=== PATIENT | male | born 1935 | race Caucasian/White ===

== ENCOUNTER → 2019-05-26 | Outpatient (CLI) | payer MEDICARE, OTHER, SELFPAY ==
[2019-05-26 17:46] LABS: BNP,B-Type NATRIURETIC PEPTIDE 185.7 pg/mL (0-100)
== END | disposition home or self-care (01) ==
PROVIDERS: Family Provider Internal Medicine; PCP Internal Medicine; Visit Provider Family Medicine
DX: R06.01 Orthopnea (principal); R06.09 Other forms of dyspnea; I25.10 Atherosclerotic heart disease of native coronary artery without angina pectoris
CPT/HCPCS: 83880

== ENCOUNTER → 2019-06-30 07:50 | Outpatient (CLI) | payer MEDICARE, OTHER, SELFPAY ==
[2016-07-25 14:23] VITALS: BMI 26.7
--- NOTE | 2019-06-30 07:53 | RAD_ITS ---
STUDY: AIR CONTRAST UPPER GI SERIES and esophagram. REASON FOR EXAM: Male, 84 years old. Dysphagia. FLUOROSCOPY TIME (if supplied): (0:53) minutes/seconds TECHNIQUE: SINGLE CONTRAST AND AIR CONTRAST FLUOROSCOPIC IMAGES. COMPARISON: None. FINDINGS: The cervical esophagus demonstrates normal motility without aspiration. There is no stricture or extrinsic mass effect. No intraluminal polypoid mass is identified. The thoracic esophagus distends well without stricture or mucosal fold thickening. No mucosal ulcerations are identified. There is no extrinsic mass effect. There are no diverticula. Small sliding hernia without gastroesophageal reflux. The patient ingest a 12 mm tablet of barium without any difficulty. The stomach distends well without mucosal fold thickening or mucosal ulceration. There is no intraluminal mass. The duodenal bulb is freely distensible without deformity or ulceration. The duodenal sweep is normal in position and caliber. RAD/Upper GI w/BA Swallow IMPRESSION: Small hiatal hernia without gastroesophageal reflux. Electronically Signed: Leonid Wilkerson, at 14:41 EDT , Service support ,
== END ==
PROVIDERS: Family Provider Family Medicine; PCP Family Medicine; Referring Provider Surgery; Visit Provider Surgery
DX: R13.10 Dysphagia, unspecified (principal)
CPT/HCPCS: 74246

== ENCOUNTER 2019-07-07 08:26 | Day surgery (SDC) | payer MEDICARE, OTHER, SELFPAY ==
[2016-07-25 14:23] VITALS: BMI 26.7
--- NOTE | 2019-06-25 01:07 | HP_ITS ---
Intake Vital Signs 06/25/19 Weight: 212 lb 06/25/19 Blood Pressure 175/75 H 06/25/19 Blood Pressure Location Rt brachial 06/25/19 Respiratory Rate 18 06/25/19 Pulse Rate 51 L 06/25/19 Pulse Ox 97 06/25/19 Oxygen Delivery Method room air Intake Visit Reasons: Anemia C-Scope/EGD Consult Chief Complaint: R hemicolectomy Armhole Raiser Lockstitch Required: No Is patient in pain?: No Allergies quinapril [From Accupril] Adverse Reaction (Verified 06/25/19 10:06) Other DAIRY Adverse Reaction (Uncoded 06/25/19 10:06) Other Medications Pravastatin [Pravachol] 40 mg PO QHS 05/14/16 [History Confirmed 06/25/19] Probenecid 500 mg PO DAILY 05/14/16 [History Confirmed 06/25/19] hydrALAZINE [Apresoline] 25 mg PO 4X/DAY 05/14/16 [History Confirmed 06/25/19] Aspirin E.C. [Ecotrin] 81 mg PO DAILY@0800 07/16/16 [History Confirmed 06/25/19] Cholecalciferol (VIT D3) [Vitamin D3] 1,000 unit PO DAILY 07/16/16 [History Confirmed 06/25/19] Colchicine 0.6 mg PO DAILY PRN PRN 07/16/16 [History Confirmed 06/25/19] Cyanocobalamin (Vitamin B-12) [B-12] 1,000 mcg PO DAILY 07/16/16 [History Confirmed 06/25/19] Metformin HCl [Metformin HCl ER] 500 mg PO DAILY 07/16/16 [History Confirmed 06/25/19] Acetaminophen [Tylenol Tablet] 650 mg PO Q6H PRN PRN #0 tab 07/29/16 [Rx Confirmed 06/25/19] amlodipine 10 mg tablet 7.5 mg PO QHS tab 06/25/19 [History Confirmed 06/25/19] docusate sodium 100 mg capsule 100 mg PO BID 06/25/19 [History Confirmed 06/25/19] ferrous sulfate 325 mg (65 mg iron) tablet 325 mg PO BID 06/25/19 [History Confirmed 06/25/19] folic acid 0.8 mg capsule 0.8 mg PO DAILY 06/25/19 [History Confirmed 06/25/19] furosemide 20 mg tablet 60 mg PO DIRECTED tab 06/25/19 [History Confirmed 06/25/19] gabapentin 300 mg capsule 300 mg PO QHS 06/25/19 [History Confirmed 06/25/19] insulin glargine (U-100) 100 unit/mL (3 mL) subcutaneous pen 14 unit SUBCUT QHS ml 06/25/19 [History Confirmed 06/25/19] losartan 100 mg tablet 100 mg PO DAILY 06/25/19 [History Confirmed 06/25/19] magnesium 71.5 mg (magnesium chloride) tablet,delayed release 71.5 mg PO BID 06/25/19 [History Confirmed 06/25/19] naproxen sodium 220 mg capsule 220 mg PO BID 06/25/19 [History Confirmed 06/25/19] potassium chloride ER 20 mEq tablet,extended release 20 meq PO BID tab 06/25/19 [History Confirmed 06/25/19] sitagliptin 50 mg tablet 50 mg PO DAILY 06/25/19 [History Confirmed 06/25/19] tamsulosin 0.4 mg capsule 0.4 mg PO DAILY 06/25/19 [History Confirmed 06/25/19] PFSH Medical History Chronic kidney disease, stage III (moderate) (Chronic) Pulmonary hypertension (Chronic) Thoracic aortic aneurysm without rupture (Chronic) Aortic stenosis (Chronic) Colon cancer, ascending (Acute) HTN (hypertension) (Chronic) Dyslipidemia (Chronic) Type II diabetes mellitus (Chronic) Surgical History S/P cataract extraction (Acute) S/P colonoscopy (Acute) S/P right heart catheterization (Acute) Status post colectomy (Acute) Family History Mother Colon cancer Heart disease Hypertension Father Cancer CVA (cerebral vascular accident) Social History (Updated 06/25/19 @ 13:07 by Barrington Lechuga MD) Smoking Status: Former smoker alcohol intake: never HPI HPI HPI: JASON STANLEY, is a 84 M who presents to the office today for HPI HPI Surgical H&P: Yes HPI: JASON STANLEY, is a 84 M who presents to the office today for surgical follow-up of a newly identified anemia. The patient status post a laparoscopic right colectomy July 25, 2016. Current CEA is 1.5. Current hemoglobin is 9.2 with hematocrit of 32.6. The patient is referred because of this anemia. He does not recall having had a follow-up colonoscopy since his colon cancer resection. In addition to this he complains of difficulties with swallowing with food seemingly getting partially stuck. He has never required an emergency upper endoscopy. He notes that he has had some weight loss but he claims part of it was intentional. He denies fever or chills or sweats. He denies any abdominal pain. He has not noticed any bright red blood per rectum or melena. He does take a daily fiber supplement. The patient was referred to [facility] nurse practitioner GI per Dr. Iron Mcnulty the patient's primary care physician because of positive fecal occult blood. The patient requested that I assist with his ongoing management. I certainly appreciate the kind opportunity. July 27, 2016 .OPERATION: Colectomy, laparoscopic right hemicolectomy DIAGNOSIS: Malignant neoplasm of ascending colonTISSUE SUBMITTED: Right colon and staple lineMICROSCOPIC DIAGNOSISRight colon and staple line, right hemicolectomy:Invasive adenocarcinoma.Villous adenoma with focal carcinoma in situ (3 cm in greatest dimension), cecum.Tubular adenoma with focal carcinoma insitu (1.5 cm in greatest dimension), ascending colon.Tubular adenomas x3.Hyperplastic polyp. Tumor site ?ascending colonTumor size ?4.5 x 3 x 1 cmMacroscopic tumor perforation ?not identifiedHistologic type -adenocarcinomaHistologic grade ?low grade (moderately differentiated)Histologic features suggestive of Microsatellite Instability:Intratumoral lymphocytic response ?mild to moderatePeritumoral lymphocytic response (Crohn-like) ?mild to moderateTumor subtype and differentiation ?Mucinous tumor component ?present (about 40%)Medullary component and histologic grade ?not identifiedMicroscopic tumor extension ?tumor invades muscularis propriaMargins:Proximal margin, distal margin and circumferential margin not involved by the tumor. Tumor is about 8 cm away from the closest proximal axial margin.Treatment effect ?no known prior treatment -Vascular invasion ?not identifiedPerineural invasion ?not identifiedTumor deposits ?not identifiedType of polyp in which invasive carcinoma arose ?villous adenoma Regional lymph nodes: Number of lymph nodes examined -23Number of lymph nodes involved -0 Distant metastasis ?not applicableAdditional pathologic findings ?Villous adenoma with focal carcinoma in situ (3 cm in greatest dimension), cecum.Tubular adenoma with focal carcinoma in situ (1.5 cm in greatest dimension), ascending colon.Tubular adenomas x3. Hyperplastic polyp.Appendix with focal hyperplastic changes at the tip.Ancillary studies:Microsatellite instability ?(RF16- 1024)Negative (no loss of mismatch repair protein; no microsatellite instability detected).Immunohistochemistry Studies for Mismatch Repair Proteins:MLH1 - intactnuclear positivity, tumor cellsMSH2 -intactnuclear positivity, tumor cellsMSH6 -intactnuclear positivity, tumor cells, focalPMS2 ?intact nuclearpositivity, tumor cells,weak PATHOLOGIC STAGE: pT2 pN0 Mx The above summary is in compliance with [employer] [place] [employer] (CAP) CancerProtocols Checklist and [place] Joint Committee on Cancer (AJCC), Staging Manual, 7th Ed.COMMENTPlease make reference to previous from [facility] dated 06/04/2016 ([id number]) proximal ascending colon mass, biopsy with diagnosis of invasive moderately differentiated colonic adenocarcinoma, cecum polyp, biopsy with diagnosis of tubulovillous adenoma with high-grade dysplasia, and ileocecal valve polyp, biopsy with diagnosis of scant superficial fragments of villous adenoma.MICROSCOPIC DESCRIPTIONSlides are reviewed.GROSS DESCRIPTION [facility] [id number], [place] [phone] Page 3of 3The contents of this transmission are privileged, confidential and exempt from disclosureunder applicable law. If you have received this information in error, [phone]. JASON STANLEY MR# [id number] is one container labeled with the patient?s name and designated right colon and staple line.? The specimen consists of a right hemicolectomy specimen consisting of segment of cecum with ascending colon with attached pericolonic adipose tissue, segment of small intestine and appendix. The cecum with ascending colon measures 21 cm in length. The small intestine measures 5 cm in length and the appendix measures 9 cm in length and 0.5 cm in diameter. A focal area of dye discoloration is noted on the serosal surface 14 cm away from the distal resection margin. The resection margins are stapled. The lumen contains fecal material. 17 cm away from the distal resection margin and 3 cm away from the ileocecal valve, there is a large polypoid tumor mass measuring 4.5 x 3 x 1 cm. A metallic clip is noted 3 cm distal from this mass. The serosal surface overlying this mass is inked black. A second smaller mass is noted in the cecum measuring 3 x 2.5 x 1.5 cm. The two larger masses are present 4 cm away from one another. Five additional polyps are alsonoted measuring 0.5 to 1.5 cm in greatest dimension. Also present in the container is mucosal tissue consistent with a staple line measuring 3 x 1 x 0.3 cm. Pericolonic adipose tissue is fixed in the lymph node revealing solution. / SJ:annette 07/25/16 Section of the appendix reveals pin-point lumen. Sections of the smaller mass reveal it appears to be intramucosal in location. Sections of the larger mass reveal almost full thickness involvement. No obvious penetration into the pericolonic adipose tissueis noted. The pericolonic adipose tissue reveals multiple lymph nodes. The largest lymph node measures 1.5 cm in greatest dimension. Order To Delivery Supervisor sections are submitted as follows: 1 ?staple line, 2 ?proximal and distal resection margins, 3 ?appendix, 4 & 5 ?each containing onelarger polyp bisected, 6 ?three smaller polyps, one bisected, one inked blue and one inked black, 7 ?three possible additional polyps, 8-11 ?smaller mass, entirely submitted, 12-17 ?larger mass, 18 ?congressional representative sections of ileocecal valve, small and large intestines, 19 ?multiple lymph nodes, 20 ?multiple lymph nodes, 21 -one bisected lymph node, 22 ?one serially sectioned lymph node, 23 ?one serially sectioned lymph node, 24 ?one bisected lymph node, 25 ?multiple lymph nodes, 26 -one bisected lymph node, 27 -one bisected lymph node. / SJ:rg 07/26/16 TC:0CPT:[id number], [id number] Electronically Signed by: Dr. Sanju Wells 07/30/16 1200 ROS General General: Yes fatigue and colon cancer; no weight change, appetite, breast cancer or weakness HEENT HEENT: Yes difficulty swallowing and eye surgery; no eye injury, swollen glands or hoarseness Endo Endocrine: Yes diabetes mellitus; no thyroid disease, thyroid cancer, Hair loss, heat intolerance or cold intolerance Skin Skin: No rash or changing moles Breast Breast: No left breast lump, right breast lump, nipple discharge, breast pain, abnormal mammogram, abnormal US or breast enlargement Musc Musculoskeletal: Yes back problems, arthritis, rheumatoid arthritis and gout; no joint pain Cardio Cardiovascular: Yes murmur, heart disease and high blood pressure; no pacemaker, atrial fibrillation, heart attack, heart stent, palpitations, shortness of breat with exertion or chest pain Psych Psychiatric: No depression, anxiety or hearing voices Resp Respiratory: Yes shortness of breath, Yes sleep apnea, Yes cough, No COPD, No asthma, No emphysema, No wheezing Gastro Gastrointestinal: No abdominal pain, No nausea or vomiting, No diarrhea, Yes constipation, Yes blood in stool, No acid reflux, Yes hemorrhoids, No ulcers, No gallbladder problem, No black,tarry stools Pascual Hematologic: No blood thinners, Yes blood disorders, No bleeding, Yes anemia, No blood clots Neuro Neurologic: No system reviewed and no additional complaints, except as docu, No as per HPI, No abnormal walking, No abnormal hearing, No abnormal movements, No abnormal speech, No behavioral changes, No burning sensations, No confusion, No seizure-like activity, No unsteadiness, No dizziness, No localized weakness, No frequent falls, No headache(s), No lack of coordination, No loss of vision, No memory loss, Yes numbness, No other visual disturbances, No radiating pain, No restless legs, No sensory deficit, No fainting, Yes tingling, No tremor(s), No weakness, No other Exam Const General: cooperative, comfortable, no acute distress Nutritional Appearance: average body habitus Orientation: alert, awake [facility] Head: normal to inspection Chest Chest palpation & inspection: normal inspection of the chest Breast Palpation: No nipple discharge Resp Effort & Inspection: normal respiratory effort Auscultation: clear to auscultation bilaterally Cardio Rate: regular rate Rhythm: regular rhythm Heart Sounds: murmur GI Inspection: normal to inspection Palpation: soft, no hepatosplenomegaly Other: Nicely healed vertical epigastric incision. Diastases recti noted but fascia appears to be intact. No hepatosplenomegaly. No tenderness. Normal bowel sounds. Musc Cervical Spine: normal cervical lordosis Neuro Cognition: normal cognition Extrem General: no calf tenderness bilaterally Psych Affect: normal affect Assessment & Plan Problems 1. Dysphasia R47.02 2. History of malignant neoplasm of colon Z85.038 3. Personal history of colonic polyps Z86.010 4. Other iron deficiency anemia D50.8 5. Stool guaiac positive R19.5 Plan I have asked the patient to temporarily hold his aspirin therapy. In order to facilitate his bowel prep we will temporarily have him hold his iron therapy. Because of his mild weight loss although he states intentional and because of his esophageal dysphasia I recommend prior to placing a scope that we get a barium esophagram/upper GI. I then recommend for him a combined esophagogastroduodenoscopy with possible biopsy or colonoscopy with possible biopsy or polypectomy as indicated. The patient has multiple sources of potential blood loss. He has had an opportunity to ask and have questions answered. He does have medical comorbidities. Some of his mobility is lessened. I anticipate using monitored anesthesia care. I certainly appreciate the ongoing opportunity of assisting with his surgical management. CC: Dr. Iron Mckeon and NAHOMI Roberts M.D., F.A.C.S. Orders Orders: Colonoscopy Today D64.9, Z85.038 EGD Today Upper GI w/BA Swallow Today R13.10 Coding Level of Care Code 88358 Diagnoses Dysphasia R47.02 History of malignant neoplasm of colon Z85.038 Personal history of colonic polyps Z86.010 Other iron deficiency anemia D50.8 ??Iron deficiency anemia type: other iron deficiency Stool guaiac positive R19.5 06/25/19 1307 <Electronically signed by Barrington tran MD> Date _ Barrington Lechuga MD I have re-examined the patient. There are no clinical changes since date of exam.
[2019-07-07] VITALS (7 sets, daily range): BP systolic 129–166; BP diastolic 54–78; PULSE 45–55; RESP 16; TEMP 36.2–36.3; O2SAT 93–97; BMI 27.1
[2019-07-07] MEDS: Lactated Ringers 1,000 ML 100 ML IV (09:28)
--- NOTE | 2019-07-07 09:45 | EGD_PTH ---
PATIENT: JASON STANLEY LOC: EN U#:[id number] AGE/SX: 84/M ROOM: RE07/07/[address]: Dr. Barrington Lechuga MD : 1935 BED: DIS: 07/07/2019 SPEC #: [id number] RECD: 07/07/19 11:37 STATUS: IRMA MARIBEL #: [id number] VIVIANA: 07/07/19 09:[address]: Barrington Lechuga DEPT: SURGICAL PATHOLOGY RECD BY: Ady Tomlinson ENTERED: 07/07/19 12:29 SP TYPE: EGD BIOPSY OT DR: Dr. Cory Mckeon MD Tissues: A - Duodenum, NOS B - Gastric mucous membrane C - Esophageal mucous membrane Procedures: Surgery Specimen Level IV HEADER OPERATION: Colonoscopy, EGD ([facility] [place] PRE-OP DIAGNOSIS: Anemia TISSUE SUBMITTED: A - Duodenal biopsy, B - Antral biopsy for H. pylori and pathology, C - Distal esophageal biopsy MICROSCOPIC DIAGNOSIS A. Duodenal biopsy: Fragments of duodenal mucosa with Kelechi gland hyperplasia. B. Antral biopsy: Mild gastritis. See microscopic description and comment. C. Distal esophageal biopsy: Fragments of squamous epithelium with mild chronic inflammation. SJ:annette 07/08/19 COMMENT B. The results of immunohistochemistry for Helicobacter pylori will be reported separately ([id number]). MICROSCOPIC DESCRIPTION Slides are reviewed. B. The specimen shows fragments of gastric mucosa with chronic inflammatory cell infiltrates in the lamina propria consisting of lymphocytes and plasma cells, consistent with mild chronic gastritis. GROSS DESCRIPTION A - Received in fixative is one container labeled with the patient's name and designated duodenal biopsy. The specimen consists of two irregular fragments of light dubon soft tissue that in aggregate measure 0.5 x 0.3 x 0.1 cm. The specimen is totally submitted in one cassette. B - Received in fixative is one container labeled with the patient's name and designated antral biopsy. The specimen consists of one irregular fragment of light dubon soft tissue that measures 0.3 x 0.3 x 0.1 cm. The specimen is totally submitted in one cassette. C - Received in fixative is one container labeled with the patient's name and designated distal esophageal biopsy. The specimen consists of two irregular fragments of light dubon soft tissue that in aggregate measure 0.4 x 0.3 x 0.1 cm. The specimen is totally submitted in one cassette. / SJ:rg 07/07/19 TC:3 CPT: 64409 x3
--- NOTE | 2019-07-07 09:45 | IMM_PTH ---
PATIENT: JASON STANLEY LOC: EN U#:[id number] AGE/SX: 84/M ROOM: RE07/07/[address]: Dr. Barrington Lechuga MD : 1935 BED: DIS: 07/07/2019 SPEC #: [id number] RECD: 07/07/19 12:55 STATUS: IRMA REQ #: [id number] VIVIANA: 07/07/19 09:[address]: Barrington Lechuga DEPT: IMMUNOHISTOCHEMISTRY RECD BY: Eliz Parra ENTERED: 07/07/19 12:56 SP TYPE: IMMUNO OTHR DR: Dr. Cory Mckeon MD Tissues: B - Stomach, NOS Procedures: H Pylori (initial) PHYSICIAN & INSTITUTION [place] [address] SPECIMEN INFORMATION: Tissue Source: B - Antral biopsy Clinical Info: Anemia Specimen Number: [id number] CPT code: 33823 METHODOLOGY: Deparaffinized sections of prefer/formalin-fixed tissue or PAP/DQ stained slides are incubated with monoclonal/polyclonal antibodies/oligonucleotide probes. Localization is made via biotin free immunoperoxidase method. Appropriate controls are performed and reacted as expected. Results on target cell population are indicated in the following table: RESULTS: ANTIBODY / CLONE RESULT Block B H Pylori (polyclonal) negative These tests were developed and their performance characteristics determined by [facility]. They may not have been cleared or approved by the U.S. Food and Drug Administration. The FDA has determined that such clearance or approval is not necessary. INTERPRETATION: B. Antral biopsy: Negative for Helicobacter pylori organisms. SJ:annette 07/08/19
--- NOTE | 2019-07-07 10:51 | OP.ENDO_ITS ---
07/07/2019 Cory Mckeon Re : Upper GI endoscopy procedure for Joel Cobbshobha Mckeon This procedure was performed on Sunday, July 07, 2019. My impressions and recommendations are as follows: Impressions : - Z-line regular, 44 cm from the incisors. Biopsied. - Medium-sized hiatal hernia. - Erythematous mucosa in the antrum. Biopsied. - Erythematous duodenopathy. Biopsied. Recommendations : - Discharge patient to home. - Resume previous diet. - Continue present medications. - Telephone my office for pathology results in 1 week. No site of active inflammation or bleeding My findings are described in the full procedure note, which is enclosed. If I can be of further assistance, please feel free to contact me at Doctor phone number(s): Work: . Sincerely, Barrington Lechuga MD 07/07/2019 10:50:38 AM This report has been signed electronically.
--- NOTE | 2019-07-07 10:56 | OP.ENDO_ITS ---
07/07/2019 Cory Mckeon Re : Colonoscopy procedure for Joel Gardiner Mike This procedure was performed on Sunday, July 07, 2019. My impressions and recommendations are as follows: Impressions : - Preparation of the colon was fair. - Non-thrombosed external hemorrhoids, non-thrombosed internal hemorrhoids, internal hemorrhoids that do not return to the anal canal, thus continuously prolapsed (Grade IV) and enlarged prostate found on digital rectal exam. - Patent functional end-to-end ileo-colonic anastomosis. - Diverticulosis in the sigmoid colon and in the descending colon. - No specimens collected. Recommendations : - Discharge patient to home. - Resume previous diet. - Continue present medications. - Repeat colonoscopy in 3 years for surveillance. Significant internal hemorrhoids could be source of GI blood loss enemia if clinically witnessed My findings are described in the full procedure note, which is enclosed. If I can be of further assistance, please feel free to contact me at Doctor phone number(s): Work: . Sincerely, Barrington Lechuga MD 07/07/2019 10:55:52 AM This report has been signed electronically.
[2019-07-07 16:31] LABS: Bedside Glucose 114 mg/dL (70-110)
== END 2019-07-07 12:11 | disposition home or self-care (01) ==
LOC: EN 08:27 → AC 08:28
PROVIDERS: Family Provider Family Medicine; PCP Family Medicine; Referring Provider Family Medicine; Visit Provider Surgery
PROC: 0DJD8ZZ Inspection of Lower Intestinal Tract, Via Natural or Artificial Opening Endoscopic (ICD-10-PCS; CPT 45378; principal; 2019-07-07 09:40)
DX: K29.70 Gastritis, unspecified, without bleeding (principal); K21.0 Gastro-esophageal reflux disease with esophagitis; K31.89 Other diseases of stomach and duodenum; K44.9 Diaphragmatic hernia without obstruction or gangrene; K64.3 Fourth degree hemorrhoids; N40.0 Benign prostatic hyperplasia without lower urinary tract symptoms; K57.90 Diverticulosis of intestine, part unspecified, without perforation or abscess without bleeding; D50.8 Other iron deficiency anemias; I13.0 Hypertensive heart and chronic kidney disease with heart failure and stage 1 through stage 4 chronic kidney disease, or unspecified chronic kidney disease; I50.9 Heart failure, unspecified; E11.22 Type 2 diabetes mellitus with diabetic chronic kidney disease; N18.3 Chronic kidney disease, stage 3 (moderate); I27.20 Pulmonary hypertension, unspecified; Z98.0 Intestinal bypass and anastomosis status; Z87.891 Personal history of nicotine dependence; Z85.46 Personal history of malignant neoplasm of prostate; Z86.010 Personal history of colon polyps; Z85.038 Personal history of other malignant neoplasm of large intestine; Z79.82 Long term (current) use of aspirin; Z79.4 Long term (current) use of insulin; Z79.899 Other long term (current) drug therapy
CPT/HCPCS: 43239; 45378; 82962; 88305; 88342; J7120

== ENCOUNTER → 2019-09-16 | Outpatient (CLI) | payer MEDICARE, OTHER, SELFPAY ==
[2019-09-16 10:49] VITALS: BMI 28.3
[2019-09-16 17:08] LABS: Absolute Lymphocyte Count 1.88 X10^3/uL (0.83-4.51); Absolute Neutrophil Count 4.3 X10^3/uL (2.0-7.7); Basophil# 0.07 X10^3/uL; Eosinophil# 0.28 X10^3/uL; Eosinophils% 3.9 % (0-5); Hematocrit 34.5 % (40-54); Hemoglobin 10.6 g/dL (13.0-16.5); Lymphocyte # 1.88 X10^3/ul (4.0); Lymphocyte % 26.3 % (19-41); Mean Corp Hgb Conc 30.7 g/dL (32-36); Mean Corpuscular Hgb 28.9 pg (27.0-32.0); Mean Platelet Vol. 10.3 fl (6.2-12.0); Monocyte# 0.63 X10^3/uL; Monocyte% 8.8 % (0-10); NRBC Flagged by Analyzer 0 % (0-5); Neutrophil # 4.27 X10^3/uL (2.7-7.7); Neutrophil % 59.7 % (47-70); Platelet Count 213 K/mm3 (150-450); RBC Distribution Width CV 16.3 % (11.6-14.6); RBC Distribution Width SD 55.7 fl (35.1-43.9); Red Blood Count 3.67 M/mm3 (4.6-6.2); White Blood Count 7.2 K/mm3 (4.4-11.0)
[2019-09-16 18:01] LABS: Anion Gap 7 (5-15); BUN 27 mg/dL (7-18); Calcium,Total 9.1 mg/dL (8.5-10.1); Chloride 102 mmol/L (98-107); Creatinine, Serum 1.35 mg/dL (0.70-1.30); EST Glomerular Filtration Rate 53 mL/min (>60); Est Glom Filt Rate - Afr Amer 65 mL/min (>60); Glucose 117 mg/dL (74-106); Potassium 4.3 mmol/L (3.5-5.1); Sodium Level 138 mmol/L (136-145); Thyroid Stim Hormone (TSH) 2.57 uIU/mL (0.358-3.74)
== END | disposition home or self-care (01) ==
LOC: LAB 15:04
PROVIDERS: Family Provider Family Medicine; PCP Family Medicine; Referring Provider Internal Medicine Cardiovascular Disease; Visit Provider Internal Medicine Cardiovascular Disease
DX: I10 Essential (primary) hypertension (principal); I35.0 Nonrheumatic aortic (valve) stenosis; I71.2 Thoracic aortic aneurysm, without rupture
CPT/HCPCS: 36415; 80048; 84443; 85025

== ENCOUNTER 2022-01-18 15:32 | Emergency (ER) | payer MEDICARE, SELFPAY ==
[2022-01-18 15:33] VITALS: BP 179/83; PULSE 78; RESP 16; TEMP 36.2; O2SAT 96; BMI 26.4
--- NOTE | 2022-01-18 15:50 | EKG12_ITS ---
Test Reason : Blood Pressure : / mmHG Vent. Rate : 068 BPM Atrial Rate : 068 BPM P-R Int : 248 ms QRS Dur : 190 ms QT Int : 486 ms P-R-T Axes : 101 -31 126 degrees QTc Int : 516 ms Sinus rhythm with 1st degree A-V block Left axis deviation Left bundle branch block Abnormal ECG Confirmed by NATIVIDAD STEWART, DARIA ([id number]), assistant film editor DOUG CHILDS ([id number]) on 01/19/2022 9:16:20 AM Referred By: THANIA Confirmed By:DARIA HENSON MD
--- NOTE | 2022-01-18 16:56 | RAD_ITS ---
STUDY: X-RAY CHEST REASON FOR EXAM: Male, 86 years old. Chest pain TECHNIQUE: Single AP portable view of the chest. COMPARISON: 06/30/2012 FINDINGS: EKG leads overlie the chest Chronic interstitial changes in both lung garcia, no superimposed acute pulmonary process. There is no demonstrated pleural abnormality. Normal size heart. Normal mediastinum and malissa. Normal visualized pulmonary arteries. There is atherosclerotic calcification of the aortic arch with tortuosity. There are diffuse degenerative changes of the visualized thoracic spine. Normal visualized ribs, clavicles, and shoulders. There is no demonstrated abnormality of the visualized soft tissue structures of the upper abdomen. RAD/Chest 1 View (Portable) IMPRESSION: Chronic interstitial changes in both lung garcia without a superimposed acute pulmonary process Electronically Signed: Colt Moreno MD at 17:11 EST ,
--- NOTE | 2022-01-18 16:59 | ED.VIS.CHEST ---
HPI History of Present Illness Chief Complaint: Chest Pain Narrative Narrative: 86-year-old male with PMH of HTN, HLD, aortic stenosis, LBBB, colon cancer s/p resection presents with chest pain. He states that 3 days ago he was started on 2 new blood pressure medications. He took the first dose before bed. Then when he laid down to sleep he had chest aching and pressure. There was no radiation. No shortness of breath, nausea, vomiting, diaphoresis. It resolved after several hours while lying in bed and he was able to go to sleep. He has not had any symptoms since then. Today he had a follow-up with his PCP and when he relayed this story they sent him to the ED. Presently the only medications he takes for his blood pressure are hydralazine, metoprolol, and HCTZ. Also of note he reports a normal stress test 1 year ago. [facility] Medical History (Updated 01/18/22 @ 19:58 by FARIDEH Escudero) Atherosclerosis of coronary artery of [place] heart without angina pectoris Carotid artery stenosis Chronic diastolic (congestive) heart failure Chronic kidney disease, stage III (moderate) Colon cancer, ascending DDD (degenerative disc disease) Dyslipidemia Dysphasia Essential (primary) hypertension Gout History of malignant neoplasm of colon Iron deficiency anemia Left bundle branch block Lumbar stenosis Non-rheumatic aortic stenosis Peripheral vascular disease Personal history of colonic polyps Prostate cancer Secondary pulmonary arterial hypertension Stool guaiac positive Thoracic aortic aneurysm without rupture Type II diabetes mellitus Home Medications hydralazine 25 mg PO 4X/DAY 05/14/16 [History Last Taken 07/07/19] pravastatin 40 mg PO QHS 05/14/16 [History Last Taken Unknown] probenecid 500 mg PO DAILY 05/14/16 [History Last Taken Unknown] aspirin 81 mg PO DAILY@0800 07/16/16 [History Last Taken Unknown] cholecalciferol (vitamin D3) 1,000 unit PO DAILY 07/16/16 [History Last Taken Unknown] cyanocobalamin (vitamin B-12) 1,000 mcg PO DAILY 07/16/16 [History Last Taken Unknown] metformin 500 mg PO DAILY 07/16/16 [History Last Taken Unknown] gabapentin 300 mg capsule 300 mg PO QHS 06/25/19 [History Last Taken Unknown] losartan 100 mg tablet 100 mg PO DAILY 06/25/19 [History Last Taken 07/07/19] sitagliptin 50 mg tablet 50 mg PO DAILY 06/25/19 [History Last Taken Unknown] tamsulosin 0.4 mg capsule 0.4 mg PO DAILY 06/25/19 [History Last Taken Unknown] docusate sodium 100 mg capsule 100 mg PO BID PRN 09/11/19 [History Last Taken Unknown] ferrous sulfate 325 mg (65 mg iron) tablet 325 mg PO DAILY tab 09/11/19 [History Last Taken Unknown] folic acid 400 mcg tablet 400 mcg PO DAILY 09/11/19 [History Last Taken Unknown] insulin glargine 100 unit/mL (3 mL) subcutaneous pen 14 unit SUBCUT QHS ml 09/11/19 [History Last Taken Unknown] naproxen sodium 220 mg capsule 220 mg PO BID PRN 09/11/19 [History Last Taken Unknown] furosemide 40 mg tablet 40 mg PO DAILY #90 tab 09/16/19 [Rx Last Taken Unknown] amlodipine 10 mg tablet See Rx Instructions .ROUTE .COMPLEX #90 tab 11/09/21 [Rx Last Taken Unknown] clonidine HCl 0.1 mg PO BID 01/18/22 [History Last Taken Unknown] metoprolol tartrate 12.5 mg PO BID 01/18/22 [History Last Taken Unknown] Allergy/AdvReac Type Severity Reaction Status Date / Time quinapril [From Accupril] AdvReac Other Verified 09/16/19 10:50 DAIRY AdvReac Other Uncoded 09/16/19 10:50 Family History Mother Colon cancer Heart disease Hypertension CAD (coronary artery disease) Father Cancer prostate CVA (cerebral vascular accident) CAD (coronary artery disease) Brother CAD (coronary artery disease) CABG Brother CAD (coronary artery disease) CABG Surgical History H/O colectomy History of left heart catheterization (07/2001) S/P cataract extraction S/P colonoscopy Status post colectomy Social History (Updated 09/16/19 @ 12:[address] Carloz Sinclair MD) Smoking Status: Former smoker how long ago did patient quit smokin years ago alcohol intake: never substance use type: does not use EXAM Physical Exam Const Vital Signs: 01/18/22 15:33 01/18/22 17:09 01/18/22 18:29 Temperature 97.2 F L Temperature Source Temporal Pulse Rate 78 55 L 53 L Respiratory Rate 16 16 18 Blood Pressure 179/83 H 148/74 H 157/77 H Blood Pressure Mean 115 98 103 Pulse Ox 96 95 96 Oxygen Delivery Method Room Air Room Air Room Air 01/18/22 19:07 Temperature Temperature Source Pulse Rate 53 L Respiratory Rate 18 Blood Pressure 153/77 H Blood Pressure Mean 102 Pulse Ox 97 Oxygen Delivery Method Room Air MDM MDM MDM Narrative Medical decision making narrative: Patient had chest pain 3 days ago. After relaying the symptoms to his PCP the office sent him in for evaluation. He is asymptomatic presently. He appears well and nontoxic. Heart rate is in the 50s, otherwise normal vital signs. He states he chronically runs 40-50s bmp and is on metoprolol. Today EKG is sinus bradycardia with no acute changes. LBBB is chronic. Troponin is 34, delta 40. Chest x-ray shows no acute process. With no chest pain over the last 2 days and negative work-up he is stable for outpatient follow-up with his PCP. He was told to return if he develops new chest pain or new symptoms and was discharged in stable condition. Diagnosis 1. Chest pain, resolved Lab Data Labs: Laboratory Results - last 24 hr 01/18/22 01/18/22 01/18/22 17:07 17:07 19:03 WBC 5.5 RBC 3.31 L Hgb 9.6 L Hct 31.2 L MCV 94.3 H MCH 29.0 MCHC 30.8 L RDW Std Deviation 51.0 H RDW Coeff of Rachelle 14.8 H Plt Count 210 MPV 9.7 Immature Gran % (Auto) 0.200 Neut % (Auto) 57.7 Lymph % (Auto) 27.1 [place] % (Auto) 11.2 H Eos % (Auto) 3.1 Baso % (Auto) 0.7 Absolute Neuts (auto) 3.2 Absolute Lymphs (auto) 1.50 Nucleated RBC % 0 Sodium 138 Potassium 3.9 Chloride 106 Carbon Dioxide 29.0 Anion Gap 3 L BUN 27 H Creatinine 1.36 H Estim Creat Clear Calc 44.06 Est GFR (MDRD) Af Amer 64 Est GFR (MDRD) Non-Af 53 L BUN/Creatinine Ratio 19.9 Glucose 90 Calcium 9.2 Troponin I High Sens 34 40 Radiography Chest X-Ray - ED: 1 View, Read by ED Physician, Normal, Heart, Lungs, Mediastinum, Bony Structures, No Acute Disease and Chronic Changes Diagnostic Testing: Clinical Impression(s) from Imaging Studies Chest X-Ray 01/18/22 16:56 IMPRESSION: Chronic interstitial changes in both lung garcia without a superimposed acute pulmonary process Electronically Signed: Colt Moreno MD at 17:11 EST Reading Location ID and State: [facility] / [place] , Service support , Discharge Plan Triage Chief Complaint: Chest Pain ED Provider: Emily Terrazas Dx/Rx/DC Orders Clinical Impression: Chest pain Instructions: ED Chest Pain, Noncardiac Prescriptions: No Action furosemide [Lasix] 40 mg tablet 40 mg PO DAILY Qty: 90 RF: 5 gabapentin [Neurontin] 300 mg capsule 300 mg PO QHS RF: 0 losartan [Cozaar] 100 mg tablet 100 mg PO DAILY RF: 0 tamsulosin [Flomax] 0.4 mg capsule 0.4 mg PO DAILY RF: 0 naproxen sodium [Aleve] 220 mg capsule 220 mg PO BID PRNRF: 0 ferrous sulfate [Feosol] 325 mg (65 mg iron) tablet 325 mg PO DAILY RF: 0 docusate sodium [Colace] 100 mg capsule 100 mg PO BID PRNRF: 0 folic acid 400 mcg tablet 400 mcg PO DAILY RF: 0 pravastatin 40 MG tablet 40 mg PO QHS RF: 0 hydralazine 25 MG tablet 25 mg PO 4X/DAY RF: 0 probenecid 500 MG tablet 500 mg PO DAILY RF: 0 sitagliptin 50 mg tablet 50 mg PO DAILY RF: 0 insulin glargine 100 unit/mL (3 mL) insulin pen 14 unit subcut QHS RF: 0 cyanocobalamin (vitamin B-12) 1,000 MCG tablet 1,000 mcg PO DAILY RF: 0 aspirin 81 MG tablet 81 mg PO DAILY@0800 RF: 0 metformin 500 MG tablet,ER sandra.retention 24 hr 500 mg PO DAILY RF: 0 cholecalciferol (vitamin D3) 1,000 UNIT tablet 1,000 unit PO DAILY RF: 0 clonidine HCl 0.1 mg tablet 0.1 mg PO BID RF: 0 metoprolol tartrate 25 mg tablet 12.5 mg PO BID RF: 0 amlodipine 10 mg tablet See Rx Instructions .ROUTE .COMPLEX Qty: 90 RF: 3 Primary Care Provider: Cory Mckeon Referrals: Cory Mckeon MD [Primary Care Provider] - Activity Restrictions/Additional Instructions: You were evaluated for chest pain you had a few days ago. Today there is no evidence of a heart attack. I feel you are safe to go home. Please check your blood pressure daily and follow-up with your primary care doctor next week. If you have new or worsening symptoms return to the ER. Disposition Disposition: Home, Self Care Discharge Date/Time: 01/18/22 20:14
[2022-01-18 17:09] VITALS: BP 148/74; PULSE 55; RESP 16; O2SAT 95
[2022-01-18 17:29] LABS: Absolute Neutrophil Count 3.2 X10^3/uL (2.0-7.7); Basophil# 0.04 X10^3/uL; Basophil% 0.7 % (0-1); Eosinophil# 0.17 X10^3/uL; Eosinophils% 3.1 % (0-5); Hematocrit 31.2 % (40-54); Hemoglobin 9.6 g/dL (13.0-16.5); Lymphocyte % 27.1 % (19-41); Mean Corp Hgb Conc 30.8 g/dL (32-36); Mean Corpuscular Volume 94.3 fL (80-94); Mean Platelet Vol. 9.7 fl (6.2-12.0); Monocyte# 0.62 X10^3/uL; Monocyte% 11.2 % (0-10); NRBC Flagged by Analyzer 0 % (0-5); Neutrophil # 3.19 X10^3/uL (2.7-7.7); Neutrophil % 57.7 % (47-70); Platelet Count 210 K/mm3 (150-450); RBC Distribution Width CV 14.8 % (11.6-14.6); Red Blood Count 3.31 M/mm3 (4.6-6.2); White Blood Count 5.5 K/mm3 (4.4-11.0)
[2022-01-18 17:55] LABS: Anion Gap 3 (5-15); BUN 27 mg/dL (7-18); BUN/Creat Ratio 19.9 RATIO (10-20); Calcium,Total 9.2 mg/dL (8.5-10.1); Chloride 106 mmol/L (98-107); Creatinine, Serum 1.36 mg/dL (0.70-1.30); EST Glomerular Filtration Rate 53 mL/min (>60); Est Glom Filt Rate - Afr Amer 64 mL/min (>60); Estimated Creatinine Clearance 44.06 ml/min; Glucose 90 mg/dL (74-106); Potassium 3.9 mmol/L (3.5-5.1); Sodium Level 138 mmol/L (136-145); Troponin-I HS 34 pg/mL (3.0-78.0)
[2022-01-18 18:29] VITALS: BP 157/77; PULSE 53; RESP 18; O2SAT 96
[2022-01-18 19:07] VITALS: BP 153/77; PULSE 53; RESP 18; O2SAT 97
[2022-01-18 19:25] LABS: Troponin-I HS 40 pg/mL (3.0-78.0)
== END 2022-01-18 20:14 | disposition home or self-care (01) ==
PROVIDERS: Emergency Provider Physician Assistant; PCP Family Medicine; Visit Provider Physician Assistant
DX: R07.89 Other chest pain (principal); E11.51 Type 2 diabetes mellitus with diabetic peripheral angiopathy without gangrene; I13.0 Hypertensive heart and chronic kidney disease with heart failure and stage 1 through stage 4 chronic kidney disease, or unspecified chronic kidney disease; I50.32 Chronic diastolic (congestive) heart failure; E11.22 Type 2 diabetes mellitus with diabetic chronic kidney disease; I71.2 Thoracic aortic aneurysm, without rupture; Z79.4 Long term (current) use of insulin; N18.30 Chronic kidney disease, stage 3 unspecified; E78.5 Hyperlipidemia, unspecified; Z87.891 Personal history of nicotine dependence; I25.10 Atherosclerotic heart disease of native coronary artery without angina pectoris; I44.7 Left bundle-branch block, unspecified; Z85.038 Personal history of other malignant neoplasm of large intestine; I35.0 Nonrheumatic aortic (valve) stenosis; Z85.46 Personal history of malignant neoplasm of prostate; M10.9 Gout, unspecified; Z79.82 Long term (current) use of aspirin; Z79.899 Other long term (current) drug therapy; Z90.49 Acquired absence of other specified parts of digestive tract
CPT/HCPCS: 36415; 71045; 80048; 84484; 85025; 93005; 99284; A4216

== ENCOUNTER 2024-03-18 16:49 | Inpatient (IN) | payer MEDICARE, SELFPAY ==
[2024-03-18] VITALS (8 sets, daily range): BP systolic 129–164; BP diastolic 75–88; PULSE 43–89; RESP 16–18; TEMP 36.4–36.6; O2SAT 86–95; BMI 26.4; BMI 26.0
--- NOTE | 2024-03-18 18:16 | RAD_ITS ---
INDICATION: chest pain EXAMINATION/TECHNIQUE: X-RAY - XR Chest 1 View COMPARISON: None. FINDINGS: Patchy opacities in the left lower lobe. Tortuous and calcified thoracic aorta. The heart is markedly enlarged. Trace left pleural effusion. Degenerative changes of the thoracic spine. RAD/Chest 1 View (Portable) IMPRESSION: Patchy opacities in the left lower lobe may represent edema, atelectasis or infection. Marked cardiomegaly with trace left pleural effusion.. Electronically Signed: Iron Noble MD at 19:47 EDT ,
--- NOTE | 2024-03-18 18:16 | EKG12_ITS ---
Test Reason : Blood Pressure : / mmHG Vent. Rate : 039 BPM Atrial Rate : 000 BPM P-R Int : 000 ms QRS Dur : 202 ms QT Int : 582 ms P-R-T Axes : 000 -10 164 degrees QTc Int : 468 ms Critical Test Result: : Low Heart Rate Atrial Fibrillation Idioventricular rhythm Left bundle branch block Abnormal ECG Confirmed by NATIVIDAD STEWART, DARIA ([id number]), photography editor ABIOLA RIVAS ([id number]) on 03/19/2024 11:38:57 AM Referred By: Confirmed By:DARIA HENSON MD
--- NOTE | 2024-03-18 18:16 | ED.VIS.DYS ---
HPI History of Present Illness Chief Complaint: Shortness of Breath Narrative Narrative: 89-year-old male presenting with dyspnea. He states been worse for about a week. He has a history of CHF and admits to dyspnea on exertion, lower extremity edema, orthopnea. Patient is been sleeping in his lazy boy chair. He is not having chest pain but is unable to walk for long distances. He has been taking his Lasix as prescribed. Denies fevers, chills, cough. He does feel like he is lightheaded. He feels generally weak. [facility] Medical History Atherosclerosis of coronary artery of [place] heart without angina pectoris Carotid artery stenosis Chronic diastolic (congestive) heart failure Chronic kidney disease, stage III (moderate) Colon cancer, ascending DDD (degenerative disc disease) Dyslipidemia Dysphasia Essential (primary) hypertension Gout History of malignant neoplasm of colon Iron deficiency anemia Left bundle branch block Lumbar stenosis Non-rheumatic aortic stenosis Peripheral vascular disease Personal history of colonic polyps Prostate cancer Secondary pulmonary arterial hypertension Stool guaiac positive Thoracic aortic aneurysm without rupture Type II diabetes mellitus Home Medications hydralazine 25 mg tablet 50 mg PO 4X/DAY 05/14/16 [History Last Taken 03/18/24] pravastatin 40 mg tablet 40 mg PO QHS 05/14/16 [History Last Taken 03/17/24] probenecid 500 mg tablet 500 mg PO DAILY 05/14/16 [History Last Taken 03/18/24] aspirin 81 mg tablet,delayed release 81 mg PO DAILY@0800 07/16/16 [History Last Taken 03/18/24] cholecalciferol (vitamin D3) 25 mcg (1,000 unit) tablet 1,000 unit PO DAILY 07/16/16 [History Last Taken 03/18/24] cyanocobalamin (vitamin B-12) 1,000 mcg tablet 1,000 mcg PO DAILY 07/16/16 [History Last Taken 03/18/24] metformin 500 mg 24 hr tablet,extended release (gastric retention) 500 mg PO DAILY 07/16/16 [History Last Taken 03/18/24] losartan 100 mg tablet (Cozaar) 150 mg PO DAILY 06/25/19 [History Last Taken 03/18/24] sitagliptin phosphate 50 mg tablet 50 mg PO DAILY 06/25/19 [History Last Taken 03/18/24] tamsulosin 0.4 mg capsule (Flomax) 0.8 mg PO QHS 06/25/19 [History Last Taken 03/17/24] docusate sodium 100 mg capsule (Colace) 100 mg PO BID PRN constipation 09/11/19 [History Last Taken Unknown] ferrous sulfate 325 mg (65 mg iron) tablet (Feosol) 325 mg PO BID 09/11/19 [History Last Taken 03/18/24] folic acid 400 mcg tablet 800 mcg PO DAILY 09/11/19 [History Last Taken 03/18/24] insulin glargine 100 unit/mL (3 mL) subcutaneous pen 8 unit subcut QHS 09/11/19 [History Last Taken 03/17/24] furosemide 40 mg tablet (Lasix) 40 mg PO DAILY #90 tabs 09/16/19 [Rx Last Taken 03/18/24] metoprolol tartrate 25 mg tablet 12.5 mg PO BID 01/18/22 [History Last Taken 03/18/24] amlodipine 10 mg tablet See Rx Instructions .Route .COMPLEX 03/18/24 [History Last Taken 03/17/24] blood sugar diagnostic (True Metrix Glucose Test Strip) 03/18/24 [History Last Taken Unknown] gabapentin 400 mg capsule 400 mg PO QHS 03/18/24 [History Last Taken 03/18/24] latanoprost 0.005 % eye drops 1 drp ophthalmic (eye) QHS 03/18/24 [History Last Taken 03/17/24] magnesium chloride 71.5 mg (magnesium chloride) tablet,delayed release 71.5 mg PO BID 03/18/24 [History Last Taken 03/18/24] pen needle, diabetic 31 gauge x 3/16 (Droplet Pen Needle) 03/18/24 [History Last Taken Unknown] potassium chloride 20 mEq tablet,extended release(part/cryst) 20 meq PO DAILY 03/18/24 [History Last Taken 03/18/24] Allergy/AdvReac Type Severity Reaction Status Date / Time Milk Containing Products AdvReac NEEDS Verified 03/18/24 17:21 (Dairy) FOLLOW-UP [Milk Containing Products] quinapril [From Accupril] AdvReac Other Verified 03/18/24 17:21 Family History Mother Colon cancer Heart disease Hypertension CAD (coronary artery disease) Father Cancer prostate CVA (cerebral vascular accident) CAD (coronary artery disease) Brother CAD (coronary artery disease) CABG Brother CAD (coronary artery disease) CABG Surgical History H/O colectomy History of left heart catheterization (07/2001) S/P cataract extraction S/P colonoscopy Status post colectomy Social History household members: spouse Smoking Status: Former smoker how long ago did patient quit smokin years ago alcohol intake: never substance use type: does not use ROS ROS ED Constitutional Constitutional ED: Denies chills, fever(s) or sweats Eyes Eyes: Denies blurry vision or change in vision ENT ENT ED: Denies ear pain or sore throat Cardiovascular Cardiovascular: Reports orthopnea; Denies chest pain, palpitations or racing heartbeat Respiratory/Chest Respiratory/Chest: Reports dyspnea, dyspnea on exertion and orthopnea; Denies cough or sputum Gastrointestinal Gastrointestinal: Denies abdominal pain, constipation, diarrhea, nausea or vomiting Genitourinary Genitourinary ED: Denies dysuria, hematuria or urinary frequency Musculoskeletal Musculoskeletal: Denies arthralgias, myalgias or neck pain Integumentary Denies abscess, Abrasions or rash Neurologic Neurologic: Denies headache(s), paresthesias or weakness Psychiatric Psychiatric: Denies anxiety, depression, suicidal ideation or suicidal thoughts Endocrine Endocrinology: Denies polydipsia or polyuria EXAM Physical Exam Const Vital Signs: 03/18/24 16:50 03/18/24 17:21 03/18/24 18:16 Temperature 97.6 F L Temperature Source Temporal Pulse Rate 89 Respiratory Rate 16 Respiratory Effort Short of Breath Labored Respiratory Depth Deep Respiratory Pattern Tachypnea Blood Pressure 164/88 H Blood Pressure Mean 113 Pulse Ox 94 86 Oxygen Delivery Method Room Air Room Air Room Air Oxygen Flow Rate (L/min) 03/18/24 18:49 03/18/24 20:00 Temperature 97.9 F Temperature Source Oral Pulse Rate 48 L 43 L Respiratory Rate 18 16 Respiratory Effort Respiratory Depth Respiratory Pattern Blood Pressure 138/87 H 129/80 H Blood Pressure Mean 104 96 Pulse Ox 95 95 Oxygen Delivery Method Nasal Cannula Nasal Cannula Oxygen Flow Rate (L/min) 2 2 Positive well nourished General Appearance ED: NAD HEENT Reports moist mucous membranes Eyes PERRL and EOMs intact bilaterally Neck no lymphadenopathy Resp normal respiratory effort Auscultation: diminished lung sounds bilateral Cardio Rate: bradycardia Rhythm: abnormal rhythm irregularly irregular Extremity General Extremety ED: Yes edema; Negative for tenderness General Extremity: edema Neuro oriented x3 and CN's II-XII intact bilaterally Sensorium / Orientation: alert Motor Exam: strength 5/5 throughout Psych mental status grossly normal Skin no wounds MDM MDM MDM Narrative Medical decision making narrative: Patient presenting with dyspnea. Clinically he sounds like he has CHF with the orthopnea, dyspnea on exertion, lower extremity edema. Differential also includes dysrhythmia, dehydration, electrolyte abnormalities, ACS, pneumonia. CBC was obtained to assess white blood cell count, hemoglobin, platelets. BMP to assess renal function, electrolytes, glucose. High-sensitivity troponin and BNP were obtained as well as EKG to rule out cardiac etiology. CBC showed leukopenia with a white blood count 4.3. Hemoglobin 8.5 near baseline. Creatinine elevated today 1.64. Did hold IV fluids due to the patient being in heart failure. High-sensitivity opponent 39 and BNP 589.7. Chest x-ray on my interpretation shows evidence of CHF and cardiomegaly. There is a pleural effusion on the left. Patient hypoxic in bed and I did not ambulate him due to his bradycardia. EKG on my interpretation showed A-fib with a ventricular rate of 38 beats per minutes. Patient has no history of A-fib and is not anticoagulated. Reviewed with Dr. Sinclair who recommended holding the metoprolol and diuresing him and he also recommended holding metoprolol for now. Patient was given 40 mg of Lasix prior to admission. Discussed with hospitalist for admission. Impression: 1. CHF exacerbation 2. JENNIFER 3. New onset A-fib 4. Bradycardia Lab Data Attestation: I reviewed the patient's lab results. Labs: Laboratory Results - last 24 hr 03/18/24 03/18/24 18:21 18:27 WBC 4.3 L RBC 2.99 L Hgb 8.5 L Hct 28.0 L MCV 93.6 MCH 28.4 MCHC 30.4 L RDW Std Deviation 56.8 H RDW Coeff of Rachelle 16.5 H Plt Count 154 MPV 9.9 Immature Gran % (Auto) 0.200 Neut % (Auto) 66.7 Lymph % (Auto) 16.9 L [place] % (Auto) 14.1 H Eos % (Auto) 1.2 Baso % (Auto) 0.9 Absolute Neuts (auto) 2.9 Absolute Lymphs (auto) 0.73 L Nucleated RBC % 0 Sodium 137 Potassium 4.1 Chloride 106 Carbon Dioxide 29.0 Anion Gap 2 L BUN 35 H Creatinine 1.64 H Estim Creat Clear Calc 33.52 Est GFR (MDRD) Af Amer 51 L Est GFR (MDRD) Non-Af 42 L BUN/Creatinine Ratio 21.3 H Glucose 95 Calcium 8.7 Magnesium 2.4 Troponin I High Sens 39 B-Natriuretic Peptide 589.7 H Radiography Diagnostic Testing: Clinical Impression(s) from Imaging Studies Chest X-Ray 03/18/24 18:16 IMPRESSION: Patchy opacities in the left lower lobe may represent edema, atelectasis or infection. Marked cardiomegaly with trace left pleural effusion.. Electronically Signed: Iron Noble MD at 19:47 EDT , Discharge Plan Disposition Disposition: Acute Care Hospital [facility] Discharge Date/Time: 03/18/24 21:07
[2024-03-18 18:56] LABS: Absolute Lymphocyte Count 0.73 X10^3/uL (0.83-4.51); Absolute Neutrophil Count 2.9 X10^3/uL (2.0-7.7); Basophil# 0.04 X10^3/uL; Basophil% 0.9 % (0-1); Eosinophil# 0.05 X10^3/uL; Eosinophils% 1.2 % (0-5); Hemoglobin 8.5 g/dL (13.0-16.5); Lymphocyte # 0.73 X10^3/ul (0.83-4.51); Lymphocyte % 16.9 % (19-41); Mean Corp Hgb Conc 30.4 g/dL (32-36); Mean Corpuscular Hgb 28.4 pg (27.0-32.0); Mean Corpuscular Volume 93.6 fL (80-94); Mean Platelet Vol. 9.9 fl (6.2-12.0); Monocyte# 0.61 X10^3/uL; Monocyte% 14.1 % (0-10); NRBC Flagged by Analyzer 0 % (0-5); Neutrophil # 2.89 X10^3/uL (2.7-7.7); Neutrophil % 66.7 % (47-70); Platelet Count 154 K/mm3 (150-450); RBC Distribution Width CV 16.5 % (11.6-14.6); RBC Distribution Width SD 56.8 fl (35.1-43.9); Red Blood Count 2.99 M/mm3 (4.6-6.2); White Blood Count 4.3 K/mm3 (4.4-11.0)
[2024-03-18 19:14] LABS: Anion Gap 2 (5-15); BUN 35 mg/dL (7-18); BUN/Creat Ratio 21.3 RATIO (10-20); Calcium,Total 8.7 mg/dL (8.5-10.1); Chloride 106 mmol/L (98-107); Creatinine, Serum 1.64 mg/dL (0.70-1.30); EST Glomerular Filtration Rate 42 mL/min (>60); Est Glom Filt Rate - Afr Amer 51 mL/min (>60); Estimated Creatinine Clearance 33.52 ml/min; Glucose 95 mg/dL (74-106); Potassium 4.1 mmol/L (3.5-5.1); Sodium Level 137 mmol/L (136-145); Troponin-I HS 39 pg/mL (3.0-78.0)
[2024-03-18 19:40] LABS: BNP,B-Type NATRIURETIC PEPTIDE 589.7 pg/mL (0-100)
--- NOTE | 2024-03-18 20:27 | HP.PCM.HOS_ITS ---
HPI - General General Date of Admission: 03/18/24 Date of Service: 03/18/24 Chief Complaint: Dyspnea, orthopnea, weight gain, increased LE edema. HPI Narrative The patient is an 89 y/o M w/ PMHx: BPH, CKD stage III unclear subtype, HTN, HLD, HFpEF, CAD, Carotid disease, Chronic anemia/Fe deficiency anemia, Hx Colon CA s/p partial colectomy, Hx Prostate CA, Thoracic AAA, Diabetes mellitus type II, Former tobacco use who presents to the [facility] ED on 03/18/24 with history of 1-2 weeks of progressively worsening dyspnea noted to be more severe with exertion with notable orthopnea, increased lower extremity swelling and weight gain. Workup in the ED included T97.6, heart rate 89, BP 164/88, respiratory rate 16, 94% on room air however patient did desaturate down to 86% on room air but improved to 95% on 2 L nasal cannula, most recent repeat vitals also included heart rate 48, BP 138/87, respiratory rate 18, CBC with WBC 4.3, hemoglobin 8.5, MCV 93.6, platelet 154 with lymphopenia, BMP with BUN/creatinine 35/1.64, GFR 42, troponin 39, BNP 589.7, chest x-ray with patchy opacities left lower lobe possibly edema, atelectasis or infection with marked cardiomegaly with trace left pleural effusion, EKG with new onset atrial fibrillation with bradycardia per Cardiology review. ED discussed case with Dr. Sinclair who recommended diuresis, hold BB and noted intention to evaluation in AM. In the ED patient ministered Lasix 40 mg IV x 1. PFSH Medical History Atherosclerosis of coronary artery of [place] heart without angina pectoris Carotid artery stenosis Chronic diastolic (congestive) heart failure Chronic kidney disease, stage III (moderate) Colon cancer, ascending DDD (degenerative disc disease) Dyslipidemia Dysphasia Essential (primary) hypertension Gout History of malignant neoplasm of colon Iron deficiency anemia Left bundle branch block Lumbar stenosis Non-rheumatic aortic stenosis Peripheral vascular disease Personal history of colonic polyps Prostate cancer Secondary pulmonary arterial hypertension Stool guaiac positive Thoracic aortic aneurysm without rupture Type II diabetes mellitus Home Medications hydralazine 25 mg tablet 50 mg PO 4X/DAY 05/14/16 [History Last Taken 03/18/24] pravastatin 40 mg tablet 40 mg PO QHS 05/14/16 [History Last Taken 03/17/24] probenecid 500 mg tablet 500 mg PO DAILY 05/14/16 [History Last Taken 03/18/24] aspirin 81 mg tablet,delayed release 81 mg PO DAILY@0800 07/16/16 [History Last Taken 03/18/24] cholecalciferol (vitamin D3) 25 mcg (1,000 unit) tablet 1,000 unit PO DAILY 07/16/16 [History Last Taken 03/18/24] cyanocobalamin (vitamin B-12) 1,000 mcg tablet 1,000 mcg PO DAILY 07/16/16 [History Last Taken 03/18/24] metformin 500 mg 24 hr tablet,extended release (gastric retention) 500 mg PO DAILY 07/16/16 [History Last Taken 03/18/24] losartan 100 mg tablet (Cozaar) 150 mg PO DAILY 06/25/19 [History Last Taken 0 03/18/24] sitagliptin phosphate 50 mg tablet 50 mg PO DAILY 06/25/19 [History Last Taken 03/18/24] tamsulosin 0.4 mg capsule (Flomax) 0.8 mg PO QHS 06/25/19 [History Last Taken 03/17/24] docusate sodium 100 mg capsule (Colace) 100 mg PO BID PRN constipation 09/11/19 [History Last Taken Unknown] ferrous sulfate 325 mg (65 mg iron) tablet (Feosol) 325 mg PO BID 09/11/19 [History Last Taken 03/18/24] folic acid 400 mcg tablet 800 mcg PO DAILY 09/11/19 [History Last Taken 03/18/24] insulin glargine 100 unit/mL (3 mL) subcutaneous pen 8 unit subcut QHS 09/11/19 [History Last Taken 03/17/24] furosemide 40 mg tablet (Lasix) 40 mg PO DAILY #90 tabs 09/16/19 [Rx Last Taken 03/18/24] metoprolol tartrate 25 mg tablet 12.5 mg PO BID 01/18/22 [History Last Taken 03/18/24] amlodipine 10 mg tablet See Rx Instructions .Route .COMPLEX 03/18/24 [History Last Taken 03/17/24] blood sugar diagnostic (True Metrix Glucose Test Strip) 03/18/24 [History Last Taken Unknown] gabapentin 400 mg capsule 400 mg PO QHS 03/18/24 [History Last Taken 03/18/24] latanoprost 0.005 % eye drops 1 drp ophthalmic (eye) QHS 03/18/24 [History Last Taken 03/17/24] magnesium chloride 71.5 mg (magnesium chloride) tablet,delayed release 71.5 mg PO BID 03/18/24 [History Last Taken 03/18/24] pen needle, diabetic 31 gauge x 3/16 (Droplet Pen Needle) 03/18/24 [History Last Taken Unknown] potassium chloride 20 mEq tablet,extended release(part/cryst) 20 meq PO DAILY 03/18/24 [History Last Taken 03/18/24] Allergy/AdvReac Type Severity Reaction Status Date / Time Milk Containing Products AdvReac NEEDS Verified 03/18/24 17:21 (Dairy) FOLLOW-UP [Milk Containing Products] quinapril [From Accupril] AdvReac Other Verified 03/18/24 17:21 Family History Mother Colon cancer Heart disease Hypertension CAD (coronary artery disease) Father Cancer prostate CVA (cerebral vascular accident) CAD (coronary artery disease) Brother CAD (coronary artery disease) CABG Brother CAD (coronary artery disease) CABG Surgical History H/O colectomy History of left heart catheterization (07/2001) S/P cataract extraction S/P colonoscopy Status post colectomy Social History household members: spouse Smoking Status: Former smoker how long ago did patient quit smokin years ago alcohol intake: never substance use type: does not use ROS ROS Narrative Admission Review of Systems: CONSTITUTIONAL: No weight loss, fever, chills, + weakness or fatigue. HEENT: Eyes: No visual loss, blurred vision, double vision or yellow sclerae. Ears, Nose, Throat: No hearing loss, sneezing, congestion, runny nose or sore throat. SKIN: No rash or itching, lesions, wounds except for + occasional staged ecchymoses, abrasion, notable bilateral lower extremity venous stasis disease. CARDIOVASCULAR: + Edema, weight gain, orthopnea. No chest pain, chest pressure or chest discomfort, palpitations, syncopal events. RESPIRATORY: + Shortness of breath which is worse with exertion. No marked cough or sputum, wheezing, hemoptysis. GASTROINTESTINAL: No anorexia, nausea, vomiting or diarrhea, abdominal pain, melena, BRBPR. GENITOURINARY: + Chronic urinary frequency with BPH. No dysuria, urgency or retention. NEUROLOGICAL: No headache, dizziness, syncope, paralysis, ataxia, numbness or tingling in the extremities, focal weakness, change in bowel or bladder control, seizure. MUSCULOSKELETAL: + muscle, back pain, joint pain or stiffness. HEMATOLOGIC: + Chronic anemia, easy bleeding/bruising. LYMPHATICS: No enlarged nodes. No history of splenectomy. PSYCHIATRIC: No history of depression or anxiety. ENDOCRINOLOGIC: No reports of sweating, cold or heat intolerance. No polyuria or polydipsia. ALLERGIES: No history of asthma, hives, eczema or rhinitis. Vital Signs Vital Signs Vital Signs: 03/18/24 16:50 03/18/24 17:21 03/18/24 18:16 Temperature 97.6 F L Temperature Source Temporal Pulse Rate 89 Respiratory Rate 16 Respiratory Effort Short of Breath Labored Respiratory Depth Deep Respiratory Pattern Tachypnea Blood Pressure 164/88 H Blood Pressure Mean 113 Pulse Ox 94 86 Oxygen Delivery Method Room Air Room Air Room Air Oxygen Flow Rate (L/min) 03/18/24 18:49 Temperature Temperature Source Pulse Rate 48 L Respiratory Rate 18 Respiratory Effort Respiratory Depth Respiratory Pattern Blood Pressure 138/87 H Blood Pressure Mean 104 Pulse Ox 95 Oxygen Delivery Method Nasal Cannula Oxygen Flow Rate (L/min) 2 Weight Weight: 195 lb 1.6 oz Body Mass Index (BMI) 26.4 Physical Exam Narrative Physical Examination: General: Awake, alert, oriented x 3 and cooperative, seated upright in ED bed, fatigued, no acute distress evident. Skin: Normal color, normal turgor, no icterus, no cyanosis except for noted bilateral lower extremity significant venous stasis skin changes, occasional staged ecchymoses, abrasion. HEENT: AT/NC, EOMI, PERRLA, MMM, no carotid bruits or JVD., + Lungs: Diminished, greater bases, left greater than right, mild rales bilateral bases, left greater than right, no marked rhonchi or wheezing, no evidence of respiratory distress. Heart: Irregular, bradycardic; no gallop, rub audible. Abdomen: Soft, NTTP, ND, mildly hyperactive BS, no appreciated HSM. Extremities: No cyanosis, no clubbing, see skin, pedal to distal knee 1-2+ pitting edema. Neurological: Patient awake, alert, oriented x 3, cognitive function intact; pupils equally reactive to light and accommodation, cranial nerves grossly normal, moving all 4 extremities, no focal deficits, strength moderately to severely globally decreased. Psychiatric: Affect appears flat, fatigued, no acute evidence of depressive or anxiety feelings. Results Lab / Micro Data 03/18/24 18:27 03/18/24 18:27 Labs: Laboratory Results - last 24 hr 03/18/24 18:27: WBC 4.3 L, RBC 2.99 L, Hgb 8.5 L, Hct 28.0 L, MCV 93.6, MCH 28.4, MCHC 30.4 L, RDW Std Deviation 56.8 H, RDW Coeff of Rachelle 16.5 H, Plt Count 154, MPV 9.9, Immature Gran % (Auto) 0.200, Neut % (Auto) 66.7, Lymph % (Auto) 16.9 L, [place] % (Auto) 14.1 H, Eos % (Auto) 1.2, Baso % (Auto) 0.9, Absolute Neuts (auto) 2.9, Absolute Lymphs (auto) 0.73 L, Nucleated RBC % 0, Sodium 137, Potassium 4.1, Chloride 106, Carbon Dioxide 29.0, Anion Gap 2 L, BUN 35 H, Creatinine 1.64 H, Estim Creat Clear Calc 33.52, Est GFR (MDRD) Af Amer 51 L, Est GFR (MDRD) Non-Af 42 L, BUN/Creatinine Ratio 21.3 H, Glucose 95, Calcium 8.7 , Troponin I High Sens 39, B-Natriuretic Peptide 589.7 H Imaging Radiology Impression Chest X-Ray 03/18/24 18:16 IMPRESSION: Patchy opacities in the left lower lobe may represent edema, atelectasis or infection. Marked cardiomegaly with trace left pleural effusion.. Electronically Signed: Iron Noble MD at 19:47 EDT , Assessment & Plan Assessment/Plan (1) CHF exacerbation: (2) Atrial fibrillation: PLAN: Plan The patient is an 89 y/o M w/ PMHx: BPH, CKD stage III unclear subtype, HTN, HLD, HFpEF, CAD, Carotid disease, Chronic anemia/Fe deficiency anemia, Hx Colon CA s/p partial colectomy, Hx Prostate CA, Thoracic AAA, Diabetes mellitus type II, Former tobacco use who presents to the [facility] ED on 03/18/24 with history of 1-2 weeks of progressively worsening dyspnea noted to be more severe with exertion with notable orthopnea, increased lower extremity swelling and weight gain. #1. Acute Hypoxia secondary to Acute Decompensated Diastolic CHF: ED evaluation with troponin 39, BNP 589.7, chest x-ray with patchy opacities left lower lobe possibly edema, atelectasis or infection with marked cardiomegaly with trace left pleural effusion, EKG with new onset atrial fibrillation with bradycardia per Cardiology review. Patient administered IV lasix in the ED, will admit to PCU, maintain on cardiac telemetry, obtain cardiac enzyme series, obtain serial EKGs, continue IV lasix diuresis, monitor I/Os, maintain on intake restriction, continue medical therapy except holding beta-lonny therapy given significant bradycardia with new onset A-fib as noted #2, obtain TSH and magnesium level. Most recent ECHO noted 07/23/18 with normal LV size, moderate LV hypertrophy, LV systolic function with EF 66?5%, RV normal size, RV systolic function normal, left atrial cavity mildly dilated, moderate aortic valve stenosis thus will request repeat echocardiogram. Cardiology consulted, pending. #2. Suspected Underlying Atrial Fibrillation, new onset with Bradycardia: EKG with new onset atrial fibrillation with bradycardia per Cardiology review. Will , maintain on telemetry, obtain cardiac enzyme serial set, obtain magnesium level, obtain ECHO, obtain TSH level. CHADs scoring appropriate for ant icoagulation start at this time, will start on therapeutic lovenox until Cardiology assessment and CM evaluation for cost of oral agents. Holding BB given bradycardia. Cardiology consulted, pending. #3. Acute Renal Insufficiency on Chronic Kidney Disease Stage III, unclear subtype versus progressing CKD stage III unclear subtype: Admission BUN/Cr 35/1.64, GFR 42, baseline renal function primarily since 2019 Cr 1.3, previous baseline GFR 50 range repeat BMP in AM to further elucidate especially given usage of IV Lasix given #1. #4. Chronic normocytic anemia/Fe deficiency anemia: Admission hemoglobin 8.5, MCV 93.6, baseline hemoglobin appears to vacillated but primarily seems to be 7- 10, most recently prior to this presentation remotely 01/18/2022 hemoglobin 9.6, will continue to trend CBC. Will continue iron supplementation. #5. Carotid disease: Will continue patient aspirin, statin, hypertensive regimen and diabetic regimen with adjustments as noted. #6. Thoracic AAA: Most recent noted imaging from 03/21/2016 [facility] with diffuse atherosclerotic degeneration of the t thoracoabdominal aorta, moderate calcific changes of the aortic leaflets, aortic root mildly prominent, 4 cm, ascending thoracic aorta measuring 4.7 cm with sinotubular junction intact, no significant dilation arch, descending or abdominal segments of the aorta, atherosclerotic changes most prominent in the abdomen level, mild prominent subclavian as well as common iliac arteries, moderate coronary arteries, moderate left atrial dilatation. #7. Nonobstructive CAD: Will continue aspirin, statin, losartan home regimen. Holding BB. #8. Diabetes mellitus type II with chronic neuropathy: Hold oral home regimen, continue home insulin regimen, ADA diet, accu checks w/ ISS, continue patient home gabapentin regimen. #9. Hypertension: Continue home regimen including losartan, hydralazine, amlodi pine, IV Lasix as noted, PRN hydralazine. Holding BB. #10. Hyperlipidemia: Continue home statin regimen. AM FLP. #11. History colon cancer: Status post partial colectomy, considered in remission, encourage continued outpatient follow-up as previously arranged. #12. History prostate cancer: Considered in remission, encourage outpatient follow-up. #13. Former tobacco use: Encourage continued tobacco cessation. #14. BPH: We will continue patient on Flomax regimen. #15. DVT prophylaxis: Lovenox as noted. #16. CODE status: Patient TRIP is his daughter meliza and living will is currently in place. Discussed CODE status at length including difference between FULL code, DNR-CCA and DNR-CC status. Following discussions about the differences in these status, requested Full Code status. Advanced Care Planning Face to Face Time: 16 minutes. Charges/Coding Visit Charges Inpatient E&M: 45599 Init Hosp L3 Procedures Hospitalists Procedures: 92927 Advncd Care Plan 30 Min
[2024-03-18 20:58] LABS: Magnesium 2.4 mg/dL (1.6-2.6)
--- NOTE | 2024-03-18 21:10 | ECHOD_ITS ---
Reason For Study: ATRIAL FIB-FLUTTER Procedure This was a 2D Doppler, Color Flow transthoracic echocardiogram. The study was technically difficult. Exam performed portable in patient room. Left Ventricle Normal LV size. The estimated ejection fraction is 25 %. Stage 3 diastolic dysfunction. There is severe global hypokinesis of the left ventricle. Right Ventricle Normal RV size. Normal systolic function. Atria The left atrium is severely enlarged. The right atrium is moderately enlarged. Tricuspid Valve Normal tricuspid valve. Moderate (2+) tricuspid valve insufficiency. Pulmonary artery systolic pressure is 60 mmHg. Moderate pulmonary hypertension. Aortic Valve Trisinus/trileaflet aortic valve. Mild focal aortic valve calcification. Peak aortic valve gradient 30 mmHg. Mean aortic valve gradient 15 mmHg. Mild (1+) aortic valve insufficiency. Great Vessels Normal aortic root. The pulmonary artery is normal size. Normal inferior vena cava. Pericardium/Pleural Small pericardial effusion. MMode/2D Measurements & Calculations LVIDd: 6.3 cm IVSd: 1.3 cm LVOT diam: 2.0 cm LVIDs: 5.6 cm LVPWd: 1.1 cm LVOT area: 3.1 cm2 RVDd: 3.8 cm FS: 10.9 % Ao root diam: 3.4 cm LAV(MOD-bp): 133.4 ml LA dimension: 3.6 cm LVAd ap4: 58.4 cm2 LAV(MOD-bp) Indexed: 63.0 ml/m2 LVLd ap4: 10.2 cm LAV(MOD-sp2): 131.8 ml EDV(MOD-sp4): 276.9 ml LAV(MOD-sp4): 129.7 ml EDV(sp4-el): 282.6 ml LVAs ap4: 46.6 cm2 LVLs ap4: 9.6 cm ESV(MOD-sp4): 190.4 ml ESV(sp4-el): 191.6 ml EF(MOD-sp4): 31.3 % EF(sp4-el): 32.2 % SV(MOD-sp4): 86.5 ml SV(sp4-el): 91.0 ml LA A4 area: 35.2 cm2 TAPSE: 1.8 cm RA A4 area: 26.2 cm2 Time Measurements MV dec time: 0.26 sec Doppler Measurements & Calculations MV E max yessica: 124.5 cm/sec Ao V2 max: 272.9 cm/sec AI max yessica: 371.8 cm/sec MV A max yessica: 58.1 cm/sec Ao max P.8 mmHg AI max P.3 mmHg MV E/A: 2.1 Ao V2 mean: 179.9 cm/sec Ao mean P.1 mmHg AI dec slope: 134.1 cm/sec2 Ao V2 VTI: 63.1 cm AI P1/2t: 812.4 msec AV (velocity ratio): 0.41 SEBASTIÁN(I,D): 1.3 cm2 SEBASTIÁN(V,D): 1.2 cm2 LV V1 max: 105.2 cm/sec SV(LVOT): 81.1 ml PA V2 max: 116.8 cm/sec LV V1 max P.4 mmHg LV V1 mean P.4 mmHg LV V1 mean: 71.9 cm/sec LV V1 VTI: 26.1 cm TR max yessica: 373.7 cm/sec TR max P.9 mmHg ECHO/Echo Complete Interpretation Summary Normal LV size. The estimated ejection fraction is 25 %. There is severe global hypokinesis of the left ventricle. Stage 3 diastolic dysfunction. Mild focal aortic valve calcification. Mean aortic valve gradient 15 mmHg. Mild (1+) aortic valve insufficiency. Moderate pulmonary hypertension. Ordering Physician: Ines Meier Referring Physician: TEOFILO SUAREZ Performed By: Shana Win RDCS
[2024-03-18] MEDS: Furosemide 40 MG/4 ML Vial IV (22:04)
[2024-03-18] MEDS: Gabapentin 400 MG Capsule PO (22:04)
[2024-03-18] MEDS: 0.9% Saline Lock 10 ML Syringe IV (22:04)
[2024-03-18] MEDS: Pravastatin 40 MG Tablet PO (22:43)
[2024-03-18] MEDS: Latanoprost 0.005% 1 Bottle 1 DRP OPHTHALMIC (22:43)
[2024-03-18] MEDS: Senna/Docusate Sodium 1 Tablet 2 TABLET PO (22:44)
[2024-03-18] MEDS: Tamsulosin HCl 0.4 MG Capsule 0.8 MG PO (22:44)
[2024-03-18] MEDS: amLODIPine 10 MG Tablet PO (22:44)
[2024-03-18] MEDS: Magnesium Chloride 64 MG Delay Rel.Tablet PO (22:44)
[2024-03-18] MEDS: hydrALAZINE 25 MG Tablet 50 MG PO (22:44)
[2024-03-18] MEDS: Enoxaparin 100 MG/ML Syringe 90 MG SC (22:44)
[2024-03-18 22:46] LABS: Troponin-I HS 43 pg/mL (3.0-78.0)
[2024-03-19] VITALS (14 sets, daily range): BP systolic 135–147; BP diastolic 61–71; PULSE 45–58; RESP 18; TEMP 36.3–36.7; O2SAT 94–96; BMI 26.0
[2024-03-19 01:13] LABS: Bedside Glucose 93 mg/dL (74-106)
[2024-03-19 02:19] LABS: Troponin-I HS 50 pg/mL (3.0-78.0)
[2024-03-19 06:56] LABS: Bedside Glucose 88 mg/dL (74-106)
[2024-03-19 07:21] LABS: Absolute Lymphocyte Count 0.92 X10^3/uL (0.83-4.51); Absolute Neutrophil Count 2.6 X10^3/uL (2.0-7.7); Basophil# 0.05 X10^3/uL; Basophil% 1.2 % (0-1); Eosinophil# 0.19 X10^3/uL; Eosinophils% 4.4 % (0-5); Hematocrit 28.3 % (40-54); Hemoglobin 8.4 g/dL (13.0-16.5); Lymphocyte # 0.92 X10^3/ul (0.83-4.51); Lymphocyte % 21.2 % (19-41); Mean Corp Hgb Conc 29.7 g/dL (32-36); Mean Corpuscular Hgb 28.2 pg (27.0-32.0); Monocyte# 0.62 X10^3/uL; Monocyte% 14.3 % (0-10); NRBC Flagged by Analyzer 0 % (0-5); Neutrophil # 2.55 X10^3/uL (2.7-7.7); Neutrophil % 58.7 % (47-70); Platelet Count 149 K/mm3 (150-450); RBC Distribution Width CV 16.6 % (11.6-14.6); Red Blood Count 2.98 M/mm3 (4.6-6.2); White Blood Count 4.3 K/mm3 (4.4-11.0)
[2024-03-19 07:56] LABS: ALB/GLOB Ratio 0.5 RATIO (0.9-2.4); AST(SGOT) 28 U/L (15-37); Alanine Aminotransfer ALT/SGPT 31 U/L (16-61); Albumin, Serum 2.6 g/dL (3.2-5.0); Alkaline Phosphatase 40 U/L (45-117); Anion Gap 6 (5-15); BUN 30 mg/dL (7-18); BUN/Creat Ratio 20.3 RATIO (10-20); Calcium,Total 8.6 mg/dL (8.5-10.1); Chloride 104 mmol/L (98-107); Cholesterol 82 mg/dL (200); Creatinine, Serum 1.48 mg/dL (0.70-1.30); EST Glomerular Filtration Rate 48 mL/min (>60); Est Glom Filt Rate - Afr Amer 58 mL/min (>60); Estimated Creatinine Clearance 38.24 ml/min; Globulin 4.9 g/dL (2.2-4.2); Glucose 89 mg/dL (74-106); High Density Lipoprotein 28 mg/dL; Potassium 3.8 mmol/L (3.5-5.1); Protein, Total 7.5 g/dL (6.4-8.2); Sodium Level 138 mmol/L (136-145); Thyroid Stim Hormone (TSH) 2.13 uIU/mL (0.358-3.74); Triglycerides 71 mg/dL; Very Low Density Lipoprotein 14 mg/dL (5-40)
--- NOTE | 2024-03-19 09:39 | PN.HOSP_ITS ---
Reason for Visit Reason for Visit: Diagnoses Unspecified atrial fibrillation (03/18/24) Heart failure, unspecified (03/18/24) Subjective Subjective Patient is an 89-year-old gentleman with multiple comorbidities admitted with progressive shortness of breath, increasing weight gain and bilateral lower extremity swelling diagnosis of acute congestive heart failure made admitted to a monitored bed for further management Objective Data Objective Data Vital Signs: Vital Signs Temp Pulse Resp BP Pulse Ox O2 Del Method O2 Flow Rate 98.0 F 46 L 18 135/66 H 96 Nasal Cannula 2 03/19/24 07:47 03/19/24 07:47 03/19/24 07:47 03/19/24 07:47 03/19/24 08:05 03/19/24 08:05 03/19/24 08:05 Oxygen Flow Rate (L/min) 2 Oxygen Delivery Method Nasal Cannula Weight: 89.6 kg Body Mass Index (BMI) 26.0 Intake & Output: Intake and Output for Last 24 Hours 03/17/24 03/18/24 03/19/24 23:59 23:59 23:59 Output Total 800 / 800 1050 / 1050 Balance -800 / -800 -1050 / -1050 Lab / Micro Data 03/19/24 06:50 03/19/24 06:50 Labs: Laboratory Results - last 24 hr 03/18/24 18:21: Magnesium 2.4 03/18/24 18:27: WBC 4.3 L, RBC 2.99 L, Hgb 8.5 L, Hct 28.0 L, MCV 93.6, MCH 28.4, MCHC 30.4 L, RDW Std Deviation 56.8 H, RDW Coeff of Rachelle 16.5 H, Plt Count 154, MPV 9.9, Immature Gran % (Auto) 0.200, Neut % (Auto) 66.7, Lymph % (Auto) 16.9 L, [place] % (Auto) 14.1 H, Eos % (Auto) 1.2, Baso % (Auto) 0.9, Absolute Neuts (auto) 2.9, Absolute Lymphs (auto) 0.73 L, Nucleated RBC % 0, Sodium 137, Potassium 4.1, Chloride 106, Carbon Dioxide 29.0, Anion Gap 2 L, BUN 35 H, Creatinine 1.64 H, Estim Creat Clear Calc 33.52, Est GFR (MDRD) Af Amer 51 L, Est GFR (MDRD) Non-Af 42 L, BUN/Creatinine Ratio 21.3 H, Glucose 95, Calcium 8.7, Troponin I High Sens 39, B-Natriuretic Peptide 589.7 H 03/18/24 22:02: POC Glucose 93 03/18/24 22:08: Troponin I High Sens 43 03/19/24 01:52: Troponin I High Sens 50 03/19/24 06:36: POC Glucose 88 03/19/24 06:50: WBC 4.3 L, RBC 2.98 L, Hgb 8.4 L, Hct 28.3 L, MCV 95.0 H, MCH 28.2, MCHC 29.7 L, RDW Std Deviation 57.0 H, RDW Coeff of Rachelle 16.6 H, Plt Count 149 L, MPV 10.0, Immature Gran % (Auto) 0.200, Neut % (Auto) 58.7, Lymph % (Auto) 21.2, [place] % (Auto) 14.3 H, Eos % (Auto) 4.4, Baso % (Auto) 1.2 H, Absolute Neuts (auto) 2.6, Absolute Lymphs (auto) 0.92, Nucleated RBC % 0, Sodium 138, Potassium 3.8, Chloride 104, Carbon Dioxide 28.0, Anion Gap 6, BUN 30 H, Creatinine 1.48 H, Estim Creat Clear Calc 38.24, Est GFR (MDRD) Af Amer 58 L, Est GFR (MDRD) Non-Af 48 L, BUN/Creatinine Ratio 20.3 H, Glucose 89, Calcium 8.6, Total Bilirubin 0.50, AST 28, ALT 31, Alkaline Phosphatase 40 L, Total Protein 7.5, Albumin 2.6 L, Globulin 4.9 H, Albumin/Globulin Ratio 0.5 L, Triglycerides 71, Cholesterol 82, LDL Cholesterol 40, VLDL Cholesterol 14, HDL Cholesterol 28 L, TSH 2.13 Micro: Microbiology 03/18/24 22:15 Mucosa - Nose SARS-CoV-2, Influenza & RSV (PCR) - Final Radiography Diagnostic Testing: Radiology Impression Chest X-Ray 03/18/24 18:16 IMPRESSION: Patchy opacities in the left lower lobe may represent edema, atelectasis or infection. Marked cardiomegaly with trace left pleural effusion.. Electronically Signed: Iron Noble MD at 19:47 EDT , Physical Exam Narrative GENERAL: cooperative HEENT: Atraumatic; normocephalic EYES; Anicteric, Normal Conjunctiva NECK; supple, normal thyroid, RESPIRATORY: Diminished to auscultation CARDIOVASCULAR: Regular S1 S2, systolic murmur GI: soft, normoactive bowel sounds, : No Renal angle tenderness; EXTREMITIES: edema, no clubbing, MUSCULOSKELETAL: no muscle wasting NEURO: Awake; no lateralizing signs. SKIN: No Rash PSYCH; Flat affect Assessment & Plan Assessment/Plan (1) CHF exacerbation: (2) Atrial fibrillation: PLAN: Plan Patient is an 89-year-old gentleman with multiple comorbidities admitted with progressive shortness of breath, increasing weight gain and bilateral lower extremity swelling diagnosis of acute congestive heart failure made admitted to a monitored bed for further management 1. Acute on chronic congestive heart failure with preserved ejection fraction ? Patient echo from 07/23/2018 demonstrated EF of 65%. Patient admitted to monitored bed placed on strict input and output, daily weight, fluid restriction low-sodium diet as well as diuretic therapy repeat echo ordered for subsequent e valuation 2. Paroxysmal atrial fibrillation with slow ventricular response ? Patient is on beta-blockers held given his bradycardia. Patient was previously on systemic anticoagulation discontinued for unknown reasons 3. BPH with lower urinary obstructive symptoms - Patient treated with tamsulosin 4. History of prostate CA ? Currently remission 5. Hypertension - Blood pressure controlled, home medications except for beta-lonny given his bradycardia, continued 6. Dyslipidemia -Patient is on statin therapy, continued at home dose 7. Diabetes mellitus type II -patient's oral hypoglycemics held. Placed on long acting insulin, Accu-Cheks a.c. and at bedtime and covered with sliding scale insulin 8. History of colon CA ? Status post partial colectomy currently remains in remission 9. Chronic kidney disease stage III ? Kidney function at baseline monitoring with daily BMP 10. AAA ? Currently being monitored by primary care physician 11. DVT prophylaxis ? Started on therapeutic Lovenox Time spent in the patient's overall evaluation,decision-making process, review of diagnostic data, adjustment of management, discussion with other providers, nursing nursing and ancillary staff involved in patient's care documentation, 52 Minutes Charges/Coding Visit Charges Inpatient E&M: 21010 Subs Hosp L3
[2024-03-19] MEDS: hydrALAZINE 25 MG Tablet 50 MG PO ×4 (09:49→22:15)
[2024-03-19] MEDS: Losartan Potassium 100 MG Tablet 150 MG PO (09:51)
[2024-03-19] MEDS: Aspirin E.C. 81 MG Tablet PO (09:51)
[2024-03-19] MEDS: Potassium Chloride Oral Tablet 20 MEQ PO (09:51)
[2024-03-19] MEDS: Magnesium Chloride 64 MG Delay Rel.Tablet PO ×2 (09:51→22:14)
[2024-03-19] MEDS: Ferrous Sulfate 325 MG Tablet PO ×2 (09:51→17:40)
[2024-03-19] MEDS: Enoxaparin 100 MG/ML Syringe 90 MG SC ×2 (09:52→22:17)
[2024-03-19] MEDS: Folic Acid 1 MG Tablet PO (09:52)
[2024-03-19] MEDS: Menthol/Lanolin/Calamine/Znox 113 GM Tube 1 APPLIC TOPICAL (09:52)
[2024-03-19] MEDS: Furosemide 40 MG/4 ML Vial IV ×2 (09:52→17:41)
[2024-03-19] MEDS: 0.9% Saline Lock 10 ML Syringe IV ×2 (09:57→17:41)
--- NOTE | 2024-03-19 10:30 | CASEMGMT ---
RN CM Face to Face with patient for initial transition planning/care coordination assessment. RN CM introduced self and role at [facility]. Patient lying in bed, alert and oriented, , sister, and children at bedside. Patient willing to participate in assessment and is able to answer all questions appropriately. Care providers, pharmacy, and demographics verified. PCP: Mike Specialists: Bear, correctional case manager; [facility], cardiology Preferred Pharmacy: [facility] Insurance: [employer] Prescription Benefit: yes Living Will/HPOA: yes, daughter Kaylee Gutierrez LNOK: , children Living Arrangements: Patient lives with in a single story home with 3 steps and railing to enter the home or stair lift from basement. Patient states he was independent at home. Transportation: self, , children DME/HHC: Patient has raised toilet, cane, walker, grab bars and glucometer at home. No previous HHC or SNF. Patient wishes to discharge home, will monitor progress with therapy. Patient requiring assistance from staff, discussed possible HHC vs SNF. Patient states he has no further needs or concerns at this time. CM to follow for discharge planning needs that may arise. Disposition Plan: TBD, anticipate HHC vs SNF pending progress with therapy. Darshana AMAYA, RN, CM
[2024-03-19 11:47] LABS: Bedside Glucose 122 mg/dL (74-106)
--- NOTE | 2024-03-19 15:56 | PCM.CONS.C ---
Assessment & Plan Assessment/Plan (1) CHF exacerbation: PLAN: Patient presents with an exacerbation of congestive heart failure. The exact etiology is not clear at this particular time it could be from the atrial fibrillation with a slow ventricular response rate. My recommendation will be to continue with intravenous diuresis, evaluate his ejection fraction which has been done with his echocardiogram demonstrating a significant decline in his EF to approximately 25% which appears to be global. Will recommend to be placed on guideline directed medical therapy. (2) Atrial fibrillation: PLAN: He does have atrial fibrillation with a slow ventricular response rate. I will recommend we discontinue the beta-lonny at this time and see what happens to his heart rate. 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 I will discuss this further with the family. (3) Essential (primary) hypertension: PLAN: His blood pressure does not appear to be very well-controlled at this time we will try and optimize his medical blood pressure therapy. (4) Left bundle branch block: PLAN: He does have a left bundle branch block which appears to be chronic at this time. HPI Consult Data Date of Consult: 03/19/24 HPI Narrative HPI Narrative: JASON STANLEY, is a 89 M who presents with progressive shortness of breath over the last few days. He is also complained of pedal edema. He also had some orthopnea but no paroxysmal nocturnal dyspnea or cough. He does have a history of hypertension dilated aortic root and unclear history of coronary artery disease. He has not seen a ground crew lines person recently. He presented to the emergency room he was noted to be in atrial fibrillation with a slow ventricular response rate and a left bundle branch block. Cardiology was consulted admission was requested and he was diuresed. This morning he says that he feels much better. He had no neck arm or jaw discomfort suggest angina no dizziness or diaphoresis no near syncope or syncope. His EKG demonstrated atrial fibrillation with a slow ventricular response rate of 39 bpm. [facility] Medical History Atherosclerosis of coronary artery of [place] heart without angina pectoris Carotid artery stenosis Chronic diastolic (congestive) heart failure Chronic kidney disease, stage III (moderate) Colon cancer, ascending DDD (degenerative disc disease) Dyslipidemia Dysphasia Essential (primary) hypertension Gout History of malignant neoplasm of colon Iron deficiency anemia Left bundle branch block Lumbar stenosis Non-rheumatic aortic stenosis Peripheral vascular disease Personal history of colonic polyps Prostate cancer Secondary pulmonary arterial hypertension Stool guaiac positive Thoracic aortic aneurysm without rupture Type II diabetes mellitus Home Medications hydralazine 25 mg tablet 50 mg PO 4X/DAY 05/14/16 [History Last Taken 03/18/24] pravastatin 40 mg tablet 40 mg PO QHS 05/14/16 [History Last Taken 03/17/24] probenecid 500 mg tablet 500 mg PO DAILY 05/14/16 [History Last Taken 03/18/24] aspirin 81 mg tablet,delayed release 81 mg PO DAILY@0800 07/16/16 [History Last Taken 03/18/24] cholecalciferol (vitamin D3) 25 mcg (1,000 unit) tablet 1,000 unit PO DAILY 07/16/16 [History Last Taken 03/18/24] cyanocobalamin (vitamin B-12) 1,000 mcg tablet 1,000 mcg PO DAILY 07/16/16 [History Last Taken 03/18/24] metformin 500 mg 24 hr tablet,extended release (gastric retention) 500 mg PO DAILY 07/16/16 [History Last Taken 03/18/24] losartan 100 mg tablet (Cozaar) 150 mg PO DAILY 06/25/19 [History Last Taken 03/18/24] sitagliptin phosphate 50 mg tablet 50 mg PO DAILY 06/25/19 [History Last Taken 03/18/24] tamsulosin 0.4 mg capsule (Flomax) 0.8 mg PO QHS 06/25/19 [History Last Taken 03/17/24] docusate sodium 100 mg capsule (Colace) 100 mg PO BID PRN constipation 09/11/19 [History Last Taken Unknown] ferrous sulfate 325 mg (65 mg iron) tablet (Feosol) 325 mg PO BID 09/11/19 [History Last Taken 03/18/24] folic acid 400 mcg tablet 800 mcg PO DAILY 09/11/19 [History Last Taken 03/18/24] insulin glargine 100 unit/mL (3 mL) subcutaneous pen 8 unit subcut QHS 09/11/19 [History Last Taken 03/17/24] furosemide 40 mg tablet (Lasix) 40 mg PO DAILY #90 tabs 09/16/19 [Rx Last Taken 03/18/24] metoprolol tartrate 25 mg tablet 12.5 mg PO BID 01/18/22 [History Last Taken 03/18/24] amlodipine 10 mg tablet See Rx Instructions .Route .COMPLEX 03/18/24 [History Last Taken 03/17/24] blood sugar diagnostic (True Metrix Glucose Test Strip) 03/18/24 [History Last Taken Unknown] gabapentin 400 mg capsule 400 mg PO QHS 03/18/24 [History Last Taken 03/18/24] latanoprost 0.005 % eye drops 1 drp ophthalmic (eye) QHS 03/18/24 [History Last Taken 03/17/24] magnesium chloride 71.5 mg (magnesium chloride) tablet,delayed release 71.5 mg PO BID 03/18/24 [History Last Taken 03/18/24] pen needle, diabetic 31 gauge x 3/16 (Droplet Pen Needle) 03/18/24 [History Last Taken Unknown] potassium chloride 20 mEq tablet,extended release(part/cryst) 20 meq PO DAILY 03/18/24 [History Last Taken 03/18/24] Allergy/AdvReac Type Severity Reaction Status Date / Time Milk Containing Products AdvReac NEEDS Verified 03/18/24 17:21 (Dairy) FOLLOW-UP [Milk Containing Products] quinapril [From Accupril] AdvReac Other Verified 03/18/24 17:21 Family History Mother Colon cancer Heart disease Hypertension CAD (coronary artery disease) Father Cancer prostate CVA (cerebral vascular accident) CAD (coronary artery disease) Brother CAD (coronary artery disease) CABG Brother CAD (coronary artery disease) CABG Surgical History H/O colectomy History of left heart catheterization (07/2001) S/P cataract extraction S/P colonoscopy Status post colectomy Social History household members: spouse Smoking Status: Former smoker how long ago did patient quit smokin years ago alcohol intake: never substance use type: does not use Physical Exam Const alert, oriented x3 and no apparent distress General Appearance: cooperative HEENT hearing grossly normal bilaterally Head and Scalp: atraumatic Eyes EOMs intact bilaterally Neck General: normal visual inspection Chest inspection of chest normal and palpation of chest normal Resp normal respiratory effort Auscultation: clear to auscultation bilaterally Cardio S1 normal heart sound and S2 normal heart sound Jugular Venous Distention: JVD Rhythm: abnormal rhythm GI normal to inspection, nondistended, normoactive bowel sounds Extremity normal capillary refill and no pedal edema Peripheral Pulses: Yes pulses 2+ throughout and femoral pulses present Skin no rashes or lesions noted Neuro oriented x3 and CN's II-XII intact bilaterally Psych Appearance: grossly normal and appropriate Risk Stratification Risk Stratification Applicable: No Objective Data Vital Signs: Vital Signs Temp Pulse Resp BP Pulse Ox O2 Del Method O2 Flow Rate 98.0 F 46 L 18 135/66 H 96 Nasal Cannula 2 03/19/24 13:40 03/19/24 13:40 03/19/24 13:40 03/19/24 13:40 03/19/24 13:40 03/19/24 13:40 03/19/24 13:40 Oxygen Flow Rate (L/min) 2 Oxygen Delivery Method Nasal Cannula Weight: 197 lb 8.547 oz Body Mass Index (BMI) 26.0 Intake & Output: Intake and Output for Last 24 Hours 03/17/24 03/18/24 03/19/24 23:59 23:59 23:59 Intake Total 240 / 240 Output Total 800 / 800 1250 / 1250 Balance -800 / -800 -1010 / -1010 Lab / Micro Data 03/19/24 06:50 03/19/24 06:50 Labs: Laboratory Results - last 24 hr 03/18/24 18:21: Magnesium 2.4 03/18/24 18:27: WBC 4.3 L, RBC 2.99 L, Hgb 8.5 L, Hct 28.0 L, MCV 93.6, MCH 28.4, MCHC 30.4 L, RDW Std Deviation 56.8 H, RDW Coeff of Rachelle 16.5 H, Plt Count 154, MPV 9.9, Immature Gran % (Auto) 0.200, Neut % (Auto) 66.7, Lymph % (Auto) 16.9 L, Whitfield % (Auto) 14.1 H, Eos % (Auto) 1.2, Baso % (Auto) 0.9, Absolute Neuts (auto) 2.9, Absolute Lymphs (auto) 0.73 L, Nucleated RBC % 0, Sodium 137, Potassium 4.1, Chloride 106, Carbon Dioxide 29.0, Anion Gap 2 L, BUN 35 H, Creatinine 1.64 H, Estim Creat Clear Calc 33.52, Est GFR (MDRD) Af Amer 51 L, Est GFR (MDRD) Non-Af 42 L, BUN/Creatinine Ratio 21.3 H, Glucose 95, Calcium 8.7, Troponin I High Sens 39, B-Natriuretic Peptide 589.7 H 03/18/24 22:02: POC Glucose 93 03/18/24 22:08: Troponin I High Sens 43 03/19/24 01:52: Troponin I High Sens 50 03/19/24 06:36: POC Glucose 88 03/19/24 06:50: WBC 4.3 L, RBC 2.98 L, Hgb 8.4 L, Hct 28.3 L, MCV 95.0 H, MCH 28.2, MCHC 29.7 L, RDW Std Deviation 57.0 H, RDW Coeff of Rachelle 16.6 H, Plt Count 149 L, MPV 10.0, Immature Gran % (Auto) 0.200, Neut % (Auto) 58.7, Lymph % (Auto) 21.2, Whitfield % (Auto) 14.3 H, Eos % (Auto) 4.4, Baso % (Auto) 1.2 H, Absolute Neuts (auto) 2.6, Absolute Lymphs (auto) 0.92, Nucleated RBC % 0, Sodium 138, Potassium 3.8, Chloride 104, Carbon Dioxide 28.0, Anion Gap 6, BUN 30 H, Creatinine 1.48 H, Estim Creat Clear Calc 38.24, Est GFR (MDRD) Af Amer 58 L, Est GFR (MDRD) Non-Af 48 L, BUN/Creatinine Ratio 20.3 H, Glucose 89, Calcium 8.6, Total Bilirubin 0.50, AST 28, ALT 31, Alkaline Phosphatase 40 L, Total Protein 7.5, Albumin 2.6 L, Globulin 4.9 H, Albumin/Globulin Ratio 0.5 L, Triglycerides 71, Cholesterol 82, LDL Cholesterol 40, VLDL Cholesterol 14, HDL Cholesterol 28 L, TSH 2.13 03/19/24 11:26: POC Glucose 122 H Micro: Microbiology 03/18/24 22:15 Mucosa - Nose SARS-CoV-2, Influenza & RSV (PCR) - Final Cardiology Labs/Tests 03/18/24 18:21: Magnesium 2.4 03/18/24 18:27: WBC 4.3 L, RBC 2.99 L, Hgb 8.5 L, Hct 28.0 L, MCV 93.6, MCH 28.4, MCHC 30.4 L, Plt Count 154, MPV 9.9, Immature Gran % (Auto) 0.200, Neut % (Auto) 66.7, Lymph % (Auto) 16.9 L, Whitfield % (Auto) 14.1 H, Eos % (Auto) 1.2, Baso % (Auto) 0.9, Absolute Neuts (auto) 2.9, Nucleated RBC % 0, Sodium 137, Potassium 4.1, Chloride 106, Carbon Dioxide 29.0, Anion Gap 2 L, BUN 35 H, Creatinine 1.64 H, Est GFR (MDRD) Af Amer 51 L, Est GFR (MDRD) Non-Af 42 L, BUN/Creatinine Ratio 21.3 H, Glucose 95, Calcium 8.7, B-Natriuretic Peptide 589.7 H 03/19/24 06:50: WBC 4.3 L, RBC 2.98 L, Hgb 8.4 L, Hct 28.3 L, MCV 95.0 H, MCH 28.2, MCHC 29.7 L, Plt Count 149 L, MPV 10.0, Immature Gran % (Auto) 0.200, Neut % (Auto) 58.7, Lymph % (Auto) 21.2, Whitfield % (Auto) 14.3 H, Eos % (Auto) 4.4, Baso % (Auto) 1.2 H, Absolute Neuts (auto) 2.6, Nucleated RBC % 0, Sodium 138, Potassium 3.8, Chloride 104, Carbon Dioxide 28.0, Anion Gap 6, BUN 30 H, Creatinine 1.48 H, Est GFR (MDRD) Af Amer 58 L, Est GFR (MDRD) Non-Af 48 L, BUN/Creatinine Ratio 20.3 H, Glucose 89, Calcium 8.6, Total Bilirubin 0.50, Triglycerides 71, Cholesterol 82, LDL Cholesterol 40, VLDL Cholesterol 14, HDL Cholesterol 28 L Rhythm: EKG: ECHO: Stress Test: Cardiac Cath: PCI: CT Surgery: Holter monitor: EPS: PPM: CXR: Chest CT Scan: Radiography Diagnostic Testing: Radiology Impression Chest X-Ray 03/18/24 18:16 IMPRESSION: Patchy opacities in the left lower lobe may represent edema, atelectasis or infection. Marked cardiomegaly with trace left pleural effusion.. Electronically Signed: Iron Noble MD at 19:47 EDT , Echocardiogram 03/18/24 21:10 Interpretation Summary Normal LV size. The estimated ejection fraction is 25 %. There is severe global hypokinesis of the left ventricle. Stage 3 diastolic dysfunction. Mild focal aortic valve calcification. Mean aortic valve gradient 15 mmHg. Mild (1+) aortic valve insufficiency. Moderate pulmonary hypertension. Ordering Physician: Ines Meier Referring Physician: TEOFILO SUAREZ Performed By: Shana Win RDCS
[2024-03-19 17:23] LABS: Bedside Glucose 164 mg/dL (74-106)
[2024-03-19] MEDS: Insulin Lispro 100 UNIT/ML INSULN.PEN SC ×2 (17:40→22:18)
[2024-03-19] MEDS: Gabapentin 400 MG Capsule PO (22:14)
[2024-03-19] MEDS: Pravastatin 40 MG Tablet PO (22:14)
[2024-03-19] MEDS: Tamsulosin HCl 0.4 MG Capsule 0.8 MG PO (22:14)
[2024-03-19] MEDS: amLODIPine 10 MG Tablet PO (22:16)
[2024-03-19] MEDS: Insulin Glargine-YFGN 100 UNIT/ML Pen 8 UNIT SC (22:17)
[2024-03-19] MEDS: Latanoprost 0.005% 1 Bottle 1 DRP OPHTHALMIC (22:24)
[2024-03-19 22:43] LABS: Bedside Glucose 163 mg/dL (74-106)
[2024-03-20] VITALS (8 sets, daily range): BP systolic 138–144; BP diastolic 61–67; PULSE 47–61; RESP 18; TEMP 36.2–36.6; O2SAT 90–98; BMI 26.0; BMI 25.1
[2024-03-20 06:29] LABS: Absolute Lymphocyte Count 0.76 X10^3/uL (0.83-4.51); Absolute Neutrophil Count 2.7 X10^3/uL (2.0-7.7); Basophil# 0.06 X10^3/uL; Basophil% 1.4 % (0-1); Eosinophil# 0.14 X10^3/uL; Eosinophils% 3.3 % (0-5); Hematocrit 29.3 % (40-54); Hemoglobin 8.6 g/dL (13.0-16.5); Lymphocyte # 0.76 X10^3/ul (0.83-4.51); Mean Corp Hgb Conc 29.4 g/dL (32-36); Mean Corpuscular Hgb 28.2 pg (27.0-32.0); Mean Corpuscular Volume 96.1 fL (80-94); Mean Platelet Vol. 10.4 fl (6.2-12.0); Monocyte# 0.56 X10^3/uL; Monocyte% 13.3 % (0-10); NRBC Flagged by Analyzer 0 % (0-5); Neutrophil # 2.69 X10^3/uL (2.7-7.7); Neutrophil % 63.8 % (47-70); Platelet Count 175 K/mm3 (150-450); RBC Distribution Width CV 16.7 % (11.6-14.6); RBC Distribution Width SD 58.4 fl (35.1-43.9); Red Blood Count 3.05 M/mm3 (4.6-6.2); White Blood Count 4.2 K/mm3 (4.4-11.0)
[2024-03-20 06:50] LABS: Bedside Glucose 114 mg/dL (74-106)
--- NOTE | 2024-03-20 07:24 | PCM.PN.HOSP ---
Reason for Visit Reason for Visit: Diagnoses Unspecified atrial fibrillation (03/18/24) Heart failure, unspecified (03/18/24) Subjective Subjective Patient seen still remains significantly dyspneic at rest. Objective Data Objective Data Vital Signs: Vital Signs Temp Pulse Resp BP Pulse Ox O2 Del Method O2 Flow Rate 97.3 F L 61 18 139/64 H 92 Room Air 2 03/20/24 04:15 03/20/24 04:15 03/20/24 04:15 03/20/24 04:15 03/20/24 04:15 03/20/24 04:24 03/20/24 04:15 Oxygen Flow Rate (L/min) 2 Oxygen Delivery Method Room Air Weight: 86.3 kg Body Mass Index (BMI) 25.1 Intake & Output: Intake and Output for Last 24 Hours 03/18/24 03/19/24 03/20/24 23:59 23:59 23:59 Intake Total 600 / 600 120 / 120 Output Total 800 / 800 1250 / 1250 200 / 200 Balance -800 / -800 -650 / -650 -80 / -80 Lab / Micro Data 03/20/24 05:40 03/20/24 05:40 Labs: Laboratory Results - last 24 hr 03/19/24 06:50: Sodium 138, Potassium 3.8, Chloride 104, Carbon Dioxide 28.0, Anion Gap 6, BUN 30 H, Creatinine 1.48 H, Estim Creat Clear Calc 38.24, Est GFR (MDRD) Af Amer 58 L, Est GFR (MDRD) Non-Af 48 L, BUN/Creatinine Ratio 20.3 H, Glucose 89, Calcium 8.6, Total Bilirubin 0.50, AST 28, ALT 31, Alkaline Phosphatase 40 L, Total Protein 7.5, Albumin 2.6 L, Globulin 4.9 H, Albumin/Globulin Ratio 0.5 L, Triglycerides 71, Cholesterol 82, LDL Cholesterol 40, VLDL Cholesterol 14, HDL Cholesterol 28 L, TSH 2.13 03/19/24 11:26: POC Glucose 122 H 03/19/24 16:14: POC Glucose 164 H 03/19/24 22:06: POC Glucose 163 H 03/20/24 05:40: WBC 4.2 L, RBC 3.05 L, Hgb 8.6 L, Hct 29.3 L, MCV 96.1 H, MCH 28.2, MCHC 29.4 L, RDW Std Deviation 58.4 H, RDW Coeff of Rachelle 16.7 H, Plt Count 175, MPV 10.4, Immature Gran % (Auto) 0.200, Neut % (Auto) 63.8, Lymph % (Auto) 18.0 L, Kaufman % (Auto) 13.3 H, Eos % (Auto) 3.3, Baso % (Auto) 1.4 H, Absolute Neuts (auto) 2.7, Absolute Lymphs (auto) 0.76 L, Nucleated RBC % 0 03/20/24 06:25: POC Glucose 114 H Micro: Microbiology 03/18/24 22:15 Mucosa - Nose SARS-CoV-2, Influenza & RSV (PCR) - Final Radiography Diagnostic Testing: Radiology Impression Echocardiogram 03/18/24 21:10 Interpretation Summary Normal LV size. The estimated ejection fraction is 25 %. There is severe global hypokinesis of the left ventricle. Stage 3 diastolic dysfunction. Mild focal aortic valve calcification. Mean aortic valve gradient 15 mmHg. Mild (1+) aortic valve insufficiency. Moderate pulmonary hypertension. Ordering Physician: Ines Meier Referring Physician: TEOFILO SUAREZ Performed By: Shana Win RDCS Physical Exam Narrative GENERAL: cooperative HEENT: Atraumatic; normocephalic EYES; Anicteric, Normal Conjunctiva NECK; supple, normal thyroid, RESPIRATORY: Diminished to auscultation CARDIOVASCULAR: Regular S1 S2, systolic murmur GI: soft, normoactive bowel sounds, : No Renal angle tenderness; EXTREMITIES: edema, no clubbing, MUSCULOSKELETAL: no muscle wasting NEURO: Awake; no lateralizing signs. SKIN: No Rash PSYCH; Flat affect Assessment & Plan Assessment/Plan (1) CHF exacerbation: (2) Atrial fibrillation: PLAN: Plan Patient is an 89-year-old gentleman with multiple comorbidities admitted with progressive shortness of breath, increasing weight gain and bilateral lower extremity swelling diagnosis of acute congestive heart failure made admitted to a monitored bed for further management 1. Acute on chronic congestive heart failure with preserved ejection fraction ? Patient echo from 5 07/23/2018 demonstrated EF of 65%. Patient admitted to monitored bed placed on strict input and output, daily weight, fluid restriction low-sodium diet as well as diuretic therapy repeat echo ordered for subsequent evaluation 2. Paroxysmal atrial fibrillation with slow ventricular response ? Patient is on beta-blockers held given his bradycardia. Patient was previously on systemic anticoagulation discontinued for unknown reasons 3. Conduction system disorder Patient seen and evaluated by cardiology recommendations for patient to undergo pacemaker placement 4. Acute hypoxia ? Secondary to CHF patient remains on supplemental oxygen patient will likely require oxygen at discharge 5. Hypertension - Blood pressure controlled, home medications except for beta-lonny given his bradycardia, continued 6. Dyslipidemia -Patient is on statin therapy, continued at home dose 7. Diabetes mellitus type II -patient's oral hypoglycemics held. Placed on long acting insulin, Accu-Cheks a.c. and at bedtime and covered with sliding scale insulin 8. History of colon CA ? Status post partial colectomy currently remains in remission 9. Chronic kidney disease stage III ? Kidney function at baseline monitoring with daily BMP 10. AAA ? Currently being monitored by primary care physician 11. BPH with lower urinary obstructive symptoms - Patient treated with tamsulosin 12. History of prostate CA ? Currently remission 13. DVT prophylaxis ? Started on therapeutic Lovenox Time spent in the patient's overall evaluation,decision-making process, review of diagnostic data, adjustment of management, discussion with other providers, nursing nursing and ancillary staff involved in patient's care documentation, 50 Minutes Charges/Coding Visit Charges Inpatient E&M: 19952 Subs Hosp L3
[2024-03-20 08:23] LABS: Anion Gap 6 (5-15); BUN 36 mg/dL (7-18); BUN/Creat Ratio 23.1 RATIO (10-20); Calcium,Total 8.6 mg/dL (8.5-10.1); Chloride 103 mmol/L (98-107); Creatinine, Serum 1.56 mg/dL (0.70-1.30); EST Glomerular Filtration Rate 45 mL/min (>60); Est Glom Filt Rate - Afr Amer 54 mL/min (>60); Estimated Creatinine Clearance 36.28 ml/min; Glucose 117 mg/dL (74-106); Magnesium 2.3 mg/dL (1.6-2.6); Phosphorus 3.4 mg/dL (2.5-4.9); Potassium 3.8 mmol/L (3.5-5.1); Sodium Level 139 mmol/L (136-145)
--- NOTE | 2024-03-20 08:30 | NURSING ---
spoke with daughter Dr. Sinclair wants tot talk with patient and family at noon to discuss poc
[2024-03-20] MEDS: Aspirin E.C. 81 MG Tablet PO (09:07)
[2024-03-20] MEDS: Ferrous Sulfate 325 MG Tablet PO (09:08)
[2024-03-20] MEDS: Menthol/Lanolin/Calamine/Znox 113 GM Tube 1 APPLIC TOPICAL (09:08)
[2024-03-20] MEDS: Potassium Chloride Oral Tablet 20 MEQ PO (09:08)
[2024-03-20] MEDS: Folic Acid 1 MG Tablet PO (09:08)
[2024-03-20] MEDS: Magnesium Chloride 64 MG Delay Rel.Tablet PO (09:09)
[2024-03-20] MEDS: Enoxaparin 100 MG/ML Syringe 90 MG SC (09:10)
[2024-03-20] MEDS: Furosemide 40 MG/4 ML Vial IV (09:11)
[2024-03-20] MEDS: hydrALAZINE 25 MG Tablet 50 MG PO ×2 (09:28→15:34)
[2024-03-20] MEDS: 0.9% Saline Lock 10 ML Syringe IV (09:28)
[2024-03-20 11:42] LABS: Bedside Glucose 164 mg/dL (74-106)
--- NOTE | 2024-03-20 11:56 | CASEMGMT ---
Discharge Planning A list of?HH providers including quality and resource use data and consistent with the patient's preferred geographic region, medical needs, and insurance network was created in [employer] Guide.? This list was provided to the RN CALEB. Treva Snyder, Discharge Planning Asst.
--- NOTE | 2024-03-20 13:23 | CHAPLAIN ---
Type of Pastoral Visit _x__ Initial Visit ___ Follow-up Visit ___ On-call Visit ___ General Patient Visit ___ Spiritual Assessment ___ Family Conference ___ Bereavement ___ Rapid Response ___ Code Blue ___ Other (describe below) Pastoral Care Referral From _x__ Patient ___ Family ___ Nurse ___ Physician ___ [place] ___ Colon Therapist ___ Other (describe below) Sacrament/Intervention _x__ Active listening ___ Anointing ___ Denominational ___ Bereavement ___ Communion _x__ Radhika exploration ___ _x__ Life review _x__ Prayer ___ Reconciliation ___ Sacrament of Sick ___ Supportive presence ___ Wedding ___ Other (describe below) Pastoral Comments patient and family members are in the room; pt is talkative and explains his situation, that he is feeling much better, that he hopes to go home today or tomorrow at the latest, that he has been surprised by long life, that he is blessed and believes it is from God, his clean living, and taking care of ourselves; pt welcomes presence and prayers
--- NOTE | 2024-03-20 13:45 | CASEMGMT ---
Addendum entered by Won Ledbetter 03/20/24 16:25: [facility] unable to accept d/t not having ST available. Referral sent to [facility], 2nd preference. Message received from [facility] stating they are able to accept pt. Pt and family made aware. Pt is discharging home today. [facility] made aware and d/c summary sent to them via [facility]. Addendum entered by Won Ledbetter 03/20/24 14:27: YONIS ELLIS to room. Top 2 [facility] choices are: [facility] and then [facility]. Treva d/c manufacturing planner, made aware and will send referral. Original Note: YONIS ELLIS NOTE: Per [facility], earlier today, pt declined wanting MBS while @ [facility] and stated he would be willing to do it as an OP. Script received for OP ST eval and tx from Dr Desir. RN CALEB to room to discuss OP ST w/pt. Pt was sitting up in chair w/several family members @ bedside. Introduced self and role and pt agreeable to family being present during conversation. Discussed OP ST and OP MBS w/pt. Family all stated they wished for pt to have MBS done while pt @ [facility] and pt agreeable. [facility], made aware and stated would complete this today. YONIS ELLIS back to room at this time. Discussed how pt is doing w/therapy (PT/OT). Pt states he feels safe to discharge home and states he would like [facility]. Questions answered. Pt and family made aware of home-bound requirements and pt states he will be homebound upon return to home initially. Pt and family provided w/HHC list that was prepared by Treva discharge promotional advertising assistant. They will review same and made aware to provide top 3 preferences. Pt currently on RA and states walked in hallway w/therapy on RA w/out difficulty. Pt/family inquired about obtaining [employer] @ home for pt to use @ . YONIS ELLIS informed them this is not an item covered by insurance, but made aware of locations this may be purchased, such as on-line or [employer]. YONIS ELLIS did recommend they talk w/pt's PCP to inquire if this is recommended/advised for pt. Pt does have a urinal @ home that he is able to use. Jason AMAYA RN, CM
--- NOTE | 2024-03-20 13:46 | ST.MBS ---
Modified Barium Swallow Patient Information Study Date: 03/20/24 Study Time: 13:00 Direct Billable Minutes: 71 Total Minutes procedure & reportin Diagnosis: CHF exacerbation I50.9 Referring Physician: Mark Anthony Desir Reason for Referral: Objectively assess swallow function, assess risk for aspiration, and determine recommendations for least restrictive diet textures and compensatory strategies to improve safety of swallow. Medical History: PMH: Atherosclerosis of coronary artery of nulato heart without angina pectoris, CAD, CHF, CKD stage III, Colon cancer, DDD, Dyslipidemia, Dysphasia, HTN, Gout, Iron deficiency anemia, Peripheral vascular disease, Prostate cancer, DM type 2. He presented to [facility] ED 03/18/24 with dyspnea, orthopnea, weight gain, increased LE edema. He became hypoxic in the ED but improved from 86% to 95% when placed on 2L via nasal cannula. Chest x-ray with patchy opacities left lower lobe possibly edema, atelectasis or infection with marked cardiomegaly with trace left pleural effusion. He was admitted to PCU for management of acute on chronic congestive heart failure and atrial fibrillation amongst other comorbidities. He was referred for ST consult due to patient reports for swallowing difficulty with certain foods at home. Of note, his HR was 47-54 during the MBSS, which his RN reported was where his HR has been during the acute stay. RN, Dali, was present for MBSS to monitor the patient. Current Diet Ordered: Easy to Chew textures / Thin liquids Mental Status: WNL (Able to follow commands for the evaluation) Respiratory Status: Oxygenating on Room Air Penetration-Aspiration Scale Penetration-Aspiration Scale: OBJECTIVE ASSESSMENT OF SWALLOW FUNCTION (QUANTITATIVE ? PER TRIAL): PENETRATION / ASPIRATION SCALE (MCGEE): 1 = does not enter airway 2 = enters airway/above vocal folds/ejected 3 = enters airway/above vocal folds/not ejected 4 = enters airway/contacts vocal folds/ejected 5 = enters airway/contacts vocal folds/not ejected 6 = enters airway/below vocal folds/ejected 7 = enters airway/below vocal folds/not ejected despite effort 8 = enters airway/below vocal folds/no effort VIDEOFLOROSCOPIC SCALE SCORE (MCGEE): Grade I = aspiration of material that has penetrated into the laryngeal vestibule, intact cough reflex Grade II = aspiration < 10 % of the bolus, intact cough reflex Grade III = aspiration of < 10 % of the bolus, reduced cough reflex or aspiration of > 10 % of the bolus, intact cough reflex Grade IV = aspiration of > 10 % of the bolus, reduced cough reflex Penetration-Aspiration Scale Score Thin Liquid via teaspoon: Result: 1= does not enter airway Comment: Esophageal screen - Complete clearance Thin Liquid via teaspoon Trial 2: Result: 1= does not enter airway Thin Liquid via large single sip: cup: Result: 3= enters airways/above vocal folds/not ejected (trace) Pudding via teaspoon: Result: 1= does not enter airway Comment: Esophageal screen - mild retention in the lower esophagus. 1/2 Cookie: Result: 1= does not enter airway Comment: Esophageal screen - mild retention in the lower esophagus. Thin Liquid via sequential sips:straw: Result: 5= enters airways/contacts vocal folds/not ejected Comment: Trace retrograde flow of barium through the UES to the pyriforms Thin Liquid via single sip: straw: Result: 5= enters airways/contacts vocal folds/not ejected (trace) Comment: LIFE INSURANCE SALES AGENT cued small, patient took average size sip Thin Liquid via small single sip: cup Trial 2: Result: 3= enters airways/above vocal folds/not ejected Thin Liquid via small single sip: cup Chin tuck: Result: 3= enters airways/above vocal folds/not ejected (trace) Comment: Initially, he tilted his head back to swallow and LIFE INSURANCE SALES AGENT repeated cue to tuck chin when he swallowed, which he then executed Thin Liquid via small single sip: cup Effortful swallow: Result: 1= does not enter airway Oral Phase Labial Seal: Interlabial escape, no progression to anterior lip Tongue Control During Bolus Hold: Posterior escape of greater than half of bolus Bolus Preparation/Mastication: Slow prolonged chewing/mashing with complete recollection Bolus Transport/Lingual Motion: Slowed tongue motion Oral Residue: Trace residue lining oral structures Pharyngeal Phase Initiation of Pharyngeal Swallow: Bolus head in pyriforms Soft Palate Elevation: No bolus between soft palate and pharyngeal wall Laryngeal Elevation: Partial superior movement thyroid cart/partial apprx aryt-epig petiole Anterior Hyoid Excursion: No anterior movement (minimal) Epiglottic Movement: Complete inversion Laryngeal Vestibule Closure at Height of Swallow: Incomplete; narrow column of air/contrast in laryngeal vestibule Pharyngeal Stripping Wave: Present - complete Pharyngoesophageal Segment Opening: Complete distension and complete duration; no obstruction of flow Tongue Base Retraction: Narrow column of contrast between tongue base & post. pharyngeal wall Pharyngeal Residue: Collection of residue within or on pharyngeal structures (trace-mild with sequential sips of thin) Esophageal Phase Esophageal Clearance: Esophageal retention w/ retrograde flow through pharyngoesophageal seg Treatment Strategies Effects of treatment strategies attemped:: Chin tuck = little to no impact. Decreased bolus size = somewhat effective. Effortful swallow = effective. Diagnosis/Impression Diagnosis: Mild-moderate oropharyngeal dysphagia R13.12; Esophageal dysphagia R13.14 Impression: The oral phase is primarily marked by... -Decreased bolus control with premature posterior loss most notable with thin liquids. -Slowed tongue motion for A-P transport. -Slowed, but complete mastication of cookie. The pharyngeal phase is primarily marked by... -Decreased airway closure due to decreased laryngeal elevation and minimal to no anterior hyoid excursion. -Mildly decreased tongue base retraction with large, sequential sips with only trace-mild pharyngeal residue in the vallecula. -Consistent laryngeal penetration of thin liquids with trace amounts not fully ejecting after the swallow. Decreasing bolus size decreased the depth of laryngeal penetration with liquids. Effortful swallow was most effective in decreasing laryngeal penetration. No aspiration was observed during the study, but he is at risk to aspirate especially with large and/or sequential sips of liquids. The esophageal phase is primarily marked by... -Retention of pudding and cookie in the lower esophagus with min retrograde flow remaining below the UES. -Trace retrograde flow of certain sips of thin liquids through the UES to the pyriforms. Recommendations Diet: Regular Textures (Easy to Chew textures - IDDSI Level 7) and Thin Liquids Compensatory Strategies: Small Bites, Small Sips (Effortful/Hard Swallows), Slow Rate, Alternate bites/solids and sips/liquids, Sitting upright and Remain sitting upright for 30 minutes after PO intake Supervision: Distant Supervision Recommend Repeat Modified Barium Swallow: TBD Need for Skilled Speech Therapy Services: Yes Comment: -Follow for ongoing assessment of diet tolerance. -Train the patient in use of strategies to decrease risk for aspiration and reflux. -Implement oropharyngeal exercise program to improve bolus control, airway closure, and tongue base retraction (lingual resistance, CTAR, Ju). Recommended Referrals: GI Consult (Please consider OP GI consult if worsening sensation of retention of food/drink and/or regurgitation of food/drink) Education Completed: 1. Described result of evaluation., 2. Pt understands evaluation & agrees with goals and treatment plan. and 7. Pt requires further education on strategies & risks. Status Active ST Patient: Active Contact Information [facility] Speech Therapy:: Grace Centeno M.A. CCC-LIFE INSURANCE SALES AGENT? Speech-Language Pathologist?? [id number]?? [place] [address]?? [email or web address]?? [phone]
--- NOTE | 2024-03-20 14:35 | CASEMGMT ---
Addendum entered by Treva Snyder 03/20/24 15:40: [facility] declined referral. Referral sent to patients second choice, [facility]. Awaiting response. Treva Snyder, Discharge Planning Asst. Original Note: Discharge Planning Referral for SN/ST/PT/OT sent to [facility] via [facility]. Treva Snyder, Discharge Planning Asst.
--- NOTE | 2024-03-20 15:34 | PCM.DC.SUM ---
Providers Date of Admission: 03/18/24 Date of Discharge: 03/20/24 Primary Care Physician: Dr. Cory Mckeon MD Consultations 03/19/24 09:46 Consult: Cardiology Routine Consulting Provider: Mark Anthony Desir Reason for Consult: Afib, bradycardia EMERGENT Consult: No MD Notified: Yes Date Notified: 03/19/24 Time Notified: 09:47 Method of Notification: Text Reason For Visit: HYPOXIA, HF EXACERBATION, PAF Diagnosis Discharge Diagnosis (1) CHF exacerbation: Status: Chronic Code(s): I50.9 - Heart failure, unspecified (2) Atrial fibrillation: Status: Acute Code(s): I48.91 - Unspecified atrial fibrillation Plan Patient is an 89-year-old gentleman with multiple comorbidities admitted with progressive shortness of breath, increasing weight gain and bilateral lower extremity swelling diagnosis of acute congestive heart failure made admitted to a monitored bed for further management 1. Acute on chronic congestive heart failure with preserved ejection fraction ? Patient echo from 07/23/2018 demonstrated EF of 65%. Patient admitted to monitored bed placed on strict input and output, daily weight, fluid restriction low-sodium diet as well as diuretic therapy repeat echo ordered for subsequent evaluation 2. Paroxysmal atrial fibrillation with slow ventricular response ? Patient is on beta-blockers held given his bradycardia. Patient was previously on systemic anticoagulation discontinued for unknown reasons 3. Conduction system disorder Patient seen and evaluated by cardiology recommendations for patient to undergo pacemaker placement ? Patient will follow-up with Dr. HENSON as outpatient to be scheduled for single-lead pacemaker placement. Patient beta-blockers discontinued on discharge 4. Acute hypoxia ? Secondary to CHF patient remains on supplemental oxygen patient will likely require oxygen at discharge 5. Hypertension - Blood pressure controlled, home medications except for beta-lonny given his bradycardia, continued 6. Dyslipidemia -Patient is on statin therapy, continued at home dose 7. Diabetes mellitus type II -patient's oral hypoglycemics held. Placed on long acting insulin, Accu-Cheks a.c. and at bedtime and covered with sliding scale insulin 8. History of colon CA ? Status post partial colectomy currently remains in remission 9. Chronic kidney disease stage III ? Kidney function at baseline monitoring with daily BMP 10. AAA ? Currently being monitored by primary care physician 11. BPH with lower urinary obstructive symptoms - Patient treated with tamsulosin 12. History of prostate CA ? Currently remission 13. DVT prophylaxis ? Started on therapeutic Lovenox Medications at Discharge Home Medications hydralazine 25 mg tablet 50 mg PO 4X/DAY 05/14/16 pravastatin 40 mg tablet 40 mg PO QHS 05/14/16 probenecid 500 mg tablet 500 mg PO DAILY 05/14/16 aspirin 81 mg tablet,delayed release 81 mg PO DAILY@0800 07/16/16 cholecalciferol (vitamin D3) 25 mcg (1,000 unit) tablet 1,000 unit PO DAILY 07/16/16 cyanocobalamin (vitamin B-12) 1,000 mcg tablet 1,000 mcg PO DAILY 07/16/16 metformin 500 mg 24 hr tablet,extended release (gastric retention) 500 mg PO DAILY 07/16/16 losartan 100 mg tablet (Cozaar) 150 mg PO DAILY 06/25/19 sitagliptin phosphate 50 mg tablet 50 mg PO DAILY 06/25/19 tamsulosin 0.4 mg capsule (Flomax) 0.8 mg PO QHS 06/25/19 docusate sodium 100 mg capsule (Colace) 100 mg PO BID PRN constipation 09/11/19 ferrous sulfate 325 mg (65 mg iron) tablet (Feosol) 325 mg PO BID 09/11/19 folic acid 400 mcg tablet 800 mcg PO DAILY 09/11/19 insulin glargine 100 unit/mL (3 mL) subcutaneous pen 8 unit subcut QHS 09/11/19 amlodipine 10 mg tablet See Rx Instructions .Route .COMPLEX 03/18/24 blood sugar diagnostic (True Metrix Glucose Test Strip) 03/18/24 gabapentin 400 mg capsule 400 mg PO QHS 03/18/24 latanoprost 0.005 % eye drops 1 drp ophthalmic (eye) QHS 03/18/24 magnesium chloride 71.5 mg (magnesium chloride) tablet,delayed release 71.5 mg PO BID 03/18/24 pen needle, diabetic 31 gauge x 3/16 (Droplet Pen Needle) 03/18/24 potassium chloride 20 mEq tablet,extended release(part/cryst) 20 meq PO DAILY 03/18/24 furosemide 40 mg tablet (Lasix) 40 mg PO BIDCM #120 tabs 03/20/24 Hospital Course Summary of Care Provided Minutes Spent on Discharge: 35 Physical Exam Narrative GENERAL: cooperative HEENT: Atraumatic; normocephalic EYES; Anicteric, Normal Conjunctiva NECK; supple, normal thyroid, RESPIRATORY: Diminished to auscultation CARDIOVASCULAR: Regular S1 S2, systolic murmur GI: soft, normoactive bowel sounds, : No Renal angle tenderness; EXTREMITIES: edema, no clubbing, MUSCULOSKELETAL: no muscle wasting NEURO: Awake; no lateralizing signs. SKIN: No Rash PSYCH; Flat affect Weight / BMI Weight Weight: 86.3 kg Body Mass Index (BMI) 25.1 ABG / Lab / Microbiology Data 03/20/24 05:40 03/20/24 05:40 Laboratory: Laboratory Results - last 24 hr 03/19/24 16:14: POC Glucose 164 H 03/19/24 22:06: POC Glucose 163 H 03/20/24 05:40: WBC 4.2 L, RBC 3.05 L, Hgb 8.6 L, Hct 29.3 L, MCV 96.1 H, MCH 28.2, MCHC 29.4 L, RDW Std Deviation 58.4 H, RDW Coeff of Rachelle 16.7 H, Plt Count 175, MPV 10.4, Immature Gran % (Auto) 0.200, Neut % (Auto) 63.8, Lymph % (Auto) 18.0 L, [place] % (Auto) 13.3 H, Eos % (Auto) 3.3, Baso % (Auto) 1.4 H, Absolute Neuts (auto) 2.7, Absolute Lymphs (auto) 0.76 L, Nucleated RBC % 0, Sodium 139, Potassium 3.8, Chloride 103, Carbon Dioxide 30.0, Anion Gap 6, BUN 36 H, Creatinine 1.56 H, Estim Creat Clear Calc 36.28, Est GFR (MDRD) Af Amer 54 L, Est GFR (MDRD) Non-Af 45 L, BUN/Creatinine Ratio 23.1 H, Glucose 117 H, Calcium 8.6, Phosphorus 3.4, Magnesium 2.3 03/20/24 06:25: POC Glucose 114 H 03/20/24 11:13: POC Glucose 164 H Microbiology: Microbiology 03/18/24 22:15 Mucosa - Nose SARS-CoV-2, Influenza & RSV (PCR) - Final D/C Instructions Discharge Diet: 8 Cup Fluid Restriction and 2000 mg Sodium Diet Discharge Activity: Return to Normal Activity Call your doctor if you observe: Fever of 101 or Higher, Shortness of breath, Fainting spells and Chest pain Meaningful Use Info Meaningful Use Meaningful Use Diagnoses (Choose all that apply): CHF CHF BRODY/ARB ordered at discharge?: No Reason BRODY/ARB not ordered?: Worsening renal function Documented LVEF (%): 25 Ischemic Stroke Statin Dosing Therapy Reference: STATIN DOSE THERAPY REFERENCE: * Patients > 75 years receive moderate or high dose statin therapy. * Patients 75 years or YOUNGER should receive HIGH intensity statin dose unless contraindicated. You will be required to document reason for non-treatment if statin daily dose does not meet guidelines. HIGH DOSE STATIN THERAPY DAILY Atorvastatin > than or = to 40 mg Rosuvastatin > than or = to 20 mg Amlodipine + Atorvastatin > than or = to 2.5/40 mg Ezetimibe + Simvastatin 10/80 mg Simvastatin 80mg Discharge Plan Admission Admit Date/Time: 03/18/24 20:37 Attending Provider: Mark Anthony Desir Primary Care Provider: Cory Mckeon Consulting Providers: Ines Meier; Mark Anthony Desir Discharge Orders/Prescriptions Prescriptions: Continued losartan [Cozaar] 100 mg tablet 150 mg PO DAILY tamsulosin [Flomax] 0.4 mg capsule 0.8 mg PO QHS ferrous sulfate [Feosol] 325 mg (65 mg iron) tablet 325 mg PO BID docusate sodium [Colace] 100 mg capsule 100 mg PO BID PRN (Reason: constipation) folic acid 400 mcg tablet 800 mcg PO DAILY pravastatin 40 MG tablet 40 mg PO QHS Patient Comments: Cholestrol hydralazine 25 MG tablet 50 mg PO 4X/DAY Patient Comments: Blood pressure probenecid 500 MG tablet 500 mg PO DAILY Patient Comments: Gout sitagliptin phosphate 50 mg tablet 50 mg PO DAILY Patient Comments: Diabetes insulin glargine 100 unit/mL (3 mL) insulin pen 8 unit subcut QHS Patient Comments: Long acting insulin for diabetes cyanocobalamin (vitamin B-12) 1,000 MCG tablet 1,000 mcg PO DAILY Patient Comments: Supplement aspirin 81 MG tablet 81 mg PO DAILY@0800 Patient Comments: Heart health metformin 500 MG tablet,ER sandra.retention 24 hr 500 mg PO DAILY Patient Comments: Diabetes cholecalciferol (vitamin D3) 1,000 UNIT tablet 1,000 unit PO DAILY Patient Comments: Supplement gabapentin 400 mg capsule 400 mg PO QHS latanoprost 0.005 % drops 1 drp ophthalmic (eye) QHS magnesium chloride 71.5 mg tablet,delayed release (DR/EC) 71.5 mg PO BID potassium chloride 20 mEq tablet,ER particles/crystals 20 meq PO DAILY amlodipine 10 mg tablet See Rx Instructions .ROUTE .COMPLEX Rx Instructions: TAKE 1 TABLET EVERY BEDTIME (DME) True Metrix Glucose Test Strip Strip MISCELLANEOUS Patient Comments: [NO ORIGINAL SIG] (DME) pen needle, diabetic [Droplet Pen Needle] 31 gauge x 3/16 needle MISCELLANEOUS Patient Comments: [NO ORIGINAL SIG] Changed furosemide [Lasix] 40 mg tablet 40 mg PO BIDCM Qty: 120 0RF Discontinued metoprolol tartrate 25 mg tablet 12.5 mg PO BID Other Ambulatory Orders: Speech Therapy Evaluation (Routine) Location: None Selected Ordered By: Dr. Mark Anthony Desir Referrals / Follow Up: Cory Mckeon MD [Primary Care Provider] - Within 2 Weeks Ken Antunez NP, PROPELLANT CHARGE LOADER-C [Med Staff - [facility] Practice Prof] - Within 2 Weeks Disposition Disposition (needs filled in before D/C Order can be placed): Home Health Service Charges/Coding Visit Charges Inpatient E&M: 90653 Disch Hosp >30min
--- NOTE | 2024-03-20 15:36 | PN.CARD_ITS ---
Subjective Subjective Patient seen and evaluated. Objective Data Vital Signs: Vital Signs Temp Pulse Resp BP Pulse Ox O2 Del Method O2 Flow Rate 97.8 F 47 L 18 138/61 H 93 Room Air 2 03/20/24 15:29 03/20/24 15:34 03/20/24 15:29 03/20/24 15:34 03/20/24 15:29 03/20/24 15:29 03/20/24 09:02 Oxygen Flow Rate (L/min) 2 Oxygen Delivery Method Room Air Weight: 190 lb 4.143 oz Body Mass Index (BMI) 25.1 Intake & Output: Intake and Output for Last 24 Hours 03/18/24 03/19/24 03/20/24 23:59 23:59 23:59 Intake Total 600 / 600 600 / 600 Output Total 800 / 800 1250 / 1250 200 / 200 Balance -800 / -800 -650 / -650 400 / 400 Lab / Micro Data 03/20/24 05:40 03/20/24 05:40 Labs: Laboratory Results - last 24 hr 03/19/24 16:14: POC Glucose 164 H 03/19/24 22:06: POC Glucose 163 H 03/20/24 05:40: WBC 4.2 L, RBC 3.05 L, Hgb 8.6 L, Hct 29.3 L, MCV 96.1 H, MCH 28.2, MCHC 29.4 L, RDW Std Deviation 58.4 H, RDW Coeff of Rachelle 16.7 H, Plt Count 175, MPV 10.4, Immature Gran % (Auto) 0.200, Neut % (Auto) 63.8, Lymph % (Auto) 18.0 L, [place] % (Auto) 13.3 H, Eos % (Auto) 3.3, Baso % (Auto) 1.4 H, Absolute Neuts (auto) 2.7, Absolute Lymphs (auto) 0.76 L, Nucleated RBC % 0, Sodium 139, Potassium 3.8, Chloride 103, Carbon Dioxide 30.0, Anion Gap 6, BUN 36 H, Creatinine 1.56 H, Estim Creat Clear Calc 36.28, Est GFR (MDRD) Af Amer 54 L, Est GFR (MDRD) Non-Af 45 L, BUN/Creatinine Ratio 23.1 H, Glucose 117 H, Calcium 8.6, Phosphorus 3.4, Magnesium 2.3 03/20/24 06:25: POC Glucose 114 H 03/20/24 11:13: POC Glucose 164 H Cardiology Labs/Tests 03/20/24 05:40: WBC 4.2 L, RBC 3.05 L, Hgb 8.6 L, Hct 29.3 L, MCV 96.1 H, MCH 28.2, MCHC 29.4 L, Plt Count 175, MPV 10.4, Immature Gran % (Auto) 0.200, Neut % (Auto) 63.8, Lymph % (Auto) 18.0 L, [place] % (Auto) 13.3 H, Eos % (Auto) 3.3, Baso % (Auto) 1.4 H, Absolute Neuts (auto) 2.7, Nucleated RBC % 0, Sodium 139, Potassium 3.8, Chloride 103, Carbon Dioxide 30.0, Anion Gap 6, BUN 36 H, Creatinine 1.56 H, Est GFR (MDRD) Af Amer 54 L, Est GFR (MDRD) Non-Af 45 L, BUN/Creatinine Ratio 23.1 H, Glucose 117 H, Calcium 8.6, Phosphorus 3.4, Magnesium 2.3 Rhythm: EKG: ECHO: Stress Test: Cardiac Cath: PCI: CT Surgery: Holter monitor: EPS: PPM: CXR: Chest CT Scan: Physical Exam Const alert, oriented x3 and no apparent distress General Appearance: cooperative HEENT hearing grossly normal bilaterally Head and Scalp: atraumatic Eyes EOMs intact bilaterally Neck General: normal visual inspection Chest inspection of chest normal and palpation of chest normal Resp normal respiratory effort Auscultation: clear to auscultation bilaterally Cardio S1 normal heart sound and S2 normal heart sound Jugular Venous Distention: JVD Rhythm: abnormal rhythm GI normal to inspection, nondistended, normoactive bowel sounds Extremity normal capillary refill and no pedal edema Peripheral Pulses: Yes pulses 2+ throughout and femoral pulses present Skin no rashes or lesions noted Neuro oriented x3 and CN's II-XII intact bilaterally Psych Appearance: grossly normal and appropriate Assessment & Plan Assessment/Plan (1) CHF exacerbation: PLAN: Patient presents with an exacerbation of congestive heart failure. The exact etiology is not clear at this particular time it could be from the atrial fibrillation with a slow ventricular response rate. My recommendation will be to continue with intravenous diuresis, evaluate his ejection fraction which has been done with his echocardiogram demonstrating a significant decline in his EF to approximately 25% which appears to be global. * Will recommend to be placed on guideline directed medical therapy. (2) Atrial fibrillation: PLAN: He does have atrial fibrillation with a slow ventricular response rate. I will recommend we discontinue the beta-lonny at this time and see what happens to his heart rate. He does have a left bundle branch block and so ideally if he needs permanent pacemaker implantation he should have a RADIO STATION MANAGER-D placed. I did discuss with the family and apparently he had refused a pacemaker a few years ago he is willing to consider it if its improved but he did want to done here he does not want to go elsewhere. I did suggest to him that perhaps a single lead or even a Micra. It may lead to no improvement in his ejection fraction but at his age we can probably treat this. He and his family are fine with this. He will be discharged for outpatient follow-up and will get the above scheduled in the next 2 to 4 weeks. (3) Essential (primary) hypertension: PLAN: His blood pressure does not appear to be very well-controlled at this time we will try and optimize his medical blood pressure therapy. (4) Left bundle branch block: PLAN: He does have a left bundle branch block which appears to be chronic at this time.
== END 2024-03-20 17:07 | disposition home health service (06) | DRG 291 ==
LOC: ED 18:58 → PCU 21:29
PROVIDERS: Admitting Provider Family Medicine; Emergency Provider Student in an Organized Health Care Education/Training Program; PCP Family Medicine; Visit Provider Internal Medicine
DX: I13.0 Hypertensive heart and chronic kidney disease with heart failure and stage 1 through stage 4 chronic kidney disease, or unspecified chronic kidney disease (principal); I50.33 Acute on chronic diastolic (congestive) heart failure; E11.22 Type 2 diabetes mellitus with diabetic chronic kidney disease; E11.40 Type 2 diabetes mellitus with diabetic neuropathy, unspecified; E11.51 Type 2 diabetes mellitus with diabetic peripheral angiopathy without gangrene; D50.9 Iron deficiency anemia, unspecified; N18.30 Chronic kidney disease, stage 3 unspecified; Z79.4 Long term (current) use of insulin; I48.0 Paroxysmal atrial fibrillation; E78.5 Hyperlipidemia, unspecified; I25.10 Atherosclerotic heart disease of native coronary artery without angina pectoris; I71.20 Thoracic aortic aneurysm, without rupture, unspecified; I71.40 Abdominal aortic aneurysm, without rupture, unspecified; N40.1 Benign prostatic hyperplasia with lower urinary tract symptoms; Z79.84 Long term (current) use of oral hypoglycemic drugs; Z79.899 Other long term (current) drug therapy; Z79.82 Long term (current) use of aspirin; Z87.891 Personal history of nicotine dependence
CPT/HCPCS: 36415; 71045; 74230; 80048; 80053; 80061; 82962; 83735; 83880; 84100; 84443; 84484; 85025; 87631; 92526; 92610; 92611; 93005; 93306; 94668; 97162; 97166; 97535; 97802; 99285; A4216; J1940

== ENCOUNTER 2024-04-13 17:28 | Inpatient (IN) | payer MEDICARE, SELFPAY ==
[2024-04-13] VITALS (11 sets, daily range): BP systolic 143–149; BP diastolic 67–105; PULSE 44–59; RESP 18–23; TEMP 36.2–36.6; O2SAT 92–98; BMI 26.7; BMI 25.7
--- NOTE | 2024-04-13 17:51 | EKG12_ITS ---
Test Reason : SOB Blood Pressure : / mmHG Vent. Rate : 044 BPM Atrial Rate : 000 BPM P-R Int : 000 ms QRS Dur : 196 ms QT Int : 552 ms P-R-T Axes : 000 -19 155 degrees QTc Int : 471 ms Atrial fibrillation with slow ventricular response Left bundle branch block Abnormal ECG Confirmed by SHELTON STEWART, TORITO ([id number]), communications editor DOUG CHILDS ([id number]) on 04/16/2024 6:19:17 AM Referred By: Confirmed By:DAVID PEOPLES MD
[2024-04-13 18:18] LABS: Absolute Lymphocyte Count 0.59 X10^3/uL (0.83-4.51); Absolute Neutrophil Count 3.8 X10^3/uL (2.0-7.7); Basophil# 0.04 X10^3/uL; Basophil% 0.8 % (0-1); Eosinophil# 0.08 X10^3/uL; Eosinophils% 1.6 % (0-5); Hematocrit 27.6 % (40-54); Lymphocyte # 0.59 X10^3/ul (0.83-4.51); Lymphocyte % 11.6 % (19-41); Mean Corpuscular Hgb 27.7 pg (27.0-32.0); Mean Corpuscular Volume 95.5 fL (80-94); Mean Platelet Vol. 10.1 fl (6.2-12.0); Monocyte# 0.56 X10^3/uL; NRBC Flagged by Analyzer 0 % (0-5); Neutrophil # 3.79 X10^3/uL (2.7-7.7); Neutrophil % 74.4 % (47-70); POSITIVE DIFFERENTIAL YES; Platelet Count 147 K/mm3 (150-450); RBC Distribution Width CV 16.6 % (11.6-14.6); Red Blood Count 2.89 M/mm3 (4.6-6.2); White Blood Count 5.1 K/mm3 (4.4-11.0)
--- NOTE | 2024-04-13 18:20 | RAD_ITS ---
INDICATION: chest pain EXAMINATION/TECHNIQUE: X-RAY - XR Chest 1 View COMPARISON: March 18, 2024. FINDINGS: LINES/DEVICES: None. LUNGS: Increased opacification medial right lower lung. Right costophrenic angle atelectasis or trace effusion. Chronic interstitial coarsening. No florid interstitial edema. No pneumothorax. MEDIASTINUM AND CARDIOVASCULAR STRUCTURES: Unchanged cardiomegaly. Aortic atherosclerosis. BONES AND SOFT TISSUES: Unremarkable. Mild diffuse vertebral bridging osteophytes. RAD/Chest 1 View (Portable) IMPRESSION: Increased opacification medial right lower lung concerning for pneumonia in the appropriate setting. CT could further evaluate as clinically indicated. Otherwise follow-up radiograph recommended after treatment to ensure resolution. Chronic right costophrenic angle atelectasis, scarring or trace effusion Unchanged cardiomegaly. Electronically Signed: Jarad Schaffer MD at 19:44 EDT ,
[2024-04-13 18:35] LABS: Anion Gap 5 (5-15); BUN 31 mg/dL (7-18); BUN/Creat Ratio 20.4 RATIO (10-20); Calcium,Total 8.6 mg/dL (8.5-10.1); Chloride 106 mmol/L (98-107); Creatinine, Serum 1.52 mg/dL (0.70-1.30); EST Glomerular Filtration Rate 46 mL/min (>60); Est Glom Filt Rate - Afr Amer 56 mL/min (>60); Estimated Creatinine Clearance 37.23 ml/min; Glucose 110 mg/dL (74-106); Potassium 4.1 mmol/L (3.5-5.1); Sodium Level 139 mmol/L (136-145); Troponin-I HS 28 pg/mL (3.0-78.0)
--- NOTE | 2024-04-13 19:57 | ED.VIS.DYS ---
HPI History of Present Illness Chief Complaint: Shortness of Breath Narrative Narrative: 89-year-old male presenting with dyspnea. He has a history of CHF and is supposed to be on Lasix 40 mg p.o. twice daily. He states he does not take them all the time because it makes him urinate too much. He does not like To get up and go to the bathroom so much. He does not really know how long it has been since he has been taking it twice a day. He takes it intermittently. He states he is having orthopnea and dyspnea on exertion although he can walk. He does not wear oxygen [facility] Medical History (Updated 04/13/24 @ 21:[address] Eleno Sherwood MD) Hypothyroidism Non-smoker Peripheral vascular disease Prostate cancer Lumbar stenosis Gout DDD (degenerative disc disease) Carotid artery stenosis Chronic diastolic (congestive) heart failure Non-rheumatic aortic stenosis Atherosclerosis of coronary artery of [place] heart without angina pectoris Secondary pulmonary arterial hypertension Essential (primary) hypertension Left bundle branch block Stool guaiac positive Iron deficiency anemia Personal history of colonic polyps History of malignant neoplasm of colon Dysphasia Chronic kidney disease, stage III (moderate) Thoracic aortic aneurysm without rupture Colon cancer, ascending Dyslipidemia Type II diabetes mellitus Home Medications ?Medication ?Instructions ?Recorded ?Last Taken ?Type pravastatin 40 mg tablet 40 mg PO QHS cholesterol 05/14/16 03/17/24 History probenecid 500 mg tablet 500 mg PO DAILY gout 05/14/16 03/18/24 History aspirin 81 mg tablet,delayed 81 mg PO DAILY@0800 heart health 07/16/16 03/18/24 History release cholecalciferol (vitamin D3) 25 1,000 unit PO DAILY vitamin 07/16/16 03/18/24 History mcg (1,000 unit) tablet cyanocobalamin (vitamin B-12) 1,000 mcg PO DAILY supplement 07/16/16 03/18/24 History 1,000 mcg tablet metformin 500 mg 24 hr 500 mg PO DAILY diabetes 07/16/16 03/18/24 History tablet,extended release (gastric retention) losartan 100 mg tablet (Cozaar) 150 mg PO DAILY BP 06/25/19 03/18/24 History sitagliptin phosphate 50 mg tablet 50 mg PO DAILY diabetes 06/25/19 03/18/24 History tamsulosin 0.4 mg capsule (Flomax) 0.8 mg PO QHS urination 06/25/19 03/17/24 History docusate sodium 100 mg capsule 100 mg PO BID PRN sool softener 09/11/19 Unknown History (Colace) ferrous sulfate 325 mg (65 mg 325 mg PO BID iron supplement 09/11/19 03/18/24 History iron) tablet (Feosol) folic acid 400 mcg tablet 800 mcg PO DAILY vitamin 09/11/19 03/18/24 History insulin glargine 100 unit/mL (3 8 unit subcut QHS diabetes 09/11/19 03/17/24 History mL) subcutaneous pen amlodipine 10 mg tablet See Rx Instructions .Route 03/18/24 03/17/24 History .COMPLEX BP blood sugar diagnostic (True 03/18/24 Unknown History Metrix Glucose Test Strip) gabapentin 400 mg capsule 400 mg PO QHS nerve pain 03/18/24 03/18/24 History latanoprost 0.005 % eye drops 1 drp ophthalmic (eye) QHS eye 03/18/24 03/17/24 History health magnesium chloride 71.5 mg 71.5 mg PO BID supplement 03/18/24 03/18/24 History (magnesium chloride) tablet,delayed release pen needle, diabetic 31 gauge x 03/18/24 Unknown History 01/31 (Droplet Pen Needle) potassium chloride 20 mEq 20 meq PO DAILY supplement 03/18/24 03/18/24 History tablet,extended release(part/cryst) furosemide 40 mg tablet (Lasix) 40 mg PO BIDCM #120 tabs 03/20/24 Unknown Rx hydralazine 50 mg tablet 50 mg PO 4X/DAY 04/02/24 Unknown History Allergy/AdvReac Type Severity Reaction Status Date / Time Milk Containing Products AdvReac NEEDS Verified 04/13/24 17:29 (Dairy) (Milk Containing FOLLOW-UP Products) quinapril (From Accupril) AdvReac Other Verified 04/13/24 17:29 Family History Mother Colon cancer Heart disease Hypertension CAD (coronary artery disease) Father Cancer prostate CVA (cerebral vascular accident) CAD (coronary artery disease) Brother CAD (coronary artery disease) CABG Brother CAD (coronary artery disease) CABG Surgical History History of left heart catheterization (07/2001) H/O colectomy S/P colonoscopy S/P cataract extraction Status post colectomy Social History household members: spouse Smoking Status: Former smoker how long ago did patient quit smokin years ago alcohol intake: never substance use type: does not use EXAM Physical Exam Const Vital Signs: 04/13/24 17:30 04/13/24 18:07 04/13/24 19:18 Temperature 97.2 F L Temperature Source Temporal Pulse Rate 54 L Respiratory Rate 18 Respiratory Effort Short of Breath Blood Pressure 145/67 H Blood Pressure Mean 93 Pulse Ox 95 98 Oxygen Delivery Method Room Air Nasal Cannula Nasal Cannula Oxygen Flow Rate (L/min) 2 2 04/13/24 19:22 04/13/24 20:29 Temperature 97.9 F Temperature Source Oral Pulse Rate 57 L 50 L Respiratory Rate 21 H 20 H Respiratory Effort Blood Pressure 145/75 H 143/77 H Blood Pressure Mean 98 99 Pulse Ox 98 94 Oxygen Delivery Method Nasal Cannula Nasal Cannula Oxygen Flow Rate (L/min) 2 MDM MDM MDM Narrative Medical decision making narrative: Patient presenting with shortness of breath, orthopnea. Patient states that he is not taking his Lasix as he should. It is unclear how much he is actually taking. He takes his medications on his own and is not monitored. He does state that he is not taking the correct amount. Differential includes CHF, pneumonia, dehydration, anemia, electrode abnormalities, ACS, dysrhythmia. CBC was obtained to assess white blood cell count, hemoglobin, platelets. BMP to assess renal function, electrolytes, glucose. High-sensitivity troponin to assess for ischemia as well as EKG. EKG on my interpretation shows atrial fibrillation with slow ventricular response at 44 bpm. Chest x-ray interpreted by radiology as possible pneumonia however believe he has CHF as clinically he is not taking his medications and has orthopnea. I will give him 40 mg of Lasix. White count 5.1. Patient became hypoxic sitting in bed down to 87%. He is placed on O2. At this point I will admit him due to hypoxia and CHF exacerbation. Impression: 1. CHF exacerbation 2. Hypoxia 3. Medical noncompliance Lab Data Attestation: I reviewed the patient's lab results. Labs: Laboratory Results - last 24 hr 04/13/24 18:05 WBC 5.1 RBC 2.89 L Hgb 8.0 L Hct 27.6 L MCV 95.5 H MCH 27.7 MCHC 29.0 L RDW Std Deviation 58.0 H RDW Coeff of Rachelle 16.6 H Plt Count 147 L MPV 10.1 Immature Gran % (Auto) 0.600 Neut % (Auto) 74.4 H Lymph % (Auto) 11.6 L [place] % (Auto) 11.0 H Eos % (Auto) 1.6 Baso % (Auto) 0.8 Absolute Neuts (auto) 3.8 Absolute Lymphs (auto) 0.59 L Nucleated RBC % 0 Sodium 139 Potassium 4.1 Chloride 106 Carbon Dioxide 28.0 Anion Gap 5 BUN 31 H Creatinine 1.52 H Estim Creat Clear Calc 37.23 Est GFR (MDRD) Af Amer 56 L Est GFR (MDRD) Non-Af 46 L BUN/Creatinine Ratio 20.4 H Glucose 110 H Calcium 8.6 Troponin I High Sens 28 Radiography Diagnostic Testing: Clinical Impression(s) from Imaging Studies Chest X-Ray 04/13/24 18:20 IMPRESSION: Increased opacification medial right lower lung concerning for pneumonia in the appropriate setting. CT could further evaluate as clinically indicated. Otherwise follow-up radiograph recommended after treatment to ensure resolution. Chronic right costophrenic angle atelectasis, scarring or trace effusion Unchanged cardiomegaly. Electronically Signed: Jarad Schaffer MD at 19:44 EDT Reading Location ID and State: [address] [place] [address] Tel , Service support , Discharge Plan Triage Chief Complaint: Shortness of Breath ED Provider: Dl Otero Dx/Rx/DC Orders Prescriptions: No Action losartan [Cozaar] 100 mg tablet 150 mg PO DAILY tamsulosin [Flomax] 0.4 mg capsule 0.8 mg PO QHS ferrous sulfate [Feosol] 325 mg (65 mg iron) tablet 325 mg PO BID docusate sodium [Colace] 100 mg capsule 100 mg PO BID PRN (Reason: sool softener) folic acid 400 mcg tablet 800 mcg PO DAILY hydralazine 50 mg tablet 50 mg PO 4X/DAY pravastatin 40 MG tablet 40 mg PO QHS Patient Comments: Cholestrol probenecid 500 MG tablet 500 mg PO DAILY Patient Comments: Gout sitagliptin phosphate 50 mg tablet 50 mg PO DAILY Patient Comments: Diabetes insulin glargine 100 unit/mL (3 mL) insulin pen 8 unit subcut QHS Patient Comments: Long acting insulin for diabetes cyanocobalamin (vitamin B-12) 1,000 MCG tablet 1,000 mcg PO DAILY Patient Comments: Supplement aspirin 81 MG tablet 81 mg PO DAILY@0800 Patient Comments: Heart health metformin 500 MG tablet,ER sandra.retention 24 hr 500 mg PO DAILY Patient Comments: Diabetes cholecalciferol (vitamin D3) 1,000 UNIT tablet 1,000 unit PO DAILY Patient Comments: Supplement gabapentin 400 mg capsule 400 mg PO QHS latanoprost 0.005 % drops 1 drp ophthalmic (eye) QHS magnesium chloride 71.5 mg tablet,delayed release (DR/EC) 71.5 mg PO BID potassium chloride 20 mEq tablet,ER particles/crystals 20 meq PO DAILY amlodipine 10 mg tablet See Rx Instructions .ROUTE .COMPLEX Rx Instructions: TAKE 1 TABLET EVERY BEDTIME (DME) True Metrix Glucose Test Strip Strip MISCELLANEOUS Patient Comments: [NO ORIGINAL SIG] (DME) pen needle, diabetic [Droplet Pen Needle] 31 gauge x 3/16 needle MISCELLANEOUS Patient Comments: [NO ORIGINAL SIG] furosemide [Lasix] 40 mg tablet 40 mg PO BIDCM Qty: 120 0RF Primary Care Provider: Cory Mckeon Referrals: Cory Mckeon MD [Primary Care Provider] - Print Language: Croatian
--- NOTE | 2024-04-13 21:40 | PCM.HP.STD ---
[facility] - General General Date of Admission: 04/13/24 Date of Service: 04/13/24 Chief Complaint: Shortness of breath HPI Narrative JASON STANLEY, is a 89 M who presents to the emergency room with chief complaint of shortness of breath. Onset of symptoms began approximately 3 days ago the patient is experience worsening shortness of breath. Patient denies fever or chills, chest pain and/or nausea or vomiting. Patient has significant past medical history of congestive heart failure was admitted earlier this month with an echocardiogram done at that time showing an ejection fraction of 25%. Patient has been reluctant to take his Lasix as prescribed due to excessive urination. Patient also expressed that he is DNR Comfort Care arrest. Patient had does not routinely wear oxygen at home and is hypoxic here in the emergency room and requiring oxygen to maintain his saturation above 90%. He will be admitted to the progressive care unit for exacerbation of congestive heart failure.. Patient will be managed with diuretic therapy and monitored for progression of his hypoxia. [facility] Medical History (Updated 04/13/24 @ 21:[address] Eleno Sherwood MD) Hypothyroidism Non-smoker Peripheral vascular disease Prostate cancer Lumbar stenosis Gout DDD (degenerative disc disease) Carotid artery stenosis Chronic diastolic (congestive) heart failure Non-rheumatic aortic stenosis Atherosclerosis of coronary artery of [place] heart without angina pectoris Secondary pulmonary arterial hypertension Essential (primary) hypertension Left bundle branch block Stool guaiac positive Iron deficiency anemia Personal history of colonic polyps History of malignant neoplasm of colon Dysphasia Chronic kidney disease, stage III (moderate) Thoracic aortic aneurysm without rupture Colon cancer, ascending Dyslipidemia Type II diabetes mellitus Home Medications ?Medication ?Instructions ?Recorded ?Last Taken ?Type pravastatin 40 mg tablet 40 mg PO QHS cholesterol 05/14/16 03/17/24 History probenecid 500 mg tablet 500 mg PO DAILY gout 05/14/16 03/18/24 History aspirin 81 mg tablet,delayed 81 mg PO DAILY@0800 heart health 07/16/16 03/18/24 History release cholecalciferol (vitamin D3) 25 1,000 unit PO DAILY vitamin 07/16/16 03/18/24 History mcg (1,000 unit) tablet cyanocobalamin (vitamin B-12) 1,000 mcg PO DAILY supplement 07/16/16 03/18/24 History 1,000 mcg tablet metformin 500 mg 24 hr 500 mg PO DAILY diabetes 07/16/16 03/18/24 History tablet,extended release (gastric retention) losartan 100 mg tablet (Cozaar) 150 mg PO DAILY BP 06/25/19 03/18/24 History sitagliptin phosphate 50 mg tablet 50 mg PO DAILY diabetes 06/25/19 03/18/24 History tamsulosin 0.4 mg capsule (Flomax) 0.8 mg PO QHS urination 06/25/19 03/17/24 History docusate sodium 100 mg capsule 100 mg PO BID PRN sool softener 09/11/19 Unknown History (Colace) ferrous sulfate 325 mg (65 mg 325 mg PO BID iron supplement 09/11/19 03/18/24 History iron) tablet (Feosol) folic acid 400 mcg tablet 800 mcg PO DAILY vitamin 09/11/19 03/18/24 History insulin glargine 100 unit/mL (3 8 unit subcut QHS diabetes 09/11/19 03/17/24 History mL) subcutaneous pen amlodipine 10 mg tablet See Rx Instructions .Route 03/18/24 03/17/24 History .COMPLEX BP blood sugar diagnostic (True 03/18/24 Unknown History Metrix Glucose Test Strip) gabapentin 400 mg capsule 400 mg PO QHS nerve pain 03/18/24 03/18/24 History latanoprost 0.005 % eye drops 1 drp ophthalmic (eye) QHS eye 03/18/24 03/17/24 History health magnesium chloride 71.5 mg 71.5 mg PO BID supplement 03/18/24 03/18/24 History (magnesium chloride) tablet,delayed release pen needle, diabetic 31 gauge x 03/18/24 Unknown History 01/31 (Droplet Pen Needle) potassium chloride 20 mEq 20 meq PO DAILY supplement 03/18/24 03/18/24 History tablet,extended release(part/cryst) furosemide 40 mg tablet (Lasix) 40 mg PO BIDCM #120 tabs 03/20/24 Unknown Rx hydralazine 50 mg tablet 50 mg PO 4X/DAY 04/02/24 Unknown History Allergy/AdvReac Type Severity Reaction Status Date / Time Milk Containing Products AdvReac NEEDS Verified 04/13/24 17:29 (Dairy) (Milk Containing FOLLOW-UP Products) quinapril (From Accupril) AdvReac Other Verified 04/13/24 17:29 Family History Mother Colon cancer Heart disease Hypertension CAD (coronary artery disease) Father Cancer prostate CVA (cerebral vascular accident) CAD (coronary artery disease) Brother CAD (coronary artery disease) CABG Brother CAD (coronary artery disease) CABG Surgical History History of left heart catheterization (07/2001) H/O colectomy S/P colonoscopy S/P cataract extraction Status post colectomy Social History household members: spouse Smoking Status: Former smoker how long ago did patient quit smokin years ago alcohol intake: never substance use type: does not use ROS Constitutional Constitutional: Reports fatigue; Denies chills or fever(s) Eyes Eyes: Denies blurry vision ENT HEENT: Denies abnormal hearing Cardiovascular Cardiovascular: Reports orthopnea; Denies chest pain Respiratory/Chest Respiratory/Chest: Reports shortness of breath at rest; Denies cough or wheezing Gastrointestinal Gastrointestinal: Denies abdominal pain Genitourinary Genitourinary: Denies dysuria Musculoskeletal Musculoskeletal: Denies back pain Integumentary Integumentary: Denies wounds Neurologic Neurologic: Denies abnormal speech Psychiatric Psychiatric: Denies anxiety Vital Signs Vital Signs Vital Signs: 04/13/24 17:30 04/13/24 18:07 04/13/24 19:18 Temperature 97.2 F L Temperature Source Temporal Pulse Rate 54 L Respiratory Rate 18 Respiratory Effort Short of Breath Blood Pressure 145/67 H Blood Pressure Mean 93 Pulse Ox 95 98 Oxygen Delivery Method Room Air Nasal Cannula Nasal Cannula Oxygen Flow Rate (L/min) 2 2 04/13/24 19:22 04/13/24 20:29 Temperature 97.9 F Temperature Source Oral Pulse Rate 57 L 50 L Respiratory Rate 21 H 20 H Respiratory Effort Blood Pressure 145/75 H 143/77 H Blood Pressure Mean 98 99 Pulse Ox 98 94 Oxygen Delivery Method Nasal Cannula Nasal Cannula Oxygen Flow Rate (L/min) 2 Weight Weight: 201 lb 11.567 oz Body Mass Index (BMI) 26.7 Physical Exam Const alert and oriented x3 General Appearance: cooperative and well developed HEENT normocephalic and head/scalp atraumatic Eyes PERRL Neck no lymphadenopathy Lymph Lymphatic: no lymphadenopathy noted Resp Effort and Inspection: labored Auscultation: diminished lung sounds Cardio regular rate, regular rhythm, S1 normal heart sound and S2 normal heart sound Heart Sounds: murmur systolic III/ GI normal to inspection, nondistended, normoactive bowel sounds Skin General Skin Exam: no breakdown Neuro no focal motor deficits and no sensory deficits noted Psych thought process normal, cooperative and affect normal Appearance: appropriate Results Lab / Micro Data 04/13/24 18:05 04/13/24 18:05 Labs: Laboratory Results - last 24 hr 04/13/24 18:05: WBC 5.1, RBC 2.89 L, Hgb 8.0 L, Hct 27.6 L, MCV 95.5 H, MCH 27.7, MCHC 29.0 L, RDW Std Deviation 58.0 H, RDW Coeff of Rachelle 16.6 H, Plt Count 147 L, MPV 10.1, Immature Gran % (Auto) 0.600, Neut % (Auto) 74.4 H, Lymph % (Auto) 11.6 L, [place] % (Auto) 11.0 H, Eos % (Auto) 1.6, Baso % (Auto) 0.8, Absolute Neuts (auto) 3.8, Absolute Lymphs (auto) 0.59 L, Nucleated RBC % 0, Sodium 139, Potassium 4.1, Chloride 106, Carbon Dioxide 28.0, Anion Gap 5, BUN 31 H, Creatinine 1.52 H, Estim Creat Clear Calc 37.23, Est GFR (MDRD) Af Amer 56 L, Est GFR (MDRD) Non-Af 46 L, BUN/Creatinine Ratio 20.4 H, Glucose 110 H, Calcium 8.6, Troponin I High Sens 28 Imaging Radiology Impression Chest X-Ray 04/13/24 18:20 IMPRESSION: Increased opacification medial right lower lung concerning for pneumonia in the appropriate setting. CT could further evaluate as clinically indicated. Otherwise follow-up radiograph recommended after treatment to ensure resolution. Chronic right costophrenic angle atelectasis, scarring or trace effusion Unchanged cardiomegaly. Electronically Signed: Jarad Schaffer MD at 19:44 EDT , Assessment & Plan Assessment/Plan (1) Non-ischemic cardiomyopathy: (2) Atrial fibrillation: QUALIFIERS: Atrial fibrillation type: permanent Qualified Code(s): I48.21 - Permanent atrial fibrillation (3) CHF exacerbation: (4) Non-rheumatic aortic stenosis: (5) Thoracic aortic aneurysm without rupture: (6) Essential (primary) hypertension: (7) Dyslipidemia: PLAN: Plan 1 shortness of breath secondary to CHF exacerbation?admit patient to progressive year unit?oxygen therapy per protocol to maintain saturation greater than 90%, IV Lasix 40 mg twice daily, repeat CBC BMP and BNP in a.m. echocardiogram not necessary at this time due to recent echocardiogram earlier this month. 2. Dyslipidemia?continue statin therapy 3. Hypertension?continue routine home medications 4. Diabetes?continue routine insulin medications patient is not n.p.o. at this time 5. Atrial fibrillation?patient's rate is controlled is on routine aspirin therapy and due to low hemoglobin will not add anticoagulation at this time 6. DVT prophylaxis?SCDs 7. End-of-life care planning?patient wishes to be DNR CCA Charges/Coding Visit Charges Inpatient E&M: 65870 Init Hosp L2
[2024-04-13] MEDS: Furosemide 40 MG/4 ML Vial IV (22:08)
[2024-04-13] MEDS: Ferrous Sulfate 325 MG Tablet PO (23:16)
[2024-04-13] MEDS: Tamsulosin HCl 0.4 MG Capsule 0.8 MG PO (23:16)
[2024-04-13] MEDS: hydrALAZINE 50 MG Tablet PO (23:16)
[2024-04-13] MEDS: Magnesium Chloride 64 MG Delay Rel.Tablet PO (23:16)
[2024-04-13] MEDS: Gabapentin 400 MG Capsule PO (23:16)
[2024-04-13] MEDS: amLODIPine 10 MG Tablet PO (23:17)
[2024-04-13] MEDS: Latanoprost 0.005% 1 Bottle 1 DRP OPHTHALMIC (23:17)
[2024-04-13] MEDS: Pravastatin 40 MG Tablet PO (23:17)
[2024-04-13] MEDS: Insulin Glargine-YFGN 100 UNIT/ML Pen 8 UNIT SC (23:19)
[2024-04-14] VITALS (14 sets, daily range): BP systolic 115–148; BP diastolic 57–86; PULSE 43–76; RESP 16–22; TEMP 36.4–37.2; O2SAT 94–97
[2024-04-14 00:09] LABS: Bedside Glucose 113 mg/dL (74-106)
[2024-04-14 07:11] LABS: Absolute Lymphocyte Count 0.72 X10^3/uL (0.83-4.51); Absolute Neutrophil Count 2.8 X10^3/uL (2.0-7.7); Basophil# 0.05 X10^3/uL; Basophil% 1.2 % (0-1); Eosinophil# 0.11 X10^3/uL; Eosinophils% 2.6 % (0-5); Hematocrit 27.2 % (40-54); Hemoglobin 7.9 g/dL (13.0-16.5); Lymphocyte # 0.72 X10^3/ul (0.83-4.51); Lymphocyte % 16.9 % (19-41); Mean Corpuscular Hgb 27.7 pg (27.0-32.0); Mean Corpuscular Volume 95.4 fL (80-94); Monocyte# 0.59 X10^3/uL; Monocyte% 13.8 % (0-10); NRBC Flagged by Analyzer 0 % (0-5); Neutrophil # 2.79 X10^3/uL (2.7-7.7); Neutrophil % 65.3 % (47-70); Platelet Count 134 K/mm3 (150-450); RBC Distribution Width CV 16.4 % (11.6-14.6); RBC Distribution Width SD 57.6 fl (35.1-43.9); Red Blood Count 2.85 M/mm3 (4.6-6.2); White Blood Count 4.3 K/mm3 (4.4-11.0)
[2024-04-14 07:23] LABS: Anion Gap 5 (5-15); BUN 28 mg/dL (7-18); Calcium,Total 8.5 mg/dL (8.5-10.1); Chloride 107 mmol/L (98-107); EST Glomerular Filtration Rate 51 mL/min (>60); Est Glom Filt Rate - Afr Amer 61 mL/min (>60); Estimated Creatinine Clearance 40.43 ml/min; Glucose 83 mg/dL (74-106); Potassium 3.9 mmol/L (3.5-5.1); Sodium Level 140 mmol/L (136-145)
[2024-04-14 07:30] LABS: Magnesium 2.2 mg/dL (1.6-2.6); Phosphorus 3.3 mg/dL (2.5-4.9)
--- NOTE | 2024-04-14 07:35 | PN.HOSP_ITS ---
Reason for Visit Reason for Visit: Diagnoses Hyperlipidemia, unspecified (04/13/24) Essential (primary) hypertension (04/13/24) Nonrheumatic aortic (valve) stenosis (04/13/24) Other cardiomyopathies (04/13/24) Permanent atrial fibrillation (04/13/24) Heart failure, unspecified (04/13/24) Thoracic aortic aneurysm, without rupture (04/13/24) Objective Data Objective Data Vital Signs: Vital Signs Temp Pulse Resp BP Pulse Ox O2 Del Method O2 Flow Rate 97.5 F L 47 L 20 H 126/68 H 97 Nasal Cannula 2 04/14/24 05:14 04/14/24 05:14 04/14/24 05:14 04/14/24 05:14 04/14/24 05:14 04/14/24 05:14 04/14/24 05:14 Oxygen Flow Rate (L/min) 2 Oxygen Delivery Method Nasal Cannula Weight: 195 lb 1.745 oz Body Mass Index (BMI) 25.7 Intake & Output: Intake and Output for Last 24 Hours 04/12/24 04/13/24 04/14/24 23:59 23:59 23:59 Intake Total 120 / 120 Output Total 400 / 400 1200 / 1200 Balance -280 / -280 -1200 / -1200 Lab / Micro Data 04/14/24 06:20 04/14/24 06:20 Labs: Laboratory Results - last 24 hr 04/13/24 18:05: WBC 5.1, RBC 2.89 L, Hgb 8.0 L, Hct 27.6 L, MCV 95.5 H, MCH 27.7, MCHC 29.0 L, RDW Std Deviation 58.0 H, RDW Coeff of Rachelle 16.6 H, Plt Count 147 L, MPV 10.1, Immature Gran % (Auto) 0.600, Neut % (Auto) 74.4 H, Lymph % (Auto) 11.6 L, [place] % (Auto) 11.0 H, Eos % (Auto) 1.6, Baso % (Auto) 0.8, Absolute Neuts (auto) 3.8, Absolute Lymphs (auto) 0.59 L, Nucleated RBC % 0, Sodium 139, Potassium 4.1, Chloride 106, Carbon Dioxide 28.0, Anion Gap 5, BUN 31 H, Creatinine 1.52 H, Estim Creat Clear Calc 37.23, Est GFR (MDRD) Af Amer 56 L, Est GFR (MDRD) Non-Af 46 L, BUN/Creatinine Ratio 20.4 H, Glucose 110 H, Calcium 8.6, Troponin I High Sens 28 04/13/24 22:49: POC Glucose 113 H 04/14/24 06:20: WBC 4.3 L, RBC 2.85 L, Hgb 7.9 L, Hct 27.2 L, MCV 95.4 H, MCH 27.7, MCHC 29.0 L, RDW Std Deviation 57.6 H, RDW Coeff of Rachelle 16.4 H, Plt Count 134 L, MPV 10.0, Immature Gran % (Auto) 0.200, Neut % (Auto) 65.3, Lymph % (Auto) 16.9 L, [place] % (Auto) 13.8 H, Eos % (Auto) 2.6, Baso % (Auto) 1.2 H, Absolute Neuts (auto) 2.8, Absolute Lymphs (auto) 0.72 L, Nucleated RBC % 0, Sodium 140, Potassium 3.9, Chloride 107, Carbon Dioxide 28.0, Anion Gap 5, BUN 28 H, Creatinine 1.40 H, Estim Creat Clear Calc 40.43, Est GFR (MDRD) Af Amer 61, Est GFR (MDRD) Non-Af 51 L, BUN/Creatinine Ratio 20.0, Glucose 83, Calcium 8.5, Phosphorus 3.3, Magnesium 2.2 Radiography Diagnostic Testing: Radiology Impression Chest X-Ray 04/13/24 18:20 IMPRESSION: Increased opacification medial right lower lung concerning for pneumonia in the appropriate setting. CT could further evaluate as clinically indicated. Otherwise follow-up radiograph recommended after treatment to ensure resolution. Chronic right costophrenic angle atelectasis, scarring or trace effusion Unchanged cardiomegaly. Electronically Signed: Jarad Schaffer MD at 19:44 EDT , Physical Exam Narrative Seen and examined. Patient has cough for about a week with URI symptoms of nasal congestion sore throat and had to use nasal spray. No fever. He also said he brought some phlegm yellowish in color. He also had shortness of breath, dyspnea on exertion, PND and orthopnea, not taking diuretics. Physical exam General: Alert, Oriented x3, Cooperative HEENT: Hard of hearing, uses hearing aid atraumatic, PERRLA, EOMI, Normocephalic Oral: No Gingival or Mucosal Lesions/ Ulcerations Neck: Supple, No JVD, Negative Carotid Bruits Chest wall/Lungs: Air entry diminished in more in right lung base. Right basilar coarse crepitation Cardiovascular: A-fib with bradycardia, Heart rate in low 50s. Systolic murmur right second ICS Abdomen: Bowel Sounds Present, Soft, Non Tender, Non-Distended : No dysuria. No renal angle tenderness. No suprapubic tenderness. Extremities: Below-knee pitting edema, Capillary Refill Less than 3 Seconds Skin: Mild redness left knee possible from bruise/fall. No cellulitis Musculoskeletal: No Tenderness to Palpation of Joints or Extremities Neurological: Cranial nerves II-XII grossly intact, DTR 2+/4. No acute focal neurological deficit. Psych/Mental Status: Flat affect. Assessment & Plan Assessment/Plan (1) Atrial fibrillation: QUALIFIERS: Atrial fibrillation type: permanent Qualified Code(s): I48.21 - Permanent atrial fibrillation (2) CHF exacerbation: PLAN: Plan 89-year-old male was admitted with shortness of breath, cough with sputum production, URI symptoms, dyspnea on exertion on walking and PND/orthopnea. He does not wear oxygen. No hypoxia. Patient has history of heart failure not taking diuretic because he had to urinate too much. Patient denies history of COPD. He said he smoked less than half pack for 3 years when he was in the in 1950s 1. 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 Recently had echo 03/18/2024 showing EF 25%, stage III diastolic dysfunction, severe global hypokinesis. Normal RV size and systolic function. LA severely enlarged. Moderate TR, PASP 60 mmHg suggestive of moderate pulmonary hypertension. Mean AV gradient 15 mmHg with mild AI. BNP pending 2. Possible right middle lobe/lower lobe pneumonia, suspected aspiration: Patient has clinical symptoms of cough, utilize production, shortness of breath no chest pain. Portable chest x-ray initially reviewed and shows pulmonary congestion and opacification over the right medial border. Repeat chest x-ray PA and lateral was done and individually reviewed shows right small pleural effusion with consolidation possible pneumonia. Pneumonia workup ordered. Patient started on IV antibiotic Zosyn to cover GPC, GNR and anaerobes. Speech therapy ordered 3. Dyslipidemia?continue statin therapy 3. Hypertension?continue routine home medications 4. Diabetes melitis type II?continue routine insulin medications. Glucose is controlled 110 in BMP. Patient on Lantus 8 units subcutaneous at night at home. Accu-Cheks ACH cover with Humalog sliding scale and Lantus insulin 5. Chronic atrial fibrillation at home, patient not on anticoagulant agent but only on baby aspirin with bradycardia ?patient heart rate in low 50s. 6. Chronic severe normocytic normochromic anemia: Iron workup ordered. Stool for occult blood. Patient on ferrous sulfate at home. Hemoglobin is around 8.0. DVT prophylaxis?SCDs pharmacological prophy is contraindicated due to severe anemia and mild thrombocytopenia Advance directive/end-of-life care planning?patient wishes to be DNR CCA Interpretation Summary Normal LV size. The estimated ejection fraction is 25 %. There is severe global hypokinesis of the left ventricle. Stage 3 diastolic dysfunction. Mild focal aortic valve calcification. Mean aortic valve gradient 15 mmHg. Mild (1+) aortic valve insufficiency. Moderate pulmonary hypertension. Total time of the visit including total time spent in counseling or coordination of care, (more than 50% of the total time, spent in obtaining medical information from nurses and other ancillary care providers,explaining to the patient about labs, imaging, diagnosis and management of active complex medical conditions), detailed history, management of multiple active medical problems including CHF exacerbation, pneumonia, severe anemia and chronic A-fib bradycardia, review of labs and imaging is 40 minutes. Laboratory Results 04/13/24 18:05: WBC 5.1, RBC 2.89 L, Hgb 8.0 L, Hct 27.6 L, MCV 95.5 H, MCH 27.7, MCHC 29.0 L, RDW Std Deviation 58.0 H, RDW Coeff of Rachelle 16.6 H, Plt Count 147 L, MPV 10.1, Immature Gran % (Auto) 0.600, Neut % (Auto) 74.4 H, Lymph % (Auto) 11.6 L, [place] % (Auto) 11.0 H, Eos % (Auto) 1.6, Baso % (Auto) 0.8, Absolute Neuts (auto) 3.8, Absolute Lymphs (auto) 0.59 L, Nucleated RBC % 0, Sodium 139, Potassium 4.1, Chloride 106, Carbon Dioxide 28.0, Anion Gap 5, BUN 31 H, Creatinine 1.52 H, Estim Creat Clear Calc 37.23, Est GFR (MDRD) Af Amer 56 L, Est GFR (MDRD) Non-Af 46 L, BUN/Creatinine Ratio 20.4 H, Glucose 110 H, Calcium 8.6, Troponin I High Sens 28, B-Natriuretic Peptide Pending 04/13/24 22:49: POC Glucose 113 H 04/14/24 06:20: WBC 4.3 L, RBC 2.85 L, Hgb 7.9 L, Hct 27.2 L, MCV 95.4 H, MCH 27.7, MCHC 29.0 L, RDW Std Deviation 57.6 H, RDW Coeff of Rachelle 16.4 H, Plt Count 134 L, MPV 10.0, Immature Gran % (Auto) 0.200, Neut % (Auto) 65.3, Lymph % (Auto) 16.9 L, [place] % (Auto) 13.8 H, Eos % (Auto) 2.6, Baso % (Auto) 1.2 H, Absolute Neuts (auto) 2.8, Absolute Lymphs (auto) 0.72 L, Nucleated RBC % 0, Sodium 140, Potassium 3.9, Chloride 107, Carbon Dioxide 28.0, Anion Gap 5, BUN 28 H, Creatinine 1.40 H, Estim Creat Clear Calc 40.43, Est GFR (MDRD) Af Amer 61, Est GFR (MDRD) Non-Af 51 L, BUN/Creatinine Ratio 20.0, Glucose 83, Calcium 8.5, Phosphorus 3.3, Magnesium 2.2, B-Natriuretic Peptide Pending Charges/Coding Visit Charges Inpatient E&M: 22166 Subs Hosp L3
[2024-04-14] MEDS: Cyanocobalamin 500 MCG Tablet 1000 MCG PO (07:38)
[2024-04-14] MEDS: metFORMIN (XR) 500 MG Tablet PO (07:38)
[2024-04-14] MEDS: Folic Acid 1 MG Tablet PO (07:39)
[2024-04-14] MEDS: Ferrous Sulfate 325 MG Tablet PO (07:39)
[2024-04-14] MEDS: Cholecalciferol (VIT D3) 25 MCG TABLET (1,000 UNITS) PO (07:39)
[2024-04-14] MEDS: LINAGLIPTIN 5 MG TABLET PO (07:39)
[2024-04-14] MEDS: Potassium Chloride Oral Tablet 20 MEQ PO (07:39)
[2024-04-14] MEDS: Magnesium Chloride 64 MG Delay Rel.Tablet PO ×2 (07:40→21:03)
[2024-04-14] MEDS: Menthol/Lanolin/Calamine/Znox 113 GM Tube 1 APPLIC TOPICAL ×2 (07:41→21:06)
--- NOTE | 2024-04-14 07:50 | RAD_ITS ---
HISTORY: opacification over the right middle lobe. TECHNIQUE: XR Chest 2 Views. COMPARISON: Prior day. FINDINGS: LINES/TUBES: None. CARDIOMEDIASTINAL BORDERS: Stable moderate enlargement of the cardiac silhouette. LUNGS: Persistent atelectasis or pneumonia in the right lung base and right midlung. PLEURA: Mild right pleural effusion. RAD/Chest PA and Lateral IMPRESSION: No significant interval change in mild right pleural effusion with atelectasis or pneumonia in the right mid to lower lung. Electronically Signed: Sunshine Thrasher MD at 8:07 EDT ,
[2024-04-14] MEDS: Senna/Docusate Sodium 1 Tablet 2 TABLET PO ×2 (09:29→21:05)
[2024-04-14] MEDS: Polyethylene Glycol 3350 17 GM PACKET PO (09:30)
[2024-04-14] MEDS: guaiFENesin/D-Methorphan TAB.SR.12H 2 TABLET PO ×2 (09:30→21:03)
[2024-04-14] MEDS: Furosemide 40 MG/4 ML Vial IV ×2 (09:30→18:32)
[2024-04-14] MEDS: Piperacil/Tazobactam 3.375 GM in 0.9% Normal Saline (50mL MB+) 50 ML IV ×3 (09:30→21:11)
[2024-04-14 09:37] LABS: Ferritin 25 ng/mL (26-388); Iron 62 ug/dL (65-175); Iron Binding Capacity,Total 307 ug/dL (250-450); PERCENT IRON SATURATION 20.2 % (15.0-55.0)
[2024-04-14 09:45] LABS: Platelet Count 139 K/mm3 (150-450); RET-HE 25.8 pg (30-35); Reticulocyte Count 2.91 % (0.5-1.5)
[2024-04-14 11:20] LABS: Bedside Glucose 109 mg/dL (74-106)
[2024-04-14 11:54] LABS: M R Staph aureus DNA By PCR Negative (Negative); Probe Check PASS; Specimen Processing Control PASS
[2024-04-14 12:10] LABS: BNP,B-Type NATRIURETIC PEPTIDE 816.1 pg/mL (0-100)
[2024-04-14 12:21] LABS: Vitamin B12 1026 pg/mL (211-911)
[2024-04-14] MEDS: Ipratropium/Albuterol Sulfate 3 ML AMPUL.NEB INHALATION ×2 (13:02→19:04)
--- NOTE | 2024-04-14 14:53 | CASEMGMT ---
Social Work Pt's Healthcare POA is scanned into [employer], with the LW provision initialed. Pt has Veda listed as POA, Daphnehemant Gutierrez as the alternate. BLAYNE Ludwgi
--- NOTE | 2024-04-14 15:52 | CASEMGMT ---
Addendum entered by Florencio Toledo 04/14/24 16:03: Referral sent to [facility] at this time via [facility]. DC accountant assistant and DIRECTOR OF PATIENT CARE CM updated and aware. Original Note: Readmission Note: Index: 03/18-03/20/24. Dx: Hypoxia, HF Exacerbation Readmission: 04/13/24. Dx: CHF Exacerbation Pt with a history of hypothyroidism, PVD, CHF, HTN, CKD stage III, Dyslipidemia, and DM type II was admitted on the above-noted dates for the corresponding dx?s. On index admission, the pt had an echocardiogram done that showed EF of 25%. The pt was then prescribed to take 40mg of Lasix BID at home. The pt was also set up with HH through [facility] before JEFF. YONIS ELLIS to pt room at this time. Pt family is at the bedside. The pt and the patient's daughter state that the pt has not been taking his Lasix as prescribed due to frequent urination. The pt daughter also states that the HHC never came to the pt home. Pt daughter states that the C company called the pt to set up a meeting time and the pt then refused their services at that time. Pt then arrived at [facility] ER with SOB that started 3 days SPECIAL DIET COOK. Moving forward, the pt states that he plans to take his Lasix as ordered. The pt daughter bought the pt a urinary collection system so the pt does not have to get up to the bathroom as much to urinate. The pt is also agreeable to having skilled HHC after this stay. Pt denies wanting to see a list of local in-network [facility] agencies and states that he wishes to go through [facility] again. Pt daughter agrees with this plan. Pt is also on additional O2 currently. Pt educated that CM will follow for potential home O2 needs. A verbal list of local in-network DME companies provided to the pt and the pt chose [employer] for any homegoing oxygen needs. PLAN: Home with HHC, potential oxygen, & urinary collection device to help ensure the pt takes his Lasix as prescribed. CM to follow.
[2024-04-14 16:10] LABS: Bedside Glucose 139 mg/dL (74-106)
--- NOTE | 2024-04-14 16:17 | CHAPLAIN ---
Type of Pastoral Visit _x__ Initial Visit ___ Follow-up Visit ___ On-call Visit ___ General Patient Visit ___ Spiritual Assessment ___ Family Conference ___ Bereavement ___ Rapid Response ___ Code Blue ___ Other (describe below) Pastoral Care Referral From _x__ Patient ___ Family ___ Nurse ___ Physician ___ Marble Finisher ___ Senior It Business Analyst ___ Other (describe below) Sacrament/Intervention _x__ Active listening ___ Anointing ___ Yazidism ___ Bereavement ___ Communion _x__ Radhika exploration ___ ___ Life review _x__ Prayer ___ Reconciliation ___ Sacrament of Sick _x__ Supportive presence ___ Wedding ___ Other (describe below) Pastoral Comments patient was seen in a previous and recent admission; pt admits that he was not taking his medications as he thought he was supposed to do; pt acknowledges that he is old and has lived longer than he expected; pt speaks of being tired and that he is ready to if that is God's will; spouse and daughter come into the room and join in the conversation; daughter requests prayers for another relative with health needs; prayer and presence given
--- NOTE | 2024-04-14 17:51 | CON.PCM.GI_ITS ---
HPI Consult Data Date of Consult: 04/15/24 HPI Narrative Reason for Consultation: Esophageal dysphagia HPI Narrative: JASON STANLEY, is a 89 M who presented to the emergency room with chief complaint of shortness of breath. Onset of symptoms began approximately 3 days ago the patient is experience worsening shortness of breath. Patient denies fever or chills, chest pain and/or nausea or vomiting. Patient has significant past medical history of congestive heart failure was admitted earlier this month with an echocardiogram done at that time showing an ejection fraction of 25%. Patient has been reluctant to take his Lasix as prescribed due to excessive urination. Patient also expressed that he is DNR Comfort Care arrest. Patient had does not routinely wear oxygen at home and is hypoxic here in the emergency room and requiring oxygen to maintain his saturation above 90%. He will be admitted to the progressive care unit for exacerbation of congestive heart failure.. Patient will be managed with diuretic therapy and monitored for progression of his hypoxia. He was diagnosed with acute on chronic combined systolic and diastolic CHF exacerbation. He recently had echo 03/18/2024 showing EF 25%, stage III diastolic dysfunction, severe global hypokinesis. Normal RV size and systolic function. LA severely enlarged. Moderate TR, PASP 60 mmHg suggestive of moderate pulmonary hypertension. Mean AV gradient 15 mmHg with mild AI. BNP pending He also was given a diagnosis of possible right middle lobe/lower lobe pneumonia, suspected aspiration. Repeat chest x-ray PA and lateral was done and individually reviewed shows right small pleural effusion with consolidation possible pneumonia. Pneumonia workup ordered. Patient started on IV antibiotic Zosyn to cover GPC, GNR and anaerobes. Speech therapy ordered. Speech therapy saw him and identified as having esophageal dysphagia. I was consulted for evaluation of his esophageal dysphagia. [facility] Medical History Hypothyroidism Non-smoker Peripheral vascular disease Prostate cancer Lumbar stenosis Gout DDD (degenerative disc disease) Carotid artery stenosis Chronic diastolic (congestive) heart failure Non-rheumatic aortic stenosis Atherosclerosis of coronary artery of [place] heart without angina pectoris Secondary pulmonary arterial hypertension Essential (primary) hypertension Left bundle branch block Stool guaiac positive Iron deficiency anemia Personal history of colonic polyps History of malignant neoplasm of colon Dysphasia Chronic kidney disease, stage III (moderate) Thoracic aortic aneurysm without rupture Colon cancer, ascending Dyslipidemia Type II diabetes mellitus Home Medications ?Medication ?Instructions ?Recorded ?Last Taken ?Type pravastatin 40 mg tablet 40 mg PO QHS cholesterol 05/14/16 03/17/24 History probenecid 500 mg tablet 500 mg PO DAILY gout 05/14/16 03/18/24 History aspirin 81 mg tablet,delayed 81 mg PO DAILY@0800 heart health 07/16/16 03/18/24 History release cholecalciferol (vitamin D3) 25 1,000 unit PO DAILY vitamin 07/16/16 03/18/24 History mcg (1,000 unit) tablet cyanocobalamin (vitamin B-12) 1,000 mcg PO DAILY supplement 07/16/16 04/12/24 History 1,000 mcg tablet metformin 500 mg 24 hr 500 mg PO DAILY diabetes 07/16/16 03/18/24 History tablet,extended release (gastric retention) losartan 100 mg tablet (Cozaar) 150 mg PO DAILY BP 06/25/19 03/18/24 History sitagliptin phosphate 50 mg tablet 50 mg PO DAILY diabetes 06/25/19 03/18/24 History tamsulosin 0.4 mg capsule (Flomax) 0.8 mg PO QHS urination 06/25/19 03/17/24 History docusate sodium 100 mg capsule 100 mg PO BID PRN sool softener 09/11/19 Unknown History (Colace) ferrous sulfate 325 mg (65 mg 325 mg PO BID iron supplement 09/11/19 04/12/24 History iron) tablet (Feosol) folic acid 400 mcg tablet 800 mcg PO DAILY vitamin 09/11/19 04/12/24 History insulin glargine 100 unit/mL (3 8 unit subcut QHS diabetes 09/11/19 03/17/24 History mL) subcutaneous pen amlodipine 10 mg tablet See Rx Instructions .Route 03/18/24 03/17/24 History .COMPLEX BP blood sugar diagnostic (True 03/18/24 Unknown History Metrix Glucose Test Strip) gabapentin 400 mg capsule 400 mg PO QHS nerve pain 03/18/24 03/18/24 History latanoprost 0.005 % eye drops 1 drp ophthalmic (eye) QHS eye 03/18/24 03/17/24 History health magnesium chloride 71.5 mg 71.5 mg PO BID supplement 03/18/24 03/18/24 History (magnesium chloride) tablet,delayed release pen needle, diabetic 31 gauge x 03/18/24 Unknown History 3/16 (Droplet Pen Needle) potassium chloride 20 mEq 20 meq PO DAILY supplement 03/18/24 03/18/24 History tablet,extended release(part/cryst) furosemide 40 mg tablet (Lasix) 40 mg PO BIDCM #120 tabs 03/20/24 04/12/24 Rx hydralazine 50 mg tablet 50 mg PO 4X/DAY 04/02/24 Unknown History Allergy/AdvReac Type Severity Reaction Status Date / Time Milk Containing Products AdvReac NEEDS Verified 04/13/24 17:29 (Dairy) (Milk Containing FOLLOW-UP Products) quinapril (From Accupril) AdvReac Other Verified 04/13/24 17:29 Family History Mother Colon cancer Heart disease Hypertension CAD (coronary artery disease) Father Cancer prostate CVA (cerebral vascular accident) CAD (coronary artery disease) Brother CAD (coronary artery disease) CABG Brother CAD (coronary artery disease) CABG Surgical History History of left heart catheterization (07/2001) H/O colectomy S/P colonoscopy S/P cataract extraction Status post colectomy Social History household members: spouse Smoking Status: Former smoker how long ago did patient quit smokin years ago alcohol intake: never substance use type: does not use ROS Constitutional Constitutional: Reports fatigue; Denies chills or fever(s) Eyes Eyes: Denies blurry vision ENT HEENT: Denies abnormal hearing Cardiovascular Cardiovascular: Reports orthopnea; Denies chest pain Respiratory/Chest Respiratory/Chest: Reports shortness of breath at rest; Denies cough or wheezing Gastrointestinal Gastrointestinal: Denies abdominal pain Genitourinary Genitourinary: Denies dysuria Musculoskeletal Musculoskeletal: Denies back pain Integumentary Integumentary: Denies wounds Neurologic Neurologic: Denies abnormal speech Psychiatric Psychiatric: Denies anxiety Physical Exam Narrative Physical exam General: Alert, Oriented x3, Cooperative HEENT: Hard of hearing, uses hearing aid atraumatic, PERRLA, EOMI, Normocephalic Oral: No Gingival or Mucosal Lesions/ Ulcerations Neck: Supple, No JVD, Negative Carotid Bruits Chest wall/Lungs: Air entry diminished in more in right lung base. Right basilar coarse crepitation Cardiovascular: A-fib with bradycardia, Heart rate in low 50s. Systolic murmur right second ICS Abdomen: Bowel Sounds Present, Soft, Non Tender, Non-Distended : No dysuria. No renal angle tenderness. No suprapubic tenderness. Extremities: Below-knee pitting edema, Capillary Refill Less than 3 Seconds Skin: Mild redness left knee possible from bruise/fall. No cellulitis Musculoskeletal: No Tenderness to Palpation of Joints or Extremities Neurological: Cranial nerves II-XII grossly intact, DTR 2+/4. No acute focal neurological deficit. Psych/Mental Status: Flat affect. Lab / Micro Data 04/15/24 06:20 04/15/24 06:20 Labs: Laboratory Results - last 24 hr 04/14/24 21:02: POC Glucose 148 H 04/15/24 06:20: WBC 4.6, RBC 2.70 L, Hgb 7.6 L, Hct 26.1 L, MCV 96.7 H, MCH 28.1, MCHC 29.1 L, RDW Std Deviation 57.9 H, RDW Coeff of Rachelle 16.3 H, Plt Count 118 L, MPV 9.9, Immature Gran % (Auto) 0.400, Neut % (Auto) 66.7, Lymph % (Auto) 16.2 L, [place] % (Auto) 14.1 H, Eos % (Auto) 1.7, Baso % (Auto) 0.9, Absolute Neuts (auto) 3.1, Absolute Lymphs (auto) 0.75 L, Nucleated RBC % 0, Sodium 141, Potassium 3.9, Chloride 105, Carbon Dioxide 30.0, Anion Gap 6, BUN 26 H, C reatinine 1.47 H, Estim Creat Clear Calc 38.50, Est GFR (MDRD) Af Amer 58 L, Est GFR (MDRD) Non-Af 48 L, BUN/Creatinine Ratio 17.7, Glucose 98, Calcium 8.6, Triglycerides 58, Cholesterol 76, LDL Cholesterol 33, VLDL Cholesterol 12, HDL Cholesterol 31 L 04/15/24 06:32: POC Glucose 92 04/15/24 12:48: POC Glucose 133 H 04/15/24 15:54: POC Glucose 93 Assessment & Plan Assessment/Plan (1) Atrial fibrillation: QUALIFIERS: Atrial fibrillation type: permanent Qualified Code(s): I48.21 - Permanent atrial fibrillation (2) CHF exacerbation: PLAN: Plan 89-year-old male was admitted with shortness of breath, cough with sputum production, URI symptoms, dyspnea on exertion on walking and PND/orthopnea. Possibly secondary to commune acquired pneumonia with some intermittent aspiration pneumonia. He should undergo an upper endoscopy to evaluate his upper GI tract. He also is anemic with a hemoglobin of 8. He has a chronic severe normocytic normochromic anemia. He was explained alternatives, risk, benefits including not withstanding bleeding, infection, sepsis, perforation, need for emergent urgent . Have an ASA of 3. Charges/Coding Visit Charges Inpatient E&M: 15564 Init Hosp L3
[2024-04-14] MEDS: Gabapentin 400 MG Capsule PO (21:03)
[2024-04-14] MEDS: Insulin Glargine-YFGN 100 UNIT/ML Pen 6 UNIT SC (21:03)
[2024-04-14] MEDS: Tamsulosin HCl 0.4 MG Capsule 0.8 MG PO (21:04)
[2024-04-14] MEDS: hydrALAZINE 25 MG Tablet PO (21:05)
[2024-04-14] MEDS: Pravastatin 40 MG Tablet PO (21:05)
[2024-04-14] MEDS: Latanoprost 0.005% 1 Bottle 1 DRP OPHTHALMIC (21:05)
[2024-04-14 22:13] LABS: Bedside Glucose 148 mg/dL (74-106)
[2024-04-15] VITALS (9 sets, daily range): BP systolic 127–146; BP diastolic 60–85; PULSE 41–58; RESP 16–20; TEMP 36.4; O2SAT 94–96; BMI 25.8
[2024-04-15] MEDS: Ipratropium/Albuterol Sulfate 3 ML AMPUL.NEB INHALATION (01:48)
--- NOTE | 2024-04-15 04:03 | PCM.HOSP.N ---
Hospitalist Note Patient with notable run of VT, asymptomatic, while sleeping. 04/14/24 labs reviewed with normal K and normal mag levels. Will continue to closely monitor.
[2024-04-15] MEDS: Piperacil/Tazobactam 3.375 GM in 0.9% Normal Saline (50mL MB+) 50 ML IV ×3 (06:33→22:52)
[2024-04-15 06:47] LABS: Absolute Lymphocyte Count 0.75 X10^3/uL (0.83-4.51); Absolute Neutrophil Count 3.1 X10^3/uL (2.0-7.7); Basophil# 0.04 X10^3/uL; Basophil% 0.9 % (0-1); Eosinophil# 0.08 X10^3/uL; Eosinophils% 1.7 % (0-5); Hematocrit 26.1 % (40-54); Hemoglobin 7.6 g/dL (13.0-16.5); Lymphocyte # 0.75 X10^3/ul (0.83-4.51); Lymphocyte % 16.2 % (19-41); Mean Corp Hgb Conc 29.1 g/dL (32-36); Mean Corpuscular Hgb 28.1 pg (27.0-32.0); Mean Corpuscular Volume 96.7 fL (80-94); Mean Platelet Vol. 9.9 fl (6.2-12.0); Monocyte# 0.65 X10^3/uL; Monocyte% 14.1 % (0-10); NRBC Flagged by Analyzer 0 % (0-5); Neutrophil # 3.08 X10^3/uL (2.7-7.7); Neutrophil % 66.7 % (47-70); Platelet Count 118 K/mm3 (150-450); RBC Distribution Width CV 16.3 % (11.6-14.6); RBC Distribution Width SD 57.9 fl (35.1-43.9); White Blood Count 4.6 K/mm3 (4.4-11.0)
[2024-04-15 06:52] LABS: Bedside Glucose 92 mg/dL (74-106)
[2024-04-15 08:24] LABS: Anion Gap 6 (5-15); BUN 26 mg/dL (7-18); BUN/Creat Ratio 17.7 RATIO (10-20); Calcium,Total 8.6 mg/dL (8.5-10.1); Chloride 105 mmol/L (98-107); Cholesterol 76 mg/dL (200); Creatinine, Serum 1.47 mg/dL (0.70-1.30); EST Glomerular Filtration Rate 48 mL/min (>60); Est Glom Filt Rate - Afr Amer 58 mL/min (>60); Glucose 98 mg/dL (74-106); High Density Lipoprotein 31 mg/dL; Potassium 3.9 mmol/L (3.5-5.1); Sodium Level 141 mmol/L (136-145); Triglycerides 58 mg/dL; Very Low Density Lipoprotein 12 mg/dL (5-40)
[2024-04-15] MEDS: Potassium Chloride Oral Tablet 20 MEQ PO (09:34)
[2024-04-15] MEDS: Magnesium Chloride 64 MG Delay Rel.Tablet PO ×2 (09:35→22:46)
[2024-04-15] MEDS: guaiFENesin/D-Methorphan TAB.SR.12H 2 TABLET PO ×2 (09:35→22:46)
[2024-04-15] MEDS: Folic Acid 1 MG Tablet PO (09:35)
[2024-04-15] MEDS: Senna/Docusate Sodium 1 Tablet 2 TABLET PO ×2 (09:36→22:47)
[2024-04-15] MEDS: Menthol/Lanolin/Calamine/Znox 113 GM Tube 1 APPLIC TOPICAL ×2 (09:36→22:48)
[2024-04-15] MEDS: hydrALAZINE 25 MG Tablet PO ×3 (09:36→22:45)
[2024-04-15] MEDS: Cyanocobalamin 500 MCG Tablet 1000 MCG PO (09:37)
[2024-04-15] MEDS: LINAGLIPTIN 5 MG TABLET PO (09:37)
[2024-04-15] MEDS: Cholecalciferol (VIT D3) 25 MCG TABLET (1,000 UNITS) PO (09:37)
[2024-04-15] MEDS: Losartan Potassium 100 MG Tablet PO (12:52)
--- NOTE | 2024-04-15 12:56 | PN.HOSP_ITS ---
Reason for Visit Reason for Visit: Diagnoses Hyperlipidemia, unspecified (04/13/24) Essential (primary) hypertension (04/13/24) Nonrheumatic aortic (valve) stenosis (04/13/24) Other cardiomyopathies (04/13/24) Permanent atrial fibrillation (04/13/24) Heart failure, unspecified (04/13/24) Thoracic aortic aneurysm, without rupture (04/13/24) Subjective Subjective No acute events overnight. Patient seen at bedside this morning, and daughter present. Patient sitting up comfortably in bedside chair, in no acute distress. Patient is hard of hearing but otherwise alert and oriented x 3. He denies any shortness of breath at rest. Does continue to have shortness of breath with exertion but this is improved from admission. He otherwise denies any chest pain, fevers or chills, abdominal pain, lightheadedness or dizziness. Denies any other acute pain or discomfort. Patient notably has had multiple short runs of V. tach over the past 24 hours but has been asymptomatic with these runs. Patient prefers not to be in the hospital and would like to go home when possible. He also reported noncompliance with home Lasix due to difficulty with frequent urination, and he has refused AICD placement to this point as he does not want to leave [place] to have the procedure done. However, and daughter are understanding of his need to be in the hospital and agreeable to continuing current management for him. Objective Data Objective Data Vital Signs: Vital Signs Temp Pulse Resp BP Pulse Ox O2 Del Method O2 Flow Rate 97.5 F L 55 L 16 138/62 H 94 Nasal Cannula 2 04/15/24 09:31 04/15/24 09:36 04/15/24 09:31 04/15/24 09:36 04/15/24 09:31 04/15/24 09:31 04/15/24 11:59 Oxygen Flow Rate (L/min) 2 Oxygen Delivery Method Nasal Cannula Weight: 88.5 kg Body Mass Index (BMI) 25.7 Intake & Output: Intake and Output for Last 24 Hours 04/13/24 04/14/24 04/15/24 23:59 23:59 23:59 Intake Total 120 / 120 475 / 475 100 / 100 Output Total 400 / 400 2325 / 2525 800 / 800 Balance -280 / -280 -1850 / -2050 -700 / -700 Lab / Micro Data 04/15/24 06:20 04/15/24 06:20 Labs: Laboratory Results - last 24 hr 04/14/24 15:49: POC Glucose 139 H 04/14/24 21:02: POC Glucose 148 H 04/15/24 06:20: WBC 4.6, RBC 2.70 L, Hgb 7.6 L, Hct 26.1 L, MCV 96.7 H, MCH 28.1, MCHC 29.1 L, RDW Std Deviation 57.9 H, RDW Coeff of Rachelle 16.3 H, Plt Count 118 L, MPV 9.9, Immature Gran % (Auto) 0.400, Neut % (Auto) 66.7, Lymph % (Auto) 16.2 L, [place] % (Auto) 14.1 H, Eos % (Auto) 1.7, Baso % (Auto) 0.9, Absolute Neuts (auto) 3.1, Absolute Lymphs (auto) 0.75 L, Nucleated RBC % 0, Sodium 141, Potassium 3.9, Chloride 105, Carbon Dioxide 30.0, Anion Gap 6, BUN 26 H, C reatinine 1.47 H, Estim Creat Clear Calc 38.50, Est GFR (MDRD) Af Amer 58 L, Est GFR (MDRD) Non-Af 48 L, BUN/Creatinine Ratio 17.7, Glucose 98, Calcium 8.6, Triglycerides 58, Cholesterol 76, LDL Cholesterol 33, VLDL Cholesterol 12, HDL Cholesterol 31 L 04/15/24 06:32: POC Glucose 92 Micro: Microbiology 04/14/24 10:15 Mucosa - Throat Streptococcus pyogenes (PCR) - Final 04/14/24 10:15 Mucosa - Nose SARS-CoV-2, Influenza & RSV (PCR) - Final 04/14/24 10:12 Urine, Clean Catch Legionella Antigen - Final 04/14/24 10:12 Urine, Clean Catch Streptococcus pneumoniae Antigen (M - Final Physical Exam Const alert, oriented x3, no apparent distress and average body habitus Constitutional Narrative: Elderly male, mildly fatigued appearing, otherwise sitting up comfortably in bedside chair, conversing normally, in no acute distress. General Appearance: cooperative and comfortable HEENT normocephalic, head/scalp atraumatic, hearing grossly normal bilaterally and nasal mucous membranes and turbinates normal Eyes PERRL, EOMs intact bilaterally and conjunctivae normal Neck full ROM Chest inspection of chest normal Resp normal respiratory effort and no use of accessory muscles Resp Narrative: Mildly decreased breath sounds bilaterally throughout. No wheezing or crackles noted. Breathing comfortably on 2 L nasal cannula at rest. Cardio no murmurs and peripheral pulses 2+ throughout Cardio Narrative: A-fib with slow ventricular response. GI normal to inspection, nondistended, normoactive bowel sounds, soft to palpation, non-tender and non-distended Back/Spine normal ROM Extremity normal to inspection and full ROM Extremity Narrative: +1-2 bilateral lower extremity edema. Skin no rashes or lesions noted Neuro no focal motor deficits and no sensory deficits noted Speech: speech normal Psych mental status grossly normal Assessment & Plan Assessment/Plan (1) Nonsustained ventricular tachycardia: (2) Non-ischemic cardiomyopathy: (3) Atrial fibrillation: QUALIFIERS: Atrial fibrillation type: permanent Qualified Code(s): I48.21 - Permanent atrial fibrillation (4) CHF exacerbation: QUALIFIERS: Heart failure type: unspecified Qualified Code(s): I 50.9 - Heart failure, unspecified PLAN: Plan Patient is an 89-year-old male who presented to [facility] ED on 04/13/2024 with worsening shortness of breath. 1. Acute exacerbation of HFrEF with mild hypoxia, recently diagnosed nonischemic cardiomyopathy ? Cardiology following. Most recent echo on 03/18 showed EF 25%, stage II diastolic dysfunction, severe global hypokinesis, severely enlarged LA, moderate pulmonary hypertension. Per cardiology, suspected that new nonischemic cardiomyopathy was secondary to paroxysmal A-fib with slow ventricular response. Exacerbation presumed secondary to diuretic nonadherence at home. Improving with IV Lasix 40 mg twice daily, continue this for now. Will likely be okay to de-escalate to p.o. Lasix in next 1 to 2 days. Continue to monitor BMP and urine output daily. 2. Permanent A-fib with slow ventricular response; Nonsustained V tach ? Cardiology following as above. Rate has consistently been in the 40s to 50s since admission, stable. Not on any rate controlling agents. Not on anticoagulation due to fall risk. Has had multiple runs of nonsustained V. tach during this hospitalization. Electrolytes stable on multiple checks. Per cardiology, patient is high risk for runs of V. tach given nonischemic cardiomyopathy as noted above. Cardiology recommending AICD placement but patient has been hesitant to pursue this option to this point. Cardiology has discussed possible pacemaker placement with him as well. Okay to monitor off any medication for now but if patient has more frequent sustained runs of V. tach, can consider starting amiodarone. 3. Concern for pneumonia ? Chest x-ray on admit with increased opacification in medial right lower lung concerning for possible pneumonia along with cardiomegaly stable from previous. Repeat chest x-ray on 04/14 stable. Infectious workup negative. No clinical signs of pneumonia. Antibiotics discontinued on 04/15. Continue to monitor. 4. Chronic iron deficiency anemia ? Baseline hemoglobin around 7.5-8.5. Hemoglobin stable at baseline. Repeat iron studies on 04/14 showed continued significant iron deficiency. Will treat with 2 doses of IV iron while inpatient. Monitor daily CBC. Chronic medical conditions: ? Hypertension: Continue home losartan, amlodipine and hydralazine. ? Hyperlipidemia: Continue home statin. ? Type 2 diabetes mellitus: Home regimen of insulin glargine 8 units at night, metformin 500 mg daily, Sitagliptin 50 mg daily. Treating with Lantus 6 units at night plus sliding scale insulin with meals as needed while inpatient, adjust as needed. ? BPH with obstructive symptoms: Stable. Continue home Flomax. ? Neuropathy: Continue home gabapentin. ? History of gout: Continue home probenecid. DVT prophylaxis: SCDs CODE STATUS: DNR CCA, DNI Expected disposition: Home, 2 to 3 days Total clinical time spent by myself addressing the patient's medical issues, reviewing all the data, and collaborating with patient's care team: 35 minutes. Charges/Coding Visit Charges Inpatient E&M: 70292 Subs Hosp L2
[2024-04-15] MEDS: Furosemide 40 MG/4 ML Vial IV (15:56)
[2024-04-15 16:50] LABS: Bedside Glucose 133 mg/dL (74-106)
[2024-04-15 17:07] LABS: Bedside Glucose 93 mg/dL (74-106)
--- NOTE | 2024-04-15 19:30 | CON.PCM.CA_ITS ---
Assessment & Plan Assessment/Plan (1) Non-ischemic cardiomyopathy: PLAN: Continue IV Lasix at this time. He is not on a beta-lonny due to baseline bradycardia. If he continues to refuse AICD, we could consider pacemaker placement to optimize medical treatment for his nonischemic cardiomyopathy. This had been discussed in the past with the patient and he was okay with getting a pacemaker. However he was asked to consider ICD as well. (2) CHF exacerbation: QUALIFIERS: Heart failure type: unspecified Qualified Code(s): I 50.9 - Heart failure, unspecified (3) Atrial fibrillation: QUALIFIERS: Atrial fibrillation type: permanent Qualified Code(s): I48.21 - Permanent atrial fibrillation (4) Nonsustained ventricular tachycardia: PLAN: If patient ends up getting an ICD or pacemaker then we can start him on a beta-lonny for this. If not we can consider amiodarone if he continues to have long runs of nonsustained V. tach HPI Consult Data Date of Consult: 04/15/24 HPI Narrative Reason for Consultation: CHF HPI Narrative: JASON STANLEY, is a 89 M who presents with shortness of breath. Patient was supposed to be on Lasix twice daily but it appears that he has been noncompliant with it. Patient was started on IV Lasix and has shortness of breath is currently better. He has had runs of nonsustained V. tach on telemetry. He also is bradycardic. AICD was apparently discussed with him in the office but patient did not want to have it as he did not want to leave the [place] area to have it done. This was discussed with him again today. Patient said he will think about it. Review of systems: All systems reviewed. All else is negative except that in HPI [facility] Medical History (Updated 04/15/24 @ 19:[address] Rahat Weiner MD) Hypothyroidism Non-smoker Peripheral vascular disease Prostate cancer Lumbar stenosis Gout DDD (degenerative disc disease) Carotid artery stenosis Chronic diastolic (congestive) heart failure Non-rheumatic aortic stenosis Atherosclerosis of coronary artery of [place] heart without angina pectoris Secondary pulmonary arterial hypertension Essential (primary) hypertension Left bundle branch block Stool guaiac positive Iron deficiency anemia Personal history of colonic polyps History of malignant neoplasm of colon Dysphasia Chronic kidney disease, stage III (moderate) Thoracic aortic aneurysm without rupture Colon cancer, ascending Dyslipidemia Type II diabetes mellitus Home Medications ?Medication ?Instructions ?Recorded ?Last Taken ?Type pravastatin 40 mg tablet 40 mg PO QHS cholesterol 05/14/16 03/17/24 History probenecid 500 mg tablet 500 mg PO DAILY gout 05/14/16 03/18/24 History aspirin 81 mg tablet,delayed 81 mg PO DAILY@0800 heart health 07/16/16 03/18/24 History release cholecalciferol (vitamin D3) 25 1,000 unit PO DAILY vitamin 07/16/16 03/18/24 History mcg (1,000 unit) tablet cyanocobalamin (vitamin B-12) 1,000 mcg PO DAILY supplement 07/16/16 04/12/24 History 1,000 mcg tablet metformin 500 mg 24 hr 500 mg PO DAILY diabetes 07/16/16 03/18/24 History tablet,extended release (gastric retention) losartan 100 mg tablet (Cozaar) 150 mg PO DAILY BP 06/25/19 03/18/24 History sitagliptin phosphate 50 mg tablet 50 mg PO DAILY diabetes 06/25/19 03/18/24 History tamsulosin 0.4 mg capsule (Flomax) 0.8 mg PO QHS urination 06/25/19 03/17/24 History docusate sodium 100 mg capsule 100 mg PO BID PRN sool softener 09/11/19 Unknown History (Colace) ferrous sulfate 325 mg (65 mg 325 mg PO BID iron supplement 09/11/19 04/12/24 History iron) tablet (Feosol) folic acid 400 mcg tablet 800 mcg PO DAILY vitamin 09/11/19 04/12/24 History insulin glargine 100 unit/mL (3 8 unit subcut QHS diabetes 09/11/19 03/17/24 History mL) subcutaneous pen amlodipine 10 mg tablet See Rx Instructions .Route 03/18/24 03/17/24 History .COMPLEX BP blood sugar diagnostic (True 03/18/24 Unknown History Metrix Glucose Test Strip) gabapentin 400 mg capsule 400 mg PO QHS nerve pain 03/18/24 03/18/24 History latanoprost 0.005 % eye drops 1 drp ophthalmic (eye) QHS eye 03/18/24 03/17/24 History health magnesium chloride 71.5 mg 71.5 mg PO BID supplement 03/18/24 03/18/24 History (magnesium chloride) tablet,delayed release pen needle, diabetic 31 gauge x 03/18/24 Unknown History 01/31 (Droplet Pen Needle) potassium chloride 20 mEq 20 meq PO DAILY supplement 03/18/24 03/18/24 History tablet,extended release(part/cryst) furosemide 40 mg tablet (Lasix) 40 mg PO BIDCM #120 tabs 03/20/24 04/12/24 Rx hydralazine 50 mg tablet 50 mg PO 4X/DAY 04/02/24 Unknown History Allergy/AdvReac Type Severity Reaction Status Date / Time Milk Containing Products AdvReac NEEDS Verified 04/13/24 17:29 (Dairy) (Milk Containing FOLLOW-UP Products) quinapril (From Accupril) AdvReac Other Verified 04/13/24 17:29 Family History Mother Colon cancer Heart disease Hypertension CAD (coronary artery disease) Father Cancer prostate CVA (cerebral vascular accident) CAD (coronary artery disease) Brother CAD (coronary artery disease) CABG Brother CAD (coronary artery disease) CABG Surgical History History of left heart catheterization (07/2001) H/O colectomy S/P colonoscopy S/P cataract extraction Status post colectomy Social History household members: spouse Smoking Status: Former smoker how long ago did patient quit smokin years ago alcohol intake: never substance use type: does not use Physical Exam Const alert and oriented x3 HEENT normocephalic Eyes no scleral icterus Resp normal respiratory effort Resp Narrative: Bibasal crackles Extremity Extremity Narrative: 1-2+ bilateral pitting edema Psych mental status grossly normal Risk Stratification Risk Stratification Applicable: No Charges/Coding Visit Charges Inpatient E&M: 62018 Init Hosp L2 Objective Data Vital Signs: Vital Signs Temp Pulse Resp BP Pulse Ox O2 Del Method O2 Flow Rate 97.5 F L 54 L 16 133/71 H 95 Nasal Cannula 2 04/15/24 15:57 04/15/24 15:57 04/15/24 15:57 04/15/24 15:57 04/15/24 15:57 04/15/24 15:57 04/15/24 15:57 Oxygen Flow Rate (L/min) 2 Oxygen Delivery Method Nasal Cannula Weight: 195 lb 1.745 oz Body Mass Index (BMI) 25.8 Intake & Output: Intake and Output for Last 24 Hours 04/13/24 04/14/24 04/15/24 23:59 23:59 23:59 Intake Total 120 / 120 475 / 475 870 / 870 Output Total 400 / 400 2325 / 2525 1800 / 1800 Balance -280 / -280 -1850 / -2050 -930 / -930 Lab / Micro Data 04/15/24 06:20 04/15/24 06:20 Labs: Laboratory Results - last 24 hr 04/14/24 21:02: POC Glucose 148 H 04/15/24 06:20: WBC 4.6, RBC 2.70 L, Hgb 7.6 L, Hct 26.1 L, MCV 96.7 H, MCH 28.1, MCHC 29.1 L, RDW Std Deviation 57.9 H, RDW Coeff of Rachelle 16.3 H, Plt Count 118 L, MPV 9.9, Immature Gran % (Auto) 0.400, Neut % (Auto) 66.7, Lymph % (Auto) 16.2 L, [place] % (Auto) 14.1 H, Eos % (Auto) 1.7, Baso % (Auto) 0.9, Absolute Neuts (auto) 3.1, Absolute Lymphs (auto) 0.75 L, Nucleated RBC % 0, Sodium 141, Potassium 3.9, Chloride 105, Carbon Dioxide 30.0, Anion Gap 6, BUN 26 H, C reatinine 1.47 H, Estim Creat Clear Calc 38.50, Est GFR (MDRD) Af Amer 58 L, Est GFR (MDRD) Non-Af 48 L, BUN/Creatinine Ratio 17.7, Glucose 98, Calcium 8.6, Triglycerides 58, Cholesterol 76, LDL Cholesterol 33, VLDL Cholesterol 12, HDL Cholesterol 31 L 04/15/24 06:32: POC Glucose 92 04/15/24 12:48: POC Glucose 133 H 04/15/24 15:54: POC Glucose 93 Cardiology Labs/Tests 04/15/24 06:20: WBC 4.6, RBC 2.70 L, Hgb 7.6 L, Hct 26.1 L, MCV 96.7 H, MCH 28.1, MCHC 29.1 L, Plt Count 118 L, MPV 9.9, Immature Gran % (Auto) 0.400, Neut % (Auto) 66.7, Lymph % (Auto) 16.2 L, [place] % (Auto) 14.1 H, Eos % (Auto) 1.7, Baso % (Auto) 0.9, Absolute Neuts (auto) 3.1, Nucleated RBC % 0, Sodium 141, Potassium 3.9, Chloride 105, Carbon Dioxide 30.0, Anion Gap 6, BUN 26 H, C reatinine 1.47 H, Est GFR (MDRD) Af Amer 58 L, Est GFR (MDRD) Non-Af 48 L, BUN/Creatinine Ratio 17.7, Glucose 98, Calcium 8.6, Triglycerides 58, Cholesterol 76, LDL Cholesterol 33, VLDL Cholesterol 12, HDL Cholesterol 31 L Rhythm: EKG: ECHO: Stress Test: Cardiac Cath: PCI: CT Surgery: Holter monitor: EPS: PPM: CXR: Chest CT Scan:
[2024-04-15] MEDS: Tamsulosin HCl 0.4 MG Capsule 0.8 MG PO (22:45)
[2024-04-15] MEDS: Pravastatin 40 MG Tablet PO (22:47)
[2024-04-15] MEDS: Gabapentin 400 MG Capsule PO (22:47)
[2024-04-15] MEDS: Latanoprost 0.005% 1 Bottle 1 DRP OPHTHALMIC (22:47)
[2024-04-15] MEDS: amLODIPine 10 MG Tablet PO (22:47)
[2024-04-15] MEDS: Acetaminophen 325 MG Tablet 650 MG PO (22:48)
[2024-04-15 23:44] LABS: Bedside Glucose 111 mg/dL (74-106)
[2024-04-16] VITALS (12 sets, daily range): BP systolic 116–148; BP diastolic 62–91; PULSE 53–82; RESP 16–18; TEMP 36.1–36.6; O2SAT 92–98; BMI 25.8
[2024-04-16 03:41] LABS: Absolute Lymphocyte Count 0.73 X10^3/uL (0.83-4.51); Basophil# 0.05 X10^3/uL; Basophil% 1.1 % (0-1); Eosinophil# 0.15 X10^3/uL; Eosinophils% 3.4 % (0-5); Hematocrit 27.9 % (40-54); Lymphocyte # 0.73 X10^3/ul (0.83-4.51); Lymphocyte % 16.4 % (19-41); Mean Corp Hgb Conc 28.7 g/dL (32-36); Mean Corpuscular Hgb 27.8 pg (27.0-32.0); Mean Corpuscular Volume 96.9 fL (80-94); Mean Platelet Vol. 9.4 fl (6.2-12.0); Monocyte# 0.52 X10^3/uL; Monocyte% 11.7 % (0-10); NRBC Flagged by Analyzer 0 % (0-5); Neutrophil # 2.98 X10^3/uL (2.7-7.7); Platelet Count 121 K/mm3 (150-450); RBC Distribution Width CV 16.1 % (11.6-14.6); RBC Distribution Width SD 57.4 fl (35.1-43.9); Red Blood Count 2.88 M/mm3 (4.6-6.2); White Blood Count 4.5 K/mm3 (4.4-11.0)
[2024-04-16 03:52] LABS: International Normalized Ratio 1.2; Partial Thromboplast Time 29.1 Seconds (24.1-36.2); Prothrombin Time (Protime)PT. 15.6 SECONDS (11.7-14.9)
[2024-04-16 03:53] LABS: Anion Gap 4 (5-15); BUN 22 mg/dL (7-18); BUN/Creat Ratio 16.2 RATIO (10-20); Calcium,Total 8.8 mg/dL (8.5-10.1); Chloride 104 mmol/L (98-107); Creatinine, Serum 1.36 mg/dL (0.70-1.30); EST Glomerular Filtration Rate 52 mL/min (>60); Est Glom Filt Rate - Afr Amer 63 mL/min (>60); Estimated Creatinine Clearance 40.42 ml/min; Glucose 98 mg/dL (74-106); Potassium 3.7 mmol/L (3.5-5.1); Sodium Level 140 mmol/L (136-145)
--- NOTE | 2024-04-16 05:55 | EKG12_ITS ---
Test Reason : AM EKG Blood Pressure : / mmHG Vent. Rate : 055 BPM Atrial Rate : 000 BPM P-R Int : 000 ms QRS Dur : 204 ms QT Int : 564 ms P-R-T Axes : 000 -23 149 degrees QTc Int : 539 ms Atrial fibrillation with slow ventricular response with premature ventricular or aberrantly conducted complexes Left bundle branch block Abnormal ECG When compared with ECG of 13-APR-2024 18:01, MANUAL COMPARISON REQUIRED, DATA IS UNCONFIRMED Confirmed by Goyo Gonzalez ([id number]), school photograph editor DOUG CHILDS ([id number]) on 04/20/2024 1:29:16 PM Referred By: Confirmed By:Goyo Gonzalez
[2024-04-16 06:57] LABS: Bedside Glucose 90 mg/dL (74-106)
[2024-04-16 07:47] LABS: Hemoglobin A1c 5.5 % (3.8-5.6)
[2024-04-16 09:05] LABS: BNP,B-Type NATRIURETIC PEPTIDE 879.8 pg/mL (0-100)
--- NOTE | 2024-04-16 10:16 | PN.CARD_ITS ---
Documented by User: FARIDEH Ruiz 04/16/24 11:37 Subjective Subjective Pt seen and evaluated. He is scheduled to have an EGD today. telemetry notes ventricular runs up to 27 beats. Pt remains bradycardic. He is not aware of this. Objective Data Vital Signs: Vital Signs Temp Pulse Resp BP Pulse Ox O2 Del Method O2 Flow Rate 96.9 F L 56 L 16 129/74 H 95 Nasal Cannula 2 04/16/24 06:04/16/24 06:29 04/16/24 06:29 04/16/24 06:04/16/24 07:48 04/16/24 08:41 04/16/24 08:41 Oxygen Flow Rate (L/min) 2 Oxygen Delivery Method Nasal Cannula Weight: 195 lb 1.745 oz Body Mass Index (BMI) 25.8 Intake & Output: Intake and Output for Last 24 Hours 04/14/24 04/15/24 04/16/24 23:59 23:59 23:59 Intake Total 475 / 475 920 / 920 22.92 / 22.92 Output Total 2325 / 2525 1800 / 1800 450 / 450 Balance -1850 / -2050 -880 / -880 -427.08 / -427.08 Lab / Micro Data 04/16/24 03:25 04/16/24 03:25 Labs: Laboratory Results - last 24 hr 04/15/24 12:48: POC Glucose 133 H 04/15/24 15:54: POC Glucose 93 04/15/24 22:29: POC Glucose 111 H 04/16/24 03:25: WBC 4.5, RBC 2.88 L, Hgb 8.0 L, Hct 27.9 L, MCV 96.9 H, MCH 27.8, MCHC 28.7 L, RDW Std Deviation 57.4 H, RDW Coeff of Rachelle 16.1 H, Plt Count 121 L, MPV 9.4, Immature Gran % (Auto) 0.400, Neut % (Auto) 67.0, Lymph % (Auto) 16.4 L, [place] % (Auto) 11.7 H, Eos % (Auto) 3.4, Baso % (Auto) 1.1 H, Absolute Neuts (auto) 3.0, Absolute Lymphs (auto) 0.73 L, Nucleated RBC % 0, PT 15.6 H, INR 1.2, APTT 29.1, Sodium 140, Potassium 3.7, Chloride 104, Carbon Dioxide 32.0, Anion Gap 4 L, BUN 22 H, Creatinine 1.36 H, Estim Creat Clear Calc 40.42, Est GFR (MDRD) Af Amer 63, Est GFR (MDRD) Non-Af 52 L, BUN/Creatinine Ratio 16.2, Glucose 98, Hemoglobin A1c 5.5, Calcium 8.8, B-Natriuretic Peptide 879.8 H 04/16/24 06:33: POC Glucose 90 Cardiology Labs/Tests 04/16/24 03:25: WBC 4.5, RBC 2.88 L, Hgb 8.0 L, Hct 27.9 L, MCV 96.9 H, MCH 27.8, MCHC 28.7 L, Plt Count 121 L, MPV 9.4, Immature Gran % (Auto) 0.400, Neut % (Auto) 67.0, Lymph % (Auto) 16.4 L, [place] % (Auto) 11.7 H, Eos % (Auto) 3.4, B aso % (Auto) 1.1 H, Absolute Neuts (auto) 3.0, Nucleated RBC % 0, PT 15.6 H, INR 1.2, APTT 29.1, Sodium 140, Potassium 3.7, Chloride 104, Carbon Dioxide 32.0, A nion Gap 4 L, BUN 22 H, Creatinine 1.36 H, Est GFR (MDRD) Af Amer 63, Est GFR (MDRD) Non-Af 52 L, BUN/Creatinine Ratio 16.2, Glucose 98, Hemoglobin A1c 5.5, Calcium 8.8, B-Natriuretic Peptide 879.8 H Physical Exam Const alert and oriented x3 HEENT normocephalic Eyes no scleral icterus Resp normal respiratory effort Resp Narrative: Bibasal crackles Cardio Rate: bradycardia Rhythm: abnormal rhythm irregularly irregular and ectopic beats (ventricular runs) Extremity Extremity Narrative: trace pitting edema Psych mental status grossly normal Assessment & Plan Assessment/Plan (1) Non-ischemic cardiomyopathy: PLAN: Consider switching to oral lasix. He is not on a beta-lonny due to baseline bradycardia. Pt seems to be agreeable to a PPM to help optimize his medications. Will see if this can be done here on OP basis next week. he is tolerating his norvasc with his cardiomyopathy, will also continue with his losartan. (2) CHF exacerbation: QUALIFIERS: Heart failure type: unspecified Qualified Code(s): I 50.9 - Heart failure, unspecified (3) Atrial fibrillation: QUALIFIERS: Atrial fibrillation type: permanent Qualified Code(s): I48.21 - Permanent atrial fibrillation (4) Nonsustained ventricular tachycardia: PLAN: Pt continues with NSVT, will start amiodarone while pt is in hospital to monitor rhythm. Charges/Coding Visit Charges Inpatient E&M: 69271 Subs Hosp L2 Documented by User: Dr. Vickey Smith MD 04/16/24 16:33 Lab / Micro Data 04/16/24 03:25 04/16/24 03:25 Assessment & Plan Assessment/Plan (1) Non-ischemic cardiomyopathy: (2) CHF exacerbation: QUALIFIERS: Heart failure type: unspecified Qualified Code(s): I 50.9 - Heart failure, unspecified (3) Atrial fibrillation: QUALIFIERS: Atrial fibrillation type: permanent Qualified Code(s): I48.21 - Permanent atrial fibrillation (4) Nonsustained ventricular tachycardia: PLAN: Plan 89-year-old patient with nonischemic cardiomyopathy, A-fib has severe LV dysfunction And declined ICD implant, EF around 25% Multiple other medical comorbidities with hypertension, dyslipidemia Discussed his current medication, added amiodarone for episodes of nonsustained V. tach cheduled for pacemaker by his primary social economist Dr. Sinclair.
[2024-04-16] MEDS: 0.9% Normal Saline (1000mL) 1,000 ML 15 ML IV (10:55)
--- NOTE | 2024-04-16 12:09 | OP.EGD_ITS ---
Patient Name: Joel Talbert Procedure Date: 04/16/2024 11:43 AM Date of : 1935 Age: 89 Procedure: Upper GI endoscopy Indications: Iron deficiency anemia, Dyspepsia, Coffee-ground emesis Providers: Thomas Pearce DO Medicines: Monitored Anesthesia Care Patient Profile: This is an 89 year old male. Refer to note in patient chart for documentation of history and physical. Patient has symptoms of acute vomiting. Complications: No immediate complications. Procedure: Pre-Anesthesia Assessment: - Prior to the procedure, a History and Physical was performed, and patient medications and allergies were reviewed. The patient is competent. The risks and benefits of the procedure and the sedation options and risks were discussed with the patient. All questions were answered and informed consent was obtained. Patient identification and proposed procedure were verified by the physician in the pre-procedure area. Mental Status Examination: alert and oriented. Airway Examination: normal oropharyngeal airway and neck mobility. Respiratory Examination: clear to auscultation. CV Examination: normal. Prophylactic Antibiotics: The patient does not require prophylactic antibiotics. Prior Anticoagulants: The patient has taken no anticoagulant or antiplatelet agents. ASA Grade Assessment: II - A patient with mild systemic disease. After reviewing the risks and benefits, the patient was deemed in satisfactory condition to undergo the procedure. The anesthesia plan was to use monitored anesthesia care (MAC). Immediately prior to administration of medications, the patient was re-assessed for adequacy to receive sedatives. The heart rate, respiratory rate, oxygen saturations, blood pressure, adequacy of pulmonary ventilation, and response to care were monitored throughout the procedure. The physical status of the patient was re-assessed after the procedure. After obtaining informed consent, the endoscope was passed under direct vision. Throughout the procedure, the patient's blood pressure, pulse, and oxygen saturations were monitored continuously. The gastroscope was introduced through the mouth, and advanced to the second part of duodenum. The upper GI endoscopy was accomplished without difficulty. The patient tolerated the procedure well. Scope In: 11:49:01 AM Scope Out: 11:59:47 AM Total Procedure Duration Time 0 hours 10 minutes 46 seconds Findings: Small (< 5 mm) varices were found in the upper third of the esophagus, in the middle third of the esophagus and in the lower third of the esophagus. They were 5 mm in largest diameter. Hematin (altered blood/awbsso-hkkogu-gmuh material) was found in the entire examined stomach. Red blood was found in the gastric body. A single 8 mm angiodysplastic lesion with bleeding was found in the gastric body. Coagulation for hemostasis using heater probe was successful. Estimated blood loss was minimal. No gross lesions were noted in the second portion of the duodenum. Impression: - Small (< 5 mm) esophageal varices. - Hematin (altered blood/auswrq-iradcd-owmj material) in the entire stomach. - Red blood in the gastric body. - A single bleeding angiodysplastic lesion in the stomach. Treated with a heater probe. - No gross lesions in the second portion of the duodenum. - No specimens collected. Recommendation: - [facility]. - Resume previous diet. - Continue present medications. Procedure Code(s): --- Professional --- 47869, Esophagogastroduodenoscopy, flexible, transoral; with control of bleeding, any method CPT copyright 2021 [employer]. All rights reserved. The codes documented in this report are preliminary and upon gas main fitter helper review may be revised to meet current compliance requirements. Thomas Pearce DO 04/16/2024 12:09:25 PM This report has been signed electronically. Number of Addenda: 0 Note Initiated On: 04/16/2024 11:43 AM
--- NOTE | 2024-04-16 12:10 | OP.CCLET_ITS ---
04/16/2024 Cory Mckeon Re : Upper GI endoscopy procedure for Joel Talbert Zuleyka Mckeon This procedure was performed on March. My impressions and recommendations are as follows: Impressions : - Small (< 5 mm) esophageal varices. - Hematin (altered blood/torria-zyqgtm-nrqh material) in the entire stomach. - Red blood in the gastric body. - A single bleeding angiodysplastic lesion in the stomach. Treated with a heater probe. - No gross lesions in the second portion of the duodenum. - No specimens collected. Recommendations : - [facility] to [facility]. - Resume previous diet. - Continue present medications. My findings are described in the full procedure note, which is enclosed. If I can be of further assistance, please feel free to contact me at . Sincerely, Thomas Pearce, 04/16/2024 12:09:25 PM This report has been signed electronically.
--- NOTE | 2024-04-16 13:10 | PN.HOSP_ITS ---
Reason for Visit Reason for Visit: Diagnoses Hyperlipidemia, unspecified (04/13/24) Essential (primary) hypertension (04/13/24) Nonrheumatic aortic (valve) stenosis (04/13/24) Other cardiomyopathies (04/13/24) Other ventricular tachycardia (04/13/24) Permanent atrial fibrillation (04/13/24) Heart failure, unspecified (04/13/24) Thoracic aortic aneurysm, without rupture (04/13/24) Subjective Subjective No acute events overnight. Patient seen at bedside this morning, and daughter present. Patient was sitting up comfortably in bedside chair, conversing normally, in no acute distress. Breathing comfortably on 2 L nasal cannula at rest with good oxygen saturations. States he is continue to have good urine output since yesterday. Continues to have mild dyspnea with exertion that is improving. He has been n.p.o. this morning with plan for EGD to further assess for difficulty with swallowing. Otherwise denies any new concerns today. Objective Data Objective Data Vital Signs: Vital Signs Temp Pulse Resp BP Pulse Ox O2 Del Method O2 Flow Rate 97 F L 61 16 116/69 92 Nasal Cannula 2 04/16/24 13:01 04/16/24 13:01 04/16/24 13:01 04/16/24 13:01 04/16/24 13:01 04/16/24 13:01 04/16/24 13:01 Oxygen Flow Rate (L/min) 2 Oxygen Delivery Method Nasal Cannula Weight: 88.5 kg Body Mass Index (BMI) 25.8 Intake & Output: Intake and Output for Last 24 Hours 04/14/24 04/15/24 04/16/24 23:59 23:59 23:59 Intake Total 475 / 475 920 / 920 22.92 / 22.92 Output Total 2325 / 2525 1800 / 1800 450 / 450 Balance -1850 / -2050 -880 / -880 -427.08 / -427.08 Lab / Micro Data 04/16/24 03:25 04/16/24 03:25 Labs: Laboratory Results - last 24 hr 04/15/24 12:48: POC Glucose 133 H 04/15/24 15:54: POC Glucose 93 04/15/24 22:29: POC Glucose 111 H 04/16/24 03:25: WBC 4.5, RBC 2.88 L, Hgb 8.0 L, Hct 27.9 L, MCV 96.9 H, MCH 27.8, MCHC 28.7 L, RDW Std Deviation 57.4 H, RDW Coeff of Rachelle 16.1 H, Plt Count 121 L, MPV 9.4, Immature Gran % (Auto) 0.400, Neut % (Auto) 67.0, Lymph % (Auto) 16.4 L, Dixie % (Auto) 11.7 H, Eos % (Auto) 3.4, Baso % (Auto) 1.1 H, Absolute Neuts (auto) 3.0, Absolute Lymphs (auto) 0.73 L, Nucleated RBC % 0, PT 15.6 H, INR 1.2, APTT 29.1, Sodium 140, Potassium 3.7, Chloride 104, Carbon Dioxide 32.0, Anion Gap 4 L, BUN 22 H, Creatinine 1.36 H, Estim Creat Clear Calc 40.42, Est GFR (MDRD) Af Amer 63, Est GFR (MDRD) Non-Af 52 L, BUN/Creatinine Ratio 16.2, Glucose 98, Hemoglobin A1c 5.5, Calcium 8.8, B-Natriuretic Peptide 879.8 H 04/16/24 06:33: POC Glucose 90 Micro: Microbiology 04/14/24 10:15 Mucosa - Throat Streptococcus pyogenes (PCR) - Final 04/14/24 10:15 Mucosa - Nose SARS-CoV-2, Influenza & RSV (PCR) - Final 04/14/24 10:12 Urine, Clean Catch Legionella Antigen - Final 04/14/24 10:12 Urine, Clean Catch Streptococcus pneumoniae Antigen (M - Final Physical Exam Const alert, oriented x3, no apparent distress and average body habitus Constitutional Narrative: Elderly male, mildly fatigued appearing, otherwise sitting up comfortably in bedside chair, conversing normally, in no acute distress. General Appearance: cooperative and comfortable HEENT normocephalic, head/scalp atraumatic, hearing grossly normal bilaterally and nasal mucous membranes and turbinates normal Eyes PERRL, EOMs intact bilaterally and conjunctivae normal Neck full ROM Chest inspection of chest normal Resp normal respiratory effort and no use of accessory muscles Resp Narrative: Mildly decreased breath sounds bilaterally throughout. No wheezing or crackles noted. Breathing comfortably on 2 L nasal cannula at rest. Stable. Cardio no murmurs and peripheral pulses 2+ throughout Cardio Narrative: A-fib with slow ventricular response. GI normal to inspection, nondistended, normoactive bowel sounds, soft to palpation, non-tender and non-distended Back/Spine normal ROM Extremity normal to inspection and full ROM Extremity Narrative: +1-2 bilateral lower extremity edema, stable. Skin no rashes or lesions noted Neuro no focal motor deficits and no sensory deficits noted Speech: speech normal Psych mental status grossly normal Assessment & Plan Assessment/Plan (1) Nonsustained ventricular tachycardia: (2) Non-ischemic cardiomyopathy: (3) Atrial fibrillation: QUALIFIERS: Atrial fibrillation type: permanent Qualified Code(s): I48.21 - Permanent atrial fibrillation (4) CHF exacerbation: QUALIFIERS: Heart failure type: unspecified Qualified Code(s): I 50.9 - Heart failure, unspecified PLAN: Plan Patient is an 89-year-old male who presented to [facility] ED on 04/13/2024 with worsening shortness of breath. 1. Acute exacerbation of HFrEF with mild hypoxia, recently diagnosed nonischemic cardiomyopathy ? Cardiology following. Most recent echo on 03/18 showed EF 25%, stage II diastolic dysfunction, severe global hypokinesis, severely enlarged LA, moderate pulmonary hypertension. Per cardiology, suspected that new nonischemic cardiomyopathy was secondary to paroxysmal A-fib with slow ventricular response. Exacerbation presumed secondary to diuretic nonadherence at home. Improving with IV Lasix 40 mg twice daily, will transition to p.o. lasix twice daily on 04/17. Will plan to complete O2 ambulatory test tomorrow to determine if he needs oxygen going home. Continue to monitor BMP and urine output daily. 2. Permanent A-fib with slow ventricular response; Nonsustained V tach ? Cardiology following as above. Rate has consistently been in the 40s to 50s since admission, stable. Not on any rate controlling agents. Not on anticoagulation due to fall risk. Has had multiple runs of nonsustained V. tach during this hospitalization. Electrolytes stable on multiple checks. Per cardiology, patient is high risk for runs of V. tach given nonischemic cardiomyopathy as noted above. Started on p.o. amiodarone 200 mg daily on 04/16. Patient remains hesitant on having AICD placed, will reconsider this in outpatient setting and notably this would need to be done outside of [place]. Likely planning for pacemaker placement in outpatient setting next week. Continue cardiac monitoring. 3. Concern for pneumonia ? Chest x-ray on admit with increased opacification in medial right lower lung concerning for possible pneumonia along with cardiomegaly stable from previous. Repeat chest x-ray on 04/14 stable. Infectious workup negative. No clinical signs of pneumonia. Antibiotics discontinued on 04/15. Continue to monitor. 4. Chronic iron deficiency anemia ? Baseline hemoglobin around 7.5-8.5. Hemoglobin stable at baseline. Repeat iron studies on 04/14 showed continued significant iron deficiency. Will treat with 2 doses of IV iron while inpatient. Monitor daily CBC. Chronic medical conditions: ? Hypertension: Continue home losartan, amlodipine and hydralazine. ? Hyperlipidemia: Continue home statin. ? Type 2 diabetes mellitus: Home regimen of insulin glargine 8 units at night, metformin 500 mg daily, Sitagliptin 50 mg daily. Treating with Lantus 6 units at night plus sliding scale insulin with meals as needed while inpatient, adjust as needed. ? BPH with obstructive symptoms: Stable. Continue home Flomax. ? Neuropathy: Continue home gabapentin. ? History of gout: Continue home probenecid. DVT prophylaxis: SCDs CODE STATUS: DNR CCA, DNI Expected disposition: Home, 1 to 2 days Total clinical time spent by myself addressing the patient's medical issues, reviewing all the data, and collaborating with patient's care team: 35 minutes. Charges/Coding Visit Charges Inpatient E&M: 92423 Subs Hosp L2
[2024-04-16] MEDS: Potassium Chloride Oral Tablet 20 MEQ PO (13:18)
[2024-04-16] MEDS: Folic Acid 1 MG Tablet PO (13:18)
[2024-04-16] MEDS: Furosemide 40 MG/4 ML Vial IV ×2 (13:18→17:29)
[2024-04-16] MEDS: guaiFENesin/D-Methorphan TAB.SR.12H 2 TABLET PO ×2 (13:19→21:42)
[2024-04-16] MEDS: Magnesium Chloride 64 MG Delay Rel.Tablet PO ×2 (13:19→21:42)
[2024-04-16] MEDS: Senna/Docusate Sodium 1 Tablet 2 TABLET PO ×2 (13:20→21:43)
[2024-04-16] MEDS: Ferrous Sulfate 325 MG Tablet PO (13:20)
[2024-04-16] MEDS: Cholecalciferol (VIT D3) 25 MCG TABLET (1,000 UNITS) PO (13:20)
[2024-04-16] MEDS: LINAGLIPTIN 5 MG TABLET PO (13:20)
[2024-04-16] MEDS: Cyanocobalamin 500 MCG Tablet 1000 MCG PO (13:20)
[2024-04-16] MEDS: Menthol/Lanolin/Calamine/Znox 113 GM Tube 1 APPLIC TOPICAL ×2 (13:21→21:42)
[2024-04-16 14:50] LABS: Bedside Glucose 92 mg/dL (74-106)
[2024-04-16] MEDS: Amiodarone 200 MG Tablet PO (15:20)
[2024-04-16] MEDS: Sodium Ferric Gluconat/Sucrose 250 MG in 0.9% Normal Saline (250mL Bag) 250 ML 135 MG IV (15:21)
[2024-04-16] MEDS: hydrALAZINE 25 MG Tablet PO ×2 (17:28→21:41)
[2024-04-16] MEDS: Tamsulosin HCl 0.4 MG Capsule 0.8 MG PO (21:41)
[2024-04-16] MEDS: amLODIPine 10 MG Tablet PO (21:42)
[2024-04-16] MEDS: Gabapentin 400 MG Capsule PO (21:42)
[2024-04-16] MEDS: Latanoprost 0.005% 1 Bottle 1 DRP OPHTHALMIC (21:43)
[2024-04-16] MEDS: Pravastatin 40 MG Tablet PO (21:43)
[2024-04-16] MEDS: Insulin Glargine-YFGN 100 UNIT/ML Pen 6 UNIT SC (21:47)
[2024-04-16] MEDS: Insulin Lispro 100 UNIT/ML INSULN.PEN SC (21:48)
[2024-04-16 23:19] LABS: Bedside Glucose 162 mg/dL (74-106)
[2024-04-17] VITALS (11 sets, daily range): BP systolic 121–139; BP diastolic 51–71; PULSE 48–97; RESP 18; TEMP 36.2–36.6; O2SAT 92–96
[2024-04-17 00:50] LABS: Bedside Glucose 146 mg/dL (74-106)
[2024-04-17 06:51] LABS: Anion Gap 4 (5-15); BUN 24 mg/dL (7-18); BUN/Creat Ratio 16.1 RATIO (10-20); Calcium,Total 8.7 mg/dL (8.5-10.1); Chloride 104 mmol/L (98-107); Creatinine, Serum 1.49 mg/dL (0.70-1.30); EST Glomerular Filtration Rate 47 mL/min (>60); Est Glom Filt Rate - Afr Amer 57 mL/min (>60); Estimated Creatinine Clearance 36.89 ml/min; Glucose 106 mg/dL (74-106); Potassium 4.1 mmol/L (3.5-5.1); Sodium Level 138 mmol/L (136-145)
[2024-04-17 07:07] LABS: Bedside Glucose 95 mg/dL (74-106)
[2024-04-17] MEDS: Polyethylene Glycol 3350 17 GM PACKET PO (09:03)
[2024-04-17] MEDS: Sodium Ferric Gluconat/Sucrose 250 MG in 0.9% Normal Saline (250mL Bag) 250 ML 135 MG IV (09:08)
[2024-04-17] MEDS: Cyanocobalamin 500 MCG Tablet 1000 MCG PO (09:11)
[2024-04-17] MEDS: Furosemide 40 MG Tablet PO ×2 (09:12→17:08)
[2024-04-17] MEDS: guaiFENesin/D-Methorphan TAB.SR.12H 2 TABLET PO ×2 (09:12→20:14)
[2024-04-17] MEDS: Amiodarone 200 MG Tablet PO (09:12)
[2024-04-17] MEDS: Losartan Potassium 100 MG Tablet PO (09:12)
[2024-04-17] MEDS: Senna/Docusate Sodium 1 Tablet 2 TABLET PO ×2 (09:12→20:14)
[2024-04-17] MEDS: hydrALAZINE 25 MG Tablet PO ×3 (09:13→20:18)
[2024-04-17] MEDS: Folic Acid 1 MG Tablet PO (09:13)
[2024-04-17] MEDS: Magnesium Chloride 64 MG Delay Rel.Tablet PO ×2 (09:13→20:15)
[2024-04-17] MEDS: LINAGLIPTIN 5 MG TABLET PO (09:13)
[2024-04-17] MEDS: Potassium Chloride Oral Tablet 20 MEQ PO (09:13)
[2024-04-17] MEDS: Menthol/Lanolin/Calamine/Znox 113 GM Tube 1 APPLIC TOPICAL ×2 (09:14→20:13)
[2024-04-17] MEDS: Cholecalciferol (VIT D3) 25 MCG TABLET (1,000 UNITS) PO (09:14)
--- NOTE | 2024-04-17 10:54 | PCM.PN.HOSP ---
Reason for Visit Reason for Visit: Diagnoses Hyperlipidemia, unspecified (04/13/24) Essential (primary) hypertension (04/13/24) Nonrheumatic aortic (valve) stenosis (04/13/24) Other cardiomyopathies (04/13/24) Other ventricular tachycardia (04/13/24) Permanent atrial fibrillation (04/13/24) Heart failure, unspecified (04/13/24) Thoracic aortic aneurysm, without rupture (04/13/24) Subjective Subjective No acute events overnight. Patient seen at bedside this morning, family at bedside. Patient sitting up comfortably in bedside chair, in no acute distress. Appears similar to yesterday. Patient denies any new concerns morning. He states that he is tired of being in the hospital and feels ready to go home. No other concerns at this time. Objective Data Objective Data Vital Signs: Vital Signs Temp Pulse Resp BP Pulse Ox O2 Del Method O2 Flow Rate 97.5 F L 52 L 18 135/68 H 93 Nasal Cannula 2 04/17/24 09:01 04/17/24 09:13 04/17/24 09:01 04/17/24 09:01 04/17/24 09:01 04/17/24 09:01 04/17/24 09:01 Oxygen Flow Rate (L/min) 2 Oxygen Delivery Method Nasal Cannula Weight: 88.5 kg Body Mass Index (BMI) 25.8 Intake & Output: Intake and Output for Last 24 Hours 04/15/24 04/16/24 04/17/24 23:59 23:59 23:59 Intake Total 920 / 920 447.92 / 447.92 Output Total 1800 / 1800 1000 / 1000 300 / 300 Balance -880 / -880 -552.08 / -552.08 -300 / -300 Lab / Micro Data 04/16/24 03:25 04/17/24 05:50 Labs: Laboratory Results - last 24 hr 04/16/24 12:58: POC Glucose 92 04/16/24 17:25: POC Glucose 146 H 04/16/24 21:33: POC Glucose 162 H 04/17/24 05:50: Sodium 138, Potassium 4.1, Chloride 104, Carbon Dioxide 30.0, Anion Gap 4 L, BUN 24 H, Creatinine 1.49 H, Estim Creat Clear Calc 36.89, Est GFR (MDRD) Af Amer 57 L, Est GFR (MDRD) Non-Af 47 L, BUN/Creatinine Ratio 16.1, Glucose 106, Calcium 8.7 04/17/24 06:17: POC Glucose 95 Micro: Microbiology 04/14/24 10:15 Mucosa - Throat Streptococcus pyogenes (PCR) - Final 04/14/24 10:15 Mucosa - Nose SARS-CoV-2, Influenza & RSV (PCR) - Final 04/14/24 10:12 Urine, Clean Catch Legionella Antigen - Final 04/14/24 10:12 Urine, Clean Catch Streptococcus pneumoniae Antigen (M - Final Physical Exam Const alert, oriented x3, no apparent distress and average body habitus Constitutional Narrative: Elderly male, mildly fatigued appearing, otherwise sitting up comfortably in bedside chair, conversing normally, in no acute distress. General Appearance: cooperative and comfortable HEENT normocephalic, head/scalp atraumatic, hearing grossly normal bilaterally and nasal mucous membranes and turbinates normal Eyes PERRL, EOMs intact bilaterally and conjunctivae normal Neck full ROM Chest inspection of chest normal Resp normal respiratory effort and no use of accessory muscles Resp Narrative: Mildly decreased breath sounds bilaterally throughout. No wheezing or crackles noted. Breathing comfortably on 2 L nasal cannula at rest. Stable. Cardio no murmurs and peripheral pulses 2+ throughout Cardio Narrative: A-fib with slow ventricular response. GI normal to inspection, nondistended, normoactive bowel sounds, soft to palpation, non-tender and non-distended Back/Spine normal ROM Extremity normal to inspection and full ROM Extremity Narrative: +1-2 bilateral lower extremity edema, stable. Skin no rashes or lesions noted Neuro no focal motor deficits and no sensory deficits noted Speech: speech normal Psych mental status grossly normal Assessment & Plan Assessment/Plan (1) Nonsustained ventricular tachycardia: (2) Non-ischemic cardiomyopathy: (3) Atrial fibrillation: QUALIFIERS: Atrial fibrillation type: permanent Qualified Code(s): I48.21 - Permanent atrial fibrillation (4) CHF exacerbation: QUALIFIERS: Heart failure type: unspecified Qualified Code(s): I50.9 - Heart failure, unspecified PLAN: Plan Patient is an 89-year-old male who presented to [facility] ED on 04/13/2024 with worsening shortness of breath. 1. Acute exacerbation of HFrEF with mild hypoxia, recently diagnosed nonischemic cardiomyopathy ? Cardiology following. Most recent echo on 03/18 showed EF 25%, stage II diastolic dysfunction, severe global hypokinesis, severely enlarged LA, moderate pulmonary hypertension. Per cardiology, suspected that new nonischemic cardiomyopathy was secondary to paroxysmal A-fib with slow ventricular response. Exacerbation presumed secondary to diuretic nonadherence at home. Improved with IV Lasix 40 mg twice daily, transitioned to p.o. lasix twice daily on 04/17. Continue to monitor BMP and urine output daily. 2. Permanent A-fib with slow ventricular response; Nonsustained V tach ? Cardiology following as above. Rate has consistently been in the 40s to 50s since admission, stable. Not on any rate controlling agents. Not on anticoagulation due to fall risk. Has had multiple runs of nonsustained V. tach during this hospitalization. Electrolytes stable on multiple checks. Per cardiology, patient is high risk for runs of V. tach given nonischemic cardiomyopathy as noted above. Started on p.o. amiodarone 200 mg daily on 04/16. Patient remains hesitant on having AICD placed, will reconsider this in outpatient setting and notably this would need to be done outside of [place]. Planning for pacemaker placement on Friday 04/20, will need to remain inpatient until then per cardiology recs. Continue cardiac monitoring. 3. Concern for pneumonia ? Chest x-ray on admit with increased opacification in medial right lower lung concerning for possible pneumonia along with cardiomegaly stable from previous. Repeat chest x-ray on 04/14 stable. Infectious workup negative. No clinical signs of pneumonia. Antibiotics discontinued on 04/15. Continue to monitor. 4. Chronic iron deficiency anemia ? Baseline hemoglobin around 7.5-8.5. Hemoglobin stable at baseline. Repeat iron studies on 04/14 showed continued significant iron deficiency. Given 2 doses of IV iron 200 mg on 04/16 and 04/17. Monitor daily CBC. Continue p.o. iron supplement. Chronic medical conditions: ? Hypertension: Continue home losartan, amlodipine and hydralazine. ? Hyperlipidemia: Continue home statin. ? Type 2 diabetes mellitus: Home regimen of insulin glargine 8 units at night, metformin 500 mg daily, Sitagliptin 50 mg daily. Treating with Lantus 6 units at night plus sliding scale insulin with meals as needed while inpatient, adjust as needed. ? BPH with obstructive symptoms: Stable. Continue home Flomax. ? Neuropathy: Continue home gabapentin. ? History of gout: Continue home probenecid. DVT prophylaxis: Lovenox CODE STATUS: DNR CCA, DNI Expected disposition: Home, TBD Total clinical time spent by myself addressing the patient's medical issues, reviewing all the data, and collaborating with patient's care team: 35 minutes. Charges/Coding Visit Charges Inpatient E&M: 65487 Subs Hosp L2
[2024-04-17 11:48] LABS: Bedside Glucose 125 mg/dL (74-106)
[2024-04-17] MEDS: Ferrous Sulfate 325 MG Tablet PO (12:40)
--- NOTE | 2024-04-17 13:13 | PCM.PN.CARD ---
Subjective Subjective Pt seen and examined. Telemetry no long NSVT runs since starting amiodarone. Still bradycardic and having PVCs. Objective Data Vital Signs: Vital Signs Temp Pulse Resp BP Pulse Ox O2 Del Method O2 Flow Rate 97.5 F L 48 L 18 123/51 H 93 Nasal Cannula 2 04/17/24 13:10 04/17/24 13:10 04/17/24 13:10 04/17/24 13:10 04/17/24 13:10 04/17/24 13:10 04/17/24 13:10 Oxygen Flow Rate (L/min) 2 Oxygen Delivery Method Nasal Cannula Weight: 195 lb 1.745 oz Body Mass Index (BMI) 25.8 Intake & Output: Intake and Output for Last 24 Hours 04/15/24 04/16/24 04/17/24 23:59 23:59 23:59 Intake Total 920 / 920 447.92 / 447.92 770 / 770 Output Total 1800 / 1800 1000 / 1000 300 / 300 Balance -880 / -880 -552.08 / -552.08 470 / 470 Lab / Micro Data 04/16/24 03:25 04/17/24 05:50 Labs: Laboratory Results - last 24 hr 04/16/24 12:58: POC Glucose 92 04/16/24 17:25: POC Glucose 146 H 04/16/24 21:33: POC Glucose 162 H 04/17/24 05:50: Sodium 138, Potassium 4.1, Chloride 104, Carbon Dioxide 30.0, Anion Gap 4 L, BUN 24 H, Creatinine 1.49 H, Estim Creat Clear Calc 36.89, Est GFR (MDRD) Af Amer 57 L, Est GFR (MDRD) Non-Af 47 L, BUN/Creatinine Ratio 16.1, Glucose 106, Calcium 8.7 04/17/24 06:17: POC Glucose 95 04/17/24 11:29: POC Glucose 125 H Cardiology Labs/Tests 04/17/24 05:50: Sodium 138, Potassium 4.1, Chloride 104, Carbon Dioxide 30.0, Anion Gap 4 L, BUN 24 H, Creatinine 1.49 H, Est GFR (MDRD) Af Amer 57 L, Est GFR (MDRD) Non-Af 47 L, BUN/Creatinine Ratio 16.1, Glucose 106, Calcium 8.7 Physical Exam Const alert and oriented x3 HEENT normocephalic Eyes no scleral icterus Resp normal respiratory effort Resp Narrative: Bibasal crackles Cardio Rate: bradycardia Rhythm: abnormal rhythm irregularly irregular and ectopic beats (ventricular runs) Extremity Extremity Narrative: trace pitting edema Psych mental status grossly normal Assessment & Plan Assessment/Plan (1) Non-ischemic cardiomyopathy: PLAN: Consider switching to oral lasix. He is not on a beta-lonny due to baseline bradycardia. Pt seems to be agreeable to a PPM to help optimize his medications. Will see if this can be done here on OP basis next week. Once PPM is placed will be able to start betablocker to help with his cardiomyopathy. he is tolerating his norvasc with his cardiomyopathy, will also continue with his losartan. (2) CHF exacerbation: QUALIFIERS: Heart failure type: unspecified Qualified Code(s): I50.9 - Heart failure, unspecified (3) Atrial fibrillation: QUALIFIERS: Atrial fibrillation type: permanent Qualified Code(s): I48.21 - Permanent atrial fibrillation PLAN: Pt is bradycardiac, unable to treat cardiomyopathy and NSVT with medications d/t his bradycardia. He will undergo a single lead PPM placement Saturday. (4) Nonsustained ventricular tachycardia: PLAN: Pt continues with NSVT, will start amiodarone while pt is in hospital to monitor rhythm. PLAN: Plan 89-year-old patient with nonischemic cardiomyopathy, A-fib has severe LV dysfunction And declined ICD implant, EF around 25% Multiple other medical comorbidities with hypertension, dyslipidemia Discussed his current medication, added amiodarone for episodes of nonsustained V. tach cheduled for pacemaker by his primary senior capital markets specialist Dr. Sinclair. Charges/Coding Visit Charges Inpatient E&M: 95912 Subs Hosp L2
[2024-04-17] MEDS: Insulin Lispro 100 UNIT/ML INSULN.PEN SC (16:05)
[2024-04-17 16:25] LABS: Bedside Glucose 152 mg/dL (74-106)
[2024-04-17] MEDS: Latanoprost 0.005% 1 Bottle 1 DRP OPHTHALMIC (20:14)
[2024-04-17] MEDS: Tamsulosin HCl 0.4 MG Capsule 0.8 MG PO (20:15)
[2024-04-17] MEDS: Pravastatin 40 MG Tablet PO (20:15)
[2024-04-17] MEDS: amLODIPine 10 MG Tablet PO (20:15)
[2024-04-17] MEDS: Gabapentin 400 MG Capsule PO (20:16)
[2024-04-17] MEDS: Insulin Glargine-YFGN 100 UNIT/ML Pen 6 UNIT SC (20:17)
[2024-04-17 21:21] LABS: Bedside Glucose 137 mg/dL (74-106)
[2024-04-18] VITALS (13 sets, daily range): BP systolic 109–140; BP diastolic 57–72; PULSE 45–59; RESP 18; TEMP 36.1–36.7; O2SAT 94–99
[2024-04-18 06:56] LABS: Bedside Glucose 91 mg/dL (74-106)
[2024-04-18 08:18] LABS: Anion Gap 5 (5-15); BUN 25 mg/dL (7-18); BUN/Creat Ratio 14.8 RATIO (10-20); Calcium,Total 8.9 mg/dL (8.5-10.1); Chloride 103 mmol/L (98-107); Creatinine, Serum 1.69 mg/dL (0.70-1.30); EST Glomerular Filtration Rate 41 mL/min (>60); Est Glom Filt Rate - Afr Amer 49 mL/min (>60); Estimated Creatinine Clearance 32.52 ml/min; Glucose 99 mg/dL (74-106); Sodium Level 137 mmol/L (136-145)
[2024-04-18] MEDS: Enoxaparin 40 MG/0.4 ML Syringe SC (09:12)
[2024-04-18] MEDS: LINAGLIPTIN 5 MG TABLET PO (09:13)
[2024-04-18] MEDS: Magnesium Chloride 64 MG Delay Rel.Tablet PO ×2 (09:13→21:35)
[2024-04-18] MEDS: Losartan Potassium 100 MG Tablet PO (09:13)
[2024-04-18] MEDS: Furosemide 40 MG Tablet PO (09:13)
[2024-04-18] MEDS: Folic Acid 1 MG Tablet PO (09:14)
[2024-04-18] MEDS: Ferrous Sulfate 325 MG Tablet PO (09:14)
[2024-04-18] MEDS: Senna/Docusate Sodium 1 Tablet 2 TABLET PO (09:14)
[2024-04-18] MEDS: Potassium Chloride Oral Tablet 20 MEQ PO (09:15)
[2024-04-18] MEDS: hydrALAZINE 25 MG Tablet PO ×4 (09:15→21:36)
[2024-04-18] MEDS: Amiodarone 200 MG Tablet PO (09:16)
[2024-04-18] MEDS: guaiFENesin/D-Methorphan TAB.SR.12H 2 TABLET PO ×2 (09:16→21:35)
[2024-04-18] MEDS: Menthol/Lanolin/Calamine/Znox 113 GM Tube 1 APPLIC TOPICAL (09:16)
[2024-04-18] MEDS: Cholecalciferol (VIT D3) 25 MCG TABLET (1,000 UNITS) PO (09:17)
[2024-04-18] MEDS: Cyanocobalamin 500 MCG Tablet 1000 MCG PO (09:18)
[2024-04-18] MEDS: Polyethylene Glycol 3350 17 GM PACKET PO (09:19)
--- NOTE | 2024-04-18 09:56 | PN.HOSP_ITS ---
Reason for Visit Reason for Visit: Diagnoses Hyperlipidemia, unspecified (04/13/24) Essential (primary) hypertension (04/13/24) Nonrheumatic aortic (valve) stenosis (04/13/24) Other cardiomyopathies (04/13/24) Other ventricular tachycardia (04/13/24) Permanent atrial fibrillation (04/13/24) Heart failure, unspecified (04/13/24) Thoracic aortic aneurysm, without rupture (04/13/24) Subjective Subjective No acute events overnight. Patient seen at bedside this morning, family members present. Patient sitting up comfortably in bed, conversing normally, no acute distress. Feels similar today to previous days. Denies any new concerns this morning. Objective Data Objective Data Vital Signs: Vital Signs Temp Pulse Resp BP Pulse Ox O2 Del Method O2 Flow Rate 98.0 F 53 L 18 140/57 H 95 Nasal Cannula 2 04/18/24 09:10 04/18/24 09:15 04/18/24 09:10 04/18/24 09:15 04/18/24 09:10 04/18/24 09:10 04/18/24 09:10 Oxygen Flow Rate (L/min) 2 Oxygen Delivery Method Nasal Cannula Weight: 88.5 kg Body Mass Index (BMI) 25.8 Intake & Output: Intake and Output for Last 24 Hours 04/16/24 04/17/24 04/18/24 23:59 23:59 23:59 Intake Total 447.92 / 447.92 1010 / 1010 0 / 0 Output Total 1000 / 1000 450 / 450 0 / 0 Balance -552.08 / -552.08 560 / 560 0 / 0 Lab / Micro Data 04/16/24 03:25 04/18/24 07:30 Labs: Laboratory Results - last 24 hr 04/17/24 11:29: POC Glucose 125 H 04/17/24 16:02: POC Glucose 152 H 04/17/24 20:07: POC Glucose 137 H 04/18/24 06:39: POC Glucose 91 04/18/24 07:30: Sodium 137, Potassium 4.0, Chloride 103, Carbon Dioxide 29.0, Anion Gap 5, BUN 25 H, Creatinine 1.69 H, Estim Creat Clear Calc 32.52, Est GFR (MDRD) Af Amer 49 L, Est GFR (MDRD) Non-Af 41 L, BUN/Creatinine Ratio 14.8, Glucose 99, Calcium 8.9 Micro: Microbiology 04/14/24 10:15 Mucosa - Throat Streptococcus pyogenes (PCR) - Final 04/14/24 10:15 Mucosa - Nose SARS-CoV-2, Influenza & RSV (PCR) - Final 04/14/24 10:12 Urine, Clean Catch Legionella Antigen - Final 04/14/24 10:12 Urine, Clean Catch Streptococcus pneumoniae Antigen (M - Final Physical Exam Const alert, oriented x3, no apparent distress and average body habitus Constitutional Narrative: Elderly male, mildly fatigued appearing, otherwise sitting up comfortably in bed, conversing normally, in no acute distress. General Appearance: cooperative and comfortable HEENT normocephalic, head/scalp atraumatic, hearing grossly normal bilaterally and nasal mucous membranes and turbinates normal Eyes PERRL, EOMs intact bilaterally and conjunctivae normal Neck full ROM Chest inspection of chest normal Resp normal respiratory effort and no use of accessory muscles Resp Narrative: Mildly decreased breath sounds bilaterally throughout. No wheezing or crackles noted. Breathing comfortably on 2 L nasal cannula at rest. Stable. Cardio no murmurs and peripheral pulses 2+ throughout Cardio Narrative: A-fib with slow ventricular response. GI normal to inspection, nondistended, normoactive bowel sounds, soft to palpation, non-tender and non-distended Back/Spine normal ROM Extremity normal to inspection and full ROM Extremity Narrative: +1-2 bilateral lower extremity edema, stable. Skin no rashes or lesions noted Neuro no focal motor deficits and no sensory deficits noted Speech: speech normal Psych mental status grossly normal Assessment & Plan Assessment/Plan (1) Nonsustained ventricular tachycardia: (2) Non-ischemic cardiomyopathy: (3) Atrial fibrillation: QUALIFIERS: Atrial fibrillation type: permanent Qualified Code(s): I48.21 - Permanent atrial fibrillation (4) CHF exacerbation: QUALIFIERS: Heart failure type: unspecified Qualified Code(s): I 50.9 - Heart failure, unspecified PLAN: Plan Patient is an 89-year-old male who presented to [facility] ED on 04/13/2024 with worsening shortness of breath. 1. Acute exacerbation of HFrEF with mild hypoxia, recently diagnosed nonischemic cardiomyopathy ? Cardiology following. Most recent echo on 03/18 showed EF 25%, stage II diastolic dysfunction, severe global hypokinesis, severely enlarged LA, moderate pulmonary hypertension. Per cardiology, suspected that new nonischemic cardiomyopathy was secondary to paroxysmal A-fib with slow ventricular response. Exacerbation presumed secondary to diuretic nonadherence at home. Improved with IV Lasix 40 mg twice daily, transitioned to p.o. lasix 40 mg twice daily on 04/17. Mild worsening of creatinine on 04/18, decreased to p.o. lasix 40 mg daily. Continue to monitor BMP and urine output daily. 2. Permanent A-fib with slow ventricular response; Nonsustained V tach ? Cardiology following as above. Rate has consistently been in the 40s to 50s since admission, stable. Not on any rate controlling agents. Not on anticoagulation due to fall risk. Has had multiple runs of nonsustained V. tach during this hospitalization. Electrolytes stable on multiple checks. Per cardiology, patient is high risk for runs of V. tach given nonischemic cardiomyopathy as noted above. Started on p.o. amiodarone 200 mg daily on 04/16. Patient remains hesitant on having AICD placed, will reconsider this in outpatient setting and notably this would need to be done outside of [place]. Planning for pacemaker placement on Friday 04/20, will need to remain inpatient until then per cardiology recs. Continue cardiac monitoring. 3. Concern for pneumonia ? Chest x-ray on admit with increased opacification in medial right lower lung concerning for possible pneumonia along with cardiomegaly stable from previous. Repeat chest x-ray on 04/14 stable. Infectious workup negative. No clinical signs of pneumonia. Antibiotics discontinued on 04/15. Continue to monitor. 4. Chronic iron deficiency anemia ? Baseline hemoglobin around 7.5-8.5. Hemoglobin stable at baseline. Repeat iron studies on 04/14 showed continued significant iron deficiency. Given 2 doses of IV iron 200 mg on 04/16 and 04/17. Monitor daily CBC. Continue p.o. iron supplement. Chronic medical conditions: ? Hypertension: Continue home losartan, amlodipine and hydralazine. ? Hyperlipidemia: Continue home statin. ? Type 2 diabetes mellitus: Home regimen of insulin glargine 8 units at night, metformin 500 mg daily, Sitagliptin 50 mg daily. Treating with Lantus 6 units at night plus sliding scale insulin with meals as needed while inpatient, adjust as needed. ? BPH with obstructive symptoms: Stable. Continue home Flomax. ? Neuropathy: Continue home gabapentin. ? History of gout: Continue home probenecid. DVT prophylaxis: Lovenox CODE STATUS: DNR CCA, DNI Expected disposition: Home, 3-4 days Total clinical time spent by myself addressing the patient's medical issues, reviewing all the data, and collaborating with patient's care team: 35 minutes. Charges/Coding Visit Charges Inpatient E&M: 71966 Subs Hosp L2
[2024-04-18 12:35] LABS: Bedside Glucose 125 mg/dL (74-106)
--- NOTE | 2024-04-18 16:31 | PCM.PN.CARD ---
Subjective Subjective Patient seen and evaluated today at bedside along with the nurse. and family were at bedside at time of evaluation Sitting up in the chair Complain of mild symptoms of dizziness today no symptoms of chest pain Objective Data Vital Signs: Vital Signs Temp Pulse Resp BP Pulse Ox O2 Del Method O2 Flow Rate 97.9 F 48 L 18 132/57 H 95 Nasal Cannula 2 04/18/24 13:25 04/18/24 13:04/18/24 13:04/18/24 13:04/18/24 13:04/18/24 13:04/18/24 14:50 Oxygen Flow Rate (L/min) 2 Oxygen Delivery Method Nasal Cannula Weight: 195 lb 1.745 oz Body Mass Index (BMI) 25.8 Intake & Output: Intake and Output for Last 24 Hours 04/16/24 04/17/24 04/18/24 23:59 23:59 23:59 Intake Total 447.92 / 447.92 1010 / 1010 240 / 240 Output Total 1000 / 1000 450 / 450 150 / 150 Balance -552.08 / -552.08 560 / 560 90 / 90 Lab / Micro Data 04/16/24 03:25 04/18/24 07:30 Labs: Laboratory Results - last 24 hr 04/17/24 20:07: POC Glucose 137 H 04/18/24 06:39: POC Glucose 91 04/18/24 07:30: Sodium 137, Potassium 4.0, Chloride 103, Carbon Dioxide 29.0, Anion Gap 5, BUN 25 H, Creatinine 1.69 H, Estim Creat Clear Calc 32.52, Est GFR (MDRD) Af Amer 49 L, Est GFR (MDRD) Non-Af 41 L, BUN/Creatinine Ratio 14.8, Glucose 99, Calcium 8.9 04/18/24 12:16: POC Glucose 125 H Cardiology Labs/Tests 04/18/24 07:30: Sodium 137, Potassium 4.0, Chloride 103, Carbon Dioxide 29.0, Anion Gap 5, BUN 25 H, Creatinine 1.69 H, Est GFR (MDRD) Af Amer 49 L, Est GFR (MDRD) Non-Af 41 L, BUN/Creatinine Ratio 14.8, Glucose 99, Calcium 8.9 Rhythm: EKG: ECHO: Stress Test: Cardiac Cath: PCI: CT Surgery: Holter monitor: EPS: PPM: CXR: Chest CT Scan: Assessment & Plan Assessment/Plan (1) Atrial fibrillation with slow ventricular response: (2) Nonsustained ventricular tachycardia: (3) Non-ischemic cardiomyopathy: (4) Left bundle branch block: PLAN: Plan 89-year-old patient with severe nonischemic cardiomyopathy EF around 25% Has paroxysmal atrial fibrillation Episodes of bradycardia and nonsustained V. tach on telemetry Started on amiodarone no further episodes of nonsustained V. tach. Patient declined ICD device Will continue to monitor on follow-up Is scheduled for pacemaker by his primary composing machine operator Dr. Sinclair on Saturday.
[2024-04-18 17:13] LABS: Bedside Glucose 157 mg/dL (74-106)
[2024-04-18 18:15] LABS: Bedside Glucose 138 mg/dL (74-106)
[2024-04-18] MEDS: Insulin Lispro 100 UNIT/ML INSULN.PEN SC (21:33)
[2024-04-18] MEDS: Insulin Glargine-YFGN 100 UNIT/ML Pen 6 UNIT SC (21:34)
[2024-04-18] MEDS: Latanoprost 0.005% 1 Bottle 1 DRP OPHTHALMIC (21:34)
[2024-04-18] MEDS: Pravastatin 40 MG Tablet PO (21:35)
[2024-04-18] MEDS: Tamsulosin HCl 0.4 MG Capsule 0.8 MG PO (21:35)
[2024-04-18] MEDS: Gabapentin 400 MG Capsule PO (21:35)
[2024-04-18] MEDS: amLODIPine 10 MG Tablet PO (21:35)
[2024-04-18 22:10] LABS: Bedside Glucose 165 mg/dL (74-106)
[2024-04-19] VITALS (20 sets, daily range): BP systolic 60–147; BP diastolic 43–64; PULSE 47–88; RESP 18–22; TEMP 36.2–36.6; O2SAT 84–100
[2024-04-19 06:48] LABS: Bedside Glucose 100 mg/dL (74-106)
[2024-04-19] MEDS: Polyethylene Glycol 3350 17 GM PACKET PO (09:34)
[2024-04-19] MEDS: Furosemide 40 MG Tablet PO (09:35)
[2024-04-19] MEDS: Folic Acid 1 MG Tablet PO (09:35)
[2024-04-19] MEDS: LINAGLIPTIN 5 MG TABLET PO (09:35)
[2024-04-19] MEDS: Ferrous Sulfate 325 MG Tablet PO (09:36)
[2024-04-19] MEDS: Senna/Docusate Sodium 1 Tablet 2 TABLET PO (09:36)
[2024-04-19] MEDS: Magnesium Chloride 64 MG Delay Rel.Tablet PO (09:37)
[2024-04-19] MEDS: hydrALAZINE 25 MG Tablet PO ×2 (09:37→14:29)
[2024-04-19] MEDS: guaiFENesin/D-Methorphan TAB.SR.12H 2 TABLET PO (09:37)
[2024-04-19] MEDS: Potassium Chloride Oral Tablet 20 MEQ PO (09:38)
[2024-04-19] MEDS: Menthol/Lanolin/Calamine/Znox 113 GM Tube 1 APPLIC TOPICAL ×2 (09:38→22:39)
[2024-04-19] MEDS: Cholecalciferol (VIT D3) 25 MCG TABLET (1,000 UNITS) PO (09:39)
[2024-04-19] MEDS: Losartan Potassium 100 MG Tablet PO (09:39)
[2024-04-19] MEDS: Cyanocobalamin 500 MCG Tablet 1000 MCG PO (09:39)
[2024-04-19] MEDS: Enoxaparin 40 MG/0.4 ML Syringe SC (09:40)
[2024-04-19] MEDS: Amiodarone 200 MG Tablet PO (09:40)
--- NOTE | 2024-04-19 11:11 | PN.HOSP_ITS ---
Reason for Visit Reason for Visit: Diagnoses Hyperlipidemia, unspecified (04/13/24) Essential (primary) hypertension (04/13/24) Nonrheumatic aortic (valve) stenosis (04/13/24) Other cardiomyopathies (04/13/24) Left bundle-branch block, unspecified (04/13/24) Other ventricular tachycardia (04/13/24) Permanent atrial fibrillation (04/13/24) Unspecified atrial fibrillation (04/13/24) Heart failure, unspecified (04/13/24) Thoracic aortic aneurysm, without rupture (04/13/24) Subjective Subjective No acute events overnight. Patient seen at bedside this morning, and daughter present. Sitting up comfortably in bed, conversing normally, in no acute distress. He is now off supplemental oxygen at rest as of this morning. Denies any chest pain or shortness of breath. Feels fine this morning, similar to previous days. No new concerns this morning. Objective Data Objective Data Vital Signs: Vital Signs Temp Pulse Resp BP Pulse Ox O2 Del Method O2 Flow Rate 97.7 F L 47 L 18 144/64 H 94 Room Air 1 04/19/24 09:30 04/19/24 09:37 04/19/24 09:30 04/19/24 09:37 04/19/24 09:30 04/19/24 09:30 04/19/24 09:30 Oxygen Flow Rate (L/min) 1 Oxygen Delivery Method Room Air Weight: 88.5 kg Body Mass Index (BMI) 25.8 Intake & Output: Intake and Output for Last 24 Hours 04/17/24 04/18/24 04/19/24 23:59 23:59 23:59 Intake Total 1010 / 1010 360 / 360 50 / 50 Output Total 450 / 450 350 / 750 400 / 400 Balance 560 / 560 10 / -390 -350 / -350 Lab / Micro Data 04/16/24 03:25 04/18/24 07:30 Labs: Laboratory Results - last 24 hr 04/18/24 12:16: POC Glucose 125 H 04/18/24 16:54: POC Glucose 157 H 04/18/24 17:33: POC Glucose 138 H 04/18/24 21:27: POC Glucose 165 H 04/19/24 06:29: POC Glucose 100 Micro: Microbiology 04/14/24 10:15 Mucosa - Throat Streptococcus pyogenes (PCR) - Final 04/14/24 10:15 Mucosa - Nose SARS-CoV-2, Influenza & RSV (PCR) - Final 04/14/24 10:12 Urine, Clean Catch Legionella Antigen - Final 04/14/24 10:12 Urine, Clean Catch Streptococcus pneumoniae Antigen (M - Final Physical Exam Const alert, oriented x3, no apparent distress and average body habitus Constitutional Narrative: Elderly male, mildly fatigued appearing, otherwise sitting up comfortably in bed, conversing normally, in no acute distress. Stable. General Appearance: cooperative and comfortable HEENT normocephalic, head/scalp atraumatic and nasal mucous membranes and turbinates normal HEENT Narrative: Hard of hearing. Eyes PERRL, EOMs intact bilaterally and conjunctivae normal Neck full ROM Chest inspection of chest normal Resp normal respiratory effort and no use of accessory muscles Resp Narrative: Mildly decreased breath sounds bilaterally throughout. No wheezing or crackles noted. Breathing comfortably on room air at rest. Cardio no murmurs and peripheral pulses 2+ throughout Cardio Narrative: A-fib with slow ventricular response. GI normal to inspection, nondistended, normoactive bowel sounds, soft to palpation, non-tender and non-distended Back/Spine normal ROM Extremity normal to inspection and full ROM Extremity Narrative: +1-2 bilateral lower extremity edema, stable. Skin no rashes or lesions noted Neuro no focal motor deficits and no sensory deficits noted Speech: speech normal Psych mental status grossly normal Assessment & Plan Assessment/Plan (1) Nonsustained ventricular tachycardia: (2) Non-ischemic cardiomyopathy: (3) Atrial fibrillation: QUALIFIERS: Atrial fibrillation type: permanent Qualified Code(s): I48.21 - Permanent atrial fibrillation (4) CHF exacerbation: QUALIFIERS: Heart failure type: unspecified Qualified Code(s): I 50.9 - Heart failure, unspecified PLAN: Plan Patient is an 89-year-old male who presented to [facility] ED on 04/13/2024 with worsening shortness of breath. 1. Acute exacerbation of HFrEF with mild hypoxia, recently diagnosed nonischemic cardiomyopathy ? Cardiology following. Most recent echo on 03/18 showed EF 25%, stage II diastolic dysfunction, severe global hypokinesis, severely enlarged LA, moderate pulmonary hypertension. Per cardiology, suspected that new nonischemic cardiomyopathy was secondary to paroxysmal A-fib with slow ventricular response. Exacerbation presumed secondary to diuretic nonadherence at home. Improved with IV Lasix 40 mg twice daily, transitioned to p.o. lasix 40 mg twice daily on 04/17. Mild worsening of creatinine on 04/18, decreased to p.o. lasix 40 mg daily. Continue to monitor BMP and urine output daily. 2. Permanent A-fib with slow ventricular response; Nonsustained V tach ? Cardiology following as above. Rate has consistently been in the 40s to 50s since admission, stable. Not on any rate controlling agents. Not on anticoagulation due to fall risk. Has had multiple runs of nonsustained V. tach during this hospitalization. Electrolytes stable on multiple checks. Per cardiology, patient is high risk for runs of V. tach given nonischemic cardiomyopathy as noted above. Started on p.o. amiodarone 200 mg daily on 04/16. Patient remains hesitant on having AICD placed, will reconsider this in outpatient setting and notably this would need to be done outside of [place]. Planning for pacemaker placement on Friday 04/20, will need to remain inpatient until then per cardiology recs. Continue cardiac monitoring. 3. Concern for pneumonia ? Chest x-ray on admit with increased opacification in medial right lower lung concerning for possible pneumonia along with cardiomegaly stable from previous. Repeat chest x-ray on 04/14 stable. Infectious workup negative. No clinical signs of pneumonia. Antibiotics discontinued on 04/15. Continue to monitor. 4. Chronic iron deficiency anemia ? Baseline hemoglobin around 7.5-8.5. Hemoglobin stable at baseline. Repeat iron studies on 04/14 showed continued significant iron deficiency. Given 2 doses of IV iron 200 mg on 04/16 and 04/17. Monitor daily CBC. Continue p.o. iron supplement. Chronic medical conditions: ? Hypertension: Continue home losartan, amlodipine and hydralazine. ? Hyperlipidemia: Continue home statin. ? Type 2 diabetes mellitus: Home regimen of insulin glargine 8 units at night, metformin 500 mg daily, Sitagliptin 50 mg daily. Treating with Lantus 6 units at night plus sliding scale insulin with meals as needed while inpatient, adjust as needed. ? BPH with obstructive symptoms: Stable. Continue home Flomax. ? Neuropathy: Continue home gabapentin. ? History of gout: Continue home probenecid. DVT prophylaxis: Lovenox CODE STATUS: DNR CCA, DNI Expected disposition: Home, 2 to 3 days Total clinical time spent by myself addressing the patient's medical issues, reviewing all the data, and collaborating with patient's care team: 35 minutes. Charges/Coding Visit Charges Inpatient E&M: 61353 Subs Hosp L2
[2024-04-19 11:50] LABS: Bedside Glucose 138 mg/dL (74-106)
--- NOTE | 2024-04-19 13:00 | PN.CARD_ITS ---
<Statement entered by Vickey Smith MD - 04/19/24 13:09> Pt seen & evaluated w/TRIXIE. I personally interviewed & exam the pt. I was involved in all aspects of pt's orders, interpretation of results & treatment Subjective Subjective Seen and evaluated today at bedside family were at bedside Does have difficulty with sleep last night with shortness of breath no symptoms of chest pain reported.. Objective Data Vital Signs: Vital Signs Temp Pulse Resp BP Pulse Ox O2 Del Method O2 Flow Rate 97.7 F L 47 L 18 144/64 H 84 Room Air 1 04/19/24 09:30 04/19/24 09:37 04/19/24 09:30 04/19/24 09:37 04/19/24 11:54 04/19/24 09:30 04/19/24 09:30 Oxygen Flow Rate (L/min) 1 Oxygen Delivery Method Room Air Weight: 195 lb 1.745 oz Body Mass Index (BMI) 25.8 Intake & Output: Intake and Output for Last 24 Hours 04/17/24 04/18/24 04/19/24 23:59 23:59 23:59 Intake Total 1010 / 1010 360 / 360 290 / 290 Output Total 450 / 450 350 / 750 600 / 600 Balance 560 / 560 10 / -390 -310 / -310 Lab / Micro Data 04/16/24 03:25 04/18/24 07:30 Labs: Laboratory Results - last 24 hr 04/18/24 16:54: POC Glucose 157 H 04/18/24 17:33: POC Glucose 138 H 04/18/24 21:27: POC Glucose 165 H 04/19/24 06:29: POC Glucose 100 04/19/24 11:28: POC Glucose 138 H Cardiology Labs/Tests Rhythm: EKG: ECHO: Stress Test: Cardiac Cath: PCI: CT Surgery: Holter monitor: EPS: PPM: CXR: Chest CT Scan: Physical Exam Cardio Cardio Narrative: site monitor showed A-fib with controlled ventricular rate Cardiovascular exam S1-S2 is irregular Chest exam mildly diminished air entry bilateral with minimal bilateral basal rales. Assessment & Plan Assessment/Plan (1) Left bundle branch block: (2) Non-ischemic cardiomyopathy: (3) Atrial fibrillation: QUALIFIERS: Atrial fibrillation type: permanent Qualified Code(s): I48.21 - Permanent atrial fibrillation (4) Thoracic aortic aneurysm without rupture: PLAN: Plan 89-year-old patient with multiple medical comorbidities Extensive cardiac history With severe nonischemic cardiomyopathy with EF in the range of around 25 Declined ICD device Also has a left bundle branch block with permanent pacemaker Has compliant diastolic/acute on chronic systolic heart failure with a recent echo in March 18 EF 25% With grade 2 diastolic dysfunction. Severe global LV hypokinesia with severely enlarged left atrium and moderate pulm hypertension Has episode of nonsustained ventricular tachycardia started on amiodarone since then he remains in A-fib with controlled ventricular rate No further episode of nonsustained ventricular tachycardia. Cardiac care plan; I reviewed and discussed his current medication Patient is scheduled for single-lead permanent pacemaker tomorrow by his primary senior policy associate Review cardiac medication and importance of enforce adherence to medication and compliance. Vickey Smith MD,FACC,[facility]
[2024-04-19] MEDS: Insulin Lispro 100 UNIT/ML INSULN.PEN SC ×2 (16:40→22:25)
[2024-04-19 17:02] LABS: Bedside Glucose 150 mg/dL (74-106)
--- NOTE | 2024-04-19 20:10 | NURSING ---
D/t rapid response and change in patient condition; daughter (Kaylee) notified; she is listed as person to notify. Notified that patient has had a change in condition. His blood pressure has dropped and he is being moved to ICU and a team is being called in for an emergent upper scope. Kaylee states she is coming from [place] and will be in to the hospital in around 30 minutes.
[2024-04-19] MEDS: 0.9% Normal Saline (Pres. free 10 ML Vial (20:41)
[2024-04-19] MEDS: Epinephrine (1 mg/ml) 1 MG/ML VIAL (20:41)
--- NOTE | 2024-04-19 20:41 | PCM.HOSP.N ---
Hospitalist Note Patient with onset hematemesis with staff immediate contact to Dr. Pearce who requested stat H&H and 1 unit PRBC ordered. Patient blood pressure decreased with systolic in the 60s. Requesting 500 cc IV fluid bolus immediately. Patient being transition now to the ICU. He denies any abdominal pain or discomfort and is cognizant and able to carry on a conversation. Discussed current situation and plan for upper endoscopy which was discussed with Dr. Pearce emergently. Discussed CODE status at length including difference between FULL code, DNR-CCA and DNR-CC status. Following discussions about the differences in these status, requested continuation of DNR CCA, no intubation and discussed concept of using pressor therapy to which she is amenable but only low-dose peripherally and no central line is to be placed or aggressive measures. He is amenable to having the upper endoscopy performed however. Steam Table Worker team will also be consulted and contacted. Procedures Hospitalists Procedures: [id number] Advncd Care Plan 30 Min
[2024-04-19 20:42] LABS: Hematocrit 22.1 % (40-54); Hemoglobin 6.2 g/dL (13.0-16.5)
[2024-04-19] MEDS: 0.9% Normal Saline (500mL Bag) 500 ML 999 ML IV ×2 (20:45→22:29)
[2024-04-19] MEDS: Norepinephrine 8 MG in 0.9% Normal Saline (250mL Bag) 242 ML 9.4 MG CONT INF (20:45)
[2024-04-19] MEDS: Pantoprazole Sodium 80 MG in 0.9% Normal Saline (100mL Bag) 80 ML 10 MG CONT INF (20:46)
--- NOTE | 2024-04-19 21:24 | CON.PCM.CC_ITS ---
HPI Consult Data Date of Consult: 04/19/24 HPI Narrative HPI Narrative: JASON STANLEY, is a 89yo M w/ CHF EF 25%, Afib, aortic stenosis, PAD, CKD, h/o colon Ca, iron deficiency anemia, thoracic aneurysm, DM came in for worsening dyspnea and hypoxia. Denied fevers/chills, chest pain, vomiting on admission. Started on IV diuresis for presumed CHF exacerbation with improvement in dyspnea. Noted to have recurrent NSVT, cardiology consulted and added amiodarone for this. ICD was recommend but pt declined; alternatively he was agreeable to at least PM and so this was tentatively planned for tmrw. GI was also consulted due to ST concern for esophageal dysphagia. EGD was performed 04/16 showing angiodysplasia in stomach which was cauterized; small EV noted as well. He was also started on empiric abx for possible CAP, however this was stopped on 04/15 d/t low concern for infection. He was feeling overall improved this AM and weaned off O2. However this evening he developed sudden large volume hematemesis, and hypotension and systolics in the 60s. Therefore transferred to ICU, and GI physician was consulted who performed emergent bedside EGD. Pt transfused 1U pRBC and started on peripheral levophed, however he declined central line or any other invasive procedures other than EGD. Repeat EGD now showed bleeding gastric angiodysplasia near previous lesion, and this was treated with epi and cautery. He has had 2 additional episodes of hematemesis during endoscopy, and melena as well. s/p IVF bolus as well. He was awake/oriented by report on transfer to ICU, however now drowsy after receiving sedation for EGD and not answering questions. Per family he has not had GI bleed before. ROS: As per HPI, unable to obtain further given pt lethargy [facility] Medical History (Updated 04/17/24 @ 13:30 by Kelsy Duckworth) Atrial fibrillation with slow ventricular response Hypothyroidism Non-smoker Peripheral vascular disease Prostate cancer Lumbar stenosis Gout DDD (degenerative disc disease) Carotid artery stenosis Chronic diastolic (congestive) heart failure Non-rheumatic aortic stenosis Atherosclerosis of coronary artery of [place] heart without angina pectoris Secondary pulmonary arterial hypertension Essential (primary) hypertension Left bundle branch block Stool guaiac positive Iron deficiency anemia Personal history of colonic polyps History of malignant neoplasm of colon Dysphasia Chronic kidney disease, stage III (moderate) Thoracic aortic aneurysm without rupture Colon cancer, ascending Dyslipidemia Type II diabetes mellitus Home Medications ?Medication ?Instructions ?Recorded ?Last Taken ?Type pravastatin 40 mg tablet 40 mg PO QHS cholesterol 05/14/16 03/17/24 History probenecid 500 mg tablet 500 mg PO DAILY gout 05/14/16 03/18/24 History aspirin 81 mg tablet,delayed 81 mg PO DAILY@0800 heart health 07/16/16 03/18/24 History release cholecalciferol (vitamin D3) 25 1,000 unit PO DAILY vitamin 07/16/16 03/18/24 History mcg (1,000 unit) tablet cyanocobalamin (vitamin B-12) 1,000 mcg PO DAILY supplement 07/16/16 04/12/24 History 1,000 mcg tablet metformin 500 mg 24 hr 500 mg PO DAILY diabetes 07/16/16 03/18/24 History tablet,extended release (gastric retention) losartan 100 mg tablet (Cozaar) 150 mg PO DAILY BP 06/25/19 03/18/24 History sitagliptin phosphate 50 mg tablet 50 mg PO DAILY diabetes 06/25/19 03/18/24 History tamsulosin 0.4 mg capsule (Flomax) 0.8 mg PO QHS urination 06/25/19 03/17/24 History docusate sodium 100 mg capsule 100 mg PO BID PRN sool softener 09/11/19 Unknown History (Colace) ferrous sulfate 325 mg (65 mg 325 mg PO BID iron supplement 09/11/19 04/12/24 History iron) tablet (Feosol) folic acid 400 mcg tablet 800 mcg PO DAILY vitamin 09/11/19 04/12/24 History insulin glargine 100 unit/mL (3 8 unit subcut QHS diabetes 09/11/19 03/17/24 History mL) subcutaneous pen amlodipine 10 mg tablet See Rx Instructions .Route 03/18/24 03/17/24 History .COMPLEX BP blood sugar diagnostic (True 03/18/24 Unknown History Metrix Glucose Test Strip) gabapentin 400 mg capsule 400 mg PO QHS nerve pain 03/18/24 03/18/24 History latanoprost 0.005 % eye drops 1 drp ophthalmic (eye) QHS eye 03/18/24 03/17/24 History health magnesium chloride 71.5 mg 71.5 mg PO BID supplement 03/18/24 03/18/24 History (magnesium chloride) tablet,delayed release pen needle, diabetic 31 gauge x 03/18/24 Unknown History 01/31 (Droplet Pen Needle) potassium chloride 20 mEq 20 meq PO DAILY supplement 03/18/24 03/18/24 History tablet,extended release(part/cryst) furosemide 40 mg tablet (Lasix) 40 mg PO BIDCM #120 tabs 03/20/24 04/12/24 Rx hydralazine 50 mg tablet 50 mg PO 4X/DAY 04/02/24 Unknown History Allergy/AdvReac Type Severity Reaction Status Date / Time Milk Containing Products AdvReac NEEDS Verified 04/13/24 17:29 (Dairy) (Milk Containing FOLLOW-UP Products) quinapril (From Accupril) AdvReac Other Verified 04/13/24 17:29 Family History Mother Colon cancer Heart disease Hypertension CAD (coronary artery disease) Father Cancer prostate CVA (cerebral vascular accident) CAD (coronary artery disease) Brother CAD (coronary artery disease) CABG Brother CAD (coronary artery disease) CABG Surgical History History of left heart catheterization (07/2001) H/O colectomy S/P colonoscopy S/P cataract extraction Status post colectomy Social History household members: spouse Smoking Status: Former smoker how long ago did patient quit smokin years ago alcohol intake: never substance use type: does not use Objective Data Objective Data Vital Signs: Vital Signs Last response 3 Temperature 36.2 C L 04/19/24 17:45 Temperature Source Temporal 04/19/24 17:45 Pulse Rate 64 04/19/24 21:00 Pulse Strength Weak (1+) 04/19/24 07:19 Respiratory Rate 22 H 04/19/24 21:00 Respiratory Effort Normal, Non-Labored 04/19/24 20:57 Respiratory Depth Normal 04/19/24 20:57 Respiratory Pattern Normal 04/19/24 20:57 Blood Pressure 114/64 04/19/24 21:15 Blood Pressure Mean 80 04/19/24 21:15 Blood Pressure Source Monitor 04/19/24 21:15 Blood Pressure Position Semi-Fowlers 04/19/24 21:15 Blood Pressure Location Right Arm 04/19/24 21:15 Baseline BP 138/62 04/16/24 12:15 Pulse Ox 100 04/19/24 21:00 Oxygen Delivery Method Nasal Cannula 04/19/24 21:00 Oxygen Flow Rate (L/min) 3 04/19/24 21:00 I&O: I&O Last 24 Hours 3 04/18/24 04/19/24 04/19/24 23:59 11:59 23:59 Intake Total 360 / 360 290 / 657.05 367.05 / 657.05 Output Total 350 / 750 600 / 1100 500 / 1100 Balance 10 / -390 -310 / -442.95 -132.95 / -442.95 I&O: Total Stay 3 04/13/24 17:28 thru 04/19/24 21:15 Intake Total 3989.97 Output Total 7425 Balance -3435.03 Current Meds Ordered / Administered: Current meds ordered / Administered 3 Generic Name Dose Route Start Last Admin Trade Name Freq PRN Reason Stop Dose Admin Acetaminophen 650 mg 04/15/24 16:58 04/15/24 22:48 Acetaminophen 325 Mg Tablet PO 650 mg Q6H PRN PRN Administration HEADACHE/FEVER (T>100F) Albuterol/Ipratropium 3 ml 04/15/24 09:01 Ipratropium/Albuterol Sulfate 3 Ml Ampul.Neb INHALATION Q6H.RT PRN SHORTNESS OF BREATH Amiodarone HCl 200 mg 04/16/24 13:15 04/19/24 09:40 Amiodarone 200 Mg Tablet PO 200 mg DAILY IRIAS Administration Calamine/Phenol 1 applic 04/14/24 10:00 04/19/24 09:38 Menthol/Lanolin/Calamine/Znox 113 Gm Tube TOPICAL 1 applic BID IRAIS Administration Protocol Cholecalciferol 25 mcg 04/14/24 10:00 04/19/24 09:39 Cholecalciferol (Vit D3) 25 Mcg Tablet (1,000 Units) PO 25 mcg DAILY IRAIS Administration Cyanocobalamin 1,000 mcg 04/14/24 10:00 04/19/24 09:39 Cyanocobalamin 500 Mcg Tablet PO 1,000 mcg DAILY IRAIS Administration Dextrose 0 gm 04/14/24 08:53 Dextrose 50%-Water 25 Gm/50 Ml Disp.Syrin IV X1 PRN Hypoglycemia Protocol Enoxaparin Sodium 40 mg 04/18/24 10:00 04/19/24 09:40 Enoxaparin 40 Mg/0.4 Ml Syringe SC 04/20/24 00:01 40 mg DAILY IRAIS Administration Ferrous Sulfate 325 mg 04/15/24 12:00 04/19/24 09:36 Ferrous Sulfate 325 Mg Tablet PO 325 mg DAILY@1200 IRAIS Administration Folic Acid 1 mg 04/14/24 08:00 04/19/24 09:35 Folic Acid 1 Mg Tablet PO 1 mg DAILYCM IRAIS Administration Furosemide 40 mg 04/19/24 23:00 Furosemide 40 Mg/4 Ml Vial IV 04/19/24 23:01 X1 ONE Protocol Gabapentin 400 mg 04/13/24 22:22 04/18/24 21:35 Gabapentin 400 Mg Capsule PO 400 mg QHS IRAIS Administration Glucagon 1 mg 04/14/24 08:53 Glucagon 1 Mg/Ml Syringe IM X1 PRN Hypoglycemia Guaifenesin 2 tablet 04/14/24 10:00 04/19/24 09:37 Guaifenesin/D-Methorphan Tab.Sr.12h PO 2 tablet BID IRAIS Administration Sodium Chloride 250 mls @ 15 mls/hr 04/13/24 22:40 IV .[id number] PRN Additional IVPB Infusion Sodium Chloride 250 mls @ 15 mls/hr 04/13/24 22:40 IV .[id number] PRN Saline Flush Sodium Chloride 1,000 mls @ 15 mls/hr 04/16/24 10:55 04/18/24 12:08 IV Not Given .Q48H IRAIS Pantoprazole Sodium 80 mg/ 100 mls @ 10 mls/hr 04/19/24 20:20 04/19/24 20:46 Sodium Chloride CONT INF 10 mls/hr Q10H IRAIS Administration Norepinephrine Bitartrate 8 mg 250 mls @ 9.375 mls/hr 04/19/24 20:20 04/19/24 21:15 / Sodium Chloride CONT INF 10 mcg/min .[id number] IRAIS 18.8 mls/hr Titration Protocol 5 MCG/MIN Insulin Glargine 6 unit 04/14/24 22:00 04/18/24 21:34 Insulin Glargine-Yfgn 100 Unit/Ml Pen SC 6 unit QHS [facility] Administration Insulin Human Lispro 0 unit 04/14/24 11:00 04/19/24 16:40 Insulin Lispro 100 Unit/Ml Insuln.Pen SC 2 units ACHS [facility] Administration Protocol Latanoprost 1 drp 04/13/24 22:22 04/18/24 21:34 Latanoprost 0.005% 1 Bottle OPHTHALMIC 1 drp QHS [facility] Administration Linagliptin 5 mg 04/14/24 10:00 04/19/24 09:35 Linagliptin 5 Mg Tablet PO 5 mg DAILY IRAIS Administration Magnesium Chloride 64 mg 04/13/24 22:22 04/19/24 09:37 Magnesium Chloride 64 Mg Delay Rel.Tablet PO 64 mg BID [facility] Administration Potassium Chloride 20 meq 04/14/24 08:00 04/19/24 09:38 Potassium Chloride Oral Tablet 20 Meq PO 20 meq DAILYCM [facility] Administration Pravastatin Sodium 40 mg 04/13/24 22:22 04/18/24 21:35 Pravastatin 40 Mg Tablet PO 40 mg QHS [facility] Administration Probenecid 500 mg 04/14/24 08:00 04/19/24 09:38 Probenecid 500 Mg Tablet PO 500 mg DAILYCM [facility] Administration Senna/Docusate Sodium 2 tablet 04/14/24 10:00 04/19/24 09:36 Senna/Docusate Sodium 1 Tablet PO 2 tablet BID [facility] Administration Sodium Chloride 10 - 40 ml 04/13/24 22:40 0.9% Saline Lock 10 Ml Syringe IV UD PRN SALINE FLUSH Tamsulosin HCl 0.8 mg 04/13/24 22:22 04/18/24 21:35 Tamsulosin Hcl 0.4 Mg Capsule PO 0.8 mg QHS [facility] Administration Lab / Micro Data 04/19/24 20:30 04/18/24 07:30 Labs: Laboratory Results - last 24 hr 04/18/24 21:27: POC Glucose 165 H 04/19/24 06:29: POC Glucose 100 04/19/24 11:28: POC Glucose 138 H 04/19/24 16:38: POC Glucose 150 H 04/19/24 20:30: Hgb 6.2 L, Hct 22.1 L, Crossmatch See Detail Assessment and Plan . Assessment and plan: Physical Exam: Gen - NAD, well-developed, elderly HEENT - MMM. Sclera anicteric Resp - CTAB. Breathing nonlabored CV - RRR. No m/g/r Abd - Soft, NT, ND Ext - No c/c/e. Skin - No rashes? Neuro - Drowsy after receiving procedural sedation. Can open eyes but falls back asleep, not answering questions I have reviewed the pertinent vital sign, laboratory, and imaging data. ASSESSMENT: # Hemorrhagic shock # Acute GI bleed - 2/2 bleeding gastric dieulafoy lesion, s/p emergent EGD tonight and epi and cautery. Had EGD on 04/16 with cautery of dieulafoy lesion as well # Acute on chronic anemia - h/o chronic iron deficiency # CHF EF 25% # Afib # NSVT # Aortic stenosis # Acute encephalopathy - suspect / procedural sedation # PAD # JENNIFER on CKD # h/o colon Ca # Thoracic aneurysm # DM PLAN: -Wean levophed to keep MAP > 65, currently 10 mcg/min. Pt refused CVL -Transfusing 2U pRBC. Follow Hgb after this, check coags, LFTs -On 4L NC, wean to keep sats > 90%. Obtain ABG if worsening hypoxia/lethargy -GI following, s/p emergent EGD as above. Cont PPI gtt -s/p IVF bolus, may need additional pending hemodynamics. Hold lasix for now -Was initially planned for PM placement tmrw though will have to hold off on this for now until clinically stable. Cardiology following -Monitor for recurrent RVR/NSVT, may need to start amio gtt FEN/GI: NPO Proph DVT/GI: SCDs, PPI gtt Code status: DNR/DNI Updated family at bedside Critical Care Time: 60 mins The entirety of this encounter was completed via telemedicine
--- NOTE | 2024-04-19 22:07 | EX.PCM.PN.GI ---
Subjective Subjective I was called in to see the patient at the bedside after he had gross hematemesis. Due to very low blood pressure after hematemesis rapid response was called and he was sent up to the ICU. He was started on pressor therapy. He is on Levophed at 10 mcg/minute. We performed emergent upper endoscopy at the bedside. About 500 mL of bright red blood was aspirated from his stomach. There is also a lot of coffee ground bloody material in his stomach. 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 This lesion was treated with 6 of epinephrine followed by cautery and Hemospray. During the procedure he was given Harjeet-Synephrine. Currently his blood pressure is maintained in the 80s over 50s and heart rate ranging from 90s to 110. He is able to compensate at the bedside. He is also on 4 L of oxygen. Objective Data Objective Data Vital Signs: Vital Signs Temp Pulse Resp BP Pulse Ox O2 Del Method O2 Flow Rate 97.2 F L 64 22 H 114/64 100 Nasal Cannula 3 04/19/24 17:45 04/19/24 21:00 04/19/24 21:00 04/19/24 21:15 04/19/24 21:00 04/19/24 21:00 04/19/24 21:00 Oxygen Flow Rate (L/min) 3 Oxygen Delivery Method Nasal Cannula Weight: 195 lb 1.745 oz Body Mass Index (BMI) 25.8 Intake & Output: Intake and Output for Last 24 Hours 04/17/24 04/18/24 04/19/24 23:59 23:59 23:59 Intake Total 1010 / 1010 360 / 360 657.05 / 657.05 Output Total 450 / 450 350 / 750 1100 / 1100 Balance 560 / 560 10 / -390 -442.95 / -442.95 Lab / Micro Data 04/19/24 20:30 04/18/24 07:30 Labs: Laboratory Results - last 24 hr 04/18/24 21:27: POC Glucose 165 H 04/19/24 06:29: POC Glucose 100 04/19/24 11:28: POC Glucose 138 H 04/19/24 16:38: POC Glucose 150 H 04/19/24 20:30: Hgb 6.2 L, Hct 22.1 L, Blood Type A POSITIVE, Antibody Screen NEGATIVE, Crossmatch See Detail 04/19/24 20:30: Crossmatch See Detail Micro: Microbiology 04/14/24 10:15 Mucosa - Throat Streptococcus pyogenes (PCR) - Final 04/14/24 10:15 Mucosa - Nose SARS-CoV-2, Influenza & RSV (PCR) - Final 04/14/24 10:12 Urine, Clean Catch Legionella Antigen - Final 04/14/24 10:12 Urine, Clean Catch Streptococcus pneumoniae Antigen (M - Final Physical Exam Cardio Cardio Narrative: vehicle monitor technician showed A-fib with controlled ventricular rate Cardiovascular exam S1-S2 is irregular Chest exam mildly diminished air entry bilateral with minimal bilateral basal rales. Assessment & Plan Assessment/Plan (1) Nonsustained ventricular tachycardia: (2) Non-ischemic cardiomyopathy: (3) Atrial fibrillation: QUALIFIERS: Atrial fibrillation type: permanent Qualified Code(s): I48.21 - Permanent atrial fibrillation (4) CHF exacerbation: QUALIFIERS: Heart failure type: unspecified Qualified Code(s): I50.9 - Heart failure, unspecified PLAN: Plan Patient is an 89-year-old male who presented to [facility] ED on 04/13/2024 with worsening shortness of breath. He was diagnosed with an acute exacerbation of HFrEF with mild hypoxia, and recently was admitted with a diagnosis of nonischemic cardiomyopathy. His EF 25%, stage II diastolic dysfunction, severe global hypokinesis, severely enlarged LA, moderate pulmonary hypertension. Per cardiology, he was scheduled to get a pacemaker placed tomorrow. Today he developed an acute recurrent upper GI bleed possibly exacerbated by Lovenox status post endoscopic treatment with hemostasis currently. I will give him 2 units of packed red blood cells with Lasix in between. His current hemoglobin is 6.2 which is down from 8. Guarded prognosis. Everything was explained to the family at the bedside. . Charges/Coding Visit Charges Inpatient E&M: 94941 Subs Hosp L3
[2024-04-19] MEDS: 0.9% Saline Lock 10 ML Syringe IV (22:24)
[2024-04-19] MEDS: Latanoprost 0.005% 1 Bottle 1 DRP OPHTHALMIC (22:24)
[2024-04-19] MEDS: Insulin Glargine-YFGN 100 UNIT/ML Pen 6 UNIT SC (22:25)
[2024-04-19 22:48] LABS: Bedside Glucose 239 mg/dL (74-106)
[2024-04-20] VITALS (21 sets, daily range): BP systolic 100–144; BP diastolic 52–79; PULSE 57–78; RESP 16–24; TEMP 36.4–37.1; O2SAT 94–100; BMI 25.8
[2024-04-20 00:47] LABS: Hematocrit 24.8 % (40-54); Hemoglobin 7.4 g/dL (13.0-16.5)
--- NOTE | 2024-04-20 00:50 | NURSING ---
Rapid response called on PCU for pt vomiting blood and severe hypotension. Pt emergently transferred to ICU for further care. Dr. Pearce, endo team, and ELECT[employer]IC [employer]OR MECH[employer]IC at bedside for EGD.
[2024-04-20 01:04] LABS: AST(SGOT) 23 U/L (15-37); Alanine Aminotransfer ALT/SGPT 19 U/L (16-61); Albumin, Serum 1.9 g/dL (3.2-5.0); Alkaline Phosphatase 33 U/L (45-117); Bilirubin, Direct 0.23 mg/dL (0.00-0.30); Globulin 3.9 g/dL (2.2-4.2); Protein, Total 5.8 g/dL (6.4-8.2)
[2024-04-20 01:07] LABS: Lactic Acid 3.1 mmol/L (0.4-1.9)
[2024-04-20 01:09] LABS: International Normalized Ratio 1.4; Prothrombin Time (Protime)PT. 16.7 SECONDS (11.7-14.9)
[2024-04-20 01:10] LABS: Partial Thromboplast Time 28.5 Seconds (24.1-36.2)
[2024-04-20 01:11] LABS: Fibrinogen 336 mg/dl (203-444)
[2024-04-20 03:25] LABS: Hematocrit 24.8 % (40-54); Hemoglobin 7.5 g/dL (13.0-16.5); Mean Corp Hgb Conc 30.2 g/dL (32-36); Mean Corpuscular Hgb 28.5 pg (27.0-32.0); Mean Corpuscular Volume 94.3 fL (80-94); Mean Platelet Vol. 10.2 fl (6.2-12.0); Platelet Count 205 K/mm3 (150-450); RBC Distribution Width CV 15.9 % (11.6-14.6); RBC Distribution Width SD 52.4 fl (35.1-43.9); Red Blood Count 2.63 M/mm3 (4.6-6.2); White Blood Count 12.3 K/mm3 (4.4-11.0)
[2024-04-20 03:35] LABS: Anion Gap 8 (5-15); BUN 54 mg/dL (7-18); BUN/Creat Ratio 31.6 RATIO (10-20); Calcium,Total 8.4 mg/dL (8.5-10.1); Chloride 108 mmol/L (98-107); Creatinine, Serum 1.71 mg/dL (0.70-1.30); EST Glomerular Filtration Rate 40 mL/min (>60); Est Glom Filt Rate - Afr Amer 49 mL/min (>60); Estimated Creatinine Clearance 32.14 ml/min; Glucose 204 mg/dL (74-106); Potassium 4.8 mmol/L (3.5-5.1); Sodium Level 142 mmol/L (136-145)
[2024-04-20 04:23] LABS: Reflex Lactate? Y
[2024-04-20] MEDS: 0.9% Saline Lock 10 ML Syringe IV (05:04)
[2024-04-20] MEDS: Pantoprazole Sodium 80 MG in 0.9% Normal Saline (100mL Bag) 80 ML 10 MG CONT INF ×2 (05:04→16:26)
[2024-04-20 05:06] LABS: Magnesium 2.1 mg/dL (1.6-2.6); Phosphorus 2.6 mg/dL (2.5-4.9)
[2024-04-20 05:27] LABS: Lactic Acid 1.6 mmol/L (0.4-1.9)
[2024-04-20] MEDS: CHLORHEXIDINE GLUC 2% CLOTH 1 EACH TOWELETTE TOPICAL (06:01)
[2024-04-20 07:45] LABS: Bedside Glucose 135 mg/dL (74-106)
--- NOTE | 2024-04-20 07:47 | PCM.PN.HOSP ---
Reason for Visit Reason for Visit: Diagnoses Hyperlipidemia, unspecified (04/13/24) Essential (primary) hypertension (04/13/24) Nonrheumatic aortic (valve) stenosis (04/13/24) Other cardiomyopathies (04/13/24) Left bundle-branch block, unspecified (04/13/24) Other ventricular tachycardia (04/13/24) Permanent atrial fibrillation (04/13/24) Unspecified atrial fibrillation (04/13/24) Heart failure, unspecified (04/13/24) Thoracic aortic aneurysm, without rupture (04/13/24) Subjective Subjective Patient is an 89-year-old male who presented to [facility] ED on 04/13/2024 with worsening shortness of breath. Patient was diagnosed with acute congestive heart failure with reduced ejection fraction. Hospital stay complicated by development of upper GI bleed for which patient underwent emergency EGD Objective Data Objective Data Vital Signs: Vital Signs Temp Pulse Resp BP Pulse Ox O2 Del Method O2 Flow Rate 98.8 F 68 20 H 137/61 H 99 Nasal Cannula 1 04/20/24 04:00 04/20/24 07:00 04/20/24 07:00 04/20/24 07:00 04/20/24 07:00 04/20/24 07:34 04/20/24 07:34 Oxygen Flow Rate (L/min) 1 Oxygen Delivery Method Nasal Cannula Weight: 88.4 kg Body Mass Index (BMI) 25.8 Intake & Output: Intake and Output for Last 24 Hours 04/18/24 04/19/24 04/20/24 23:59 23:59 23:59 Intake Total 360 / 360 1691.95 / 1710.75 151.15 / 151.15 Output Total 350 / 750 2350 / 2350 300 / 300 Balance 10 / -390 -658.05 / -639.25 -148.85 / -148.85 Lab / Micro Data 04/20/24 03:02 04/20/24 03:02 Labs: Laboratory Results - last 24 hr 04/19/24 11:28: POC Glucose 138 H 04/19/24 16:38: POC Glucose 150 H 04/19/24 20:30: Hgb 6.2 L, Hct 22.1 L, Blood Type A POSITIVE, Antibody Screen NEGATIVE, Crossmatch See Detail 04/19/24 20:30: Crossmatch See Detail 04/19/24 22:24: POC Glucose 239 H 04/20/24 00:18: Hgb 7.4 L, Hct 24.8 L, PT 16.7 H, INR 1.4, APTT 28.5, Fibrinogen 336, Lactic Acid 3.1 H*, Total Bilirubin 0.60, Direct Bilirubin 0.23, AST 23, ALT 19, Alkaline Phosphatase 33 L, Total Protein 5.8 L, Albumin 1.9 L, Globulin 3.9 04/20/24 03:02: WBC 12.3 H, RBC 2.63 L, Hgb 7.5 L, Hct 24.8 L, MCV 94.3 H, MCH 28.5, MCHC 30.2 L D, RDW Std Deviation 52.4 H, RDW Coeff of Rachelle 15.9 H, Plt Count 205, MPV 10.2, Sodium 142, Potassium 4.8, Chloride 108 H, Carbon Dioxide 26.0, Anion Gap 8, BUN 54 H, Creatinine 1.71 H, Estim Creat Clear Calc 32.14, Est GFR (MDRD) Af Amer 49 L, Est GFR (MDRD) Non-Af 40 L, BUN/Creatinine Ratio 31.6 H, Glucose 204 H, Calcium 8.4 L 04/20/24 03:10: Phosphorus 2.6, Magnesium 2.1 04/20/24 04:39: Lactic Acid 1.6 04/20/24 07:26: POC Glucose 135 H Micro: Microbiology 04/14/24 10:15 Mucosa - Throat Streptococcus pyogenes (PCR) - Final 04/14/24 10:15 Mucosa - Nose SARS-CoV-2, Influenza & RSV (PCR) - Final 04/14/24 10:12 Urine, Clean Catch Legionella Antigen - Final 04/14/24 10:12 Urine, Clean Catch Streptococcus pneumoniae Antigen (M - Final Physical Exam Narrative GENERAL: cooperative HEENT: Atraumatic; normocephalic EYES; Anicteric, Normal Conjunctiva NECK; supple, normal thyroid, RESPIRATORY: Diminished to auscultation CARDIOVASCULAR: Irregular S1 S2, GI: soft, normoactive bowel sounds, : No Renal angle tenderness; EXTREMITIES: No edema, no clubbing, MUSCULOSKELETAL: no muscle wasting NEURO: Awake; no lateralizing signs. SKIN: No Rash PSYCH; Flat affect Assessment & Plan Assessment/Plan (1) Nonsustained ventricular tachycardia: (2) Non-ischemic cardiomyopathy: (3) Atrial fibrillation: QUALIFIERS: Atrial fibrillation type: permanent Qualified Code(s): I48.21 - Permanent atrial fibrillation (4) CHF exacerbation: QUALIFIERS: Heart failure type: unspecified Qualified Code(s): I50.9 - Heart failure, unspecified PLAN: Plan Patient is an 89-year-old male who presented to [facility] ED on 04/13/2024 with worsening shortness of breath. Patient was diagnosed with acute congestive heart failure with reduced ejection fraction. Hospital stay complicated by development of upper GI bleed for which patient underwent emergency EGD 1. Acute exacerbation of HFrEF with mild hypoxia, recently diagnosed nonischemic cardiomyopathy - Most recent echo on 03/18 showed EF 25%, stage II diastolic dysfunction, severe global hypokinesis, severely enlarged LA, moderate pulmonary hypertension. Per cardiology, suspected that new nonischemic cardiomyopathy was secondary to paroxysmal A-fib with slow ventricular response. Exacerbation presumed secondary to diuretic nonadherence at home. Improved with IV Lasix 40 mg twice daily, transitioned to p.o. lasix 40 mg twice daily on 04/17. Mild worsening of creatinine on 04/18, decreased to p.o. lasix 40 mg daily. Continue to monitor BMP and urine output daily. 2. Permanent A-fib with slow ventricular response; Nonsustained V tach ? Rate has consistently been in the 40s to 50s since admission, stable. Not on any rate controlling agents. Not on anticoagulation due to fall risk. Has had multiple runs of nonsustained V. tach during this hospitalization. Electrolytes stable on multiple checks. Per cardiology, patient is high risk for runs of V. tach given nonischemic cardiomyopathy as noted above. Started on p.o. amiodarone 200 mg daily on 04/16. Patient remains hesitant on having AICD placed, will reconsider this in outpatient setting and notably this would need to be done outside of [place]. Plan is for patient to undergo pacemaker placement on 04/20/2024 3. Acute upper GI bleed ? Patient underwent EGD by Dr. Pearce on 04/19/2024. About 500 mL of bright red blood was aspirated from his stomach. There is also a lot of coffee ground bloody material in his stomach. 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 This lesion was treated with 6 of epinephrine followed by cautery and Hemospray. 4. Hypovolemic shock ? Secondary to upper GI bleed patient was treated Levophed which has since been weaned off 5. Anemia ? Secondary to combination of anemia of chronic disorder as well as acute blood loss anemia.Patient was transfused with 2 unit PRBC on 04/19/2024 anemia monitoring H&H and transfuse if patient becomes symptomatic or hemoglobin falls below 7 6. Essential hypertension ? Patient antihypertensives held following his episode of hypotension during his GI bleed 7. Dyslipidemia -Patient is on statin therapy, continued at home dose 8. Diabetes mellitus type II -patient's oral hypoglycemics held. Placed on long acting insulin, Accu-Cheks a.c. and at bedtime and covered with sliding scale insulin 9. BPH with lower urinary obstructive symptoms - Patient treated with tamsulosin 10. History of gout ? Patient is on probenecid 11. DVT prophylaxis ? Patient was on Lovenox discontinued following his GI bleed SCDs only for now Time spent in the patient's overall evaluation,decision-making process, review of diagnostic data, adjustment of management, discussion with other providers, nursing nursing and ancillary staff involved in patient's care documentation, 52 Minutes Charges/Coding Visit Charges Inpatient E&M: 00168 Subs Hosp L3
[2024-04-20] MEDS: 0.9% Normal Saline (1000mL) 1,000 ML 15 ML IV (08:27)
[2024-04-20] MEDS: Menthol/Lanolin/Calamine/Znox 113 GM Tube 1 APPLIC TOPICAL ×2 (11:03→23:15)
[2024-04-20 11:28] LABS: Bedside Glucose 136 mg/dL (74-106)
--- NOTE | 2024-04-20 11:39 | PN.CC_ITS ---
Assessment & Plan Assessment/Plan (1) Atrial fibrillation with slow ventricular response: (2) CHF exacerbation: QUALIFIERS: Heart failure type: unspecified Qualified Code(s): I 50.9 - Heart failure, unspecified PLAN: Plan RECOMMENDATIONS: 1. Continue supportive care per hospitalist, GI and cardiology. 2. Continue to monitor blood products and transfuse if hemoglobin drops below 7 g/dL. 3. Continue PPI therapy. 4. Given the patient's CODE STATUS, he can be transferred out of the medical intensive care unit from my perspective. 5. Will sign off from a critical care perspective. Please call with any additional questions. IMPRESSIONS: 1. Hemorrhagic shock (now resolved) secondary to bleeding gastric Dieulafoy lesion The patient was ultimately transferred to the medical intensive care unit in the setting of large-volume hematemesis and hypotension secondary to recurrent upper GI bleed. The patient was reevaluated by gastroenterology, received blood products and underwent repeat EGD with intervention. The patient has since stabilized from a clinical perspective and has been weaned from vasopressor support. It should be noted that the patient has requested a DNR CCA CODE STATUS and is not agreeable to central line placement or high-dose Levophed. Given the patient's improvement from a clinical perspective, he can be transferred out of the medical intensive care unit. Plan to continue to monitor blood counts and transfuse if hemoglobin drops below 7 g/dL. Continue PPI therapy as ordered. 2. Congestive heart failure/atrial fibrillation Cardiology is following tentative plans for pacemaker placement. Continue medical management per cardiology. 3. History of atrial fibrillation/aortic valve stenosis/peripheral arterial disease/acute on chronic kidney disease/history of colon CA Complicates care, management, recovery and prognosis. Continue supportive measures as noted above. CODE STATUS confirmed to be DNR CCA without intubation. This note was generated with [employer] dictation software. It may contain incorrect words, spelling, and punctuation that were not noted in checking the note before signing. Subjective Subjective The patient was seen and examined at the bedside this morning. Events from the last 24 hours have been reviewed. The patient is currently afebrile, hemodynamically stable and maintaining appropriate oxygen saturations on 2 L/min via nasal cannula. The patient has improved clinically following transfusion of blood products and repeat intervention by gastroenterology. Hemoglobin was last noted to be 7.5 g/dL. The patient is no longer requiring any form of vasopressor support. Objective Data Objective Data The patient's most recent lab work, culture data and imaging studies have all been personally reviewed. Vital Signs: Vital Signs Temp Pulse Resp BP Pulse Ox O2 Del Method O2 Flow Rate 98.7 F 72 17 125/62 H 94 Nasal Cannula 2 04/20/24 08:01 04/20/24 08:01 04/20/24 08:01 04/20/24 08:01 04/20/24 10:32 04/20/24 08:09 04/20/24 10:32 Oxygen Flow Rate (L/min) 2 Oxygen Delivery Method Nasal Cannula Weight: 194 lb 14.218 oz Body Mass Index (BMI) 25.8 Intake & Output: Intake and Output for Last 24 Hours 04/18/24 04/19/24 04/20/24 23:59 23:59 23:59 Intake Total 360 / 360 1691.95 / 1710.75 151.15 / 151.15 Output Total 350 / 750 2350 / 2350 700 / 700 Balance 10 / -390 -658.05 / -639.25 -548.85 / -548.85 Lab / Micro Data Attestation: I reviewed the patient's lab results. 04/20/24 03:02 04/20/24 03:02 Labs: Laboratory Results - last 24 hr 04/19/24 11:28: POC Glucose 138 H 04/19/24 16:38: POC Glucose 150 H 04/19/24 20:30: Hgb 6.2 L, Hct 22.1 L, Blood Type A POSITIVE, Antibody Screen NEGATIVE, Crossmatch See Detail 04/19/24 20:30: Crossmatch See Detail 04/19/24 22:24: POC Glucose 239 H 04/20/24 00:18: Hgb 7.4 L, Hct 24.8 L, PT 16.7 H, INR 1.4, APTT 28.5, Fibrinogen 336, Lactic Acid 3.1 H*, Total Bilirubin 0.60, Direct Bilirubin 0.23, AST 23, ALT 19, Alkaline Phosphatase 33 L, Total Protein 5.8 L, Albumin 1.9 L, Globulin 3.9 04/20/24 03:02: WBC 12.3 H, RBC 2.63 L, Hgb 7.5 L, Hct 24.8 L, MCV 94.3 H, MCH 28.5, MCHC 30.2 L D, RDW Std Deviation 52.4 H, RDW Coeff of Rachelle 15.9 H, Plt Count 205, MPV 10.2, Sodium 142, Potassium 4.8, Chloride 108 H, Carbon Dioxide 26.0, Anion Gap 8, BUN 54 H, Creatinine 1.71 H, Estim Creat Clear Calc 32.14, E st GFR (MDRD) Af Amer 49 L, Est GFR (MDRD) Non-Af 40 L, BUN/Creatinine Ratio 31.6 H, Glucose 204 H, Calcium 8.4 L 04/20/24 03:10: Phosphorus 2.6, Magnesium 2.1 04/20/24 04:39: Lactic Acid 1.6 04/20/24 07:26: POC Glucose 135 H 04/20/24 11:11: POC Glucose 136 H Micro: Microbiology 04/14/24 10:15 Mucosa - Throat Streptococcus pyogenes (PCR) - Final 04/14/24 10:15 Mucosa - Nose SARS-CoV-2, Influenza & RSV (PCR) - Final 04/14/24 10:12 Urine, Clean Catch Legionella Antigen - Final 04/14/24 10:12 Urine, Clean Catch Streptococcus pneumoniae Antigen (M - Final Physical Exam Const alert and no apparent distress General Appearance: cooperative HEENT normocephalic and head/scalp atraumatic Eyes PERRL, EOMs intact bilaterally and conjunctivae normal Neck supple General: trachea midline Chest inspection of chest normal Resp normal respiratory effort Auscultation: diminished lung sounds; Negative for rales, rhonchi or wheezes Cardio Rate: bradycardia Rhythm: abnormal rhythm GI normal to inspection, nondistended, normoactive bowel sounds Extremity no clubbing, cyanosis or edema Skin no rashes or lesions noted Neuro CN's II-XII intact bilaterally and no focal motor deficits Psych Mood & Affect: flat affect Charges/Coding Visit Charges Inpatient E&M: 18381 Subs Hosp L2
--- NOTE | 2024-04-20 13:08 | CHAPLAIN ---
Type of Pastoral Visit ___ Initial Visit _x__ Follow-up Visit ___ On-call Visit ___ General Patient Visit ___ Spiritual Assessment ___ Family Conference ___ Bereavement ___ Rapid Response ___ Code Blue ___ Other (describe below) Pastoral Care Referral From _x__ Patient _x__ Family ___ Nurse ___ Physician ___ Conduit Helper ___ Cement Storage Worker ___ Other (describe below) Sacrament/Intervention _x__ Active listening ___ Anointing ___ Orthodoxy ___ Bereavement ___ Communion ___ Radhika exploration ___ ___ Life review _x__ Prayer ___ Reconciliation ___ Sacrament of Sick _x__ Supportive presence ___ Wedding ___ Other (describe below) Pastoral Comments patient was seen previously in PCU; daughter is with pt in the room; pt will be going to have a pacemaker implanted soon; pt speaks of having this procedure and having some apprehension; pt appears weak but clear minded and answers questions; pt asks for a prayer for self and procedure; daughter expresses appreciation for the presence and prayers provided
--- NOTE | 2024-04-20 13:21 | CL.IE_ITS ---
Patient: JASON STANLEY Study Date: 04/20/2024 Performing: Carloz Sinclair MD : 1935 Age: 89 Gender: male PROCEDURES PERFORMED [id number]-([id number])INITIAL PACER INSERT+VENTRICULAR LEAD INDICATIONS SYMPTOMATIC BRADYCARDIA PROCEDURE DETAILS The patient was brought to the Catheterization Lab in the postabsorptive nonsedated state. Informed consent was obtained prior to the procedure. Local anesthetic was given subcutaneously to the left subclavian region with Lidocaine 2%. Access was achieved and a guidewire was advanced into the left subclavian vein. Incision was made to the left subclavicular area. A peel-away sheath was inserted into the left subclavian vein. PPM ventricular lead was inserted / positioned to right ventricular apex. The sheath was then removed. The wire was then removed. PPM ventricular lead testing performed. PPM ventricular lead testing performed. The Ventricular PM lead sutured in place with 2-0 Silk. Device pocket was irrigated with antibiotic. PPM ventricular lead testing performed. PPM ventricular lead testing performed. PPM generator was attached to the lead(s) and inserted into the pocket. PPM generator was then interrogated by the net programmer. Subcutaneous closure was completed with 3-0 Vicryl. Skin closure was completed with 4-0 Vicryl. Steri-strips applied to left subclavicular incision. Instrument, sponge, and needle counts were noted to be normal. The patient tolerated the procedure well. Estimated Blood Loss: 15 ml's IMPLANTED / EX-PLANTED DEVICES IMPLANTED DEVICE(S): PPM Generator - Duty Manager: [employer], Model # ESSENTIO MRI SR , Serial # [id number] PPM Ventricular lead - Duty Manager: [employer], Model # INGEVITY + , Serial # [id number] DEVICE PARAMETERS VENTRICULAR LEAD PARAMETERS: R wave- 25.0 (mV) Current- 1.0 (mA) threshold- 0.6 (V) impedence- 628 (OHMS) DEVICE PARAMETERS: Mode- VVI Lower rate- 50 CONCLUSIONS / RECOMMENDATIONS Device Conclusions: Successful implantation of a single chamber pacemaker Device Recommendations: Follow up with Primary Care Physician PROCEDURE MEDICATIONS Fentanyl 50 mcg IV Versed 1 mg IV Versed 1 mg IV Oxygen: 4 L/min via nasal cannula Antibiotic given in appropriate timeframe. Ancef 2 Gm IV @ 04/20/2024 12:01:57 Signed By Carloz Sinclair MD On 04/20/2024 13:20:12 Carloz Sinclair MD
--- NOTE | 2024-04-20 16:38 | PN.GI_ITS ---
Subjective Subjective Patient underwent emergent endoscopy last night. He is not having any chest pain, shortness of breath, nausea, vomiting or diarrhea. He did have some melanotic stools overnight. His hemoglobin is improving. Objective Data Objective Data Vital Signs: Vital Signs Temp Pulse Resp BP Pulse Ox O2 Del Method O2 Flow Rate 98.1 F 58 L 18 119/68 97 Nasal Cannula 2 04/20/24 16:10 04/20/24 16:10 04/20/24 16:10 04/20/24 16:10 04/20/24 16:10 04/20/24 16:10 04/20/24 16:10 Oxygen Flow Rate (L/min) 2 Oxygen Delivery Method Nasal Cannula Weight: 194 lb 14.218 oz Body Mass Index (BMI) 25.8 Intake & Output: Intake and Output for Last 24 Hours 04/18/24 04/19/24 04/20/24 23:59 23:59 23:59 Intake Total 360 / 360 1691.95 / 1710.75 251.15 / 251.15 Output Total 350 / 750 2350 / 2350 700 / 700 Balance 10 / -390 -658.05 / -639.25 -448.85 / -448.85 Lab / Micro Data 04/20/24 03:02 04/20/24 03:02 Labs: Laboratory Results - last 24 hr 04/19/24 16:38: POC Glucose 150 H 04/19/24 20:30: Hgb 6.2 L, Hct 22.1 L, Blood Type A POSITIVE, Antibody Screen NEGATIVE, Crossmatch See Detail 04/19/24 20:30: Crossmatch See Detail 04/19/24 22:24: POC Glucose 239 H 04/20/24 00:18: Hgb 7.4 L, Hct 24.8 L, PT 16.7 H, INR 1.4, APTT 28.5, Fibrinogen 336, Lactic Acid 3.1 H*, Total Bilirubin 0.60, Direct Bilirubin 0.23, AST 23, ALT 19, Alkaline Phosphatase 33 L, Total Protein 5.8 L, Albumin 1.9 L, Globulin 3.9 04/20/24 03:02: WBC 12.3 H, RBC 2.63 L, Hgb 7.5 L, Hct 24.8 L, MCV 94.3 H, MCH 28.5, MCHC 30.2 L D, RDW Std Deviation 52.4 H, RDW Coeff of Rachelle 15.9 H, Plt Count 205, MPV 10.2, Sodium 142, Potassium 4.8, Chloride 108 H, Carbon Dioxide 26.0, Anion Gap 8, BUN 54 H, Creatinine 1.71 H, Estim Creat Clear Calc 32.14, E st GFR (MDRD) Af Amer 49 L, Est GFR (MDRD) Non-Af 40 L, BUN/Creatinine Ratio 31.6 H, Glucose 204 H, Calcium 8.4 L 04/20/24 03:10: Phosphorus 2.6, Magnesium 2.1 04/20/24 04:39: Lactic Acid 1.6 04/20/24 07:26: POC Glucose 135 H 04/20/24 11:11: POC Glucose 136 H Micro: Microbiology 04/14/24 10:15 Mucosa - Throat Streptococcus pyogenes (PCR) - Final 04/14/24 10:15 Mucosa - Nose SARS-CoV-2, Influenza & RSV (PCR) - Final 04/14/24 10:12 Urine, Clean Catch Legionella Antigen - Final 04/14/24 10:12 Urine, Clean Catch Streptococcus pneumoniae Antigen (M - Final Physical Exam Const alert and no apparent distress General Appearance: cooperative HEENT normocephalic and head/scalp atraumatic Eyes PERRL, EOMs intact bilaterally and conjunctivae normal Neck supple General: trachea midline Chest inspection of chest normal Resp normal respiratory effort Auscultation: diminished lung sounds; Negative for rales, rhonchi or wheezes Cardio Rate: bradycardia Rhythm: abnormal rhythm GI normal to inspection, nondistended, normoactive bowel sounds Extremity no clubbing, cyanosis or edema Skin no rashes or lesions noted Neuro CN's II-XII intact bilaterally and no focal motor deficits Psych Mood & Affect: flat affect Assessment & Plan Assessment/Plan (1) Nonsustained ventricular tachycardia: (2) Non-ischemic cardiomyopathy: (3) Atrial fibrillation: QUALIFIERS: Atrial fibrillation type: permanent Qualified Code(s): I48.21 - Permanent atrial fibrillation (4) CHF exacerbation: QUALIFIERS: Heart failure type: unspecified Qualified Code(s): I 50.9 - Heart failure, unspecified PLAN: Plan Patient is an 89-year-old male who presented to [facility] ED on 04/13/2024 with worsening shortness of breath. He was diagnosed with an acute exacerbation of HFrEF with mild hypoxia, and recently was admitted with a diagnosis of nonischemic cardiomyopathy. His EF 25%, stage II diastolic dysfunction, severe global hypokinesis, severely enlarged LA, moderate pulmonary hypertension. Per cardiology, he was scheduled to get a pacemaker placed tomorrow. Today he developed an acute recurrent upper GI bleed possibly exacerbated by Lovenox status post endoscopic treatment with hemostasis currently. I will give him 2 units of packed red blood cells with Lasix in between. Chronic iron deficiency anemia in the setting of acute blood loss anemia. ? Baseline hemoglobin around 7.5-8.5. Hemoglobin stable at baseline. Repeat iron studies on 04/14 showed continued significant iron deficiency. He was given 2 doses of IV iron 200 mg on 04/16 and 04/17. He had recurrent GI bleeding. He was treated endoscopically. Hemoglobin is improved up to 7.5. Continue to monitor hemoglobin. Charges/Coding Visit Charges Inpatient E&M: 33957 Subs Hosp L3
[2024-04-20 17:14] LABS: Bedside Glucose 142 mg/dL (74-106)
[2024-04-20] MEDS: Insulin Glargine-YFGN 100 UNIT/ML Pen 6 UNIT SC (23:15)
[2024-04-20] MEDS: Tamsulosin HCl 0.4 MG Capsule 0.8 MG PO (23:15)
[2024-04-20] MEDS: Pravastatin 40 MG Tablet PO (23:16)
[2024-04-20] MEDS: Gabapentin 400 MG Capsule PO (23:16)
[2024-04-20] MEDS: Senna/Docusate Sodium 1 Tablet 2 TABLET PO (23:16)
[2024-04-20] MEDS: Magnesium Chloride 64 MG Delay Rel.Tablet PO (23:16)
[2024-04-20] MEDS: guaiFENesin/D-Methorphan TAB.SR.12H 2 TABLET PO (23:16)
[2024-04-20] MEDS: Latanoprost 0.005% 1 Bottle 1 DRP OPHTHALMIC (23:17)
[2024-04-21] VITALS (9 sets, daily range): BP systolic 128–143; BP diastolic 58–75; PULSE 51–63; RESP 16–20; TEMP 36.4–36.8; O2SAT 94–100; BMI 25.8
[2024-04-21 00:29] LABS: Bedside Glucose 143 mg/dL (74-106)
[2024-04-21] MEDS: Pantoprazole Sodium 80 MG in 0.9% Normal Saline (100mL Bag) 80 ML 10 MG CONT INF ×3 (02:36→23:24)
--- NOTE | 2024-04-21 05:55 | RAD_ITS ---
We are attempting to reach an attending provider to discuss findings. An addendum with communication details will be sent when the communication is complete. EXAM: XR CHEST, 3 VIEWS CLINICAL INDICATION: Post permanant ICD/Pacemaker -- inspiration/expiration. Arms Down. Wet read to MD TECHNIQUE: Frontal, lateral and one additional view of the chest. COMPARISON: 04/06/2024. FINDINGS: LUNGS AND PLEURAL SPACES: Patchy opacity left lung base may be due to atelectasis or consolidation. No pneumothorax. No effusion. HEART: Stable cardiomegaly. MEDIASTINUM: Central airways and mediastinal contour are unremarkable. BONES/JOINTS: Unremarkable. No acute fracture. SOFT TISSUES: Unremarkable. TUBES, LINES AND DEVICES: Single lead pacemaker with the tip overlying the right ventricular apex. RAD/Chest 3 View IMPRESSION: 1. Patchy opacity left lung base may be due to atelectasis or consolidation. 2. Single lead pacemaker with the tip overlying the right ventricular apex. No pneumothorax. 3. Stable cardiomegaly. Electronically Signed: Goyo Norris MD at 5:34 EDT ,
[2024-04-21 06:53] LABS: Absolute Neutrophil Count 6.6 X10^3/uL (2.0-7.7); Basophil# 0.06 X10^3/uL; Basophil% 0.7 % (0-1); Eosinophil# 0.08 X10^3/uL; Eosinophils% 0.9 % (0-5); Hematocrit 21.1 % (40-54); Hemoglobin 6.2 g/dL (13.0-16.5); Lymphocyte % 10.6 % (19-41); Mean Corp Hgb Conc 29.4 g/dL (32-36); Mean Corpuscular Hgb 28.4 pg (27.0-32.0); Mean Corpuscular Volume 96.8 fL (80-94); Mean Platelet Vol. 10.1 fl (6.2-12.0); Monocyte# 0.74 X10^3/uL; Monocyte% 8.7 % (0-10); NRBC Flagged by Analyzer 0 % (0-5); Neutrophil # 6.62 X10^3/uL (2.7-7.7); Neutrophil % 78.4 % (47-70); Platelet Count 149 K/mm3 (150-450); RBC Distribution Width CV 17.7 % (11.6-14.6); RBC Distribution Width SD 57.3 fl (35.1-43.9); Red Blood Count 2.18 M/mm3 (4.6-6.2); White Blood Count 8.5 K/mm3 (4.4-11.0)
[2024-04-21 07:18] LABS: Bedside Glucose 129 mg/dL (74-106)
[2024-04-21 07:32] LABS: Anion Gap 3 (5-15); BUN 64 mg/dL (7-18); BUN/Creat Ratio 44.4 RATIO (10-20); Calcium,Total 8.6 mg/dL (8.5-10.1); Chloride 117 mmol/L (98-107); Creatinine, Serum 1.44 mg/dL (0.70-1.30); EST Glomerular Filtration Rate 49 mL/min (>60); Est Glom Filt Rate - Afr Amer 59 mL/min (>60); Estimated Creatinine Clearance 38.17 ml/min; Glucose 140 mg/dL (74-106); Magnesium 2.2 mg/dL (1.6-2.6); Phosphorus 1.9 mg/dL (2.5-4.9); Potassium 4.1 mmol/L (3.5-5.1); Sodium Level 146 mmol/L (136-145)
--- NOTE | 2024-04-21 08:56 | PCM.PN.CARD ---
Subjective Subjective Patient seen and evaluated. Status post permanent pacemaker implantation. Patient tolerated the procedure well. Objective Data Vital Signs: Vital Signs Temp Pulse Resp BP Pulse Ox O2 Del Method O2 Flow Rate 98.0 F 62 18 138/68 H 96 Nasal Cannula 2 04/21/24 03:59 04/21/24 03:59 04/21/24 03:59 04/21/24 03:59 04/21/24 07:41 04/21/24 08:32 04/21/24 08:32 Oxygen Flow Rate (L/min) 2 Oxygen Delivery Method Nasal Cannula Weight: 195 lb 1.745 oz Body Mass Index (BMI) 25.8 Intake & Output: Intake and Output for Last 24 Hours 04/19/24 04/20/24 04/21/24 23:59 23:59 23:59 Intake Total 1691.95 / 1710.75 598.15 / 598.15 250 / 250 Output Total 2350 / 2350 1900 / 1900 650 / 650 Balance -658.05 / -639.25 -1301.85 / -1301.85 -400 / -400 Lab / Micro Data 04/21/24 06:36 04/21/24 06:36 Labs: Laboratory Results - last 24 hr 04/20/24 11:11: POC Glucose 136 H 04/20/24 16:53: POC Glucose 142 H 04/20/24 23:10: POC Glucose 143 H 04/21/24 06:36: WBC 8.5, RBC 2.18 L, Hgb 6.2 L, Hct 21.1 L, MCV 96.8 H, MCH 28.4, MCHC 29.4 L, RDW Std Deviation 57.3 H, RDW Coeff of Rachelle 17.7 H, Plt Count 149 L, MPV 10.1, Immature Gran % (Auto) 0.700, Neut % (Auto) 78.4 H, Lymph % (Auto) 10.6 L, [place] % (Auto) 8.7, Eos % (Auto) 0.9, Baso % (Auto) 0.7, Absolute Neuts (auto) 6.6, Absolute Lymphs (auto) 0.90, Nucleated RBC % 0, Sodium 146 H, Potassium 4.1, Chloride 117 H, Carbon Dioxide 26.0, Anion Gap 3 L, BUN 64 H, Creatinine 1.44 H, Estim Creat Clear Calc 38.17, Est GFR (MDRD) Af Amer 59 L, Est GFR (MDRD) Non-Af 49 L, BUN/Creatinine Ratio 44.4 H, Glucose 140 H, Calcium 8.6, Phosphorus 1.9 L, Magnesium 2.2 04/21/24 06:58: POC Glucose 129 H Cardiology Labs/Tests 04/21/24 06:36: WBC 8.5, RBC 2.18 L, Hgb 6.2 L, Hct 21.1 L, MCV 96.8 H, MCH 28.4, MCHC 29.4 L, Plt Count 149 L, MPV 10.1, Immature Gran % (Auto) 0.700, Neut % (Auto) 78.4 H, Lymph % (Auto) 10.6 L, [place] % (Auto) 8.7, Eos % (Auto) 0.9, Baso % (Auto) 0.7, Absolute Neuts (auto) 6.6, Nucleated RBC % 0, Sodium 146 H, Potassium 4.1, Chloride 117 H, Carbon Dioxide 26.0, Anion Gap 3 L, BUN 64 H, Creatinine 1.44 H, Est GFR (MDRD) Af Amer 59 L, Est GFR (MDRD) Non-Af 49 L, BUN/Creatinine Ratio 44.4 H, Glucose 140 H, Calcium 8.6, Phosphorus 1.9 L, Magnesium 2.2 Rhythm: EKG: ECHO: Stress Test: Cardiac Cath: PCI: CT Surgery: Holter monitor: EPS: PPM: CXR: Chest CT Scan: Radiography Diagnostic Testing: Radiology Impression Chest X-Ray 04/21/24 05:55 IMPRESSION: 1. Patchy opacity left lung base may be due to atelectasis or consolidation. 2. Single lead pacemaker with the tip overlying the right ventricular apex. No pneumothorax. 3. Stable cardiomegaly. Electronically Signed: Goyo Norris MD at 5:34 EDT , ADDENDUM: 04/21/24 [id number] IMPRESSION: 1. Patchy opacity left lung base may be due to atelectasis or consolidation. 2. Single lead pacemaker with the tip overlying the right ventricular apex. No pneumothorax. 3. Stable cardiomegaly. N.B. : The above Results were Read Back by Goyo Norris MD to Caridad Torres RN, and understanding confirmed on 04/21/2024 05:47:12 (ET). Electronically Signed: Goyo Norris MD at 5:34 EDT , Physical Exam Const alert and no apparent distress General Appearance: cooperative HEENT normocephalic and head/scalp atraumatic Eyes PERRL, EOMs intact bilaterally and conjunctivae normal Neck supple General: trachea midline Chest inspection of chest normal Resp normal respiratory effort Auscultation: diminished lung sounds; Negative for rales, rhonchi or wheezes Cardio Rate: bradycardia Rhythm: abnormal rhythm GI normal to inspection, nondistended, normoactive bowel sounds Extremity no clubbing, cyanosis or edema Skin no rashes or lesions noted Neuro CN's II-XII intact bilaterally and no focal motor deficits Psych Mood & Affect: flat affect Assessment & Plan Assessment/Plan (1) Atrial fibrillation: QUALIFIERS: Atrial fibrillation type: permanent Qualified Code(s): I48.21 - Permanent atrial fibrillation PLAN: Patient had atrial fibrillation with a slow ventricular response rate. Patient underwent permanent pacemaker implantation. He had declined an ICD. Procedure went well. Chest x-ray demonstrates normal positioning and pacemaker check demonstrates adequate functioning. Will arrange for outpatient follow-up. Will sign off at this time.
[2024-04-21] MEDS: Folic Acid 1 MG Tablet PO (10:09)
[2024-04-21] MEDS: Potassium Chloride Oral Tablet 20 MEQ PO (10:09)
[2024-04-21] MEDS: Menthol/Lanolin/Calamine/Znox 113 GM Tube 1 APPLIC TOPICAL ×2 (10:10→20:40)
[2024-04-21] MEDS: guaiFENesin/D-Methorphan TAB.SR.12H 2 TABLET PO ×2 (10:10→20:39)
[2024-04-21] MEDS: Amiodarone 200 MG Tablet PO (10:10)
[2024-04-21] MEDS: Ferrous Sulfate 325 MG Tablet PO (10:11)
[2024-04-21] MEDS: LINAGLIPTIN 5 MG TABLET PO (10:11)
[2024-04-21] MEDS: Cyanocobalamin 500 MCG Tablet 1000 MCG PO (10:11)
[2024-04-21] MEDS: Magnesium Chloride 64 MG Delay Rel.Tablet PO ×2 (10:11→20:40)
[2024-04-21] MEDS: Cholecalciferol (VIT D3) 25 MCG TABLET (1,000 UNITS) PO (10:11)
[2024-04-21] MEDS: Senna/Docusate Sodium 1 Tablet 2 TABLET PO (10:11)
[2024-04-21] MEDS: Insulin Lispro 100 UNIT/ML INSULN.PEN SC (11:39)
[2024-04-21] MEDS: 0.9% Saline Lock 10 ML Syringe IV ×2 (11:39→20:46)
[2024-04-21 12:16] LABS: Bedside Glucose 199 mg/dL (74-106)
--- NOTE | 2024-04-21 12:27 | PN.HOSP_ITS ---
Reason for Visit Reason for Visit: Diagnoses Hyperlipidemia, unspecified (04/13/24) Essential (primary) hypertension (04/13/24) Nonrheumatic aortic (valve) stenosis (04/13/24) Other cardiomyopathies (04/13/24) Left bundle-branch block, unspecified (04/13/24) Other ventricular tachycardia (04/13/24) Permanent atrial fibrillation (04/13/24) Unspecified atrial fibrillation (04/13/24) Heart failure, unspecified (04/13/24) Thoracic aortic aneurysm, without rupture (04/13/24) Subjective Subjective Patient underwent pacemaker placement the day prior. Hemoglobin down to 6.2. An order has been given for patient to be transfused 1 unit PRBC Objective Data Objective Data Vital Signs: Vital Signs Temp Pulse Resp BP Pulse Ox O2 Del Method O2 Flow Rate 97.6 F L 63 18 132/62 H 99 Room Air 2 04/21/24 10:00 04/21/24 10:00 04/21/24 10:00 04/21/24 10:00 04/21/24 10:00 04/21/24 10:00 04/21/24 09:21 Oxygen Flow Rate (L/min) 2 Oxygen Delivery Method Room Air Weight: 88.5 kg Body Mass Index (BMI) 25.8 Intake & Output: Intake and Output for Last 24 Hours 04/19/24 04/20/24 04/21/24 23:59 23:59 23:59 Intake Total 1691.95 / 1710.75 598.15 / 598.15 610 / 610 Output Total 2350 / 2350 1900 / 1900 1450 / 1450 Balance -658.05 / -639.25 -1301.85 / -1301.85 -840 / -840 Lab / Micro Data 04/21/24 06:36 04/21/24 06:36 Labs: Laboratory Results - last 24 hr 04/19/24 20:30: Crossmatch See Detail 04/20/24 16:53: POC Glucose 142 H 04/20/24 23:10: POC Glucose 143 H 04/21/24 06:36: WBC 8.5, RBC 2.18 L, Hgb 6.2 L, Hct 21.1 L, MCV 96.8 H, MCH 28.4, MCHC 29.4 L, RDW Std Deviation 57.3 H, RDW Coeff of Rachelle 17.7 H, Plt Count 149 L, MPV 10.1, Immature Gran % (Auto) 0.700, Neut % (Auto) 78.4 H, Lymph % (Auto) 10.6 L, [place] % (Auto) 8.7, Eos % (Auto) 0.9, Baso % (Auto) 0.7, Absolute Neuts (auto) 6.6, Absolute Lymphs (auto) 0.90, Nucleated RBC % 0, Sodium 146 H, Potassium 4.1, Chloride 117 H, Carbon Dioxide 26.0, Anion Gap 3 L, BUN 64 H, C reatinine 1.44 H, Estim Creat Clear Calc 38.17, Est GFR (MDRD) Af Amer 59 L, Est GFR (MDRD) Non-Af 49 L, BUN/Creatinine Ratio 44.4 H, Glucose 140 H, Calcium 8.6, Phosphorus 1.9 L, Magnesium 2.2 04/21/24 06:58: POC Glucose 129 H 04/21/24 11:33: POC Glucose 199 H Micro: Microbiology 04/14/24 10:15 Mucosa - Throat Streptococcus pyogenes (PCR) - Final 04/14/24 10:15 Mucosa - Nose SARS-CoV-2, Influenza & RSV (PCR) - Final 04/14/24 10:12 Urine, Clean Catch Legionella Antigen - Final 04/14/24 10:12 Urine, Clean Catch Streptococcus pneumoniae Antigen (M - Final Radiography Diagnostic Testing: Radiology Impression Chest X-Ray 04/21/24 05:55 IMPRESSION: 1. Patchy opacity left lung base may be due to atelectasis or consolidation. 2. Single lead pacemaker with the tip overlying the right ventricular apex. No pneumothorax. 3. Stable cardiomegaly. Electronically Signed: Goyo Norris MD at 5:34 EDT , ADDENDUM: 04/21/24 [id number] IMPRESSION: 1. Patchy opacity left lung base may be due to atelectasis or consolidation. 2. Single lead pacemaker with the tip overlying the right ventricular apex. No pneumothorax. 3. Stable cardiomegaly. N.B. : The above Results were Read Back by Goyo Norris MD to Caridad Torres RN, and understanding confirmed on 04/21/2024 05:47:12 (ET). Electronically Signed: Goyo Norris MD at 5:34 EDT , Physical Exam Narrative GENERAL: cooperative HEENT: Atraumatic; normocephalic EYES; Anicteric, Normal Conjunctiva NECK; supple, normal thyroid, RESPIRATORY: Diminished to auscultation CARDIOVASCULAR: Irregular S1 S2, GI: soft, normoactive bowel sounds, : No Renal angle tenderness; EXTREMITIES: No edema, no clubbing, MUSCULOSKELETAL: Left upper extremity immobilized NEURO: Awake; no lateralizing signs. SKIN: No Rash PSYCH; Flat affect Assessment & Plan Assessment/Plan (1) Nonsustained ventricular tachycardia: (2) Non-ischemic cardiomyopathy: (3) Atrial fibrillation: QUALIFIERS: Atrial fibrillation type: permanent Qualified Code(s): I48.21 - Permanent atrial fibrillation (4) CHF exacerbation: QUALIFIERS: Heart failure type: unspecified Qualified Code(s): I 50.9 - Heart failure, unspecified PLAN: Plan Patient is an 89-year-old male who presented to [facility] ED on 04/13/2024 with worsening shortness of breath. Patient was diagnosed with acute congestive heart failure with reduced ejection fraction. Hospital stay complicated by development of upper GI bleed for which patient underwent emergency EGD 1. Acute exacerbation of HFrEF with mild hypoxia, recently diagnosed nonischemic cardiomyopathy - Most recent echo on 03/18 showed EF 25%, stage II diastolic dysfunction, severe global hypokinesis, severely enlarged LA, moderate pulmonary hypertension. Per cardiology, suspected that new nonischemic cardiomyopathy was secondary to paroxysmal A-fib with slow ventricular response. Exacerbation presumed secondary to diuretic nonadherence at home. Improved with IV Lasix 40 mg twice daily, transitioned to p.o. lasix 40 mg twice daily on 04/17. Mild worsening of creatinine on 04/18, decreased to p.o. lasix 40 mg daily. Continue to monitor BMP and urine output daily. 2. Permanent A-fib with slow ventricular response; Nonsustained V tach ? Rate has consistently been in the 40s to 50s since admission, stable. Not on any rate controlling agents. Not on anticoagulation due to fall risk. Has had multiple runs of nonsustained V. tach during this hospitalization. Electrolytes stable on multiple checks. Per cardiology, patient is high risk for runs of V. tach given nonischemic cardiomyopathy as noted above. Started on p.o. amiodarone 200 mg daily on 04/16. Patient remains hesitant on having AICD placed, will reconsider this in outpatient setting and notably this would need to be done outside of [place]. Plan is for patient to undergo pacemaker placement on 04/20/2024 ? 04/21/2024; patient underwent pacemaker placement the day prior 3. Acute upper GI bleed ? Patient underwent EGD by Dr. Pearce on 04/19/2024. About 500 mL of bright red blood was aspirated from his stomach. There is also a lot of coffee ground bloody material in his stomach. 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 This lesion was treated with 6 of epinephrine followed by cautery and Hemospray. 4. Hypovolemic shock ? Secondary to upper GI bleed patient was treated Levophed which has since been weaned off 5. Anemia ? Secondary to combination of anemia of chronic disorder as well as acute blood loss anemia.Patient was transfused with 2 unit PRBC on 04/19/2024 anemia monitoring H&H and transfuse if patient becomes symptomatic or hemoglobin falls below 7 ? 04/21/2024 patient hemoglobin did drop to 6.2 and order was given for patient to be transfused with additional unit PRBC 6. Essential hypertension ? Patient antihypertensives held following his episode of hypotension during his GI bleed 7. Dyslipidemia -Patient is on statin therapy, continued at home dose 8. Diabetes mellitus type II -patient's oral hypoglycemics held. Placed on long acting insulin, Accu-Cheks a.c. and at bedtime and covered with sliding scale insulin 9. BPH with lower urinary obstructive symptoms - Patient treated with tamsulosin 10. History of gout ? Patient is on probenecid 11. DVT prophylaxis ? Patient was on Lovenox discontinued following his GI bleed SCDs only for now 13. Physical deconditioning - Requested for PT OT eval and drug abuse social worker to assist with discharge planning Time spent in the patient's overall evaluation,decision-making process, review of diagnostic data, adjustment of management, discussion with other providers, nursing nursing and ancillary staff involved in patient's care documentation, 50 Minutes Charges/Coding Visit Charges Inpatient E&M: 47754 Subs Hosp L3
[2024-04-21 16:58] LABS: Bedside Glucose 139 mg/dL (74-106)
--- NOTE | 2024-04-21 17:56 | PN.GI_ITS ---
Subjective Subjective Patient is status post permanent pacemaker and doing well. He does not had any black stools today. His diet was introduced. His hemoglobin dropped back down today. Objective Data Objective Data Vital Signs: Vital Signs Temp Pulse Resp BP Pulse Ox O2 Del Method O2 Flow Rate 98.2 F 51 L 16 135/75 H 95 Room Air 2 04/21/24 16:30 04/21/24 16:30 04/21/24 16:30 04/21/24 16:30 04/21/24 16:30 04/21/24 16:30 04/21/24 13:16 Oxygen Flow Rate (L/min) 2 Oxygen Delivery Method Room Air Weight: 195 lb 1.745 oz Body Mass Index (BMI) 25.8 Intake & Output: Intake and Output for Last 24 Hours 04/19/24 04/20/24 04/21/24 23:59 23:59 23:59 Intake Total 1691.95 / 1710.75 598.15 / 598.15 711 / 711 Output Total 2350 / 2350 1900 / 1900 1450 / 1450 Balance -658.05 / -639.25 -1301.85 / -1301.85 -739 / -739 Lab / Micro Data 04/21/24 06:36 04/21/24 06:36 Labs: Laboratory Results - last 24 hr 04/19/24 20:30: Crossmatch See Detail 04/20/24 23:10: POC Glucose 143 H 04/21/24 06:36: WBC 8.5, RBC 2.18 L, Hgb 6.2 L, Hct 21.1 L, MCV 96.8 H, MCH 28.4, MCHC 29.4 L, RDW Std Deviation 57.3 H, RDW Coeff of Rachelle 17.7 H, Plt Count 149 L, MPV 10.1, Immature Gran % (Auto) 0.700, Neut % (Auto) 78.4 H, Lymph % (Auto) 10.6 L, [place] % (Auto) 8.7, Eos % (Auto) 0.9, Baso % (Auto) 0.7, Absolute Neuts (auto) 6.6, Absolute Lymphs (auto) 0.90, Nucleated RBC % 0, Sodium 146 H, Potassium 4.1, Chloride 117 H, Carbon Dioxide 26.0, Anion Gap 3 L, BUN 64 H, C reatinine 1.44 H, Estim Creat Clear Calc 38.17, Est GFR (MDRD) Af Amer 59 L, Est GFR (MDRD) Non-Af 49 L, BUN/Creatinine Ratio 44.4 H, Glucose 140 H, Calcium 8.6, Phosphorus 1.9 L, Magnesium 2.2 04/21/24 06:58: POC Glucose 129 H 04/21/24 11:33: POC Glucose 199 H 04/21/24 16:29: POC Glucose 139 H Micro: Microbiology 04/14/24 10:15 Mucosa - Throat Streptococcus pyogenes (PCR) - Final 04/14/24 10:15 Mucosa - Nose SARS-CoV-2, Influenza & RSV (PCR) - Final 04/14/24 10:12 Urine, Clean Catch Legionella Antigen - Final 04/14/24 10:12 Urine, Clean Catch Streptococcus pneumoniae Antigen (M - Final Radiography Diagnostic Testing: Radiology Impression Chest X-Ray 04/21/24 05:55 IMPRESSION: 1. Patchy opacity left lung base may be due to atelectasis or consolidation. 2. Single lead pacemaker with the tip overlying the right ventricular apex. No pneumothorax. 3. Stable cardiomegaly. Electronically Signed: Goyo Norris MD at 5:34 EDT , ADDENDUM: 04/21/24 0554 IMPRESSION: 1. Patchy opacity left lung base may be due to atelectasis or consolidation. 2. Single lead pacemaker with the tip overlying the right ventricular apex. No pneumothorax. 3. Stable cardiomegaly. N.B. : The above Results were Read Back by Goyo Norris MD to Caridad Torres RN, and understanding confirmed on 04/21/2024 05:47:12 (ET). Electronically Signed: Goyo Norris MD at 5:34 EDT , Physical Exam Narrative GENERAL: cooperative HEENT: Atraumatic; normocephalic EYES; Anicteric, Normal Conjunctiva NECK; supple, normal thyroid, RESPIRATORY: Diminished to auscultation CARDIOVASCULAR: Irregular S1 S2, GI: soft, normoactive bowel sounds, : No Renal angle tenderness; EXTREMITIES: No edema, no clubbing, MUSCULOSKELETAL: Left upper extremity immobilized NEURO: Awake; no lateralizing signs. SKIN: No Rash PSYCH; Flat affect Assessment & Plan Assessment/Plan (1) Nonsustained ventricular tachycardia: (2) Non-ischemic cardiomyopathy: (3) Atrial fibrillation: QUALIFIERS: Atrial fibrillation type: permanent Qualified Code(s): I48.21 - Permanent atrial fibrillation (4) CHF exacerbation: QUALIFIERS: Heart failure type: unspecified Qualified Code(s): I 50.9 - Heart failure, unspecified PLAN: Plan Patient is an 89-year-old male who presented to [facility] ED on 04/13/2024 with worsening shortness of breath. He was diagnosed with an acute exacerbation of HFrEF with mild hypoxia, and recently was admitted with a diagnosis of nonischemic cardiomyopathy. His EF 25%, stage II diastolic dysfunction, severe global hypokinesis, severely enlarged LA, moderate pulmonary hypertension. Per cardiology, he was scheduled to get a pacemaker placed tomorrow. Today he developed an acute recurrent upper GI bleed possibly exacerbated by Lovenox status post endoscopic treatment with hemostasis currently. I will give him 2 units of packed red blood cells with Lasix in between. Chronic iron deficiency anemia in the setting of acute blood loss anemia. ? Baseline hemoglobin around 7.5-8.5. Hemoglobin stable at baseline. Repeat iron studies on 04/14 showed continued significant iron deficiency. He was given 2 doses of IV iron 200 mg on 04/16 and 04/17. He had recurrent GI bleeding. He was treated endoscopically. Hemoglobin is improved up to 7.5. Continue to monitor hemoglobin. 04/21/2024-his hemoglobin is back down to 6.2 today. Awaiting for repeat. His BUN is still going up. So I am assuming that he is having recurrent bleeding in his stomach. Recommend to keep him n.p.o. past midnight for repeat upper endoscopy and if bleeding cannot be stopped endoscopically after a third time then he may need surgical procedure to the stop bleeding. Charges/Coding Visit Charges Inpatient E&M: 46892 Subs Hosp L3
[2024-04-21 17:58] LABS: Hematocrit 24.7 % (40-54); Hemoglobin 7.3 g/dL (13.0-16.5)
[2024-04-21] MEDS: Latanoprost 0.005% 1 Bottle 1 DRP OPHTHALMIC (20:38)
[2024-04-21] MEDS: Pravastatin 40 MG Tablet PO (20:40)
[2024-04-21] MEDS: Tamsulosin HCl 0.4 MG Capsule 0.8 MG PO (20:40)
[2024-04-21] MEDS: Ondansetron 4 MG/2 ML Vial IV (20:43)
[2024-04-21] MEDS: Gabapentin 400 MG Capsule PO (20:43)
[2024-04-21 21:34] LABS: Bedside Glucose 129 mg/dL (74-106)
[2024-04-22] VITALS (14 sets, daily range): BP systolic 104–146; BP diastolic 49–69; PULSE 51–61; RESP 12–20; TEMP 36.2–36.8; O2SAT 95–100; BMI 24.6
[2024-04-22 03:41] LABS: Absolute Lymphocyte Count 0.64 X10^3/uL (0.83-4.51); Absolute Neutrophil Count 6.6 X10^3/uL (2.0-7.7); Basophil# 0.03 X10^3/uL; Basophil% 0.4 % (0-1); Eosinophil# 0.07 X10^3/uL; Eosinophils% 0.9 % (0-5); Hematocrit 23.9 % (40-54); Lymphocyte # 0.64 X10^3/ul (0.83-4.51); Lymphocyte % 7.9 % (19-41); Mean Corp Hgb Conc 29.3 g/dL (32-36); Mean Corpuscular Hgb 28.3 pg (27.0-32.0); Mean Corpuscular Volume 96.8 fL (80-94); Mean Platelet Vol. 10.3 fl (6.2-12.0); Monocyte# 0.72 X10^3/uL; Monocyte% 8.9 % (0-10); NRBC Flagged by Analyzer 0.2 % (0-5); Neutrophil # 6.55 X10^3/uL (2.7-7.7); Neutrophil % 80.9 % (47-70); Platelet Count 131 K/mm3 (150-450); RBC Distribution Width CV 18.9 % (11.6-14.6); RBC Distribution Width SD 63.7 fl (35.1-43.9); Red Blood Count 2.47 M/mm3 (4.6-6.2); White Blood Count 8.1 K/mm3 (4.4-11.0)
[2024-04-22 04:03] LABS: International Normalized Ratio 1.2; Prothrombin Time (Protime)PT. 15.1 SECONDS (11.7-14.9)
[2024-04-22 04:04] LABS: Partial Thromboplast Time 27.2 Seconds (24.1-36.2)
[2024-04-22 06:47] LABS: Bedside Glucose 139 mg/dL (74-106)
[2024-04-22 08:22] LABS: Anion Gap 3 (5-15); BUN 48 mg/dL (7-18); BUN/Creat Ratio 33.1 RATIO (10-20); Calcium,Total 8.5 mg/dL (8.5-10.1); Chloride 116 mmol/L (98-107); Creatinine, Serum 1.45 mg/dL (0.70-1.30); EST Glomerular Filtration Rate 49 mL/min (>60); Est Glom Filt Rate - Afr Amer 59 mL/min (>60); Estimated Creatinine Clearance 37.91 ml/min; Glucose 140 mg/dL (74-106); Potassium 4.1 mmol/L (3.5-5.1); Sodium Level 147 mmol/L (136-145)
[2024-04-22] MEDS: Amiodarone 200 MG Tablet PO (09:01)
[2024-04-22] MEDS: Menthol/Lanolin/Calamine/Znox 113 GM Tube 1 APPLIC TOPICAL ×2 (09:01→20:28)
[2024-04-22] MEDS: 0.9% Normal Saline (1000mL) 1,000 ML 15 ML IV (10:07)
[2024-04-22] MEDS: Pantoprazole Sodium 80 MG in 0.9% Normal Saline (100mL Bag) 80 ML 10 MG CONT INF ×2 (10:07→20:07)
[2024-04-22 10:58] LABS: Hematocrit 25.5 % (40-54); Hemoglobin 7.5 g/dL (13.0-16.5)
[2024-04-22 11:02] LABS: Bedside Glucose 152 mg/dL (74-106)
[2024-04-22] MEDS: Lactated Ringers 1,000 ML 15 ML IV (11:20)
--- NOTE | 2024-04-22 11:59 | PN.HOSP_ITS ---
Reason for Visit Reason for Visit: Diagnoses Hyperlipidemia, unspecified (04/13/24) Essential (primary) hypertension (04/13/24) Nonrheumatic aortic (valve) stenosis (04/13/24) Other cardiomyopathies (04/13/24) Left bundle-branch block, unspecified (04/13/24) Other ventricular tachycardia (04/13/24) Permanent atrial fibrillation (04/13/24) Unspecified atrial fibrillation (04/13/24) Heart failure, unspecified (04/13/24) Thoracic aortic aneurysm, without rupture (04/13/24) Subjective Subjective Patient seen hemoglobin still remains low at 7.0. Plan is for patient to undergo repeat upper EGD. Did discuss with patient and the family regarding disposition possibly to long-term facility Objective Data Objective Data Vital Signs: Vital Signs Temp Pulse Resp BP Pulse Ox O2 Del Method O2 Flow Rate 97.8 F 61 16 128/60 H 97 Room Air 2 04/22/24 08:50 04/22/24 08:50 04/22/24 08:50 04/22/24 08:50 04/22/24 08:50 04/22/24 08:50 04/22/24 08:10 Oxygen Flow Rate (L/min) 2 Oxygen Delivery Method Room Air Weight: 84.4 kg Body Mass Index (BMI) 24.6 Intake & Output: Intake and Output for Last 24 Hours 04/20/24 04/21/24 04/22/24 23:59 23:59 23:59 Intake Total 598.15 / 598.15 1429.5 / 1429.5 100 / 100 Output Total 1900 / 1900 2350 / 2350 350 / 350 Balance -1301.85 / -1301.85 -920.5 / -920.5 -250 / -250 Lab / Micro Data 04/22/24 10:50 04/22/24 03:33 Labs: Laboratory Results - last 24 hr 04/16/24 13:09: Amiodarone < 200 L 04/19/24 20:30: Crossmatch See Detail 04/21/24 11:33: POC Glucose 199 H 04/21/24 16:29: POC Glucose 139 H 04/21/24 17:35: Hgb 7.3 L, Hct 24.7 L 04/21/24 20:44: POC Glucose 129 H 04/22/24 03:33: WBC 8.1, RBC 2.47 L, Hgb 7.0 L, Hct 23.9 L, MCV 96.8 H, MCH 28.3, MCHC 29.3 L, RDW Std Deviation 63.7 H, RDW Coeff of Rachelle 18.9 H, Plt Count 131 L, MPV 10.3, Immature Gran % (Auto) 1.000 H, Neut % (Auto) 80.9 H, Lymph % (Auto) 7.9 L, Parker % (Auto) 8.9, Eos % (Auto) 0.9, Baso % (Auto) 0.4, Absolute Neuts (auto) 6.6, Absolute Lymphs (auto) 0.64 L, Nucleated RBC % 0.2, PT 15.1 H, INR 1.2, APTT 27.2, Sodium 147 H, Potassium 4.1, Chloride 116 H, Carbon Dioxide 28.0, Anion Gap 3 L, BUN 48 H, Creatinine 1.45 H, Estim Creat Clear Calc 37.91, Est GFR (MDRD) Af Amer 59 L, Est GFR (MDRD) Non-Af 49 L, BUN/Creatinine Ratio 33.1 H, Glucose 140 H, Calcium 8.5 04/22/24 06:28: POC Glucose 139 H 04/22/24 10:44: POC Glucose 152 H 04/22/24 10:50: Hgb 7.5 L, Hct 25.5 L Micro: Microbiology 04/14/24 10:15 Mucosa - Throat Streptococcus pyogenes (PCR) - Final 04/14/24 10:15 Mucosa - Nose SARS-CoV-2, Influenza & RSV (PCR) - Final 04/14/24 10:12 Urine, Clean Catch Legionella Antigen - Final 04/14/24 10:12 Urine, Clean Catch Streptococcus pneumoniae Antigen (M - Final Physical Exam Narrative GENERAL: cooperative HEENT: Atraumatic; normocephalic EYES; Anicteric, Normal Conjunctiva NECK; supple, normal thyroid, RESPIRATORY: Diminished to auscultation CARDIOVASCULAR: Irregular S1 S2, GI: soft, normoactive bowel sounds, : No Renal angle tenderness; EXTREMITIES: No edema, no clubbing, MUSCULOSKELETAL: Left upper extremity immobilized NEURO: Awake; no lateralizing signs. SKIN: No Rash PSYCH; Flat affect Assessment & Plan Assessment/Plan (1) Nonsustained ventricular tachycardia: (2) Non-ischemic cardiomyopathy: (3) Atrial fibrillation: QUALIFIERS: Atrial fibrillation type: permanent Qualified Code(s): I48.21 - Permanent atrial fibrillation (4) CHF exacerbation: QUALIFIERS: Heart failure type: unspecified Qualified Code(s): I 50.9 - Heart failure, unspecified PLAN: Plan Patient is an 89-year-old male who presented to [facility] ED on 04/13/2024 with worsening shortness of breath. Patient was diagnosed with acute congestive heart failure with reduced ejection fraction. Hospital stay complicated by development of upper GI bleed for which patient underwent emergency EGD 1. Acute exacerbation of HFrEF with mild hypoxia, recently diagnosed nonischemic cardiomyopathy - Most recent echo on 03/18 showed EF 25%, stage II diastolic dysfunction, severe global hypokinesis, severely enlarged LA, moderate pulmonary hypertension. Per cardiology, suspected that new nonischemic cardiomyopathy was secondary to paroxysmal A-fib with slow ventricular response. Exacerbation presumed secondary to diuretic nonadherence at home. Improved with IV Lasix 40 mg twice daily, transitioned to p.o. lasix 40 mg twice daily on 04/17. Mild worsening of creatinine on 04/18, decreased to p.o. lasix 40 mg daily. Continue to monitor BMP and urine output daily. 2. Permanent A-fib with slow ventricular response; Nonsustained V tach ? Rate has consistently been in the 40s to 50s since admission, stable. Not on any rate controlling agents. Not on anticoagulation due to fall risk. Has had multiple runs of nonsustained V. tach during this hospitalization. Electrolytes stable on multiple checks. Per cardiology, patient is high risk for runs of V. tach given nonischemic cardiomyopathy as noted above. Started on p.o. amiodarone 200 mg daily on 04/16. Patient remains hesitant on having AICD placed, will reconsider this in outpatient setting and notably this would need to be done outside of [place]. Plan is for patient to undergo pacemaker placement on 04/20/2024 ? 04/21/2024; patient underwent pacemaker placement the day prior 3. Acute upper GI bleed ? Patient underwent EGD by Dr. Pearce on 04/19/2024. About 500 mL of bright red blood was aspirated from his stomach. There is also a lot of coffee ground bloody material in his stomach. 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 This lesion was treated with 6 of epinephrine followed by cautery and Hemospray. ? Patient hemoglobin down to 7 plan is for patient to be transfused with 1 unit PRBC. Patient also scheduled to undergo repeat EGD 4. Hypovolemic shock ? Secondary to upper GI bleed patient was treated Levophed which has since been weaned off 5. Anemia ? Secondary to combination of anemia of chronic disorder as well as acute blood loss anemia.Patient was transfused with 2 unit PRBC on 04/19/2024 anemia monitoring H&H and transfuse if patient becomes symptomatic or hemoglobin falls below 7 ? 04/21/2024 patient hemoglobin did drop to 6.2 and order was given for patient to be transfused with additional unit PRBC ? 04/22/2024; hemoglobin up to 7.0 after being transfused 1 unit PRBC additional PRBC unit transfused 6. Essential hypertension ? Patient antihypertensives held following his episode of hypotension during his GI bleed 7. Dyslipidemia -Patient is on statin therapy, continued at home dose 8. Diabetes mellitus type II -patient's oral hypoglycemics held. Placed on long acting insulin, Accu-Cheks a.c. and at bedtime and covered with sliding scale insulin 9. BPH with lower urinary obstructive symptoms - Patient treated with tamsulosin 10. History of gout ? Patient is on probenecid 11. DVT prophylaxis ? Patient was on Lovenox discontinued following his GI bleed SCDs only for now 13. Physical deconditioning - Requested for PT OT eval and [employer] social worker to assist with discharge planning ? 04/22/2024 disposition discussed with family patient will benefit from going to long-term facility Time spent in the patient's overall evaluation,decision-making process, review of diagnostic data, adjustment of management, discussion with other providers, nursing nursing and ancillary staff involved in patient's care documentation, 52 Minutes Charges/Coding Visit Charges Inpatient E&M: 65686 Subs Hosp L3
--- NOTE | 2024-04-22 13:03 | OP.CCLET_ITS ---
04/22/2024 Cory Mckeon Re : Upper GI endoscopy procedure for Joel Talbert Jordynr Mike This procedure was performed on Monday, April 22, 2024. My impressions and recommendations are as follows: Impressions : - Grade I esophageal varices. - Non-bleeding gastric ulcer with pigmented material. Treated with a heater probe. - Normal duodenal bulb. - No specimens collected. Recommendations : - [facility] patient to [facility] for [facility]. - Resume regular diet. - Continue present medications. - Repeat upper endoscopy in 2 months for surveillance. My findings are described in the full procedure note, which is enclosed. If I can be of further assistance, please feel free to contact me at . Sincerely, Thomas Pearce, 04/22/2024 1:02:50 PM This report has been signed electronically.
--- NOTE | 2024-04-22 13:03 | OP.EGD_ITS ---
Patient Name: Joel Talbert Procedure Date: 04/22/2024 12:36 PM Date of : 1935 Age: 89 Procedure: Upper GI endoscopy Indications: Iron deficiency anemia, Melena Providers: Thomas Pearce DO Medicines: Monitored Anesthesia Care Patient Profile: This is an 89 year old male. Refer to note in patient chart for documentation of history and physical. Patient has symptoms of acute epigastric abdominal pain. His most recent EGD for treatment of bleeding and EGD for ulcer treatment was within the past month. Complications: No immediate complications. Procedure: Pre-Anesthesia Assessment: - Prior to the procedure, a History and Physical was performed, and patient medications and allergies were reviewed. The patient is competent. The risks and benefits of the procedure and the sedation options and risks were discussed with the patient. All questions were answered and informed consent was obtained. Patient identification and proposed procedure were verified by the physician in the pre-procedure area. Mental Status Examination: alert and oriented. Airway Examination: normal oropharyngeal airway and neck mobility. Prophylactic Antibiotics: The patient does not require prophylactic antibiotics. Prior Anticoagulants: The patient has taken no anticoagulant or antiplatelet agents. After reviewing the risks and benefits, the patient was deemed in satisfactory condition to undergo the procedure. The anesthesia plan was to use minimal sedation / analgesia (anxiolysis). Immediately prior to administration of medications, the patient was re-assessed for adequacy to receive sedatives. The heart rate, respiratory rate, oxygen saturations, blood pressure, adequacy of pulmonary ventilation, and response to care were monitored throughout the procedure. The physical status of the patient was re-assessed after the procedure. After obtaining informed consent, the endoscope was passed under direct vision. Throughout the procedure, the patient's blood pressure, pulse, and oxygen saturations were monitored continuously. The Endoscope was introduced through the mouth, and advanced to the second part of duodenum. The upper GI endoscopy was accomplished without difficulty. The patient tolerated the procedure well. Scope In: 12:43:46 PM Scope Out: 12:52:33 PM Total Procedure Duration Time 0 hours 8 minutes 47 seconds Findings: Grade I varices were found in the upper third of the esophagus. They were 5 mm in largest diameter. One non-bleeding cratered gastric ulcer with pigmented material was found on the greater curvature of the stomach. The lesion was 10 mm in largest dimension. Coagulation for bleeding prevention using heater probe was successful. Estimated blood loss was minimal. The duodenal bulb was normal. Impression: - Grade I esophageal varices. - Non-bleeding gastric ulcer with pigmented material. Treated with a heater probe. - Normal duodenal bulb. - No specimens collected. Recommendation: - Return patient to [facility] for [facility] care. - Resume regular diet. - Continue present medications. - Repeat upper endoscopy in 2 months for surveillance. Procedure Code(s): --- Professional --- 17026, Esophagogastroduodenoscopy, flexible, transoral; with control of bleeding, any method CPT copyright 2021 [employer]. All rights reserved. The codes documented in this report are preliminary and upon mechanical facilities technician review may be revised to meet current compliance requirements. Thomas Pearce DO 04/22/2024 1:02:50 PM This report has been signed electronically. Number of Addenda: 0 Note Initiated On: 04/22/2024 12:36 PM
--- NOTE | 2024-04-22 13:09 | EKG12_ITS ---
Test Reason : arryth Blood Pressure : / mmHG Vent. Rate : 061 BPM Atrial Rate : 000 BPM P-R Int : 000 ms QRS Dur : 176 ms QT Int : 490 ms P-R-T Axes : 000 -09 160 degrees QTc Int : 493 ms Atrial fibrillation Left bundle branch block Abnormal ECG When compared with ECG of 16-APR-2024 05:15, No significant change was found Confirmed by NATIVIDAD STEWART, DARIA ([id number]), book editor MALACHI DUNN ([id number]) on 04/27/2024 8:31:49 AM Referred By: Elizabeth Confirmed By:DARIA HENSON MD
--- NOTE | 2024-04-22 14:13 | CASEMGMT ---
AYO was informed patient and family are interested in patient going somewhere for rehab. AYO met with patient and his daughter Kaylee. AYO introduced self and role at [facility]. Patient just came back from a procedure so he was resting. Kaylee confirmed they would like patient to get rehab somewhere. Kaylee asked if patient could go to TCU. AYO let Kaylee know SW will make a referral. SW also provided patient and Kaylee with a list of [facility] facility providers including quality and resource use data and consistent with patient?s preferred geographic region, medical needs, and insurance network were provided from the [facility].?SW will make a referral and let them know when SW hears back. SW made a referral to [facility] in TCU. Keyana CADE
[2024-04-22] MEDS: guaiFENesin/D-Methorphan TAB.SR.12H 2 TABLET PO ×2 (14:31→20:27)
[2024-04-22] MEDS: Ferrous Sulfate 325 MG Tablet PO (14:31)
[2024-04-22] MEDS: Potassium Chloride Oral Tablet 20 MEQ PO (14:31)
[2024-04-22] MEDS: Cholecalciferol (VIT D3) 25 MCG TABLET (1,000 UNITS) PO (14:31)
[2024-04-22] MEDS: Senna/Docusate Sodium 1 Tablet 2 TABLET PO ×2 (14:31→20:27)
[2024-04-22] MEDS: Magnesium Chloride 64 MG Delay Rel.Tablet PO ×2 (14:31→20:27)
[2024-04-22] MEDS: LINAGLIPTIN 5 MG TABLET PO (14:31)
[2024-04-22] MEDS: Cyanocobalamin 500 MCG Tablet 1000 MCG PO (14:32)
[2024-04-22] MEDS: Folic Acid 1 MG Tablet PO (14:32)
[2024-04-22 17:26] LABS: Bedside Glucose 140 mg/dL (74-106)
[2024-04-22] MEDS: Latanoprost 0.005% 1 Bottle 1 DRP OPHTHALMIC (20:26)
[2024-04-22] MEDS: Gabapentin 400 MG Capsule PO (20:26)
[2024-04-22] MEDS: Tamsulosin HCl 0.4 MG Capsule 0.8 MG PO (20:27)
[2024-04-22] MEDS: Insulin Lispro 100 UNIT/ML INSULN.PEN SC (20:27)
[2024-04-22] MEDS: Pravastatin 40 MG Tablet PO (20:27)
[2024-04-22] MEDS: Insulin Glargine-YFGN 100 UNIT/ML Pen 6 UNIT SC (20:28)
[2024-04-22 21:10] LABS: Bedside Glucose 183 mg/dL (74-106)
[2024-04-23 02:25] VITALS: BP 124/60; PULSE 52; RESP 18; TEMP 36.4; O2SAT 98
[2024-04-23 04:10] VITALS: BMI 26.9
[2024-04-23] MEDS: Pantoprazole Sodium 80 MG in 0.9% Normal Saline (100mL Bag) 80 ML 10 MG CONT INF (06:07)
[2024-04-23 06:24] LABS: Absolute Lymphocyte Count 0.68 X10^3/uL (0.83-4.51); Absolute Neutrophil Count 7.9 X10^3/uL (2.0-7.7); Basophil# 0.02 X10^3/uL; Basophil% 0.2 % (0-1); Eosinophil# 0.03 X10^3/uL; Eosinophils% 0.3 % (0-5); Hematocrit 26.8 % (40-54); Lymphocyte # 0.68 X10^3/ul (0.83-4.51); Mean Corp Hgb Conc 29.9 g/dL (32-36); Mean Corpuscular Hgb 29.6 pg (27.0-32.0); Mean Corpuscular Volume 99.3 fL (80-94); Mean Platelet Vol. 10.6 fl (6.2-12.0); Monocyte# 0.94 X10^3/uL; Monocyte% 9.7 % (0-10); NRBC Flagged by Analyzer 0.2 % (0-5); Neutrophil # 7.93 X10^3/uL (2.7-7.7); Platelet Count 132 K/mm3 (150-450); RBC Distribution Width CV 18.7 % (11.6-14.6); RBC Distribution Width SD 62.4 fl (35.1-43.9); White Blood Count 9.7 K/mm3 (4.4-11.0)
[2024-04-23 06:34] LABS: Bedside Glucose 115 mg/dL (74-106)
[2024-04-23 06:55] LABS: Anion Gap 2 (5-15); BUN 37 mg/dL (7-18); BUN/Creat Ratio 28.2 RATIO (10-20); Calcium,Total 8.8 mg/dL (8.5-10.1); Chloride 118 mmol/L (98-107); Creatinine, Serum 1.31 mg/dL (0.70-1.30); EST Glomerular Filtration Rate 55 mL/min (>60); Est Glom Filt Rate - Afr Amer 66 mL/min (>60); Estimated Creatinine Clearance 41.96 ml/min; Glucose 126 mg/dL (74-106); Potassium 4.5 mmol/L (3.5-5.1); Sodium Level 146 mmol/L (136-145)
[2024-04-23 07:32] VITALS: O2SAT 95
[2024-04-23 08:00] VITALS: PULSE 57; RESP 16; O2SAT 100; O2SAT 94; O2SAT 95
[2024-04-23] MEDS: Potassium Chloride Oral Tablet 20 MEQ PO (08:17)
[2024-04-23] MEDS: Amiodarone 200 MG Tablet PO (08:23)
[2024-04-23] MEDS: Magnesium Chloride 64 MG Delay Rel.Tablet PO (08:23)
[2024-04-23] MEDS: LINAGLIPTIN 5 MG TABLET PO (08:23)
[2024-04-23] MEDS: Cyanocobalamin 500 MCG Tablet 1000 MCG PO (08:23)
[2024-04-23] MEDS: Cholecalciferol (VIT D3) 25 MCG TABLET (1,000 UNITS) PO (08:23)
[2024-04-23] MEDS: Senna/Docusate Sodium 1 Tablet 2 TABLET PO (08:23)
[2024-04-23] MEDS: Folic Acid 1 MG Tablet PO (08:24)
[2024-04-23] MEDS: Menthol/Lanolin/Calamine/Znox 113 GM Tube 1 APPLIC TOPICAL (08:24)
[2024-04-23] MEDS: guaiFENesin/D-Methorphan TAB.SR.12H 2 TABLET PO (08:24)
[2024-04-23] MEDS: Ferrous Sulfate 325 MG Tablet PO (08:24)
[2024-04-23 08:25] VITALS: BP 137/60; PULSE 57; RESP 16; TEMP 36.3; O2SAT 100
--- NOTE | 2024-04-23 09:23 | PCM.PN.HOSP ---
Reason for Visit Reason for Visit: Diagnoses Hyperlipidemia, unspecified (04/13/24) Essential (primary) hypertension (04/13/24) Nonrheumatic aortic (valve) stenosis (04/13/24) Other cardiomyopathies (04/13/24) Left bundle-branch block, unspecified (04/13/24) Other ventricular tachycardia (04/13/24) Permanent atrial fibrillation (04/13/24) Unspecified atrial fibrillation (04/13/24) Heart failure, unspecified (04/13/24) Thoracic aortic aneurysm, without rupture (04/13/24) Subjective Subjective Patient seen no change in clinical condition hemoglobin up to 8.0 after being transfused with additional PRBC unit the day prior. Objective Data Objective Data Vital Signs: Vital Signs Temp Pulse Resp BP Pulse Ox O2 Del Method O2 Flow Rate 97.3 F L 57 L 16 137/60 H 100 Nasal Cannula 2 04/23/24 08:25 04/23/24 08:25 04/23/24 08:25 04/23/24 08:25 04/23/24 08:25 04/23/24 08:25 04/23/24 08:00 Oxygen Flow Rate (L/min) 2 Oxygen Delivery Method Nasal Cannula Weight: 92.1 kg Body Mass Index (BMI) 26.9 Intake & Output: Intake and Output for Last 24 Hours 04/21/24 04/22/24 04/23/24 23:59 23:59 23:59 Intake Total 1429.5 / 1429.5 1230.00 / 1230.00 100 / 100 Output Total 2350 / 2350 900 / 900 400 / 400 Balance -920.5 / -920.5 330.00 / 330.00 -300 / -300 Lab / Micro Data 04/23/24 05:57 04/23/24 05:57 Labs: Laboratory Results - last 24 hr 04/16/24 13:09: Amiodarone < 200 L, Noramiodarone 04/19/24 20:30: Crossmatch See Detail 04/22/24 10:44: POC Glucose 152 H 04/22/24 10:50: Hgb 7.5 L, Hct 25.5 L 04/22/24 16:54: POC Glucose 140 H 04/22/24 20:22: POC Glucose 183 H 04/23/24 05:57: WBC 9.7, RBC 2.70 L, Hgb 8.0 L, Hct 26.8 L, MCV 99.3 H, MCH 29.6, MCHC 29.9 L, RDW Std Deviation 62.4 H, RDW Coeff of Rachelle 18.7 H, Plt Count 132 L, MPV 10.6, Immature Gran % (Auto) 0.800, Neut % (Auto) 82.0 H, Lymph % (Auto) 7.0 L, [place] % (Auto) 9.7, Eos % (Auto) 0.3, Baso % (Auto) 0.2, Absolute Neuts (auto) 7.9 H, Absolute Lymphs (auto) 0.68 L, Nucleated RBC % 0.2, Sodium 146 H, Potassium 4.5, Chloride 118 H, Carbon Dioxide 26.0, Anion Gap 2 L, BUN 37 H, Creatinine 1.31 H, Estim Creat Clear Calc 41.96, Est GFR (MDRD) Af Amer 66, Est GFR (MDRD) Non-Af 55 L, BUN/Creatinine Ratio 28.2 H, Glucose 126 H, Calcium 8.8 04/23/24 06:07: POC Glucose 115 H Micro: Microbiology 04/14/24 10:15 Mucosa - Throat Streptococcus pyogenes (PCR) - Final 04/14/24 10:15 Mucosa - Nose SARS-CoV-2, Influenza & RSV (PCR) - Final 04/14/24 10:12 Urine, Clean Catch Legionella Antigen - Final 04/14/24 10:12 Urine, Clean Catch Streptococcus pneumoniae Antigen (M - Final Physical Exam Narrative GENERAL: cooperative HEENT: Atraumatic; normocephalic EYES; Anicteric, Normal Conjunctiva NECK; supple, normal thyroid, RESPIRATORY: Diminished to auscultation CARDIOVASCULAR: Irregular S1 S2, GI: soft, normoactive bowel sounds, : No Renal angle tenderness; EXTREMITIES: No edema, no clubbing, MUSCULOSKELETAL: Left upper extremity immobilized NEURO: Awake; no lateralizing signs. SKIN: No Rash PSYCH; Flat affect Assessment & Plan Assessment/Plan (1) Nonsustained ventricular tachycardia: (2) Non-ischemic cardiomyopathy: (3) Atrial fibrillation: QUALIFIERS: Atrial fibrillation type: permanent Qualified Code(s): I48.21 - Permanent atrial fibrillation (4) CHF exacerbation: QUALIFIERS: Heart failure type: unspecified Qualified Code(s): I50.9 - Heart failure, unspecified PLAN: Plan Patient is an 89-year-old male who presented to [facility] ED on 04/13/2024 with worsening shortness of breath. Patient was diagnosed with acute congestive heart failure with reduced ejection fraction. Hospital stay complicated by development of upper GI bleed for which patient underwent emergency EGD 1. Acute exacerbation of HFrEF with mild hypoxia, recently diagnosed nonischemic cardiomyopathy - Most recent echo on 03/18 showed EF 25%, stage II diastolic dysfunction, severe global hypokinesis, severely enlarged LA, moderate pulmonary hypertension. Per cardiology, suspected that new nonischemic cardiomyopathy was secondary to paroxysmal A-fib with slow ventricular response. Exacerbation presumed secondary to diuretic nonadherence at home. Improved with IV Lasix 40 mg twice daily, transitioned to p.o. lasix 40 mg twice daily on 04/17. Mild worsening of creatinine on 04/18, decreased to p.o. lasix 40 mg daily. Continue to monitor BMP and urine output daily. ? 04/23/2024 patient remains euvolemic at this point 2. Permanent A-fib with slow ventricular response; Nonsustained V tach ? Rate has consistently been in the 40s to 50s since admission, stable. Not on any rate controlling agents. Not on anticoagulation due to fall risk. Has had multiple runs of nonsustained V. tach during this hospitalization. Electrolytes stable on multiple checks. Per cardiology, patient is high risk for runs of V. tach given nonischemic cardiomyopathy as noted above. Started on p.o. amiodarone 200 mg daily on 04/16. Patient remains hesitant on having AICD placed, will reconsider this in outpatient setting and notably this would need to be done outside of [place]. Plan is for patient to undergo pacemaker placement on 04/20/2024 ? 04/21/2024; patient underwent pacemaker placement the day prior 3. Acute upper GI bleed ? Patient underwent EGD by Dr. Pearce on 04/19/2024. About 500 mL of bright red blood was aspirated from his stomach. There is also a lot of coffee ground bloody material in his stomach. 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 This lesion was treated with 6 of epinephrine followed by cautery and Hemospray. ? Patient hemoglobin down to 7 plan is for patient to be transfused with 1 unit PRBC. Patient also scheduled to undergo repeat EGD ? 04/23/2024 repeat EGD did show - Grade I esophageal varices. Non-bleeding gastric ulcer with pigmented material. Treated with a heater probe. Normal duodenal bulb. - No specimens collected.. Patient was also transfused with additional unit PRBC hemoglobin up to 8.0 this 4. Hypovolemic shock ? Secondary to upper GI bleed patient was treated Levophed which has since been weaned off -04/23/2024; resolved 5. Anemia ? Secondary to combination of anemia of chronic disorder as well as acute blood loss anemia.Patient was transfused with 2 unit PRBC on 04/19/2024 anemia monitoring H&H and transfuse if patient becomes symptomatic or hemoglobin falls below 7 ? 04/21/2024 patient hemoglobin did drop to 6.2 and order was given for patient to be transfused with additional unit PRBC ? 04/22/2024; hemoglobin up to 7.0 after being transfused 1 unit PRBC additional PRBC unit transfused 6. Essential hypertension ? Patient antihypertensives held following his episode of hypotension during his GI bleed 7. Dyslipidemia -Patient is on statin therapy, continued at home dose 8. Diabetes mellitus type II -patient's oral hypoglycemics held. Placed on long acting insulin, Accu-Cheks a.c. and at bedtime and covered with sliding scale insulin 9. BPH with lower urinary obstructive symptoms - Patient treated with tamsulosin 10. History of gout ? Patient is on probenecid 11. DVT prophylaxis ? Patient was on Lovenox discontinued following his GI bleed SCDs only for now 13. Physical deconditioning - Requested for PT OT eval and social services aide to assist with discharge planning ? 04/22/2024 disposition discussed with family patient will benefit from going to [facility] facility Time spent in the patient's overall evaluation,decision-making process, review of diagnostic data, adjustment of management, discussion with other providers, nursing nursing and ancillary staff involved in patient's care documentation,40 Minutes Charges/Coding Visit Charges Inpatient E&M: 20406 Subs Hosp L2
[2024-04-23] MEDS: Insulin Lispro 100 UNIT/ML INSULN.PEN SC (11:29)
[2024-04-23 11:44] LABS: Bedside Glucose 180 mg/dL (74-106)
[2024-04-23] MEDS: Acetaminophen 325 MG Tablet 650 MG PO (11:56)
--- NOTE | 2024-04-23 13:15 | CASEMGMT ---
Patient was approved to go to TCU. SW notified physician. Plan: d/c to [facility] TCU under skilled level of care. Keayna CADE
--- NOTE | 2024-04-23 13:20 | DS.PCM_ITS ---
Providers Date of Admission: 04/13/24 Date of Discharge: 04/23/24 Primary Care Physician: Dr. Cory Mckeon MD Consultations 04/14/24 15:18 Consult: Gastroenterology Routine Consulting Provider: [facility] Reason for Consult: esophageal dysphagia EMERGENT Consult: No Notified: Yes Date Notified: 04/14/24 Time Notified: 14:18 Method of Notification: Verbal 04/15/24 08:49 Consult: Cardiology Routine Consulting Provider: Rahat Weiner Reason for Consult: CHF exacerbation EMERGENT Consult: No Notified: Yes Date Notified: 04/15/24 Time Notified: 09:35 Method of Notification: Verbal 04/19/24 20:19 Consult: Anatomy And Physiology Instructor / Pulmonary Medicine Routine Consulting Provider: Intensivists/Pulmonary Med Reason for Consult: GI bleed, CHF exac, ABLA EMERGENT Consult: No Notified: Yes Date Notified: 04/19/24 Time Notified: 20:08 Method of Notification: Answering Service Reason For Visit: CHF EXACERBATION Diagnosis Discharge Diagnosis (1) Nonsustained ventricular tachycardia: Status: Acute Code(s): I47.29 - Other ventricular tachycardia (2) Non-ischemic cardiomyopathy: Status: Acute Code(s): I42.8 - Other cardiomyopathies (3) Atrial fibrillation: Status: Acute Code(s): I48.91 - Unspecified atrial fibrillation Qualifiers: Atrial fibrillation type: permanent Qualified Code(s): I48.21 - Permanent atrial fibrillation (4) CHF exacerbation: Status: Chronic Code(s): I50.9 - Heart failure, unspecified Qualifiers: Heart failure type: unspecified Qualified Code(s): I50.9 - Heart failure, unspecified Plan Patient is an 89-year-old male who presented to [facility] ED on 04/13/2024 with worsening shortness of breath. Patient was diagnosed with acute congestive heart failure with reduced ejection fraction. Hospital stay complicated by development of upper GI bleed for which patient underwent emergency EGD 1. Acute exacerbation of HFrEF with mild hypoxia, recently diagnosed nonischemic cardiomyopathy - Most recent echo on 03/18 showed EF 25%, stage II diastolic dysfunction, severe global hypokinesis, severely enlarged LA, moderate pulmonary hypertension. Per cardiology, suspected that new nonischemic cardiomyopathy was secondary to paroxysmal A-fib with slow ventricular response. Exacerbation presumed secondary to diuretic nonadherence at home. Improved with IV Lasix 40 mg twice daily, transitioned to p.o. lasix 40 mg twice daily on 04/17. Mild worsening of creatinine on 04/18, decreased to p.o. lasix 40 mg daily. Continue to monitor BMP and urine output daily. ? 04/23/2024 patient remains euvolemic at this point 2. Permanent A-fib with slow ventricular response; Nonsustained V tach ? Rate has consistently been in the 40s to 50s since admission, stable. Not on any rate controlling agents. Not on anticoagulation due to fall risk. Has had multiple runs of nonsustained V. tach during this hospitalization. Electrolytes stable on multiple checks. Per cardiology, patient is high risk for runs of V. tach given nonischemic cardiomyopathy as noted above. Started on p.o. amiodarone 200 mg daily on 04/16. Patient remains hesitant on having AICD placed, will reconsider this in outpatient setting and notably this would need to be done outside of [facility]. Plan is for patient to undergo pacemaker placement on 04/20/2024 ? 04/21/2024; patient underwent pacemaker placement the day prior 3. Acute upper GI bleed ? Patient underwent EGD by Dr. Pearce on 04/19/2024. About 500 mL of bright red blood was aspirated from his stomach. There is also a lot of coffee ground bloody material in his stomach. 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 This lesion was treated with 6 of epinephrine followed by cautery and Hemospray. ? Patient hemoglobin down to 7 plan is for patient to be transfused with 1 unit PRBC. Patient also scheduled to undergo repeat EGD ? 04/23/2024 repeat EGD did show - Grade I esophageal varices. Non-bleeding gastric ulcer with pigmented material. Treated with a heater probe. Normal duodenal bulb. - No specimens collected.. Patient was also transfused with additional unit PRBC hemoglobin up to 8.0 this 4. Hypovolemic shock ? Secondary to upper GI bleed patient was treated Levophed which has since been weaned off -04/23/2024; resolved 5. Anemia ? Secondary to combination of anemia of chronic disorder as well as acute blood loss anemia.Patient was transfused with 2 unit PRBC on 04/19/2024 anemia monitoring H&H and transfuse if patient becomes symptomatic or hemoglobin falls below 7 ? 04/21/2024 patient hemoglobin did drop to 6.2 and order was given for patient to be transfused with additional unit PRBC ? 04/22/2024; hemoglobin up to 7.0 after being transfused 1 unit PRBC additional PRBC unit transfused 6. Essential hypertension ? Patient antihypertensives held following his episode of hypotension during his GI bleed 7. Dyslipidemia -Patient is on statin therapy, continued at home dose 8. Diabetes mellitus type II -patient's oral hypoglycemics held. Placed on long acting insulin, Accu-Cheks a.c. and at bedtime and covered with sliding scale insulin 9. BPH with lower urinary obstructive symptoms - Patient treated with tamsulosin 10. History of gout ? Patient is on probenecid 11. DVT prophylaxis ? Patient was on Lovenox discontinued following his GI bleed SCDs only for now 13. Physical deconditioning - Requested for PT OT eval and child welfare social worker to assist with discharge planning ? 04/22/2024 disposition discussed with family patient will benefit from going to retirement facility Time spent in the patient's overall evaluation,decision-making process, review of diagnostic data, adjustment of management, discussion with other providers, nursing nursing and ancillary staff involved in patient's care documentation,40 Minutes Medications at Discharge Home Medications pravastatin 40 mg tablet 40 mg PO QHS cholesterol 05/14/16 probenecid 500 mg tablet 500 mg PO DAILY gout 05/14/16 cholecalciferol (vitamin D3) 25 mcg (1,000 unit) tablet 1,000 unit PO DAILY vitamin 07/16/16 cyanocobalamin (vitamin B-12) 1,000 mcg tablet 1,000 mcg PO DAILY supplement 07/16/16 metformin 500 mg 24 hr tablet,extended release (gastric retention) 500 mg PO DAILY diabetes 07/16/16 sitagliptin phosphate 50 mg tablet 50 mg PO DAILY diabetes 06/25/19 tamsulosin 0.4 mg capsule (Flomax) 0.8 mg PO QHS urination 06/25/19 docusate sodium 100 mg capsule (Colace) 100 mg PO BID PRN sool softener 09/11/19 ferrous sulfate 325 mg (65 mg iron) tablet (Feosol) 325 mg PO BID iron supplement 09/11/19 folic acid 400 mcg tablet 800 mcg PO DAILY vitamin 09/11/19 insulin glargine 100 unit/mL (3 mL) subcutaneous pen 8 unit subcut QHS diabetes 09/11/19 amlodipine 10 mg tablet See Rx Instructions .Route .COMPLEX BP 03/18/24 blood sugar diagnostic (True Metrix Glucose Test Strip) 03/18/24 gabapentin 400 mg capsule 400 mg PO QHS nerve pain 03/18/24 latanoprost 0.005 % eye drops 1 drp ophthalmic (eye) QHS eye health 03/18/24 pen needle, diabetic 31 gauge x 3/16 (Droplet Pen Needle) 03/18/24 potassium chloride 20 mEq tablet,extended release(part/cryst) 20 meq PO DAILY supplement 03/18/24 furosemide 40 mg tablet (Lasix) 40 mg PO BIDCM #120 tabs 03/20/24 hydralazine 50 mg tablet 50 mg PO 4X/DAY 04/02/24 acetaminophen 325 mg tablet 650 mg (2 x 325 mg) PO Q6H PRN PRN Headache/Fever (T>100f) #0 tabs 04/23/24 amiodarone 200 mg tablet 200 mg PO DAILY #0 tabs 04/23/24 dextromethorphan-guaifenesin 30 mg-600 mg tablet extended [id number] hr (Mucinex DM) 2 tab PO BID #0 tabs 04/23/24 insulin lispro 100 unit/mL subcutaneous pen (Humalog KwikPen (U-100) Insulin) See Protocol subcut ACHS #0 mL 04/23/24 ipratropium 0.5 mg-albuterol 3 mg (2.5 mg base)/3 mL nebulization soln 3 ml inhalation Q6H.RT PRN Shortness Of Breath #0 mL 04/23/24 magnesium chloride 64 mg (magnesium chloride) tablet,delayed release (Mag 64) 64 mg PO BID #0 tabs 04/23/24 menthol 0.44 %-zinc oxide 20.6 % topical ointment (Calmoseptine) 1 applic topical BID #0 grams 04/23/24 pantoprazole 40 mg tablet,delayed release (Protonix) 40 mg PO DAILY #1 TAB 04/23/24 Physical Exam Narrative GENERAL: cooperative HEENT: Atraumatic; normocephalic EYES; Anicteric, Normal Conjunctiva NECK; supple, normal thyroid, RESPIRATORY: Diminished to auscultation CARDIOVASCULAR: Irregular S1 S2, GI: soft, normoactive bowel sounds, : No Renal angle tenderness; EXTREMITIES: No edema, no clubbing, MUSCULOSKELETAL: Left upper extremity immobilized NEURO: Awake; no lateralizing signs. SKIN: No Rash PSYCH; Flat affect Weight / BMI Weight Weight: 92.1 kg Body Mass Index (BMI) 26.9 ABG / Lab / Microbiology Data 04/23/24 05:57 04/23/24 05:57 Laboratory: Laboratory Results - last 24 hr 04/16/24 13:09: Noramiodarone 04/19/24 20:30: Crossmatch See Detail 04/22/24 16:54: POC Glucose 140 H 04/22/24 20:22: POC Glucose 183 H 04/23/24 05:57: WBC 9.7, RBC 2.70 L, Hgb 8.0 L, Hct 26.8 L, MCV 99.3 H, MCH 29.6, MCHC 29.9 L, RDW Std Deviation 62.4 H, RDW Coeff of Rachelle 18.7 H, Plt Count 132 L, MPV 10.6, Immature Gran % (Auto) 0.800, Neut % (Auto) 82.0 H, Lymph % (Auto) 7.0 L, [place] % (Auto) 9.7, Eos % (Auto) 0.3, Baso % (Auto) 0.2, Absolute Neuts (auto) 7.9 H, Absolute Lymphs (auto) 0.68 L, Nucleated RBC % 0.2, Sodium 146 H, Potassium 4.5, Chloride 118 H, Carbon Dioxide 26.0, Anion Gap 2 L, BUN 37 H, Creatinine 1.31 H, Estim Creat Clear Calc 41.96, Est GFR (MDRD) Af Amer 66, E st GFR (MDRD) Non-Af 55 L, BUN/Creatinine Ratio 28.2 H, Glucose 126 H, Calcium 8.8 04/23/24 06:07: POC Glucose 115 H 04/23/24 11:26: POC Glucose 180 H Microbiology: Microbiology 04/14/24 10:15 Mucosa - Throat Streptococcus pyogenes (PCR) - Final 04/14/24 10:15 Mucosa - Nose SARS-CoV-2, Influenza & RSV (PCR) - Final 04/14/24 10:12 Urine, Clean Catch Legionella Antigen - Final 04/14/24 10:12 Urine, Clean Catch Streptococcus pneumoniae Antigen (M - Final D/C Instructions Discharge Diet: Soft diet, 1800 Calorie Control Diet and Swallowing Precautions Discharge Activity: Return to Normal Activity Call your doctor if you observe: Fever of 101 or Higher, Shortness of breath, Fainting spells and Chest pain Meaningful Use Info Meaningful Use Meaningful Use Diagnoses (Choose all that apply): None applicable Ischemic Stroke Statin Dosing Therapy Reference: STATIN DOSE THERAPY REFERENCE: * Patients > 75 years receive moderate or high dose statin therapy. * Patients 75 years or YOUNGER should receive HIGH intensity statin dose unless contraindicated. You will be required to document reason for non-treatment if statin daily dose does not meet guidelines. HIGH DOSE STATIN THERAPY DAILY Atorvastatin > than or = to 40 mg Rosuvastatin > than or = to 20 mg Amlodipine + Atorvastatin > than or = to 2.5/40 mg Ezetimibe + Simvastatin 10/80 mg Simvastatin 80mg Discharge Plan Admission Admit Date/Time: 04/13/24 21:47 Attending Provider: Mark Anthony Desir Primary Care Provider: Cory Mckeon Consulting Providers: Eleno Sherwood; Alex Hooks; Marshal Hinson; Rahat Weiner Discharge Orders/Prescriptions Prescriptions: New acetaminophen 325 mg Tablet 650 mg PO Q6H PRN PRN (Reason: Headache/Fever (T>100f)) Qty: 0 0RF amiodarone 200 mg Tablet 200 mg PO DAILY Qty: 0 0RF Mucinex DM 30-600 mg Tablet Extended Release 12 Hr 2 tab PO BID Qty: 0 0RF insulin lispro [Humalog KwikPen Insulin] 100 unit/mL Insulin Pen See Protocol subcut ACHS Qty: 0 0RF Protocol: 4. Sliding Scale Insulin High-Med Dosing Condition: 150-199 mg/dl = 2 units Condition: 200-259 mg/dl = 4 units Condition: 260-324 mg/dl = 6 units Condition: 325-374 mg/dl = 8 units Condition: 375-409 mg/dl = 10 units Condition: 410-449 mg/dl = 11 units Condition: Greater than 449 call physician Protocol Text: - Use for Total Daily Dose of Insulin 56-80 units - Patient who are insulin resistant or septic HIGH MEDIUM DOSING ALGORITHM ipratropium-albuterol 0.5 mg-3 mg(2.5 mg base)/3 mL Solution For Nebulization 3 ml inhalation Q6H.RT PRN (Reason: Shortness Of Breath) Qty: 0 0RF magnesium chloride [Mag 64] 64 mg Tablet,Delayed Release (Dr/Ec) 64 mg PO BID Qty: 0 0RF menthol-zinc oxide [Calmoseptine] 0.44-20.6 % Ointment 1 applic topical BID Qty: 0 0RF Protocol: *Topical Application Instructions APPLICATION INSTRUCTIONS: apply to buttocks/coccyx pantoprazole [Protonix] 40 mg tablet,delayed release (DR/EC) 40 mg PO DAILY Qty: 1 0RF Continued tamsulosin [Flomax] 0.4 mg capsule 0.8 mg PO QHS ferrous sulfate [Feosol] 325 mg (65 mg iron) tablet 325 mg PO BID docusate sodium [Colace] 100 mg capsule 100 mg PO BID PRN (Reason: sool softener) folic acid 400 mcg tablet 800 mcg PO DAILY hydralazine 50 mg tablet 50 mg PO 4X/DAY pravastatin 40 MG tablet 40 mg PO QHS Patient Comments: Cholestrol probenecid 500 MG tablet 500 mg PO DAILY Patient Comments: Gout sitagliptin phosphate 50 mg tablet 50 mg PO DAILY Patient Comments: Diabetes insulin glargine 100 unit/mL (3 mL) insulin pen 8 unit subcut QHS Patient Comments: Long acting insulin for diabetes cyanocobalamin (vitamin B-12) 1,000 MCG tablet 1,000 mcg PO DAILY Patient Comments: Supplement metformin 500 MG tablet,ER sandra.retention 24 hr 500 mg PO DAILY Patient Comments: Diabetes cholecalciferol (vitamin D3) 1,000 UNIT tablet 1,000 unit PO DAILY Patient Comments: Supplement gabapentin 400 mg capsule 400 mg PO QHS latanoprost 0.005 % drops 1 drp ophthalmic (eye) QHS potassium chloride 20 mEq tablet,ER particles/crystals 20 meq PO DAILY amlodipine 10 mg tablet See Rx Instructions .ROUTE .COMPLEX Rx Instructions: TAKE 1 TABLET EVERY BEDTIME (DME) True Metrix Glucose Test Strip Strip MISCELLANEOUS Patient Comments: [NO ORIGINAL SIG] (DME) pen needle, diabetic [Droplet Pen Needle] 31 gauge x 3/16 needle MISCELLANEOUS Patient Comments: [NO ORIGINAL SIG] furosemide [Lasix] 40 mg tablet 40 mg PO BIDCM Qty: 120 0RF Discontinued losartan [Cozaar] 100 mg tablet 150 mg PO DAILY aspirin 81 MG tablet 81 mg PO DAILY@0800 Patient Comments: Heart health magnesium chloride 71.5 mg tablet,delayed release (DR/EC) 71.5 mg PO BID Referrals / Follow Up: Cory Mckeon MD [Primary Care Provider] - Disposition Disposition (needs filled in before D/C Order can be placed): [facility] Facility Charges/Coding Visit Charges Inpatient E&M: 17697 Disch Hosp >30min
--- NOTE | 2024-04-23 13:24 | CASEMGMT ---
AYO called patient's daughter Kaylee and let her know patient will be going to [facility] today. AYO let Kaylee know patient was worried about the cost so SW called and obtained his assisted facility benefits. Days 1-20 there is a $10 per day co-pay and days 21-100 it is $ 203 per day co-pay. Kaylee thanked AYO for finding out that information and letting her know. Plan: d/c to [facility] under skilled level of care.
--- NOTE | 2024-04-23 14:11 | PHA.DC.MR.R ---
Pharmacy CT Med Reconciliation Pharmacy Service has performed discharge medication reconciliation for this patient upon transfer to TCU The patient's discharge medication list was reviewed for discrepancies and discrepancies were resolved. Medications at Discharge Home Medications pravastatin 40 mg tablet 40 mg PO QHS cholesterol 05/14/16 probenecid 500 mg tablet 500 mg PO DAILY gout 05/14/16 cholecalciferol (vitamin D3) 25 mcg (1,000 unit) tablet 1,000 unit PO DAILY vitamin 07/16/16 cyanocobalamin (vitamin B-12) 1,000 mcg tablet 1,000 mcg PO DAILY supplement 07/16/16 metformin 500 mg 24 hr tablet,extended release (gastric retention) 500 mg PO DAILY diabetes 07/16/16 sitagliptin phosphate 50 mg tablet 50 mg PO DAILY diabetes 06/25/19 tamsulosin 0.4 mg capsule (Flomax) 0.8 mg PO QHS urination 06/25/19 docusate sodium 100 mg capsule (Colace) 100 mg PO BID PRN sool softener 09/11/19 ferrous sulfate 325 mg (65 mg iron) tablet (Feosol) 325 mg PO BID iron supplement 09/11/19 folic acid 400 mcg tablet 800 mcg PO DAILY vitamin 09/11/19 insulin glargine 100 unit/mL (3 mL) subcutaneous pen 8 unit subcut QHS diabetes 09/11/19 amlodipine 10 mg tablet See Rx Instructions .Route .COMPLEX BP 03/18/24 blood sugar diagnostic (True Metrix Glucose Test Strip) 03/18/24 gabapentin 400 mg capsule 400 mg PO QHS nerve pain 03/18/24 latanoprost 0.005 % eye drops 1 drp ophthalmic (eye) QHS eye health 03/18/24 pen needle, diabetic 31 gauge x /16 (Droplet Pen Needle) 03/18/24 potassium chloride 20 mEq tablet,extended release(part/cryst) 20 meq PO DAILY supplement 03/18/24 furosemide 40 mg tablet (Lasix) 40 mg PO BIDCM #120 tabs 03/20/24 hydralazine 50 mg tablet 50 mg PO 4X/DAY 04/02/24 acetaminophen 325 mg tablet 650 mg (2 x 325 mg) PO Q6H PRN PRN Headache/Fever (T>100f) #0 tabs 04/23/24 amiodarone 200 mg tablet 200 mg PO DAILY #0 tabs 04/23/24 dextromethorphan-guaifenesin 30 mg-600 mg tablet extended rywdild16 hr (Mucinex DM) 2 tab PO BID #0 tabs 04/23/24 insulin lispro 100 unit/mL subcutaneous pen (Humalog KwikPen (U-100) Insulin) See Protocol subcut ACHS #0 mL 04/23/24 ipratropium 0.5 mg-albuterol 3 mg (2.5 mg base)/3 mL nebulization soln 3 ml inhalation Q6H.RT PRN Shortness Of Breath #0 mL 04/23/24 magnesium chloride 64 mg (magnesium chloride) tablet,delayed release (Mag 64) 64 mg PO BID #0 tabs 04/23/24 menthol 0.44 %-zinc oxide 20.6 % topical ointment (Calmoseptine) 1 applic topical BID #0 grams 04/23/24 pantoprazole 40 mg tablet,delayed release (Protonix) 40 mg PO DAILY #1 TAB 04/23/24
--- NOTE | 2024-04-23 14:45 | NURSING ---
Report called to [facility] nurse Moraima.
[2024-04-23 14:48] VITALS: BP 114/59; PULSE 55; RESP 17; TEMP 36.7; O2SAT 94
== END 2024-04-23 15:47 | disposition skilled nursing facility (03) | DRG 260 ==
LOC: ED 21:44 → PCU 21:56 → ICU 04-19 20:33 → PCU 04-20 16:03
PROVIDERS: Anesthesiology; Family Medicine; Hospitalist; Internal Medicine; Internal Medicine Gastroenterology; Internal Medicine Pulmonary Disease; Physician Assistant Medical; Admitting Provider Family Medicine; Emergency Provider Student in an Organized Health Care Education/Training Program; PCP Family Medicine; Visit Provider Internal Medicine
PROC: 0DJ08ZZ Inspection of Upper Intestinal Tract, Via Natural or Artificial Opening Endoscopic (ICD-10-PCS; CPT 43235; principal; 2024-04-16 11:40)
DX: I13.0 Hypertensive heart and chronic kidney disease with heart failure and stage 1 through stage 4 chronic kidney disease, or unspecified chronic kidney disease (principal); R57.1 Hypovolemic shock; K31.82 Dieulafoy lesion (hemorrhagic) of stomach and duodenum; K31.811 Angiodysplasia of stomach and duodenum with bleeding; I50.23 Acute on chronic systolic (congestive) heart failure; R57.8 Other shock; I47.20 Ventricular tachycardia, unspecified; D62 Acute posthemorrhagic anemia; I85.00 Esophageal varices without bleeding; I48.21 Permanent atrial fibrillation; N17.9 Acute kidney failure, unspecified; K92.0 Hematemesis; I27.20 Pulmonary hypertension, unspecified; I42.8 Other cardiomyopathies; E11.22 Type 2 diabetes mellitus with diabetic chronic kidney disease; N18.30 Chronic kidney disease, stage 3 unspecified; Z79.4 Long term (current) use of insulin; E11.40 Type 2 diabetes mellitus with diabetic neuropathy, unspecified; E11.51 Type 2 diabetes mellitus with diabetic peripheral angiopathy without gangrene; D50.9 Iron deficiency anemia, unspecified; I35.0 Nonrheumatic aortic (valve) stenosis; I25.10 Atherosclerotic heart disease of native coronary artery without angina pectoris; E78.5 Hyperlipidemia, unspecified; I44.7 Left bundle-branch block, unspecified; M10.9 Gout, unspecified; I71.20 Thoracic aortic aneurysm, without rupture, unspecified; K25.9 Gastric ulcer, unspecified as acute or chronic, without hemorrhage or perforation; R09.02 Hypoxemia; Z66 Do not resuscitate; Z87.891 Personal history of nicotine dependence; Z91.199 Patient's noncompliance with other medical treatment and regimen due to unspecified reason; Z79.82 Long term (current) use of aspirin; Z82.3 Family history of stroke; H91.90 Unspecified hearing loss, unspecified ear; Z80.0 Family history of malignant neoplasm of digestive organs; I49.3 Ventricular premature depolarization; N40.0 Benign prostatic hyperplasia without lower urinary tract symptoms
CPT/HCPCS: 33207; 36415; 71045; 71046; 71047; 80048; 80061; 80076; 80299; 82607; 82728; 82962; 83036; 83540; 83550; 83605; 83735; 83880; 84100; 84484; 85014; 85018; 85025; 85027; 85045; 85384; 85610; 85730; 86850; 86900; 86901; 86920; 86922; 87449; 87631; 87641; 87651; 92526; 92610; 93005; 94640; 94668; 97110; 97116; 97162; 97166; 97530; 97535; 99152; 99153; 99285; J7030; J7040; J7050; J7120; P9016; Q9967; A4216; C1894; J1940; J2405; J2916; J3490

== ENCOUNTER 2024-04-23 16:08 | Inpatient (IN) | payer MEDICARE, SELFPAY ==
[2024-04-23 16:17] VITALS: BP 131/62; PULSE 64; RESP 17; TEMP 36.6; O2SAT 92; BMI 24.3
[2024-04-23 17:52] LABS: Bedside Glucose 137 mg/dL (74-106)
[2024-04-23] MEDS: Ferrous Sulfate 325 MG Tablet PO (18:00)
[2024-04-23] MEDS: Furosemide 40 MG Tablet PO (18:00)
[2024-04-23 18:01] VITALS: BP 131/62; PULSE 64
[2024-04-23] MEDS: hydrALAZINE 50 MG Tablet PO ×2 (18:01→21:51)
--- NOTE | 2024-04-23 20:32 | HP.PCM_ITS ---
HPI - General General Date of Admission: 04/23/24 Date of Service: 04/23/24 Chief Complaint: Here for rehabilitation. HPI Narrative 04/13/2024 JASON STANLEY, is a 89 Male who presents to [facility] ED SOB. SOB, history of CHF, non-compliant with Lasix 40mg bid. Patient does not like to urinate too much, +orthopnea, +dyspnea on exertion. Able to walk. EKG atrial fibrillation with slow ventricular response, CXR CHF versus pneumonia. Lasix given. 04/13/2024 Admit [facility]. Lasix 40mg iv bid, oxygen for CHF. 04/14/2024 Cough, Sore throat, yellow sputum. EF 25%. Zosyn IV for pneumonia. Dr. Pearce consulted for dysphagia, anemia, EGD recommended. 04/15/2024 Asymptomatic run VT, refused AICD in past. Lasix 40mg iv bid for acute HFrEF. No DOAC for atrial fibrillation 2/2 falls. Stop antibiotics, pneumonia unlikely. 04/16/2024 Dr. Pearce EGD, small esophageal varice. Coffee ground entire stomach, red blood gastric body. Angiodysplastic lesion treated with heater probe. 04/17/2024 Patient ready to go home. Lasix 40mg po bid for acute HFrEF. Plan pacemaker 04/20/2024 for bradycardia. Pneumonia ruled out. 04/18/2024 Cut Lasix to 40mg daily 2/2 elevated creatinine. Pacemaker 04/20/2024. 04/19/2024 No change. 04/19/2024 Hematemesis, stat H&H, transfuse 1 unit PRBC, 500cc iv bolus, transfer to ICU. 04/20/2024 Dr. Sinclair placed permanent pacemaker. 04/21/2024 Hemoglobin 6.2, Transfuse 1 unit PRBC. 04/22/2024 Hemoglobin 7.0, may need SNF, plan transfuse 1 unit PRBC. 04/22/2024 Dr. Pearce EGD grade 1 esophageal varices. Non-bleeding gastric ulcer with pigmented material, treated with heater probe. 04/23/2024 Admit to TCU with debility, here for rehabilitation, strengthening, prior to discharge home with . [facility] Medical History (Updated 04/23/24 @ 20:[address] Dave Dupont MD) Presence of cardiac pacemaker Atrial fibrillation with slow ventricular response Hypothyroidism Non-smoker Peripheral vascular disease Prostate cancer Lumbar stenosis Gout DDD (degenerative disc disease) Carotid artery stenosis Chronic diastolic (congestive) heart failure Non-rheumatic aortic stenosis Atherosclerosis of coronary artery of [place] heart without angina pectoris Secondary pulmonary arterial hypertension Essential (primary) hypertension Left bundle branch block Stool guaiac positive Iron deficiency anemia Personal history of colonic polyps History of malignant neoplasm of colon Dysphasia Chronic kidney disease, stage III (moderate) Thoracic aortic aneurysm without rupture Colon cancer, ascending Dyslipidemia Type II diabetes mellitus Home Medications ?Medication ?Instructions ?Recorded ?Last Taken ?Type pravastatin 40 mg tablet 40 mg PO QHS cholesterol 05/14/16 04/22/24 History probenecid 500 mg tablet 500 mg PO DAILY gout 05/14/16 04/23/24 08:15 History cholecalciferol (vitamin D3) 25 1,000 unit PO DAILY vitamin 07/16/16 04/23/24 08:25 History mcg (1,000 unit) tablet cyanocobalamin (vitamin B-12) 1,000 mcg PO DAILY supplement 07/16/16 04/23/24 08:25 History 1,000 mcg tablet metformin 500 mg 24 hr 500 mg PO DAILY diabetes 07/16/16 04/14/24 History tablet,extended release (gastric retention) sitagliptin phosphate 50 mg tablet 50 mg PO DAILY diabetes 06/25/19 04/23/24 08:25 History tamsulosin 0.4 mg capsule (Flomax) 0.8 mg PO QHS urination 06/25/19 04/22/24 History docusate sodium 100 mg capsule 100 mg PO BID PRN sool softener 09/11/19 Unknown History (Colace) ferrous sulfate 325 mg (65 mg 325 mg PO BID iron supplement 09/11/19 04/23/24 08:25 History iron) tablet (Feosol) folic acid 400 mcg tablet 800 mcg PO DAILY vitamin 09/11/19 04/12/24 History insulin glargine 100 unit/mL (3 8 unit subcut QHS diabetes 09/11/19 04/22/24 History mL) subcutaneous pen amlodipine 10 mg tablet See Rx Instructions .Route 03/18/24 04/18/24 History .COMPLEX BP blood sugar diagnostic (True 03/18/24 Unknown History Metrix Glucose Test Strip) gabapentin 400 mg capsule 400 mg PO QHS nerve pain 03/18/24 04/22/24 History latanoprost 0.005 % eye drops 1 drp ophthalmic (eye) QHS eye 03/18/24 04/22/24 History health pen needle, diabetic 31 gauge x 03/18/24 Unknown History 01/31 (Droplet Pen Needle) potassium chloride 20 mEq 20 meq PO DAILY supplement 03/18/24 04/23/24 08:15 History tablet,extended release(part/cryst) furosemide 40 mg tablet (Lasix) 40 mg PO BIDCM Edema #120 tabs 03/20/24 04/12/24 Rx hydralazine 50 mg tablet 50 mg PO 4X/DAY BP 04/02/24 04/23/24 14:25 History acetaminophen 325 mg tablet 650 mg (2 x 325 mg) PO Q6H PRN PRN 04/23/24 04/23/24 11:55 Rx Headache/Fever (T>100f) #0 tabs amiodarone 200 mg tablet 200 mg PO DAILY Heart #0 tabs 04/23/24 04/23/24 08:25 Rx dextromethorphan-guaifenesin 30 2 tab PO BID Congestion #0 tabs 04/23/24 04/23/24 08:25 Rx mg-600 mg tablet extended hr (Mucinex DM) insulin lispro 100 unit/mL See Protocol subcut ACHS Diabetes 04/23/24 04/23/24 11:25 Rx subcutaneous pen (Humalog KwikPen #0 mL (U-100) Insulin) ipratropium 0.5 mg-albuterol 3 mg 3 ml inhalation Q6H.RT PRN 04/23/24 04/15/24 Rx (2.5 mg base)/3 mL nebulization Shortness Of Breath #0 mL soln magnesium chloride 64 mg 64 mg PO BID Supplement #0 tabs 04/23/24 04/23/24 08:30 Rx (magnesium chloride) tablet,delayed release (Mag 64) menthol 0.44 %-zinc oxide 20.6 % 1 applic topical BID Skin #0 grams 04/23/24 04/23/24 08:25 Rx topical ointment (Calmoseptine) pantoprazole 40 mg tablet,delayed 40 mg PO DAILY GERD #1 TAB 04/23/24 Unknown Rx release (Protonix) Allergy/AdvReac Type Severity Reaction Status Date / Time Milk Containing Products AdvReac NEEDS Verified 04/13/24 17:29 (Dairy) (Milk Containing FOLLOW-UP Products) quinapril (From Accupril) AdvReac Other Verified 04/13/24 17:29 Family History Mother Colon cancer Heart disease Hypertension CAD (coronary artery disease) Father Cancer prostate CVA (cerebral vascular accident) CAD (coronary artery disease) Brother CAD (coronary artery disease) CABG Brother CAD (coronary artery disease) CABG Surgical History History of left heart catheterization (07/2001) H/O colectomy S/P colonoscopy S/P cataract extraction Status post colectomy Social History household members: spouse Smoking Status: Former smoker how long ago did patient quit smokin years ago alcohol intake: never substance use type: does not use ROS Constitutional Constitutional: Denies chills, fever(s) or weight gain ENT HEENT: Denies headache(s), nasal congestion or nasal discharge Cardiovascular Cardiovascular: Denies chest pain or palpitations Respiratory/Chest Respiratory/Chest: Denies cough, excessive phlegm production or shortness of breath with exertion Gastrointestinal Gastrointestinal: Denies abdominal pain, nausea or vomiting Genitourinary Genitourinary: Denies dysuria Musculoskeletal Musculoskeletal: Denies joint pain or joint swelling Integumentary Integumentary: Denies rash or wounds Neurologic Neurologic: Denies focal weakness, numbness or tingling Psychiatric Psychiatric: Denies anxiety, auditory hallucinations, depression, homicidal ideation or suicidal ideation Vital Signs Vital Signs Vital Signs: 04/23/24 16:17 04/23/24 18:01 04/23/24 18:29 Temperature 97.8 F Temperature Source Temporal Pulse Rate 64 64 Pulse Rhythm Regular Pulse Strength Normal (2+) Respiratory Rate 17 Respiratory Effort Normal Non-Labored Short of Breath Respiratory Depth Normal Respiratory Pattern Normal Blood Pressure 131/62 H 131/62 H Blood Pressure Mean 85 Blood Pressure Source Monitor Blood Pressure Position Semi-Fowlers Blood Pressure Location Right Arm Pulse Ox 92 Oxygen Delivery Method Room Air Room Air Weight Weight: 83.642 kg Body Mass Index (BMI) 24.3 Physical Exam Const alert General Appearance: cooperative HEENT normocephalic Eyes PERRL and EOMs intact bilaterally Neck supple, no JVD and no carotid bruits Resp normal respiratory effort, normal air movement and clear to auscultation bilaterally Cardio regular rate and regular rhythm GI normal to inspection, nondistended, normoactive bowel sounds, non-tender and non-distended Extremity normal capillary refill General Extremity: Negative for edema Skin no rashes or lesions noted General Skin Exam: no breakdown Psych affect normal Appearance: appropriate Results Lab / Micro Data Labs: Laboratory Results - last 24 hr 04/23/24 17:34: POC Glucose 137 H Assessment & Plan Assessment/Plan (1) Debility: (2) Acute respiratory failure with hypoxia: (3) Acute HFrEF (heart failure with reduced ejection fraction): (4) Pneumonia: (5) Gastric ulcer: (6) Angiodysplasia of stomach: (7) Upper gastrointestinal bleed: (8) Acute blood loss anemia: (9) Atrial fibrillation with slow ventricular response: (10) Bradycardia: (11) Presence of cardiac pacemaker: (12) Hyperlipidemia: (13) Gout: (14) Type 2 diabetes mellitus with hyperglycemia: (15) Essential (primary) hypertension: (16) BPH (benign prostatic hyperplasia): (17) Iron deficiency anemia: QUALIFIERS: Iron deficiency anemia type: other iron deficiency Qualified Code(s): D50.8 - Other iron deficiency anemias PLAN: Plan 89 year old male with below past medical history hospitalized for acute respiratory failure with hypoxia 2/2 acute HFrEF, pneumonia ruled out, complicated by UGIB, bradycardia requiring permanent pacemaker placement, admitted to TCU with debility, here for rehabilitation, strengthening, prior to discharge home with . * Debility - PT/OT. * Pain - Tylenol 1000mg q6 prn pain (1-10). * Bowel - senna/colace 1 tablet bid, Magnesium citrate 300ml daily prn. * Adult immunization - Administer pneumonia vaccine, covid vaccine, flu vaccine as appropriate. * DVT prophylaxis - Hold, GI bleed. * Atrial fibrillation - Amiodarone 200mg daily, hold anticoagulation 2/2 falls. * Hypertension - Amlodipine 10mg daily, Hydralazine 50mg 4x/day. * Vitamin D deficiency - D3 25mcg daily. * Vitamin B12 deficiency - B12 1000mcg daily. * Iron deficiency anemia - Ferrous sulfate 325mg bidcm. * Folate deficiency - Folic acid 1mg daily. * Acute HFrEF (EF 25%), Hydralazine 50mg 4x/day, Furosemide 40mg bidcm. * Diabetic polyneuropathy - Gabapentin 400mg qhs. * Cough - Robitussin DM 2 tablets bid. * Diabetes Mellitus II - Metformin XR 500mg daily, Tradjenta 5mg daily, Glargine 8 units qhs. * Shortness of breath - Duoneb 3ml q6h. * Glaucoma - Latanoprost 1gtt ou qhs. * Hypomagnesemia - Magnesium chloride 64mg bid. * Skin irritation - Calmoseptine topical bid. * Gastric ulcer - Pantoprazole 40mg daily. * Hypokalemia - KCL 20meq daily. * Hyperlipidemia - Pravastatin 40mg qhs. * Gout - Probenecid 500mg daily. * BPH - Tamsulosin 0.8mg qhs.
[2024-04-23] MEDS: Gabapentin 400 MG Capsule PO (21:48)
[2024-04-23] MEDS: amLODIPine 10 MG Tablet PO (21:50)
[2024-04-23] MEDS: Tamsulosin HCl 0.4 MG Capsule 0.8 MG PO (21:50)
[2024-04-23] MEDS: Latanoprost 0.005% 1 Bottle 1 DRP OPHTHALMIC (21:50)
[2024-04-23 21:51] VITALS: BP 126/63; PULSE 67
[2024-04-23] MEDS: Magnesium Chloride 64 MG Delay Rel.Tablet PO (21:51)
[2024-04-23] MEDS: Pravastatin 40 MG Tablet PO (21:51)
[2024-04-23] MEDS: guaiFENesin/D-Methorphan TAB.SR.12H 2 TABLET PO (21:51)
[2024-04-23] MEDS: Senna/Docusate Sodium 1 Tablet PO (21:54)
[2024-04-23] MEDS: Menthol/Lanolin/Calamine/Znox 113 GM Tube 1 APPLIC TOPICAL (21:54)
[2024-04-23] MEDS: Insulin Glargine-YFGN 100 UNIT/ML Pen 8 UNIT SC (21:54)
[2024-04-23 22:23] LABS: Bedside Glucose 131 mg/dL (74-106)
[2024-04-24] VITALS (7 sets, daily range): BP systolic 107–126; BP diastolic 49–62; PULSE 60–78; RESP 16–18; TEMP 36.6; O2SAT 92–94; BMI 24.5
[2024-04-24] MEDS: hydrALAZINE 50 MG Tablet PO ×4 (05:09→21:37)
[2024-04-24 05:56] LABS: Absolute Lymphocyte Count 0.73 X10^3/uL (0.83-4.51); Absolute Neutrophil Count 8.4 X10^3/uL (2.0-7.7); Basophil# 0.03 X10^3/uL; Basophil% 0.3 % (0-1); Eosinophil# 0.03 X10^3/uL; Eosinophils% 0.3 % (0-5); Hematocrit 25.9 % (40-54); Hemoglobin 7.5 g/dL (13.0-16.5); Lymphocyte # 0.73 X10^3/ul (0.83-4.51); Lymphocyte % 7.2 % (19-41); Mean Corpuscular Hgb 29.1 pg (27.0-32.0); Mean Corpuscular Volume 100.4 fL (80-94); Monocyte% 8.9 % (0-10); NRBC Flagged by Analyzer 0 % (0-5); Neutrophil # 8.37 X10^3/uL (2.7-7.7); Neutrophil % 82.7 % (47-70); Platelet Count 139 K/mm3 (150-450); RBC Distribution Width CV 18.6 % (11.6-14.6); RBC Distribution Width SD 63.7 fl (35.1-43.9); Red Blood Count 2.58 M/mm3 (4.6-6.2); White Blood Count 10.1 K/mm3 (4.4-11.0)
[2024-04-24 06:20] LABS: Bedside Glucose 130 mg/dL (74-106)
[2024-04-24 07:20] LABS: Anion Gap 2 (5-15); BUN 36 mg/dL (7-18); Calcium,Total 9.1 mg/dL (8.5-10.1); Chloride 114 mmol/L (98-107); Creatinine, Serum 1.44 mg/dL (0.70-1.30); EST Glomerular Filtration Rate 49 mL/min (>60); Est Glom Filt Rate - Afr Amer 59 mL/min (>60); Glucose 135 mg/dL (74-106); Potassium 4.1 mmol/L (3.5-5.1); Sodium Level 145 mmol/L (136-145)
[2024-04-24] MEDS: Folic Acid 1 MG Tablet PO (09:19)
[2024-04-24] MEDS: Ferrous Sulfate 325 MG Tablet PO ×2 (09:19→18:14)
[2024-04-24] MEDS: Furosemide 40 MG Tablet PO ×2 (09:20→18:15)
[2024-04-24] MEDS: Pantoprazole Sodium 40 MG Tablet PO (09:20)
[2024-04-24] MEDS: Potassium Chloride Oral Tablet 20 MEQ PO (09:20)
[2024-04-24] MEDS: metFORMIN (XR) 500 MG Tablet PO (09:20)
[2024-04-24] MEDS: Amiodarone 200 MG Tablet PO (09:20)
[2024-04-24] MEDS: Magnesium Chloride 64 MG Delay Rel.Tablet PO ×2 (09:20→21:38)
[2024-04-24] MEDS: guaiFENesin/D-Methorphan TAB.SR.12H 2 TABLET PO ×2 (09:21→21:38)
[2024-04-24] MEDS: Cyanocobalamin 500 MCG Tablet 1000 MCG PO (09:21)
[2024-04-24] MEDS: Cholecalciferol (VIT D3) 25 MCG TABLET (1,000 UNITS) PO (09:21)
[2024-04-24] MEDS: Menthol/Lanolin/Calamine/Znox 113 GM Tube 1 APPLIC TOPICAL ×2 (09:21→21:37)
[2024-04-24] MEDS: LINAGLIPTIN 5 MG TABLET PO (09:21)
[2024-04-24] MEDS: Senna/Docusate Sodium 1 Tablet PO ×2 (09:24→21:39)
[2024-04-24] MEDS: Tuberculin,Purif.prot.deriv. 50 TU/ML Vial 0.1 ML ID (10:26)
--- NOTE | 2024-04-24 10:37 | NURSING ---
liz removed per order, pt tolerated well. penis noted to be edematous on removal. will continue to monitor.
[2024-04-24 11:19] LABS: Bedside Glucose 176 mg/dL (74-106)
--- NOTE | 2024-04-24 12:20 | NURSING ---
Activity Coordinate Note; Activity Asset: Doni Maldonado is independent in his choice of daily activities. He watches tv, enjoys the [employer] and visits from his family. He stated he welcomes visits from the manager technical services and therapy dog when available. Staff will remind him of weekly activities, encourage social activities and respect his right to say no.
--- NOTE | 2024-04-24 13:04 | NURSING ---
Updated that a patient on the unit tested positive for covid. Patient does not want family called.
--- NOTE | 2024-04-24 14:45 | CHAPLAIN ---
Type of Pastoral Visit ___ Initial Visit _x__ Follow-up Visit ___ On-call Visit ___ General Patient Visit ___ Spiritual Assessment ___ Family Conference ___ Bereavement ___ Rapid Response ___ Code Blue ___ Other (describe below) Pastoral Care Referral From ___ Patient _x__ Family ___ Nurse ___ Physician ___ Plant Director ___ Print Production Associate ___ Other (describe below) Sacrament/Intervention _x__ Active listening ___ Anointing ___ Protestant ___ Bereavement ___ Communion ___ Radhika exploration ___ ___ Life review _x__ Prayer ___ Reconciliation ___ Sacrament of Sick ___ Supportive presence ___ Wedding ___ Other (describe below) Pastoral Comments several family members are in the room and all are reading either the paper or their phone; patient is sitting up in the chair; pt reports some improvements but also some new needs for healing; pt welcomes prayers; other family members indicate the same; spouse speaks up about desire to have pt to return home and be with her; prayer is welcomed
--- NOTE | 2024-04-24 14:58 | CASEMGMT ---
Social Work SW met with pt, pt's and pt's dgt and introduced self and role of SW. SW completed psychosocial assessment. Advance Directives are on file at [facility] with pt Veda listed as decision maker. SW explained [employer] M[employer] benefit and that [employer] will make determination of length of stay and pt will be notified. Pt is aware that continued stay is not guaranteed. Pt lives at home with his and was independent prior to hospitalization. Pt plans to return home with at time of dc. SW will continue to follow for dc planning and support. REBECCA Gallardo
[2024-04-24 16:44] LABS: Bedside Glucose 154 mg/dL (74-106)
--- NOTE | 2024-04-24 17:36 | NURSING ---
pt unable to void after liz removal @ 1030 am today, pt scanned for 426cc. st cathed without resistance for 400cc clear straw urine. no odor. dr erickson updated, new order to st cath >350cc x3 then insert liz if needed. pt already on flomax 0.8mg for BPH. pt penis very edematous.
[2024-04-24] MEDS: Polyethylene Glycol 3350 17 GM PACKET PO (18:13)
[2024-04-24 21:32] LABS: Bedside Glucose 178 mg/dL (74-106)
[2024-04-24] MEDS: Gabapentin 400 MG Capsule PO (21:35)
[2024-04-24] MEDS: Insulin Glargine-YFGN 100 UNIT/ML Pen 8 UNIT SC (21:36)
[2024-04-24] MEDS: Latanoprost 0.005% 1 Bottle 1 DRP OPHTHALMIC (21:36)
[2024-04-24] MEDS: Tamsulosin HCl 0.4 MG Capsule 0.8 MG PO (21:37)
[2024-04-24] MEDS: Pravastatin 40 MG Tablet PO (21:38)
[2024-04-24] MEDS: amLODIPine 10 MG Tablet PO (21:39)
[2024-04-25 05:40] VITALS: BP 117/59; PULSE 60
[2024-04-25] MEDS: hydrALAZINE 50 MG Tablet PO ×4 (05:40→21:49)
[2024-04-25 07:00] LABS: Hematocrit 25.2 % (40-54); Hemoglobin 7.6 g/dL (13.0-16.5)
[2024-04-25 07:01] LABS: Bedside Glucose 121 mg/dL (74-106)
[2024-04-25] MEDS: Ferrous Sulfate 325 MG Tablet PO ×2 (09:24→17:23)
[2024-04-25] MEDS: Folic Acid 1 MG Tablet PO (09:25)
[2024-04-25] MEDS: metFORMIN (XR) 500 MG Tablet PO (09:25)
[2024-04-25] MEDS: Furosemide 40 MG Tablet PO ×2 (09:25→09:28)
[2024-04-25] MEDS: Amiodarone 200 MG Tablet PO (09:26)
[2024-04-25] MEDS: Potassium Chloride Oral Tablet 20 MEQ PO (09:27)
[2024-04-25] MEDS: guaiFENesin/D-Methorphan TAB.SR.12H 2 TABLET PO ×2 (09:27→21:51)
[2024-04-25] MEDS: Magnesium Chloride 64 MG Delay Rel.Tablet PO ×2 (09:27→21:51)
[2024-04-25] MEDS: Senna/Docusate Sodium 1 Tablet PO ×2 (09:28→21:51)
[2024-04-25] MEDS: Pantoprazole Sodium 40 MG Tablet PO (09:28)
[2024-04-25] MEDS: Cyanocobalamin 500 MCG Tablet 1000 MCG PO (09:29)
[2024-04-25] MEDS: LINAGLIPTIN 5 MG TABLET PO (09:29)
[2024-04-25] MEDS: Cholecalciferol (VIT D3) 25 MCG TABLET (1,000 UNITS) PO (09:29)
[2024-04-25] MEDS: Polyethylene Glycol 3350 17 GM PACKET PO (09:32)
[2024-04-25 10:00] VITALS: BMI 24.5
[2024-04-25] MEDS: Menthol/Lanolin/Calamine/Znox 113 GM Tube 1 APPLIC TOPICAL ×2 (10:23→21:50)
[2024-04-25 11:13] LABS: Bedside Glucose 218 mg/dL (74-106)
[2024-04-25 12:26] VITALS: BP 116/62; PULSE 62
[2024-04-25 16:00] VITALS: BP 118/48; PULSE 65; RESP 18; TEMP 36.6; O2SAT 95
[2024-04-25 16:39] LABS: Bedside Glucose 136 mg/dL (74-106)
[2024-04-25 17:23] VITALS: BP 123/57; PULSE 58
[2024-04-25 18:48] VITALS: RESP 16
[2024-04-25 21:35] LABS: Bedside Glucose 194 mg/dL (74-106)
[2024-04-25 21:49] VITALS: BP 133/69; PULSE 60
[2024-04-25] MEDS: Tamsulosin HCl 0.4 MG Capsule 0.8 MG PO (21:50)
[2024-04-25] MEDS: Insulin Glargine-YFGN 100 UNIT/ML Pen 8 UNIT SC (21:50)
[2024-04-25] MEDS: Pravastatin 40 MG Tablet PO (21:51)
[2024-04-25] MEDS: Gabapentin 400 MG Capsule PO (21:51)
[2024-04-25] MEDS: Latanoprost 0.005% 1 Bottle 1 DRP OPHTHALMIC (21:51)
[2024-04-25] MEDS: amLODIPine 10 MG Tablet PO (21:51)
[2024-04-25] MEDS: Acetaminophen 500 MG Tablet 1000 MG PO (22:02)
[2024-04-26 06:09] LABS: Hematocrit 24.9 % (40-54); Hemoglobin 7.4 g/dL (13.0-16.5)
[2024-04-26 06:12] LABS: Bedside Glucose 156 mg/dL (74-106)
[2024-04-26 06:14] VITALS: BP 131/62; PULSE 62
[2024-04-26] MEDS: hydrALAZINE 50 MG Tablet PO ×4 (06:14→21:48)
[2024-04-26] MEDS: Furosemide 40 MG Tablet PO ×2 (07:48→17:45)
[2024-04-26] MEDS: metFORMIN (XR) 500 MG Tablet PO (07:48)
[2024-04-26] MEDS: Folic Acid 1 MG Tablet PO (07:49)
[2024-04-26] MEDS: Ferrous Sulfate 325 MG Tablet PO ×2 (07:49→17:46)
[2024-04-26] MEDS: Cyanocobalamin 500 MCG Tablet 1000 MCG PO (08:43)
[2024-04-26] MEDS: Magnesium Chloride 64 MG Delay Rel.Tablet PO ×2 (08:44→21:49)
[2024-04-26] MEDS: Amiodarone 200 MG Tablet PO (08:44)
[2024-04-26] MEDS: guaiFENesin/D-Methorphan TAB.SR.12H 2 TABLET PO ×2 (08:44→21:49)
[2024-04-26] MEDS: Senna/Docusate Sodium 1 Tablet PO ×2 (08:44→21:49)
[2024-04-26] MEDS: Cholecalciferol (VIT D3) 25 MCG TABLET (1,000 UNITS) PO (08:44)
[2024-04-26] MEDS: LINAGLIPTIN 5 MG TABLET PO (08:44)
[2024-04-26] MEDS: Potassium Chloride Oral Tablet 20 MEQ PO (08:44)
[2024-04-26] MEDS: Polyethylene Glycol 3350 17 GM PACKET PO (08:45)
[2024-04-26] MEDS: Pantoprazole Sodium 40 MG Tablet PO (08:45)
[2024-04-26] MEDS: Menthol/Lanolin/Calamine/Znox 113 GM Tube 1 APPLIC TOPICAL ×2 (08:50→21:49)
[2024-04-26 10:00] VITALS: BMI 24.5
[2024-04-26 11:07] LABS: Bedside Glucose 231 mg/dL (74-106)
[2024-04-26 11:49] VITALS: PULSE 55; RESP 16; O2SAT 92
[2024-04-26 12:29] VITALS: BP 115/59; PULSE 54
[2024-04-26 15:14] VITALS: BP 114/53; PULSE 55; RESP 16; TEMP 36.6; O2SAT 92
--- NOTE | 2024-04-26 15:26 | PCM.PN.DRR ---
Documented by User: Jesica Avila 04/26/24 16:37 TCU RX Drug Regimen Review Subjective/Objective Subjective/Objective: Subjective: TCU Admission. 89 YOM presented to the ER with SOB. Hospitalized for acute respiratory failure with hypoxia 2/2 acute HFrEF, pneumonia ruled out, complicated by UGIB, bradycardia requiring permanent pacemaker placement. Admitted to TCU with debility for strengthening and rehabilitation. Objective: Allergies Milk Containing Products (Dairy) (Milk Containing Products) Adverse Reaction (Verified 04/13/24 17:29) NEEDS FOLLOW-UP quinapril (From Accupril) Adverse Reaction (Verified 04/13/24 17:29) Other Current Medications Generic Name Dose Route Start Last Admin Trade Name Freq PRN Reason Stop Dose Admin Acetaminophen 1,000 mg 04/23/24 20:55 04/25/24 22:02 Acetaminophen 500 Mg Tablet PO 1,000 mg Q6H PRN PRN Administration Pain Score 1-10 Albuterol/Ipratropium 3 ml 04/23/24 16:34 Ipratropium/Albuterol Sulfate 3 Ml Ampul.Neb INHALATION Q6H.RT PRN Shortness Of Breath Amiodarone HCl 200 mg 04/24/24 10:00 04/26/24 08:44 Amiodarone 200 Mg Tablet PO 200 mg DAILY IRAIS Administration Amlodipine Besylate 10 mg 04/23/24 22:00 04/25/24 21:51 Amlodipine 10 Mg Tablet PO 10 mg HS IRAIS Administration Protocol Calamine/Phenol 1 applic 04/23/24 22:00 04/26/24 08:50 Menthol/Lanolin/Calamine/Znox 113 Gm Tube TOPICAL 1 applic BID IRAIS Administration Protocol Cholecalciferol 25 mcg 04/24/24 10:00 04/26/24 08:44 Cholecalciferol (Vit D3) 25 Mcg Tablet (1,000 Units) PO 25 mcg DAILY IRAIS Administration Cyanocobalamin 1,000 mcg 04/24/24 10:00 04/26/24 08:43 Cyanocobalamin 500 Mcg Tablet PO 1,000 mcg DAILY IRAIS Administration Ferrous Sulfate 325 mg 04/23/24 17:00 04/26/24 07:49 Ferrous Sulfate 325 Mg Tablet PO 325 mg BIDCM IRAIS Administration Folic Acid 1 mg 04/24/24 08:00 04/26/24 07:49 Folic Acid 1 Mg Tablet PO 1 mg BREAKFAST IRAIS Administration Furosemide 40 mg 04/23/24 17:00 04/26/24 07:48 [facility] Protocol Gabapentin 400 mg 04/23/24 22:00 04/25/24 21:51 Gabapentin 400 Mg Capsule PO 400 mg QHS [facility] Administration Guaifenesin 2 tablet 04/23/24 22:00 04/26/24 08:44 Guaifenesin/D-Methorphan Tab.Sr.12h PO 2 tablet BID [facility] Administration Hydralazine HCl 50 mg 04/23/24 17:00 04/26/24 12:29 Hydralazine 50 Mg Tablet PO 50 mg 4X/DAY IRAIS Administration Protocol Insulin Glargine 8 unit 04/23/24 22:00 04/25/24 21:50 Insulin Glargine-Yfgn 100 Unit/Ml Pen SC 8 unit QHS [facility] Administration Latanoprost 1 drp 04/23/24 22:00 04/25/24 21:51 Latanoprost 0.005% 1 Bottle OPHTHALMIC 1 drp QHS [facility] Administration Linagliptin 5 mg 04/24/24 10:00 04/26/24 08:44 Linagliptin 5 Mg Tablet PO 5 mg DAILY IRAIS Administration Magnesium Chloride 64 mg 04/23/24 22:00 04/26/24 08:44 Magnesium Chloride 64 Mg Delay Rel.Tablet PO 64 mg BID IRAIS Administration Magnesium Citrate 300 ml 04/23/24 20:54 Magnesium Citrate 300 Ml PO DAILY PRN Constipation Metformin HCl 500 mg 04/24/24 08:00 04/26/24 07:48 Metformin (Xr) 500 Mg Tablet PO [facility] Administration Nystatin 1 applic 04/26/24 22:00 Nystatin Powder 15gm Bottle TOPICAL BID [facility] Protocol Pantoprazole Sodium 40 mg 04/24/24 10:00 04/26/24 08:45 Pantoprazole Sodium 40 Mg Tablet PO 40 mg DAILY IRAIS Administration Polyethylene Glycol 17 gm 04/24/24 17:35 04/26/24 08:45 Polyethylene Glycol 3350 17 Gm Packet PO 17 gm DAILY [facility] Administration Potassium Chloride 20 meq 04/24/24 10:00 04/26/24 08:44 Potassium Chloride Oral Tablet 20 Meq PO 20 meq DAILY IRAIS Administration Pravastatin Sodium 40 mg 04/23/24 22:00 04/25/24 21:51 Pravastatin 40 Mg Tablet PO 40 mg QHS [facility] Administration Probenecid 500 mg 04/24/24 10:00 04/26/24 08:45 Probenecid 500 Mg Tablet PO 500 mg DAILY [facility]IS Administration Senna/Docusate Sodium 1 tablet 04/23/24 22:00 04/26/24 08:44 Senna/Docusate Sodium 1 Tablet PO 1 tablet BID IRAIS Administration Sodium Chloride 10 - 40 ml 04/23/24 16:51 0.9% Saline Lock 10 Ml Syringe IV UD PRN SALINE FLUSH Tamsulosin HCl 0.8 mg 04/23/24 22:00 04/25/24 21:50 Tamsulosin Hcl 0.4 Mg Capsule PO 0.8 mg QHS IRAIS Administration Tuberculin PPD 0.1 ml 05/01/24 10:00 Tuberculin,Purif.Prot.Deriv. 50 Tu/Ml Vial ID 05/01/24 10:01 X1 ONE Problem List Iron deficiency anemia (Acute) BPH (benign prostatic hyperplasia) (Acute) Essential (primary) hypertension (Acute) Type 2 diabetes mellitus with hyperglycemia (Acute) Gout (Acute) Hyperlipidemia (Acute) Bradycardia (Acute) Acute blood loss anemia (Acute) Upper gastrointestinal bleed (Acute) Angiodysplasia of stomach (Acute) Gastric ulcer (Acute) Pneumonia (Acute) Acute HFrEF (heart failure with reduced ejection fraction) (Acute) Acute respiratory failure with hypoxia (Acute) Debility (Acute) Presence of cardiac pacemaker (Acute) Atrial fibrillation with slow ventricular response (Acute) Vital Signs Temp Pulse Resp BP Pulse Ox O2 Del Method 97.9 F 55 L 16 114/53 L 92 Room Air 04/26/24 15:14 04/26/24 15:14 04/26/24 15:14 04/26/24 15:14 04/26/24 15:14 04/26/24 15:14 Oxygen Delivery Method Room Air Weight: 84.005 kg Body Mass Index (BMI) 24.5 Sodium 145 mmol/L (136-145) 04/24/24 05:00 Potassium 4.1 mmol/L (3.5-5.1) 04/24/24 05:00 Chloride 114 mmol/L (98-107) H 04/24/24 05:00 Carbon Dioxide 29.0 mmol/L (21.0-32.0) 04/24/24 05:00 Anion Gap 2 (5-15) L 04/24/24 05:00 BUN 36 mg/dL (7-18) H 04/24/24 05:00 Creatinine 1.44 mg/dL (0.70-1.30) H 04/24/24 05:00 Est GFR (MDRD) Af Amer 59 mL/min (>60) L 04/24/24 05:00 Est GFR (MDRD) Non-Af 49 mL/min (>60) L 04/24/24 05:00 BUN/Creatinine Ratio 25.0 RATIO (10-20) H 04/24/24 05:00 Glucose 135 mg/dL (74-106) H 04/24/24 05:00 Assessment/Plan: 1. Pain: acetaminophen 1000mg PO Q6H PRN pain 1-10. Resident has had 1 dose so far for pain score of 5 in the head. Please continue to monitor for increased pain and PRN usage. 2. Bowel: senna/docusate 1T PO BID, Miralax 17gm PO daily and magnesium citrate 300mL PO daily PRN constipation. No doses of magnesium citrate have been given. Please consider increasing senna/docusate to 2 tablets as the last documented bowl movement was 6/3. Thanks. 3. DVT prophylaxis on hold due to GI bleed. 4. Atrial fibrillation/hypertension/acute HFrEF (EF25%): amiodarone 200mg PO daily, amlodipine 10mg PO HS, hydralazine 50mg PO 4x/day and furosemide 40mg PO BIDCM. Anticoagulation on hold 2/2 falls. Please continue to monitor BP (last 114/53), HR (last 55), sodium (last 145mmo/L), potassium (last 4.1mmol/L), swelling, renal function (last SCr 1.44mg/dL), S/S of stroke and headache. 5. Iron deficiency anemia: ferrous sulfate 325mg PO BIDCM. Please continue to monitor hemoglobin (last 7.4g/dL), constipation, dark stools and iron studies (last 04/14/24). 6. Diabetes mellitus II: metformin XR 500mg PO DAILYCM, linagliptin 5mg PO daily (TI for Januvia) and insulin glargine 8units SC QHS. Please continue to monitor hemoglobin A1c (last 5.5% 04/16/24), glucose (last 231mg/dL, 135mg/dL), GFR (last 49mL/min), diarrhea, S/S of hypoglycemia. Please monitor for S/S of heart failure exacerbation with linagliptin use. 7. Gastric ulcer: pantoprazole 40mg PO daily. Please continue to monitor for S/S of bleeding and diarrhea (BEERs medication). 8. Hyperlipidemia: pravastatin 40mg PO QHS. Please continue to monitor lipid panel (last 04/15/24), LFTs (last 04/20/24) and muscle pain. 9. Gout: probenecid 500mg PO daily. Please continue to monitor for S/S of gout and renal function (BEERs medication due to loss of efficacy for CrCl <30mL/min, current CrCl is 39mL/min). 10. BPH: tamsulosin 0.8mg PO QHS. Please continue to monitor for S/S of BPH and BP (last 114/53). 11. Cough: Mucinex DM 2T PO BID. Please consider adding a stop date if cough is temporary. Thanks. Please continue to monitor for cough. 12. Hypokalemia: potassium chloride 20mEq PO DAILY. Please continue to monitor potassium. 13. Shortness of breath: Duoneb 3mL PO Q6H.RT PRN shortness of breath. No PRN doses so far. Please continue to monitor for shortness of breath and PRN usage. 14. Glaucoma: latanoprost 0.005% 1gtt OU QHS. Please continue to monitor for S/S of glaucoma and eye irritation. 15. Hypomagnesemia: magnesium chloride 64mg PO BID. Please continue to monitor magnesium level (last 2.2mg/dL). 16. Folate deficiency: folic acid 1mg PO daily. Please continue to monitor. 17. Vitamin B12 and D deficiencies: cyanocobalamin 1000mcg PO daily and cholecalciferol 25mcg PO daily. Please consider stopping cyanocobalamin or decreasing to dose to 500mcg as the last level was supratherapeutic on 04/14/24. Thanks. Please consider ordering a vitamin D level as there is no level in the chart. Thanks. 18. Skin integrity: calmoseptine topical BID and nystatin topical BID. Please continue to monitor. Assessment/Plan for indications treated with psychotropic medications: 1. Diabetic polyneuropathy: gabapentin 400mg PO QHS. GDR not appropriate as this medication is being used for neuropathy. Dose appropriate for renal function (CrCl 39mL/min) at this time. Please continue to monitor for falls/fractures (BEERs medication), confusion and renal function. Medical chart and medication regimen reviewed. The following medication irregularities or issues were identified: 1. Senna/docusate 1T PO BID. Please consider increasing senna/docusate to 2 tablets as the last documented bowl movement was 04/20. Thanks. 2. Mucinex DM 2T PO BID. Please consider adding a stop date if cough is temporary. Thanks. 3. Cyanocobalamin 1000mcg PO daily. Please consider stopping cyanocobalamin or decreasing to dose to 500mcg as the last level was supratherapeutic on 04/14/24. Thanks. 4. Cholecalciferol 25mcg PO daily. Please consider ordering a vitamin D level as there is no level in the chart. Thanks. Date Date of Note:: 04/26/24 Documented by User: Dr. Dave Dupont MD 04/27/24 07:26 TCU RX Drug Regimen Review Provider Comments Provider responsibility Provider Comments to Recommendations by Pharmacy: Agree
[2024-04-26 16:38] LABS: Bedside Glucose 148 mg/dL (74-106)
[2024-04-26 17:45] VITALS: BP 125/62; PULSE 55
[2024-04-26 21:47] LABS: Bedside Glucose 204 mg/dL (74-106)
[2024-04-26 21:48] VITALS: BP 137/73; PULSE 83
[2024-04-26] MEDS: amLODIPine 10 MG Tablet PO (21:49)
[2024-04-26] MEDS: Pravastatin 40 MG Tablet PO (21:49)
[2024-04-26] MEDS: Tamsulosin HCl 0.4 MG Capsule 0.8 MG PO (21:49)
[2024-04-26] MEDS: Nystatin Powder 15gm Bottle 1 APPLIC TOPICAL (21:49)
[2024-04-26] MEDS: Insulin Glargine-YFGN 100 UNIT/ML Pen 8 UNIT SC (21:50)
[2024-04-26] MEDS: Latanoprost 0.005% 1 Bottle 1 DRP OPHTHALMIC (21:50)
[2024-04-26] MEDS: Gabapentin 400 MG Capsule PO (21:52)
[2024-04-27 05:39] LABS: Hematocrit 26.6 % (40-54); Hemoglobin 7.8 g/dL (13.0-16.5)
[2024-04-27 05:49] VITALS: BP 124/63; PULSE 56
[2024-04-27] MEDS: hydrALAZINE 50 MG Tablet PO ×4 (05:49→21:55)
[2024-04-27 06:09] LABS: Bedside Glucose 135 mg/dL (74-106)
[2024-04-27 09:14] VITALS: BP 117/54; PULSE 64; RESP 18; TEMP 36.8; O2SAT 95
[2024-04-27] MEDS: Ferrous Sulfate 325 MG Tablet PO ×2 (09:16→18:22)
[2024-04-27] MEDS: Magnesium Chloride 64 MG Delay Rel.Tablet PO ×2 (09:17→21:55)
[2024-04-27] MEDS: Pantoprazole Sodium 40 MG Tablet PO (09:17)
[2024-04-27] MEDS: Polyethylene Glycol 3350 17 GM PACKET PO (09:17)
[2024-04-27] MEDS: metFORMIN (XR) 500 MG Tablet PO (09:17)
[2024-04-27] MEDS: Amiodarone 200 MG Tablet PO (09:17)
[2024-04-27] MEDS: Furosemide 40 MG Tablet PO ×2 (09:17→18:22)
[2024-04-27] MEDS: Potassium Chloride Oral Tablet 20 MEQ PO (09:17)
[2024-04-27] MEDS: Folic Acid 1 MG Tablet PO (09:17)
[2024-04-27] MEDS: Senna/Docusate Sodium 1 Tablet 2 TABLET PO ×2 (09:18→21:54)
[2024-04-27] MEDS: Cyanocobalamin 500 MCG Tablet PO (09:18)
[2024-04-27] MEDS: LINAGLIPTIN 5 MG TABLET PO (09:18)
[2024-04-27] MEDS: Cholecalciferol (VIT D3) 25 MCG TABLET (1,000 UNITS) PO (09:18)
[2024-04-27] MEDS: Menthol/Lanolin/Calamine/Znox 113 GM Tube 1 APPLIC TOPICAL ×2 (09:19→21:56)
[2024-04-27] MEDS: Nystatin Powder 15gm Bottle 1 APPLIC TOPICAL ×2 (09:19→21:56)
[2024-04-27 09:34] VITALS: BMI 25.0
[2024-04-27 10:00] VITALS: RESP 16; O2SAT 95
[2024-04-27 10:23] VITALS: BMI 25.2
[2024-04-27 11:40] VITALS: BP 119/63; PULSE 72
[2024-04-27] MEDS: Magnesium Citrate 300 ML PO (11:50)
[2024-04-27 11:54] LABS: Bedside Glucose 155 mg/dL (74-106)
--- NOTE | 2024-04-27 16:28 | NURSING ---
dr erickson updated on doppler LUE, new order to apply warm compresses Qshift
[2024-04-27 16:35] LABS: Bedside Glucose 158 mg/dL (74-106)
--- NOTE | 2024-04-27 17:05 | NURSING ---
warm compress applied to LT arm per order.
--- NOTE | 2024-04-27 17:07 | NURSING ---
SSE ordered d/t pt feeling like he needs to go more, went in to administer SSE but pt wanted to go to BR, pt had LG liquid dark stool. states he feels better wants to hold off on SSE at this time. will update next shift
[2024-04-27 18:22] VITALS: BP 121/54; PULSE 97
[2024-04-27 21:41] LABS: Bedside Glucose 162 mg/dL (74-106)
[2024-04-27] MEDS: Gabapentin 400 MG Capsule PO (21:54)
[2024-04-27] MEDS: Tamsulosin HCl 0.4 MG Capsule 0.8 MG PO (21:54)
[2024-04-27 21:55] VITALS: BP 133/67; PULSE 89
[2024-04-27] MEDS: amLODIPine 10 MG Tablet PO (21:55)
[2024-04-27] MEDS: Latanoprost 0.005% 1 Bottle 1 DRP OPHTHALMIC (21:55)
[2024-04-27] MEDS: Pravastatin 40 MG Tablet PO (21:55)
[2024-04-27] MEDS: Insulin Glargine-YFGN 100 UNIT/ML Pen 8 UNIT SC (21:56)
[2024-04-28 05:45] VITALS: BP 118/54; PULSE 63
[2024-04-28] MEDS: hydrALAZINE 50 MG Tablet PO ×4 (05:45→21:46)
[2024-04-28 06:38] LABS: Bedside Glucose 108 mg/dL (74-106)
[2024-04-28 08:13] LABS: Vitamin D,25 Hydroxy 66.9 ng/mL
[2024-04-28] MEDS: Senna/Docusate Sodium 1 Tablet 2 TABLET PO ×2 (08:16→21:45)
[2024-04-28] MEDS: Pantoprazole Sodium 40 MG Tablet PO (08:16)
[2024-04-28] MEDS: Furosemide 40 MG Tablet PO ×2 (08:17→16:57)
[2024-04-28] MEDS: metFORMIN (XR) 500 MG Tablet PO (08:17)
[2024-04-28] MEDS: LINAGLIPTIN 5 MG TABLET PO (08:17)
[2024-04-28] MEDS: Folic Acid 1 MG Tablet PO (08:17)
[2024-04-28] MEDS: Ferrous Sulfate 325 MG Tablet PO ×2 (08:17→16:57)
[2024-04-28] MEDS: Potassium Chloride Oral Tablet 20 MEQ PO (08:17)
[2024-04-28] MEDS: Cyanocobalamin 500 MCG Tablet PO ×2 (08:17)
[2024-04-28] MEDS: Cholecalciferol (VIT D3) 25 MCG TABLET (1,000 UNITS) PO (08:18)
[2024-04-28] MEDS: Amiodarone 200 MG Tablet PO (08:18)
[2024-04-28] MEDS: Polyethylene Glycol 3350 17 GM PACKET PO (08:18)
[2024-04-28] MEDS: Magnesium Chloride 64 MG Delay Rel.Tablet PO ×2 (08:22→21:46)
[2024-04-28] MEDS: Nystatin Powder 15gm Bottle 1 APPLIC TOPICAL ×2 (08:30→21:47)
[2024-04-28] MEDS: Menthol/Lanolin/Calamine/Znox 113 GM Tube 1 APPLIC TOPICAL ×2 (08:32→21:47)
[2024-04-28 10:00] VITALS: BMI 25.1
[2024-04-28 12:18] VITALS: BP 129/59; PULSE 55
--- NOTE | 2024-04-28 12:35 | NURSING ---
Patient, family made aware of another patient testing positive for Covid today.
[2024-04-28 12:59] LABS: Bedside Glucose 157 mg/dL (74-106)
[2024-04-28 14:10] VITALS: BP 110/45; PULSE 55; RESP 16; TEMP 36.6; O2SAT 92
[2024-04-28] MEDS: COVID VAC 23-24(12UP)(ANDU)/PF 50 MCG/0.5 ML SYRINGE IM (15:19)
[2024-04-28 16:57] VITALS: BP 118/63; PULSE 62
[2024-04-28 17:33] LABS: Bedside Glucose 127 mg/dL (74-106)
[2024-04-28 18:38] VITALS: PULSE 62; RESP 16; O2SAT 96
[2024-04-28] MEDS: amLODIPine 10 MG Tablet PO (21:44)
[2024-04-28] MEDS: Gabapentin 400 MG Capsule PO (21:44)
[2024-04-28] MEDS: Acetaminophen 500 MG Tablet 1000 MG PO (21:45)
[2024-04-28] MEDS: Pravastatin 40 MG Tablet PO (21:45)
[2024-04-28] MEDS: Tamsulosin HCl 0.4 MG Capsule 0.8 MG PO (21:45)
[2024-04-28 21:46] VITALS: BP 119/67; PULSE 84
[2024-04-28 21:48] LABS: Bedside Glucose 188 mg/dL (74-106)
[2024-04-28] MEDS: Insulin Glargine-YFGN 100 UNIT/ML Pen 8 UNIT SC (21:52)
[2024-04-28] MEDS: Latanoprost 0.005% 1 Bottle 1 DRP OPHTHALMIC (21:53)
[2024-04-29 05:39] LABS: Hematocrit 26.2 % (40-54); Hemoglobin 7.8 g/dL (13.0-16.5)
[2024-04-29 06:14] LABS: Bedside Glucose 96 mg/dL (74-106)
[2024-04-29] MEDS: Acetaminophen 500 MG Tablet 1000 MG PO ×2 (07:00→16:48)
[2024-04-29 07:01] VITALS: BP 118/66; PULSE 65
[2024-04-29] MEDS: hydrALAZINE 50 MG Tablet PO ×4 (07:01→22:01)
[2024-04-29] MEDS: metFORMIN (XR) 500 MG Tablet PO (08:50)
[2024-04-29] MEDS: Ferrous Sulfate 325 MG Tablet PO ×2 (08:50→16:49)
[2024-04-29] MEDS: Folic Acid 1 MG Tablet PO (08:50)
[2024-04-29] MEDS: Polyethylene Glycol 3350 17 GM PACKET PO (08:51)
[2024-04-29] MEDS: Amiodarone 200 MG Tablet PO (08:51)
[2024-04-29] MEDS: Furosemide 40 MG Tablet PO ×2 (08:51→16:49)
[2024-04-29] MEDS: Magnesium Chloride 64 MG Delay Rel.Tablet PO ×2 (08:51→22:01)
[2024-04-29] MEDS: Potassium Chloride Oral Tablet 20 MEQ PO (08:51)
[2024-04-29] MEDS: LINAGLIPTIN 5 MG TABLET PO (08:52)
[2024-04-29] MEDS: Pantoprazole Sodium 40 MG Tablet PO (08:52)
[2024-04-29] MEDS: Cholecalciferol (VIT D3) 25 MCG TABLET (1,000 UNITS) PO (08:52)
[2024-04-29] MEDS: Senna/Docusate Sodium 1 Tablet 2 TABLET PO ×2 (08:52→22:06)
[2024-04-29] MEDS: Nystatin Powder 15gm Bottle 1 APPLIC TOPICAL ×2 (08:59→22:01)
[2024-04-29] MEDS: Menthol/Lanolin/Calamine/Znox 113 GM Tube 1 APPLIC TOPICAL ×2 (08:59→22:07)
[2024-04-29 09:35] VITALS: BMI 24.7
--- NOTE | 2024-04-29 10:26 | CASEMGMT ---
Social Work- Care Planning IDT met with patient, daughter, Kaylee, and son, Vin at bedside for care planning. Discussed patient progress with therapy (PT/OT), dietary, and activities. Patient is independent with therapy. Patient is on regular diet, but no gravy with ensures for protein. Patient requires additional support for ambulation with walker. Patient is unable to put a lot of weight in left arm due to cardiac implant-pacemaker. Patient is ambulating 150ft with walker contact assist. Patient has gone up 3 steps at this time with assistance. Patient is SBA bed mobility. OT will meet with patient on 04/30 for showering. Patient is min A for upper body/lower body dressing and bathing. SW educated patient and family about [facility] Medicare Insurance coverage; next review date 05/05; estimated discharge date 05/08. SW discussed home health care services is preferred for post acute care. Patient previously had [facility]. Family would like [facility] health care as preferred agency for home health care. SW will continue to support patient for discharge planning. ALYSSIA Roy
[2024-04-29 12:17] VITALS: BP 112/56; PULSE 66
--- NOTE | 2024-04-29 14:54 | NURSING ---
Warm compress applied to left arm this shift per order.
--- NOTE | 2024-04-29 15:24 | NURSING ---
Called [facility] about Latitude communicator in room and they report he can hook this up next to bed at home but aguilar not need plugged in on TCU. Appt set up for 05/04/24 at 1000 for pacer f/u.
[2024-04-29 16:00] VITALS: BP 117/58; PULSE 53; RESP 16; TEMP 36.7; O2SAT 95
[2024-04-29 16:27] LABS: Bedside Glucose 152 mg/dL (74-106)
[2024-04-29 16:49] VITALS: BP 134/57; PULSE 52
[2024-04-29] MEDS: Insulin Glargine-YFGN 100 UNIT/ML Pen 8 UNIT SC (21:59)
[2024-04-29] MEDS: Gabapentin 400 MG Capsule PO (21:59)
[2024-04-29] MEDS: Tamsulosin HCl 0.4 MG Capsule 0.8 MG PO (22:00)
[2024-04-29 22:01] VITALS: BP 121/58; PULSE 60
[2024-04-29] MEDS: amLODIPine 10 MG Tablet PO (22:01)
[2024-04-29] MEDS: Latanoprost 0.005% 1 Bottle 1 DRP OPHTHALMIC (22:06)
[2024-04-29] MEDS: Pravastatin 40 MG Tablet PO (22:06)
[2024-04-29 22:10] VITALS: BP 121/58; PULSE 60
[2024-04-30] VITALS (7 sets, daily range): BP systolic 110–125; BP diastolic 53–63; PULSE 61–66; RESP 18–20; TEMP 36.8; O2SAT 91–96
[2024-04-30] MEDS: hydrALAZINE 50 MG Tablet PO ×4 (05:29→21:30)
[2024-04-30 06:36] LABS: Bedside Glucose 104 mg/dL (74-106)
[2024-04-30] MEDS: Cholecalciferol (VIT D3) 25 MCG TABLET (1,000 UNITS) PO (08:42)
[2024-04-30] MEDS: LINAGLIPTIN 5 MG TABLET PO (08:42)
[2024-04-30] MEDS: Potassium Chloride Oral Tablet 20 MEQ PO (08:42)
[2024-04-30] MEDS: Ferrous Sulfate 325 MG Tablet PO ×2 (08:42→17:07)
[2024-04-30] MEDS: Menthol/Lanolin/Calamine/Znox 113 GM Tube 1 APPLIC TOPICAL ×2 (08:42→21:30)
[2024-04-30] MEDS: Pantoprazole Sodium 40 MG Tablet PO (08:42)
[2024-04-30] MEDS: metFORMIN (XR) 500 MG Tablet PO (08:42)
[2024-04-30] MEDS: Folic Acid 1 MG Tablet PO (08:42)
[2024-04-30] MEDS: Amiodarone 200 MG Tablet PO (08:43)
[2024-04-30] MEDS: Furosemide 40 MG Tablet PO ×2 (08:43→17:07)
[2024-04-30] MEDS: Polyethylene Glycol 3350 17 GM PACKET PO (08:43)
[2024-04-30] MEDS: Magnesium Chloride 64 MG Delay Rel.Tablet PO ×2 (08:43→21:29)
[2024-04-30] MEDS: Senna/Docusate Sodium 1 Tablet 2 TABLET PO (08:44)
[2024-04-30] MEDS: Nystatin Powder 15gm Bottle 1 APPLIC TOPICAL ×2 (08:46→21:31)
[2024-04-30] MEDS: Cyanocobalamin 500 MCG Tablet PO (08:50)
--- NOTE | 2024-04-30 11:37 | CASEMGMT ---
Social Work SW met with patient at bedside to complete MDS. Patient BIM () and PhQ-2 () Patient informed SW that he felt down yesterday, 04/29/2024 due to pain. Patient informed SW that he had back pain which he has not experienced in a while. Patient informed SW that he felt better after taking time to rest after therapy. ALYSSIA Roy
[2024-04-30] MEDS: Pravastatin 40 MG Tablet PO (21:29)
[2024-04-30] MEDS: Tamsulosin HCl 0.4 MG Capsule 0.8 MG PO (21:29)
[2024-04-30] MEDS: amLODIPine 10 MG Tablet PO (21:29)
[2024-04-30 21:30] LABS: Bedside Glucose 171 mg/dL (74-106)
[2024-04-30] MEDS: Insulin Glargine-YFGN 100 UNIT/ML Pen 8 UNIT SC (21:30)
[2024-04-30] MEDS: Gabapentin 400 MG Capsule PO (21:33)
[2024-04-30] MEDS: Latanoprost 0.005% 1 Bottle 1 DRP OPHTHALMIC (21:38)
[2024-05-01 06:06] VITALS: BP 114/57; PULSE 53; RESP 18; TEMP 36.3; O2SAT 93
[2024-05-01 06:09] LABS: Absolute Neutrophil Count 5.8 X10^3/uL (2.0-7.7); Basophil# 0.02 X10^3/uL; Basophil% 0.3 % (0-1); Eosinophil# 0.06 X10^3/uL; Eosinophils% 0.8 % (0-5); Hematocrit 25.1 % (40-54); Hemoglobin 7.6 g/dL (13.0-16.5); Lymphocyte % 10.5 % (19-41); Mean Corp Hgb Conc 30.3 g/dL (32-36); Mean Corpuscular Hgb 28.5 pg (27.0-32.0); Mean Platelet Vol. 9.9 fl (6.2-12.0); Monocyte# 0.93 X10^3/uL; Monocyte% 12.2 % (0-10); NRBC Flagged by Analyzer 0 % (0-5); Neutrophil # 5.76 X10^3/uL (2.7-7.7); Neutrophil % 75.5 % (47-70); Platelet Count 244 K/mm3 (150-450); RBC Distribution Width CV 16.8 % (11.6-14.6); RBC Distribution Width SD 56.3 fl (35.1-43.9); Red Blood Count 2.67 M/mm3 (4.6-6.2); White Blood Count 7.6 K/mm3 (4.4-11.0)
[2024-05-01 06:23] VITALS: PULSE 63; RESP 18; O2SAT 91
[2024-05-01 06:31] LABS: Bedside Glucose 116 mg/dL (74-106)
--- NOTE | 2024-05-01 06:37 | NURSING ---
Decreased BP/HR, notified via backline, order to hold Hydralazine at this time.
[2024-05-01 06:49] LABS: Anion Gap 7 (5-15); BUN 21 mg/dL (7-18); BUN/Creat Ratio 14.9 RATIO (10-20); Calcium,Total 8.1 mg/dL (8.5-10.1); Chloride 101 mmol/L (98-107); Creatinine, Serum 1.41 mg/dL (0.70-1.30); EST Glomerular Filtration Rate 50 mL/min (>60); Est Glom Filt Rate - Afr Amer 61 mL/min (>60); Estimated Creatinine Clearance 40.14 ml/min; Glucose 125 mg/dL (74-106); Potassium 3.6 mmol/L (3.5-5.1); Sodium Level 134 mmol/L (136-145)
--- NOTE | 2024-05-01 08:17 | NURSING ---
Branch Operations Manager Note; MDS for 04/30/2024 Complete
[2024-05-01] MEDS: Polyethylene Glycol 3350 17 GM PACKET PO (09:39)
[2024-05-01] MEDS: Furosemide 40 MG Tablet PO ×2 (09:39→17:38)
[2024-05-01] MEDS: Cyanocobalamin 500 MCG Tablet PO (09:39)
[2024-05-01] MEDS: LINAGLIPTIN 5 MG TABLET PO (09:39)
[2024-05-01] MEDS: Senna/Docusate Sodium 1 Tablet 2 TABLET PO ×2 (09:39→22:02)
[2024-05-01] MEDS: Amiodarone 200 MG Tablet PO (09:39)
[2024-05-01] MEDS: Folic Acid 1 MG Tablet PO (09:40)
[2024-05-01] MEDS: Potassium Chloride Oral Tablet 20 MEQ PO (09:40)
[2024-05-01] MEDS: Ferrous Sulfate 325 MG Tablet PO ×2 (09:40→17:39)
[2024-05-01] MEDS: Pantoprazole Sodium 40 MG Tablet PO (09:40)
[2024-05-01] MEDS: metFORMIN (XR) 500 MG Tablet PO (09:40)
[2024-05-01] MEDS: Magnesium Chloride 64 MG Delay Rel.Tablet PO ×2 (09:40→22:01)
[2024-05-01] MEDS: Cholecalciferol (VIT D3) 25 MCG TABLET (1,000 UNITS) PO (09:40)
[2024-05-01] MEDS: Menthol/Lanolin/Calamine/Znox 113 GM Tube 1 APPLIC TOPICAL ×2 (09:41→22:03)
[2024-05-01] MEDS: Ensure Clear 120 ML Liquid PO (09:43)
[2024-05-01] MEDS: Acetaminophen 500 MG Tablet 1000 MG PO ×2 (09:50→22:02)
[2024-05-01] MEDS: Nystatin Powder 15gm Bottle 1 APPLIC TOPICAL ×2 (09:56→22:01)
[2024-05-01 10:00] VITALS: BMI 24.7
[2024-05-01 12:40] VITALS: BP 98/52; PULSE 54; RESP 16; TEMP 36.8; O2SAT 96
[2024-05-01 12:41] VITALS: BP 98/52; PULSE 54
[2024-05-01] MEDS: hydrALAZINE 50 MG Tablet PO ×3 (12:41→22:01)
[2024-05-01] MEDS: Tuberculin,Purif.prot.deriv. 50 TU/ML Vial 0.1 ML ID (12:44)
[2024-05-01 16:41] LABS: Bedside Glucose 116 mg/dL (74-106)
[2024-05-01 17:39] VITALS: BP 113/57; PULSE 60
[2024-05-01 22:01] VITALS: BP 122/61; PULSE 54
[2024-05-01] MEDS: amLODIPine 5 MG Tablet PO (22:01)
[2024-05-01] MEDS: Pravastatin 40 MG Tablet PO (22:01)
[2024-05-01] MEDS: Gabapentin 400 MG Capsule PO (22:01)
[2024-05-01] MEDS: Tamsulosin HCl 0.4 MG Capsule 0.8 MG PO (22:01)
[2024-05-01] MEDS: Latanoprost 0.005% 1 Bottle 1 DRP OPHTHALMIC (22:02)
[2024-05-01] MEDS: Insulin Glargine-YFGN 100 UNIT/ML Pen 8 UNIT SC (22:03)
[2024-05-01 22:28] LABS: Bedside Glucose 129 mg/dL (74-106)
[2024-05-02] MEDS: Acetaminophen 500 MG Tablet 1000 MG PO ×2 (05:52→22:48)
[2024-05-02 05:54] VITALS: BP 112/61; PULSE 54
[2024-05-02] MEDS: hydrALAZINE 50 MG Tablet PO ×4 (05:54→22:44)
[2024-05-02 06:24] LABS: Bedside Glucose 98 mg/dL (74-106)
[2024-05-02] MEDS: Ferrous Sulfate 325 MG Tablet PO ×2 (07:52→18:27)
[2024-05-02] MEDS: Furosemide 40 MG Tablet PO ×2 (07:53→18:27)
[2024-05-02] MEDS: Folic Acid 1 MG Tablet PO (07:53)
[2024-05-02] MEDS: metFORMIN (XR) 500 MG Tablet PO (07:53)
[2024-05-02] MEDS: Ensure Clear 120 ML Liquid PO (07:54)
[2024-05-02] MEDS: Potassium Chloride Oral Tablet 20 MEQ PO (07:54)
[2024-05-02] MEDS: Magnesium Chloride 64 MG Delay Rel.Tablet PO ×2 (07:54→22:43)
[2024-05-02] MEDS: Amiodarone 200 MG Tablet PO (07:54)
[2024-05-02] MEDS: Pantoprazole Sodium 40 MG Tablet PO (07:56)
[2024-05-02] MEDS: Senna/Docusate Sodium 1 Tablet 2 TABLET PO ×2 (07:56→22:43)
[2024-05-02] MEDS: Cyanocobalamin 500 MCG Tablet PO (07:57)
[2024-05-02] MEDS: LINAGLIPTIN 5 MG TABLET PO (07:57)
[2024-05-02] MEDS: Cholecalciferol (VIT D3) 25 MCG TABLET (1,000 UNITS) PO (07:58)
[2024-05-02] MEDS: Menthol/Lanolin/Calamine/Znox 113 GM Tube 1 APPLIC TOPICAL ×2 (08:01→22:48)
[2024-05-02] MEDS: Nystatin Powder 15gm Bottle 1 APPLIC TOPICAL ×2 (08:01→22:37)
--- NOTE | 2024-05-02 08:31 | NURSING ---
Patient transported to PCU for blood transfusion via w/c at this time.
[2024-05-02 10:00] VITALS: BMI 25.2
[2024-05-02 12:09] VITALS: BP 112/57; PULSE 50
[2024-05-02 16:00] VITALS: BP 122/62; PULSE 51; RESP 16; TEMP 36.6; O2SAT 92
--- NOTE | 2024-05-02 17:50 | NURSING ---
pt returned to floor via WC from blood tx
[2024-05-02 18:27] VITALS: BP 132/66; PULSE 59
[2024-05-02 21:52] LABS: Bedside Glucose 172 mg/dL (74-106)
[2024-05-02] MEDS: Insulin Glargine-YFGN 100 UNIT/ML Pen 8 UNIT SC (22:37)
[2024-05-02] MEDS: Latanoprost 0.005% 1 Bottle 1 DRP OPHTHALMIC (22:37)
[2024-05-02] MEDS: 0.9% Saline Lock 10 ML Syringe IV (22:37)
[2024-05-02] MEDS: Gabapentin 400 MG Capsule PO (22:37)
[2024-05-02] MEDS: amLODIPine 5 MG Tablet PO (22:43)
[2024-05-02] MEDS: Pravastatin 40 MG Tablet PO (22:43)
[2024-05-02 22:44] VITALS: BP 122/62; PULSE 51
[2024-05-02] MEDS: Tamsulosin HCl 0.4 MG Capsule 0.8 MG PO (22:44)
[2024-05-02 22:50] VITALS: PULSE 51; RESP 17; O2SAT 94
[2024-05-03] VITALS (8 sets, daily range): BP systolic 106–129; BP diastolic 51–70; PULSE 51–90; RESP 16–18; TEMP 36.9; O2SAT 95
[2024-05-03] MEDS: hydrALAZINE 50 MG Tablet PO ×4 (05:17→22:52)
[2024-05-03 06:25] LABS: Bedside Glucose 87 mg/dL (74-106)
[2024-05-03] MEDS: 0.9% Saline Lock 10 ML Syringe IV ×2 (08:25→22:57)
[2024-05-03] MEDS: Ensure Clear 120 ML Liquid PO (08:28)
[2024-05-03] MEDS: Polyethylene Glycol 3350 17 GM PACKET PO (08:29)
[2024-05-03] MEDS: Senna/Docusate Sodium 1 Tablet 2 TABLET PO ×2 (08:29→22:53)
[2024-05-03] MEDS: Cholecalciferol (VIT D3) 25 MCG TABLET (1,000 UNITS) PO (08:29)
[2024-05-03] MEDS: Cyanocobalamin 500 MCG Tablet PO (08:29)
[2024-05-03] MEDS: Ferrous Sulfate 325 MG Tablet PO ×2 (08:30→18:16)
[2024-05-03] MEDS: Potassium Chloride Oral Tablet 20 MEQ PO (08:30)
[2024-05-03] MEDS: Folic Acid 1 MG Tablet PO (08:30)
[2024-05-03] MEDS: Amiodarone 200 MG Tablet PO (08:30)
[2024-05-03] MEDS: metFORMIN (XR) 500 MG Tablet PO (08:30)
[2024-05-03] MEDS: Furosemide 40 MG Tablet PO ×2 (08:30→18:16)
[2024-05-03] MEDS: Pantoprazole Sodium 40 MG Tablet PO (08:30)
[2024-05-03] MEDS: LINAGLIPTIN 5 MG TABLET PO (08:30)
[2024-05-03] MEDS: Magnesium Chloride 64 MG Delay Rel.Tablet PO ×2 (08:30→22:51)
[2024-05-03] MEDS: Nystatin Powder 15gm Bottle 1 APPLIC TOPICAL ×2 (08:31→22:54)
[2024-05-03] MEDS: Menthol/Lanolin/Calamine/Znox 113 GM Tube 1 APPLIC TOPICAL ×2 (08:31→22:54)
[2024-05-03 16:36] LABS: Hematocrit 33.2 % (40-54); Hemoglobin 10.3 g/dL (13.0-16.5)
[2024-05-03 22:03] LABS: Bedside Glucose 176 mg/dL (74-106)
[2024-05-03] MEDS: Acetaminophen 500 MG Tablet 1000 MG PO (22:51)
[2024-05-03] MEDS: Gabapentin 400 MG Capsule PO (22:51)
[2024-05-03] MEDS: Insulin Glargine-YFGN 100 UNIT/ML Pen 8 UNIT SC (22:52)
[2024-05-03] MEDS: Tamsulosin HCl 0.4 MG Capsule 0.8 MG PO (22:53)
[2024-05-03] MEDS: amLODIPine 5 MG Tablet PO (22:53)
[2024-05-03] MEDS: Pravastatin 40 MG Tablet PO (22:53)
[2024-05-03] MEDS: Latanoprost 0.005% 1 Bottle 1 DRP OPHTHALMIC (22:54)
[2024-05-04] VITALS (8 sets, daily range): BP systolic 120–128; BP diastolic 55–69; PULSE 50–55; RESP 14; TEMP 36.2; O2SAT 95–97; BMI 24.7
[2024-05-04] MEDS: hydrALAZINE 50 MG Tablet PO ×4 (06:04→22:28)
[2024-05-04 06:35] LABS: Bedside Glucose 89 mg/dL (74-106)
[2024-05-04] MEDS: Cyanocobalamin 500 MCG Tablet PO (08:27)
[2024-05-04] MEDS: Cholecalciferol (VIT D3) 25 MCG TABLET (1,000 UNITS) PO (08:27)
[2024-05-04] MEDS: Pantoprazole Sodium 40 MG Tablet PO (08:27)
[2024-05-04] MEDS: Amiodarone 200 MG Tablet PO (08:27)
[2024-05-04] MEDS: Potassium Chloride Oral Tablet 20 MEQ PO (08:27)
[2024-05-04] MEDS: metFORMIN (XR) 500 MG Tablet PO (08:27)
[2024-05-04] MEDS: LINAGLIPTIN 5 MG TABLET PO (08:27)
[2024-05-04] MEDS: Ferrous Sulfate 325 MG Tablet PO ×2 (08:27→17:12)
[2024-05-04] MEDS: Magnesium Chloride 64 MG Delay Rel.Tablet PO ×2 (08:27→22:27)
[2024-05-04] MEDS: Folic Acid 1 MG Tablet PO (08:27)
[2024-05-04] MEDS: Furosemide 40 MG Tablet PO ×2 (08:27→17:13)
[2024-05-04] MEDS: Ensure Clear 120 ML Liquid PO ×3 (08:27→17:14)
[2024-05-04] MEDS: Nystatin Powder 15gm Bottle 1 APPLIC TOPICAL ×2 (08:28→22:32)
[2024-05-04] MEDS: Menthol/Lanolin/Calamine/Znox 113 GM Tube 1 APPLIC TOPICAL ×2 (08:28→22:32)
[2024-05-04] MEDS: 0.9% Saline Lock 10 ML Syringe IV (11:44)
--- NOTE | 2024-05-04 18:53 | NURSING ---
Pt had appt with [facility] for Pacemaker. Received written communication Let steri-strips fall off with showering and continue left arm restrictions until next follow up. F/U scheduled for 06/01/24 @4108.
[2024-05-04 21:39] LABS: Bedside Glucose 154 mg/dL (74-106)
[2024-05-04] MEDS: Pravastatin 40 MG Tablet PO (22:27)
[2024-05-04] MEDS: amLODIPine 5 MG Tablet PO (22:27)
[2024-05-04] MEDS: Latanoprost 0.005% 1 Bottle 1 DRP OPHTHALMIC (22:27)
[2024-05-04] MEDS: Gabapentin 400 MG Capsule PO (22:27)
[2024-05-04] MEDS: Insulin Glargine-YFGN 100 UNIT/ML Pen 8 UNIT SC (22:27)
[2024-05-04] MEDS: Tamsulosin HCl 0.4 MG Capsule 0.8 MG PO (22:28)
[2024-05-04] MEDS: Acetaminophen 500 MG Tablet 1000 MG PO (22:28)
[2024-05-05 06:04] VITALS: BP 110/60; PULSE 52
[2024-05-05] MEDS: hydrALAZINE 50 MG Tablet PO ×4 (06:04→23:02)
[2024-05-05 06:18] LABS: Bedside Glucose 87 mg/dL (74-106)
[2024-05-05] MEDS: Ensure Clear 120 ML Liquid PO ×3 (09:16→17:56)
[2024-05-05] MEDS: Ferrous Sulfate 325 MG Tablet PO ×2 (09:16→17:52)
[2024-05-05] MEDS: Furosemide 40 MG Tablet PO ×2 (09:17→17:52)
[2024-05-05] MEDS: Folic Acid 1 MG Tablet PO (09:17)
[2024-05-05] MEDS: metFORMIN (XR) 500 MG Tablet PO (09:17)
[2024-05-05] MEDS: Potassium Chloride Oral Tablet 20 MEQ PO (09:18)
[2024-05-05] MEDS: Amiodarone 200 MG Tablet PO (09:18)
[2024-05-05] MEDS: Senna/Docusate Sodium 1 Tablet 2 TABLET PO ×2 (09:19→23:05)
[2024-05-05] MEDS: Pantoprazole Sodium 40 MG Tablet PO (09:19)
[2024-05-05] MEDS: Magnesium Chloride 64 MG Delay Rel.Tablet PO ×2 (09:19→23:02)
[2024-05-05] MEDS: LINAGLIPTIN 5 MG TABLET PO (09:20)
[2024-05-05] MEDS: Cholecalciferol (VIT D3) 25 MCG TABLET (1,000 UNITS) PO (09:20)
[2024-05-05] MEDS: Cyanocobalamin 500 MCG Tablet PO (09:20)
[2024-05-05] MEDS: Nystatin Powder 15gm Bottle 1 APPLIC TOPICAL ×2 (09:30→23:07)
[2024-05-05 10:00] VITALS: BMI 24.7
[2024-05-05 10:52] VITALS: BP 118/56; PULSE 54; RESP 16; TEMP 36.2; O2SAT 93
[2024-05-05 12:15] VITALS: BP 140/65; PULSE 58
--- NOTE | 2024-05-05 14:40 | NURSING ---
Patient off unit at 1:20pm for appt with Dr. Villanueva, urology. Returned from appt at this time. New orders received for Proscar 5mg daily. Walden to be removed for voiding trial. If patient unable to void after 8 hours, has pain or PVP>500, to straight cath. Patient to continue flomax.
--- NOTE | 2024-05-05 15:12 | NURSING ---
Walden removed at this time. Patient tolerated well. Will begin voiding trials.
[2024-05-05 15:14] VITALS: PULSE 58; RESP 16
--- NOTE | 2024-05-05 15:57 | CASEMGMT ---
Addendum entered by Yesenia Rogel 05/05/24 16:47: Social Work Return call from pt dgt Kaylee Gutierrez. Update on NOMNC and dc provided and Kaylee is agreeable with planned discharge for Tuesday 05/08. Kaylee states family plans to stay overnight the first night to monitor pt and then will follow closely daily. Family training with therapy offered and set for 1:30 tomorrow. INVOICING SPECIALIST notified. Kaylee confirms plan for [facility]. Referral has been made. SW will await determination of acceptance. REBECCA Holbrook Original Note: Social Work Insurance issued a NOMNC today with last covered day 05/07 and dc 05/08. SW met with pt and informed of this and pt states he feels he can return home on 05/08 with his . Pt states will not be able to provide much assistance to pt. With Pt permission, phone call to dgt Kaylee and VM left requesting return call to discuss discharge. SW will await return call. Therapy is recommending home health PT/OT/ST/SN. Pt is agreeable and family had previously requested [facility]. Referral sent to [facility]. Pt uses a walker for ambulation and pt confirms that he has a walker at home. SW will inquire with family regarding setting up family training prior to dc home. SW to continue to follow for dc planning. Plan: DC home with and Home Health PT/OT/ST/SN REBECCA Gallardo
[2024-05-05 17:55] VITALS: BP 139/64; PULSE 65
--- NOTE | 2024-05-05 20:22 | DS.PCM_ITS ---
Providers Date of Admission: 04/23/24 Primary Care Physician: Dr. Cory Mckeon MD Reason For Visit: CHF EXACERBATION Diagnosis Discharge Diagnosis (1) Debility: Status: Acute Code(s): R53.81 - Other malaise (2) Acute respiratory failure with hypoxia: Status: Acute Code(s): J96.01 - Acute respiratory failure with hypoxia (3) Acute HFrEF (heart failure with reduced ejection fraction): Status: Acute Code(s): I50.21 - Acute systolic (congestive) heart failure (4) Pneumonia: Status: Acute Code(s): J18.9 - Pneumonia, unspecified organism (5) Gastric ulcer: Status: Acute Code(s): K25.9 - Gastric ulcer, unspecified as acute or chronic, without hemorrhage or perforation (6) Angiodysplasia of stomach: Status: Acute Code(s): K31.819 - Angiodysplasia of stomach and duodenum without bleeding (7) Upper gastrointestinal bleed: Status: Acute Code(s): K92.2 - Gastrointestinal hemorrhage, unspecified (8) Acute blood loss anemia: Status: Acute Code(s): D62 - Acute posthemorrhagic anemia (9) Atrial fibrillation with slow ventricular response: Status: Chronic Code(s): I48.91 - Unspecified atrial fibrillation (10) Bradycardia: Status: Acute Code(s): R00.1 - Bradycardia, unspecified (11) Presence of cardiac pacemaker: Status: Acute Code(s): Z95.0 - Presence of cardiac pacemaker (12) Hyperlipidemia: Status: Acute Code(s): E78.5 - Hyperlipidemia, unspecified (13) Gout: Status: Acute Code(s): M10.9 - Gout, unspecified (14) Type 2 diabetes mellitus with hyperglycemia: Status: Acute Code(s): E11.65 - Type 2 diabetes mellitus with hyperglycemia (15) Essential (primary) hypertension: Status: Acute Code(s): I10 - Essential (primary) hypertension (16) BPH (benign prostatic hyperplasia): Status: Acute Code(s): N40.0 - Benign prostatic hyperplasia without lower urinary tract symptoms (17) Iron deficiency anemia: Status: Acute Code(s): D50.9 - Iron deficiency anemia, unspecified Qualifiers: Iron deficiency anemia type: other iron deficiency Qualified Code(s): D 50.8 - Other iron deficiency anemias Plan 89 year old male with below past medical history hospitalized for acute respiratory failure with hypoxia 2/2 acute HFrEF, pneumonia ruled out, complicated by UGIB, bradycardia requiring permanent pacemaker placement, admitted to TCU with debility, here for rehabilitation, strengthening, prior to discharge home with . * Debility - PT/OT. * Pain - Tylenol 1000mg q6 prn pain (1-10). * Bowel - senna/colace 1 tablet bid, Magnesium citrate 300ml daily prn. * Adult immunization - Administer pneumonia vaccine, covid vaccine, flu vaccine as appropriate. * DVT prophylaxis - Hold, GI bleed. * Atrial fibrillation - Amiodarone 200mg daily, hold anticoagulation 2/2 falls. * Hypertension - Amlodipine 10mg daily, Hydralazine 50mg 4x/day. * Vitamin D deficiency - D3 25mcg daily. * Vitamin B12 deficiency - B12 1000mcg daily. * Iron deficiency anemia - Ferrous sulfate 325mg bidcm. * Folate deficiency - Folic acid 1mg daily. * Acute HFrEF (EF 25%), Hydralazine 50mg 4x/day, Furosemide 40mg bidcm. * Diabetic polyneuropathy - Gabapentin 400mg qhs. * Cough - Robitussin DM 2 tablets bid. * Diabetes Mellitus II - Metformin XR 500mg daily, Tradjenta 5mg daily, Glargine 8 units qhs. * Shortness of breath - Duoneb 3ml q6h. * Glaucoma - Latanoprost 1gtt ou qhs. * Hypomagnesemia - Magnesium chloride 64mg bid. * Skin irritation - Calmoseptine topical bid. * Gastric ulcer - Pantoprazole 40mg daily. * Hypokalemia - KCL 20meq daily. * Hyperlipidemia - Pravastatin 40mg qhs. * Gout - Probenecid 500mg daily. * BPH - Tamsulosin 0.8mg qhs. Medications at Discharge Home Medications pravastatin 40 mg tablet 40 mg PO QHS cholesterol 05/14/16 probenecid 500 mg tablet 500 mg PO DAILY gout 05/14/16 cholecalciferol (vitamin D3) 25 mcg (1,000 unit) tablet 1,000 unit PO DAILY vitamin 07/16/16 cyanocobalamin (vitamin B-12) 1,000 mcg tablet 1,000 mcg PO DAILY supplement 07/16/16 metformin 500 mg 24 hr tablet,extended release (gastric retention) 500 mg PO DAILY diabetes 07/16/16 sitagliptin phosphate 50 mg tablet 50 mg PO DAILY diabetes 06/25/19 docusate sodium 100 mg capsule (Colace) 100 mg PO BID PRN sool softener 09/11/19 ferrous sulfate 325 mg (65 mg iron) tablet (Feosol) 325 mg PO BID iron supplement 09/11/19 folic acid 400 mcg tablet 800 mcg PO DAILY vitamin 09/11/19 insulin glargine 100 unit/mL (3 mL) subcutaneous pen 8 unit subcut QHS diabetes 09/11/19 blood sugar diagnostic (True Metrix Glucose Test Strip) 03/18/24 gabapentin 400 mg capsule 400 mg PO QHS nerve pain 03/18/24 latanoprost 0.005 % eye drops 1 drp ophthalmic (eye) QHS eye health 03/18/24 pen needle, diabetic 31 gauge x 3/16 (Droplet Pen Needle) 03/18/24 potassium chloride 20 mEq tablet,extended release(part/cryst) 20 meq PO DAILY supplement 03/18/24 furosemide 40 mg tablet (Lasix) 40 mg PO BIDCM Edema #120 tabs 03/20/24 hydralazine 50 mg tablet 50 mg PO 4X/DAY BP 04/02/24 magnesium chloride 64 mg (magnesium chloride) tablet,delayed release (Mag 64) 64 mg PO BID Supplement #0 tabs 04/23/24 acetaminophen 500 mg tablet 1,000 mg (2 x 500 mg) PO Q6H PRN PRN Pain Score 1-10 #0 tabs 05/05/24 amiodarone 200 mg tablet 200 mg PO DAILY 30 days #30 tabs 05/05/24 amlodipine 5 mg tablet 5 mg PO HS 30 days #30 tabs 05/05/24 finasteride 5 mg tablet 5 mg PO DAILY 30 days #30 tabs 05/05/24 pantoprazole 40 mg tablet,delayed release 40 mg PO DAILY 30 days #30 tabs 05/05/24 tamsulosin 0.4 mg capsule 0.8 mg (2 x 0.4 mg) PO QHS 30 days #60 caps 05/05/24 Hospital Course Operations None Procedures None Summary of Care Provided Minutes Spent on Discharge: 35 Hospital Course: 89 year old male with below past medical history hospitalized for acute respiratory failure with hypoxia 2/2 acute HFrEF, pneumonia ruled out, complicated by UGIB, bradycardia requiring permanent pacemaker placement, admitted to TCU with debility, here for rehabilitation, strengthening, prior to discharge home with . Discharge home with 05/08/2024, [facility] PT/OT/ST/SN. Physical Exam Const alert General Appearance: cooperative HEENT normocephalic Eyes PERRL and EOMs intact bilaterally Neck supple, no JVD and no carotid bruits Resp normal respiratory effort, normal air movement and clear to auscultation bilaterally Cardio regular rate and regular rhythm GI normal to inspection, nondistended, normoactive bowel sounds, non-tender and non-distended Extremity normal capillary refill General Extremity: Negative for edema Skin no rashes or lesions noted General Skin Exam: no breakdown Psych affect normal Appearance: appropriate Weight / BMI Weight Weight: 85.23 kg Body Mass Index (BMI) 24.7 ABG / Lab / Microbiology Data 05/03/24 16:30 05/01/24 05:35 Laboratory: Laboratory Results - last 24 hr 05/04/24 21:17: POC Glucose 154 H 05/05/24 05:56: POC Glucose 87 Microbiology: Microbiology 05/01/24 06:10 Nasal Secretion SARS-CoV-2 Antigen (Rapid) - Final 04/24/24 11:00 Nasal Secretion SARS-CoV-2 Antigen (Rapid) - Final D/C Instructions Discharge Diet: No restrictions Discharge Activity: Return to Normal Activity, May Shower and Use Walker Weight Bearing Status: Weight bearing as tolerated Call your doctor if you observe: Fever of 101 or Higher, Inability to urinate, Inability to have a bowel movement, Shortness of breath, Dizziness, Fainting spells, Swelling in the ankles, Chest pain and Uncontrolled pain Additional Instructions: Discharge home with 05/08/2024, [facility] PT/OT/ST/SN. Please Follow Up With: Nick Villanueva MD When: As scheduled. Meaningful Use Info Meaningful Use Meaningful Use Diagnoses (Choose all that apply): None applicable Ischemic Stroke Statin Dosing Therapy Reference: STATIN DOSE THERAPY REFERENCE: * Patients > 75 years receive moderate or high dose statin therapy. * Patients 75 years or YOUNGER should receive HIGH intensity statin dose unless contraindicated. You will be required to document reason for non-treatment if statin daily dose does not meet guidelines. HIGH DOSE STATIN THERAPY DAILY Atorvastatin > than or = to 40 mg Rosuvastatin > than or = to 20 mg Amlodipine + Atorvastatin > than or = to 2.5/40 mg Ezetimibe + Simvastatin 10/80 mg Simvastatin 80mg Discharge Plan Admission Admit Date/Time: 04/23/24 16:08 Primary Reason for Your Visit: Debility. Attending Provider: Dave Dupont Chi Primary Care Provider: Cory Mckeon Instructions Additional Instructions / Restrictions: Discharge home with 05/08/2024, [facility] PT/OT/ST/SN. Discharge Orders/Prescriptions Prescriptions: New acetaminophen 500 mg Tablet 1,000 mg PO Q6H PRN PRN (Reason: Pain Score 1-10) Qty: 0 0RF amiodarone 200 mg Tablet 200 mg PO DAILY 30 Days Qty: 30 0RF amlodipine 5 mg Tablet 5 mg PO HS 30 Days Qty: 30 0RF tamsulosin 0.4 mg Capsule 0.8 mg PO QHS 30 Days Qty: 60 0RF pantoprazole 40 mg Tablet,Delayed Release (Dr/Ec) 40 mg PO DAILY 30 Days Qty: 30 0RF finasteride 5 mg Tablet 5 mg PO DAILY 30 Days Qty: 30 0RF Continued ferrous sulfate [Feosol] 325 mg (65 mg iron) tablet 325 mg PO BID docusate sodium [Colace] 100 mg capsule 100 mg PO BID PRN (Reason: sool softener) folic acid 400 mcg tablet 800 mcg PO DAILY hydralazine 50 mg tablet 50 mg PO 4X/DAY pravastatin 40 MG tablet 40 mg PO QHS Patient Comments: Cholestrol probenecid 500 MG tablet 500 mg PO DAILY Patient Comments: Gout sitagliptin phosphate 50 mg tablet 50 mg PO DAILY Patient Comments: Diabetes insulin glargine 100 unit/mL (3 mL) insulin pen 8 unit subcut QHS Patient Comments: Long acting insulin for diabetes cyanocobalamin (vitamin B-12) 1,000 MCG tablet 1,000 mcg PO DAILY Patient Comments: Supplement metformin 500 MG tablet,ER sandra.retention 24 hr 500 mg PO DAILY Patient Comments: Diabetes cholecalciferol (vitamin D3) 1,000 UNIT tablet 1,000 unit PO DAILY Patient Comments: Supplement magnesium chloride [Mag 64] 64 mg Tablet,Delayed Release (Dr/Ec) 64 mg PO BID Qty: 0 0RF gabapentin 400 mg capsule 400 mg PO QHS latanoprost 0.005 % drops 1 drp ophthalmic (eye) QHS potassium chloride 20 mEq tablet,ER particles/crystals 20 meq PO DAILY furosemide [Lasix] 40 mg tablet 40 mg PO BIDCM Qty: 120 0RF Discontinued tamsulosin [Flomax] 0.4 mg capsule 0.8 mg PO QHS acetaminophen 325 mg Tablet 650 mg PO Q6H PRN PRN (Reason: Headache/Fever (T>100f)) Qty: 0 0RF amiodarone 200 mg Tablet 200 mg PO DAILY Qty: 0 0RF Mucinex DM 30-600 mg Tablet Extended Release 12 Hr 2 tab PO BID Qty: 0 0RF insulin lispro [Humalog KwikPen Insulin] 100 unit/mL Insulin Pen See Protocol subcut ACHS Qty: 0 0RF Protocol: 4. Sliding Scale Insulin High-Med Dosing Condition: 150-199 mg/dl = 2 units Condition: 200-259 mg/dl = 4 units Condition: 260-324 mg/dl = 6 units Condition: 325-374 mg/dl = 8 units Condition: 375-409 mg/dl = 10 units Condition: 410-449 mg/dl = 11 units Condition: Greater than 449 call physician Protocol Text: - Use for Total Daily Dose of Insulin 56-80 units - Patient who are insulin resistant or septic HIGH MEDIUM DOSING ALGORITHM ipratropium-albuterol 0.5 mg-3 mg(2.5 mg base)/3 mL Solution For Nebulization 3 ml inhalation Q6H.RT PRN (Reason: Shortness Of Breath) Qty: 0 0RF menthol-zinc oxide [Calmoseptine] 0.44-20.6 % Ointment 1 applic topical BID Qty: 0 0RF Protocol: *Topical Application Instructions APPLICATION INSTRUCTIONS: apply to buttocks/coccyx pantoprazole [Protonix] 40 mg tablet,delayed release (DR/EC) 40 mg PO DAILY Qty: 1 0RF amlodipine 10 mg tablet See Rx Instructions .ROUTE .COMPLEX Rx Instructions: TAKE 1 TABLET EVERY BEDTIME No Action (DME) True Metrix Glucose Test Strip Strip MISCELLANEOUS Patient Comments: [NO ORIGINAL SIG] (DME) pen needle, diabetic [Droplet Pen Needle] 31 gauge x 3/16 needle MISCELLANEOUS Patient Comments: [NO ORIGINAL SIG] Referrals / Follow Up: [facility] [Other] - 06/01/24 1:30 pm Cory Mckeon MD [Primary Care Provider] - 05/11/24 1:00 pm (Please arrive 10 min early. Bring his d/c paperwork to his appointment along with his insurance card) Disposition Disposition (needs filled in before D/C Order can be placed): Home Health Service
[2024-05-05 21:48] LABS: Bedside Glucose 179 mg/dL (74-106)
[2024-05-05] MEDS: Acetaminophen 500 MG Tablet 1000 MG PO (23:01)
[2024-05-05] MEDS: Gabapentin 400 MG Capsule PO (23:01)
[2024-05-05 23:02] VITALS: BP 131/63; PULSE 60
[2024-05-05] MEDS: Tamsulosin HCl 0.4 MG Capsule 0.8 MG PO (23:04)
[2024-05-05] MEDS: Insulin Glargine-YFGN 100 UNIT/ML Pen 8 UNIT SC (23:04)
[2024-05-05] MEDS: Menthol/Lanolin/Calamine/Znox 113 GM Tube 1 APPLIC TOPICAL (23:04)
[2024-05-05] MEDS: Pravastatin 40 MG Tablet PO (23:05)
[2024-05-05] MEDS: amLODIPine 5 MG Tablet PO (23:07)
[2024-05-05] MEDS: Latanoprost 0.005% 1 Bottle 1 DRP OPHTHALMIC (23:07)
[2024-05-06] VITALS (9 sets, daily range): BP systolic 102–134; BP diastolic 50–63; PULSE 58–67; RESP 14–16; TEMP 36.4; O2SAT 91–93
--- NOTE | 2024-05-06 03:54 | NURSING ---
Pt's pre-void bladder scan measured 1035ml urine. Encouraged patient to get up and use the restroom to try to void. Patient tried for an appropriate amount of time. His bowels moved, not much urine observed in the toilet. Patient reported he could not urinate and felt pressure and some pain to his bladder. Patient's bladder scan post-void measured 988. Per order, patient received straight cath, resulting in an output of 1,100ml of urine. Hematuria, sediment, and strong odor observed. Requesting a UA due to additional symptom of suprapubic pain.
[2024-05-06] MEDS: hydrALAZINE 50 MG Tablet PO ×4 (06:16→22:24)
[2024-05-06 06:29] LABS: Bedside Glucose 102 mg/dL (74-106)
--- NOTE | 2024-05-06 06:40 | NURSING ---
Patient reports increased pain, requests stronger pain med for my back, voices frustration with continued urine retention, fatigues easily and reports cares for with dementia at home. EAx1-2 with ambulation. EAX2 with bed mobility. Written communication left for Dr. Dupont regarding request for stronger pain medication and patient plan for d/c on 05/08, Voicemail left for SW regarding planned d/c for 05/08 and patient continued retention and weakness and extensive staff assist.
[2024-05-06] MEDS: Ensure Clear 120 ML Liquid PO ×3 (08:20→17:57)
--- NOTE | 2024-05-06 08:20 | CASEMGMT ---
Social Work SW received message from RN with concerns regrading pt's discharge home. SW spoke with pt's dgt Kaylee at this time and voiced concerns with return home. SW re explained to Kaylee appeal rights as pt has been denied continued stay by insurance. Family training moved up to 1030 today. Kaylee will assess her ability to care for pt at home and decide at that time if she will appeal insurance decision for non coverage. Kaylee made aware that appeal needs to take place by noon today. REBECCA Gallardo
[2024-05-06] MEDS: metFORMIN (XR) 500 MG Tablet PO (08:21)
[2024-05-06] MEDS: Cholecalciferol (VIT D3) 25 MCG TABLET (1,000 UNITS) PO (08:21)
[2024-05-06] MEDS: Ferrous Sulfate 325 MG Tablet PO ×2 (08:21→17:54)
[2024-05-06] MEDS: Folic Acid 1 MG Tablet PO (08:21)
[2024-05-06] MEDS: Magnesium Chloride 64 MG Delay Rel.Tablet PO ×2 (08:21→22:26)
[2024-05-06] MEDS: Amiodarone 200 MG Tablet PO (08:21)
[2024-05-06] MEDS: Furosemide 40 MG Tablet PO ×2 (08:21→17:56)
[2024-05-06] MEDS: LINAGLIPTIN 5 MG TABLET PO (08:21)
[2024-05-06] MEDS: Pantoprazole Sodium 40 MG Tablet PO (08:21)
[2024-05-06] MEDS: Potassium Chloride Oral Tablet 20 MEQ PO (08:21)
[2024-05-06] MEDS: Cyanocobalamin 500 MCG Tablet PO (08:22)
[2024-05-06] MEDS: Menthol/Lanolin/Calamine/Znox 113 GM Tube 1 APPLIC TOPICAL ×2 (08:22→22:36)
[2024-05-06] MEDS: Senna/Docusate Sodium 1 Tablet 2 TABLET PO ×2 (08:26→22:26)
[2024-05-06] MEDS: Nystatin Powder 15gm Bottle 1 APPLIC TOPICAL ×2 (08:26→22:36)
[2024-05-06] MEDS: Finasteride 5 MG Tablet PO (08:27)
[2024-05-06 10:45] LABS: Mucous, Urine 0 SEEN /hpf (<or=2+); Squamous Epithelial Cells - UA 0 SEEN /hpf (0-5)
[2024-05-06 10:46] LABS: Color, Urine Yellow (Yellow); Glucose, Dipstick Normal (Normal); Ketone-Dipstick Negative (Negative); Leukocyte Esterase-Dipstick 500 /ul (Negative); Nitrite-Dipstick Negative (Negative); Occult Blood-Urine 250 /ul (Negative); Protein-Dipstick 100 mg/dl (Negative); Specific Gravity, Urine 1.015 (1.002-1.030); Urine Bilirubin Dipstick Negative (Negative); Urine Clarity Cloudy (Clear); Urine Urobilinogen Normal (Normal)
[2024-05-06 10:53] LABS: White Blood Cells 10-25 SEEN /hpf (0-5)
[2024-05-06 10:54] LABS: Bacteria 2+ /hpf (None Seen); Red Blood Cells-Urine 10-25 SEEN /hpf (0-5)
[2024-05-06 10:56] LABS: Transitional Epithelial - Ur 0-5 SEEN /hpf (0-5)
--- NOTE | 2024-05-06 11:38 | MDS.RN ---
Information for the MDS was obtained from review of the clinical record, interview of resident, staff, and direct observation of resident?s care.
--- NOTE | 2024-05-06 14:43 | CASEMGMT ---
Social Work Phone call placed to pt dgt Kaylee who participated in family training with therapy today. Kaylee is understanding of pt's limitations and feels pt can return home on Saturday as planned. Kaylee and pt's son plan to provide 24 hour care initially to ensure pt and are cared for. [facility] is able to accept pt for home health PT/OT/ST/SN. Kaylee made aware. Pt has needed DME. Kaylee to transport pt home. DC Date: 05/08/24 DC Disposition: Home with [facility], family support REBECCA Gallardo
[2024-05-06 21:39] LABS: Bedside Glucose 159 mg/dL (74-106)
[2024-05-06] MEDS: traMADol 50 MG Tablet PO (22:23)
[2024-05-06] MEDS: Gabapentin 400 MG Capsule PO (22:23)
[2024-05-06] MEDS: amLODIPine 5 MG Tablet PO (22:24)
[2024-05-06] MEDS: Nitrofurantoin Macrocrystals 100 MG Capsule PO (22:24)
[2024-05-06] MEDS: Insulin Glargine-YFGN 100 UNIT/ML Pen 8 UNIT SC (22:25)
[2024-05-06] MEDS: Tamsulosin HCl 0.4 MG Capsule 0.8 MG PO (22:25)
[2024-05-06] MEDS: Pravastatin 40 MG Tablet PO (22:26)
[2024-05-06] MEDS: Latanoprost 0.005% 1 Bottle 1 DRP OPHTHALMIC (22:29)
[2024-05-06] MEDS: 0.9% Saline Lock 10 ML Syringe IV (22:29)
[2024-05-07] VITALS (9 sets, daily range): BP systolic 101–116; BP diastolic 49–70; PULSE 62–87; RESP 18–20; TEMP 36.6; O2SAT 82–96; BMI 24.7
[2024-05-07] MEDS: hydrALAZINE 50 MG Tablet PO ×4 (05:41→22:22)
--- NOTE | 2024-05-07 05:53 | NURSING ---
Upon entering room to administer medications, patient noted to be using more effort to breathe than previously noted, utilizing accessory muscles. Pulse ox obtained; 82% on room air. Encouraged to take deep breaths and this nurse applied 2L O2 via NC. Shortly after, pulse ox recheck was 96%. Patient denied feeling short of breath and denies cough; lung sounds diminished throughout.
[2024-05-07 06:35] LABS: Bedside Glucose 109 mg/dL (74-106)
--- NOTE | 2024-05-07 08:04 | RAD_ITS ---
STUDY: X-RAY CHEST REASON FOR EXAM: Male, 89 years old. SOB, Hypoxia. TECHNIQUE: PA and lateral views of the chest. COMPARISON: Comparison is made with prior study dated April 21, 2024. FINDINGS: A left-sided unipolar pacemaker seen. Since prior study, there is progressive infiltration in the left lower lobe with a small left pleural effusion. There is mild cardiac enlargement. Normal mediastinum and malissa. Normal visualized pulmonary arteries. There is atherosclerotic calcification of the aortic arch with tortuosity. There are diffuse degenerative changes of the visualized thoracic spine. Normal visualized ribs, clavicles, and shoulders. There is no demonstrated abnormality of the visualized soft tissue structures of the upper abdomen. RAD/Chest PA and Lateral IMPRESSION: Progressive pulmonary infiltration at the left lung base with small left pleural effusion. Electronically Signed: Leonid Wilkerson MD at 12:08 EDT ,
--- NOTE | 2024-05-07 08:50 | NURSING ---
Chest Xray ordered, pt placed on 2L O2 for pulse ox of 82 this am. Overnight pulse ox study to be completed tonight.
[2024-05-07] MEDS: LINAGLIPTIN 5 MG TABLET PO (09:08)
[2024-05-07] MEDS: Furosemide 40 MG Tablet PO ×2 (09:08→17:08)
[2024-05-07] MEDS: Nitrofurantoin Macrocrystals 100 MG Capsule PO (09:08)
[2024-05-07] MEDS: Magnesium Chloride 64 MG Delay Rel.Tablet PO ×2 (09:09→22:23)
[2024-05-07] MEDS: Cyanocobalamin 500 MCG Tablet PO (09:09)
[2024-05-07] MEDS: Amiodarone 200 MG Tablet PO (09:09)
[2024-05-07] MEDS: Folic Acid 1 MG Tablet PO (09:09)
[2024-05-07] MEDS: Finasteride 5 MG Tablet PO (09:09)
[2024-05-07] MEDS: Pantoprazole Sodium 40 MG Tablet PO (09:09)
[2024-05-07] MEDS: metFORMIN (XR) 500 MG Tablet PO (09:09)
[2024-05-07] MEDS: Ferrous Sulfate 325 MG Tablet PO ×2 (09:09→17:08)
[2024-05-07] MEDS: Potassium Chloride Oral Tablet 20 MEQ PO (09:09)
[2024-05-07] MEDS: Nystatin Powder 15gm Bottle 1 APPLIC TOPICAL ×2 (09:10→22:19)
[2024-05-07] MEDS: Menthol/Lanolin/Calamine/Znox 113 GM Tube 1 APPLIC TOPICAL ×2 (09:10→22:19)
[2024-05-07] MEDS: Ensure Clear 120 ML Liquid PO ×3 (09:11→17:07)
[2024-05-07] MEDS: Cholecalciferol (VIT D3) 25 MCG TABLET (1,000 UNITS) PO (09:12)
--- NOTE | 2024-05-07 11:20 | CASEMGMT ---
Social Work BIMS () and PHQ9 () interviews completed on this date for MDS assessment. REBECCA Gallardo
--- NOTE | 2024-05-07 11:53 | NURSING ---
Education provided to pt on liz care. pt struggled with understanding the process of emptying liz bag and dexterity of opening and closing the two clamps. Will continue with education.
--- NOTE | 2024-05-07 13:25 | NURSING ---
Addendum entered by Nela Carrasquillo 05/07/24 13:39: Updated patient and daughter Kaylee (via phone) of chest xray results and new orders. Discussed patient staying through course of IV antibiotics if insurance approves. SW notified of new orders. Original Note: Updated Dr. Dupont of chest xray results, verbal order to start patient on IV levaquin 750mg q24 x7 days to treat UTI and pneumonia. Oral antibiotics for UTI dc'd by Dr. Dupont.
--- NOTE | 2024-05-07 13:29 | NURSING ---
Xray results show Pneumonia, pt ordered Levaquin IV.
--- NOTE | 2024-05-07 14:27 | CASEMGMT ---
Social Work Pt now presenting with pneumonia. Per physician, pt will need IV ATB x 7 days. AYO spoke with pt dgt who is agreeable for pt to continue stay at TCU for changes in medical condition if the insurance approves continued stay. AYO spoke with María in admissions who will submit request for continued stay to insurance company. AYO to continue to follow. REBECCA Gallardo
[2024-05-07] MEDS: 0.9% Normal Saline 250 ML IV.SOLN. IV (15:54)
[2024-05-07] MEDS: 0.9% Saline Lock 10 ML Syringe IV (15:55)
[2024-05-07] MEDS: levoFLOXacin IV 750 MG in Empty Viaflex Q48 100 MG IV (15:55)
[2024-05-07 22:04] LABS: Bedside Glucose 150 mg/dL (74-106)
[2024-05-07] MEDS: Gabapentin 400 MG Capsule PO (22:21)
[2024-05-07] MEDS: Tamsulosin HCl 0.4 MG Capsule 0.8 MG PO (22:23)
[2024-05-07] MEDS: amLODIPine 5 MG Tablet PO (22:24)
[2024-05-07] MEDS: Pravastatin 40 MG Tablet PO (22:24)
[2024-05-07] MEDS: Senna/Docusate Sodium 1 Tablet 2 TABLET PO (22:24)
[2024-05-07] MEDS: Latanoprost 0.005% 1 Bottle 1 DRP OPHTHALMIC (22:26)
[2024-05-07] MEDS: Insulin Glargine-YFGN 100 UNIT/ML Pen 8 UNIT SC (22:27)
[2024-05-07] MEDS: Acetaminophen 500 MG Tablet 1000 MG PO (22:35)
--- NOTE | 2024-05-07 22:56 | NURSING ---
Max assist x2 with transfers and bed mobility this HS, patient fatigues easily with all ADLS, currently being treated for PNE, Overnight pulse ox initiated by RT as ordered. No distress observed or reported. Call light in reach.
--- NOTE | 2024-05-08 03:02 | NURSING ---
Addendum entered by Ralf Santoro 05/08/24 05:07: Written communication left for Dr. Dupont regarding current Hydralazine order and frequent low BP/HR. Addendum entered by Ralf Santoro 05/08/24 04:43: Written communication left for Dr. Dupont regarding continues edema +2 to BLE, scrotal edema, crackles to lung garcia (being tx for PNE currently), confusion and observed physical decline. Original Note: Patient rep (as listed on facesheet) Darin calls at this time for update due to noting patient weak during visit yesterday, update provided regarding IV ATB for PNE and continues to fatigue easily. Pt. rep expresses thanks for update, no further concerns voiced at this time.
[2024-05-08 04:45] VITALS: BP 86/55; PULSE 57
[2024-05-08 05:00] VITALS: BP 97/54; PULSE 57; RESP 18
[2024-05-08 05:55] VITALS: TEMP 37.2
[2024-05-08 06:05] LABS: Absolute Lymphocyte Count 0.54 X10^3/uL (0.83-4.51); Absolute Neutrophil Count 14.6 X10^3/uL (2.0-7.7); Basophil# 0.02 X10^3/uL; Basophil% 0.1 % (0-1); Hemoglobin 8.4 g/dL (13.0-16.5); Lymphocyte # 0.54 X10^3/ul (0.83-4.51); Lymphocyte % 3.3 % (19-41); Mean Corp Hgb Conc 31.1 g/dL (32-36); Mean Corpuscular Hgb 28.6 pg (27.0-32.0); Mean Corpuscular Volume 91.8 fL (80-94); Mean Platelet Vol. 9.8 fl (6.2-12.0); Monocyte# 0.74 X10^3/uL; Monocyte% 4.5 % (0-10); NRBC Flagged by Analyzer 0 % (0-5); Neutrophil # 14.57 X10^3/uL (2.7-7.7); Neutrophil % 89.6 % (47-70); POSITIVE DIFFERENTIAL YES; Platelet Count 174 K/mm3 (150-450); RBC Distribution Width CV 16.1 % (11.6-14.6); RBC Distribution Width SD 53.9 fl (35.1-43.9); Red Blood Count 2.94 M/mm3 (4.6-6.2); White Blood Count 16.3 K/mm3 (4.4-11.0)
[2024-05-08 06:20] LABS: Anion Gap 6 (5-15); BUN 34 mg/dL (7-18); BUN/Creat Ratio 13.7 RATIO (10-20); Calcium,Total 8.2 mg/dL (8.5-10.1); Chloride 98 mmol/L (98-107); Creatinine, Serum 2.49 mg/dL (0.70-1.30); EST Glomerular Filtration Rate 26 mL/min (>60); Est Glom Filt Rate - Afr Amer 32 mL/min (>60); Estimated Creatinine Clearance 22.73 ml/min; Glucose 164 mg/dL (74-106); Sodium Level 128 mmol/L (136-145)
[2024-05-08 06:44] LABS: Bedside Glucose 165 mg/dL (74-106)
--- NOTE | 2024-05-08 07:38 | US_ITS ---
STUDY: RENAL ULTRASOUND - COMPLETE REASON FOR EXAM: Male, 89 years old. JENNIFER TECHNIQUE: Ultrasound evaluation of the kidneys was performed with real-time and static berry-scale imaging. COMPARISON: None. FINDINGS: Exam limited by patient condition. RIGHT KIDNEY: Normal location of the right kidney, which is normal in size. The right kidney measures 13.1 x 5 x 5.6 cm. There is a normal cortex of the right kidney. The renal cortex measures 1.4 cm. Multiple right renal cysts are seen with the largest measuring 11.4 cm. There are no right renal calculi. There is no right hydronephrosis. DISTAL RIGHT URETER: There is non-visualization of the distal right ureter. There is no demonstrated right ureterovesical junction calculus. There is no demonstrated right ureteral jet. LEFT KIDNEY: Normal location of the left kidney, which is normal in size. The left kidney measures 11.6 x 5.4 x 5.7 cm. There is a normal cortex of the left kidney. The renal cortex measures 1.3 cm. Multiple renal cysts are seen measuring as much as 5.3 cm. There are no left renal calculi. There is no left hydronephrosis. DISTAL LEFT URETER: There is non-visualization of the distal left ureter. There is no demonstrated left ureterovesical junction calculus. There is no demonstrated left ureteral jet. BLADDER: There is a Walden catheter emptying the bladder. Cannot exclude bladder wall thickening. Heterogeneous enlarged prostate. US/Kidney and Bladder IMPRESSION: Multiple bilateral renal cysts as much as 11.4 cm. Nondistended bladder with question diffuse bladder wall thickening. Heterogeneous enlarged prostate. Electronically Signed: Franco Bowie MD at 17:33 EDT ,
[2024-05-08 08:37] LABS: Osmolality, Serum 280 mOsm/KG (280-301)
[2024-05-08] MEDS: Furosemide 40 MG/4 ML Vial IV (08:56)
[2024-05-08] MEDS: Folic Acid 1 MG Tablet PO (08:56)
[2024-05-08] MEDS: Ensure Clear 120 ML Liquid PO ×3 (08:56→18:35)
[2024-05-08] MEDS: Ferrous Sulfate 325 MG Tablet PO ×2 (08:56→18:35)
[2024-05-08] MEDS: Amiodarone 200 MG Tablet PO (08:56)
[2024-05-08] MEDS: Magnesium Chloride 64 MG Delay Rel.Tablet PO ×2 (08:57→21:10)
[2024-05-08] MEDS: Potassium Chloride Oral Tablet 20 MEQ PO (08:57)
[2024-05-08] MEDS: Pantoprazole Sodium 40 MG Tablet PO (08:58)
[2024-05-08] MEDS: Cholecalciferol (VIT D3) 25 MCG TABLET (1,000 UNITS) PO (08:58)
[2024-05-08] MEDS: Senna/Docusate Sodium 1 Tablet 2 TABLET PO (08:58)
[2024-05-08] MEDS: Polyethylene Glycol 3350 17 GM PACKET PO (08:58)
[2024-05-08] MEDS: LINAGLIPTIN 5 MG TABLET PO (08:59)
[2024-05-08] MEDS: Finasteride 5 MG Tablet PO (08:59)
[2024-05-08] MEDS: Cyanocobalamin 500 MCG Tablet PO (08:59)
[2024-05-08 09:23] LABS: Osmolality, Urine 300 mOsm/KG
[2024-05-08] MEDS: Menthol/Lanolin/Calamine/Znox 113 GM Tube 1 APPLIC TOPICAL ×2 (09:23→21:13)
[2024-05-08 09:28] LABS: Urine Sodium < 5 mmol/L (Not Establ.)
[2024-05-08 10:00] VITALS: BMI 25.0
--- NOTE | 2024-05-08 12:23 | CASEMGMT ---
Social Work Insurance Rescinded [facility] due to medical decline on this date and offered continued stay with next review on 05/13. SW notified pt's dgt Kaylee and she is agreeable for pt to stay in TCU at this time. SW met with pt and explained situation, although pt is disappointed he cannot return home today he is agreeable to continued stay. Team updated. Message sent to [facility] putting referral on hold. SW to continue to follow for dc planning. REBECCA Gallardo
[2024-05-08] MEDS: Nystatin Powder 15gm Bottle 1 APPLIC TOPICAL ×2 (12:25→21:13)
[2024-05-08 12:44] VITALS: O2SAT 96
[2024-05-08 13:03] VITALS: BP 93/52; PULSE 50; RESP 20; TEMP 36.4; O2SAT 92
--- NOTE | 2024-05-08 13:11 | PCM.CONS.R ---
Assessment & Plan Assessment/Plan (1) JENNIFER (acute kidney injury): (2) Chronic kidney disease, stage 3b: (3) Hyponatremia: (4) HFrEF (heart failure with reduced ejection fraction): PLAN: Plan Impression/Plan: The patient is a 89-year-old man with past history of type 2 diabetes mellitus, hypertension, atrial fibrillation, nonischemic cardiomyopathy with HFrEF (EF 25%), BPH, and hyperlipidemia. Patient was admitted to [facility] between 04/13/2024 until 04/23/2024 with acute decompensated heart failure as well as GI bleed. Patient has been at [facility] for [facility] since 04/23/2024. Nephrology is asked see patient on 05/08/2024 because of JENNIFER on CKD. Acute kidney injury on chronic kidney disease stage G3b. Baseline serum creatinine has been around 1.30 to 1.50 mg/dL. I suspect patient has CKD from diabetic kidney disease as well as cardiorenal syndrome. Serum creatinine has increased to 2.49 mg/dL on 05/08/2024 from previous baseline. Last available serum creatinine from 05/01/2024 was 1.41 mg/dL. I suspect JENNIFER is secondary to intravascular volume/effective blood volume depletion from diuresis. Another possible cause would be decreased effective blood volume from vasodilation as BP has been lower the past 24 hours with leukocytosis. Asides from lower extremity edema, patient appears to be compensated from heart failure. His lungs are clear the patient has not required increasing supplemental oxygen. Urine sodium is less than 10 mmol/L which is consistent with prerenal azotemia as well. I will stop diuretic for now. Will give patient back limited amount of IV fluid and reassess volume status again. Will also stop scheduled potassium chloride for now as well since we are not scheduling loop diuretic. Recheck renal function, volume status, acid-base and electrolytes again tomorrow. Hyponatremia. Serum sodium is mildly decreased at 128 mmol/L today. Patient is asymptomatic from hyponatremia. Suspect hyponatremia is due to decreased effective blood volume since urine sodium is less than 10 mmol/L. As discussed above, we will stop furosemide for now. Encourage patient to push oral intake of solute such as protein. Check serum sodium again tomorrow. Heart failure with reduced ejection fraction. Patient appears to be compensated. Although there is some lower extremity edema (serum albumin was 1.9 g/dL on 04/20/2024), patient is not dyspneic. Lungs are clear. Therefore, I think it is safe to stop furosemide for now. Patient will need close reassessment of volume status given history of HFrEF. However, he should be able to tolerate gentle volume expansion today. Leukocytosis. Patient has new onset leukocytosis with WBC of 16.3 K/mm3. There is also left shift of WBC. Patient is not febrile although BP has been softer in the last 24 hours. I will defer workup of possible infection to primary service. HPI Consult Data Date of Consult: 05/08/24 HPI Narrative Reason for Consultation: JENNIFER on CKD HPI Narrative: The patient is a 89-year-old man with past history of type 2 diabetes mellitus, hypertension, atrial fibrillation, nonischemic cardiomyopathy with HFrEF (EF 25%), BPH, and hyperlipidemia. The patient was admitted to [facility] between 04/13/2024 until 04/23/2024 with acute decompensated heart failure which was treated with GDMT and diuretic. Patient also had hemorrhagic shock due to GI bleed which has resolved. Patient was then transferred to TCU on 04/23/2024. Nephrology is asked to see the patient because of JENNIFER. Serum creatinine has increased to 2.49 mg/dL on 05/08/2024. Baseline serum creatinine appears to be around 1.30 to 1.50 mg/dL. While patient was admitted to the [facility], serum creatinine fluctuated anywhere between 1.31 mg/dL up to 1.71 mg/dL. Serum creatinine was most recently measured at 1.41 mg/dL on 05/01/2024 prior to today. The patient denies current chest pain, dyspnea at rest, nausea, vomiting, or diarrhea. Patient reports fair appetite. He still has lower extremity edema although severity has improved compared to when he first presented to the hospital. There has been no fever. Patient denies cough, sputum production, headache, or chills. There is no gross hematuria or dysuria. However, patient does have indwelling Walden catheter. [facility] Medical History (Updated 05/08/24 @ 13:[address] Amanda Davis MD) Atrial fibrillation with slow ventricular response Presence of cardiac pacemaker Hypothyroidism Non-smoker Peripheral vascular disease Prostate cancer Lumbar stenosis Gout DDD (degenerative disc disease) Carotid artery stenosis Chronic diastolic (congestive) heart failure Non-rheumatic aortic stenosis Atherosclerosis of coronary artery of [place] heart without angina pectoris Secondary pulmonary arterial hypertension Essential (primary) hypertension Left bundle branch block Stool guaiac positive Iron deficiency anemia Personal history of colonic polyps History of malignant neoplasm of colon Dysphasia Chronic kidney disease, stage III (moderate) Thoracic aortic aneurysm without rupture Colon cancer, ascending Dyslipidemia Type II diabetes mellitus Home Medications ?Medication ?Instructions ?Recorded ?Last Taken ?Type pravastatin 40 mg tablet 40 mg PO QHS cholesterol 05/14/16 04/22/24 History probenecid 500 mg tablet 500 mg PO DAILY gout 05/14/16 04/23/24 08:15 History cholecalciferol (vitamin D3) 25 1,000 unit PO DAILY vitamin 07/16/16 04/23/24 08:25 History mcg (1,000 unit) tablet cyanocobalamin (vitamin B-12) 1,000 mcg PO DAILY supplement 07/16/16 04/23/24 08:25 History 1,000 mcg tablet metformin 500 mg 24 hr 500 mg PO DAILY diabetes 07/16/16 04/14/24 History tablet,extended release (gastric retention) sitagliptin phosphate 50 mg tablet 50 mg PO DAILY diabetes 06/25/19 04/23/24 08:25 History docusate sodium 100 mg capsule 100 mg PO BID PRN sool softener 09/11/19 Unknown History (Colace) ferrous sulfate 325 mg (65 mg 325 mg PO BID iron supplement 09/11/19 04/23/24 08:25 History iron) tablet (Feosol) folic acid 400 mcg tablet 800 mcg PO DAILY vitamin 09/11/19 04/12/24 History insulin glargine 100 unit/mL (3 8 unit subcut QHS diabetes 09/11/19 04/22/24 History mL) subcutaneous pen blood sugar diagnostic (True 03/18/24 Unknown History Metrix Glucose Test Strip) gabapentin 400 mg capsule 400 mg PO QHS nerve pain 03/18/24 04/22/24 History latanoprost 0.005 % eye drops 1 drp ophthalmic (eye) QHS eye 03/18/24 04/22/24 History health pen needle, diabetic 31 gauge x 03/18/24 Unknown History 01/31 (Droplet Pen Needle) potassium chloride 20 mEq 20 meq PO DAILY supplement 03/18/24 04/23/24 08:15 History tablet,extended release(part/cryst) furosemide 40 mg tablet (Lasix) 40 mg PO BIDCM Edema #120 tabs 03/20/24 04/12/24 Rx hydralazine 50 mg tablet 50 mg PO 4X/DAY BP 04/02/24 04/23/24 14:25 History magnesium chloride 64 mg 64 mg PO BID Supplement #0 tabs 04/23/24 04/23/24 08:30 Rx (magnesium chloride) tablet,delayed release (Mag 64) acetaminophen 500 mg tablet 1,000 mg (2 x 500 mg) PO Q6H PRN 05/05/24 Unknown Rx PRN Pain Score 1-10 #0 tabs amiodarone 200 mg tablet 200 mg PO DAILY 30 days #30 tabs 05/05/24 Unknown Rx amlodipine 5 mg tablet 5 mg PO HS 30 days #30 tabs 05/05/24 Unknown Rx finasteride 5 mg tablet 5 mg PO DAILY 30 days #30 tabs 05/05/24 Unknown Rx pantoprazole 40 mg tablet,delayed 40 mg PO DAILY 30 days #30 tabs 05/05/24 Unknown Rx release tamsulosin 0.4 mg capsule 0.8 mg (2 x 0.4 mg) PO QHS 30 days 05/05/24 Unknown Rx #60 caps nitrofurantoin 100 mg PO BID 5 days #10 caps 05/07/24 Unknown Rx monohydrate/macrocrystals 100 mg capsule Allergy/AdvReac Type Severity Reaction Status Date / Time Milk Containing Products AdvReac NEEDS Verified 04/13/24 17:29 (Dairy) (Milk Containing FOLLOW-UP Products) quinapril (From Accupril) AdvReac Other Verified 04/13/24 17:29 Family History Mother Colon cancer Heart disease Hypertension CAD (coronary artery disease) Father Cancer prostate CVA (cerebral vascular accident) CAD (coronary artery disease) Brother CAD (coronary artery disease) CABG Brother CAD (coronary artery disease) CABG Surgical History History of left heart catheterization (07/2001) H/O colectomy S/P colonoscopy S/P cataract extraction Status post colectomy Social History household members: spouse Smoking Status: Former smoker how long ago did patient quit smokin years ago alcohol intake: never substance use type: does not use ROS ROS Narrative 08/27 ROS was done and is otherwise noncontributory. Physical Exam Narrative General: Alert and oriented x3, NAD. HEENT: Normocephalic, atraumatic. Mucous membrane moist without erythema. PERRLA, EOMI. decreased hearing. Neck: Supple, no JVD. Trachea is midline. No thyromegaly or lymphadenopathy. Cardiovascular: Normal S1, S2. There is 3/6 systolic murmur best heard in the left upper sternal border. Respiratory: Lungs are clear to auscultation bilaterally. No wheezing, rhonchi, or rales. Abdomen: Normal bowel sounds, soft, nontender, no guarding or rebound, no organomegaly. Extremities: 2+ lower extremity edema. No clubbing or cyanosis. Musculoskeletal: Full passive range of motion, no joint swelling. Psychiatric: Normal mood and affect. Skin: Warm and dry, no rash. Neurologic: Cranial nerve II to XII are grossly intact. No focal neurologic deficits. Lab / Micro Data 05/08/24 05:30 05/08/24 05:30 Labs: Laboratory Results - last 24 hr 05/07/24 21:46: POC Glucose 150 H 05/08/24 05:30: WBC 16.3 H, RBC 2.94 L, Hgb 8.4 L, Hct 27.0 L, MCV 91.8, MCH 28.6, MCHC 31.1 L, RDW Std Deviation 53.9 H, RDW Coeff of Rachelle 16.1 H, Plt Count 174, MPV 9.8, Immature Gran % (Auto) 2.500 H, Neut % (Auto) 89.6 H, Lymph % (Auto) 3.3 L, Kingfisher % (Auto) 4.5, Eos % (Auto) 0.0, Baso % (Auto) 0.1, Absolute Neuts (auto) 14.6 H, Absolute Lymphs (auto) 0.54 L, Nucleated RBC % 0, Sodium 128 L, Potassium 5.0, Chloride 98, Carbon Dioxide 24.0, Anion Gap 6, BUN 34 H, Creatinine 2.49 H, Estim Creat Clear Calc 22.73, Est GFR (MDRD) Af Amer 32 L, Est GFR (MDRD) Non-Af 26 L, BUN/Creatinine Ratio 13.7, Glucose 164 H, Calcium 8.2 L 05/08/24 06:10: POC Glucose 165 H 05/08/24 07:56: Serum Osmolality 280 05/08/24 08:30: Urine Osmolality 300, Ur Random Sodium < 5 Micro: Microbiology 05/06/24 10:35 Urine, Catheterized Urine Culture - Final Presumptive E. coli 05/08/24 05:00 Nasal Secretion SARS-CoV-2 Antigen (Rapid) - Final
[2024-05-08] MEDS: 0.9% Normal Saline (1000mL) 1,000 ML 75 ML IV (15:08)
[2024-05-08 21:09] VITALS: BP 102/60; PULSE 57; RESP 19; O2SAT 98
[2024-05-08] MEDS: Tamsulosin HCl 0.4 MG Capsule 0.8 MG PO (21:09)
[2024-05-08] MEDS: Pravastatin 40 MG Tablet PO (21:11)
[2024-05-08] MEDS: Latanoprost 0.005% 1 Bottle 1 DRP OPHTHALMIC (21:12)
[2024-05-08] MEDS: Gabapentin 400 MG Capsule PO (21:16)
[2024-05-08] MEDS: Insulin Glargine-YFGN 100 UNIT/ML Pen 8 UNIT SC (21:19)
[2024-05-08] MEDS: Acetaminophen 500 MG Tablet 1000 MG PO (21:25)
[2024-05-08 21:46] LABS: Bedside Glucose 198 mg/dL (74-106)
--- NOTE | 2024-05-09 04:15 | NURSING ---
Accompanied RN to assess liz d/t decreased urine output. Bladder scan completed and resulted 1ml. Will continue to monitor.
[2024-05-09 05:38] LABS: Absolute Lymphocyte Count 0.57 X10^3/uL (0.83-4.51); Absolute Neutrophil Count 9.4 X10^3/uL (2.0-7.7); Basophil# 0.02 X10^3/uL; Basophil% 0.2 % (0-1); Eosinophil# 0.04 X10^3/uL; Eosinophils% 0.4 % (0-5); Hematocrit 26.2 % (40-54); Hemoglobin 7.8 g/dL (13.0-16.5); Lymphocyte # 0.57 X10^3/ul (0.83-4.51); Lymphocyte % 5.3 % (19-41); Mean Corp Hgb Conc 29.8 g/dL (32-36); Mean Corpuscular Hgb 27.6 pg (27.0-32.0); Mean Corpuscular Volume 92.6 fL (80-94); Mean Platelet Vol. 9.9 fl (6.2-12.0); Monocyte# 0.65 X10^3/uL; Monocyte% 6.1 % (0-10); NRBC Flagged by Analyzer 0 % (0-5); Neutrophil # 9.37 X10^3/uL (2.7-7.7); Neutrophil % 87.3 % (47-70); POSITIVE DIFFERENTIAL YES; Platelet Count 147 K/mm3 (150-450); RBC Distribution Width CV 16.4 % (11.6-14.6); Red Blood Count 2.83 M/mm3 (4.6-6.2); White Blood Count 10.7 K/mm3 (4.4-11.0)
[2024-05-09 05:52] LABS: Anion Gap 8 (5-15); BUN 46 mg/dL (7-18); BUN/Creat Ratio 16.7 RATIO (10-20); Calcium,Total 8.3 mg/dL (8.5-10.1); Chloride 99 mmol/L (98-107); Creatinine, Serum 2.75 mg/dL (0.70-1.30); EST Glomerular Filtration Rate 23 mL/min (>60); Est Glom Filt Rate - Afr Amer 28 mL/min (>60); Estimated Creatinine Clearance 20.58 ml/min; Glucose 122 mg/dL (74-106); Potassium 4.6 mmol/L (3.5-5.1); Sodium Level 129 mmol/L (136-145)
[2024-05-09 06:38] LABS: Bedside Glucose 113 mg/dL (74-106)
[2024-05-09] MEDS: Ensure Clear 120 ML Liquid PO ×3 (08:13→17:35)
[2024-05-09] MEDS: Folic Acid 1 MG Tablet PO (08:14)
[2024-05-09] MEDS: Ferrous Sulfate 325 MG Tablet PO ×2 (08:14→17:35)
[2024-05-09] MEDS: levoFLOXacin IV 750 MG in Empty Viaflex Q48 100 MG IV (10:10)
[2024-05-09] MEDS: Amiodarone 200 MG Tablet PO (10:17)
[2024-05-09] MEDS: Magnesium Chloride 64 MG Delay Rel.Tablet PO ×2 (10:17→22:48)
[2024-05-09] MEDS: Pantoprazole Sodium 40 MG Tablet PO (10:18)
[2024-05-09] MEDS: Cholecalciferol (VIT D3) 25 MCG TABLET (1,000 UNITS) PO (10:19)
[2024-05-09] MEDS: Cyanocobalamin 500 MCG Tablet PO (10:19)
[2024-05-09] MEDS: Senna/Docusate Sodium 1 Tablet 2 TABLET PO ×2 (10:19→22:50)
[2024-05-09] MEDS: Finasteride 5 MG Tablet PO (10:20)
[2024-05-09] MEDS: LINAGLIPTIN 5 MG TABLET PO (10:21)
[2024-05-09] MEDS: Nystatin Powder 15gm Bottle 1 APPLIC TOPICAL ×2 (10:22→22:48)
[2024-05-09] MEDS: Menthol/Lanolin/Calamine/Znox 113 GM Tube 1 APPLIC TOPICAL ×2 (10:22→22:47)
[2024-05-09] MEDS: 0.9% Normal Saline (250mL Bag) 250 ML 15 ML IV (11:07)
[2024-05-09 13:10] VITALS: BP 104/52; PULSE 51; RESP 16; TEMP 36.4; O2SAT 98
--- NOTE | 2024-05-09 18:51 | NURSING ---
Pt HGB dropped from 8.[address] Dupont updated N.O. received for Occult Stool and recheck H&H tomorrow. Also, updated on pt's BUN and Cr per Dr. Dupont update Nephrology. Dr. Lynch updated per Dr. Lynch he will look over pt and call back.
[2024-05-09 21:34] LABS: Bedside Glucose 206 mg/dL (74-106)
[2024-05-09] MEDS: Gabapentin 400 MG Capsule PO (22:48)
[2024-05-09] MEDS: Tamsulosin HCl 0.4 MG Capsule 0.8 MG PO (22:48)
[2024-05-09] MEDS: Pravastatin 40 MG Tablet PO (22:49)
[2024-05-09] MEDS: Insulin Glargine-YFGN 100 UNIT/ML Pen 8 UNIT SC (22:51)
[2024-05-09] MEDS: Latanoprost 0.005% 1 Bottle 1 DRP OPHTHALMIC (22:51)
[2024-05-10 06:49] LABS: Hematocrit 27.8 % (40-54); Hemoglobin 8.4 g/dL (13.0-16.5)
[2024-05-10 07:07] LABS: Bedside Glucose 108 mg/dL (74-106)
[2024-05-10 08:46] VITALS: BMI 25.8
[2024-05-10] MEDS: Ensure Clear 120 ML Liquid PO ×3 (10:08→16:52)
[2024-05-10] MEDS: Folic Acid 1 MG Tablet PO (10:09)
[2024-05-10] MEDS: Ferrous Sulfate 325 MG Tablet PO ×2 (10:09→16:52)
[2024-05-10] MEDS: Menthol/Lanolin/Calamine/Znox 113 GM Tube 1 APPLIC TOPICAL ×2 (10:09→21:51)
[2024-05-10] MEDS: Amiodarone 200 MG Tablet PO (10:10)
[2024-05-10] MEDS: Nystatin Powder 15gm Bottle 1 APPLIC TOPICAL ×2 (10:10→21:52)
[2024-05-10] MEDS: Magnesium Chloride 64 MG Delay Rel.Tablet PO ×2 (10:10→21:44)
[2024-05-10] MEDS: Pantoprazole Sodium 40 MG Tablet PO (10:11)
[2024-05-10] MEDS: Finasteride 5 MG Tablet PO (10:11)
[2024-05-10] MEDS: Cholecalciferol (VIT D3) 25 MCG TABLET (1,000 UNITS) PO (10:12)
[2024-05-10] MEDS: Senna/Docusate Sodium 1 Tablet 2 TABLET PO ×2 (10:12→21:44)
[2024-05-10] MEDS: LINAGLIPTIN 5 MG TABLET PO (10:12)
[2024-05-10] MEDS: Cyanocobalamin 500 MCG Tablet PO (10:13)
[2024-05-10 13:40] VITALS: BP 111/58; PULSE 57; RESP 21; TEMP 36.1; O2SAT 94
[2024-05-10 21:31] LABS: Bedside Glucose 188 mg/dL (74-106)
[2024-05-10] MEDS: Latanoprost 0.005% 1 Bottle 1 DRP OPHTHALMIC (21:41)
[2024-05-10] MEDS: Insulin Glargine-YFGN 100 UNIT/ML Pen 8 UNIT SC (21:42)
[2024-05-10] MEDS: Gabapentin 400 MG Capsule PO (21:44)
[2024-05-10] MEDS: Tamsulosin HCl 0.4 MG Capsule 0.8 MG PO (21:44)
[2024-05-10] MEDS: Pravastatin 40 MG Tablet PO (21:44)
[2024-05-10 22:19] VITALS: PULSE 49; RESP 14; O2SAT 96
[2024-05-11 06:24] LABS: Bedside Glucose 123 mg/dL (74-106)
[2024-05-11 07:11] VITALS: O2SAT 93
[2024-05-11 08:35] VITALS: BP 114/58; PULSE 59; RESP 16; TEMP 36.2; O2SAT 95
[2024-05-11] MEDS: Folic Acid 1 MG Tablet PO (08:38)
[2024-05-11] MEDS: Amiodarone 200 MG Tablet PO (08:39)
[2024-05-11] MEDS: Ferrous Sulfate 325 MG Tablet PO ×2 (08:40→17:31)
[2024-05-11] MEDS: Finasteride 5 MG Tablet PO (08:40)
[2024-05-11] MEDS: Pantoprazole Sodium 40 MG Tablet PO (08:40)
[2024-05-11] MEDS: Magnesium Chloride 64 MG Delay Rel.Tablet PO ×2 (08:40→21:59)
--- NOTE | 2024-05-11 08:40 | NURSING ---
warm compress applied to LT FA per order. elevated on pillow
[2024-05-11] MEDS: LINAGLIPTIN 5 MG TABLET PO (08:41)
[2024-05-11] MEDS: Senna/Docusate Sodium 1 Tablet 2 TABLET PO (08:41)
[2024-05-11] MEDS: Menthol/Lanolin/Calamine/Znox 113 GM Tube 1 APPLIC TOPICAL ×2 (08:41→22:05)
[2024-05-11] MEDS: Cholecalciferol (VIT D3) 25 MCG TABLET (1,000 UNITS) PO (08:41)
[2024-05-11] MEDS: Nystatin Powder 15gm Bottle 1 APPLIC TOPICAL ×2 (08:41→22:00)
[2024-05-11] MEDS: Cyanocobalamin 500 MCG Tablet PO (08:41)
[2024-05-11] MEDS: levoFLOXacin IV 750 MG in Empty Viaflex Q48 100 MG IV (08:44)
[2024-05-11] MEDS: Ensure Clear 120 ML Liquid PO ×3 (08:45→17:31)
[2024-05-11] MEDS: BACITRACIN 15 GM Tube 1 APPLIC TOPICAL ×3 (08:46→21:55)
[2024-05-11] MEDS: 0.9% Saline Lock 10 ML Syringe IV (08:50)
[2024-05-11] MEDS: 0.9% Normal Saline (250mL Bag) 250 ML 15 ML IV (09:07)
--- NOTE | 2024-05-11 09:21 | NURSING ---
pt IV to RT wrist infiltrated, new IV started to RT FA on 1st attempt. IV levaquin infusing, pt resting in chair, drowsy this AM. pt had trouble keeping eyes open. states i didnt sleep well lastnight pt had woke up d/t back pain & penis causing discomfort. bacitracin ordered this AM for irritation to the meatus of penis d/t catheter.
[2024-05-11 10:00] VITALS: BMI 26.0
--- NOTE | 2024-05-11 18:39 | NURSING ---
Friend here to see pt at this time
--- NOTE | 2024-05-11 19:47 | EX.PCM.CON.G ---
HPI Consult Data Date of Consult: 05/11/24 HPI Narrative Reason for Consultation: Anemia HPI Narrative: JASON STANLEY, is a 89-year-old male who presented to [facility] ED on 04/13/2024 with worsening shortness of breath. He was diagnosed with an acute exacerbation of HFrEF with mild hypoxia, and recently was admitted with a diagnosis of nonischemic cardiomyopathy. His EF 25%, stage II diastolic dysfunction, severe global hypokinesis, severely enlarged LA, moderate pulmonary hypertension. Per cardiology, he was scheduled to get a pacemaker placed tomorrow. Today he developed an acute recurrent upper GI bleed possibly exacerbated by Lovenox status post endoscopic treatment with hemostasis currently. I will give him 2 units of packed red blood cells with Lasix in between. Chronic iron deficiency anemia in the setting of acute blood loss anemia. ? Baseline hemoglobin around 7.5-8.5. Hemoglobin stable at baseline. Repeat iron studies on 04/14 showed continued significant iron deficiency. He was given 2 doses of IV iron 200 mg on 04/16 and 04/17. He had recurrent GI bleeding. He was treated endoscopically. Hemoglobin is improved up to 7.5. His hemoglobin dropped down to 6.2 and he agreed to undergo an upper endoscopy. Grade I varices were found in the upper third of the esophagus. They were 5 mm in largest diameter. One non-bleeding cratered gastric ulcer with pigmented material was found on the greater curvature of the stomach. The lesion was 10 mm in largest dimension. Coagulation for bleeding prevention using heater probe was successful. Estimated blood loss was minimal. The duodenal bulb was normal. Impression: - Grade I esophageal varices. - Non-bleeding gastric ulcer with pigmented material. Treated with a heater probe. - Normal duodenal bulb. - No specimens collected. I was called back to [facility] because his hemoglobin dropped back down. [facility] Medical History (Updated 05/08/24 @ 13:[address] Amanda Davis MD) Atrial fibrillation with slow ventricular response Presence of cardiac pacemaker Hypothyroidism Non-smoker Peripheral vascular disease Prostate cancer Lumbar stenosis Gout DDD (degenerative disc disease) Carotid artery stenosis Chronic diastolic (congestive) heart failure Non-rheumatic aortic stenosis Atherosclerosis of coronary artery of [place] heart without angina pectoris Secondary pulmonary arterial hypertension Essential (primary) hypertension Left bundle branch block Stool guaiac positive Iron deficiency anemia Personal history of colonic polyps History of malignant neoplasm of colon Dysphasia Chronic kidney disease, stage III (moderate) Thoracic aortic aneurysm without rupture Colon cancer, ascending Dyslipidemia Type II diabetes mellitus Home Medications ?Medication ?Instructions ?Recorded ?Last Taken ?Type pravastatin 40 mg tablet 40 mg PO QHS cholesterol 05/14/16 04/22/24 History probenecid 500 mg tablet 500 mg PO DAILY gout 05/14/16 04/23/24 08:15 History cholecalciferol (vitamin D3) 25 1,000 unit PO DAILY vitamin 07/16/16 04/23/24 08:25 History mcg (1,000 unit) tablet cyanocobalamin (vitamin B-12) 1,000 mcg PO DAILY supplement 07/16/16 04/23/24 08:25 History 1,000 mcg tablet metformin 500 mg 24 hr 500 mg PO DAILY diabetes 07/16/16 04/14/24 History tablet,extended release (gastric retention) sitagliptin phosphate 50 mg tablet 50 mg PO DAILY diabetes 06/25/19 04/23/24 08:25 History docusate sodium 100 mg capsule 100 mg PO BID PRN sool softener 09/11/19 Unknown History (Colace) ferrous sulfate 325 mg (65 mg 325 mg PO BID iron supplement 09/11/19 04/23/24 08:25 History iron) tablet (Feosol) folic acid 400 mcg tablet 800 mcg PO DAILY vitamin 09/11/19 04/12/24 History insulin glargine 100 unit/mL (3 8 unit subcut QHS diabetes 09/11/19 04/22/24 History mL) subcutaneous pen blood sugar diagnostic (True 03/18/24 Unknown History Metrix Glucose Test Strip) gabapentin 400 mg capsule 400 mg PO QHS nerve pain 03/18/24 04/22/24 History latanoprost 0.005 % eye drops 1 drp ophthalmic (eye) QHS eye 03/18/24 04/22/24 History health pen needle, diabetic 31 gauge x 03/18/24 Unknown History 01/31 (Droplet Pen Needle) potassium chloride 20 mEq 20 meq PO DAILY supplement 03/18/24 04/23/24 08:15 History tablet,extended release(part/cryst) furosemide 40 mg tablet (Lasix) 40 mg PO BIDCM Edema #120 tabs 03/20/24 04/12/24 Rx hydralazine 50 mg tablet 50 mg PO 4X/DAY BP 04/02/24 04/23/24 14:25 History magnesium chloride 64 mg 64 mg PO BID Supplement #0 tabs 04/23/24 04/23/24 08:30 Rx (magnesium chloride) tablet,delayed release (Mag 64) acetaminophen 500 mg tablet 1,000 mg (2 x 500 mg) PO Q6H PRN 05/05/24 Unknown Rx PRN Pain Score 1-10 #0 tabs amiodarone 200 mg tablet 200 mg PO DAILY 30 days #30 tabs 05/05/24 Unknown Rx amlodipine 5 mg tablet 5 mg PO HS 30 days #30 tabs 05/05/24 Unknown Rx finasteride 5 mg tablet 5 mg PO DAILY 30 days #30 tabs 05/05/24 Unknown Rx pantoprazole 40 mg tablet,delayed 40 mg PO DAILY 30 days #30 tabs 05/05/24 Unknown Rx release tamsulosin 0.4 mg capsule 0.8 mg (2 x 0.4 mg) PO QHS 30 days 05/05/24 Unknown Rx #60 caps nitrofurantoin 100 mg PO BID 5 days #10 caps 05/07/24 Unknown Rx monohydrate/macrocrystals 100 mg capsule Allergy/AdvReac Type Severity Reaction Status Date / Time Milk Containing Products AdvReac NEEDS Verified 04/13/24 17:29 (Dairy) (Milk Containing FOLLOW-UP Products) quinapril (From Accupril) AdvReac Other Verified 04/13/24 17:29 Family History Mother Colon cancer Heart disease Hypertension CAD (coronary artery disease) Father Cancer prostate CVA (cerebral vascular accident) CAD (coronary artery disease) Brother CAD (coronary artery disease) CABG Brother CAD (coronary artery disease) CABG Surgical History History of left heart catheterization (07/2001) H/O colectomy S/P colonoscopy S/P cataract extraction Status post colectomy Social History household members: spouse Smoking Status: Former smoker how long ago did patient quit smokin years ago alcohol intake: never substance use type: does not use ROS Constitutional Constitutional: Reports fatigue; Denies chills or fever(s) Eyes Eyes: Denies blurry vision ENT HEENT: Denies abnormal hearing Cardiovascular Cardiovascular: Reports orthopnea; Denies chest pain Respiratory/Chest Respiratory/Chest: Reports shortness of breath at rest; Denies cough or wheezing Gastrointestinal Gastrointestinal: Denies abdominal pain Genitourinary Genitourinary: Denies dysuria Musculoskeletal Musculoskeletal: Denies back pain Integumentary Integumentary: Denies wounds Neurologic Neurologic: Denies abnormal speech Psychiatric Psychiatric: Denies anxiety Physical Exam Narrative General: Alert and oriented x3, NAD. HEENT: Normocephalic, atraumatic. Mucous membrane moist without erythema. PERRLA, EOMI. decreased hearing. Neck: Supple, no JVD. Trachea is midline. No thyromegaly or lymphadenopathy. Cardiovascular: Normal S1, S2. There is 3/6 systolic murmur best heard in the left upper sternal border. Respiratory: Lungs are clear to auscultation bilaterally. No wheezing, rhonchi, or rales. Abdomen: Normal bowel sounds, soft, nontender, no guarding or rebound, no organomegaly. Extremities: 2+ lower extremity edema. No clubbing or cyanosis. Musculoskeletal: Full passive range of motion, no joint swelling. Psychiatric: Normal mood and affect. Skin: Warm and dry, no rash. Neurologic: Cranial nerve II to XII are grossly intact. No focal neurologic deficits. Lab / Micro Data 05/10/24 06:25 05/09/24 05:11 Labs: Laboratory Results - last 24 hr 05/10/24 21:02: POC Glucose 188 H 05/11/24 06:03: POC Glucose 123 H Assessment & Plan Assessment/Plan (1) Nonsustained ventricular tachycardia: (2) Non-ischemic cardiomyopathy: (3) Atrial fibrillation: QUALIFIERS: Atrial fibrillation type: permanent Qualified Code(s): I48.21 - Permanent atrial fibrillation (4) CHF exacerbation: QUALIFIERS: Heart failure type: unspecified Qualified Code(s): I50.9 - Heart failure, unspecified PLAN: Plan Patient is an 89-year-old male who presented to [facility] ED on with worsening shortness of breath. Patient was diagnosed with acute congestive heart failure with reduced ejection fraction. Hospital stay complicated by development of upper GI bleed for which patient underwent emergency EGD Acute upper GI bleed ? Patient underwent EGD by Dr. Pearce on 04/19/2024. About 500 mL of bright red blood was aspirated from his stomach. There is also a lot of coffee ground bloody material in his stomach. 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 This lesion was treated with 6 of epinephrine followed by cautery and Hemospray. ? Patient hemoglobin down to 7 plan is for patient to be transfused with 1 unit PRBC. Patient scheduled to undergo repeat EGD Charges/Coding Visit Charges Inpatient E&M: 58906 [facility] Init L2
[2024-05-11 21:31] LABS: Bedside Glucose 184 mg/dL (74-106)
[2024-05-11] MEDS: Tamsulosin HCl 0.4 MG Capsule 0.8 MG PO (21:58)
[2024-05-11] MEDS: Gabapentin 400 MG Capsule PO (21:58)
[2024-05-11] MEDS: Pravastatin 40 MG Tablet PO (21:59)
[2024-05-11] MEDS: Insulin Glargine-YFGN 100 UNIT/ML Pen 8 UNIT SC (21:59)
[2024-05-11] MEDS: Latanoprost 0.005% 1 Bottle 1 DRP OPHTHALMIC (22:00)
--- NOTE | 2024-05-11 22:12 | PCM.PN.REN ---
Subjective Subjective Cr worse Objective Data Objective Data Vital Signs: Vital Signs Temp Pulse Resp BP Pulse Ox O2 Del Method O2 Flow Rate 97.2 F L 59 L 16 114/58 L 95 Nasal Cannula 2 05/11/24 08:35 05/11/24 08:35 05/11/24 08:35 05/11/24 08:35 05/11/24 08:35 05/11/24 08:35 05/11/24 08:35 FiO2 21 05/07/24 21:36 Oxygen Flow Rate (L/min) 2 Oxygen Delivery Method Nasal Cannula Weight: 89.584 kg Body Mass Index (BMI) 26.0 Intake & Output: Intake and Output for Last 24 Hours 05/09/24 05/10/24 05/11/24 23:59 23:59 23:59 Intake Total 1771.25 / 1771.25 720 / 720 1314.25 / 1314.25 Output Total 400 / 400 700 / 700 1525 / 1525 Balance 1371.25 / 1371.25 20 -210.75 / -210.75 Lab / Micro Data 05/10/24 06:25 05/09/24 05:11 Labs: Laboratory Results - last 24 hr 05/11/24 06:03: POC Glucose 123 H 05/11/24 21:12: POC Glucose 184 H Micro: Microbiology 05/10/24 07:20 Stool Stool Occult Blood (DIONNE) - Final Occult Blood Positive 05/06/24 10:35 Urine, Catheterized Urine Culture - Final Presumptive E. coli 05/08/24 05:00 Nasal Secretion SARS-CoV-2 Antigen (Rapid) - Final 05/01/24 06:10 Nasal Secretion SARS-CoV-2 Antigen (Rapid) - Final 04/24/24 11:00 Nasal Secretion SARS-CoV-2 Antigen (Rapid) - Final Physical Exam Narrative General: Alert and oriented x3, NAD. HEENT: Normocephalic, atraumatic. Mucous membrane moist without erythema. PERRLA, EOMI. decreased hearing. Neck: Supple, no JVD. Trachea is midline. No thyromegaly or lymphadenopathy. Cardiovascular: Normal S1, S2. There is 3/6 systolic murmur best heard in the left upper sternal border. Respiratory: Lungs are clear to auscultation bilaterally. No wheezing, rhonchi, or rales. Abdomen: Normal bowel sounds, soft, nontender, no guarding or rebound, no organomegaly. Extremities: 2+ lower extremity edema. No clubbing or cyanosis. Musculoskeletal: Full passive range of motion, no joint swelling. Psychiatric: Normal mood and affect. Skin: Warm and dry, no rash. Neurologic: Cranial nerve II to XII are grossly intact. No focal neurologic deficits. Assessment & Plan Assessment/Plan (1) JENNIFER (acute kidney injury): (2) Chronic kidney disease, stage 3b: (3) Hyponatremia: (4) HFrEF (heart failure with reduced ejection fraction): PLAN: Plan Impression/Plan: The patient is a 89-year-old man with past history of type 2 diabetes mellitus, hypertension, atrial fibrillation, nonischemic cardiomyopathy with HFrEF (EF 25%), BPH, and hyperlipidemia. Patient was admitted to [facility] hospital between 04/13/2024 until 04/23/2024 with acute decompensated heart failure as well as GI bleed. Patient has been at TCU for rehabilitation since 04/23/2024. Nephrology is asked see patient on 05/08/2024 because of JENNIFER on CKD. Acute kidney injury on chronic kidney disease stage G3b. Baseline serum creatinine has been around 1.30 to 1.50 mg/dL. I suspect patient has CKD from diabetic kidney disease as well as cardiorenal syndrome. Serum creatinine has increased to 2.49 mg/dL on 05/08/2024 from previous baseline. Last available serum creatinine from 05/01/2024 was 1.41 mg/dL. Cr worsening diuretics are on hold Bp is ok liz draining urine ok no supra pubic fullness if worsening will have to give some fluids back
[2024-05-12 07:11] LABS: Bedside Glucose 104 mg/dL (74-106)
[2024-05-12 09:15] VITALS: BP 116/61; PULSE 53; RESP 18; TEMP 36.2; O2SAT 94
[2024-05-12] MEDS: Ensure Clear 120 ML Liquid PO ×3 (09:18→16:33)
[2024-05-12] MEDS: BACITRACIN 15 GM Tube 1 APPLIC TOPICAL ×3 (09:18→22:20)
[2024-05-12] MEDS: Amiodarone 200 MG Tablet PO (09:19)
[2024-05-12] MEDS: Magnesium Chloride 64 MG Delay Rel.Tablet PO ×2 (09:19→22:18)
[2024-05-12] MEDS: Senna/Docusate Sodium 1 Tablet 2 TABLET PO ×2 (09:19→22:19)
[2024-05-12] MEDS: Pantoprazole Sodium 40 MG Tablet PO (09:19)
[2024-05-12] MEDS: LINAGLIPTIN 5 MG TABLET PO (09:19)
[2024-05-12] MEDS: Folic Acid 1 MG Tablet PO (09:19)
[2024-05-12] MEDS: Ferrous Sulfate 325 MG Tablet PO ×2 (09:19→16:33)
[2024-05-12 09:20] VITALS: O2SAT 98; BMI 26.0
[2024-05-12] MEDS: Menthol/Lanolin/Calamine/Znox 113 GM Tube 1 APPLIC TOPICAL ×2 (09:20→22:19)
[2024-05-12] MEDS: Cholecalciferol (VIT D3) 25 MCG TABLET (1,000 UNITS) PO (09:20)
[2024-05-12] MEDS: Finasteride 5 MG Tablet PO (09:20)
[2024-05-12] MEDS: Cyanocobalamin 500 MCG Tablet PO (09:21)
[2024-05-12] MEDS: Nystatin Powder 15gm Bottle 1 APPLIC TOPICAL ×2 (09:21→22:20)
[2024-05-12 10:00] VITALS: PULSE 54; RESP 18; O2SAT 95
[2024-05-12 22:13] LABS: Bedside Glucose 183 mg/dL (74-106)
[2024-05-12] MEDS: Latanoprost 0.005% 1 Bottle 1 DRP OPHTHALMIC (22:18)
[2024-05-12] MEDS: Tamsulosin HCl 0.4 MG Capsule 0.8 MG PO (22:18)
[2024-05-12] MEDS: Insulin Glargine-YFGN 100 UNIT/ML Pen 8 UNIT SC (22:19)
[2024-05-12] MEDS: Gabapentin 400 MG Capsule PO (22:19)
[2024-05-12] MEDS: Pravastatin 40 MG Tablet PO (22:19)
[2024-05-12] MEDS: Acetaminophen 500 MG Tablet 1000 MG PO (22:22)
[2024-05-13] MEDS: BACITRACIN 15 GM Tube 1 APPLIC TOPICAL ×2 (05:28→21:22)
[2024-05-13 06:58] LABS: Bedside Glucose 125 mg/dL (74-106)
[2024-05-13 08:42] VITALS: O2SAT 93
[2024-05-13] MEDS: levoFLOXacin IV 750 MG in Empty Viaflex Q48 100 MG IV (09:54)
[2024-05-13] MEDS: 0.9% Saline Lock 10 ML Syringe IV (09:54)
[2024-05-13 10:00] VITALS: BMI 26.0
[2024-05-13] MEDS: Nystatin Powder 15gm Bottle 1 APPLIC TOPICAL ×2 (10:00→21:14)
[2024-05-13] MEDS: Menthol/Lanolin/Calamine/Znox 113 GM Tube 1 APPLIC TOPICAL ×2 (10:00→21:15)
[2024-05-13 10:41] VITALS: BP 117/58; PULSE 50; RESP 18; TEMP 36.4; O2SAT 93
--- NOTE | 2024-05-13 13:05 | NURSING ---
Patient off unit for endoscopy procedure.
[2024-05-13] MEDS: Pantoprazole Sodium 40 MG Tablet PO (16:34)
[2024-05-13] MEDS: Ferrous Sulfate 325 MG Tablet PO (16:34)
[2024-05-13] MEDS: Acetaminophen 500 MG Tablet 1000 MG PO ×2 (16:37→23:34)
[2024-05-13] MEDS: Latanoprost 0.005% 1 Bottle 1 DRP OPHTHALMIC (21:14)
[2024-05-13] MEDS: Senna/Docusate Sodium 1 Tablet 2 TABLET PO (21:19)
[2024-05-13] MEDS: Pravastatin 40 MG Tablet PO (21:19)
[2024-05-13] MEDS: Insulin Glargine-YFGN 100 UNIT/ML Pen 8 UNIT SC (21:19)
[2024-05-13] MEDS: Magnesium Chloride 64 MG Delay Rel.Tablet PO (21:19)
[2024-05-13] MEDS: Gabapentin 400 MG Capsule PO (21:19)
[2024-05-13] MEDS: Tamsulosin HCl 0.4 MG Capsule 0.8 MG PO (21:19)
[2024-05-13 21:21] LABS: Bedside Glucose 162 mg/dL (74-106)
[2024-05-14] MEDS: BACITRACIN 15 GM Tube 1 APPLIC TOPICAL ×3 (05:13→22:20)
[2024-05-14 06:58] LABS: Bedside Glucose 90 mg/dL (74-106)
[2024-05-14 07:29] VITALS: O2SAT 97
[2024-05-14] MEDS: Ensure Clear 120 ML Liquid PO ×3 (09:20→17:50)
[2024-05-14] MEDS: Ferrous Sulfate 325 MG Tablet PO ×2 (09:21→17:50)
[2024-05-14] MEDS: Amiodarone 200 MG Tablet PO (09:22)
[2024-05-14] MEDS: Folic Acid 1 MG Tablet PO (09:22)
[2024-05-14] MEDS: Menthol/Lanolin/Calamine/Znox 113 GM Tube 1 APPLIC TOPICAL ×2 (09:22→22:21)
[2024-05-14] MEDS: Magnesium Chloride 64 MG Delay Rel.Tablet PO ×2 (09:23→22:20)
[2024-05-14] MEDS: Polyethylene Glycol 3350 17 GM PACKET PO (09:23)
[2024-05-14] MEDS: Finasteride 5 MG Tablet PO (09:24)
[2024-05-14] MEDS: Nystatin Powder 15gm Bottle 1 APPLIC TOPICAL ×2 (09:24→22:21)
[2024-05-14] MEDS: LINAGLIPTIN 5 MG TABLET PO (09:24)
[2024-05-14] MEDS: Senna/Docusate Sodium 1 Tablet 2 TABLET PO ×2 (09:25→22:20)
[2024-05-14] MEDS: Cholecalciferol (VIT D3) 25 MCG TABLET (1,000 UNITS) PO (09:25)
[2024-05-14] MEDS: Cyanocobalamin 500 MCG Tablet PO (09:25)
[2024-05-14] MEDS: Pantoprazole Sodium 40 MG Tablet PO (09:29)
[2024-05-14] MEDS: Acetaminophen 500 MG Tablet 1000 MG PO ×2 (09:29→22:23)
[2024-05-14 11:14] VITALS: BP 103/53; PULSE 53; RESP 16; TEMP 36.4; O2SAT 90
[2024-05-14 22:09] LABS: Bedside Glucose 189 mg/dL (74-106)
[2024-05-14] MEDS: Gabapentin 400 MG Capsule PO (22:19)
[2024-05-14] MEDS: Insulin Glargine-YFGN 100 UNIT/ML Pen 8 UNIT SC (22:19)
[2024-05-14] MEDS: Pravastatin 40 MG Tablet PO (22:20)
[2024-05-14] MEDS: Latanoprost 0.005% 1 Bottle 1 DRP OPHTHALMIC (22:20)
[2024-05-14] MEDS: Tamsulosin HCl 0.4 MG Capsule 0.8 MG PO (22:20)
[2024-05-14] MEDS: 0.9% Saline Lock 10 ML Syringe IV (22:24)
[2024-05-15] VITALS: PULSE 52; RESP 18
[2024-05-15] MEDS: BACITRACIN 15 GM Tube 1 APPLIC TOPICAL ×3 (05:01→20:06)
[2024-05-15 05:58] LABS: Absolute Lymphocyte Count 0.81 X10^3/uL (0.83-4.51); Absolute Neutrophil Count 2.9 X10^3/uL (2.0-7.7); Basophil# 0.03 X10^3/uL; Basophil% 0.7 % (0-1); Eosinophil# 0.14 X10^3/uL; Eosinophils% 3.1 % (0-5); Hematocrit 28.5 % (40-54); Hemoglobin 8.3 g/dL (13.0-16.5); Lymphocyte # 0.81 X10^3/ul (0.83-4.51); Mean Corp Hgb Conc 29.1 g/dL (32-36); Mean Corpuscular Hgb 27.3 pg (27.0-32.0); Mean Corpuscular Volume 93.8 fL (80-94); Mean Platelet Vol. 9.8 fl (6.2-12.0); Monocyte% 11.1 % (0-10); NRBC Flagged by Analyzer 0 % (0-5); Neutrophil # 2.94 X10^3/uL (2.7-7.7); Neutrophil % 65.5 % (47-70); Platelet Count 146 K/mm3 (150-450); RBC Distribution Width CV 17.3 % (11.6-14.6); RBC Distribution Width SD 59.3 fl (35.1-43.9); Red Blood Count 3.04 M/mm3 (4.6-6.2); White Blood Count 4.5 K/mm3 (4.4-11.0)
[2024-05-15 06:22] LABS: Anion Gap 6 (5-15); BUN 49 mg/dL (7-18); BUN/Creat Ratio 20.7 RATIO (10-20); Calcium,Total 8.5 mg/dL (8.5-10.1); Chloride 104 mmol/L (98-107); Creatinine, Serum 2.37 mg/dL (0.70-1.30); EST Glomerular Filtration Rate 28 mL/min (>60); Est Glom Filt Rate - Afr Amer 33 mL/min (>60); Estimated Creatinine Clearance 23.88 ml/min; Glucose 141 mg/dL (74-106); Potassium 5.2 mmol/L (3.5-5.1); Sodium Level 132 mmol/L (136-145)
[2024-05-15 06:49] LABS: Bedside Glucose 110 mg/dL (74-106)
[2024-05-15 07:53] VITALS: O2SAT 96
--- NOTE | 2024-05-15 08:29 | PN.TCU_ITS ---
Subjective Subjective Resident seen, examined for regulatory visit. Resident has no new complaints, he is progressing with therapy. 05/13/2024 Dr. Pearce EGD: Impressions : - Grade I esophageal varices. - Normal middle third of esophagus and lower third of esophagus. - Oozing gastric ulcer with pigmented material. Treated with a heater probe. - Non-bleeding gastric ulcer with no stigmata of bleeding. Biopsied. - Normal second portion of the duodenum. Recommendations : - Return patient to referring hospital for ongoing care. - Resume previous diet. - Continue present medications. - No aspirin, ibuprofen, naproxen, or other non-steroidal anti-inflammatory drugs for 7 days after biopsy. - Use Prilosec (omeprazole) 40 mg PO BID for 12 weeks. Objective Data Objective Data Vital Signs: Vital Signs Temp Pulse Resp BP Pulse Ox O2 Del Method O2 Flow Rate 97.5 F L 52 L 18 103/53 L 96 Nasal Cannula 3 05/14/24 11:14 05/15/24 00:00 05/15/24 00:00 05/14/24 11:14 05/15/24 07:53 05/15/24 07:53 05/15/24 07:53 FiO2 95 05/15/24 00:00 Oxygen Flow Rate (L/min) 3 Oxygen Delivery Method Nasal Cannula Weight: 89.494 kg Body Mass Index (BMI) 26.0 Intake & Output: Intake and Output for Last 24 Hours 05/13/24 05/14/24 05/15/24 23:59 23:59 23:59 Intake Total 390 / 390 960 / 960 Output Total 2024 350 / 350 250 / 250 Balance -1635 / -1635 610 / 610 -250 / -250 Lab / Micro Data 05/15/24 05:21 05/15/24 05:21 Labs: Laboratory Results - last 24 hr 05/14/24 21:31: POC Glucose 189 H 05/15/24 05:21: WBC 4.5, RBC 3.04 L, Hgb 8.3 L, Hct 28.5 L, MCV 93.8, MCH 27.3, MCHC 29.1 L, RDW Std Deviation 59.3 H, RDW Coeff of Rachelle 17.3 H, Plt Count 146 L, MPV 9.8, Immature Gran % (Auto) 1.600 H, Neut % (Auto) 65.5, Lymph % (Auto) 18.0 L, [place] % (Auto) 11.1 H, Eos % (Auto) 3.1, Baso % (Auto) 0.7, Absolute Neuts (auto) 2.9, Absolute Lymphs (auto) 0.81 L, Nucleated RBC % 0, Sodium 132 L, P otassium 5.2 H, Chloride 104, Carbon Dioxide 22.0, Anion Gap 6, BUN 49 H, C reatinine 2.37 H, Estim Creat Clear Calc 23.88, Est GFR (MDRD) Af Amer 33 L, Est GFR (MDRD) Non-Af 28 L, BUN/Creatinine Ratio 20.7 H, Glucose 141 H, Calcium 8.5 05/15/24 06:29: POC Glucose 110 H Micro: Microbiology 05/15/24 05:30 Nasal Secretion SARS-CoV-2 Antigen (Rapid) - Final 05/10/24 07:20 Stool Stool Occult Blood (DIONNE) - Final Occult Blood Positive 05/06/24 10:35 Urine, Catheterized Urine Culture - Final Presumptive E. coli 05/08/24 05:00 Nasal Secretion SARS-CoV-2 Antigen (Rapid) - Final 05/01/24 06:10 Nasal Secretion SARS-CoV-2 Antigen (Rapid) - Final 04/24/24 11:00 Nasal Secretion SARS-CoV-2 Antigen (Rapid) - Final Physical Exam Const alert General Appearance: cooperative HEENT normocephalic Eyes PERRL and EOMs intact bilaterally Neck supple, no JVD and no carotid bruits Resp normal respiratory effort, normal air movement and clear to auscultation bilaterally Cardio regular rate and regular rhythm GI normal to inspection, nondistended, normoactive bowel sounds, non-tender and non-distended Extremity normal capillary refill General Extremity: Negative for edema Skin no rashes or lesions noted General Skin Exam: no breakdown Psych affect normal Appearance: appropriate Assessment & Plan Assessment/Plan (1) Debility: (2) Acute respiratory failure with hypoxia: (3) Acute HFrEF (heart failure with reduced ejection fraction): (4) Pneumonia: (5) Gastric ulcer: (6) Angiodysplasia of stomach: (7) Upper gastrointestinal bleed: (8) Acute blood loss anemia: (9) Atrial fibrillation with slow ventricular response: (10) Bradycardia: (11) Presence of cardiac pacemaker: (12) Hyperlipidemia: (13) Gout: (14) Type 2 diabetes mellitus with hyperglycemia: (15) Essential (primary) hypertension: (16) BPH (benign prostatic hyperplasia): (17) Iron deficiency anemia: QUALIFIERS: Iron deficiency anemia type: other iron deficiency Q ualified Code(s): D50.8 - Other iron deficiency anemias PLAN: Plan 89 year old male with below past medical history hospitalized for acute respiratory failure with hypoxia 2/2 acute HFrEF, pneumonia ruled out, complicated by UGIB, bradycardia requiring permanent pacemaker placement, admitted to TCU with debility, here for rehabilitation, strengthening, prior to discharge home with . * Debility - PT/OT. * Pain - Tylenol 1000mg q6 prn pain (1-10), Tramadol 50mg q6 prn. * Bowel - Miralax 17gm daily, senna/colace 2 tablet bid, Magnesium citrate 300ml daily prn. * Adult immunization - Administer pneumonia vaccine, covid vaccine, flu vaccine as appropriate. * DVT prophylaxis - Hold, GI bleed. * Atrial fibrillation - Amiodarone 200mg daily, hold anticoagulation 2/2 falls. * Vitamin D deficiency - D3 25mcg daily. * Vitamin B12 deficiency - B12 1000mcg daily. * Iron deficiency anemia - Ferrous sulfate 325mg bidcm. * Folate deficiency - Folic acid 1mg daily. * Acute on chronic kidney failure - appreciate Nephrology recommendations, normal saline 75cc/hour, bmp tomorrow, renal function improving. * Diabetic polyneuropathy - Gabapentin 400mg qhs. * Cough - Robitussin DM 2 tablets bid. * Diabetes Mellitus II - Tradjenta 5mg daily, Glargine 8 units qhs. * Shortness of breath - Duoneb 3ml q6h. * Glaucoma - Latanoprost 1gtt ou qhs. * Hypomagnesemia - Magnesium chloride 64mg bid. * Skin irritation - Calmoseptine topical bid, Bacitracin topical tid. * Gastric ulcer - Pantoprazole 40mg twice daily. * Hypokalemia - KCL 20meq daily. * Hyperlipidemia - Pravastatin 40mg qhs. * Gout - Probenecid 500mg daily. * BPH - Finasteride 5mg daliy, Tamsulosin 0.8mg qhs. * Hyperkalemia - Kayexalate 15gm po x 1 dose, bmp in AM. * Tinea Corporis - Nystatin powder topical bid.
[2024-05-15] MEDS: Ferrous Sulfate 325 MG Tablet PO ×2 (08:48→17:16)
[2024-05-15] MEDS: Ensure Clear 120 ML Liquid PO ×3 (08:48→17:16)
[2024-05-15] MEDS: Senna/Docusate Sodium 1 Tablet 2 TABLET PO (08:49)
[2024-05-15] MEDS: Folic Acid 1 MG Tablet PO (08:49)
[2024-05-15] MEDS: Menthol/Lanolin/Calamine/Znox 113 GM Tube 1 APPLIC TOPICAL ×2 (08:49→20:09)
[2024-05-15] MEDS: Cyanocobalamin 500 MCG Tablet PO (08:49)
[2024-05-15] MEDS: Magnesium Chloride 64 MG Delay Rel.Tablet PO ×2 (08:49→20:10)
[2024-05-15] MEDS: Amiodarone 200 MG Tablet PO (08:49)
[2024-05-15] MEDS: Finasteride 5 MG Tablet PO (08:49)
[2024-05-15] MEDS: LINAGLIPTIN 5 MG TABLET PO (08:49)
[2024-05-15] MEDS: Cholecalciferol (VIT D3) 25 MCG TABLET (1,000 UNITS) PO (08:49)
[2024-05-15] MEDS: Pantoprazole Sodium 40 MG Tablet PO ×2 (08:49→20:12)
[2024-05-15] MEDS: Polyethylene Glycol 3350 17 GM PACKET PO (08:49)
[2024-05-15] MEDS: Nystatin Powder 15gm Bottle 1 APPLIC TOPICAL ×2 (08:50→20:07)
[2024-05-15] MEDS: 0.9% Normal Saline (1000mL) 1,000 ML 75 ML IV ×2 (08:58→22:08)
--- NOTE | 2024-05-15 10:35 | CASEMGMT ---
Social Work 1037- YAO received a call from the patient's daughter, Kaylee inquiring about discharging patient early. Kaylee informed AYO that she received a call from patient's insurance stating that the patient's insurance next review is on Saturday and if patient receives [facility] discharge would be arranged as 05/21. Patient's daughter is hoping to discharge patient prior to May 21, if he is medically appropriate. SW expressed concern for discharging prematurely due to desaturation with therapy on 05/14/2024 to 85 on 3L. AYO informed Kaylee that SW will follow up with therapy regarding updates. SW spoke with therapy to discuss discharge. Patient is destating to 90 with 3L oxygen while ambulating 50ft with therapy. Patient has deconditioned over the past few days. SW met with patient to discuss discharge. Patient informed SW that he feels better today, but he still needs assistance. Patient informed SW that he would like to discharge home with family assistance. Patient states that he will have assistance from his son, daughter, and grandson. SW discussed discharge with physician, Dr. Dupont, patient will require liz and home O2 evaluation. [id number] contacted patient's daughter, Kaylee to discuss potential discharge. SW provided update from therapy and Physician discussion recommending for liz and home O2. Patient's daughter, Kaylee stated yeah, i think he will need a few more days in rehab. SW informed Kaylee that if she still wants to discharge prior to may, we can follow up on patient progress on Saturday. Kaylee informed AYO that patient will need home health care. Referral submitted to [facility] for home health PT/OT/ST/SN. AYO will follow up with patient and family on 05/18/2024 ALYSSIA Roy
[2024-05-15] MEDS: Sodium Polystyrene Sulfonate 15 GM/60 ML UDC PO (10:40)
[2024-05-15 10:48] VITALS: BP 105/50; PULSE 50; RESP 20; TEMP 36.6; O2SAT 96
[2024-05-15] MEDS: Tamsulosin HCl 0.4 MG Capsule 0.8 MG PO (20:10)
[2024-05-15] MEDS: Pravastatin 40 MG Tablet PO (20:11)
[2024-05-15] MEDS: Latanoprost 0.005% 1 Bottle 1 DRP OPHTHALMIC (20:15)
[2024-05-15] MEDS: Insulin Glargine-YFGN 100 UNIT/ML Pen 8 UNIT SC (20:44)
[2024-05-15] MEDS: Acetaminophen 500 MG Tablet 1000 MG PO (20:44)
[2024-05-15] MEDS: Gabapentin 400 MG Capsule PO (20:44)
[2024-05-15 21:06] LABS: Bedside Glucose 201 mg/dL (74-106)
[2024-05-16] MEDS: BACITRACIN 15 GM Tube 1 APPLIC TOPICAL ×3 (06:38→21:17)
[2024-05-16] MEDS: Acetaminophen 500 MG Tablet 1000 MG PO ×2 (06:41→21:13)
[2024-05-16 06:45] LABS: Bedside Glucose 139 mg/dL (74-106)
[2024-05-16 07:10] VITALS: O2SAT 96
[2024-05-16] MEDS: Ferrous Sulfate 325 MG Tablet PO ×2 (09:23→09:24)
[2024-05-16] MEDS: Folic Acid 1 MG Tablet PO (09:23)
[2024-05-16] MEDS: LINAGLIPTIN 5 MG TABLET PO (09:24)
[2024-05-16] MEDS: Senna/Docusate Sodium 1 Tablet 2 TABLET PO ×2 (09:24→21:14)
[2024-05-16] MEDS: Cholecalciferol (VIT D3) 25 MCG TABLET (1,000 UNITS) PO (09:24)
[2024-05-16] MEDS: Polyethylene Glycol 3350 17 GM PACKET PO (09:24)
[2024-05-16] MEDS: Cyanocobalamin 500 MCG Tablet PO (09:24)
[2024-05-16] MEDS: Nystatin Powder 15gm Bottle 1 APPLIC TOPICAL ×2 (09:24→21:16)
[2024-05-16] MEDS: Finasteride 5 MG Tablet PO (09:24)
[2024-05-16] MEDS: Magnesium Chloride 64 MG Delay Rel.Tablet PO ×2 (09:24→21:15)
[2024-05-16] MEDS: Pantoprazole Sodium 40 MG Tablet PO ×2 (09:24→21:15)
[2024-05-16] MEDS: Menthol/Lanolin/Calamine/Znox 113 GM Tube 1 APPLIC TOPICAL ×2 (09:25→21:16)
[2024-05-16] MEDS: Amiodarone 200 MG Tablet PO (09:25)
[2024-05-16 09:54] LABS: Anion Gap 4 (5-15); BUN 44 mg/dL (7-18); BUN/Creat Ratio 18.6 RATIO (10-20); Calcium,Total 8.2 mg/dL (8.5-10.1); Chloride 107 mmol/L (98-107); Creatinine, Serum 2.36 mg/dL (0.70-1.30); EST Glomerular Filtration Rate 28 mL/min (>60); Est Glom Filt Rate - Afr Amer 34 mL/min (>60); Estimated Creatinine Clearance 23.98 ml/min; Glucose 138 mg/dL (74-106); Potassium 4.7 mmol/L (3.5-5.1); Sodium Level 134 mmol/L (136-145)
[2024-05-16 10:29] VITALS: BP 94/50; PULSE 50; RESP 20; TEMP 36.8; O2SAT 92
[2024-05-16] MEDS: 0.9% Normal Saline (1000mL) 1,000 ML 75 ML IV (12:06)
[2024-05-16 15:18] VITALS: BMI 26.8
[2024-05-16] MEDS: Gabapentin 400 MG Capsule PO (21:12)
[2024-05-16] MEDS: Tamsulosin HCl 0.4 MG Capsule 0.8 MG PO (21:15)
[2024-05-16] MEDS: Pravastatin 40 MG Tablet PO (21:16)
[2024-05-16] MEDS: Latanoprost 0.005% 1 Bottle 1 DRP OPHTHALMIC (21:17)
[2024-05-16] MEDS: Insulin Glargine-YFGN 100 UNIT/ML Pen 8 UNIT SC (21:18)
[2024-05-16 21:20] VITALS: BP 136/68; PULSE 50; O2SAT 98
[2024-05-16 21:23] LABS: Bedside Glucose 165 mg/dL (74-106)
[2024-05-16 21:30] VITALS: O2SAT 95
[2024-05-17] MEDS: 0.9% Normal Saline (1000mL) 1,000 ML 75 ML IV (01:28)
[2024-05-17 05:34] LABS: Anion Gap 5 (5-15); BUN 40 mg/dL (7-18); BUN/Creat Ratio 20.1 RATIO (10-20); Calcium,Total 8.1 mg/dL (8.5-10.1); Chloride 109 mmol/L (98-107); Creatinine, Serum 1.99 mg/dL (0.70-1.30); EST Glomerular Filtration Rate 34 mL/min (>60); Est Glom Filt Rate - Afr Amer 41 mL/min (>60); Estimated Creatinine Clearance 28.44 ml/min; Glucose 123 mg/dL (74-106); Potassium 4.7 mmol/L (3.5-5.1); Sodium Level 136 mmol/L (136-145)
[2024-05-17 06:17] LABS: Bedside Glucose 104 mg/dL (74-106)
[2024-05-17 06:46] VITALS: O2SAT 98
[2024-05-17] MEDS: Ensure Clear 120 ML Liquid PO ×3 (07:52→16:24)
[2024-05-17] MEDS: Magnesium Chloride 64 MG Delay Rel.Tablet PO ×2 (07:53→21:51)
[2024-05-17] MEDS: Amiodarone 200 MG Tablet PO (07:53)
[2024-05-17] MEDS: Ferrous Sulfate 325 MG Tablet PO ×2 (07:53→16:25)
[2024-05-17] MEDS: Folic Acid 1 MG Tablet PO (07:53)
[2024-05-17] MEDS: Finasteride 5 MG Tablet PO (07:54)
[2024-05-17] MEDS: LINAGLIPTIN 5 MG TABLET PO (07:55)
[2024-05-17] MEDS: Senna/Docusate Sodium 1 Tablet 2 TABLET PO ×2 (07:55→21:52)
[2024-05-17] MEDS: Pantoprazole Sodium 40 MG Tablet PO ×2 (07:55→21:53)
[2024-05-17] MEDS: Cyanocobalamin 500 MCG Tablet PO (07:55)
[2024-05-17] MEDS: Nystatin Powder 15gm Bottle 1 APPLIC TOPICAL ×2 (07:56→21:52)
[2024-05-17] MEDS: Cholecalciferol (VIT D3) 25 MCG TABLET (1,000 UNITS) PO (07:56)
[2024-05-17] MEDS: Menthol/Lanolin/Calamine/Znox 113 GM Tube 1 APPLIC TOPICAL ×2 (07:56→21:52)
[2024-05-17] MEDS: Polyethylene Glycol 3350 17 GM PACKET PO (07:56)
[2024-05-17 08:45] VITALS: BMI 26.9
[2024-05-17] MEDS: BACITRACIN 15 GM Tube 1 APPLIC TOPICAL (13:03)
[2024-05-17 13:58] VITALS: BP 132/57; PULSE 50; RESP 16; TEMP 36.1; O2SAT 94
--- NOTE | 2024-05-17 16:13 | NURSING ---
Increased edema noted from this morning. LS diminished in bases, nonpitting Jose upper thighs, +2 pitting edema BLE, pitting +1 left upper forearm, Dr. Dupont updated, n.o. stop IV maintenance fluids
[2024-05-17 21:31] LABS: Bedside Glucose 231 mg/dL (74-106)
[2024-05-17] MEDS: Gabapentin 400 MG Capsule PO (21:50)
[2024-05-17] MEDS: Pravastatin 40 MG Tablet PO (21:51)
[2024-05-17] MEDS: Acetaminophen 500 MG Tablet 1000 MG PO (21:51)
[2024-05-17] MEDS: Latanoprost 0.005% 1 Bottle 1 DRP OPHTHALMIC (21:52)
[2024-05-17] MEDS: Tamsulosin HCl 0.4 MG Capsule 0.8 MG PO (21:53)
[2024-05-17] MEDS: 0.9% Saline Lock 10 ML Syringe IV (21:54)
[2024-05-17] MEDS: Insulin Glargine-YFGN 100 UNIT/ML Pen 8 UNIT SC (21:54)
[2024-05-17 22:05] VITALS: BP 138/72; PULSE 51; O2SAT 95
--- NOTE | 2024-05-17 22:55 | PCA ---
oxygen bottle and tubing changed tonight
--- NOTE | 2024-05-18 05:50 | NURSING ---
Resident calls for staff this am requesting to be placed in the right room. Questioned place w/ resident who notes he is at [facility]. Informed refsident he is in the right place in room 14 and has been on the unit for a few weeks. he verbalizes understanding. Will continue to monitor.
[2024-05-18 06:51] LABS: Bedside Glucose 111 mg/dL (74-106)
[2024-05-18 07:57] VITALS: O2SAT 95
[2024-05-18 08:37] VITALS: O2SAT 97
[2024-05-18] MEDS: Finasteride 5 MG Tablet PO (09:19)
[2024-05-18] MEDS: Ensure Clear 120 ML Liquid PO ×3 (09:19→16:45)
[2024-05-18] MEDS: Cholecalciferol (VIT D3) 25 MCG TABLET (1,000 UNITS) PO (09:20)
[2024-05-18] MEDS: Ferrous Sulfate 325 MG Tablet PO ×2 (09:20→16:45)
[2024-05-18] MEDS: Magnesium Chloride 64 MG Delay Rel.Tablet PO ×2 (09:20→22:22)
[2024-05-18] MEDS: Amiodarone 200 MG Tablet PO (09:20)
[2024-05-18] MEDS: Cyanocobalamin 500 MCG Tablet PO (09:20)
[2024-05-18] MEDS: LINAGLIPTIN 5 MG TABLET PO (09:20)
[2024-05-18] MEDS: Polyethylene Glycol 3350 17 GM PACKET PO (09:21)
[2024-05-18] MEDS: Nystatin Powder 15gm Bottle 1 APPLIC TOPICAL ×2 (09:21→22:24)
[2024-05-18] MEDS: Pantoprazole Sodium 40 MG Tablet PO ×2 (09:22→22:23)
[2024-05-18] MEDS: Folic Acid 1 MG Tablet PO (09:22)
[2024-05-18] MEDS: Menthol/Lanolin/Calamine/Znox 113 GM Tube 1 APPLIC TOPICAL ×2 (09:22→22:25)
[2024-05-18 09:23] VITALS: O2SAT 85; O2SAT 97
[2024-05-18] MEDS: traMADol 50 MG Tablet PO (09:26)
[2024-05-18] MEDS: 0.9% Saline Lock 10 ML Syringe IV (09:30)
[2024-05-18 10:00] VITALS: BMI 26.9
[2024-05-18 13:43] VITALS: BP 138/63; PULSE 51; RESP 20; TEMP 36.2; O2SAT 97
--- NOTE | 2024-05-18 14:02 | CASEMGMT ---
Social Work Insurance issued LCD 05/20, DC 05/21. AYO met with pt at bedside, introduced self and role. Educated to LCD and appeal rights. Pt agreeable to DC, but requested this worker to contact to inquire transportation and if DCing on the holiday (05/21) is okay. SW agreed. SW inquired about skilled HHC and any DME needs to pt. Pt agreeable to skilled HHC and used [facility] prior; requesting to utilize at DC. Denied any DME needs. SW noted pt is continuing to require O2 and this worker will coordinate for DC with [employer]. Pt agreeable. SW phoned . Introduced self and role. Educated to LCD and pt agreeable to DC. Offered to DC prior to holiday. denied and [facility] SW sent referral to [facility] for PT/OT/SN via [facility] and [employer] for O2. Plan: DC home with 05/21, [facility] PT/OT/SN, O2 2LPM ANNAMARIA Huang
[2024-05-18 21:41] LABS: Bedside Glucose 205 mg/dL (74-106)
[2024-05-18 22:15] VITALS: PULSE 51; RESP 18; O2SAT 95
[2024-05-18] MEDS: Pravastatin 40 MG Tablet PO (22:22)
[2024-05-18] MEDS: Tamsulosin HCl 0.4 MG Capsule 0.8 MG PO (22:22)
[2024-05-18] MEDS: Latanoprost 0.005% 1 Bottle 1 DRP OPHTHALMIC (22:23)
[2024-05-18] MEDS: Insulin Glargine-YFGN 100 UNIT/ML Pen 8 UNIT SC (22:23)
[2024-05-18] MEDS: Gabapentin 400 MG Capsule PO (22:24)
[2024-05-19 06:00] VITALS: O2SAT 86; O2SAT 91; O2SAT 93; O2SAT 95
[2024-05-19 06:38] LABS: Bedside Glucose 117 mg/dL (74-106)
[2024-05-19 07:27] VITALS: O2SAT 98
[2024-05-19] MEDS: Ferrous Sulfate 325 MG Tablet PO ×2 (09:29→18:05)
[2024-05-19] MEDS: Magnesium Chloride 64 MG Delay Rel.Tablet PO ×2 (09:29→21:50)
[2024-05-19] MEDS: Folic Acid 1 MG Tablet PO (09:29)
[2024-05-19] MEDS: Senna/Docusate Sodium 1 Tablet 2 TABLET PO ×2 (09:29→21:52)
[2024-05-19] MEDS: Cyanocobalamin 500 MCG Tablet PO (09:29)
[2024-05-19] MEDS: LINAGLIPTIN 5 MG TABLET PO (09:29)
[2024-05-19] MEDS: Finasteride 5 MG Tablet PO (09:30)
[2024-05-19] MEDS: Pantoprazole Sodium 40 MG Tablet PO ×2 (09:30→21:52)
[2024-05-19] MEDS: Cholecalciferol (VIT D3) 25 MCG TABLET (1,000 UNITS) PO (09:30)
[2024-05-19] MEDS: Amiodarone 200 MG Tablet PO (09:30)
[2024-05-19] MEDS: Polyethylene Glycol 3350 17 GM PACKET PO (09:30)
[2024-05-19] MEDS: Ensure Clear 120 ML Liquid PO ×3 (09:31→18:05)
[2024-05-19] MEDS: Nystatin Powder 15gm Bottle 1 APPLIC TOPICAL ×2 (09:45→21:53)
[2024-05-19] MEDS: Menthol/Lanolin/Calamine/Znox 113 GM Tube 1 APPLIC TOPICAL ×2 (09:45→21:49)
[2024-05-19 10:00] VITALS: BMI 26.9
[2024-05-19 10:59] VITALS: O2SAT 92
[2024-05-19 12:33] VITALS: PULSE 51; RESP 18; O2SAT 97
[2024-05-19 14:28] VITALS: BP 125/57; PULSE 51; RESP 16; TEMP 36.3; O2SAT 97
[2024-05-19 21:42] LABS: Bedside Glucose 198 mg/dL (74-106)
[2024-05-19] MEDS: Latanoprost 0.005% 1 Bottle 1 DRP OPHTHALMIC (21:49)
[2024-05-19] MEDS: Gabapentin 400 MG Capsule PO (21:50)
[2024-05-19] MEDS: Tamsulosin HCl 0.4 MG Capsule 0.8 MG PO (21:50)
[2024-05-19] MEDS: Insulin Glargine-YFGN 100 UNIT/ML Pen 8 UNIT SC (21:51)
[2024-05-19] MEDS: Pravastatin 40 MG Tablet PO (21:52)
[2024-05-19] MEDS: 0.9% Saline Lock 10 ML Syringe IV (21:57)
[2024-05-19] MEDS: traMADol 50 MG Tablet PO (22:01)
[2024-05-20 06:32] LABS: Bedside Glucose 98 mg/dL (74-106)
[2024-05-20 07:00] VITALS: O2SAT 98
[2024-05-20 08:07] VITALS: BMI 26.8
[2024-05-20] MEDS: Pantoprazole Sodium 40 MG Tablet PO ×2 (08:48→21:29)
[2024-05-20] MEDS: Folic Acid 1 MG Tablet PO (08:48)
[2024-05-20] MEDS: Magnesium Chloride 64 MG Delay Rel.Tablet PO ×2 (08:48→21:28)
[2024-05-20] MEDS: LINAGLIPTIN 5 MG TABLET PO (08:48)
[2024-05-20] MEDS: Amiodarone 200 MG Tablet PO (08:48)
[2024-05-20] MEDS: Ensure Clear 120 ML Liquid PO ×3 (08:48→17:13)
[2024-05-20] MEDS: Ferrous Sulfate 325 MG Tablet PO ×2 (08:48→17:13)
[2024-05-20] MEDS: Cyanocobalamin 500 MCG Tablet PO (08:48)
[2024-05-20] MEDS: Senna/Docusate Sodium 1 Tablet 2 TABLET PO ×2 (08:48→21:30)
[2024-05-20] MEDS: Polyethylene Glycol 3350 17 GM PACKET PO (08:48)
[2024-05-20] MEDS: Finasteride 5 MG Tablet PO (08:48)
[2024-05-20] MEDS: Cholecalciferol (VIT D3) 25 MCG TABLET (1,000 UNITS) PO (08:48)
[2024-05-20] MEDS: Menthol/Lanolin/Calamine/Znox 113 GM Tube 1 APPLIC TOPICAL ×2 (08:49→21:29)
[2024-05-20] MEDS: Nystatin Powder 15gm Bottle 1 APPLIC TOPICAL ×2 (08:49→21:30)
[2024-05-20 09:43] VITALS: BP 125/58; PULSE 62; RESP 20; TEMP 36.8; O2SAT 97
[2024-05-20 13:43] VITALS: O2SAT 95
--- NOTE | 2024-05-20 14:36 | MDS.RN ---
Pain interview for MDS completed.
--- NOTE | 2024-05-20 17:46 | CASEMGMT ---
Social Work BIMS () and PHQ-2 () completed for MDS assessment. Bridgette Barlow MSW [employer]
[2024-05-20 21:18] LABS: Bedside Glucose 140 mg/dL (74-106)
[2024-05-20] MEDS: Gabapentin 400 MG Capsule PO (21:27)
[2024-05-20] MEDS: traMADol 50 MG Tablet PO (21:27)
[2024-05-20] MEDS: Pravastatin 40 MG Tablet PO (21:28)
[2024-05-20] MEDS: Tamsulosin HCl 0.4 MG Capsule 0.8 MG PO (21:28)
[2024-05-20] MEDS: Latanoprost 0.005% 1 Bottle 1 DRP OPHTHALMIC (21:29)
[2024-05-20] MEDS: Insulin Glargine-YFGN 100 UNIT/ML Pen 8 UNIT SC (21:29)
[2024-05-20] MEDS: 0.9% Saline Lock 10 ML Syringe IV (21:31)
[2024-05-21 06:16] LABS: Bedside Glucose 74 mg/dL (74-106)
[2024-05-21 07:55] VITALS: O2SAT 95
[2024-05-21 08:08] VITALS: BP 125/65; PULSE 57; RESP 17; TEMP 36.2; O2SAT 98
[2024-05-21] MEDS: Ensure Clear 120 ML Liquid PO (08:13)
[2024-05-21] MEDS: Amiodarone 200 MG Tablet PO (08:15)
[2024-05-21] MEDS: Ferrous Sulfate 325 MG Tablet PO (08:15)
[2024-05-21] MEDS: Folic Acid 1 MG Tablet PO (08:15)
[2024-05-21] MEDS: Pantoprazole Sodium 40 MG Tablet PO (08:16)
[2024-05-21] MEDS: Magnesium Chloride 64 MG Delay Rel.Tablet PO (08:16)
[2024-05-21] MEDS: LINAGLIPTIN 5 MG TABLET PO (08:16)
[2024-05-21] MEDS: Senna/Docusate Sodium 1 Tablet 2 TABLET PO (08:16)
[2024-05-21] MEDS: Cholecalciferol (VIT D3) 25 MCG TABLET (1,000 UNITS) PO (08:16)
[2024-05-21] MEDS: Finasteride 5 MG Tablet PO (08:16)
[2024-05-21] MEDS: Nystatin Powder 15gm Bottle 1 APPLIC TOPICAL (08:18)
[2024-05-21] MEDS: Cyanocobalamin 500 MCG Tablet PO (08:19)
[2024-05-21 10:00] VITALS: BMI 27.3
--- NOTE | 2024-05-21 11:02 | NURSING ---
Demonstrated how to empty liz, how to change to leg bag to son. son verbalized understanding. also reviewed mepilex drsg on buttocks with daughter in law.
--- NOTE | 2024-05-25 07:24 | DS.PCM_ITS ---
Providers Date of Admission: 04/23/24 Primary Care Physician: Dr. Cory Mckeon MD Consultations 05/08/24 07:38 Consult: Nephrology Routine Consulting Provider: Génesis Lynch Reason for Consult: JENNIFER, hyponatremia. EMERGENT Consult: No Notified: Yes Date Notified: 05/08/24 Time Notified: 09:44 Method of Notification: Answering Service Comments:: Spoke w/ Yuliana @ the office 05/10/24 07:48 Consult: Gastroenterology Routine Consulting Provider: [facility] Reason for Consult: Positive Occult Blood in stool EMERGENT Consult: No MD Notified: Yes Date Notified: 05/11/24 Time Notified: 08:45 Method of Notification: Text Reason For Visit: CHF EXACERBATION Diagnosis Discharge Diagnosis (1) Debility: Status: Acute Code(s): R53.81 - Other malaise (2) Acute respiratory failure with hypoxia: Status: Resolved Code(s): J96.01 - Acute respiratory failure with hypoxia (3) Acute HFrEF (heart failure with reduced ejection fraction): Status: Resolved Code(s): I50.21 - Acute systolic (congestive) heart failure (4) Pneumonia: Status: Resolved Code(s): J18.9 - Pneumonia, unspecified organism (5) Gastric ulcer: Status: Resolved Code(s): K25.9 - Gastric ulcer, unspecified as acute or chronic, without hemorrhage or perforation (6) Angiodysplasia of stomach: Status: Resolved Code(s): K31.819 - Angiodysplasia of stomach and duodenum without bleeding (7) Upper gastrointestinal bleed: Status: Resolved Code(s): K92.2 - Gastrointestinal hemorrhage, unspecified (8) Acute blood loss anemia: Status: Resolved Code(s): D62 - Acute posthemorrhagic anemia (9) Atrial fibrillation with slow ventricular response: Status: Chronic Code(s): I48.91 - Unspecified atrial fibrillation (10) Bradycardia: Status: Resolved Code(s): R00.1 - Bradycardia, unspecified (11) Presence of cardiac pacemaker: Status: Acute Code(s): Z95.0 - Presence of cardiac pacemaker (12) Hyperlipidemia: Status: Acute Code(s): E78.5 - Hyperlipidemia, unspecified (13) Gout: Status: Acute Code(s): M10.9 - Gout, unspecified (14) Type 2 diabetes mellitus with hyperglycemia: Status: Acute Code(s): E11.65 - Type 2 diabetes mellitus with hyperglycemia (15) Essential (primary) hypertension: Status: Acute Code(s): I10 - Essential (primary) hypertension (16) BPH (benign prostatic hyperplasia): Status: Acute Code(s): N40.0 - Benign prostatic hyperplasia without lower urinary tract symptoms (17) Iron deficiency anemia: Status: Acute Code(s): D50.9 - Iron deficiency anemia, unspecified Qualifiers: Iron deficiency anemia type: other iron deficiency Qualified Code(s): D 50.8 - Other iron deficiency anemias Plan 89 year old male with below past medical history hospitalized for acute respiratory failure with hypoxia 2/2 acute HFrEF, pneumonia ruled out, complicated by UGIB, bradycardia requiring permanent pacemaker placement, admitted to TCU with debility, here for rehabilitation, strengthening, prior to discharge home with . * Debility - PT/OT. * Pain - Tylenol 1000mg q6 prn pain (1-10). * Bowel - senna/colace 1 tablet bid, Magnesium citrate 300ml daily prn. * Adult immunization - Administer pneumonia vaccine, covid vaccine, flu vaccine as appropriate. * DVT prophylaxis - Hold, GI bleed. * Atrial fibrillation - Amiodarone 200mg daily, hold anticoagulation 2/2 falls. * Hypertension - Amlodipine 10mg daily, Hydralazine 50mg 4x/day. * Vitamin D deficiency - D3 25mcg daily. * Vitamin B12 deficiency - B12 1000mcg daily. * Iron deficiency anemia - Ferrous sulfate 325mg bidcm. * Folate deficiency - Folic acid 1mg daily. * Acute HFrEF (EF 25%), Hydralazine 50mg 4x/day, Furosemide 40mg bidcm. * Diabetic polyneuropathy - Gabapentin 400mg qhs. * Cough - Robitussin DM 2 tablets bid. * Diabetes Mellitus II - Metformin XR 500mg daily, Tradjenta 5mg daily, Glargine 8 units qhs. * Shortness of breath - Duoneb 3ml q6h. * Glaucoma - Latanoprost 1gtt ou qhs. * Hypomagnesemia - Magnesium chloride 64mg bid. * Skin irritation - Calmoseptine topical bid. * Gastric ulcer - Pantoprazole 40mg daily. * Hypokalemia - KCL 20meq daily. * Hyperlipidemia - Pravastatin 40mg qhs. * Gout - Probenecid 500mg daily. * BPH - Tamsulosin 0.8mg qhs. Medications at Discharge Home Medications pravastatin 40 mg tablet 40 mg PO QHS cholesterol 05/14/16 cholecalciferol (vitamin D3) 25 mcg (1,000 unit) tablet 1,000 unit PO DAILY vitamin 07/16/16 cyanocobalamin (vitamin B-12) 1,000 mcg tablet 1,000 mcg PO DAILY supplement 07/16/16 metformin 500 mg 24 hr tablet,extended release (gastric retention) 500 mg PO DAILY diabetes 07/16/16 sitagliptin phosphate 50 mg tablet 50 mg PO DAILY diabetes 06/25/19 docusate sodium 100 mg capsule (Colace) 100 mg PO BID PRN sool softener 09/11/19 ferrous sulfate 325 mg (65 mg iron) tablet (Feosol) 325 mg PO BID iron supplement 09/11/19 folic acid 400 mcg tablet 800 mcg PO DAILY vitamin 09/11/19 insulin glargine 100 unit/mL (3 mL) subcutaneous pen 8 unit subcut QHS diabetes 09/11/19 blood sugar diagnostic (True Metrix Glucose Test Strip) 03/18/24 gabapentin 400 mg capsule 400 mg PO QHS nerve pain 03/18/24 latanoprost 0.005 % eye drops 1 drp ophthalmic (eye) QHS eye health 03/18/24 pen needle, diabetic 31 gauge x 3/16 (Droplet Pen Needle) 03/18/24 potassium chloride 20 mEq tablet,extended release(part/cryst) 20 meq PO DAILY supplement 03/18/24 furosemide 40 mg tablet (Lasix) 40 mg PO BIDCM Edema #120 tabs 03/20/24 hydralazine 50 mg tablet 50 mg PO 4X/DAY BP 04/02/24 acetaminophen 500 mg tablet 1,000 mg (2 x 500 mg) PO Q6H PRN PRN Pain Score 1-10 #0 tabs 05/05/24 amlodipine 5 mg tablet 5 mg PO HS 30 days #30 tabs 05/05/24 pantoprazole 40 mg tablet,delayed release 40 mg PO DAILY 30 days #30 tabs 05/05/24 tamsulosin 0.4 mg capsule 0.8 mg (2 x 0.4 mg) PO QHS 30 days #60 caps 05/05/24 nitrofurantoin monohydrate/macrocrystals 100 mg capsule 100 mg PO BID 5 days #10 caps 05/07/24 amiodarone 200 mg tablet 200 mg PO DAILY 30 days #30 tabs 05/22/24 finasteride 5 mg tablet 5 mg PO DAILY 30 days #30 tabs 05/22/24 magnesium chloride 64 mg (magnesium chloride) tablet,delayed release (Mag 64) 64 mg PO BID Supplement #60 tabs 05/22/24 pantoprazole 40 mg tablet,delayed release 40 mg PO BID 30 days #60 tabs 05/22/24 probenecid 500 mg tablet 500 mg PO DAILY gout #30 tabs 05/22/24 Hospital Course Operations None Procedures EGD Summary of Care Provided Hospital Course: 89 year old male with below past medical history hospitalized for acute respiratory failure with hypoxia 2/2 acute HFrEF, pneumonia ruled out, complicated by UGIB, bradycardia requiring permanent pacemaker placement, admitted to TCU with debility, here for rehabilitation, strengthening, prior to discharge home with . 05/13/2024 Dr. Pearce EGD: Impressions : - Grade I esophageal varices. - Normal middle third of esophagus and lower third of esophagus. - Oozing gastric ulcer with pigmented material. Treated with a heater probe. - Non-bleeding gastric ulcer with no stigmata of bleeding. Biopsied. - Normal second portion of the duodenum. Recommendations : - Return patient to referring hospital for ongoing care. - Resume previous diet. - Continue present medications. - No aspirin, ibuprofen, naproxen, or other non-steroidal anti-inflammatory drugs for 7 days after biopsy. - Use Prilosec (omeprazole) 40 mg PO BID for 12 weeks. Discharge home with 05/21/2024, [facility] PT/OT/SN, O2 2 LPM. Oxygen: I have reviewed the oxygen testing, and this patient qualifies for the home equipment and portability. The patient is mobile in the home and the community. Patient has diagnosis of chronic Heart failure with reduced ejection fraction. Physical Exam Const alert General Appearance: cooperative HEENT normocephalic Eyes PERRL and EOMs intact bilaterally Neck supple, no JVD and no carotid bruits Resp normal respiratory effort, normal air movement and clear to auscultation bilaterally Cardio regular rate and regular rhythm GI normal to inspection, nondistended, normoactive bowel sounds, non-tender and non-distended Extremity normal capillary refill General Extremity: Negative for edema Skin no rashes or lesions noted General Skin Exam: no breakdown Psych affect normal Appearance: appropriate Weight / BMI Weight Weight: 93.984 kg Body Mass Index (BMI) 27.3 ABG / Lab / Microbiology Data 05/15/24 05:21 05/17/24 05:05 Microbiology: Microbiology 05/15/24 05:30 Nasal Secretion SARS-CoV-2 Antigen (Rapid) - Final 05/10/24 07:20 Stool Stool Occult Blood (DIONNE) - Final Occult Blood Positive 05/06/24 10:35 Urine, Catheterized Urine Culture - Final Presumptive E. coli 05/08/24 05:00 Nasal Secretion SARS-CoV-2 Antigen (Rapid) - Final 05/01/24 06:10 Nasal Secretion SARS-CoV-2 Antigen (Rapid) - Final 04/24/24 11:00 Nasal Secretion SARS-CoV-2 Antigen (Rapid) - Final D/C Instructions Discharge Diet: No restrictions Discharge Activity: Return to Normal Activity, May Shower and Use Walker Weight Bearing Status: Weight bearing as tolerated Call your doctor if you observe: Fever of 101 or Higher, Inability to urinate, Inability to have a bowel movement, Shortness of breath, Dizziness, Fainting spells, Swelling in the ankles, Chest pain and Uncontrolled pain Additional Instructions: Discharge home with 05/21/2024, [facility] PT/OT/SN, O2 2 LPM. Oxygen: I have reviewed the oxygen testing, and this patient qualifies for the home equipment and portability. The patient is mobile in the home and the community. Patient has diagnosis of chronic Heart failure with reduced ejection fraction. Please Follow Up With: Nick Villanueva MD When: As scheduled. Meaningful Use Info Meaningful Use Meaningful Use Diagnoses (Choose all that apply): None applicable Ischemic Stroke Statin Dosing Therapy Reference: STATIN DOSE THERAPY REFERENCE: * Patients > 75 years receive moderate or high dose statin therapy. * Patients 75 years or YOUNGER should receive HIGH intensity statin dose unless contraindicated. You will be required to document reason for non-treatment if statin daily dose does not meet guidelines. HIGH DOSE STATIN THERAPY DAILY Atorvastatin > than or = to 40 mg Rosuvastatin > than or = to 20 mg Amlodipine + Atorvastatin > than or = to 2.5/40 mg Ezetimibe + Simvastatin 10/80 mg Simvastatin 80mg Discharge Plan Admission Admit Date/Time: 04/23/24 16:08 Primary Reason for Your Visit: Debility. Attending Provider: Dave Dupont Chi Primary Care Provider: Cory Mckeon Consulting Providers: Génesis Lynch Instructions Additional Instructions / Restrictions: Discharge home with 05/21/2024, [facility] PT/OT/SN, O2 2 LPM. Oxygen: I have reviewed the oxygen testing, and this patient qualifies for the home equipment and portability. The patient is mobile in the home and the community. Patient has diagnosis of chronic Heart failure with reduced ejection fraction. Discharge Orders/Prescriptions Prescriptions: New acetaminophen 500 mg Tablet 1,000 mg PO Q6H PRN PRN (Reason: Pain Score 1-10) Qty: 0 0RF amlodipine 5 mg Tablet 5 mg PO HS 30 Days Qty: 30 0RF tamsulosin 0.4 mg Capsule 0.8 mg PO QHS 30 Days Qty: 60 0RF pantoprazole 40 mg Tablet,Delayed Release (Dr/Ec) 40 mg PO DAILY 30 Days Qty: 30 0RF nitrofurantoin monohyd/m-cryst 100 mg Capsule 100 mg PO BID 5 Days Qty: 10 0RF Continued ferrous sulfate [Feosol] 325 mg (65 mg iron) tablet 325 mg PO BID docusate sodium [Colace] 100 mg capsule 100 mg PO BID PRN (Reason: sool softener) folic acid 400 mcg tablet 800 mcg PO DAILY hydralazine 50 mg tablet 50 mg PO 4X/DAY pravastatin 40 MG tablet 40 mg PO QHS Patient Comments: Cholestrol sitagliptin phosphate 50 mg tablet 50 mg PO DAILY Patient Comments: Diabetes insulin glargine 100 unit/mL (3 mL) insulin pen 8 unit subcut QHS Patient Comments: Long acting insulin for diabetes cyanocobalamin (vitamin B-12) 1,000 MCG tablet 1,000 mcg PO DAILY Patient Comments: Supplement metformin 500 MG tablet,ER sandra.retention 24 hr 500 mg PO DAILY Patient Comments: Diabetes cholecalciferol (vitamin D3) 1,000 UNIT tablet 1,000 unit PO DAILY Patient Comments: Supplement gabapentin 400 mg capsule 400 mg PO QHS latanoprost 0.005 % drops 1 drp ophthalmic (eye) QHS potassium chloride 20 mEq tablet,ER particles/crystals 20 meq PO DAILY furosemide [Lasix] 40 mg tablet 40 mg PO BIDCM Qty: 120 0RF Discontinued tamsulosin [Flomax] 0.4 mg capsule 0.8 mg PO QHS acetaminophen 325 mg Tablet 650 mg PO Q6H PRN PRN (Reason: Headache/Fever (T>100f)) Qty: 0 0RF amiodarone 200 mg Tablet 200 mg PO DAILY Qty: 0 0RF Mucinex DM 30-600 mg Tablet Extended Release 12 Hr 2 tab PO BID Qty: 0 0RF insulin lispro [Humalog KwikPen Insulin] 100 unit/mL Insulin Pen See Protocol subcut ACHS Qty: 0 0RF Protocol: 4. Sliding Scale Insulin High-Med Dosing Condition: 150-199 mg/dl = 2 units Condition: 200-259 mg/dl = 4 units Condition: 260-324 mg/dl = 6 units Condition: 325-374 mg/dl = 8 units Condition: 375-409 mg/dl = 10 units Condition: 410-449 mg/dl = 11 units Condition: Greater than 449 call physician Protocol Text: - Use for Total Daily Dose of Insulin 56-80 units - Patient who are insulin resistant or septic HIGH MEDIUM DOSING ALGORITHM ipratropium-albuterol 0.5 mg-3 mg(2.5 mg base)/3 mL Solution For Nebulization 3 ml inhalation Q6H.RT PRN (Reason: Shortness Of Breath) Qty: 0 0RF menthol-zinc oxide [Calmoseptine] 0.44-20.6 % Ointment 1 applic topical BID Qty: 0 0RF Protocol: *Topical Application Instructions APPLICATION INSTRUCTIONS: apply to buttocks/coccyx pantoprazole [Protonix] 40 mg tablet,delayed release (DR/EC) 40 mg PO DAILY Qty: 1 0RF amlodipine 10 mg tablet See Rx Instructions .ROUTE .COMPLEX Rx Instructions: TAKE 1 TABLET EVERY BEDTIME No Action (DME) True Metrix Glucose Test Strip Strip MISCELLANEOUS Patient Comments: [NO ORIGINAL SIG] (DME) pen needle, diabetic [Droplet Pen Needle] 31 gauge x 3/16 needle MISCELLANEOUS Patient Comments: [NO ORIGINAL SIG] amiodarone 200 mg Tablet 200 mg PO DAILY 30 Days Qty: 30 0RF pantoprazole 40 mg Tablet,Delayed Release (Dr/Ec) 40 mg PO BID 30 Days Qty: 60 0RF finasteride 5 mg Tablet 5 mg PO DAILY 30 Days Qty: 30 0RF probenecid 500 MG tablet 500 mg PO DAILY Qty: 30 0RF Patient Comments: Gout magnesium chloride [Mag 64] 64 mg Tablet,Delayed Release (Dr/Ec) 64 mg PO BID Qty: 60 0RF Referrals / Follow Up: [facility] [Other] - 06/01/24 1:30 pm Cory Mckeon MD [Primary Care Provider] - 05/28/24 1:20 pm () Nick Villanueva MD [Med Staff - Active Staff] - (patient/family will need to make own appt after discharge Urinary retention) Disposition Disposition (needs filled in before D/C Order can be placed): Home Health Service
== END 2024-05-21 11:03 | disposition home health service (06) | DRG 291 ==
PROVIDERS: Admitting Provider Family Medicine Geriatric Medicine; PCP Family Medicine; Visit Provider Family Medicine Geriatric Medicine
DX: I13.0 Hypertensive heart and chronic kidney disease with heart failure and stage 1 through stage 4 chronic kidney disease, or unspecified chronic kidney disease (principal); J96.01 Acute respiratory failure with hypoxia; K25.4 Chronic or unspecified gastric ulcer with hemorrhage; K31.811 Angiodysplasia of stomach and duodenum with bleeding; I50.23 Acute on chronic systolic (congestive) heart failure; I85.00 Esophageal varices without bleeding; D62 Acute posthemorrhagic anemia; E87.1 Hypo-osmolality and hyponatremia; I48.21 Permanent atrial fibrillation; N17.9 Acute kidney failure, unspecified; N39.0 Urinary tract infection, site not specified; I27.21 Secondary pulmonary arterial hypertension; B35.4 Tinea corporis; E11.22 Type 2 diabetes mellitus with diabetic chronic kidney disease; N18.32 Chronic kidney disease, stage 3b; E11.42 Type 2 diabetes mellitus with diabetic polyneuropathy; E11.39 Type 2 diabetes mellitus with other diabetic ophthalmic complication; E11.51 Type 2 diabetes mellitus with diabetic peripheral angiopathy without gangrene; Z79.4 Long term (current) use of insulin; I48.91 Unspecified atrial fibrillation; I42.8 Other cardiomyopathies; E53.8 Deficiency of other specified B group vitamins; M10.9 Gout, unspecified; E55.9 Vitamin D deficiency, unspecified; E87.6 Hypokalemia; I25.10 Atherosclerotic heart disease of native coronary artery without angina pectoris; E78.5 Hyperlipidemia, unspecified; Z95.0 Presence of cardiac pacemaker; Z87.891 Personal history of nicotine dependence; N40.1 Benign prostatic hyperplasia with lower urinary tract symptoms; H40.9 Unspecified glaucoma; Z79.899 Other long term (current) drug therapy; Z79.84 Long term (current) use of oral hypoglycemic drugs; Z23 Encounter for immunization; R33.8 Other retention of urine
CPT/HCPCS: 36415; 71046; 76770; 80048; 81001; 82274; 82306; 82962; 83930; 83935; 84300; 85014; 85018; 85025; 86850; 86900; 86901; 86920; 86922; 87086; 87088; 87186; 87811; 90480; 92526; 92609; 92610; 94762; 97110; 97116; 97162; 97166; 97530; 97535; 97802; J7030; J7050; 91322; A4216; J1940

== ENCOUNTER → 2024-04-27 | Outpatient (CLI) | payer MEDICARE, SELFPAY ==
--- NOTE | 2024-04-27 13:36 | VDUE_ITS ---
Reason For Study: Left arm swelling Right Proximal Left Proximal Right subclavian vein is spontaneous, widely Left jugular vein is spontaneous, widely patent, phasic, with no intraluminal patent, phasic, with no intraluminal echogenicity noted. echogenicity noted. Left subclavian vein is spontaneous, widely patent, phasic, with no intraluminal echogenicity noted. Left Arm Left axillary vein is spontaneous, patent, phasic, competent, compressible and demonstrates augmentation. Left brachial vein is compressible. Acute superficial vein thrombosis is noted in the left Cephalic V from antecube to wrist, Basilic V from origin to prox forearm and Median Cubital Vein. It is NONCOMPRESSIBLE and dilated. Thrombus in the Basilic V is approximately 3.54 cm from Brachial V. Left Lower Arm Left radial vein is compressible. Left ulnar vein is compressible. Patient Safety Preliminary report given to TCU YONIS. VL/Venous Duplex US, Unilateral Interpretation Summary Superficial thrombophlebitis left cephalic vein from the antecubital space to t he wrist Superficial thrombophlebitis left basilic vein from the proximal forearm to the median cubital vein No evidence for acute deep venous thrombosis left upper extremity Normal flow patterns right subclavian vein Ordering Physician: Dave Dupont Chi Referring Physician: Iron Mckeon Performed By: Darshana Jarrett RVT ???
== END | disposition home or self-care (01) ==
LOC: CVS 13:34
PROVIDERS: PCP Family Medicine; Referring Provider Family Medicine Geriatric Medicine; Visit Provider Family Medicine Geriatric Medicine
DX: R22.32 Localized swelling, mass and lump, left upper limb (principal)
CPT/HCPCS: 93971

== ENCOUNTER 2024-05-02 08:49 | Outpatient (CLI) | payer MEDICARE, SELFPAY ==
[2024-05-02] VITALS (9 sets, daily range): BP systolic 107–124; BP diastolic 57–64; PULSE 50–61; RESP 16–18; TEMP 36–36.7; O2SAT 95–98
[2024-05-02] MEDS: Furosemide 20 MG/2 ML VIAL IV (14:12)
--- NOTE | 2024-05-02 17:36 | NURSING ---
This RN called TCU and let them know pt was returning at this time.
== END 2024-05-02 17:33 | disposition home or self-care (01) ==
LOC: PCUOUT 08:56 → PCU 08:58
PROVIDERS: PCP Family Medicine; Referring Provider Family Medicine Geriatric Medicine; Visit Provider Family Medicine Geriatric Medicine
DX: D62 Acute posthemorrhagic anemia (principal)
CPT/HCPCS: 36415; 36430; 86850; 86900; 86901; 86920; 86922; P9016; J1940

== ENCOUNTER 2024-05-13 13:33 | Day surgery (SDC) | payer MEDICARE, SELFPAY ==
[2024-05-13] VITALS (7 sets, daily range): BP systolic 112–122; BP diastolic 57–65; PULSE 50–55; RESP 16–17; TEMP 36.3–36.6; O2SAT 93–97; BMI 26.0
[2024-05-13] MEDS: Lactated Ringers 1,000 ML 15 ML IV (13:29)
--- NOTE | 2024-05-13 14:00 | EGD_PTH ---
PATIENT: JASON STANLEY LOC: [facility] U#:[id number] AGE/SX: 89/M ROOM: RE05/13/[address]: Dr. Thomas Pearce DO : 1935 BED: DIS: 05/13/2024 SPEC #: [id number] RECD: 05/13/24 17:33 STATUS: IRMA MARIBEL #: [id number] VIVIANA: 05/13/24 14:[address]: Thomas Pearce DEPT: SURGICAL PATHOLOGY RECD BY: Lorene Vargas ENTERED: 05/14/24 09:24 SP TYPE: EGD BIOPSY OT DR: Dr. Cory Mckeon MD Tissues: Gastric mucous membrane Procedures: Surgery Specimen Level IV HEADER OPERATION: EGD with biopsy and electrohemostasis PRE-OP DIAGNOSIS: Anemia TISSUE SUBMITTED: Gastric ulcer biopsy MICROSCOPIC DIAGNOSIS Gastric ulcer, biopsy: Fragments of gastric mucosa with focal superficial erosion, congestion and chronic inflammation. See comment. FLACO/ 05/15/2024 COMMENT The results of immunohistochemistry for Helicobacter pylori will be reported separately ([id number]). MICROSCOPIC DESCRIPTION Slides are reviewed. GROSS DESCRIPTION Received in fixative is one container labeled with the patient's name and designated Gastric ulcer biopsy. The specimen consists of multiple irregular fragments of light dubon soft tissue that in aggregate measure 1.2 x 0.3 x 0.1 cm. The specimen is totally submitted in one cassette. FLACO/ 05/14/2024 TC:3 CPT:88888
--- NOTE | 2024-05-13 14:00 | IMM_PTH ---
PATIENT: JASON STANLEY LOC: [facility] U#:[id number] AGE/SX: 89/M ROOM: RE05/13/[address]: Dr. Thomas Pearce DO : 1935 BED: DIS: 05/13/2024 SPEC #: [id number] RECD: 05/14/24 09:16 STATUS: IRMA REWallace #: [id number] VIVIANA: 05/13/24 14:[address]: Thomas Pearce DEPT: IMMUNOHISTOCHEMISTRY RECD BY: Yobany Garsia ENTERED: 05/14/24 09:16 SP TYPE: IMMUNO OTHR DR: Dr. Cory Mckeon MD Tissues: Gastric mucous membrane Procedures: H Pylori (initial) PHYSICIAN & INSTITUTION [place] [id number] SPECIMEN INFORMATION: Tissue Source: Gastric ulcer Clinical Info: Anemia Specimen Number: [id number] CPT code: 62635 METHODOLOGY: Deparaffinized sections of prefer/formalin-fixed tissue or PAP/DQ stained slides are incubated with monoclonal/polyclonal antibodies/oligonucleotide probes. Localization is made via biotin free immunoperoxidase method. Appropriate controls are performed and reacted as expected. Results on target cell population are indicated in the following table: RESULTS: ANTIBODY / CLONE RESULT H Pylori (polyclonal) negative These tests were developed and their performance characteristics determined by [facility]. They may not have been cleared or approved by the U.S. Food and Drug Administration. The FDA has determined that such clearance or approval is not necessary. The above immunohistochemical/dualISH markers are ordered and reviewed by the Pathologist. INTERPRETATION: Gastric ulcer, biopsy: Negative for Helicobacter pylori organisms. FLACO/ 05/15/2024
--- NOTE | 2024-05-13 14:06 | PCM.PRE.AN2 ---
ASA Classification* ASA Classification ASA Classification: 3 Assessment & Plan Anesthesia* Anesthesia Assessment Anesthesia Assessment: Discussed sedation and/or anesthesia options, risks, benefits, and alternatives with patient/parents/legal guardian/POA. Questions invited. The patient/parents/legal guardian/POA seems to understand and agrees to proceed with anesthesia plan. Reviewed the physical assessment, medical history, allergy history and patient home medications list prior to surgery/procedure/anesthetic and documented any changes. Performed airway and anesthesia risk assessments. Procedural Plan Procedural Plan:: Proceed w/ Anesthesia plan Anesthesia Type Anesthesia Type: MAC History Source History Obtained from:: Patient and Chart Anesthesia Focused Assessment* Temperature: 98 F Pulse Rate: 53 Blood Pressure: 122/65 Respiratory Rate: 17 Pulse Ox: 97 Oxygen Delivery Method: Nasal Cannula Airway Assessment Mouth opens: >3 cm Mallampati Score: II Teeth Condition: Dentures (Dentures are out) and Full Neck Range of motion (ROM): Limited ROM (Decreased extension) Focused Labs Anesthesia Preop lab: CBC WBC 10.7 K/mm3 (4.4-11.0) 05/09/24 05:11 RBC 2.83 M/mm3 (4.6-6.2) L 05/09/24 05:11 Hgb 8.4 g/dL (13.0-16.5) L 05/10/24 06:25 Hct 27.8 % (40-54) L 05/10/24 06:25 Plt Count 147 K/mm3 (150-450) L 05/09/24 05:11 CHEMISTRY Potassium 4.6 mmol/L (3.5-5.1) 05/09/24 05:11 Sodium 129 mmol/L (136-145) L 05/09/24 05:11 Magnesium 2.2 mg/dL (1.6-2.6) 04/21/24 06:36 Phosphorus 1.9 mg/dL (2.5-4.9) L 04/21/24 06:36 BUN 46 mg/dL (7-18) H 05/09/24 05:11 Creatinine 2.75 mg/dL (0.70-1.30) H 05/09/24 05:11 Glucose 122 mg/dL (74-106) H 05/09/24 05:11 POC Glucose 125 mg/dL (74-106) H 05/13/24 06:21 TSH 2.13 uIU/mL (0.358-3.74) 03/19/24 06:50 COAG PT 15.1 SECONDS (11.7-14.9) H 04/22/24 03:33 Pre-Assessment Diagnosis/Proposed Procedure Planned Operative Procedure(s): Esophagogastroduodenoscopy with possible biopsy Anesthesia History 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 When Was Last Pacemaker Check QUESTION #4 FULL TEXT: You/Your Family Experience fever (hyperthermia) with Anesthesia Last Oral Intake Last Oral intake: Last Oral Intake NPO since 00:00 05/13/24 13:33 Meds taken in AM with sips of No 05/13/24 13:33 water? Meds patient instructed to take am of surgery PONV PONV - conservation science teacher: PONV - conservation science teacher Female HX of Motion Sickness HX of N/V After Surgery Non-Smoker Duration of Surgery greater than 60 minutes Number of Risk Factors PONV Score Height & Weight Height & Weight: Anesthesia: Height & Weight Height 6 ft 1 in 05/13/24 13:33 Weight: 89.49 kg 05/13/24 13:33 Body Mass Index (BMI) 26.0 05/13/24 13:33 Respiratory Assessment Respiratory Assessment - conservation science teacher: Respiratory Tract Infection Hx - conservation science teacher Hx Respiratory Tract Infection no 04/16/24 04:14 Patient was fighting a pneumonia up until last week. Patient is currently done with his antibiotics. Any additional information?: Yes Hx Respiratory Tract Infection: Yes (Patient was fighting a pneumonia up until last week.) STOP Sleep Apnea STOP Sleep Apnea - conservation science teacher: STOP Sleep Apnea - conservation science teacher Hx Hypertension Yes 04/24/24 12:50 Hx Sleep Apnea No 04/23/24 16:17 CPAP No 04/16/24 12:05 BIPAP Do you snore loudly (louder than talking or can be heard Do you often feel tired/ fatigued/ sleepy during daytime? Has anyone observed you stop breathing during sleep? STOP Results QUESTION #5 FULL TEXT : Do you snore loudly (louder than talking or can be heard through closed doors)? Tobacco Use History Tobacco Use History - conservation science teacher: Tobacco Use History - conservation science teacher Tobacco Use Non-smoker 06/29/19 11:59 Smoking Status Former smoker 04/23/24 16:17 Hx Tobacco Use No 04/23/24 16:17 Years Smoking Packs Smoked per Day Smoking Cessation Date was within the last 15 years Hx Smoking Cessation Date 11/18/55 04/23/24 16:17 Hx Smoking Cessation No 04/23/24 16:17 Counseling Hematologic Medial History Hematologic Hx - conservation science teacher: Hematologic Medical Hx - operations support coordinator Hx of Blood Transfusion Hx of Transfusion in last 3 Months Date of Last Transfusion (if within last 3 months) Ever experience any problems with transfusion(s)? Specify any problems Hx of Preganancy in last 3 Months Nurse Filling Out Transfusion & Questions: Date: Time: Patient unable to answer at this time (ie. confused, unrespo /Reproduction History /Reproductive History - conservation science teacher: /Reproductive Hx- conservation science teacher Hx Now Gestational Age (in weeks): EDC: Hx Hx Para Hx Section SAB No 04/15/24 12:55 Active Medications Active Medications: Current Medications Generic Name Dose Route Start Last Admin Trade Name Freq PRN Reason Stop Dose Admin Lactated Ringer's 1,000 mls @ 15 mls/hr 05/13/24 13:30 05/13/24 13:29 IV 15 mls/hr .Q48H IRAIS Administration PFSH Medical History Atrial fibrillation with slow ventricular response Presence of cardiac pacemaker Hypothyroidism Non-smoker Peripheral vascular disease Prostate cancer Lumbar stenosis Gout DDD (degenerative disc disease) Carotid artery stenosis Chronic diastolic (congestive) heart failure Non-rheumatic aortic stenosis Atherosclerosis of coronary artery of [place] heart without angina pectoris Secondary pulmonary arterial hypertension Essential (primary) hypertension Left bundle branch block Stool guaiac positive Iron deficiency anemia Personal history of colonic polyps History of malignant neoplasm of colon Dysphasia Chronic kidney disease, stage III (moderate) Thoracic aortic aneurysm without rupture Colon cancer, ascending Dyslipidemia Type II diabetes mellitus Home Medications ?Medication ?Instructions ?Recorded ?Last Taken ?Type pravastatin 40 mg tablet 40 mg PO QHS cholesterol 05/14/16 04/22/24 History probenecid 500 mg tablet 500 mg PO DAILY gout 05/14/16 04/23/24 08:15 History cholecalciferol (vitamin D3) 25 1,000 unit PO DAILY vitamin 07/16/16 04/23/24 08:25 History mcg (1,000 unit) tablet cyanocobalamin (vitamin B-12) 1,000 mcg PO DAILY supplement 07/16/16 04/23/24 08:25 History 1,000 mcg tablet metformin 500 mg 24 hr 500 mg PO DAILY diabetes 07/16/16 04/14/24 History tablet,extended release (gastric retention) sitagliptin phosphate 50 mg tablet 50 mg PO DAILY diabetes 06/25/19 04/23/24 08:25 History docusate sodium 100 mg capsule 100 mg PO BID PRN sool softener 09/11/19 Unknown History (Colace) ferrous sulfate 325 mg (65 mg 325 mg PO BID iron supplement 09/11/19 04/23/24 08:25 History iron) tablet (Feosol) folic acid 400 mcg tablet 800 mcg PO DAILY vitamin 09/11/19 04/12/24 History insulin glargine 100 unit/mL (3 8 unit subcut QHS diabetes 09/11/19 04/22/24 History mL) subcutaneous pen blood sugar diagnostic (True 03/18/24 Unknown History Metrix Glucose Test Strip) gabapentin 400 mg capsule 400 mg PO QHS nerve pain 03/18/24 04/22/24 History latanoprost 0.005 % eye drops 1 drp ophthalmic (eye) QHS eye 03/18/24 04/22/24 History health pen needle, diabetic 31 gauge x 03/18/24 Unknown History 01/31 (Droplet Pen Needle) potassium chloride 20 mEq 20 meq PO DAILY supplement 03/18/24 04/23/24 08:15 History tablet,extended release(part/cryst) furosemide 40 mg tablet (Lasix) 40 mg PO BIDCM Edema #120 tabs 03/20/24 04/12/24 Rx hydralazine 50 mg tablet 50 mg PO 4X/DAY BP 04/02/24 04/23/24 14:25 History magnesium chloride 64 mg 64 mg PO BID Supplement #0 tabs 04/23/24 04/23/24 08:30 Rx (magnesium chloride) tablet,delayed release (Mag 64) acetaminophen 500 mg tablet 1,000 mg (2 x 500 mg) PO Q6H PRN 05/05/24 Unknown Rx PRN Pain Score 1-10 #0 tabs amiodarone 200 mg tablet 200 mg PO DAILY 30 days #30 tabs 05/05/24 Unknown Rx amlodipine 5 mg tablet 5 mg PO HS 30 days #30 tabs 05/05/24 Unknown Rx finasteride 5 mg tablet 5 mg PO DAILY 30 days #30 tabs 05/05/24 Unknown Rx pantoprazole 40 mg tablet,delayed 40 mg PO DAILY 30 days #30 tabs 05/05/24 Unknown Rx release tamsulosin 0.4 mg capsule 0.8 mg (2 x 0.4 mg) PO QHS 30 days 05/05/24 Unknown Rx #60 caps nitrofurantoin 100 mg PO BID 5 days #10 caps 05/07/24 Unknown Rx monohydrate/macrocrystals 100 mg capsule Allergy/AdvReac Type Severity Reaction Status Date / Time Milk Containing Products AdvReac NEEDS Verified 04/13/24 17:29 (Dairy) (Milk Containing FOLLOW-UP Products) quinapril (From Accupril) AdvReac Other Verified 04/13/24 17:29 Family History Mother Colon cancer Heart disease Hypertension CAD (coronary artery disease) Father Cancer prostate CVA (cerebral vascular accident) CAD (coronary artery disease) Brother CAD (coronary artery disease) CABG Brother CAD (coronary artery disease) CABG Surgical History History of left heart catheterization (07/2001) H/O colectomy S/P colonoscopy S/P cataract extraction Status post colectomy Social History household members: spouse Smoking Status: Former smoker how long ago did patient quit smokin years ago alcohol intake: never substance use type: does not use Review of Systems (Anesthesia) ROS Narrative System reviewed and no additional complaints, except as documented.
--- NOTE | 2024-05-13 15:31 | PCM.HP.BLA ---
History and Physical Date of Admission: 05/13/24 Reason for Consultation: Anemia HPI Narrative: JASON STANLEY, is a 89-year-old male who presented to [facility] ED on 04/13/2024 with worsening shortness of breath. He was diagnosed with an acute exacerbation of HFrEF with mild hypoxia, and recently was admitted with a diagnosis of nonischemic cardiomyopathy. His EF 25%, stage II diastolic dysfunction, severe global hypokinesis, severely enlarged LA, moderate pulmonary hypertension. Per cardiology, he was scheduled to get a pacemaker placed tomorrow. Today he developed an acute recurrent upper GI bleed possibly exacerbated by Lovenox status post endoscopic treatment with hemostasis currently. I will give him 2 units of packed red blood cells with Lasix in between. Chronic iron deficiency anemia in the setting of acute blood loss anemia. ? Baseline hemoglobin around 7.5-8.5. Hemoglobin stable at baseline. Repeat iron studies on 04/14 showed continued significant iron deficiency. He was given 2 doses of IV iron 200 mg on 04/16 and 04/17. He had recurrent GI bleeding. He was treated endoscopically. Hemoglobin is improved up to 7.5. His hemoglobin dropped down to 6.2 and he agreed to undergo an upper endoscopy. Grade I varices were found in the upper third of the esophagus. They were 5 mm in largest diameter. One non-bleeding cratered gastric ulcer with pigmented material was found on the greater curvature of the stomach. The lesion was 10 mm in largest dimension. Coagulation for bleeding prevention using heater probe was successful. Estimated blood loss was minimal. The duodenal bulb was normal. Impression: - Grade I esophageal varices. - Non-bleeding gastric ulcer with pigmented material. Treated with a heater probe. - Normal duodenal bulb. - No specimens collected. I was called back to [facility] because his hemoglobin dropped back down. [facility] Medical History (Updated 05/08/24 @ 13:[address] Amanda Davis MD) Atrial fibrillation with slow ventricular response Presence of cardiac pacemaker Hypothyroidism Non-smoker Peripheral vascular disease Prostate cancer Lumbar stenosis Gout DDD (degenerative disc disease) Carotid artery stenosis Chronic diastolic (congestive) heart failure Non-rheumatic aortic stenosis Atherosclerosis of coronary artery of [place] heart without angina pectoris Secondary pulmonary arterial hypertension Essential (primary) hypertension Left bundle branch block Stool guaiac positive Iron deficiency anemia Personal history of colonic polyps History of malignant neoplasm of colon Dysphasia Chronic kidney disease, stage III (moderate) Thoracic aortic aneurysm without rupture Colon cancer, ascending Dyslipidemia Type II diabetes mellitus Home Medications ?Medication ?Instructions ?Recorded ?Last Taken ?Type pravastatin 40 mg tablet 40 mg PO QHS cholesterol 05/14/16 04/22/24 History probenecid 500 mg tablet 500 mg PO DAILY gout 05/14/16 04/23/24 08:15 History cholecalciferol (vitamin D3) 25 1,000 unit PO DAILY vitamin 07/16/16 04/23/24 08:25 History mcg (1,000 unit) tablet cyanocobalamin (vitamin B-12) 1,000 mcg PO DAILY supplement 07/16/16 04/23/24 08:25 History 1,000 mcg tablet metformin 500 mg 24 hr 500 mg PO DAILY diabetes 07/16/16 04/14/24 History tablet,extended release (gastric retention) sitagliptin phosphate 50 mg tablet 50 mg PO DAILY diabetes 06/25/19 04/23/24 08:25 History docusate sodium 100 mg capsule 100 mg PO BID PRN sool softener 09/11/19 Unknown History (Colace) ferrous sulfate 325 mg (65 mg 325 mg PO BID iron supplement 09/11/19 04/23/24 08:25 History iron) tablet (Feosol) folic acid 400 mcg tablet 800 mcg PO DAILY vitamin 09/11/19 04/12/24 History insulin glargine 100 unit/mL (3 8 unit subcut QHS diabetes 09/11/19 04/22/24 History mL) subcutaneous pen blood sugar diagnostic (True 03/18/24 Unknown History Metrix Glucose Test Strip) gabapentin 400 mg capsule 400 mg PO QHS nerve pain 03/18/24 04/22/24 History latanoprost 0.005 % eye drops 1 drp ophthalmic (eye) QHS eye 03/18/24 04/22/24 History health pen needle, diabetic 31 gauge x 03/18/24 Unknown History 01/31 (Droplet Pen Needle) potassium chloride 20 mEq 20 meq PO DAILY supplement 03/18/24 04/23/24 08:15 History tablet,extended release(part/cryst) furosemide 40 mg tablet (Lasix) 40 mg PO BIDCM Edema #120 tabs 03/20/24 04/12/24 Rx hydralazine 50 mg tablet 50 mg PO 4X/DAY BP 04/02/24 04/23/24 14:25 History magnesium chloride 64 mg 64 mg PO BID Supplement #0 tabs 04/23/24 04/23/24 08:30 Rx (magnesium chloride) tablet,delayed release (Mag 64) acetaminophen 500 mg tablet 1,000 mg (2 x 500 mg) PO Q6H PRN 05/05/24 Unknown Rx PRN Pain Score 1-10 #0 tabs amiodarone 200 mg tablet 200 mg PO DAILY 30 days #30 tabs 05/05/24 Unknown Rx amlodipine 5 mg tablet 5 mg PO HS 30 days #30 tabs 05/05/24 Unknown Rx finasteride 5 mg tablet 5 mg PO DAILY 30 days #30 tabs 05/05/24 Unknown Rx pantoprazole 40 mg tablet,delayed 40 mg PO DAILY 30 days #30 tabs 05/05/24 Unknown Rx release tamsulosin 0.4 mg capsule 0.8 mg (2 x 0.4 mg) PO QHS 30 days 05/05/24 Unknown Rx #60 caps nitrofurantoin 100 mg PO BID 5 days #10 caps 05/07/24 Unknown Rx monohydrate/macrocrystals 100 mg capsule Allergy/AdvReac Type Severity Reaction Status Date / Time Milk Containing Products AdvReac NEEDS Verified 04/13/24 17:29 (Dairy) (Milk Containing FOLLOW-UP Products) quinapril (From Accupril) AdvReac Other Verified 04/13/24 17:29 Family History Mother Colon cancer Heart disease Hypertension CAD (coronary artery disease)Father Cancer prostate CVA (cerebral vascular accident) CAD (coronary artery disease)Brother CAD (coronary artery disease) CABGBrother CAD (coronary artery disease) CABG Surgical History History of left heart catheterization (07/2001) H/O colectomy S/P colonoscopy S/P cataract extraction Status post colectomy Social History household members: spouse Smoking Status: Former smoker how long ago did patient quit smokin years ago alcohol intake: never substance use type: does not use ROS Constitutional Constitutional: Reports fatigue; Denies chills or fever(s) Eyes Eyes: Denies blurry vision ENT HEENT: Denies abnormal hearing Cardiovascular Cardiovascular: Reports orthopnea; Denies chest pain Respiratory/Chest Respiratory/Chest: Reports shortness of breath at rest; Denies cough or wheezing Gastrointestinal Gastrointestinal: Denies abdominal pain Genitourinary Genitourinary: Denies dysuria Musculoskeletal Musculoskeletal: Denies back pain Integumentary Integumentary: Denies wounds Neurologic Neurologic: Denies abnormal speech Psychiatric Psychiatric: Denies anxiety Physical Exam Narrative General: Alert and oriented x3, NAD. HEENT: Normocephalic, atraumatic. Mucous membrane moist without erythema. PERRLA, EOMI. decreased hearing. Neck: Supple, no JVD. Trachea is midline. No thyromegaly or lymphadenopathy. Cardiovascular: Normal S1, S2. There is 3/6 systolic murmur best heard in the left upper sternal border. Respiratory: Lungs are clear to auscultation bilaterally. No wheezing, rhonchi, or rales. Abdomen: Normal bowel sounds, soft, nontender, no guarding or rebound, no organomegaly. Extremities: 2+ lower extremity edema. No clubbing or cyanosis. Musculoskeletal: Full passive range of motion, no joint swelling. Psychiatric: Normal mood and affect. Skin: Warm and dry, no rash. Neurologic: Cranial nerve II to XII are grossly intact. No focal neurologic deficits. Lab / Micro Data 05/10/24 06:25 05/09/24 05:11 Labs: Laboratory Results - last 24 hr 05/10/24 21:02: POC Glucose 188 H 05/11/24 06:03: POC Glucose 123 H Assessment & Plan Assessment/Plan (1) Nonsustained ventricular tachycardia: (2) Non-ischemic cardiomyopathy: (3) Atrial fibrillation: QUALIFIERS: Atrial fibrillation type: permanent Qualified Code(s): I48.21 - Permanent atrial fibrillation (4) CHF exacerbation: QUALIFIERS: Heart failure type: unspecified Qualified Code(s): I50.9 - Heart failure, unspecified PLAN: Plan Patient is an 89-year-old male who presented to [facility] ED on with worsening shortness of breath. Patient was diagnosed with acute congestive heart failure with reduced ejection fraction. Hospital stay complicated by development of upper GI bleed for which patient underwent emergency EGD Acute upper GI bleed ? Patient underwent EGD by Dr. Pearce on 04/19/2024. About 500 mL of bright red blood was aspirated from his stomach. There is also a lot of coffee ground bloody material in his stomach. 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 This lesion was treated with 6 of epinephrine followed by cautery and Hemospray. ? Patient hemoglobin down to 7 plan is for patient to be transfused with 1 unit PRBC. Patient scheduled to undergo repeat EGD I have examined the patient and the H&P has been reviewed. There are no clinical changes since date of exam.
--- NOTE | 2024-05-13 15:37 | OP.EGD_ITS ---
Patient Name: Joel Talbert Procedure Date: 05/13/2024 2:26 PM Date of : 1935 Age: 89 Procedure: Upper GI endoscopy Indications: Epigastric abdominal pain, Iron deficiency anemia, Melena Providers: Thomas Pearce DO Medicines: Monitored Anesthesia Care Patient Profile: This is an 89 year old male. Refer to note in patient chart for documentation of history and physical. Patient has symptoms of acute dyspepsia and acute nausea. His most recent EGD for treatment of bleeding was recently. Complications: No immediate complications. Procedure: Pre-Anesthesia Assessment: - Prior to the procedure, a History and Physical was performed, and patient medications and allergies were reviewed. The patient is competent. The risks and benefits of the procedure and the sedation options and risks were discussed with the patient. All questions were answered and informed consent was obtained. Patient identification and proposed procedure were verified by the physician in the pre-procedure area. Mental Status Examination: alert and oriented. Airway Examination: normal oropharyngeal airway and neck mobility. Respiratory Examination: clear to auscultation. CV Examination: normal. Prophylactic Antibiotics: The patient does not require prophylactic antibiotics. Prior Anticoagulants: The patient has taken no anticoagulant or antiplatelet agents. ASA Grade Assessment: IV - A patient with severe systemic disease that is a constant threat to life. After reviewing the risks and benefits, the patient was deemed in satisfactory condition to undergo the procedure. The anesthesia plan was to use monitored anesthesia care (MAC). Immediately prior to administration of medications, the patient was re-assessed for adequacy to receive sedatives. The heart rate, respiratory rate, oxygen saturations, blood pressure, adequacy of pulmonary ventilation, and response to care were monitored throughout the procedure. The physical status of the patient was re-assessed after the procedure. After obtaining informed consent, the endoscope was passed under direct vision. Throughout the procedure, the patient's blood pressure, pulse, and oxygen saturations were monitored continuously. The Endoscope was introduced through the mouth, and advanced to the second part of duodenum. The upper GI endoscopy was accomplished without difficulty. The patient tolerated the procedure well. Scope In: 3:17:15 PM Scope Out: 3:28:41 PM Total Procedure Duration Time 0 hours 11 minutes 26 seconds Findings: Grade I varices were found in the upper third of the esophagus. They were 5 mm in largest diameter. The middle third of the esophagus and lower third of the esophagus were normal. One oozing cratered gastric ulcer with pigmented material was found at the incisura. The lesion was 6 mm in largest dimension. Coagulation for hemostasis using heater probe was successful. One non-bleeding linear gastric ulcer with no stigmata of bleeding was found in the gastric body. The lesion was 5 mm in largest dimension. Biopsies were taken with a cold forceps for histology. Verification of patient identification for the specimen was done. Estimated blood loss was minimal. The second portion of the duodenum was normal. Impression: - Grade I esophageal varices. - Normal middle third of esophagus and lower third of esophagus. - Oozing gastric ulcer with pigmented material. Treated with a heater probe. - Non-bleeding gastric ulcer with no stigmata of bleeding. Biopsied. - Normal second portion of the duodenum. Recommendation: - Return patient to referring hospital for ongoing care. - Resume previous diet. - Continue present medications. - No aspirin, ibuprofen, naproxen, or other non-steroidal anti-inflammatory drugs for 7 days after biopsy. - Use Prilosec (omeprazole) 40 mg PO BID for 12 weeks. Procedure Code(s): --- Professional --- 53835, 59, Esophagogastroduodenoscopy, flexible, transoral; with control of bleeding, any method 05794, 51, Esophagogastroduodenoscopy, flexible, transoral; with biopsy, single or multiple CPT copyright 2021 [employer]. All rights reserved. The codes documented in this report are preliminary and upon svp review may be revised to meet current compliance requirements. Thomas Pearce DO 05/13/2024 3:36:33 PM This report has been signed electronically. Number of Addenda: 0 Note Initiated On: 05/13/2024 2:26 PM
--- NOTE | 2024-05-13 15:37 | OP.CCLET_ITS ---
05/13/2024 Cory Mckeon Re : Upper GI endoscopy procedure for Joel Talbert Jordynr Mike This procedure was performed on Monday, May 13, 2024. My impressions and recommendations are as follows: Impressions : - Grade I esophageal varices. - Normal middle third of esophagus and lower third of esophagus. - Oozing gastric ulcer with pigmented material. Treated with a heater probe. - Non-bleeding gastric ulcer with no stigmata of bleeding. Biopsied. - Normal second portion of the duodenum. Recommendations : - Return patient to referring hospital for ongoing care. - Resume previous diet. - Continue present medications. - No aspirin, ibuprofen, naproxen, or other non-steroidal anti-inflammatory drugs for 7 days after biopsy. - Use Prilosec (omeprazole) 40 mg PO BID for 12 weeks. My findings are described in the full procedure note, which is enclosed. If I can be of further assistance, please feel free to contact me at . Sincerely, Thomas Pearce, 05/13/2024 3:36:33 PM This report has been signed electronically.
--- NOTE | 2024-05-13 15:38 | PCM.POST.ANE ---
Anesthesia: Postop Eval I Current Vital Signs Temperature: 97.3 F Pulse Rate: 53 Blood Pressure: 112/57 Respiratory Rate: 16 Pulse Ox: 95 Oxygen Delivery Method: Nasal Cannula Oxygen Flow Rate (L/min): 2 Assessment Airway patent: Yes Spontaneous unlabored respirations: Yes Mental status: Awake and Calm nausea: No Vomiting: No Anesthesia Complication: No Fluid Hydration Crystalloid volume administer (ml): 400 Total IV fluid infused: 400 Progress Note Anesthesia document: Postop Eval 1 completed: Yes
--- NOTE | 2024-05-13 16:11 | PCM.POSTANE2 ---
Anesthesia Postop Eval I Sum Postop Eval Completion status Anesthesia document: Postop Eval 1 completed: Yes Anesthesia Postop Eval I Summary Anesthesia Postop Eval I Summary: Anesthesia Postop Eval I: Assessment Summary Airway patent Yes 05/13/24 15:52 [email or web address] Spontaneous unlabored Yes 05/13/24 15:52 [email or web address] respirations Mental status Awake,Calm 05/13/24 15:52 [email or web address] nausea No 05/13/24 15:52 [email or web address] Vomiting No 05/13/24 15:52 [email or web address] Anesthesia Postop Eval I: Fluid Summary Crystalloid volume administer 400 05/13/24 15:52 [email or web address] (ml) Colloids volume administered ( ml) Blood Product volume administered (ml) Total IV fluid infused 400 05/13/24 15:52 [email or web address] Anesthesia Postop Eval I: Summary Notes Anesthesia Complication No 05/13/24 15:52 [email or web address] Anesthesia Complication Comment: Post-operative progress note Anesthesia: Postop Eval II Evaluation Mental status: Awake and Calm Pain Level: 0 nausea: No Vomiting: No Complications Anesthesia Complication: No
== END 2024-05-13 15:58 | disposition home or self-care (01) ==
LOC: EN 13:35 → AC 13:35
PROVIDERS: PCP Family Medicine; Referring Provider Family Medicine; Visit Provider Internal Medicine Gastroenterology
PROC: 0DJ08ZZ Inspection of Upper Intestinal Tract, Via Natural or Artificial Opening Endoscopic (ICD-10-PCS; CPT 43235; principal; 2024-05-13 13:55)
DX: K25.4 Chronic or unspecified gastric ulcer with hemorrhage (principal); I85.00 Esophageal varices without bleeding; I13.0 Hypertensive heart and chronic kidney disease with heart failure and stage 1 through stage 4 chronic kidney disease, or unspecified chronic kidney disease; I50.9 Heart failure, unspecified; I48.21 Permanent atrial fibrillation; I47.20 Ventricular tachycardia, unspecified; I42.8 Other cardiomyopathies; E11.22 Type 2 diabetes mellitus with diabetic chronic kidney disease; Z79.4 Long term (current) use of insulin; Z79.84 Long term (current) use of oral hypoglycemic drugs; D50.9 Iron deficiency anemia, unspecified; E78.5 Hyperlipidemia, unspecified; D62 Acute posthemorrhagic anemia; I25.10 Atherosclerotic heart disease of native coronary artery without angina pectoris; Z80.0 Family history of malignant neoplasm of digestive organs; Z87.891 Personal history of nicotine dependence; Z95.0 Presence of cardiac pacemaker; Z85.46 Personal history of malignant neoplasm of prostate; Z86.010 Personal history of colon polyps; Z79.899 Other long term (current) drug therapy; Z90.49 Acquired absence of other specified parts of digestive tract; Z98.49 Cataract extraction status, unspecified eye; K25.9 Gastric ulcer, unspecified as acute or chronic, without hemorrhage or perforation
CPT/HCPCS: 43255; 43239; 88305; 88342; J7120; J2405

== ENCOUNTER 2024-07-01 09:52 | Observation (INO) | payer MEDICARE, SELFPAY ==
[2024-06-25 13:02] LABS: Hematocrit 29.9 % (40-54); Hemoglobin 8.6 g/dL (13.0-16.5); Mean Corp Hgb Conc 28.8 g/dL (32-36); Mean Corpuscular Hgb 27.7 pg (27.0-32.0); Mean Corpuscular Volume 96.1 fL (80-94); Mean Platelet Vol. 10.5 fl (6.2-12.0); POSITIVE MORPHOLOGY YES; Platelet Count 126 K/mm3 (150-450); RBC Distribution Width CV 20.2 % (11.6-14.6); RBC Distribution Width SD 70.4 fl (35.1-43.9); Red Blood Count 3.11 M/mm3 (4.6-6.2); White Blood Count 5.3 K/mm3 (4.4-11.0)
[2024-06-25 13:12] LABS: Scan Indicated on CBC? Y/N YES- FLAGS NOTED
[2024-06-25 13:16] LABS: International Normalized Ratio 1.1; Prothrombin Time (Protime)PT. 14.4 SECONDS (11.7-14.9)
[2024-06-25 13:17] LABS: Partial Thromboplast Time 28.7 Seconds (24.1-36.2)
[2024-06-25 13:21] LABS: Differential Comment SCANNED
[2024-06-25 13:33] LABS: AST(SGOT) 21 U/L (15-37); Alanine Aminotransfer ALT/SGPT 21 U/L (16-61); Albumin, Serum 2.2 g/dL (3.2-5.0); Alkaline Phosphatase 52 U/L (45-117); Anion Gap 4 (5-15); BUN 40 mg/dL (7-18); BUN/Creat Ratio 20.2 RATIO (10-20); Bilirubin, Direct 0.23 mg/dL (0.00-0.30); Chloride 102 mmol/L (98-107); Creatinine, Serum 1.98 mg/dL (0.70-1.30); EST Glomerular Filtration Rate 34 mL/min (>60); Est Glom Filt Rate - Afr Amer 41 mL/min (>60); Globulin 5.8 g/dL (2.2-4.2); Glucose 171 mg/dL (74-106); Potassium 4.1 mmol/L (3.5-5.1); Sodium Level 142 mmol/L (136-145)
[2024-06-25 13:37] LABS: Hemoglobin A1c 6.3 % (3.8-5.6)
[2024-07-01] VITALS (14 sets, daily range): BP systolic 120–140; BP diastolic 53–72; PULSE 50–55; RESP 14–18; TEMP 36.1–36.8; O2SAT 90–100; BMI 25.2
--- NOTE | 2024-07-01 | IMM_PTH ---
PATIENT: JASON STANLEY LOC: MS3 U#:[id number] AGE/SX: 89/M ROOM: [facility] [place] RE07/01/[address]: Dr. Nick Villauneva MD : 1935 BED: 1 DIS: 07/02/2024 SPEC #: [id number] RECD: 07/03/24 11:15 STATUS: IRMA REWallace #: [id number] VIVIANA: 07/01/24 00:[address]: Nick Villanueva DEPT: IMMUNOHISTOCHEMISTRY RECD BY: Yobany Garsia ENTERED: 07/03/24 11:15 SP TYPE: IMMUNO OTHR DR: Dr. Cory Mckeon MD Tissues: Prostate, NOS Procedures: CD31 (add) CK20 (add) CK5-6 (add) CK7 (add) Pankeratin (initial) PSAP (add) PHYSICIAN & INSTITUTION [place] [id number] SPECIMEN INFORMATION: Tissue Source: Prostate biopsy Clinical Info: Benign prostate hyperplasia Specimen Number: [id number] CPT code: 39994,96363v1 METHODOLOGY: Deparaffinized sections of prefer/formalin-fixed tissue or PAP/DQ stained slides are incubated with monoclonal/polyclonal antibodies/oligonucleotide probes. Localization is made via biotin free immunoperoxidase method. Appropriate controls are performed and reacted as expected. Results on target cell population are indicated in the following table: RESULTS: ANTIBODY / CLONE RESULT Block #9 AE1-3 (AE1/AE3/PCK26) positive CK7 (OV-TL12/30) negative CK20 (KS20.8) negative CD31 (SARAH/70A) negative PSAP (PASE/4LJ) positive CK5-6 (D5 & 1684) positive, basal cells only These tests were developed and their performance characteristics determined by [facility]. They may not have been cleared or approved by the U.S. Food and Drug Administration. The FDA has determined that such clearance or approval is not necessary. The above immunohistochemical/dualISH markers are ordered and reviewed by the Pathologist. INTERPRETATION: Prostate tissue, transurethral resection: Infiltrating prostatic adenocarcinoma. IQRA/ 07/06/2024
--- NOTE | 2024-07-01 09:37 | PCM.PRE.AN2 ---
ASA Classification* ASA Classification ASA Classification: 3 Assessment & Plan Anesthesia* Anesthesia Assessment Anesthesia Assessment: Discussed sedation and/or anesthesia options, risks, benefits, and alternatives with patient/parents/legal guardian/POA. Questions invited. The patient/parents/legal guardian/POA seems to understand and agrees to proceed with anesthesia plan. Reviewed the physical assessment, medical history, allergy history and patient home medications list prior to surgery/procedure/anesthetic and documented any changes. Performed airway and anesthesia risk assessments. Anesthesia Type Anesthesia Type: General Anesthesia Focused Assessment* Airway Assessment Mouth opens: >3 cm Mallampati Score: II Focused Labs Anesthesia Preop lab: CBC WBC 5.3 K/mm3 (4.4-11.0) 06/25/24 12:01 RBC 3.11 M/mm3 (4.6-6.2) L 06/25/24 12:01 Hgb 8.6 g/dL (13.0-16.5) L 06/25/24 12:01 Hct 29.9 % (40-54) L 06/25/24 12:01 Plt Count 126 K/mm3 (150-450) L 06/25/24 12:01 CHEMISTRY Potassium 4.1 mmol/L (3.5-5.1) 06/25/24 12:01 Sodium 142 mmol/L (136-145) 06/25/24 12:01 Magnesium 2.2 mg/dL (1.6-2.6) 04/21/24 06:36 Phosphorus 1.9 mg/dL (2.5-4.9) L 04/21/24 06:36 BUN 40 mg/dL (7-18) H 06/25/24 12:01 Creatinine 1.98 mg/dL (0.70-1.30) H 06/25/24 12:01 Glucose 171 mg/dL (74-106) H 06/25/24 12:01 POC Glucose 74 mg/dL (74-106) 05/21/24 05:53 TSH 2.13 uIU/mL (0.358-3.74) 03/19/24 06:50 COAG PT 14.4 SECONDS (11.7-14.9) 06/25/24 12:01 Pre-Assessment Diagnosis/Proposed Procedure Planned Operative Procedure(s): TURP Anesthesia History 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 03/2024-05/21/24 CHF Any Problems With Anesthesia No 06/24/24 12:20 Cholinesterase deficiency No 06/24/24 12:20 You/Your Family Experience No 06/24/24 12:20 fever (hyperthermia) with Relationship Recent Exposure to Contagious No 05/13/24 13:33 Disease Does patient have nerve No 06/24/24 12:20 stimulator Patient instructed to have device shut off --Does patient have Pacemaker or ICD? When Was Last Pacemaker Check QUESTION #4 FULL TEXT: You/Your Family Experience fever (hyperthermia) with Anesthesia Last Oral Intake Last Oral intake: Last Oral Intake NPO since Meds taken in AM with sips of water? Meds patient instructed to take am of surgery PONV PONV - refrigeration plant cork insulator: PONV - refrigeration plant cork insulator Female No 06/24/24 12:20 HX of Motion Sickness No 06/24/24 12:20 HX of N/V After Surgery No 06/24/24 12:20 Non-Smoker Yes 06/24/24 12:20 Duration of Surgery greater Yes 06/24/24 12:20 than 60 minutes Number of Risk Factors 2 06/24/24 12:20 PONV Score Moderate Risk 06/24/24 12:20 Height & Weight Height & Weight: Anesthesia: Height & Weight Height 6 ft 1 in 06/19/24 10:05 Respiratory Assessment Respiratory Assessment - refrigeration plant cork insulator: Respiratory Tract Infection Hx - refrigeration plant cork insulator Hx Respiratory Tract Infection No 06/24/24 12:20 STOP Sleep Apnea STOP Sleep Apnea - refrigeration plant cork insulator: STOP Sleep Apnea - refrigeration plant cork insulator Hx Hypertension Yes: CONTROLLED WITH MEDS 06/24/24 12:20 Hx Sleep Apnea No 06/24/24 12:20 CPAP No 05/13/24 15:35 BIPAP Do you snore loudly (louder No 06/24/24 12:20 than talking or can be heard Do you often feel tired/ Yes 06/24/24 12:20 fatigued/ sleepy during daytime? Has anyone observed you stop No 06/24/24 12:20 breathing during sleep? STOP Results Positive 06/24/24 12:20 QUESTION #5 FULL TEXT : Do you snore loudly (louder than talking or can be heard through closed doors)? 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 plant cork insulator: Tobacco Use History - refrigeration plant cork insulator Tobacco Use Non-smoker 06/29/19 11:59 Smoking Status Former smoker 06/24/24 12:20 Hx Tobacco Use No 06/24/24 12:20 Years Smoking Packs Smoked per Day Smoking Cessation Date was No - quit smoking greater 06/24/24 12:20 within the last 15 years than 15 years ago Hx Smoking Cessation Date 11/18/55 06/24/24 12:20 Hx Smoking Cessation No 06/24/24 12:20 Counseling Hematologic Medial History Hematologic Hx - refrigeration plant cork insulator: Hematologic Medical Hx - ict developer Hx of Blood Transfusion Yes 06/24/24 12:20 Hx of Transfusion in last 3 Yes 06/24/24 12:20 Months Date of Last Transfusion (if 04/202406/24/24 12:20 within last 3 months) Ever experience any problems No 06/24/24 12:20 with transfusion(s)? Specify any problems Hx of Preganancy in last 3 N/A 06/24/24 12:20 Months Nurse Filling Out Transfusion DSCHRIBER 06/24/24 12:20 & Questions: Date: 06/24/24 06/24/24 12:20 Time: 12:23 06/24/24 12:20 Patient unable to answer at this time (ie. confused, unrespo /Reproduction History /Reproductive History - refrigeration plant cork insulator: /Reproductive Hx- refrigeration plant cork insulator Hx Now No 06/24/24 12:20 Gestational Age (in weeks): EDC: Hx Hx Para Hx Section SAB No 06/24/24 12:20 Active Medications Active Medications: Current Medications Generic Name Dose Route Start Last Admin Trade Name Freq PRN Reason Stop Dose Admin Cefazolin Sodium 2 gm/ Sodium 110 mls @ 150 mls/hr 07/01/24 10:30 Chloride IV 07/01/24 11:13 PREOP ONE Lactated Ringer's 1,000 mls @ 15 mls/hr 07/01/24 09:30 IV .Q48H IRAIS PFSH Medical History Penetrating wound of left forearm History of echocardiogram History of atrial fibrillation Wears hearing aid Wears glasses Wears dentures Cancer Depression Anxiety Abrasion Insulin dependent diabetes mellitus Arthritis Walker as ambulation aid Prostate disease Indwelling urethral catheter present History of renal disease Low iron Anemia High cholesterol Easy bruising Back pain Dietary restriction Difficulty swallowing Esophageal varices History of ulceration Former smoker On home oxygen therapy Shortness of breath on exertion History of edema Hypertension History of rheumatic fever History of CHF (congestive heart failure) Cardiology follow-up encounter Presence of cardiac pacemaker Atrial fibrillation with slow ventricular response Peripheral vascular disease Lumbar stenosis Gout DDD (degenerative disc disease) Carotid artery stenosis Chronic diastolic (congestive) heart failure Non-rheumatic aortic stenosis Atherosclerosis of coronary artery of [place] heart without angina pectoris Secondary pulmonary arterial hypertension Essential (primary) hypertension Left bundle branch block Stool guaiac positive Iron deficiency anemia Personal history of colonic polyps History of malignant neoplasm of colon Chronic kidney disease, stage III (moderate) Thoracic aortic aneurysm without rupture Colon cancer, ascending Dyslipidemia Type II diabetes mellitus Home Medications ?Medication ?Instructions ?Recorded ?Last Taken ?Type pravastatin 40 mg tablet 40 mg PO QHS cholesterol 05/14/16 04/22/24 History cholecalciferol (vitamin D3) 25 1,000 unit PO DAILY vitamin 07/16/16 04/23/24 08:25 History mcg (1,000 unit) tablet cyanocobalamin (vitamin B-12) 1,000 mcg PO DAILY supplement 07/16/16 04/23/24 08:25 History 1,000 mcg tablet sitagliptin phosphate 50 mg tablet 50 mg PO DAILY diabetes 06/25/19 04/23/24 08:25 History docusate sodium 100 mg capsule 100 mg PO BID PRN sool softener 09/11/19 Unknown History (Colace) ferrous sulfate 325 mg (65 mg 325 mg PO BID iron supplement 09/11/19 04/23/24 08:25 History iron) tablet (Feosol) folic acid 400 mcg tablet 800 mcg PO DAILY vitamin 09/11/19 04/12/24 History insulin glargine 100 unit/mL (3 8 unit subcut QHS diabetes 09/11/19 04/22/24 History mL) subcutaneous pen blood sugar diagnostic (True 03/18/24 Unknown History Metrix Glucose Test Strip) gabapentin 400 mg capsule 400 mg PO QHS nerve pain 03/18/24 04/22/24 History latanoprost 0.005 % eye drops 1 drp ophthalmic (eye) QHS eye 03/18/24 04/22/24 History health pen needle, diabetic 31 gauge x 03/18/24 Unknown History 01/31 (Droplet Pen Needle) potassium chloride 20 mEq 20 meq PO DAILY supplement 03/18/24 04/23/24 08:15 History tablet,extended release(part/cryst) furosemide 40 mg tablet (Lasix) 40 mg PO BIDCM Edema #120 tabs 03/20/24 04/12/24 Rx hydralazine 50 mg tablet 50 mg PO 4X/DAY BP 04/02/24 04/23/24 14:25 History pantoprazole 40 mg tablet,delayed 40 mg PO DAILY 30 days #30 tabs 05/05/24 Unknown Rx release finasteride 5 mg tablet 5 mg PO DAILY 30 days #30 tabs 05/22/24 Unknown Rx magnesium chloride 64 mg 64 mg PO BID Supplement #60 tabs 05/22/24 Unknown Rx (magnesium chloride) tablet,delayed release (Mag 64) amlodipine 5 mg tablet 2.5 mg (1/2 x 5 mg) PO HS 30 days 05/27/24 Unknown Rx #15 tabs amiodarone 200 mg tablet 200 mg PO DAILY #90 tabs 06/15/24 Unknown Rx Allergy/AdvReac Type Severity Reaction Status Date / Time Milk Containing Products AdvReac NEEDS Verified 07/01/24 09:35 (Dairy) (Milk Containing FOLLOW-UP Products) quinapril (From Accupril) AdvReac Other Verified 07/01/24 09:35 Family History Mother Colon cancer Heart disease Hypertension CAD (coronary artery disease) Father Cancer prostate CVA (cerebral vascular accident) CAD (coronary artery disease) Brother CAD (coronary artery disease) CABG Brother CAD (coronary artery disease) CABG Surgical History History of esophagogastroduodenoscopy (EGD) History of left heart catheterization (07/2001) H/O colectomy S/P colonoscopy S/P cataract extraction Social History household members: spouse Smoking Status: Former smoker how long ago did patient quit smokin years ago alcohol intake: never substance use type: does not use Review of Systems (Anesthesia) ROS Narrative System reviewed and no additional complaints, except as documented.
[2024-07-01] MEDS: Lactated Ringers 1,000 ML 15 ML IV (09:48)
--- NOTE | 2024-07-01 09:58 | HP.PCM_ITS ---
[facility] - General General Date of Service: 07/01/24 Chief Complaint: BPH with urinary retention HPI Narrative JASON STANLEY, is a 89 M with retention of urine he is an elderly male with multiple medical problems weakness and debility the family wishes to have him free of the catheter to see if he can urinate on his own he did have obstruction on cystoscopy but is fairly weak elderly gentleman they are aware that there is no guarantees as a work organ to proceed with a TURP and we will do a voiding trial but again were cautious that this may not work but we will see the surgery will be able to alleviate obstruction and restore normal normal voiding. [facility] Medical History Penetrating wound of left forearm History of echocardiogram History of atrial fibrillation Wears hearing aid Wears glasses Wears dentures Cancer Depression Anxiety Abrasion Insulin dependent diabetes mellitus Arthritis Walker as ambulation aid Prostate disease Indwelling urethral catheter present History of renal disease Low iron Anemia High cholesterol Easy bruising Back pain Dietary restriction Difficulty swallowing Esophageal varices History of ulceration Former smoker On home oxygen therapy Shortness of breath on exertion History of edema Hypertension History of rheumatic fever History of CHF (congestive heart failure) Cardiology follow-up encounter Presence of cardiac pacemaker Atrial fibrillation with slow ventricular response Peripheral vascular disease Lumbar stenosis Gout DDD (degenerative disc disease) Carotid artery stenosis Chronic diastolic (congestive) heart failure Non-rheumatic aortic stenosis Atherosclerosis of coronary artery of [place] heart without angina pectoris Secondary pulmonary arterial hypertension Essential (primary) hypertension Left bundle branch block Stool guaiac positive Iron deficiency anemia Personal history of colonic polyps History of malignant neoplasm of colon Chronic kidney disease, stage III (moderate) Thoracic aortic aneurysm without rupture Colon cancer, ascending Dyslipidemia Type II diabetes mellitus Home Medications ?Medication ?Instructions ?Recorded ?Last Taken ?Type pravastatin 40 mg tablet 40 mg PO QHS cholesterol 05/14/16 06/30/24 History cholecalciferol (vitamin D3) 25 1,000 unit PO DAILY vitamin 07/16/16 06/30/24 History mcg (1,000 unit) tablet cyanocobalamin (vitamin B-12) 1,000 mcg PO DAILY supplement 07/16/16 06/30/24 History 1,000 mcg tablet sitagliptin phosphate 50 mg tablet 50 mg PO DAILY diabetes 06/25/19 06/30/24 History docusate sodium 100 mg capsule 100 mg PO BID PRN sool softener 09/11/19 06/30/24 History (Colace) ferrous sulfate 325 mg (65 mg 325 mg PO BID iron supplement 09/11/19 06/30/24 History iron) tablet (Feosol) folic acid 400 mcg tablet 800 mcg PO DAILY vitamin 09/11/19 06/30/24 History insulin glargine 100 unit/mL (3 8 unit subcut QHS diabetes 09/11/19 06/30/24 History mL) subcutaneous pen blood sugar diagnostic (True 03/18/24 Unknown History Metrix Glucose Test Strip) gabapentin 400 mg capsule 400 mg PO QHS nerve pain 03/18/24 06/30/24 History latanoprost 0.005 % eye drops 1 drp ophthalmic (eye) QHS eye 03/18/24 06/30/24 History health pen needle, diabetic 31 gauge x 03/18/24 Unknown History 01/31 (Droplet Pen Needle) potassium chloride 20 mEq 20 meq PO DAILY supplement 03/18/24 06/30/24 History tablet,extended release(part/cryst) furosemide 40 mg tablet (Lasix) 40 mg PO BIDCM Edema #120 tabs 03/20/24 06/30/24 Rx hydralazine 50 mg tablet 50 mg PO 4X/DAY BP 04/02/24 06/30/24 History pantoprazole 40 mg tablet,delayed 40 mg PO DAILY 30 days #30 tabs 05/05/24 07/01/24 Rx release finasteride 5 mg tablet 5 mg PO DAILY 30 days #30 tabs 05/22/24 06/30/24 Rx magnesium chloride 64 mg 64 mg PO BID Supplement #60 tabs 05/22/24 06/30/24 Rx (magnesium chloride) tablet,delayed release (Mag 64) amlodipine 5 mg tablet 2.5 mg (1/2 x 5 mg) PO HS 30 days 05/27/24 06/30/24 Rx #15 tabs amiodarone 200 mg tablet 200 mg PO DAILY #90 tabs 06/15/24 07/01/24 Rx Allergy/AdvReac Type Severity Reaction Status Date / Time Milk Containing Products AdvReac NEEDS Verified 07/01/24 09:35 (Dairy) (Milk Containing FOLLOW-UP Products) quinapril (From Accupril) AdvReac Other Verified 08/14/24 09:35 Family History Mother Colon cancer Heart disease Hypertension CAD (coronary artery disease) Father Cancer prostate CVA (cerebral vascular accident) CAD (coronary artery disease) Brother CAD (coronary artery disease) CABG Brother CAD (coronary artery disease) CABG Surgical History History of esophagogastroduodenoscopy (EGD) History of left heart catheterization (07/2001) H/O colectomy S/P colonoscopy S/P cataract extraction Social History household members: spouse Smoking Status: Former smoker how long ago did patient quit smokin years ago alcohol intake: never substance use type: does not use Vital Signs Vital Signs Vital Signs: 07/01/24 09:39 07/01/24 09:39 Temperature 97.9 F Temperature Source Temporal Pulse Rate 52 L Respiratory Rate 18 Respiratory Pattern Normal Blood Pressure 128/53 H Blood Pressure Mean 78 Blood Pressure Source Monitor Blood Pressure Position Semi-Fowlers Blood Pressure Location Left Arm Pulse Ox 100 Oxygen Delivery Method Nasal Cannula Oxygen Flow Rate (L/min) 2 Weight Weight: 87 kg Body Mass Index (BMI) 25.2 Results Lab / Micro Data 06/25/24 12:01 06/25/24 12:01
--- NOTE | 2024-07-01 10:00 | DCINST_ITS ---
Discharge Instructions Diet Discharge Diet: No restrictions Activity Discharge Activity: Return to Normal Activity and May Not Drive (while taking narcotic pain medications.) Dressing / Incision Call your doctor if you observe: Inability to urinate Follow Up Care Please Follow Up With: Nick Villanueva MD When: Call [phone] for an appointment Test Results: Test results from this visit will be discussed in further detail at your follow- up appointment, if applicable. Discharge Plan Admission Primary Reason for Your Visit: Transurethral section of prostate Attending Provider: Nick Villanueva Primary Care Provider: Cory Mckeon Instructions Patient Instructions: TURP, TURP Home Recovery, TURP Hospital Recovery Print Language: Italian Discharge Orders/Prescriptions Prescriptions: Continued ferrous sulfate [Feosol] 325 mg (65 mg iron) tablet 325 mg PO BID docusate sodium [Colace] 100 mg capsule 100 mg PO BID PRN (Reason: sool softener) folic acid 400 mcg tablet 800 mcg PO DAILY hydralazine 50 mg tablet 50 mg PO 4X/DAY amlodipine 5 mg tablet 2.5 mg PO HS 30 Days Qty: 15 0RF pravastatin 40 MG tablet 40 mg PO QHS Patient Comments: Cholestrol sitagliptin phosphate 50 mg tablet 50 mg PO DAILY Patient Comments: Diabetes insulin glargine 100 unit/mL (3 mL) insulin pen 8 unit subcut QHS Patient Comments: Long acting insulin for diabetes cyanocobalamin (vitamin B-12) 1,000 MCG tablet 1,000 mcg PO DAILY Patient Comments: Supplement cholecalciferol (vitamin D3) 1,000 UNIT tablet 1,000 unit PO DAILY Patient Comments: Supplement gabapentin 400 mg capsule 400 mg PO QHS latanoprost 0.005 % drops 1 drp ophthalmic (eye) QHS potassium chloride 20 mEq tablet,ER particles/crystals 20 meq PO DAILY (DME) True Metrix Glucose Test Strip Strip MISCELLANEOUS Patient Comments: [NO ORIGINAL SIG] (DME) pen needle, diabetic [Droplet Pen Needle] 31 gauge x 3/16 needle MISCELLANEOUS Patient Comments: [NO ORIGINAL SIG] furosemide [Lasix] 40 mg tablet 40 mg PO BIDCM Qty: 120 0RF pantoprazole 40 mg Tablet,Delayed Release (Dr/Ec) 40 mg PO DAILY 30 Days Qty: 30 0RF finasteride 5 mg Tablet 5 mg PO DAILY 30 Days Qty: 30 0RF magnesium chloride [Mag 64] 64 mg Tablet,Delayed Release (Dr/Ec) 64 mg PO BID Qty: 60 0RF amiodarone 200 mg tablet 200 mg PO DAILY Qty: 90 3RF Referrals / Follow Up: Cory Mckeon MD [Primary Care Provider] - Kay,Nick Rivera MD [Med Staff - Active Staff] - Disposition Disposition (needs filled in before D/C Order can be placed): Home, Self Care
[2024-07-01 10:10] LABS: Bedside Glucose 101 mg/dL (74-106)
[2024-07-01] MEDS: Ipratropium/Albuterol Sulfate 3 ML AMPUL.NEB INHALATION (10:35)
[2024-07-01] MEDS: Cefazolin 2 GM in 0.9% Normal Saline (100mL Bag) 100 ML IV (11:18)
--- NOTE | 2024-07-01 11:25 | OP.PCM_ITS ---
Report of Operation Date of Procedure: 07/01/24 Pre-Operative Diagnosis: BPH with retention of urine Post-Operative Diagnosis: The same Surgery/Procedure Performed:: Transurethral section of prostate Description of Surgical Findings:: In the preoperative setting I discussed with the patient how the surgery would be done with expect afterwards. We discussed how a prostate resection is done and we discussed the risk of the surgery including, bleeding, infection, retrograde ejaculation, changes with ejaculation or intercourse,. We discussed the possibility that the resection of the prostate may not alleviate his urinary symptoms. We discussed the small risk of developing scar tissue along the urethral channel and strictures. We also discussed the chance of the prostate could grow back and he may need further surgery or treatment in the future for prostate problems. Patient was taken back to the operating room, timeout procedure was performed, he was identified and marked and placed on the operating room table. He underwent general anesthesia. He was placed in dorsolithotomy position. Penis and testicles were prepped and draped in usual sterile fashion. Went into the bladder using the visual obturator with a resectoscope. Once inside the bladder identified the right and left ureteral orifice. I then identified the prostate and the anatomy of the prostate. I marked out the area of the sphincter and the verumontanum was identified. I then proceeded with the prostate resection first resected the median lobe. And then resected the right lobe of the prostate. Then to resect the left lobe of the prostate. I then resected the apical tissue of the prostate. This was a complete resection of all obstructive tissue to improve voiding and relieve obstruction. I then made sure that there was no injury to the sphincter or the verumontanum was still intact. At the end of the resection all the chips were Ellik out of the bladder. I then identified the left and right ureteral orifice and these were confirmed to be in good position and effluxing and not injured. The resectoscope was removed, a 22 [place] catheter was placed into the bladder on continuous irrigation. And the urine was fairly light pink color and draining normally. He was taken back to the PACU in good condition. CPT 84336 Surgeon: Nick Villanueva Type of Anesthesia: General Drains: 22 Slovenian three-way catheter Admit VTE Documentation VTE Present on Admission: No VTE Mechan Device Prophylaxis: SCD's VTE Pharm Prophylaxis ordered?: No
--- NOTE | 2024-07-01 11:30 | PROS_PTH ---
PATIENT: JASON STANLEY LOC: MS3 U#:[id number] AGE/SX: 89/M ROOM: [facility] [place] RE07/01/[address]: Dr. Nick Villanueva MD : [id number] BED: 1 DIS: 07/02/2024 SPEC #: [id number] RECD: 07/01/24 13:18 STATUS: IRMA LÓPEZ #: [id number] VIVIANA: 07/01/24 11:[address]: Nick Villanueva DEPT: SURGICAL PATHOLOGY RECD BY: Lorene Vargas ENTERED: 07/02/24 09:10 SP TYPE: TURP OTHR DR: Dr. Cory Mckeon MD Tissues: Prostate, NOS Procedures: Surgery Specimen Level IV HEADER OPERATION: Transurethral resection prostate PRE-OP DIAGNOSIS: Benign prostate hyperplasia TISSUE SUBMITTED: Prostate tissue MICROSCOPIC DIAGNOSIS Prostate, transurethral resection: Prostatic adenocarcinoma. See synoptic report below. IQRA/ 07/03/2024 COMMENT PROSTATE CANCER (TUR) SUMMARY: Procedure - transurethral resection of prostate (TURP) Histologic type - Prostatic Adenocarcinoma Histologic grade (Tran Pattern): 7 (3+4) Percent of pattern 4- 50% Percent of pattern 5- 0% Intraductal carcinoma- Not identified Estimated % of tissue involved by carcinoma: 20% Periprostatic fat invasion - Not applicable Seminal vesicle invasion - Not applicable Lymph vascular invasion - Not identified Perineural invasion - Not identified Additional pathologic findings - Chronic inflammation and benign nodular hyperplasia Treatment effect - Unknown The above summary is in compliance with [employer] [place] (CAP) Cancer Protocols Checklist and [place] Joint Committee on Cancer (AJCC), Staging Manual, 8th Ed. Immunohistochemistry ([id number]) supports the above diagnosis. Case has been reviewed in consultation with Dr. Wells who concurs with the above diagnosis. IDC:[id number] MICROSCOPIC DESCRIPTION Slides are reviewed. GROSS DESCRIPTION Received is one container labeled with the patient's name and designated prostate tissue. The specimen consists of multiple irregular fragments of pink-dubon, rubbery, soft tissue that in aggregate weigh 14.3 gm and measure in aggregate 5.0 x 4.0 x 3.0 cm. Licensed Direct Entry Midwife tissue is submitted in ten cassettes. FLACO/ 07/02/2024 TC:0 CPT: 90304
--- NOTE | 2024-07-01 12:24 | PCM.POST.ANE ---
Anesthesia: Postop Eval I Current Vital Signs Temperature: 97.1 F Pulse Rate: 53 Blood Pressure: 120/72 Respiratory Rate: 14 Pulse Ox: 93 Oxygen Delivery Method: Nasal Cannula Oxygen Flow Rate (L/min): 4 Assessment Airway patent: Yes Spontaneous unlabored respirations: Yes Mental status: Awake and Calm nausea: No Vomiting: No Anesthesia Complication: No Fluid Hydration Crystalloid volume administer (ml): 250 Total IV fluid infused: 250 Progress Note Anesthesia document: Postop Eval 1 completed: Yes
[2024-07-01] MEDS: Finasteride 5 MG Tablet PO (14:09)
[2024-07-01] MEDS: hydrALAZINE 50 MG Tablet PO ×3 (14:09→21:52)
[2024-07-01] MEDS: amLODIPine 2.5 MG Tablet PO ×2 (14:09→21:55)
[2024-07-01] MEDS: 0.9% Normal Saline (1000mL) 1,000 ML 50 ML IV (14:13)
[2024-07-01] MEDS: Potassium Chloride Oral Tablet 20 MEQ PO (14:14)
[2024-07-01] MEDS: LINAGLIPTIN 5 MG TABLET PO (14:14)
[2024-07-01 16:26] LABS: Bedside Glucose 247 mg/dL (74-106)
--- NOTE | 2024-07-01 16:42 | POSTOPAN2_ITS ---
Anesthesia Postop Eval I Sum Postop Eval Completion status Anesthesia document: Postop Eval 1 completed: Yes Anesthesia Postop Eval I Summary Anesthesia Postop Eval I Summary: Anesthesia Postop Eval I: Assessment Summary Airway patent Yes 07/01/24 12:25 GRAVITY [email or web address] Spontaneous unlabored Yes 07/01/24 12:25 GRAVITY MANAGER.[email or web address] respirations Mental status Awake,Calm 07/01/24 12:25 GRAVITY [email or web address] nausea No 07/01/24 12:25 GRAVITY MANAGER.[email or web address] Vomiting No 07/01/24 12:25 GRAVITY MANAGER.[email or web address] Anesthesia Postop Eval I: Fluid Summary Crystalloid volume administer 250 07/01/24 12:25 GRAVITY MANAGER.GDOTT (ml) Colloids volume administered ( ml) Blood Product volume administered (ml) Total IV fluid infused 250 07/01/24 12:25 GRAVITY MANAGER.GDOTT Anesthesia Postop Eval I: Summary Notes Anesthesia Complication No 07/01/24 12:25 GRAVITY MANAGER.GDOTT Anesthesia Complication Comment: Post-operative progress note Anesthesia: Postop Eval II Evaluation Mental status: Awake and Calm Pain Level: 1 nausea: No Vomiting: No Complications Anesthesia Complication: No
--- NOTE | 2024-07-01 16:42 | PCM.POSTANE2 ---
Anesthesia Postop Eval I Sum Postop Eval Completion status Anesthesia document: Postop Eval 1 completed: Yes Anesthesia Postop Eval I Summary Anesthesia Postop Eval I Summary: Anesthesia Postop Eval I: Assessment Summary Airway patent Yes 07/01/24 12:25 PRODUCTION TOOL ENGINEER.GDOTT Spontaneous unlabored Yes 07/01/24 12:25 PRODUCTION TOOL ENGINEER.GDOTT respirations Mental status Awake,Calm 07/01/24 12:25 PRODUCTION TOOL ENGINEER.GDOTT nausea No 07/01/24 12:25 PRODUCTION TOOL ENGINEER.GDOTT Vomiting No 07/01/24 12:25 PRODUCTION TOOL ENGINEER.GDOTT Anesthesia Postop Eval I: Fluid Summary Crystalloid volume administer 250 07/01/24 12:25 PRODUCTION TOOL ENGINEER.GDOTT (ml) Colloids volume administered ( ml) Blood Product volume administered (ml) Total IV fluid infused 250 07/01/24 12:25 PRODUCTION TOOL ENGINEER.GDOTT Anesthesia Postop Eval I: Summary Notes Anesthesia Complication No 07/01/24 12:25 PRODUCTION TOOL ENGINEER.GDOTT Anesthesia Complication Comment: Post-operative progress note Anesthesia: Postop Eval II Evaluation Mental status: Awake and Calm Pain Level: 1 nausea: No Vomiting: No Complications Anesthesia Complication: No
[2024-07-01] MEDS: Furosemide 40 MG Tablet PO (16:53)
[2024-07-01] MEDS: Cefazolin 1 GM/50 ML BAG IV (19:23)
[2024-07-01] MEDS: Gabapentin 400 MG Capsule PO (21:43)
[2024-07-01] MEDS: Insulin Glargine-YFGN 100 UNIT/ML Pen 8 UNIT SC (21:54)
[2024-07-01] MEDS: Pravastatin 40 MG Tablet PO (21:55)
[2024-07-01] MEDS: Latanoprost 0.005% 1 Bottle 1 DRP OPHTHALMIC (21:55)
[2024-07-01] MEDS: Acetaminophen 325 MG Tablet PO (21:56)
[2024-07-01] MEDS: Glucerna Shake 120 ML LIQUID PO (22:07)
[2024-07-01 22:39] LABS: Bedside Glucose 265 mg/dL (74-106)
[2024-07-02] VITALS (7 sets, daily range): BP systolic 123–131; BP diastolic 64–70; PULSE 49–75; RESP 16–18; TEMP 36.5–36.6; O2SAT 98–99
[2024-07-02] MEDS: Cefazolin 1 GM/50 ML BAG IV (02:34)
[2024-07-02] MEDS: Acetaminophen 325 MG Tablet PO (06:18)
[2024-07-02] MEDS: Menthol/Lanolin/Calamine/Znox 113 GM Tube 1 APPLIC TOPICAL ×2 (06:19→07:46)
[2024-07-02 06:50] LABS: Bedside Glucose 132 mg/dL (74-106)
--- NOTE | 2024-07-02 07:12 | PCM.PN.GU ---
Subjective Subjective Status post TURP off irrigation urine is lightly tinged blood but not too bad. Will have then nurse remove the catheter this morning for a voiding trial if he is able to urinate he can go home without a catheter if he cannot urinate you will need to go home with a catheter. Objective Data Objective Data Vital Signs: Vital Signs Temp Pulse Resp BP Pulse Ox O2 Del Method O2 Flow Rate 98 F 75 16 125/67 H 99 Nasal Cannula 2 07/02/24 06:39 07/02/24 06:39 07/02/24 06:39 07/02/24 06:39 07/02/24 06:39 07/02/24 06:39 07/02/24 06:39 Oxygen Flow Rate (L/min) 2 Oxygen Delivery Method Nasal Cannula Weight: 87 kg Body Mass Index (BMI) 25.2 Intake & Output: Intake and Output for Last 24 Hours 06/30/24 07/01/24 07/02/24 23:59 23:59 23:59 Intake Total 1051.09 / 1051.09 650.75 / 650.75 Output Total 5300 / 5300 Balance -4248.91 / -4248.91 650.75 / 650.75 Lab / Micro Data 06/25/24 12:01 06/25/24 12:01 Labs: Laboratory Results - last 24 hr 07/01/24 09:38: POC Glucose 101 07/01/24 15:51: POC Glucose 247 H 07/01/24 21:50: POC Glucose 265 H 07/02/24 06:21: POC Glucose 132 H
[2024-07-02] MEDS: Furosemide 40 MG Tablet PO (07:45)
[2024-07-02] MEDS: hydrALAZINE 50 MG Tablet PO (07:45)
[2024-07-02] MEDS: Potassium Chloride Oral Tablet 20 MEQ PO (07:45)
[2024-07-02] MEDS: LINAGLIPTIN 5 MG TABLET PO (07:46)
[2024-07-02] MEDS: Glucerna Shake 120 ML LIQUID PO (07:47)
[2024-07-02] MEDS: Pantoprazole Sodium 40 MG Tablet PO (07:47)
[2024-07-02] MEDS: Finasteride 5 MG Tablet PO (07:47)
[2024-07-02] MEDS: Amiodarone 200 MG Tablet PO (07:47)
--- NOTE | 2024-07-02 10:08 | CASEMGMT ---
YONIS ELLIS NOTE: Pt being discharged home. YONIS ELLIS to room to discuss discharge planning. Pt sitting up in chair in room. Introduced self and role. Pt lives w/his in one-story home w/basement and 3 steps to enter. Has chair lift to basement that he uses when he has to go down to check on things such as the water softener and for laundry, but family does mostly. States does okay w/the steps to enter home and family can assist, if needed. One of his family members will take him home today. Pt reports being indep w/ADL's, but does sponge-bath d/t fear of falling in the shower. Family supportive. Grandson, Pa Snow, manages his medications and family assists w/meals. He has 2 WW's, plenty of canes, raised toilet seat, and shower chair. He also has a functioning glucometer w/supplies and has all insulin/needles/medications needed. He has O2 through [employer] @ 2 l/m via [place] and family can bring portable O2 tank to the hospital for him to go home on. He is active w/[facility] and wishes to resume w/them. Treva, dc housing assistant property manager, to notify them of pt's OBS admission and plan for dc home today. Pt states he feels safe to discharge home today and denies having any discharge needs/concerns. Jason AMAYA RN, CM
--- NOTE | 2024-07-02 10:49 | PHA.DC.MR.R ---
Pharmacy [place] Med Reconciliation Pharmacy Service has performed discharge medication reconciliation for this patient. No new medications at time of discharge medication review. Medications reviewed are from previously reported home medications. The patient's discharge medication list was reviewed for discrepancies and discrepancies were resolved. Medications at Discharge Home Medications pravastatin 40 mg tablet 40 mg PO QHS cholesterol 05/14/16 cholecalciferol (vitamin D3) 25 mcg (1,000 unit) tablet 1,000 unit PO DAILY vitamin 07/16/16 cyanocobalamin (vitamin B-12) 1,000 mcg tablet 1,000 mcg PO DAILY supplement 07/16/16 sitagliptin phosphate 50 mg tablet 50 mg PO DAILY diabetes 06/25/19 docusate sodium 100 mg capsule (Colace) 100 mg PO BID PRN sool softener 09/11/19 ferrous sulfate 325 mg (65 mg iron) tablet (Feosol) 325 mg PO BID iron supplement 09/11/19 folic acid 400 mcg tablet 800 mcg PO DAILY vitamin 09/11/19 insulin glargine 100 unit/mL (3 mL) subcutaneous pen 8 unit subcut QHS diabetes 09/11/19 blood sugar diagnostic (True Metrix Glucose Test Strip) 03/18/24 gabapentin 400 mg capsule 400 mg PO QHS nerve pain 03/18/24 latanoprost 0.005 % eye drops 1 drp ophthalmic (eye) Q eye health 03/18/24 pen needle, diabetic 31 gauge x 3/16 (Droplet Pen Needle) 03/18/24 potassium chloride 20 mEq tablet,extended release(part/cryst) 20 meq PO DAILY supplement 03/18/24 furosemide 40 mg tablet (Lasix) 40 mg PO BIDCM Edema #120 tabs 03/20/24 hydralazine 50 mg tablet 50 mg PO 4X/DAY BP 04/02/24 pantoprazole 40 mg tablet,delayed release 40 mg PO DAILY 30 days #30 tabs 05/05/24 finasteride 5 mg tablet 5 mg PO DAILY 30 days #30 tabs 05/22/24 magnesium chloride 64 mg (magnesium chloride) tablet,delayed release (Mag 64) 64 mg PO BID Supplement #60 tabs 05/22/24 amlodipine 5 mg tablet 2.5 mg (1/2 x 5 mg) PO HS 30 days #15 tabs 05/27/24 amiodarone 200 mg tablet 200 mg PO DAILY #90 tabs 06/15/24
--- NOTE | 2024-07-02 10:53 | CASEMGMT ---
Discharge Planning Resumption HH referral sent via [facility] to [facility]. Treva Snyder DC Planning Asst.
[2024-07-02 12:06] LABS: Bedside Glucose 139 mg/dL (74-106)
== END 2024-07-02 13:50 | disposition home or self-care (01) ==
LOC: SDC 12:22 → MS3 12:22
PROVIDERS: Anesthesiology; Admitting Provider Urology; PCP Family Medicine; Referring Provider Urology; Visit Provider Urology
PROC: (CPT 52601; principal; 2024-07-01 11:15)
DX: C61 Malignant neoplasm of prostate (principal); I13.0 Hypertensive heart and chronic kidney disease with heart failure and stage 1 through stage 4 chronic kidney disease, or unspecified chronic kidney disease; I50.32 Chronic diastolic (congestive) heart failure; E11.22 Type 2 diabetes mellitus with diabetic chronic kidney disease; Z79.4 Long term (current) use of insulin; N18.30 Chronic kidney disease, stage 3 unspecified; E78.00 Pure hypercholesterolemia, unspecified; Z79.84 Long term (current) use of oral hypoglycemic drugs; D50.9 Iron deficiency anemia, unspecified; Z63.8 Other specified problems related to primary support group; I25.10 Atherosclerotic heart disease of native coronary artery without angina pectoris; Z87.891 Personal history of nicotine dependence; N40.1 Benign prostatic hyperplasia with lower urinary tract symptoms; R33.8 Other retention of urine; Z79.899 Other long term (current) drug therapy
CPT/HCPCS: 52601; 36415; 80048; 80076; 82962; 83036; 85027; 85610; 85730; 88305; 88341; 88342; 94640; 94668; 96365; 96366; 97162; 97166; 99221; J7030; J7120; G0378; J2405

== ENCOUNTER 2024-07-10 11:30 | Outpatient (RCR) | payer MEDICARE, SELFPAY ==
[2024-06-19 10:05] VITALS: BP 127/64; PULSE 61; RESP 18; TEMP 35.8; BMI 25.4
--- NOTE | 2024-06-19 13:50 | PCM.WC.HP ---
History of Present Illness Date of Service: 06/19/24 Chief Complaint: pressure ulcers of sacrum History of Wound: Joel is an 89 yo gentleman that presents to the wound healing center today for evaluation and treatment of ulcers of his sacral area that have been present for several weeks. He is referred by Dr. Mckeon, his PCP. He is here today with his Lia and his son Vin. He was hospitalized at the beginning of March for a few days due to A. fib and CHF exacerbation and was stabilized and discharged to have pacemaker placement as outpatient by cardiology but he was doing well on medical treatment on follow up and they decided to hold off on pacemaker placement. He returned to hospital again at the end of March with decompensated CHF and hypoxia as well as possible GI bleed and dysphagia with possible aspiration pneumonia. He was hospitalized from 04/13/24 through 04/23/24 and underwent pacemaker placement, EGD and medical treatment. He was then transferred to transitional care unit for Rehab and was there until 05/25/24 when he returned home with Home Health for continued PT/OT and correction to help manage his CHF. His home health is [facility] and they recommended wound care referral due to sacral ulcer. His family is very supportive and he has help from his son and grandson as well as his and other children. He has been progressing well with his mobility and function and is now able to stand on his own and go to the bathroom as well as walk around the house with a walker. The ulcer cluster has been worsening but they have been applying calmoseptine and covering with a foam dressing daily. He admits pain to the area but denies heavy drainage or odor. He is continent of urine and stool. He has been sleeping in a recliner due to his CHF and orthopnea. He is on continuous oxygen therapy via nasal cannula. They have been trying different pillows to help offload the sacral area. He is unable to sleep in bed due to the orthopnea. He also has comorbidities of DM (controlled) Last A1C 5.5% 04/16/24, CKD stage 3b, hyperlipidemia. FORMERLY [facility], 1928–1983 Medical History Atrial fibrillation with slow ventricular response Presence of cardiac pacemaker Hypothyroidism Non-smoker Peripheral vascular disease Prostate cancer Lumbar stenosis Gout DDD (degenerative disc disease) Carotid artery stenosis Chronic diastolic (congestive) heart failure Non-rheumatic aortic stenosis Atherosclerosis of coronary artery of [place] heart without angina pectoris Secondary pulmonary arterial hypertension Essential (primary) hypertension Left bundle branch block Stool guaiac positive Iron deficiency anemia Personal history of colonic polyps History of malignant neoplasm of colon Dysphasia Chronic kidney disease, stage III (moderate) Thoracic aortic aneurysm without rupture Colon cancer, ascending Dyslipidemia Type II diabetes mellitus Home Medications ?Medication ?Instructions ?Recorded ?Last Taken ?Type pravastatin 40 mg tablet 40 mg PO QHS cholesterol 05/14/16 04/22/24 History cholecalciferol (vitamin D3) 25 1,000 unit PO DAILY vitamin 07/16/16 04/23/24 08:25 History mcg (1,000 unit) tablet cyanocobalamin (vitamin B-12) 1,000 mcg PO DAILY supplement 07/16/16 04/23/24 08:25 History 1,000 mcg tablet metformin 500 mg 24 hr 500 mg PO DAILY diabetes 07/16/16 04/14/24 History tablet,extended release (gastric retention) sitagliptin phosphate 50 mg tablet 50 mg PO DAILY diabetes 06/25/19 04/23/24 08:25 History docusate sodium 100 mg capsule 100 mg PO BID PRN sool softener 09/11/19 Unknown History (Colace) ferrous sulfate 325 mg (65 mg 325 mg PO BID iron supplement 09/11/19 04/23/24 08:25 History iron) tablet (Feosol) folic acid 400 mcg tablet 800 mcg PO DAILY vitamin 09/11/19 04/12/24 History insulin glargine 100 unit/mL (3 8 unit subcut QHS diabetes 09/11/19 04/22/24 History mL) subcutaneous pen blood sugar diagnostic (True 03/18/24 Unknown History Metrix Glucose Test Strip) gabapentin 400 mg capsule 400 mg PO QHS nerve pain 03/18/24 04/22/24 History latanoprost 0.005 % eye drops 1 drp ophthalmic (eye) QHS eye 03/18/24 04/22/24 History health pen needle, diabetic 31 gauge x 03/18/24 Unknown History 01/31 (Droplet Pen Needle) potassium chloride 20 mEq 20 meq PO DAILY supplement 03/18/24 04/23/24 08:15 History tablet,extended release(part/cryst) furosemide 40 mg tablet (Lasix) 40 mg PO BIDCM Edema #120 tabs 03/20/24 04/12/24 Rx hydralazine 50 mg tablet 50 mg PO 4X/DAY BP 04/02/24 04/23/24 14:25 History acetaminophen 500 mg tablet 1,000 mg (2 x 500 mg) PO Q6H PRN 05/05/24 Unknown Rx PRN Pain Score 1-10 #0 tabs pantoprazole 40 mg tablet,delayed 40 mg PO DAILY 30 days #30 tabs 05/05/24 Unknown Rx release tamsulosin 0.4 mg capsule 0.8 mg (2 x 0.4 mg) PO QHS 30 days 05/05/24 Unknown Rx #60 caps nitrofurantoin 100 mg PO BID 5 days #10 caps 05/07/24 Unknown Rx monohydrate/macrocrystals 100 mg capsule finasteride 5 mg tablet 5 mg PO DAILY 30 days #30 tabs 05/22/24 Unknown Rx magnesium chloride 64 mg 64 mg PO BID Supplement #60 tabs 05/22/24 Unknown Rx (magnesium chloride) tablet,delayed release (Mag 64) probenecid 500 mg tablet 500 mg PO DAILY gout #30 tabs 05/22/24 Unknown Rx amlodipine 5 mg tablet 2.5 mg (1/2 x 5 mg) PO HS 30 days 05/27/24 Unknown Rx #15 tabs amiodarone 200 mg tablet 200 mg PO DAILY #90 tabs 06/15/24 Unknown Rx Allergy/AdvReac Type Severity Reaction Status Date / Time Milk Containing Products AdvReac NEEDS Verified 06/19/24 10:21 (Dairy) (Milk Containing FOLLOW-UP Products) quinapril (From Accupril) AdvReac Other Verified 06/19/24 10:21 Family History Mother Colon cancer Heart disease Hypertension CAD (coronary artery disease) Father Cancer prostate CVA (cerebral vascular accident) CAD (coronary artery disease) Brother CAD (coronary artery disease) CABG Brother CAD (coronary artery disease) CABG Surgical History History of left heart catheterization (07/2001) H/O colectomy S/P colonoscopy S/P cataract extraction Status post colectomy Social History household members: spouse Smoking Status: Former smoker how long ago did patient quit smokin years ago alcohol intake: never substance use type: does not use ROS Constitutional Constitutional: Denies chills, fatigue or fever(s) Eyes Eyes: Denies blurry vision, change in vision or loss of vision ENT HEENT: Denies dysphagia, hearing loss or sore throat Cardiovascular Cardiovascular: Denies chest pain, edema or palpitations Respiratory/Chest Respiratory/Chest: Denies dry cough, dyspnea, dyspnea on exertion, productive cough or wheezing Gastrointestinal Gastrointestinal: Denies diarrhea, nausea or vomiting Genitourinary Genitourinary: Denies dysuria or polyuria Musculoskeletal Musculoskeletal: Denies arthralgias, joint stiffness or muscle weakness Integumentary Integumentary: Reports erythema and wounds Neurologic Neurologic: Denies dizziness, memory loss or weakness Psychiatric Psychiatric: Denies homicidal ideation or suicidal ideation Endocrine Endocrinology: Denies polydipsia, polyphagia or polyuria Hematologic/Lymphatic Hematologic/Lymphatic: Denies easy bleeding or easy bruising Allergic/Immunologic Allergic/Immunologic: Denies throat swelling, tongue swelling or urticaria Vital Signs Vital Signs Vital Signs: 06/19/24 10:05 Temperature 96.5 F L Temperature Source Temporal Pulse Rate 61 Respiratory Rate 18 Blood Pressure 127/64 H Blood Pressure Mean 85 Blood Pressure Source Monitor Blood Pressure Position Semi-Fowlers Blood Pressure Location Left Arm Oxygen Delivery Method Nasal Cannula Oxygen Flow Rate (L/min) 2 Weight Weight: 87.543 kg Body Mass Index (BMI) 25.4 Physical Exam Const alert, oriented x3 and no apparent distress General Appearance: cooperative and comfortable HEENT normocephalic and head/scalp atraumatic Resp normal respiratory effort Effort and Inspection: able to speak in complete sentences Cardio regular rate and regular rhythm Skin Wounds: wounds noted Wound Narrative: as in clinical panel Psych mental status grossly normal, thought process normal, cooperative and affect normal Debridement Note Debridement Note Wound debrided: sacral ulcer cluster Laterality: Not Applicable Wound Grade/Stage: Stage 3 Type of Debridement: Excisional debridement Anesthesia Used: 4% Lidocaine Solution, 5% Lidocaine Gel and Cetacaine Depth: Down to and including healthy tissue and in the subcutaneous layer Percentage of wound debrided: 100 Instrument Used: 3mm curette Tissue Removed: Yellow slough, devitalized tissue Severity: Fat Layer Exposed Amount of bleeding with debridement: Mild Bleeding Controlled with: Compression and gauze Patient tolerated procedure: Patient tolerated procedure well Post-Debridement Measurements and Additional Note: Post-Debridement Measurements/Treatment WC - Nurse 1 - General Ulcer Assessment Start: 06/19/24 10:05 Freq: Status: Active Protocol: ZAFAR Activity Type Activity Date Activity User E-sign Co-sign Detail Recorded Client Recorded Date Recorded By Document 06/19/24 10:05 KW bgj 06/19/24 10:20 KW 06/19/24 10:05 WC - Today's Visit Information Type of service Initial Visit Arrival Mode Ambulatory, Walker Accompanied by , SON Patient Identification Verified (Name & Yes ) Finger Stick Blood Sugar(mg/dl) (if 116 indicated): Blood Sugar Stated by Patient Height and Weight Height 6 ft 1 in Weight 87.543 kg Weight in Pounds 193.0 lbs Weight Measurement Method Estimated by Patient Body Mass Index (BMI) 25.4 BMI Classification Overweight BSA - Sergio 2.12 Vital Signs Temperature (97.8 F-99.1 F) 96.5 F L Temperature Source Temporal Pulse Rate (60-100) 61 Pulse Location Monitor Respiratory Rate (12-18) 18 Respiratory rate source Observation Oxygen Delivery Method Nasal Cannula O2 L/MIN 2 Blood Pressure (90/60-120/80) 127/64 H Blood Pressure Mean 85 Source Monitor Position Semi-Fowlers Blood Pressure Location Left Arm History Since Last Visit- (Skip if this is Patient's initial visit) Left Footwear Regular Shoe Right Footwear Regular Shoe Pain Scale: 0-10 Numeric Is Patient Pain Free? Yes Communication Assessment Preferred language [place] Able to Read Yes Able to Write Yes Communication Tools None Caregiver Communication Skills No Impairment Impairment Right Hearing Abillity Hard of Hearing Left Hearing Abillity Hard of Hearing Visual Assistive Devices Glasses Teaching Assessment Preferences Verbal,Written, Demonstration Barriers to Learning None Readiness To Learn Excellent Willingness to Engage in Self Management High Activies Readiness to Engage in Self Management High Activities Anxiety Level Calm Cooperation Cooperative Perception Coherent Interest in Health Problem Asks Questions Education Importance Acknowledges Need Does Patient Smoke tobacco or other Yes substances Is Patient Diabetic Yes Culture/Sabianism/Winemaker Cultural/Sabianism Needs that may affect No Treatment Plan Would you allow our hospital banking representative to No meet you for the purpose of spiritual/ emotional support? Winemaker to contact place of religious No ESSENCE - Nurse 1 - General Ulcer Measurement Start: 06/19/24 10:05 Freq: Status: Active Protocol: Activity Type Activity Date Activity User E-sign Co-sign Detail Recorded Client Recorded Date Recorded By Document 06/19/24 10:05 KW bgj 06/19/24 10:20 KW 06/19/24 10:05 Wound Center Nurse 1 #1 SACRAL CLUSTER -Current Size (cm) - Length 5.5 -Current Size (cm) - Width 5.5 -Current Size (cm) - Depth 0.3 -Total Square Cm 30.25 -Date of Last Picture (Recall this 06/19/24 field) -Exudate Amt Small -Exudate Type Serosanguineous -Wound Margin Distinct, Outline Attached -Granulation Amt Large (67-100%) -Granulation Quality Red -Texture (Essie-wound Skin Appearance) Assessed -Moisture (Essie-wound Skin Appearance) Assessed -Color (Essie-wound Skin Appearance) Assessed -Temperature (Essie-wound Skin No Abnormality Appearance) (Pt Warm) -Tenderness on Palpation (Essie-wound No Skin Appearance) -Ulcer Cleansing Soap and Water -Foul Odor after Cleansing No -Anesthetic Used 5% Lidocaine Gel WC - Nurse 2 - General Ulcer CM Notes Start: 06/19/24 10:05 Freq: Status: Active Protocol: Activity Type Activity Date Activity User E-sign Co-sign Detail Recorded Client Recorded Date Recorded By Document 06/19/24 11:22 JF 0000 06/19/24 11:25 JF 06/19/24 11:22 Wound Center Nurse 2 -Time 11:23 -Correct Patient Yes -Correct Side, Site, Position Yes -Correct Procedure Yes -Procedure Performed Yes -Type of Procedure Debridement -Clinical Debridement Subcutaneous -Tissue Removed Subcutaneous -Post Debridement (cm) - Length 5 -Post Debridement (cm) - Width 4.5 -Post Debridement (cm) - Depth 0.3 -Total Square (Post) (cm) 22.5 -Area of Debridement (cm) - Length 5 -Area of Debridement (cm) - Width 4.5 -Total Square (Area) (cm) 22.5 -Tunneling No -Undermining/Tunneling No -Circular Undermining No -Wound/Ulcer Outcome Not Healed -Ulcer Cleansing Rinsed/ Irrigated with Saline -Foul Odor after Cleansing No -Bioengineered Tissue No -Bleeding Controlled with Pressure -Treatment Response Procedure Tolerated Well -Offloading No -Debridement - Subq, 1st 20sq cm Yes Pain Scale: 0-10 Numeric Is Patient Pain Free? Yes - Nurse 3 - General Ulcer D/C NN Start: 06/19/24 10:05 Freq: Status: Active Protocol: Activity Type Activity Date Activity User E-sign Co-sign Detail Recorded Client Recorded Date Recorded By Document 06/19/24 11:30 JF 0000 06/19/24 11:32 06/19/24 11:30 Wound Care Center Nurse 3 #1 SACRAL CLUSTER -Ulcer Cleansing Rinsed/ Irrigated with Saline -Foul Odor after Cleansing No -Primary Dressing Applied Mepilex Border, Promogran -Mepilex Border 1 -Promogran 1 Pain Scale: 0-10 Numeric Is Patient Pain Free? Yes WC - Visit Discharge Discharge Condition Stable Ambulatory Status Walker, Wheelchair Transportation Private Auto Accompanied by son and Medication Reconcilliation completed & Yes provided to patient/care provider Clinical Summary of Care Provided Yes Assessment/Plan Assessment/Plan (1) Chronic kidney disease, stage 3b: CODE(S): N18.32 - Chronic kidney disease, stage 3b (2) HFrEF (heart failure with reduced ejection fraction): CODE(S): I50.20 - Unspecified systolic (congestive) heart failure (3) Essential (primary) hypertension: CODE(S): I10 - Essential (primary) hypertension (4) Type II diabetes mellitus: CODE(S): E11.9 - Type 2 diabetes mellitus without complications QUALIFIERS: Diabetes mellitus complication status: with kidney complications Diabetes mellitus complication detail: with chronic kidney disease Diabetes mellitus ferry terminal agent insulin use: with ferry terminal agent use Chronic kidney disease stage: stage 3 (moderate) Qualified Code(s): E11.22 - Type 2 diabetes mellitus with diabetic chronic kidney disease (5) Hyperlipidemia: CODE(S): E78.5 - Hyperlipidemia, unspecified QUALIFIERS: Hyperlipidemia type: mixed hyperlipidemia Qualified Code(s): E78.2 - Mixed hyperlipidemia (6) Debility: CODE(S): R53.81 - Other malaise (7) Presence of cardiac pacemaker: CODE(S): Z95.0 - Presence of cardiac pacemaker (8) Stage III pressure ulcer of sacral region: CODE(S): L89.153 - Pressure ulcer of sacral region, stage 3 PLAN: Plan Debridement performed today in clinic as annotated above. At home wound-care instructions: Will have him use dressing of Promogran for light drainage and cover with foam silicone bordered dressing changed daily. Wash with soap and water and pat dry before dressing change. Keep dressing clean and dry. Off-loading: The patient was instructed to avoid pressure and friction on the affected areas. Reposition every 2 hours at minimum. Avoid prolonged standing and/or dangling of legs. When seated, feet should be elevated at chest level. Frequent ambulation is encouraged. We discussed the importance of offloading and made several suggestions of ways to offload, including propping or shifting hips to one side in recliner or standing during commercials when watching TV. Diet: Patient encouraged to increase protein intake while taking caution to avoid high carbohydrate and/or sugar intake. Samples given of Rogelio. Labs/cultures/imaging: Wound culture taken today and will treat based on results. Follow-up: Return in 1 week for wound care follow up with wound care provider due to my absence next Saturday and then will have him follow up with me in 3 weeks. Return sooner or report to the emergency room should symptoms worsen, or new symptoms arise. Note: [employer] speech recognition bench molder software was used to create portions of this document. Sound-alike and misspelled words, as well as other bench molder errors may be contained in the documentation.
[2024-06-25 09:44] VITALS: BP 114/50; PULSE 55; RESP 18; TEMP 36.3; BMI 25.4
--- NOTE | 2024-06-25 10:39 | PN.PCM_ITS ---
History of Present Illness Date of Service: 06/25/24 Chief Complaint: pressure ulcers of sacrum History of Wound: Joel is an 89 yo gentleman that presents to the wound healing center today for evaluation and treatment of ulcers of his sacral area that have been present for several weeks. He is referred by Dr. Mckeon, his PCP. He is here today with his Lia and his son Vin. He was hospitalized at the beginning of March for a few days due to A. fib and CHF exacerbation and was stabilized and discharged to have pacemaker placement as outpatient by cardiology but he was doing well on medical treatment on follow up and they decided to hold off on pacemaker placement. He returned to hospital again at the end of March with decompensated CHF and hypoxia as well as possible GI bleed and dysphagia with possible aspiration pneumonia. He was hospitalized from 04/13/24 through 04/23/24 and underwent pacemaker placement, EGD and medical treatment. He was then transferred to transitional care unit for Rehab and was there until 05/25/24 when he returned home with Home Health for continued PT/OT an d assisted to help manage his CHF. His home health is [facility] and they recommended wound care referral due to sacral ulcer. His family is very supportive and he has help from his son and grandson as well as his and other children. He has been progressing well with his mobility and function and is now able to stand on his own and go to the bathroom as well as walk around the house with a walker. The ulcer cluster has been worsening but they have been applying calmoseptine and covering with a foam dressing daily. He admits pain to the area but denies heavy drainage or odor. He is continent of urine and stool. He has been sleeping in a recliner due to his CHF and orthopnea. He is on continuous oxygen therapy via nasal cannula. They have been trying different pillows to help offload the sacral area. He is unable to sleep in bed due to the orthopnea. He also has comorbidities of DM (controlled) Last A1C 5.5% 04/16/24, CKD stage 3b, hyperlipidemia. Progress of Wound: Courtesy Visit for Dr. Salgado: Here for follow-up stage III sacral ulcer. and son/grandson also present. He states that they have been doing dressing changes as recommended. He reports less pain/burning to the area. Still sleeps in his recliner but per his son, repositions every few hours. Presents with a new left forearm wound. Wound happened on Saturday after he fell against a trash can. No dressing changes at home. Objective Data Objective Data Vital Signs: Vital Signs Temp Pulse Resp BP O2 Del Method O2 Flow Rate 97.3 F L 55 L 18 114/50 L Room Air 2 06/25/24 09:44 06/25/24 09:44 06/25/24 09:44 06/25/24 09:44 06/25/24 09:44 06/19/24 10:05 Oxygen Flow Rate (L/min) 2 Oxygen Delivery Method Room Air Weight: 193 lb Body Mass Index (BMI) 25.4 Lab / Micro Data Micro: Microbiology 06/19/24 11:19 Ulcer, Decubitus - Other Gram Stain - Final 06/19/24 11:19 Ulcer, Decubitus - Other Wound Culture - Final Presumptive C albicans 06/19/24 11:19 Ulcer, Decubitus - Other Anaerobic Culture - Final No anaerobic bacteria isolated. Charges/Coding Procedures Integumentary 111xxx-113xx: 49401 Priscilla subq tissue 20 sq cm/< Add On Codes: 99496 Priscilla subq tissue add-on (x1. Additional square centimeter debrided, please refer to clinical note.) Physical Exam Const alert, oriented x3 and no apparent distress General Appearance: cooperative and comfortable HEENT normocephalic and head/scalp atraumatic Neck General: normal visual inspection Resp normal respiratory effort Effort and Inspection: able to speak in complete sentences Skin Wounds: wounds noted size Size: See clinical note, bed granulating well, drainage bloody, margins well approximated and open Wound Narrative: as in clinical panel Psych mental status grossly normal, thought process normal, cooperative and affect normal Debridement Note Debridement Note Wound debrided: Sacral Cluster Type of Debridement: Excisional debridement Anesthesia Used: 4% Lidocaine Solution Depth: Down to and including healthy tissue and in the subcutaneous layer Percentage of wound debrided: 100 Instrument Used: 3mm curette Tissue Removed: Slough and devitalized tissue Severity: Fat Layer Exposed Amount of bleeding with debridement: Mild Bleeding Controlled with: Pressure Patient tolerated procedure: Patient tolerated procedure well Post-Debridement Measurements and Additional Note: Post-Debridement Measurements/Treatment ESSENCE - Nurse 1 - General Ulcer Assessment Start: 06/19/24 10:05 Freq: Status: Active Protocol: LOSEXT Activity Type Activity Date Activity User E-sign Co-sign Detail Recorded Client Recorded Date Recorded By Document 06/19/24 10:05 KW bgj 06/19/24 10:20 KW Document 06/25/24 09:44 KW xfh 06/25/24 09:55 KW 06/19/24 06/25/24 10:05 09:44 WC - Today's Visit Information Type of service Initial Visit Follow-up Visit (Physician/CERTIFIED NURSE AIDE ) Arrival Mode Ambulatory, Wheelchair Walker Accompanied by , SON Patient Identification Verified (Name & Yes Yes ) Finger Stick Blood Sugar(mg/dl) (if 116 indicated): Blood Sugar Stated by Patient Height and Weight Height 6 ft 1 in Weight 193 lb Weight in Pounds 193.0 lbs Weight Measurement Method Estimated by Patient Body Mass Index (BMI) 25.4 25.4 BMI Classification Overweight Overweight BSA - Sergio 2.12 Vital Signs Temperature (97.8 F-99.1 F) 96.5 F L 97.3 F L Temperature Source Temporal Temporal Pulse Rate (60-100) 61 55 L Pulse Location Monitor Monitor Respiratory Rate (12-18) 18 18 Respiratory rate source Observation Observation Oxygen Delivery Method Nasal Cannula Room Air O2 L/MIN (L/min) 2 Blood Pressure (90/60-120/80) 127/64 H 114/50 L Blood Pressure Mean (mm Hg) 85 71 Source Monitor Monitor Position Semi-Fowlers Sitting Blood Pressure Location Left Arm Right Arm History Since Last Visit- (Skip if this is Patient's initial visit) Have you changed medications since your No last visit? Any new allergies or adverse reactions No Had a fall/change in ADL's that may Yes increase risk of falls Signs or symptoms of abuse and/or No neglect since last visit Have you been in the hospital since your No last visit? Has dressing in place as prescribed Yes Has compression in place as prescribed Yes Has offloadiing in place as prescribed N/A Experienced any changes in pain level or No management Left Footwear Regular Shoe Regular Shoe Right Footwear Regular Shoe Regular Shoe Pain Scale: 0-10 Numeric Is Patient Pain Free? Yes Yes Communication Assessment Preferred language Gren[place] Able to Read Yes Able to Write Yes Communication Tools None Caregiver Communication Skills No Impairment Impairment Right Hearing Abillity Hard of Hearing Left Hearing Abillity Hard of Hearing Visual Assistive Devices Glasses Teaching Assessment Preferences Verbal,Written, Demonstration Barriers to Learning None Readiness To Learn Excellent Willingness to Engage in Self Management High Activies Readiness to Engage in Self Management High Activities Anxiety Level Calm Cooperation Cooperative Perception Coherent Interest in Health Problem Asks Questions Education Importance Acknowledges Need Does Patient Smoke tobacco or other Yes substances Is Patient Diabetic Yes Culture/Baptist/Concessions Manager Cultural/Baptist Needs that may affect No Treatment Plan Would you allow our hospital environmental intern to No meet you for the purpose of spiritual/ emotional support? Concessions Manager to contact place of orthodox No WC - Nurse 1 - General Ulcer Measurement Start: 06/19/24 10:05 Freq: Status: Active Protocol: Activity Type Activity Date Activity User E-sign Co-sign Detail Recorded Client Recorded Date Recorded By Document 06/19/24 10:05 KW bgj 06/19/24 10:20 KW Document 06/25/24 09:44 KW xfh 06/25/24 09:55 KW 06/19/24 06/25/24 10:05 09:44 Wound Center Nurse 1 #2 LT FOREARM -Current Size (cm) - Length 6.5 -Current Size (cm) - Width 3.5 -Current Size (cm) - Depth 0.1 -Total Square Cm 22.75 -Date of Last Picture (Recall this 06/25/24 field) -Exudate Amt Small -Exudate Type Serosanguineous -Wound Margin Distinct, Outline Attached -Granulation Amt Large (67-100%) -Granulation Quality Red -Texture (Essie-wound Skin Appearance) Assessed -Moisture (Essie-wound Skin Appearance) Assessed -Color (Essie-wound Skin Appearance) Assessed -Temperature (Essie-wound Skin No Abnormality Appearance) (Pt Warm) -Tenderness on Palpation (Essie-wound No Skin Appearance) -Ulcer Cleansing Rinsed/ Irrigated with Saline -Foul Odor after Cleansing No -Anesthetic Used 5% Lidocaine Gel #1 SACRAL CLUSTER -Current Size (cm) - Length 5.5 5.4 -Current Size (cm) - Width 5.5 2.8 -Current Size (cm) - Depth 0.3 0.3 -Total Square Cm 30.25 15.12 -Date of Last Picture (Recall this 06/19/24 field) -Exudate Amt Small Small -Exudate Type Serosanguineous Serosanguineous -Wound Margin Distinct, Distinct, Outline Outline Attached Attached -Granulation Amt Large (67-100%) Large (67-100%) -Granulation Quality Red Red -Texture (Essie-wound Skin Appearance) Assessed Assessed -Moisture (Essie-wound Skin Appearance) Assessed Assessed -Color (Essie-wound Skin Appearance) Assessed Assessed, Erythema -Temperature (Essie-wound Skin No Abnormality No Abnormality Appearance) (Pt Warm) (Pt Warm) -Tenderness on Palpation (Essie-wound No No Skin Appearance) -Ulcer Cleansing Soap and Water Soap and Water -Foul Odor after Cleansing No -Anesthetic Used 5% Lidocaine 5% Lidocaine Gel Gel - Nurse 2 - General Ulcer CM Notes Start: 06/19/24 10:05 Freq: Status: Active Protocol: Activity Type Activity Date Activity User E-sign Co-sign Detail Recorded Client Recorded Date Recorded By Document 06/19/24 11:22 0000 06/19/24 11:25 Document 06/25/24 09:58 [facility] 06/25/24 10:12 06/19/24 06/25/24 11:22 09:58 Wound Center Nurse 2 #2 LT FOREARM -Time 10:06 -Correct Patient Yes -Correct Side, Site, Position Yes -Correct Procedure Yes -Procedure Performed Yes -Type of Procedure Debridement -Clinical Debridement Subcutaneous -Tissue Removed Subcutaneous -Post Debridement (cm) - Length 6.0 -Post Debridement (cm) - Width 3.5 -Post Debridement (cm) - Depth 0.1 -Total Square (Post) (cm) 21.00 -Area of Debridement (cm) - Length 6.0 -Area of Debridement (cm) - Width 3.5 -Total Square (Area) (cm) 21.00 -Tunneling No -Undermining/Tunneling No -Circular Undermining No -Wound/Ulcer Outcome Not Healed -Ulcer Cleansing Rinsed/ Irrigated with Saline -Foul Odor after Cleansing No -Bioengineered Tissue No -Bleeding Controlled with Pressure -Treatment Response Procedure Tolerated Well -Debridement - Subq, 1st 20sq cm No #1 SACRAL CLUSTER -Time 11:23 09:58 -Correct Patient Yes Yes -Correct Side, Site, Position Yes Yes -Correct Procedure Yes Yes -Procedure Performed Yes Yes -Type of Procedure Debridement Debridement -Clinical Debridement Subcutaneous Subcutaneous -Tissue Removed Subcutaneous Subcutaneous -Post Debridement (cm) - Length 5 5.0 -Post Debridement (cm) - Width 4.5 3.0 -Post Debridement (cm) - Depth 0.3 0.3 -Total Square (Post) (cm) 22.5 15.00 -Area of Debridement (cm) - Length 5 5.0 -Area of Debridement (cm) - Width 4.5 3.0 -Total Square (Area) (cm) 22.5 15.00 -Tunneling No No -Undermining/Tunneling No No -Circular Undermining No No -Wound/Ulcer Outcome Not Healed Not Healed -Ulcer Cleansing Rinsed/ Rinsed/ Irrigated with Irrigated with Saline Saline -Foul Odor after Cleansing No No -Bioengineered Tissue No No -Bleeding Controlled with Pressure Pressure -Treatment Response Procedure Procedure Tolerated Well Tolerated Well -Offloading No -Debridement - Subq, 1st 20sq cm Yes Yes -Debridement, SubQ, ea addt'l 20sq cm 1 or part thereof Pain Scale: 0-10 Numeric Is Patient Pain Free? Yes Yes - Nurse 3 - General Ulcer D/C NN Start: 06/19/24 10:05 Freq: Status: Active Protocol: Activity Type Activity Date Activity User E-sign Co-sign Detail Recorded Client Recorded Date Recorded By Document 06/19/24 11:30 JF 0000 06/19/24 11:32 06/19/24 11:30 Wound Care Center Nurse 3 #1 SACRAL CLUSTER -Ulcer Cleansing Rinsed/ Irrigated with Saline -Foul Odor after Cleansing No -Primary Dressing Applied Mepilex Border, Promogran -Mepilex Border 1 -Promogran 1 Pain Scale: 0-10 Numeric Is Patient Pain Free? Yes - Visit Discharge Discharge Condition Stable Ambulatory Status Walker, Wheelchair Transportation Private Auto Accompanied by son and Medication Reconcilliation completed & Yes provided to patient/care provider Clinical Summary of Care Provided Yes Additional Wound Wound debrided: Left Forearm Type of Debridement: Excisional debridement Anesthesia Used: 4% Lidocaine Solution Depth: Down to and including healthy tissue and in the subcutaneous layer Percentage of wound debrided: 100 Instrument Used: 5mm curette and Forceps Tissue Removed: Slough and devitalized tissue Severity: Fat Layer Exposed Amount of bleeding with debridement: Mild Bleeding Controlled with: Pressure Patient tolerated procedure: Patient tolerated procedure well Assessment/Plan Assessment/Plan (1) Stage III pressure ulcer of sacral region: CODE(S): L89.153 - Pressure ulcer of sacral region, stage 3 (2) Penetrating wound of left forearm: CODE(S): S51.832A - Puncture wound without foreign body of left forearm, initial encounter QUALIFIERS: Encounter type: initial encounter Qualified Code(s): S51.832A - Puncture wound without foreign body of left forearm, initial encounter (3) HFrEF (heart failure with reduced ejection fraction): CODE(S): I50.20 - Unspecified systolic (congestive) heart failure (4) Debility: CODE(S): R53.81 - Other malaise PLAN: Plan Debridement done as documented above, procedure was well-tolerated. As above, presents with a new left forearm wound following a fall where he hit his trash can. No dressing changes have been done at home. Quite bloody on initial examination however, this was stopped with pressure. Continue Promogran to sacral ulcer, cover with foam dressing. To left forearm, Aquacel extra daily to twice daily, cover with Adaptic and foam dressing. For stage III sacral ulcer, hospital bed and offloading mattress discussed, son and state that they will think about it. Continue offloading. Continue other chronic wound care as previously discussed. Their questions were answered and they were advised to let us know if they have any further questions or concerns. Follow-up in [address] Salgado or sooner if needed. This note was generated with [employer] dictation software. It may contain incorrect words, spelling, and punctuation that were not noted in checking the note before signing.
--- NOTE | 2024-07-09 09:50 | WC ---
PHOTO 06/25/24 LEFT FOREARM
[2024-07-10 11:47] VITALS: BP 123/54; PULSE 55; RESP 18; TEMP 36.2; BMI 25.4
--- NOTE | 2024-07-10 13:34 | PCM.WC.PN ---
History of Present Illness Date of Service: 06/25/24 Chief Complaint: pressure ulcers of sacrum History of Wound: Joel is an 89 yo gentleman that presents to the wound healing center today for evaluation and treatment of ulcers of his sacral area that have been present for several weeks. He is referred by Dr. Mckeon, his PCP. He is here today with his Lia and his son Vin. He was hospitalized at the beginning of March for a few days due to A. fib and CHF exacerbation and was stabilized and discharged to have pacemaker placement as outpatient by cardiology but he was doing well on medical treatment on follow up and they decided to hold off on pacemaker placement. He returned to hospital again at the end of March with decompensated CHF and hypoxia as well as possible GI bleed and dysphagia with possible aspiration pneumonia. He was hospitalized from 04/13/24 through 04/23/24 and underwent pacemaker placement, EGD and medical treatment. He was then transferred to transitional care unit for Rehab and was there until 05/25/24 when he returned home with Home Health for continued PT/OT and fpc to help manage his CHF. His home health is [facility] and they recommended wound care referral due to sacral ulcer. His family is very supportive and he has help from his son and grandson as well as his and other children. He has been progressing well with his mobility and function and is now able to stand on his own and go to the bathroom as well as walk around the house with a walker. The ulcer cluster has been worsening but they have been applying calmoseptine and covering with a foam dressing daily. He admits pain to the area but denies heavy drainage or odor. He is continent of urine and stool. He has been sleeping in a recliner due to his CHF and orthopnea. He is on continuous oxygen therapy via nasal cannula. They have been trying different pillows to help offload the sacral area. He is unable to sleep in bed due to the orthopnea. He also has comorbidities of DM (controlled) Last A1C 5.5% 04/16/24, CKD stage 3b, hyperlipidemia. Progress of Wound: Joel returns today for follow up of sacral ulcers and left forearm wound. His ulcers are healed as well as his left forearm. Objective Data Objective Data Vital Signs: Vital Signs Temp Pulse Resp BP O2 Del Method O2 Flow Rate 97.1 F L 55 L 18 123/54 H Nasal Cannula 2 07/10/24 11:47 07/10/24 11:47 07/10/24 11:47 07/10/24 11:47 07/10/24 11:47 07/10/24 11:47 Oxygen Flow Rate (L/min) 2 Oxygen Delivery Method Nasal Cannula Weight: 87.543 kg Body Mass Index (BMI) 25.4 Lab / Micro Data Micro: Microbiology 06/19/24 11:19 Ulcer, Decubitus - Other Gram Stain - Final 06/19/24 11:19 Ulcer, Decubitus - Other Wound Culture - Final Presumptive C albicans 06/19/24 11:19 Ulcer, Decubitus - Other Anaerobic Culture - Final No anaerobic bacteria isolated. Charges/Coding Procedures Integumentary 111xxx-113xx: 60238 Priscilla subq tissue 20 sq cm/< Add On Codes: 69841 Priscilla subq tissue add-on (x1. Additional square centimeter debrided, please refer to clinical note.) Physical Exam Const alert, oriented x3 and no apparent distress General Appearance: cooperative and comfortable HEENT normocephalic and head/scalp atraumatic Neck General: normal visual inspection Resp normal respiratory effort Effort and Inspection: able to speak in complete sentences Skin Wounds: wounds noted size Size: See clinical note, bed granulating well, drainage bloody, margins well approximated and open Wound Narrative: as in clinical panel Psych mental status grossly normal, thought process normal, cooperative and affect normal Debridement Note Debridement Note Wound debrided: Sacral Cluster Laterality: Not Applicable Tissue Removed: Slough and devitalized tissue No debridement was completed: No debridement was completed today (ulcers healed) Post-Debridement Measurements and Additional Note: Post-Debridement Measurements/Treatment - Nurse 1 - General Ulcer Assessment Start: 06/19/24 10:05 Freq: Status: Active Protocol: ZAFAR Activity Type Activity Date Activity User E-sign Co-sign Detail Recorded Client Recorded Date Recorded By Document 06/19/24 10:05 KW bgj 06/19/24 10:20 KW Document 06/25/24 09:44 KW xfh 06/25/24 09:55 KW Document 07/10/24 11:47 KW [id number] 07/10/24 11:52 KW 06/19/24 06/25/24 07/10/24 10:05 09:44 11:47 WC - Today's Visit Information Type of service Initial Visit Follow-up Visit Follow-up Visit (Physician/MANAGER FINANCIAL SERVICES (Physician/MANAGER FINANCIAL SERVICES ) ) Arrival Mode Ambulatory, Wheelchair Wheelchair Walker Accompanied by , SON family Patient Identification Verified (Name & Yes Yes Yes ) Finger Stick Blood Sugar(mg/dl) (if 116 indicated): Blood Sugar Stated by Patient Height and Weight Height 6 ft 1 in Weight 87.543 kg Weight in Pounds 193.0 lbs Weight Measurement Method Estimated by Patient Body Mass Index (BMI) 25.4 25.4 25.4 BMI Classification Overweight Overweight Overweight BSA - Sergio 2.12 Vital Signs Temperature (97.8 F-99.1 F) 96.5 F L 97.3 F L 97.1 F L Temperature Source Temporal Temporal Temporal Pulse Rate (60-100) 61 55 L 55 L Pulse Location Monitor Monitor Monitor Respiratory Rate (12-18) 18 18 18 Respiratory rate source Observation Observation Observation Oxygen Delivery Method Nasal Cannula Room Air Nasal Cannula O2 L/MIN (L/min) 2 2 Blood Pressure (90/60-120/80) 127/64 H 114/50 L 123/54 H Blood Pressure Mean (mm Hg) 85 71 77 Source Monitor Monitor Monitor Position Semi-Fowlers Sitting Semi-Fowlers Blood Pressure Location Left Arm Right Arm Right Arm History Since Last Visit- (Skip if this is Patient's initial visit) Have you changed medications since your No No last visit? Any new allergies or adverse reactions No No Had a fall/change in ADL's that may Yes No increase risk of falls Signs or symptoms of abuse and/or No No neglect since last visit Have you been in the hospital since your No No last visit? Has dressing in place as prescribed Yes Yes Has compression in place as prescribed Yes Yes Has offloadiing in place as prescribed N/A N/A Experienced any changes in pain level or No No management Left Footwear Regular Shoe Regular Shoe Regular Shoe Right Footwear Regular Shoe Regular Shoe Regular Shoe Pain Scale: 0-10 Numeric Is Patient Pain Free? Yes Yes Yes Communication Assessment Preferred language Mongolian Able to Read Yes Able to Write Yes Communication Tools None Caregiver Communication Skills No Impairment Impairment Right Hearing Abillity Hard of Hearing Left Hearing Abillity Hard of Hearing Visual Assistive Devices Glasses Teaching Assessment Preferences Verbal,Written, Demonstration Barriers to Learning None Readiness To Learn Excellent Willingness to Engage in Self Management High Activies Readiness to Engage in Self Management High Activities Anxiety Level Calm Cooperation Cooperative Perception Coherent Interest in Health Problem Asks Questions Education Importance Acknowledges Need Does Patient Smoke tobacco or other Yes substances Is Patient Diabetic Yes Culture/Mormon/Aircraft Painter Apprentice Cultural/Mormon Needs that may affect No Treatment Plan Would you allow our [facility] buffing and polishing wheel repairer to No meet you for the purpose of spiritual/ emotional support? Aircraft Painter Apprentice to contact place of gnosticist No WC - Nurse 1 - General Ulcer Measurement Start: 06/19/24 10:05 Freq: Status: Active Protocol: Activity Type Activity Date Activity User E-sign Co-sign Detail Recorded Client Recorded Date Recorded By Document 06/19/24 10:05 KW bgj 06/19/24 10:20 KW Document 06/25/24 09:44 KW xfh 06/25/24 09:55 KW Document 07/10/24 11:47 KW [id number] 07/10/24 11:52 KW 06/19/24 06/25/24 07/10/24 10:05 09:44 11:47 Wound Center Nurse 1 #2 LT FOREARM -Current Size (cm) - Length 6.5 0.1 -Current Size (cm) - Width 3.5 0.1 -Current Size (cm) - Depth 0.1 0.1 -Total Square Cm 22.75 0.01 -Date of Last Picture (Recall this 06/25/24 07/10/24 field) -Exudate Amt Small None Present -Exudate Type Serosanguineous -Wound Margin Distinct, Outline Attached -Granulation Amt Large (67-100%) -Granulation Quality Red -Texture (Essie-wound Skin Appearance) Assessed Assessed -Moisture (Essie-wound Skin Appearance) Assessed Assessed -Color (Essie-wound Skin Appearance) Assessed Assessed -Temperature (Essie-wound Skin No Abnormality No Abnormality Appearance) (Pt Warm) (Pt Warm) -Tenderness on Palpation (Essie-wound No No Skin Appearance) -Ulcer Cleansing Rinsed/ Soap and Water Irrigated with Saline -Foul Odor after Cleansing No No -Anesthetic Used 5% Lidocaine Gel -Wound Comment(s) possibly healed #1 SACRAL CLUSTER -Current Size (cm) - Length 5.5 5.4 0.1 -Current Size (cm) - Width 5.5 2.8 0.1 -Current Size (cm) - Depth 0.3 0.3 0.1 -Total Square Cm 30.25 15.12 0.01 -Date of Last Picture (Recall this 06/19/24 07/10/24 field) -Exudate Amt Small Small None Present -Exudate Type Serosanguineous Serosanguineous -Wound Margin Distinct, Distinct, Distinct, Outline Outline Outline Attached Attached Attached -Granulation Amt Large (67-100%) Large (67-100%) Large (67-100%) -Granulation Quality Red Red [place],Red -Texture (Essie-wound Skin Appearance) Assessed Assessed Assessed -Moisture (Essie-wound Skin Appearance) Assessed Assessed Assessed -Color (Essie-wound Skin Appearance) Assessed Assessed, Assessed Erythema -Temperature (Essie-wound Skin No Abnormality No Abnormality No Abnormality Appearance) (Pt Warm) (Pt Warm) (Pt Warm) -Tenderness on Palpation (Essie-wound No No No Skin Appearance) -Ulcer Cleansing Soap and Water Soap and Water Soap and Water -Foul Odor after Cleansing No No -Anesthetic Used 5% Lidocaine 5% Lidocaine 5% Lidocaine Gel Gel Gel - Nurse 2 - General Ulcer CM Notes Start: 06/19/24 10:05 Freq: Status: Active Protocol: Activity Type Activity Date Activity User E-sign Co-sign Detail Recorded Client Recorded Date Recorded By Document 06/19/24 11:22 0000 06/19/24 11:25 Edit Result 06/19/24 11:22 (1) [id number] 06/30/24 08:13 Document 06/25/24 09:58 [facility] 06/25/24 10:12 Document 07/10/24 11:56 [id number] 07/10/24 12:02 (1) #1 SACRAL CLUSTER - Debridement, SubQ, ea addt'l 20sq cm => 1 or part thereof 06/19/24 06/25/24 07/10/24 11:22 09:58 11:56 Wound Center Nurse 2 #2 LT FOREARM -Time 10:06 11:57 -Correct Patient Yes Yes -Correct Side, Site, Position Yes Yes -Correct Procedure Yes -Procedure Performed Yes -Type of Procedure Debridement -Clinical Debridement Subcutaneous -Tissue Removed Subcutaneous -Post Debridement (cm) - Length 6.0 -Post Debridement (cm) - Width 3.5 -Post Debridement (cm) - Depth 0.1 -Total Square (Post) (cm) 21.00 -Area of Debridement (cm) - Length 6.0 -Area of Debridement (cm) - Width 3.5 -Total Square (Area) (cm) 21.00 -Tunneling No -Undermining/Tunneling No -Circular Undermining No -Wound/Ulcer Outcome Not Healed Healed- Epithelialized -Ulcer Cleansing Rinsed/ Irrigated with Saline -Foul Odor after Cleansing No -Bioengineered Tissue No -Bleeding Controlled with Pressure -Treatment Response Procedure Tolerated Well -Debridement - Subq, 1st 20sq cm No #1 SACRAL CLUSTER -Time 11:23 09:58 11:57 -Correct Patient Yes Yes Yes -Correct Side, Site, Position Yes Yes Yes -Correct Procedure Yes Yes -Procedure Performed Yes Yes -Type of Procedure Debridement Debridement -Clinical Debridement Subcutaneous Subcutaneous -Tissue Removed Subcutaneous Subcutaneous -Post Debridement (cm) - Length 5 5.0 -Post Debridement (cm) - Width 4.5 3.0 -Post Debridement (cm) - Depth 0.3 0.3 -Total Square (Post) (cm) 22.5 15.00 -Area of Debridement (cm) - Length 5 5.0 -Area of Debridement (cm) - Width 4.5 3.0 -Total Square (Area) (cm) 22.5 15.00 -Tunneling No No -Undermining/Tunneling No No -Circular Undermining No No -Wound/Ulcer Outcome Not Healed Not Healed Healed- Epithelialized -Ulcer Cleansing Rinsed/ Rinsed/ Irrigated with Irrigated with Saline Saline -Foul Odor after Cleansing No No -Bioengineered Tissue No No -Bleeding Controlled with Pressure Pressure -Treatment Response Procedure Procedure Tolerated Well Tolerated Well -Offloading No -Debridement - Subq, 1st 20sq cm Yes Yes -Debridement, SubQ, ea addt'l 20sq cm 1 1 or part thereof Pain Scale: 0-10 Numeric Is Patient Pain Free? Yes Yes Yes WC - Nurse 3 - General Ulcer D/C NN Start: 06/19/24 10:05 Freq: Status: Active Protocol: Activity Type Activity Date Activity User E-sign Co-sign Detail Recorded Client Recorded Date Recorded By Document 06/19/24 11:30 JF 0000 06/19/24 11:32 JF Document 06/25/24 11:03 RB wound 06/25/24 11:06 RB 06/19/24 06/25/24 11:30 11:03 Wound Care Center Nurse 3 #2 LT FOREARM -Primary Dressing Applied Aquacel Extra, NonAdherent Contact Layer -Primary Dressing Covered/Secured with Dry Gauze & Roll Gauze, Secured with Tape -Aquacel Extra 1 #1 SACRAL CLUSTER -Ulcer Cleansing Rinsed/ Irrigated with Saline -Foul Odor after Cleansing No -Primary Dressing Applied Mepilex Border, Mepilex Border, Promogran Promogran -Mepilex Border 1 1 -Promogran 1 1 Treatment Response Procedure Tolerated Well Pain Scale: 0-10 Numeric Is Patient Pain Free? Yes Yes WC - Visit Discharge Discharge Condition Stable Stable Ambulatory Status Walker, Wheelchair Wheelchair Transportation Private Auto Private Auto Accompanied by son and Medication Reconcilliation completed & Yes No provided to patient/care provider Clinical Summary of Care Provided Yes Yes Additional Wound Tissue Removed: Slough and devitalized tissue Assessment/Plan Assessment/Plan (1) Stage III pressure ulcer of sacral region: CODE(S): L89.153 - Pressure ulcer of sacral region, stage 3 (2) Penetrating wound of left forearm: CODE(S): S51.832A - Puncture wound without foreign body of left forearm, initial encounter QUALIFIERS: Encounter type: initial encounter Qualified Code(s): S51.832A - Puncture wound without foreign body of left forearm, initial encounter (3) HFrEF (heart failure with reduced ejection fraction): CODE(S): I50.20 - Unspecified systolic (congestive) heart failure (4) Debility: CODE(S): R53.81 - Other malaise PLAN: Plan Evaluation performed today in clinic and his ulcers are healed. At home wound-care instructions: Will have them use Calmoseptine and foam dressing for the next week to protect skin. Offloading importance stressed to patient and his family to avoid future ulcers. Keep dressing clean and dry. Off-loading: The patient was instructed to avoid pressure and friction on the affected areas. Reposition every 2 hours at minimum. Avoid prolonged standing and/or dangling of legs. When seated, feet should be elevated at chest level. Frequent ambulation is encouraged. Diet: Patient encouraged to increase protein intake while taking caution to avoid high carbohydrate and/or sugar intake. Labs/cultures/imaging: Follow-up: He will be discharged from treatment today. We will be happy to see him again in the future if needed. Note: [employer] speech recognition public relations counselor software was used to create portions of this document. Sound-alike and misspelled words, as well as other public relations counselor errors may be contained in the documentation.
--- NOTE | 2024-07-13 09:00 | WC ---
PHOTO 07/10/24 LEFT FOREARM
--- NOTE | 2024-07-13 09:00 | WC ---
PHOTO 07/09/24 SACRUM
--- NOTE | 2024-07-15 13:33 | WC ---
PHOTO 07/10/24 LEFT FOREARM
--- NOTE | 2024-07-15 13:34 | WC ---
PHOTO 07/10/24 [facility]CRUM
== END 2024-07-18 23:59 | disposition home or self-care (01) ==
LOC: WC 11:30
PROVIDERS: PCP Family Medicine; Referring Provider Family Medicine; Visit Provider Family Medicine
DX: E11.622 Type 2 diabetes mellitus with other skin ulcer (principal); L89.153 Pressure ulcer of sacral region, stage 3; I13.0 Hypertensive heart and chronic kidney disease with heart failure and stage 1 through stage 4 chronic kidney disease, or unspecified chronic kidney disease; I50.20 Unspecified systolic (congestive) heart failure; I48.91 Unspecified atrial fibrillation; E11.51 Type 2 diabetes mellitus with diabetic peripheral angiopathy without gangrene; E11.22 Type 2 diabetes mellitus with diabetic chronic kidney disease; Z79.4 Long term (current) use of insulin; N18.32 Chronic kidney disease, stage 3b; Z87.891 Personal history of nicotine dependence; I25.10 Atherosclerotic heart disease of native coronary artery without angina pectoris; Z79.84 Long term (current) use of oral hypoglycemic drugs; R53.81 Other malaise; D50.9 Iron deficiency anemia, unspecified; E78.2 Mixed hyperlipidemia; Z80.0 Family history of malignant neoplasm of digestive organs; S51.832A Puncture wound without foreign body of left forearm, initial encounter; Z95.0 Presence of cardiac pacemaker; Z82.3 Family history of stroke; E03.9 Hypothyroidism, unspecified; Z85.038 Personal history of other malignant neoplasm of large intestine
CPT/HCPCS: 11042; 11045; 87070; 87075; 87205; 99213; 99214; G0463

== ENCOUNTER 2024-07-11 19:34 | Inpatient (IN) | payer MEDICARE, SELFPAY ==
[2024-07-11 19:35] VITALS: BP 138/62; PULSE 51; RESP 16; TEMP 36.5; O2SAT 97
--- NOTE | 2024-07-11 19:55 | EX.ED.DYSGE1 ---
HPI History of Present Illness Chief Complaint: Complaint [facility] Medical History (Updated 07/11/24 @ 23:[address] Guerita Moralez, DO) Prostate CA Penetrating wound of left forearm History of echocardiogram History of atrial fibrillation Wears hearing aid Wears glasses Wears dentures Cancer Depression Anxiety Abrasion Insulin dependent diabetes mellitus Arthritis Walker as ambulation aid Prostate disease Indwelling urethral catheter present History of renal disease Low iron Anemia High cholesterol Easy bruising Back pain Dietary restriction Difficulty swallowing Esophageal varices History of ulceration Former smoker On home oxygen therapy Shortness of breath on exertion History of edema Hypertension History of rheumatic fever History of CHF (congestive heart failure) Cardiology follow-up encounter Presence of cardiac pacemaker Atrial fibrillation with slow ventricular response Peripheral vascular disease Lumbar stenosis Gout DDD (degenerative disc disease) Carotid artery stenosis Chronic diastolic (congestive) heart failure Non-rheumatic aortic stenosis Atherosclerosis of coronary artery of sun'aq heart without angina pectoris Secondary pulmonary arterial hypertension Essential (primary) hypertension Left bundle branch block Stool guaiac positive Iron deficiency anemia Personal history of colonic polyps History of malignant neoplasm of colon Chronic kidney disease, stage III (moderate) Thoracic aortic aneurysm without rupture Colon cancer, ascending Dyslipidemia Type II diabetes mellitus Home Medications ?Medication ?Instructions ?Recorded ?Last Taken ?Type pravastatin 40 mg tablet 40 mg PO QHS cholesterol 05/14/16 06/30/24 History cholecalciferol (vitamin D3) 25 1,000 unit PO DAILY vitamin 07/16/16 06/30/24 History mcg (1,000 unit) tablet cyanocobalamin (vitamin B-12) 1,000 mcg PO DAILY supplement 07/16/16 06/30/24 History 1,000 mcg tablet sitagliptin phosphate 50 mg tablet 50 mg PO DAILY diabetes 06/25/19 06/30/24 History docusate sodium 100 mg capsule 100 mg PO BID PRN sool softener 09/11/19 06/30/24 History (Colace) ferrous sulfate 325 mg (65 mg 325 mg PO BID iron supplement 09/11/19 06/30/24 History iron) tablet (Feosol) folic acid 400 mcg tablet 800 mcg PO DAILY vitamin 09/11/19 06/30/24 History insulin glargine 100 unit/mL (3 8 unit subcut QHS diabetes 09/11/19 06/30/24 History mL) subcutaneous pen blood sugar diagnostic (True 03/18/24 Unknown History Metrix Glucose Test Strip) gabapentin 400 mg capsule 400 mg PO QHS nerve pain 03/18/24 06/30/24 History latanoprost 0.005 % eye drops 1 drp ophthalmic (eye) QHS eye 03/18/24 06/30/24 History health pen needle, diabetic 31 gauge x 03/18/24 Unknown History 01/31 (Droplet Pen Needle) potassium chloride 20 mEq 20 meq PO DAILY supplement 03/18/24 06/30/24 History tablet,extended release(part/cryst) furosemide 40 mg tablet (Lasix) 40 mg PO BIDCM Edema #120 tabs 03/20/24 06/30/24 Rx hydralazine 50 mg tablet 50 mg PO 4X/DAY BP 04/02/24 06/30/24 History pantoprazole 40 mg tablet,delayed 40 mg PO DAILY 30 days #30 tabs 05/05/24 07/01/24 Rx release finasteride 5 mg tablet 5 mg PO DAILY 30 days #30 tabs 05/22/24 06/30/24 Rx magnesium chloride 64 mg 64 mg PO BID Supplement #60 tabs 05/22/24 06/30/24 Rx (magnesium chloride) tablet,delayed release (Mag 64) amlodipine 5 mg tablet 2.5 mg (1/2 x 5 mg) PO HS 30 days 05/27/24 06/30/24 Rx #15 tabs amiodarone 200 mg tablet 200 mg PO DAILY #90 tabs 06/15/24 07/01/24 Rx tamsulosin 0.4 mg capsule (Flomax) 0.8 mg PO DAILY 07/11/24 Unknown History torsemide 20 mg tablet 20 mg PO DAILY 07/11/24 Unknown History Allergy/AdvReac Type Severity Reaction Status Date / Time Milk Containing Products AdvReac NEEDS Verified 07/11/24 19:35 (Dairy) (Milk Containing FOLLOW-UP Products) quinapril (From Accupril) AdvReac Other Verified 07/11/24 19:35 Family History Mother Colon cancer Heart disease Hypertension CAD (coronary artery disease) Father Cancer prostate CVA (cerebral vascular accident) CAD (coronary artery disease) Brother CAD (coronary artery disease) CABG Brother CAD (coronary artery disease) CABG Surgical History (Updated 07/11/24 @ 19:59 by Rachel Garcia) S/P TURP (status post transurethral resection of prostate) History of esophagogastroduodenoscopy (EGD) History of left heart catheterization (07/2001) H/O colectomy S/P colonoscopy S/P cataract extraction Social History household members: spouse Smoking Status: Former smoker how long ago did patient quit smokin years ago alcohol intake: never substance use type: does not use EXAM Physical Exam Const Vital Signs: 07/11/24 19:35 Temperature 97.7 F L Temperature Source Temporal Pulse Rate 51 L Respiratory Rate 16 Blood Pressure 138/62 H Blood Pressure Mean 87 Pulse Ox 97 Oxygen Delivery Method Nasal Cannula Oxygen Flow Rate (L/min) 2 MDM MDM MDM Narrative Medical decision making narrative: HISTORY OF PRESENT ILLNESS: 89-year-old male presents with decreased urination, discolored urine and pain in the perineal region. States he had a surgery done 10 days ago. He further states he has had lower abdominal pain and decreased urination over the last several days. He denies fever, chills, vomiting, hematuria, constipation. Last bowel movement was today. REVIEW OF SYSTEMS: Pertinent positives: Decreased urination, lower abdominal pain Pertinent negatives: vomiting, fever PHYSICAL EXAM: Nursing triage notes reviewed, Vital signs reviewed Constitutional: please see mdm HENT: MMM Eyes: Pupils equal round and reactive to light, Extraocular muscles intact Neck: No stridor, no JVD, full neck ROM Lungs: Clear to auscultation, No wheezing or rales. No increased work of breathing, no conversational dyspnea, no accessory muscle use, no nasal flaring. No respiratory distress noted Heart: Regular rate and rhythm, No murmurs, No rubs and No gallops, 2+ distal pulses (radial, femoral, posterior tibial) in all extremities Abdomen: Soft, there is no tenderness, rigidity, rebound or guarding, no obvious peritoneal signs, no palpable pulsatile abdominal masses, no auscultated abdominal bruit : No CVAT, no obvious testicular tenderness, the perineum there is no crepitus or bullae or signs of Ramesh's gangrene, there is some TTP with palpation. Extremities: No edema Neuro: No focal neurological deficits, cranial nerves II through XII intact, 5/5 strength in all extremities. Intact sensation to light touch in all extremities, 2+ reflexes bilateral patella tendons. Normal gait. No ataxia. Skin: No rash or lesions noted MEDICAL DECISION MAKING: Chief Complaint: lower abdominal pain External records reviewed: Reviewed prior procedure note from 07/01/2024 in which he underwent a TURP by Dr. Villanueva for BPH with urinary retention Factors affecting care: History of BPH, type 2 diabetes, CHF, hypertension, dyslipidemia, Consults: Internal medicine, urology MDM Narrative: Patient was hemodynamically stable, afebrile and nontoxic-appearing. He was on 2 L O2 by nasal cannula, I considered the following differential diagnosis: Postop infection, urinary tension, UTI, intra-abdominal abscess, postop seroma, bowel obstruction, perforation I obtained a broad lab and imaging workup to further elucidate the etiology of the patient's complaints. I obtained a CT scan rule out intra-abdominal pathology such as obstruction perforation or abscess. I obtained a bladder scan to assess postvoid residual volume. I obtained a urinalysis to rule out UTI. ALL IMAGES (IF OBTAINED) HAVE BEEN PERSONALLY REVIEWED AND INTERPRETED BY MYSELF. CT scan of the abdomen pelvis shows evidence of a prosthetic abscess Lactate is wnl indicating no end-organ hypoperfusion and/or hypoxia. CBC without leukocytosis, noted severe anemia with a hemoglobin of 7, noted thrombocytopenia as well BMP with baseline CKD, no significant electrolyte abnormalities, no signs of metabolic acidosis or endorgan hypoperfusion LFTs show no evidence of hepatobiliary pathology. The synthesis of the patient's history, physical exam, labs images suggest likely postsurgical abscess in the prostate. Will give Zosyn. Did consult urology spoke with Dr. Villanueva who recommended admission under medicine. He stated he was out of town tonight will be back and by noon tomorrow. Discussed with the hospitalist Dr. Moralez who agreed to admit the patient. The patient and/or family, caregivers express understanding. The patient and/or family, caregivers agrees with the plan. Shared decision making: I will have a discussion with the patient and or visitors regarding risk/benefits of further testing or admission. They will be made aware of of the risk/benefits inherent in this decision they will be given the opportunity to voice understanding. Total critical care time today provided was at least 0 minutes. This excludes separately billable procedures. Critical care time (if documented) is secondary to the patient having high probability of clinically significant/life threatening deterioration in the patient's condition which required my urgent intervention. Impression: 1. Prostate abscess 2. Anemia 3. Thrombocytopenia 4. CKD Dispo: Admit to medicine This note was generated with [employer] dictation software. It may contain incorrect words, spelling, and punctuation that were not noted in review of the chart prior to signing. Lab Data Labs: Laboratory Results - last 24 hr 07/11/24 07/11/24 07/11/24 19:58 20:13 20:23 WBC 5.3 RBC 2.45 L Hgb 7.0 L Hct 24.0 L MCV 98.0 H MCH 28.6 MCHC 29.2 L RDW Std Deviation 72.1 H RDW Coeff of Rachelle 20.0 H Plt Count 105 L MPV 10.2 Immature Gran % (Auto) 0.800 Neut % (Auto) 65.2 Lymph % (Auto) 18.[address] [place] % (Auto) 12.4 H Eos % (Auto) 1.7 Baso % (Auto) 1.1 H Absolute Neuts (auto) 3.5 Absolute Lymphs (auto) 1.00 Nucleated RBC % 0 Differential Comment SEE COMMENT Platelet Estimate SLT DEC RBC Morphology N CHROM Hypochromasia RARE Anisocytosis RARE Macrocytosis RARE Sodium 137 Potassium 4.9 Chloride 100 Carbon Dioxide 32.0 Anion Gap 5 BUN 38 H Creatinine 2.10 H Estim Creat Clear Calc 26.95 Est GFR (MDRD) Af Amer 38 L Est GFR (MDRD) Non-Af 32 L BUN/Creatinine Ratio 18.1 Glucose 180 H Lactic Acid 1.3 Calcium 8.3 L Total Bilirubin 0.40 AST 25 ALT 17 Alkaline Phosphatase 58 Total Protein 7.3 Albumin 2.0 L Globulin 5.3 H Albumin/Globulin Ratio 0.4 L Discharge Plan Triage Chief Complaint: Complaint ED Provider: Carl Mariee Dx/Rx/DC Orders Primary Care Provider: Cory Mckeon
--- NOTE | 2024-07-11 19:58 | CT_ITS ---
INDICATION: lower abdominal pain s/p TURP EXAMINATION: CT Abdomen And Pelvis W/ Contrast Injection TECHNIQUE: Helically acquired images were obtained of the abdomen and pelvis after IV contrast. A radiation dose optimization technique was used for this scan. IV Contrast dosage and agent: IV 75mL [id number] Oral contrast: None. COMPARISON: None. FINDINGS: Visualized lung bases: Bibasilar patchy opacities. Small bilateral pleural effusions. The heart is markedly enlarged. Liver: Unremarkable Gallbladder : gallbladder wall thickening Spleen: Unremarkable Pancreas: Unremarkable Adrenal Glands: Unremarkable Kidneys: Bilateral renal cysts. Vasculature: Severe aortoiliac atherosclerotic disease. GI Tract: Post surgical changes of the ascending colon. Lymphadenopathy: None Peritoneum: Small volume complex free fluid in the pelvis. Bladder: Mild circumferential wall thickening with subtle surrounding inflammatory changes. Reproductive organs: Complex 2.8 x 2.2 cm fluid collection in the prostate gland. Bones/Soft tissues: There are diffuse degenerative changes of the spine. Multilevel spondylolisthesis of the lumbar spine. Age-indeterminate mild compression deformity of L1. CT/Abdomen/Pelvis W IV Cont ONLY IMPRESSION: Possible 3 cm prostatic abscess. Findings suspicious for cystitis. Correlate with urinalysis. Age-indeterminate mild compression deformity of L1. Multilevel spondylolisthesis of the lumbar spine. Marked cardiomegaly with interstitial edema and small bilateral pleural effusions. Small volume complex free fluid in the pelvis. Electronically Signed: Iron Noble MD at 22:06 EDT ,
[2024-07-11 20:33] LABS: Absolute Neutrophil Count 3.5 X10^3/uL (2.0-7.7); Basophil# 0.06 X10^3/uL; Basophil% 1.1 % (0-1); Eosinophil# 0.09 X10^3/uL; Eosinophils% 1.7 % (0-5); Lymphocyte % 18.8 % (19-41); Mean Corp Hgb Conc 29.2 g/dL (32-36); Mean Corpuscular Hgb 28.6 pg (27.0-32.0); Mean Platelet Vol. 10.2 fl (6.2-12.0); Monocyte# 0.66 X10^3/uL; Monocyte% 12.4 % (0-10); NRBC Flagged by Analyzer 0 % (0-5); Neutrophil # 3.48 X10^3/uL (2.7-7.7); Neutrophil % 65.2 % (47-70); POSITIVE MORPHOLOGY YES; Platelet Count 105 K/mm3 (150-450); RBC Distribution Width SD 72.1 fl (35.1-43.9); Red Blood Count 2.45 M/mm3 (4.6-6.2); White Blood Count 5.3 K/mm3 (4.4-11.0)
[2024-07-11 20:42] VITALS: BMI 26.3
[2024-07-11 20:55] LABS: ALB/GLOB Ratio 0.4 RATIO (0.9-2.4); AST(SGOT) 25 U/L (15-37); Alanine Aminotransfer ALT/SGPT 17 U/L (16-61); Alkaline Phosphatase 58 U/L (45-117); Anion Gap 5 (5-15); BUN 38 mg/dL (7-18); BUN/Creat Ratio 18.1 RATIO (10-20); Calcium,Total 8.3 mg/dL (8.5-10.1); Chloride 100 mmol/L (98-107); EST Glomerular Filtration Rate 32 mL/min (>60); Est Glom Filt Rate - Afr Amer 38 mL/min (>60); Estimated Creatinine Clearance 26.95 ml/min; Globulin 5.3 g/dL (2.2-4.2); Glucose 180 mg/dL (74-106); Potassium 4.9 mmol/L (3.5-5.1); Protein, Total 7.3 g/dL (6.4-8.2); Sodium Level 137 mmol/L (136-145)
[2024-07-11 21:06] LABS: Lactic Acid 1.3 mmol/L (0.4-1.9)
[2024-07-11 21:27] LABS: Differential Indicated SCAN CRITERIA MET
[2024-07-11 21:29] LABS: Anisocytosis RARE; Hypochromasia RARE; Macrocytosis RARE; Platelet Estimate SLT DEC (ADEQ); Red Cell Morphology N CHROM NORMAL (NORM C&C)
[2024-07-11 21:34] VITALS: BP 144/70; PULSE 52; RESP 16; O2SAT 97
[2024-07-11 22:11] LABS: Bacteria 0 SEEN /hpf (None Seen); Mucous, Urine 0 SEEN /hpf (<or=2+); Squamous Epithelial Cells - UA 0 SEEN /hpf (0-5)
[2024-07-11 22:15] LABS: Color, Urine Yellow (Yellow); Glucose, Dipstick Normal (Normal); Ketone-Dipstick Negative (Negative); Leukocyte Esterase-Dipstick 100 /ul (Negative); Nitrite-Dipstick Negative (Negative); Occult Blood-Urine 250 /ul (Negative); Protein-Dipstick 100 mg/dl (Negative); Urine Bilirubin Dipstick Negative (Negative); Urine Clarity Cloudy (Clear); Urine Urobilinogen Normal (Normal)
[2024-07-11 22:22] LABS: Red Blood Cells-Urine 50-100 SEEN /hpf (0-5); White Blood Cells 10-25 SEEN /hpf (0-5)
[2024-07-11 23:00] VITALS: BP 143/70; PULSE 50; RESP 16; TEMP 36.4; O2SAT 96
[2024-07-11 23:09] VITALS: BP 147/72; PULSE 51; RESP 16; TEMP 36.4; O2SAT 96
--- NOTE | 2024-07-11 23:39 | HP.PCM.HOS_ITS ---
HPI - General General Date of Admission: 07/11/24 Date of Service: 07/11/24 Chief Complaint: Difficulty urinating/perineal pain HPI Narrative JASON STANLEY, is a 89 M who presented to the emergency department at [facility] on 07/11/2024 with a chief complaint of decreased urine output, discolored urine and pain in the perineal region. The patient had a TURP done on 07/01/2024 due to BPH and urinary retention. He indicated on presentation that his symptoms have slowly started over the last several days. He also has had some lower abdominal pain. He denied any fevers, chills, nausea or vomiting, obvious hematuria or any constipation. His last bowel movement was on the day of presentation. He does have chronic lower extremity edema that has not worsened however his left lower extremity is red compared to previous and compared to his right lower extremity. He states he has had some wounds there. The patient is on 2 L nasal cannula chronically. He states his breathing has been stable. He does have quite a complicated past medical history. Vital signs on presentation showed a temperature of 97.7, heart rate 51, blood pressure 138/62, respiratory rate 16 oxygen saturations were 97% on 2 L. CBC on presentation shows a normal white count without a left shift. He is a stable thrombocytopenia. His hemoglobin was 7.0 which is down from his baseline of 8-9 and most recently it was 8.6 on 06/25/2024. Anemia is macrocytic in nature. His chemistry panel shows normal electrolytes and elevated BUN and serum creatinine at 38 and 2.1 respectively which are his baseline. Glucose was 180. Lactic acid was normal at 1.3. Liver functions were unremarkable. His UA showed some proteinuria and some occult blood with leuk esterase and white cells without bacteria. With his recent surgery a CT of his abdomen pelvis was performed and demonstrated a 3 cm prostatic abscess, findings consistent with cystitis, and age-indeterminate mild compression fracture of L1, multilevel spondylolisthesis of the lumbar spine and marked cardiomegaly with interstitial edema and small bilateral pleural effusions. He also appears to have chronic stable bilateral renal cysts and severe aortoiliac atherosclerotic disease. The case was discussed with Dr. Villanueva and he is out of town in [place] but will be back tomorrow and asked that we admit the patient for him. He was given Zosyn in the emergency department. [facility] Medical History Prostate CA Penetrating wound of left forearm History of echocardiogram History of atrial fibrillation Wears hearing aid Wears glasses Wears dentures Cancer Depression Anxiety Abrasion Insulin dependent diabetes mellitus Arthritis Walker as ambulation aid Prostate disease Indwelling urethral catheter present History of renal disease Low iron Anemia High cholesterol Easy bruising Back pain Dietary restriction Difficulty swallowing Esophageal varices History of ulceration Former smoker On home oxygen therapy Shortness of breath on exertion History of edema Hypertension History of rheumatic fever History of CHF (congestive heart failure) Cardiology follow-up encounter Presence of cardiac pacemaker Atrial fibrillation with slow ventricular response Peripheral vascular disease Lumbar stenosis Gout DDD (degenerative disc disease) Carotid artery stenosis Chronic diastolic (congestive) heart failure Non-rheumatic aortic stenosis Atherosclerosis of coronary artery of [place] heart without angina pectoris Secondary pulmonary arterial hypertension Essential (primary) hypertension Left bundle branch block Stool guaiac positive Iron deficiency anemia Personal history of colonic polyps History of malignant neoplasm of colon Chronic kidney disease, stage III (moderate) Thoracic aortic aneurysm without rupture Colon cancer, ascending Dyslipidemia Type II diabetes mellitus Home Medications ?Medication ?Instructions ?Recorded ?Last Taken ?Type pravastatin 40 mg tablet 40 mg PO QHS cholesterol 05/14/16 06/30/24 History cholecalciferol (vitamin D3) 25 1,000 unit PO DAILY vitamin 07/16/16 06/30/24 History mcg (1,000 unit) tablet cyanocobalamin (vitamin B-12) 1,000 mcg PO DAILY supplement 07/16/16 06/30/24 History 1,000 mcg tablet sitagliptin phosphate 50 mg tablet 50 mg PO DAILY diabetes 06/25/19 06/30/24 History docusate sodium 100 mg capsule 100 mg PO BID PRN sool softener 09/11/19 06/30/24 History (Colace) ferrous sulfate 325 mg (65 mg 325 mg PO BID iron supplement 09/11/19 06/30/24 History iron) tablet (Feosol) folic acid 400 mcg tablet 800 mcg PO DAILY vitamin 09/11/19 06/30/24 History insulin glargine 100 unit/mL (3 8 unit subcut QHS diabetes 09/11/19 06/30/24 History mL) subcutaneous pen blood sugar diagnostic (True 03/18/24 Unknown History Metrix Glucose Test Strip) gabapentin 400 mg capsule 400 mg PO QHS nerve pain 03/18/24 06/30/24 History latanoprost 0.005 % eye drops 1 drp ophthalmic (eye) QHS eye 03/18/24 06/30/24 History health pen needle, diabetic 31 gauge x 03/18/24 Unknown History 01/31 (Droplet Pen Needle) potassium chloride 20 mEq 20 meq PO DAILY supplement 03/18/24 06/30/24 History tablet,extended release(part/cryst) furosemide 40 mg tablet (Lasix) 40 mg PO BIDCM Edema #120 tabs 03/20/24 06/30/24 Rx hydralazine 50 mg tablet 50 mg PO 4X/DAY BP 04/02/24 06/30/24 History pantoprazole 40 mg tablet,delayed 40 mg PO DAILY 30 days #30 tabs 05/05/24 07/01/24 Rx release finasteride 5 mg tablet 5 mg PO DAILY 30 days #30 tabs 05/22/24 06/30/24 Rx magnesium chloride 64 mg 64 mg PO BID Supplement #60 tabs 05/22/24 06/30/24 Rx (magnesium chloride) tablet,delayed release (Mag 64) amlodipine 5 mg tablet 2.5 mg (1/2 x 5 mg) PO HS 30 days 05/27/24 06/30/24 Rx #15 tabs amiodarone 200 mg tablet 200 mg PO DAILY #90 tabs 06/15/24 07/01/24 Rx tamsulosin 0.4 mg capsule (Flomax) 0.8 mg PO DAILY 07/11/24 Unknown History torsemide 20 mg tablet 20 mg PO DAILY 07/11/24 Unknown History Allergy/AdvReac Type Severity Reaction Status Date / Time Milk Containing Products AdvReac NEEDS Verified 07/11/24 19:35 (Dairy) (Milk Containing FOLLOW-UP Products) quinapril (From Accupril) AdvReac Other Verified 07/11/24 19:35 Family History Mother Colon cancer Heart disease Hypertension CAD (coronary artery disease) Father Cancer prostate CVA (cerebral vascular accident) CAD (coronary artery disease) Brother CAD (coronary artery disease) CABG Brother CAD (coronary artery disease) CABG Surgical History S/P TURP (status post transurethral resection of prostate) History of esophagogastroduodenoscopy (EGD) History of left heart catheterization (07/2001) H/O colectomy S/P colonoscopy S/P cataract extraction Social History household members: spouse Smoking Status: Former smoker how long ago did patient quit smokin years ago alcohol intake: never substance use type: does not use ROS Constitutional Constitutional: Denies anorexia, change in weight, chills, fatigue, fever(s), malaise, night sweats, weakness or other Eyes Eyes: Denies blurry vision, change in eye color, change in vision, discharge from eye(s), double vision, erythema, eye pain, loss of vision or other ENT HEENT: Reports abnormal hearing and hearing loss; Denies dysphagia, ear pain, epistaxis, headache(s), nasal congestion, nasal discharge, post nasal drip, sinus pressure, sore throat or other Cardiovascular Cardiovascular: Reports edema; Denies chest pain, claudication, dyspnea on exertion, lightheadedness, orthopnea, palpitations, paroxysmal nocturnal dyspnea, rapid heart rate, syncope or other Respiratory/Chest Respiratory/Chest: Reports shortness of breath with exertion; Denies cough, dyspnea, excessive phlegm production, hemoptysis, productive cough, shortness of breath at rest, wheezing or other Gastrointestinal Gastrointestinal: Reports other Details: Suprapubic pain ; Denies coffee ground emesis, constipation, diarrhea, dyspepsia, hematemesis, hematochezia, loose stools, melena, nausea or vomiting Genitourinary Genitourinary: Reports difficulty urinating, dysuria and urinary incontinence; Denies burning urination, hematuria, nocturia, urinary frequency, urinary hesitancy, urinary urgency or other Musculoskeletal Musculoskeletal: Reports back pain and joint stiffness; Denies arthralgias, joint pain, joint swelling, myalgias, neck pain or other Neurologic Neurologic: Denies abnormal gait, abnormal speech, confusion, disequilibrium, dizziness, focal weakness, headache(s), numbness, paresthesias, seizure-like activity, seizures, syncope, tingling, tremor(s) or other Psychiatric Psychiatric: Denies anxiety, depression, homicidal ideation, suicidal ideation or other Endocrine Endocrinology: Denies change in body appearance, cold intolerance, excessive sweating, heat intolerance, polydipsia, polyuria or other Hematologic/Lymphatic Hematologic/Lymphatic: Denies anemia, easy bleeding, easy bruising, lymphadenopathy or other Allergic/Immunologic Allergic/Immunologic: Denies rhinitis, hives, eczemia, asthma or other Vital Signs Vital Signs Vital Signs: 07/11/24 19:35 07/11/24 21:34 07/11/24 23:09 Temperature 97.7 F L 97.6 F L Temperature Source Temporal Pulse Rate 51 L 52 L 51 L Respiratory Rate 16 16 16 Blood Pressure 138/62 H 144/70 H 147/72 H Blood Pressure Mean 87 94 97 Pulse Ox 97 97 96 Oxygen Delivery Method Nasal Cannula Oxygen Flow Rate (L/min) 2 Weight Weight: 90.6 kg Body Mass Index (BMI) 26.3 Physical Exam Const alert, oriented x3, no apparent distress and well nourished; Negative for average body habitus or healthy appearing Constitutional Narrative: Elderly, chronically appearing, white male, sitting up in bed, on 2 L nasal cannula which he states is his baseline, appears comfortable, does not look toxic General Appearance: cooperative HEENT normocephalic, head/scalp atraumatic and moist oral mucous membranes; Negative for hearing grossly normal bilaterally HEENT Narrative: Dentition is poor, Mallampati is 2, no thrush, moderate hearing loss Eyes PERRL and EOMs intact bilaterally; Negative for conjunctivae normal Eyes Narrative: Significant conjunctival pallor bilaterally, no scleral icterus Neck no lymphadenopathy and supple Neck Narrative: Trachea midline, no thyroid enlargement Resp normal respiratory effort, no retractions and no use of accessory muscles Resp Narrative: Crackles at bases bilaterally Auscultation: crackles; Negative for rhonchi or wheezes Cardio regular rate, regular rhythm, S1 normal heart sound, S2 normal heart sound, no rub, no gallops and no clicks; Negative for no murmurs Cardio Narrative: 4 out of 6 systolic murmur loudest at right upper sternal border GI normal to inspection, nondistended, normoactive bowel sounds and soft to palpation; Negative for non-tender GI Narrative: Mild tenderness in suprapubic region Extremity Extremity Narrative: Significant bilateral lower extremity edema that is pitting in nature to just above the knees, no cyanosis or clubbing Skin Skin Narrative: Erythema of the left lower extremity from just distal to the knee to just above the ankle predominantly anterior, several small wounds that appear to be healing and no signs of purulent drainage, area is tender and markedly different in appearance when compared to his right lower extremity which has signs of chronic venous stasis but no erythema. Neuro oriented x3, CN's II-XII intact bilaterally, moves all extremities and no focal motor deficits Neuro Narrative: Significant generalized weakness with no focal deficits Speech: speech normal Psych affect normal Psych Narrative: Very pleasant, interacts appropriately, eye contact is good Results Lab / Micro Data 07/11/24 19:58 07/11/24 20:23 Labs: Laboratory Results - last 24 hr 07/11/24 19:58: WBC 5.3, RBC 2.45 L, Hgb 7.0 L, Hct 24.0 L, MCV 98.0 H, MCH 28.6, MCHC 29.2 L, RDW Std Deviation 72.1 H, RDW Coeff of Rachelle 20.0 H, Plt Count 105 L, MPV 10.2, Immature Gran % (Auto) 0.800, Neut % (Auto) 65.2, Lymph % (Auto) 18.8 L, [place] % (Auto) 12.4 H, Eos % (Auto) 1.7, Baso % (Auto) 1.1 H, Absolute Neuts (auto) 3.5, Absolute Lymphs (auto) 1.00, Nucleated RBC % 0, Differential Comment SEE COMMENT, Platelet Estimate SLT DEC, RBC Morphology N CHROM, Hypochromasia RARE, Anisocytosis RARE, Macrocytosis RARE 07/11/24 20:13: Lactic Acid 1.3 07/11/24 20:23: Sodium 137, Potassium 4.9, Chloride 100, Carbon Dioxide 32.0, Anion Gap 5, BUN 38 H, Creatinine 2.10 H, Estim Creat Clear Calc 26.95, Est GFR (MDRD) Af Amer 38 L, Est GFR (MDRD) Non-Af 32 L, BUN/Creatinine Ratio 18.1, G lucose 180 H, Calcium 8.3 L, Total Bilirubin 0.40, AST 25, ALT 17, Alkaline Phosphatase 58, Total Protein 7.3, Albumin 2.0 L, Globulin 5.3 H, A lbumin/Globulin Ratio 0.4 L 07/11/24 22:05: Urine Color Yellow, Urine Clarity Cloudy, Urine pH 7.0, Ur Specific [place] 1.010, Urine Protein 100 H, Urine Glucose (UA) Normal, Urine Ketones Negative, Urine Occult Blood 250 H, Urine Nitrite Negative, Urine Bilirubin Negative, Urine Urobilinogen Normal, Ur Leukocyte Esterase 100 H, Urine RBC 50-100 SEEN, Urine WBC 10-25 SEEN, Ur Squamous Epith Cells 0 SEEN, Urine Bacteria 0 SEEN, Urine Mucus 0 SEEN Imaging Radiology Impression Abdomen/Pelvis CT 07/11/24 19:58 IMPRESSION: Possible 3 cm prostatic abscess. Findings suspicious for cystitis. Correlate with urinalysis. Age-indeterminate mild compression deformity of L1. Multilevel spondylolisthesis of the lumbar spine. Marked cardiomegaly with interstitial edema and small bilateral pleural effusions. Small volume complex free fluid in the pelvis. Electronically Signed: Iron Noble MD at 22:06 EDT , Assessment & Plan Assessment/Plan (1) Prostate abscess: (2) Acute on chronic anemia: (3) Left leg cellulitis: PLAN: Plan Prostatic abscess status post TURP -Surgery on 07/01/2024 -Zosyn -Check urine cultures -Consult urology -Dr. Villanueva said he would be back in town and see the patient probably by noon tomorrow Left lower extremity cellulitis -Zosyn as above and will add vancomycin -Check MRSA PCR and if negative may be able to consider discontinuation of vancomycin -Wound care consultation -Elevate extremities Acute on chronic anemia -Baseline appears to run predominantly in the mid eights but definitely between 8 and 9 -7.0 on presentation -Check iron studies -Check ferritin -Check reticulocyte count -Check stool Hemoccult--> patient did have a positive Hemoccult on 05/10/[address] Pearce previously for anemia -If hemoglobin drops further or guaiac is positive low threshold to reconsult Dr. Pearce with history as noted below -Patient is not on any antiplatelet therapy or anticoagulation History of upper GI bleed secondary to peptic ulcer disease/esophageal varices -Patient required EGD 04/19/2024 -EGD at that time showed grade 1 varices in the upper third of the esophagus, and a cratered gastric ulcer with no acute bleeding but evidence of previous bleeding in the stomach that was treated with heater probe -Repeat EGD was done on 05/13/2024 due to recurrent anemia and at that time the gastric ulcer was oozing and again treated with heater probe and a second ulcer was found with no stigmata of bleeding. -Continue oral Protonix -Monitor hemoglobin BPH with obstruction -Continue home Flomax -Status post TURP 07/01/2024 History of sacral pressure ulcers -Currently resolved -Will consult wound care to assist with skin management and lower extremity wounds Nonischemic cardiomyopathy -Last echo was on 03/18/2020 for which time he was found to have an EF of 25% -Continue home goal-directed therapy with losartan and Lasix -Furosemide is also listed as a medication for him however I doubt he is on to loop diuretics -Patient does have pacer defibrillator -Ongoing outpatient follow-up with cardiology Essential hypertension/hyperlipidemia -Continue home amlodipine -Continue home hydralazine -Continue home diuretic -Continue on pravastatin Permanent atrial fibrillation -[id number] is 3 -Continue home amiodarone -Patient has pacer defibrillator -No anticoagulation due to fall risk and GI bleeds -Would recommend ongoing avoidance of anticoagulation Secondary pulmonary artery hypertension -60 mmHg on his last echocardiogram -Continue diuretic therapy -WHO group 2 due to heart failure Glaucoma -Continue home eyedrops DM-2 -Continue home basal insulin -SSI -Hold home oral agents if confirmed -Accu-Cheks as ordered Neuropathy -Continue home gabapentin Peripheral vascular disease/carotid artery stenosis FEN patient is not amenable due to multiple comorbidities to any surgical intervention -No anticoagulation or antiplatelet therapy due to bleeding -Continue risk factor management as able CKD stage IIIb -Serum creatinine is stable -Continue to monitor -Patient will continue ongoing home diuretics History of colon cancer -Remote -Status post colectomy DVT prophylaxis -Subcu heparin twice daily for now -If hemoglobin drops may need to discontinue heparin and transition to SCDs -Repeat CBC in a.m. CODE STATUS -DNR CCA with no intubation per discussion at the time of admission Charges/Coding Visit Charges Inpatient E&M: 35383 Init Hosp L3
[2024-07-11] MEDS: Piperacil/Tazobactam 3.375 GM in 0.9% Normal Saline (50mL MB+) 50 ML IV (23:40)
[2024-07-12] VITALS (16 sets, daily range): BP systolic 130–156; BP diastolic 60–79; PULSE 50–51; RESP 16–22; TEMP 36.2–37.1; O2SAT 95–99; BMI 25.8
[2024-07-12 01:18] LABS: Platelet Count 106 K/mm3 (150-450); RET-HE 28.4 pg (30-35); Reticulocyte Count 3.19 % (0.5-1.5)
[2024-07-12] MEDS: Vancomycin HCl 1,250 MG in 0.9% Normal Saline (250mL Bag) 250 ML 167 MG IV (01:19)
[2024-07-12] MEDS: Acetaminophen 325 MG Tablet 650 MG PO (01:19)
[2024-07-12 01:37] LABS: Ferritin 130 ng/mL (26-388); Iron 24 ug/dL (65-175); Iron Binding Capacity,Total 280 ug/dL (250-450); PERCENT IRON SATURATION 8.6 % (15.0-55.0)
--- NOTE | 2024-07-12 03:35 | PCM.RX.CS ---
Consult Antibiotic Management Pharmacy has been consulted to manage selected antibiotic: Vancomycin Type of Intervention Type of Consult: Follow-up Labs Labs: Sodium 137 mmol/L (136-145) 07/11/24 20:23 Potassium 4.9 mmol/L (3.5-5.1) 07/11/24 20:23 Chloride 100 mmol/L (98-107) 07/11/24 20:23 Carbon Dioxide 32.0 mmol/L (21.0-32.0) 07/11/24 20:23 Anion Gap 5 (5-15) 07/11/24 20:23 BUN 38 mg/dL (7-18) H 07/11/24 20:23 Creatinine 2.10 mg/dL (0.70-1.30) H 07/11/24 20:23 Est GFR (MDRD) Af Amer 38 mL/min (>60) L 07/11/24 20:23 Est GFR (MDRD) Non-Af 32 mL/min (>60) L 07/11/24 20:23 BUN/Creatinine Ratio 18.1 RATIO (10-20) 07/11/24 20:23 Glucose 180 mg/dL (74-106) H 07/11/24 20:23 Dosing Weight Weight used for dosin.9 kg Estimated Creatinine Clearance Estimated Creatinine Clearance: 26.95 Goal Trough Goal Trough: 15-20 mcg/mL Pharmacy Plan for Drug Dosing Pharmacy Plan for Drug Dosing: Pharmacy Service will continue to monitor and adjust dosing as required. 1250 INITIAL DOSE, 1000MG Q24H TROUGH PRIOR TO 3RD DOSE Follow-Up Labs Follow-Up Labs: Trough: Vancomycin Date/Time Labs Ordered Labs to be done on [date and time ordered]: 07/14 @ 0100
[2024-07-12 06:24] LABS: Absolute Lymphocyte Count 1.27 X10^3/uL (0.83-4.51); Absolute Neutrophil Count 2.5 X10^3/uL (2.0-7.7); Basophil# 0.06 X10^3/uL; Basophil% 1.3 % (0-1); Eosinophil# 0.14 X10^3/uL; Hematocrit 24.6 % (40-54); Hemoglobin 7.1 g/dL (13.0-16.5); Lymphocyte # 1.27 X10^3/ul (0.83-4.51); Lymphocyte % 27.5 % (19-41); Mean Corp Hgb Conc 28.9 g/dL (32-36); Mean Corpuscular Volume 96.9 fL (80-94); Mean Platelet Vol. 10.6 fl (6.2-12.0); Monocyte# 0.62 X10^3/uL; Monocyte% 13.4 % (0-10); NRBC Flagged by Analyzer 0.4 % (0-5); Neutrophil % 54.4 % (47-70); POSITIVE MORPHOLOGY YES; Platelet Count 100 K/mm3 (150-450); RBC Distribution Width CV 19.8 % (11.6-14.6); RBC Distribution Width SD 70.7 fl (35.1-43.9); Red Blood Count 2.54 M/mm3 (4.6-6.2); White Blood Count 4.6 K/mm3 (4.4-11.0)
[2024-07-12 06:29] LABS: Differential Indicated SCAN CRITERIA MET
[2024-07-12 07:05] LABS: ALB/GLOB Ratio 0.4 RATIO (0.9-2.4); AST(SGOT) 28 U/L (15-37); Alanine Aminotransfer ALT/SGPT 17 U/L (16-61); Albumin, Serum 1.9 g/dL (3.2-5.0); Alkaline Phosphatase 53 U/L (45-117); Anion Gap 5 (5-15); BUN 37 mg/dL (7-18); BUN/Creat Ratio 19.4 RATIO (10-20); Calcium,Total 8.4 mg/dL (8.5-10.1); Chloride 101 mmol/L (98-107); Creatinine, Serum 1.91 mg/dL (0.70-1.30); EST Glomerular Filtration Rate 35 mL/min (>60); Est Glom Filt Rate - Afr Amer 43 mL/min (>60); Estimated Creatinine Clearance 29.63 ml/min; Globulin 5.2 g/dL (2.2-4.2); Glucose 117 mg/dL (74-106); Magnesium 2.1 mg/dL (1.6-2.6); Phosphorus 3.5 mg/dL (2.5-4.9); Potassium 4.3 mmol/L (3.5-5.1); Protein, Total 7.1 g/dL (6.4-8.2); Sodium Level 136 mmol/L (136-145)
[2024-07-12 07:16] LABS: Bedside Glucose 117 mg/dL (74-106)
[2024-07-12 07:19] LABS: Anisocytosis 1+; Differential Comment SCANNED; Stomatocyte 1+
[2024-07-12 07:21] LABS: Microcytosis 1+
[2024-07-12] MEDS: Ferrous Sulfate 325 MG Tablet PO ×2 (08:40→17:09)
[2024-07-12] MEDS: hydrALAZINE 50 MG Tablet PO ×3 (08:41→22:55)
[2024-07-12] MEDS: Tamsulosin HCl 0.4 MG Capsule 0.8 MG PO (08:41)
[2024-07-12] MEDS: Magnesium Chloride 64 MG Delay Rel.Tablet PO ×2 (08:41→22:55)
[2024-07-12] MEDS: Pantoprazole Sodium 40 MG Tablet PO (08:42)
[2024-07-12] MEDS: Cholecalciferol (VIT D3) 25 MCG TABLET (1,000 UNITS) PO (08:42)
[2024-07-12] MEDS: Furosemide 40 MG Tablet PO ×2 (08:42→17:09)
[2024-07-12 09:34] LABS: M R Staph aureus DNA By PCR Negative (Negative); Probe Check PASS; Specimen Processing Control PASS
--- NOTE | 2024-07-12 10:57 | CON.PCM.UR_ITS ---
Assessment & Plan Assessment/Plan (1) Left leg cellulitis: (2) Acute on chronic anemia: (3) Prostate abscess: PLAN: Unclear on my review of the CAT scan the patient really has a prostatic abscess we could do an ultrasound of his prostate take a look better look at the prostate transrectal. Continue with IV antibiotics. Await the results of the urine culture. Once urine cultures come back then we can tailor his antibiotics and send him home with a appropriate course of oral antibiotics I would wait to his cultures come back to decide what oral antibiotics and put him on. (4) Stage III pressure ulcer of sacral region: (5) HFrEF (heart failure with reduced ejection fraction): (6) Chronic kidney disease, stage 3b: (7) BPH (benign prostatic hyperplasia): (8) Essential (primary) hypertension: (9) Type 2 diabetes mellitus with hyperglycemia: (10) Hyperlipidemia: QUALIFIERS: Hyperlipidemia type: mixed hyperlipidemia Qualified Code(s): E78.2 - Mixed hyperlipidemia (11) Debility: (12) Atrial fibrillation: QUALIFIERS: Atrial fibrillation type: permanent Qualified Code(s): I48.21 - Permanent atrial fibrillation (13) Penetrating wound of left forearm: QUALIFIERS: Encounter type: initial encounter Qualified Code(s): S51.832A - Puncture wound without foreign body of left forearm, initial encounter (14) Atrial fibrillation with slow ventricular response: HPI Consult Data Date of Consult: 07/12/24 HPI Narrative Reason for Consultation: Follow-up after transurethral resection of the prostate HPI Narrative: JASON STANLEY, is a 89 M who presents back to the hospital, he has a history that he was in rehabilitation unit after hospitalization has multiple medical problems fairly high risk for surgery but family agreed to have him proceed with a transurethral resection of the prostate to help restore normal voiding. Prior to surgery he was in retention of urine with a chronic catheter and has failed multiple voiding trials and was not able to urinate and for improvement in quality of life he wanted to have surgery. So earlier this month he underwent a transurethral resection of the prostate and stayed in the hospital postop as usual like a day and a half and then was discharged home catheter was removed and sent then he has been able to urinate okay. Bladder control is not 100% but he is able to urinate without a catheter. He went to a family reunion and he states that he started having some burning with urination and some blood in the urine so he presented back to the emergency room. White blood count was normal. CT scan was done and on read there is a question of a prostate abscess but on my review of the CAT scan I cannot identify an abscess he has an obvious TUR defect within the prostate channel the rectum is below it is a night fat plane between the rectum and the prostate I do not see any evidence of an abscess in he prostate on the ct scan? Maybe a transurectal u/s may be useful- either way I don't have plans for any surgical intervention. This morning he states he is feeling better having less burning with urination. More likely just has a urinary tract infection post TURP. Urine has been sent off for culture this is pending, he is on broad-spectrum antibiotics. He states he is feeling better this morning. From urological standpoint I do not have any plans for any intervention intervention surgery or more procedures I think we can see what the cultures grow out and send him home accordingly once he is on appropriate antibiotics for his UTI. Explained to the patient that he probably has a urinary tract infection that on my review of the CAT scan I do not see an abscess he does have an elevated white blood count he is not exquisitely tender on digital rectal exam. So continue with gentle hydration continue with IV antibiotics await urine culture results and then we can tailor his cultures according to the results and send him home appropriate antibiotics once we get the cultures back. Call with questions. [facility] Medical History Prostate CA Penetrating wound of left forearm History of echocardiogram History of atrial fibrillation Wears hearing aid Wears glasses Wears dentures Cancer Depression Anxiety Abrasion Insulin dependent diabetes mellitus Arthritis Walker as ambulation aid Prostate disease Indwelling urethral catheter present History of renal disease Low iron Anemia High cholesterol Easy bruising Back pain Dietary restriction Difficulty swallowing Esophageal varices History of ulceration Former smoker On home oxygen therapy Shortness of breath on exertion History of edema Hypertension History of rheumatic fever History of CHF (congestive heart failure) Cardiology follow-up encounter Presence of cardiac pacemaker Atrial fibrillation with slow ventricular response Peripheral vascular disease Lumbar stenosis Gout DDD (degenerative disc disease) Carotid artery stenosis Chronic diastolic (congestive) heart failure Non-rheumatic aortic stenosis Atherosclerosis of coronary artery of [place] heart without angina pectoris Secondary pulmonary arterial hypertension Essential (primary) hypertension Left bundle branch block Stool guaiac positive Iron deficiency anemia Personal history of colonic polyps History of malignant neoplasm of colon Chronic kidney disease, stage III (moderate) Thoracic aortic aneurysm without rupture Colon cancer, ascending Dyslipidemia Type II diabetes mellitus Home Medications ?Medication ?Instructions ?Recorded ?Last Taken ?Type pravastatin 40 mg tablet 40 mg PO QHS cholesterol 05/14/16 06/30/24 History cholecalciferol (vitamin D3) 25 1,000 unit PO DAILY vitamin 07/16/16 06/30/24 History mcg (1,000 unit) tablet cyanocobalamin (vitamin B-12) 1,000 mcg PO DAILY supplement 07/16/16 06/30/24 History 1,000 mcg tablet sitagliptin phosphate 50 mg tablet 50 mg PO DAILY diabetes 06/25/19 06/30/24 History docusate sodium 100 mg capsule 100 mg PO BID PRN sool softener 09/11/19 06/30/24 History (Colace) ferrous sulfate 325 mg (65 mg 325 mg PO BID iron supplement 09/11/19 06/30/24 History iron) tablet (Feosol) folic acid 400 mcg tablet 800 mcg PO DAILY vitamin 09/11/19 06/30/24 History insulin glargine 100 unit/mL (3 8 unit subcut QHS diabetes 09/11/19 06/30/24 History mL) subcutaneous pen blood sugar diagnostic (True 03/18/24 Unknown History Metrix Glucose Test Strip) gabapentin 400 mg capsule 400 mg PO QHS nerve pain 03/18/24 06/30/24 History latanoprost 0.005 % eye drops 1 drp ophthalmic (eye) QHS eye 03/18/24 06/30/24 History health pen needle, diabetic 31 gauge x 03/18/24 Unknown History 01/31 (Droplet Pen Needle) potassium chloride 20 mEq 20 meq PO DAILY supplement 03/18/24 06/30/24 History tablet,extended release(part/cryst) furosemide 40 mg tablet (Lasix) 40 mg PO BIDCM Edema #120 tabs 03/20/24 06/30/24 Rx hydralazine 50 mg tablet 50 mg PO 4X/DAY BP 04/02/24 06/30/24 History pantoprazole 40 mg tablet,delayed 40 mg PO DAILY 30 days #30 tabs 05/05/24 07/01/24 Rx release finasteride 5 mg tablet 5 mg PO DAILY 30 days #30 tabs 05/22/24 06/30/24 Rx magnesium chloride 64 mg 64 mg PO BID Supplement #60 tabs 05/22/24 06/30/24 Rx (magnesium chloride) tablet,delayed release (Mag 64) amlodipine 5 mg tablet 2.5 mg (1/2 x 5 mg) PO HS 30 days 05/27/24 06/30/24 Rx #15 tabs amiodarone 200 mg tablet 200 mg PO DAILY #90 tabs 06/15/24 07/01/24 Rx tamsulosin 0.4 mg capsule (Flomax) 0.8 mg PO DAILY 07/11/24 Unknown History torsemide 20 mg tablet 20 mg PO DAILY 07/11/24 Unknown History Allergy/AdvReac Type Severity Reaction Status Date / Time Milk Containing Products AdvReac NEEDS Verified 07/11/24 19:35 (Dairy) (Milk Containing FOLLOW-UP Products) quinapril (From Accupril) AdvReac Other Verified 07/11/24 19:35 Family History Mother Colon cancer Heart disease Hypertension CAD (coronary artery disease) Father Cancer prostate CVA (cerebral vascular accident) CAD (coronary artery disease) Brother CAD (coronary artery disease) CABG Brother CAD (coronary artery disease) CABG Surgical History S/P TURP (status post transurethral resection of prostate) History of esophagogastroduodenoscopy (EGD) History of left heart catheterization (07/2001) H/O colectomy S/P colonoscopy S/P cataract extraction Social History household members: spouse Smoking Status: Former smoker how long ago did patient quit smokin years ago alcohol intake: never substance use type: does not use Medical Records Data Attestation: I reviewed the patient's medical records Lab / Micro Data Attestation: I reviewed the patient's lab results. 07/12/24 05:49 07/12/24 05:49 Labs: Laboratory Results - last 24 hr 07/11/24 19:58: WBC 5.3, RBC 2.45 L, Hgb 7.0 L, Hct 24.0 L, MCV 98.0 H, MCH 28.6, MCHC 29.2 L, RDW Std Deviation 72.1 H, RDW Coeff of Rachelle 20.0 H, Plt Count 105 L, MPV 10.2, Immature Gran % (Auto) 0.800, Neut % (Auto) 65.2, Lymph % (Auto) 18.8 L, [place] % (Auto) 12.4 H, Eos % (Auto) 1.7, Baso % (Auto) 1.1 H, Absolute Neuts (auto) 3.5, Absolute Lymphs (auto) 1.00, Nucleated RBC % 0, Differential Comment SEE COMMENT, Platelet Estimate SLT DEC, RBC Morphology N CHROM, Hypochromasia RARE, Anisocytosis RARE, Macrocytosis RARE 07/11/24 20:13: Lactic Acid 1.3 07/11/24 20:23: Sodium 137, Potassium 4.9, Chloride 100, Carbon Dioxide 32.0, Anion Gap 5, BUN 38 H, Creatinine 2.10 H, Estim Creat Clear Calc 26.95, Est GFR (MDRD) Af Amer 38 L, Est GFR (MDRD) Non-Af 32 L, BUN/Creatinine Ratio 18.1, G lucose 180 H, Calcium 8.3 L, Total Bilirubin 0.40, AST 25, ALT 17, Alkaline Phosphatase 58, Total Protein 7.3, Albumin 2.0 L, Globulin 5.3 H, A lbumin/Globulin Ratio 0.4 L 07/11/24 22:05: Urine Color Yellow, Urine Clarity Cloudy, Urine pH 7.0, Ur Specific [place] 1.010, Urine Protein 100 H, Urine Glucose (UA) Normal, Urine Ketones Negative, Urine Occult Blood 250 H, Urine Nitrite Negative, Urine Bilirubin Negative, Urine Urobilinogen Normal, Ur Leukocyte Esterase 100 H, Urine RBC 50-100 SEEN, Urine WBC 10-25 SEEN, Ur Squamous Epith Cells 0 SEEN, Urine Bacteria 0 SEEN, Urine Mucus 0 SEEN 07/12/24 01:10: Retic Count 3.19 H, Immature Retic Fraction 30.40 H, Retic Hgb Equivalent 28.4 L, Iron 24 L, TIBC 280, Iron Saturation 8.6 L, Ferritin 130 07/12/24 05:26: MRSA (PCR) Negative 07/12/24 05:39: POC Glucose 117 H 07/12/24 05:49: WBC 4.6, RBC 2.54 L, Hgb 7.1 L, Hct 24.6 L, MCV 96.9 H, MCH 28.0, MCHC 28.9 L, RDW Std Deviation 70.7 H, RDW Coeff of Rachelle 19.8 H, Plt Count 100 L, MPV 10.6, Immature Gran % (Auto) 0.400, Neut % (Auto) 54.4, Lymph % (Auto) 27.5, [place] % (Auto) 13.4 H, Eos % (Auto) 3.0, Baso % (Auto) 1.3 H, Absolute Neuts (auto) 2.5, Absolute Lymphs (auto) 1.27, Nucleated RBC % 0.4, Differential Comment SCANNED, Anisocytosis 1+, Microcytosis 1+, Stomatocytes 1+, Sodium 136, Potassium 4.3, Chloride 101, Carbon Dioxide 30.0, Anion Gap 5, BUN 37 H, Creatinine 1.91 H, Estim Creat Clear Calc 29.63, Est GFR (MDRD) Af Amer 43 L, Est GFR (MDRD) Non-Af 35 L, BUN/Creatinine Ratio 19.4, Glucose 117 H, Calcium 8.4 L, Phosphorus 3.5, Magnesium 2.1, Total Bilirubin 0.50, AST 28, ALT 17, Alkaline Phosphatase 53, Total Protein 7.1, Albumin 1.9 L, Globulin 5.2 H, A lbumin/Globulin Ratio 0.4 L Imaging Radiology Impression Abdomen/Pelvis CT 07/11/24 19:58 IMPRESSION: Possible 3 cm prostatic abscess. Findings suspicious for cystitis. Correlate with urinalysis. Age-indeterminate mild compression deformity of L1. Multilevel spondylolisthesis of the lumbar spine. Marked cardiomegaly with interstitial edema and small bilateral pleural effusions. Small volume complex free fluid in the pelvis. Electronically Signed: Iron Noble MD at 22:06 EDT ,
[2024-07-12 12:28] LABS: Bedside Glucose 158 mg/dL (74-106)
[2024-07-12] MEDS: Insulin Lispro 100 UNIT/ML INSULN.PEN SC ×2 (12:39→17:07)
--- NOTE | 2024-07-12 13:38 | PN_ITS ---
Subjective Subjective Patient seen and examined. He had no active complaints and said he felt a bit better. He was admitted with pain in the perineal region and imaging done showed prostatic abscess. He did have a TURP done recently. Review of systems otherwise negative. Objective Data Objective Data Vital Signs: Vital Signs Temp Pulse Resp BP Pulse Ox O2 Del Method O2 Flow Rate 97.6 F L 50 L 18 144/63 H 98 Nasal Cannula 2 07/12/24 08:38 07/12/24 08:41 07/12/24 08:38 07/12/24 08:38 07/12/24 08:38 07/12/24 08:38 07/12/24 08:38 Oxygen Flow Rate (L/min) 2 Oxygen Delivery Method Nasal Cannula Weight: 196 lb Body Mass Index (BMI) 25.8 Intake & Output: Intake and Output for Last 24 Hours 07/10/24 07/11/24 07/12/24 23:59 23:59 23:59 Intake Total 1365 / 1365 Output Total 1200 / 1200 Balance 165 / 165 Lab / Micro Data 07/12/24 05:49 07/12/24 05:49 Labs: Laboratory Results - last 24 hr 07/11/24 19:58: WBC 5.3, RBC 2.45 L, Hgb 7.0 L, Hct 24.0 L, MCV 98.0 H, MCH 28.6, MCHC 29.2 L, RDW Std Deviation 72.1 H, RDW Coeff of Rachelle 20.0 H, Plt Count 105 L, MPV 10.2, Immature Gran % (Auto) 0.800, Neut % (Auto) 65.2, Lymph % (Auto) 18.8 L, [place] % (Auto) 12.4 H, Eos % (Auto) 1.7, Baso % (Auto) 1.1 H, Absolute Neuts (auto) 3.5, Absolute Lymphs (auto) 1.00, Nucleated RBC % 0, Differential Comment SEE COMMENT, Platelet Estimate SLT DEC, RBC Morphology N CHROM, Hypochromasia RARE, Anisocytosis RARE, Macrocytosis RARE 07/11/24 20:13: Lactic Acid 1.3 07/11/24 20:23: Sodium 137, Potassium 4.9, Chloride 100, Carbon Dioxide 32.0, Anion Gap 5, BUN 38 H, Creatinine 2.10 H, Estim Creat Clear Calc 26.95, Est GFR (MDRD) Af Amer 38 L, Est GFR (MDRD) Non-Af 32 L, BUN/Creatinine Ratio 18.1, G lucose 180 H, Calcium 8.3 L, Total Bilirubin 0.40, AST 25, ALT 17, Alkaline Phosphatase 58, Total Protein 7.3, Albumin 2.0 L, Globulin 5.3 H, A lbumin/Globulin Ratio 0.4 L 07/11/24 22:05: Urine Color Yellow, Urine Clarity Cloudy, Urine pH 7.0, Ur Specific [place] 1.010, Urine Protein 100 H, Urine Glucose (UA) Normal, Urine Ketones Negative, Urine Occult Blood 250 H, Urine Nitrite Negative, Urine Bilirubin Negative, Urine Urobilinogen Normal, Ur Leukocyte Esterase 100 H, Urine RBC 50-100 SEEN, Urine WBC 10-25 SEEN, Ur Squamous Epith Cells 0 SEEN, Urine Bacteria 0 SEEN, Urine Mucus 0 SEEN 07/12/24 01:10: Retic Count 3.19 H, Immature Retic Fraction 30.40 H, Retic Hgb Equivalent 28.4 L, Iron 24 L, TIBC 280, Iron Saturation 8.6 L, Ferritin 130 07/12/24 05:26: MRSA (PCR) Negative 07/12/24 05:39: POC Glucose 117 H 07/12/24 05:49: WBC 4.6, RBC 2.54 L, Hgb 7.1 L, Hct 24.6 L, MCV 96.9 H, MCH 28.0, MCHC 28.9 L, RDW Std Deviation 70.7 H, RDW Coeff of Rachelle 19.8 H, Plt Count 100 L, MPV 10.6, Immature Gran % (Auto) 0.400, Neut % (Auto) 54.4, Lymph % (Auto) 27.5, [place] % (Auto) 13.4 H, Eos % (Auto) 3.0, Baso % (Auto) 1.3 H, Absolute Neuts (auto) 2.5, Absolute Lymphs (auto) 1.27, Nucleated RBC % 0.4, Differential Comment SCANNED, Anisocytosis 1+, Microcytosis 1+, Stomatocytes 1+, Sodium 136, Potassium 4.3, Chloride 101, Carbon Dioxide 30.0, Anion Gap 5, BUN 37 H, Creatinine 1.91 H, Estim Creat Clear Calc 29.63, Est GFR (MDRD) Af Amer 43 L, Est GFR (MDRD) Non-Af 35 L, BUN/Creatinine Ratio 19.4, Glucose 117 H, Calcium 8.4 L, Phosphorus 3.5, Magnesium 2.1, Total Bilirubin 0.50, AST 28, ALT 17, Alkaline Phosphatase 53, Total Protein 7.1, Albumin 1.9 L, Globulin 5.2 H, A lbumin/Globulin Ratio 0.4 L 07/12/24 12:08: POC Glucose 158 H Radiography Diagnostic Testing: Radiology Impression Abdomen/Pelvis CT 07/11/24 19:58 IMPRESSION: Possible 3 cm prostatic abscess. Findings suspicious for cystitis. Correlate with urinalysis. Age-indeterminate mild compression deformity of L1. Multilevel spondylolisthesis of the lumbar spine. Marked cardiomegaly with interstitial edema and small bilateral pleural effusions. Small volume complex free fluid in the pelvis. Electronically Signed: Iron Noble MD at 22:06 EDT , Physical Exam Const alert, oriented x3 and no apparent distress General Appearance: cooperative and well developed HEENT normocephalic, head/scalp atraumatic, moist oral mucous membranes, oropharynx normal and gingiva normal Eyes PERRL and EOMs intact bilaterally Neck no lymphadenopathy, supple and no JVD Lymph Lymphatic: no lymphadenopathy noted and no lymphedema noted Resp normal respiratory effort, normal air movement and clear to auscultation bilaterally Cardio regular rate, regular rhythm, S1 normal heart sound, S2 normal heart sound and no murmurs Peripheral Pulses: pulses 2+ throughout GI normal to inspection, nondistended, normoactive bowel sounds, soft to palpation, non-tender and non-distended Extremity normal capillary refill, no clubbing, cyanosis or edema and no calf tenderness General Extremity: no tenderness to palpation of joints or extremities Skin General Skin Exam: no breakdown and turgor normal Neuro CN's II-XII intact bilaterally, no focal motor deficits, no sensory deficits noted and deep tendon reflexes 2+ bilaterally Motor Exam: strength 5/5 throughout and general weakness Psych thought process normal, cooperative and affect normal Appearance: appropriate Assessment & Plan Assessment/Plan (1) Prostate abscess: PLAN: Plan #Prostatic abscess after TURP * States he feels better. He was admitted with a complaint of difficulty with urination and perennial pain. He had TURP done on 07/01/2024 on account of BPH and urinary retention. Symptoms as described above have been going on for several days. * Imaging done with CT of the abdomen and pelvis showed possible 3 cm prostatic abscess findings suspicious for cystitis. * Urology on board. Currently on IV Zosyn. Urine cultures pending. * #Left lower extremity cellulitis: Left lower extremity wrapped in bandage. On IV vancomycin and Zosyn. Wound care consulted. #Acute on chronic anemia. * Hb of 7 on admission and is now 7.1. Iron studies pending. Does have a history of upper GI bleed due to peptic ulcer disease. EGD done on 04/19/2024 showed grade 1 esophageal varices and a cratered gastric ulcer with no bleeding but evidence of previous bleeding was treated with heater probe. * Currently on pantoprazole. * Transfuse if Hb less than 7 * Iron studies showed iron level of 24 with iron saturation of 8.6 and ferritin of 130 degrees on the lower side of normal. This shows evidence of iron deficiency anemia. Will consult GI. * Transfused with 1 unit of packed red blood cells. #History of BPH with obstruction: S/p TURP on 07/01/2024 as stated above. On Flomax #Nonischemic cardiomyopathy: Stable. Has known EF of 25%. On losartan and Lasix. Has pacemaker in situ. #Benign essential hypertension: On amlodipine and hydralazine. #Hyperlipidemia: On statin #Permanent A-fib: * Silverio Vasc score is 3. On amiodarone. * Patient has been a bit bradycardic. * Will monitor closely bradycardia worsens will hold amiodarone. * Not anticoagulated due to history of GI bleed and fall risk. * # Pulmonary hypertension: As per echo his right ventricular systolic pressure was 60 we because of bradycardia. Likely due to heart failure. Being diuresed. 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 Insulin sliding scale. Accuchecks ACHS. Also on gabapentin for neuropathy #Peripheral vascular disease with carotid stenosis: Stable. #History of colon cancer: S/p colectomy. DVT prophylaxis: Switch to SCDs on account of anemia. # # Charges/Coding Visit Charges Inpatient E&M: 03162 Subs Hosp L3
[2024-07-12 17:54] LABS: Bedside Glucose 156 mg/dL (74-106)
[2024-07-12] MEDS: 0.9% Saline Lock 10 ML Syringe IV (18:52)
[2024-07-12] MEDS: Gabapentin 400 MG Capsule PO (22:54)
[2024-07-12] MEDS: amLODIPine 2.5 MG Tablet PO (22:55)
[2024-07-12] MEDS: Pravastatin 40 MG Tablet PO (22:55)
[2024-07-12] MEDS: Pantoprazole Sodium 40 MG in 0.9% Normal Saline (100mL MB+) 100 ML 330 MG IV (22:56)
[2024-07-12] MEDS: Latanoprost 0.005% 1 Bottle 1 DRP OPHTHALMIC (22:56)
[2024-07-13] VITALS (9 sets, daily range): BP systolic 139–161; BP diastolic 68–75; PULSE 51–57; RESP 18–20; TEMP 36.4–36.9; O2SAT 92–96
[2024-07-13 00:26] LABS: Bedside Glucose 214 mg/dL (74-106)
[2024-07-13] MEDS: Vancomycin IV 1,000 MG/200 ML BAG 200 MG IV (00:38)
[2024-07-13] MEDS: Insulin Glargine-YFGN 100 UNIT/ML Pen 8 UNIT SC ×2 (01:21→22:43)
[2024-07-13 02:01] LABS: Bedside Glucose 247 mg/dL (74-106)
[2024-07-13 06:24] LABS: Absolute Lymphocyte Count 1.35 X10^3/uL (0.83-4.51); Absolute Neutrophil Count 3.5 X10^3/uL (2.0-7.7); Basophil# 0.04 X10^3/uL; Basophil% 0.7 % (0-1); Eosinophils% 1.8 % (0-5); Hematocrit 29.1 % (40-54); Hemoglobin 8.6 g/dL (13.0-16.5); Lymphocyte # 1.35 X10^3/ul (0.83-4.51); Lymphocyte % 24.2 % (19-41); Mean Corp Hgb Conc 29.6 g/dL (32-36); Mean Corpuscular Hgb 28.2 pg (27.0-32.0); Mean Corpuscular Volume 95.4 fL (80-94); Mean Platelet Vol. 10.1 fl (6.2-12.0); Monocyte% 10.8 % (0-10); NRBC Flagged by Analyzer 0 % (0-5); Neutrophil # 3.47 X10^3/uL (2.7-7.7); Neutrophil % 62.1 % (47-70); POSITIVE MORPHOLOGY YES; Platelet Count 122 K/mm3 (150-450); RBC Distribution Width CV 19.4 % (11.6-14.6); RBC Distribution Width SD 67.7 fl (35.1-43.9); Red Blood Count 3.05 M/mm3 (4.6-6.2); White Blood Count 5.6 K/mm3 (4.4-11.0)
[2024-07-13 06:31] LABS: Differential Indicated SCAN CRITERIA MET
[2024-07-13 06:53] LABS: Anion Gap 3 (5-15); BUN 33 mg/dL (7-18); BUN/Creat Ratio 17.5 RATIO (10-20); Calcium,Total 8.8 mg/dL (8.5-10.1); Chloride 101 mmol/L (98-107); Creatinine, Serum 1.89 mg/dL (0.70-1.30); EST Glomerular Filtration Rate 36 mL/min (>60); Est Glom Filt Rate - Afr Amer 43 mL/min (>60); Estimated Creatinine Clearance 29.94 ml/min; Glucose 160 mg/dL (74-106); Potassium 4.1 mmol/L (3.5-5.1); Sodium Level 137 mmol/L (136-145)
--- NOTE | 2024-07-13 07:00 | US_ITS ---
EXAM: US PELVIS TRANSABDOMINAL, LIMITED CLINICAL INDICATION: possible prostate abscess, TECHNIQUE: Transabdominal pelvic ultrasound (limited) was performed with grayscale and color Doppler imaging. COMPARISON: No relevant prior studies available. FINDINGS: PROSTATE: The transrectal images of the prostate gland demonstrate prominent prostatomegaly. The prostate gland is enlarged measuring 6.7 x 5.0 x 5.6 cm with a volume of 98.3 ml. Prostatic echogenicity is diffusely heterogeneous. No discrete evidence of a prostatic abscess. SEMINAL VESICLES: Seminal vesicles are unremarkable. FREE FLUID: Small amount of free fluid noted within the vesicorectal pouch. BLADDER: There is marked trabeculation of the urinary bladder wall with multiple small diverticula likely related to chronic bladder outlet obstruction. US/Prostate IMPRESSION: 1. Prostatomegaly without discrete evidence of prostatic abscess. 2. Thick-walled markedly trabeculated urinary bladder consistent with chronic bladder outlet obstruction/cystitis. Electronically Signed: Dontrell Adnrade MD at 16:42 EDT ,
[2024-07-13 07:55] LABS: Bedside Glucose 117 mg/dL (74-106)
[2024-07-13 08:32] LABS: Anisocytosis 1+
--- NOTE | 2024-07-13 09:21 | NURSING ---
This RN got a call from Ultrasound saying that pt needed to have prep for the planned Prostate Ultrasound that was ordered. Pt has not orders. Dr. Patel did not want to give an order as Dr. Villanueva put the order in. Dr. Villanueva made aware and ordered fleets enema x1. Ultrasound said that they will plan on doing the procedure around 1330 today.
--- NOTE | 2024-07-13 10:10 | CASEMGMT ---
Addendum entered by Lori Nogueira 07/13/24 11:30: Received a message from [facility], they are actively providing care to pt and will resume upon dc. 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 Resumption order entered. Addendum entered by Lori Nogueira 07/13/24 10:52: TC back received from pt son Vin, he states that pt grandson does not live with him but assists in care. He states pt has [facility]. Referral sent via [facility] to determine disciplines seeing pt. Addendum entered by Lori Nogueira 07/13/24 10:49: TC to pt son Vin, left requesting returned call. Original Note: YONIS ELLIS Assessment: Face to Face with pt for initial transition planning/care coordination assessment. YONIS ELLIS introduced self and role at [facility], pt voices understanding and consents to assessment. Pt is A&O x4 and answers all questions appropriately at this time. Pt lying in bed in no distress with oxygen on. Care providers, pharmacy, and demographics verified/updated. Admitting Dx: prostatic abscess status post turp Strata Score: 3 PCP:Mike Specialists:Kay, uro; Dottie, cardio Preferred Pharmacy: [facility] Retail Insurance: Rkylin Prescription Benefit: yes LNOK: Veda Talbert, ; Kaylee Gutierrez, dtr Living Arrangements: Pt lives with and grandson in a single story home with 2 steps to enter with a rail. Pt reports he is I in ADLs and his and grandson assists with IADLs. Pt grandson does laundry and meds. Pt denies concerns at home. Transportation: Pt drives self and denies concerns with transportation. DME:oxygen through [employer] with portable concentrator, raised toilet seat, FWW, BGM with sufficient supply of strips and needles, insulin with sufficient supply of needles, shower chair, rollator, cane, stairlift to basement. HHC/SNF: Pt reports he is active with HHC right now, he asks this RN CALEB to call his son Vin to confirm who it is with. Pt denies SNF stays. Pt states no concerns with going home at time of dc. He is agreeable to resuming the HHC and denies need for a list of other options. Pt states he needs to urinate, updated aide. Pt states no further concerns/needs. CM to follow. Advised pt to ask CM if any further question/concerns/needs arise, voices understanding. Pt Goal: Home with HHC resuming Plan: Home with HHC resuming pending course of hospitalization Sam SOMERS CM
--- NOTE | 2024-07-13 10:46 | WOUNDNOTE ---
wound photo: left lower leg
--- NOTE | 2024-07-13 10:46 | WOUNDNOTE ---
wound photo: right lower leg
--- NOTE | 2024-07-13 10:47 | WOUNDNOTE ---
Was consulted on patient for wounds to bilateral lower legs. there are very small scattered scabs noted. patient with hemosiderin staining to bilateral lower legs. no drainage noted. no need for wound care at this time.
[2024-07-13] MEDS: Pantoprazole Sodium 40 MG in 0.9% Normal Saline (100mL MB+) 100 ML 330 MG IV ×2 (11:01→22:30)
[2024-07-13] MEDS: Fleet Enema 133 ML RC (11:02)
[2024-07-13] MEDS: Menthol/Lanolin/Calamine/Znox 113 GM Tube 1 APPLIC TOPICAL ×2 (11:18→22:44)
[2024-07-13] MEDS: Heparin Injection (Vial) 5,000 UNIT/ML VIAL 5000 UNIT SC ×2 (11:20→22:44)
[2024-07-13 12:42] LABS: Bedside Glucose 116 mg/dL (74-106)
--- NOTE | 2024-07-13 13:31 | PN_ITS ---
Subjective Subjective Patient seen and examined. He had no complaints. He is for prostate ultrasound and possible biopsy today. Review of systems otherwise negative. GI also on board on account of acute on chronic anemia. He has otherwise remained stable. Objective Data Objective Data Vital Signs: Vital Signs Temp Pulse Resp BP Pulse Ox O2 Del Method O2 Flow Rate 98.2 F 52 L 20 H 151/68 H 94 Nasal Cannula 3 07/13/24 10:35 07/13/24 10:35 07/13/24 10:35 07/13/24 10:35 07/13/24 10:35 07/13/24 10:35 07/13/24 10:35 Oxygen Flow Rate (L/min) 3 Oxygen Delivery Method Nasal Cannula Weight: 196 lb Body Mass Index (BMI) 25.8 Intake & Output: Intake and Output for Last 24 Hours 07/11/24 07/12/24 07/13/24 23:59 23:59 23:59 Intake Total 1366 / 1366 420 / 420 Output Total 1650 / 1650 200 / 200 Balance -284 / -284 220 / 220 Lab / Micro Data 07/13/24 06:10 07/13/24 06:10 Labs: Laboratory Results - last 24 hr 07/12/24 15:50: Blood Type A POSITIVE, Antibody Screen NEGATIVE, Crossmatch See Detail 07/12/24 16:55: POC Glucose 156 H 07/12/24 22:48: POC Glucose 214 H 07/13/24 01:23: POC Glucose 247 H 07/13/24 06:10: WBC 5.6, RBC 3.05 L, Hgb 8.6 L, Hct 29.1 L, MCV 95.4 H, MCH 28.2, MCHC 29.6 L, RDW Std Deviation 67.7 H, RDW Coeff of Rachelle 19.4 H, Plt Count 122 L, MPV 10.1, Immature Gran % (Auto) 0.400, Neut % (Auto) 62.1, Lymph % (Auto) 24.2, [place] % (Auto) 10.8 H, Eos % (Auto) 1.8, Baso % (Auto) 0.7, Absolute Neuts (auto) 3.5, Absolute Lymphs (auto) 1.35, Nucleated RBC % 0, Anisocytosis 1+, Sodium 137, Potassium 4.1, Chloride 101, Carbon Dioxide 33.0 H, Anion Gap 3 L, BUN 33 H, Creatinine 1.89 H, Estim Creat Clear Calc 29.94, Est GFR (MDRD) Af Amer 43 L, Est GFR (MDRD) Non-Af 36 L, BUN/Creatinine Ratio 17.5, Glucose 160 H, Calcium 8.8 07/13/24 07:14: POC Glucose 117 H 07/13/24 11:05: POC Glucose 116 H Physical Exam Const alert, oriented x3, no apparent distress and well nourished; Negative for average body habitus or healthy appearing General Appearance: cooperative and well developed HEENT normocephalic, head/scalp atraumatic, moist oral mucous membranes, oropharynx normal and gingiva normal; Negative for hearing grossly normal bilaterally Eyes PERRL and EOMs intact bilaterally; Negative for conjunctivae normal Eyes Narrative: Significant conjunctival pallor bilaterally, no scleral icterus Neck no lymphadenopathy, supple and no JVD Lymph Lymphatic: no lymphadenopathy noted and no lymphedema noted Resp normal respiratory effort, normal air movement, no retractions, no use of accessory muscles and clear to auscultation bilaterally Cardio regular rate, regular rhythm, S1 normal heart sound, S2 normal heart sound, no rub, no gallops and no clicks Cardio Narrative: 4 out of 6 systolic murmur loudest at right upper sternal border Peripheral Pulses: pulses 2+ throughout GI normal to inspection, nondistended, normoactive bowel sounds, soft to palpation, non-tender and non-distended Extremity normal capillary refill, no clubbing, cyanosis or edema and no calf tenderness General Extremity: no tenderness to palpation of joints or extremities Skin General Skin Exam: no breakdown and turgor normal Neuro oriented x3, CN's II-XII intact bilaterally, moves all extremities, no focal motor deficits, no sensory deficits noted and deep tendon reflexes 2+ bilaterally Speech: speech normal Motor Exam: strength 5/5 throughout and general weakness Psych thought process normal, cooperative and affect normal Appearance: appropriate Assessment & Plan Assessment/Plan (1) Prostate abscess: PLAN: Plan #Prostatic abscess after TURP * States he feels better. He was admitted with a complaint of difficulty with urination and perennial pain. He had TURP done on 07/01/2024 on account of BPH and urinary retention. Symptoms as described above have been going on for several days. * Imaging done with CT of the abdomen and pelvis showed possible 3 cm prostatic abscess findings suspicious for cystitis. * Urology on board. Currently on IV Zosyn. Urine cultures pending. * for prosate ultrasound with possible biopsy today * #Left lower extremity cellulitis: Left lower extremity wrapped in bandage. On IV vancomycin and Zosyn. Wound care consulted. #Acute on chronic anemia. * Was transfused with 1 unit of packed red blood cells. Hemoglobin today is 8.6. * Currently on IV pantoprazole. * Does have a history of upper GI bleed due to peptic ulcer disease. EGD done on 04/19/2024 showed grade 1 esophageal varices and a cratered gastric ulcer with no bleeding but evidence of previous bleeding was treated with heater probe. * Currently on pantoprazole. * Transfuse if Hb less than 7 * Iron studies showed iron level of 24 with iron saturation of 8.6 and ferritin of 130 degrees on the lower side of normal. This shows evidence of iron deficiency anemia. * GI consulted. Await recommendations. * #History of BPH with obstruction: S/p TURP on 07/01/2024 as stated above. On Flomax #Nonischemic cardiomyopathy: Stable. Has known EF of 25%. On losartan and Lasix. Has pacemaker in situ. #Benign essential hypertension: On amlodipine and hydralazine. #Hyperlipidemia: On statin #Permanent A-fib: * Silverio Vasc score is 3. On amiodarone. * Patient has been a bit bradycardic. * Will monitor closely bradycardia worsens will hold amiodarone. * Not anticoagulated due to history of GI bleed and fall risk. * # Pulmonary hypertension: As per echo his right ventricular systolic pressure was 60 we because of bradycardia. Likely due to heart failure. Being diuresed. 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 Insulin sliding scale. Accuchecks ACHS. Also on gabapentin for neuropathy #Peripheral vascular disease with carotid stenosis: Stable. #History of colon cancer: S/p colectomy. DVT prophylaxis: Switch to SCDs on account of anemia. # # Charges/Coding Visit Charges Inpatient E&M: 47135 Subs Hosp L2
--- NOTE | 2024-07-13 15:42 | CASEMGMT ---
Social Work- Pt has directives on chart naming Veda, as primary agent. REBECCA Saldana
[2024-07-13] MEDS: hydrALAZINE 50 MG Tablet PO ×2 (15:56→22:41)
[2024-07-13] MEDS: Piperacil/Tazobactam 3.375 GM in 0.9% Normal Saline (50mL MB+) 50 ML IV ×2 (16:00→22:51)
[2024-07-13] MEDS: Amiodarone 200 MG Tablet PO (16:01)
[2024-07-13] MEDS: Ferrous Sulfate 325 MG Tablet PO (16:01)
[2024-07-13] MEDS: Furosemide 40 MG Tablet PO (16:03)
[2024-07-13 16:39] LABS: Bedside Glucose 129 mg/dL (74-106)
[2024-07-13] MEDS: Albuterol 2.5 MG/3 ML VIAL.NEB. INHALATION (20:35)
[2024-07-13] MEDS: 0.9% Saline Lock 10 ML Syringe IV (22:40)
[2024-07-13] MEDS: Gabapentin 400 MG Capsule PO (22:40)
[2024-07-13] MEDS: Magnesium Chloride 64 MG Delay Rel.Tablet PO (22:41)
[2024-07-13] MEDS: amLODIPine 2.5 MG Tablet PO (22:41)
[2024-07-13] MEDS: Latanoprost 0.005% 1 Bottle 1 DRP OPHTHALMIC (22:49)
[2024-07-13] MEDS: Pravastatin 40 MG Tablet PO (22:51)
[2024-07-14] VITALS (16 sets, daily range): BP systolic 125–141; BP diastolic 63–74; PULSE 50–52; RESP 16–22; TEMP 36.4–36.6; O2SAT 86–100
[2024-07-14 00:54] LABS: Vancomycin, Trough Level 13.3 ug/mL (5.0-15.0)
--- NOTE | 2024-07-14 01:11 | PCM.RX.CS ---
Consult Antibiotic Management Pharmacy has been consulted to manage selected antibiotic: Vancomycin Type of Intervention Type of Consult: Follow-up Labs Labs: Sodium 137 mmol/L (136-145) 07/13/24 06:10 Potassium 4.1 mmol/L (3.5-5.1) 07/13/24 06:10 Chloride 101 mmol/L (98-107) 07/13/24 06:10 Carbon Dioxide 33.0 mmol/L (21.0-32.0) H 07/13/24 06:10 Anion Gap 3 (5-15) L 07/13/24 06:10 BUN 33 mg/dL (7-18) H 07/13/24 06:10 Creatinine 1.89 mg/dL (0.70-1.30) H 07/13/24 06:10 Est GFR (MDRD) Af Amer 43 mL/min (>60) L 07/13/24 06:10 Est GFR (MDRD) Non-Af 36 mL/min (>60) L 07/13/24 06:10 BUN/Creatinine Ratio 17.5 RATIO (10-20) 07/13/24 06:10 Glucose 160 mg/dL (74-106) H 07/13/24 06:10 Vancomycin Trough 13.3 ug/mL (5.0-15.0) 07/14/24 00:16 Goal Trough Goal Trough: 15-20 mcg/mL Pharmacy Plan for Drug Dosing Pharmacy Plan for Drug Dosing: Pharmacy Service will continue to monitor and adjust dosing as required. TROUGH 13.3 @ 23.5 HOURS. INCREASE TO 1250MG QD AND FOLLOW UP TROUGH PRIOR TO 3RD DAOS Follow-Up Labs Follow-Up Labs: Trough: Vancomycin Date/Time Labs Ordered Labs to be done on [date and time ordered]: 07/16 @ 0030
[2024-07-14 01:22] LABS: Bedside Glucose 170 mg/dL (74-106)
[2024-07-14] MEDS: 0.9% Saline Lock 10 ML Syringe IV ×3 (02:07→09:07)
[2024-07-14] MEDS: Vancomycin HCl 1,250 MG in 0.9% Normal Saline (250mL Bag) 250 ML 167 MG IV (02:14)
[2024-07-14] MEDS: Piperacil/Tazobactam 3.375 GM in 0.9% Normal Saline (50mL MB+) 50 ML IV ×3 (05:55→22:12)
[2024-07-14] MEDS: Albuterol 2.5 MG/3 ML VIAL.NEB. INHALATION ×4 (06:52→20:05)
[2024-07-14 07:09] LABS: Absolute Lymphocyte Count 1.06 X10^3/uL (0.83-4.51); Absolute Neutrophil Count 3.2 X10^3/uL (2.0-7.7); Basophil# 0.05 X10^3/uL; Eosinophil# 0.08 X10^3/uL; Eosinophils% 1.6 % (0-5); Hematocrit 28.9 % (40-54); Hemoglobin 8.4 g/dL (13.0-16.5); Lymphocyte # 1.06 X10^3/ul (0.83-4.51); Lymphocyte % 21.5 % (19-41); Mean Corp Hgb Conc 29.1 g/dL (32-36); Mean Corpuscular Volume 96.3 fL (80-94); Mean Platelet Vol. 10.5 fl (6.2-12.0); Monocyte# 0.55 X10^3/uL; Monocyte% 11.1 % (0-10); NRBC Flagged by Analyzer 0 % (0-5); Neutrophil # 3.18 X10^3/uL (2.7-7.7); Neutrophil % 64.4 % (47-70); POSITIVE MORPHOLOGY YES; Platelet Count 125 K/mm3 (150-450); RBC Distribution Width CV 19.8 % (11.6-14.6); White Blood Count 4.9 K/mm3 (4.4-11.0)
[2024-07-14 07:20] LABS: Bedside Glucose 80 mg/dL (74-106)
[2024-07-14 07:27] LABS: Differential Indicated SCAN CRITERIA MET
--- NOTE | 2024-07-14 07:33 | PCM.CONS.B ---
Consult Date of Consult: 07/14/24 Reason for Consult 89-year-old male status post TURP several weeks ago and since back to the hospital with symptoms of UTI CT scan was done that was a questionable reading of a prostate abscess but ultrasound done yesterday confirms that there's no evidence of the prostate abscess. Very likely has a urinary tract infection urine cultures pending. Patient is been doing better. Why count is normal clinically stable. He's able to urinate is not retention of urine anymore since the surgery. I think he can probably go home with antibiotics once we know the culture show call urology with questions.
[2024-07-14 09:02] LABS: Anisocytosis 1+
[2024-07-14] MEDS: Furosemide 40 MG Tablet PO ×2 (09:07→17:42)
[2024-07-14] MEDS: Ferrous Sulfate 325 MG Tablet PO ×2 (09:07→17:42)
[2024-07-14] MEDS: Cholecalciferol (VIT D3) 25 MCG TABLET (1,000 UNITS) PO (10:31)
[2024-07-14] MEDS: Heparin Injection (Vial) 5,000 UNIT/ML VIAL 5000 UNIT SC ×2 (10:31→21:56)
[2024-07-14] MEDS: Pantoprazole Sodium 40 MG in 0.9% Normal Saline (100mL MB+) 100 ML 330 MG IV ×2 (10:31→22:03)
[2024-07-14] MEDS: hydrALAZINE 50 MG Tablet PO ×3 (10:32→17:42)
[2024-07-14] MEDS: Magnesium Chloride 64 MG Delay Rel.Tablet PO ×2 (10:32→21:57)
[2024-07-14] MEDS: Amiodarone 200 MG Tablet PO (10:32)
[2024-07-14] MEDS: Tamsulosin HCl 0.4 MG Capsule 0.8 MG PO (10:32)
[2024-07-14] MEDS: Menthol/Lanolin/Calamine/Znox 113 GM Tube 1 APPLIC TOPICAL ×2 (10:32→21:55)
[2024-07-14 10:52] LABS: Anion Gap 5 (5-15); BUN 29 mg/dL (7-18); BUN/Creat Ratio 16.7 RATIO (10-20); Calcium,Total 8.6 mg/dL (8.5-10.1); Chloride 103 mmol/L (98-107); Creatinine, Serum 1.74 mg/dL (0.70-1.30); EST Glomerular Filtration Rate 39 mL/min (>60); Est Glom Filt Rate - Afr Amer 48 mL/min (>60); Estimated Creatinine Clearance 32.53 ml/min; Glucose 79 mg/dL (74-106); Potassium 3.5 mmol/L (3.5-5.1); Sodium Level 140 mmol/L (136-145)
--- NOTE | 2024-07-14 11:02 | PN_ITS ---
Subjective Subjective Patient seen and examined. His sister was by his bedside. He had no complaints and had an uneventful night. He felt well. Review of systems otherwise negative. HE has remained hemodynamically stable, though he does have mild symptomatic bradycardia with HR in the low 50s Objective Data Objective Data Vital Signs: Vital Signs Temp Pulse Resp BP Pulse Ox O2 Del Method O2 Flow Rate 97.6 F L 51 L 18 141/73 H 98 Nasal Cannula 2 07/14/24 10:30 07/14/24 10:32 07/14/24 10:30 07/14/24 10:30 07/14/24 10:30 07/14/24 10:30 07/14/24 10:30 Oxygen Flow Rate (L/min) 2 Oxygen Delivery Method Nasal Cannula Weight: 196 lb Body Mass Index (BMI) 25.8 Intake & Output: Intake and Output for Last 24 Hours 07/12/24 07/13/24 07/14/24 23:59 23:59 23:59 Intake Total 1366 / 1366 940 / 940 375 / 375 Output Total 1650 / 1650 850 / 850 750 / 750 Balance -284 / -284 90 / 90 -375 / -375 Lab / Micro Data 07/14/24 06:49 07/14/24 06:49 Labs: Laboratory Results - last 24 hr 07/13/24 11:05: POC Glucose 116 H 07/13/24 16:18: POC Glucose 129 H 07/13/24 22:35: POC Glucose 170 H 07/14/24 00:16: Vancomycin Trough 13.3 07/14/24 06:14: POC Glucose 80 07/14/24 06:49: WBC 4.9, RBC 3.00 L, Hgb 8.4 L, Hct 28.9 L, MCV 96.3 H, MCH 28.0, MCHC 29.1 L, RDW Std Deviation 69.0 H, RDW Coeff of Rachelle 19.8 H, Plt Count 125 L, MPV 10.5, Immature Gran % (Auto) 0.400, Neut % (Auto) 64.4, Lymph % (Auto) 21.5, [place] % (Auto) 11.1 H, Eos % (Auto) 1.6, Baso % (Auto) 1.0, Absolute Neuts (auto) 3.2, Absolute Lymphs (auto) 1.06, Nucleated RBC % 0, Anisocytosis 1+, Sodium 140, Potassium 3.5, Chloride 103, Carbon Dioxide 32.0, Anion Gap 5, B UN 29 H, Creatinine 1.74 H, Estim Creat Clear Calc 32.53, Est GFR (MDRD) Af Amer 48 L, Est GFR (MDRD) Non-Af 39 L, BUN/Creatinine Ratio 16.7, Glucose 79, Calcium 8.6 Micro: Microbiology 07/12/24 01:27 Urine, Clean Catch Urine Culture - Final Gram negative karina Mixed Gram Positive Organisms Radiography Diagnostic Testing: Radiology Impression Prostate Ultrasound 07/13/24 07:00 IMPRESSION: 1. Prostatomegaly without discrete evidence of prostatic abscess. 2. Thick-walled markedly trabeculated urinary bladder consistent with chronic bladder outlet obstruction/cystitis. Electronically Signed: Dontrell Andrade MD at 16:42 EDT Reading Location ID and State: [address] [place] [address] Tel , Service support , Physical Exam Const alert, oriented x3, no apparent distress and well nourished; Negative for average body habitus or healthy appearing General Appearance: cooperative and well developed HEENT normocephalic, head/scalp atraumatic, hearing grossly normal bilaterally, moist oral mucous membranes, oropharynx normal and gingiva normal Eyes PERRL, EOMs intact bilaterally and conjunctivae normal Neck no lymphadenopathy, supple and no JVD Lymph Lymphatic: no lymphadenopathy noted and no lymphedema noted Resp normal respiratory effort, normal air movement, no retractions, no use of accessory muscles and clear to auscultation bilaterally Auscultation: crackles Cardio regular rate, regular rhythm, S1 normal heart sound, S2 normal heart sound, no rub, no gallops and no clicks Cardio Narrative: 4 out of 6 systolic murmur loudest at right upper sternal border Peripheral Pulses: pulses 2+ throughout GI normal to inspection, nondistended, normoactive bowel sounds, soft to palpation, non-tender and non-distended Extremity normal capillary refill, no clubbing, cyanosis or edema and no calf tenderness General Extremity: no tenderness to palpation of joints or extremities Skin Skin Narrative: has some erythema of the lower extremities, over the shins, with skin very dry and with some scab formation. General Skin Exam: no breakdown and turgor normal Neuro oriented x3, CN's II-XII intact bilaterally, moves all extremities, no focal motor deficits, no sensory deficits noted and deep tendon reflexes 2+ bilaterally Neuro Narrative: Significant generalized weakness with no focal deficits Speech: speech normal Motor Exam: strength 5/5 throughout and general weakness Psych thought process normal, cooperative and affect normal Appearance: appropriate Assessment & Plan Assessment/Plan (1) Prostate abscess: PLAN: Plan #Prostatic abscess after TURP * States he feels better. He was admitted with a complaint of difficulty with urination and perennial pain. He had TURP done on 07/01/2024 on account of BPH and urinary retention. Symptoms as described above have been going on for several days. * Imaging done with CT of the abdomen and pelvis showed possible 3 cm prostatic abscess findings suspicious for cystitis. * Urology on board. Currently on IV Zosyn. Urine cultures pending. * Prostate ultrasound showed no evidence of abscess. Prostate biopsy done. Results pending. * Urine culture grew gram-negative karina and mixed gram-positive organisms. * #Left lower extremity cellulitis: Left lower extremity wrapped in bandage. On IV vancomycin and Zosyn. Wound care consulted. Will DC vancomycin. #Acute on chronic anemia. * Was transfused with 1 unit of packed red blood cells. Hemoglobin today is 8.4 * Currently on IV pantoprazole. * Does have a history of upper GI bleed due to peptic ulcer disease. EGD done on 04/19/2024 showed grade 1 esophageal varices and a cratered gastric ulcer with no bleeding but evidence of previous bleeding was treated with heater probe. * Currently on pantoprazole. * Transfuse if Hb less than 7 * Iron studies showed iron level of 24 with iron saturation of 8.6 and ferritin of 130 degrees on the lower side of normal. This shows evidence of iron deficiency anemia. * GI consulted. Still awaiting recs * #History of BPH with obstruction: S/p TURP on 07/01/2024 as stated above. On Flomax #Nonischemic cardiomyopathy: Stable. Has known EF of 25%. On losartan and Lasix. Has pacemaker in situ. #Benign essential hypertension: On amlodipine and hydralazine. #Hyperlipidemia: On statin #Permanent A-fib: * Silverio Vasc score is 3. On amiodarone. * Patient has been a bit bradycardic. * Will monitor closely bradycardia worsens will hold amiodarone. * Not anticoagulated due to history of GI bleed and fall risk. * # Pulmonary hypertension: As per echo his right ventricular systolic pressure was 60 we because of bradycardia. Likely due to heart failure. Being diuresed. 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 Insulin sliding scale. Accuchecks ACHS. Also on gabapentin for neuropathy #Peripheral vascular disease with carotid stenosis: Stable. #History of colon cancer: S/p colectomy. DVT prophylaxis:SCDs # # Charges/Coding Visit Charges Inpatient E&M: 70296 Subs Hosp L2
[2024-07-14] MEDS: Insulin Lispro 100 UNIT/ML INSULN.PEN SC ×2 (11:59→17:01)
[2024-07-14 12:29] LABS: Bedside Glucose 161 mg/dL (74-106)
[2024-07-14 16:37] LABS: Bedside Glucose 169 mg/dL (74-106)
[2024-07-14] MEDS: Senna/Docusate Sodium 1 Tablet 2 TABLET PO (17:44)
--- NOTE | 2024-07-14 18:01 | CON.PCM.GI_ITS ---
HPI Consult Data Date of Consult: 07/14/24 HPI Narrative Reason for Consultation: Anemia HPI Narrative: JASON STANLEY, is a 89 M who presented to the emergency department at [facility] on 07/11/2024 with a chief complaint of decreased urine output, discolored urine and pain in the perineal region. The patient had a TURP done on 07/01/2024 due to BPH and urinary retention. He also has had some lower abdominal pain. His last bowel movement was on the day of presentation. He is a stable thrombocytopenia. His hemoglobin was 7.0 which is down from his baseline of 8-9 and most recently it was 8.6 on 06/25/2024. Anemia is macrocytic in nature. His chemistry panel shows normal electrolytes and elevated BUN and serum creatinine at 38 and 2.1 respectively which are his baseline. a CT of his abdomen pelvis was performed and demonstrated a 3 cm prostatic abscess, findings consistent with cystitis, and age-indeterminate mild compression fracture of L1, multilevel spondylolisthesis of the lumbar spine and marked cardiomegaly with interstitial edema and small bilateral pleural effusions. He also appears to have chronic stable bilateral renal cysts and severe aortoiliac atherosclerotic disease. I was called to see him due to his anemia. He underwent a recent upper endoscopy by myself back in April 2024 I was discovered to have an upper GI bleed secondary to gastric ulcers. FOR[facility]LY [facility] Medical History Prostate CA Penetrating wound of left forearm History of echocardiogram History of atrial fibrillation Wears hearing aid Wears glasses Wears dentures Cancer Depression Anxiety Abrasion Insulin dependent diabetes mellitus Arthritis Walker as ambulation aid Prostate disease Indwelling urethral catheter present History of renal disease Low iron Anemia High cholesterol Easy bruising Back pain Dietary restriction Difficulty swallowing Esophageal varices History of ulceration Former smoker On home oxygen therapy Shortness of breath on exertion History of edema Hypertension History of rheumatic fever History of CHF (congestive heart failure) Cardiology follow-up encounter Presence of cardiac pacemaker Atrial fibrillation with slow ventricular response Peripheral vascular disease Lumbar stenosis Gout DDD (degenerative disc disease) Carotid artery stenosis Chronic diastolic (congestive) heart failure Non-rheumatic aortic stenosis Atherosclerosis of coronary artery of koi heart without angina pectoris Secondary pulmonary arterial hypertension Essential (primary) hypertension Left bundle branch block Stool guaiac positive Iron deficiency anemia Personal history of colonic polyps History of malignant neoplasm of colon Chronic kidney disease, stage III (moderate) Thoracic aortic aneurysm without rupture Colon cancer, ascending Dyslipidemia Type II diabetes mellitus Home Medications ?Medication ?Instructions ?Recorded ?Last Taken ?Type pravastatin 40 mg tablet 40 mg PO QHS cholesterol 05/14/16 06/30/24 History cholecalciferol (vitamin D3) 25 1,000 unit PO DAILY vitamin 07/16/16 06/30/24 History mcg (1,000 unit) tablet cyanocobalamin (vitamin B-12) 1,000 mcg PO DAILY supplement 07/16/16 06/30/24 History 1,000 mcg tablet sitagliptin phosphate 50 mg tablet 50 mg PO DAILY diabetes 06/25/19 06/30/24 History docusate sodium 100 mg capsule 100 mg PO BID PRN sool softener 09/11/19 06/30/24 History (Colace) ferrous sulfate 325 mg (65 mg 325 mg PO BID iron supplement 09/11/19 06/30/24 History iron) tablet (Feosol) folic acid 400 mcg tablet 800 mcg PO DAILY vitamin 09/11/19 06/30/24 History insulin glargine 100 unit/mL (3 8 unit subcut QHS diabetes 09/11/19 06/30/24 History mL) subcutaneous pen blood sugar diagnostic (True 03/18/24 Unknown History Metrix Glucose Test Strip) gabapentin 400 mg capsule 400 mg PO QHS nerve pain 03/18/24 06/30/24 History latanoprost 0.005 % eye drops 1 drp ophthalmic (eye) QHS eye 03/18/24 06/30/24 History health pen needle, diabetic 31 gauge x 03/18/24 Unknown History 01/31 (Droplet Pen Needle) potassium chloride 20 mEq 20 meq PO DAILY supplement 03/18/24 06/30/24 History tablet,extended release(part/cryst) furosemide 40 mg tablet (Lasix) 40 mg PO BIDCM Edema #120 tabs 03/20/24 06/30/24 Rx hydralazine 50 mg tablet 50 mg PO 4X/DAY BP 04/02/24 06/30/24 History pantoprazole 40 mg tablet,delayed 40 mg PO DAILY 30 days #30 tabs 05/05/24 07/01/24 Rx release finasteride 5 mg tablet 5 mg PO DAILY 30 days #30 tabs 05/22/24 06/30/24 Rx magnesium chloride 64 mg 64 mg PO BID Supplement #60 tabs 05/22/24 06/30/24 Rx (magnesium chloride) tablet,delayed release (Mag 64) amlodipine 5 mg tablet 2.5 mg (1/2 x 5 mg) PO HS 30 days 05/27/24 06/30/24 Rx #15 tabs amiodarone 200 mg tablet 200 mg PO DAILY #90 tabs 06/15/24 07/01/24 Rx tamsulosin 0.4 mg capsule (Flomax) 0.8 mg PO DAILY 07/11/24 Unknown History torsemide 20 mg tablet 20 mg PO DAILY 07/11/24 Unknown History Allergy/AdvReac Type Severity Reaction Status Date / Time Milk Containing Products AdvReac NEEDS Verified 07/11/24 19:35 (Dairy) (Milk Containing FOLLOW-UP Products) quinapril (From Accupril) AdvReac Other Verified 07/11/24 19:35 Family History Mother Colon cancer Heart disease Hypertension CAD (coronary artery disease) Father Cancer prostate CVA (cerebral vascular accident) CAD (coronary artery disease) Brother CAD (coronary artery disease) CABG Brother CAD (coronary artery disease) CABG Surgical History S/P TURP (status post transurethral resection of prostate) History of esophagogastroduodenoscopy (EGD) History of left heart catheterization (07/2001) H/O colectomy S/P colonoscopy S/P cataract extraction Social History household members: spouse Smoking Status: Former smoker how long ago did patient quit smokin years ago alcohol intake: never substance use type: does not use ROS Constitutional Constitutional: Denies anorexia, change in weight, chills, fatigue, fever(s), malaise, night sweats, weakness or other Eyes Eyes: Denies blurry vision, change in eye color, change in vision, discharge from eye(s), double vision, erythema, eye pain, loss of vision or other ENT HEENT: Reports abnormal hearing and hearing loss; Denies dysphagia, ear pain, epistaxis, headache(s), nasal congestion, nasal discharge, post nasal drip, sinus pressure, sore throat or other Cardiovascular Cardiovascular: Reports edema; Denies chest pain, claudication, dyspnea on exertion, lightheadedness, orthopnea, palpitations, paroxysmal nocturnal dyspnea, rapid heart rate, syncope or other Respiratory/Chest Respiratory/Chest: Reports shortness of breath with exertion; Denies cough, dyspnea, excessive phlegm production, hemoptysis, productive cough, shortness of breath at rest, wheezing or other Gastrointestinal Gastrointestinal: Reports other Details: Suprapubic pain ; Denies coffee ground emesis, constipation, diarrhea, dyspepsia, hematemesis, hematochezia, loose stools, melena, nausea or vomiting Genitourinary Genitourinary: Reports difficulty urinating, dysuria and urinary incontinence; Denies burning urination, hematuria, nocturia, urinary frequency, urinary hesitancy, urinary urgency or other Musculoskeletal Musculoskeletal: Reports back pain and joint stiffness; Denies arthralgias, joint pain, joint swelling, myalgias, neck pain or other Neurologic Neurologic: Denies abnormal gait, abnormal speech, confusion, disequilibrium, dizziness, focal weakness, headache(s), numbness, paresthesias, seizure-like activity, seizures, syncope, tingling, tremor(s) or other Psychiatric Psychiatric: Denies anxiety, depression, homicidal ideation, suicidal ideation or other Endocrine Endocrinology: Denies change in body appearance, cold intolerance, excessive sweating, heat intolerance, polydipsia, polyuria or other Hematologic/Lymphatic Hematologic/Lymphatic: Denies anemia, easy bleeding, easy bruising, lymphadenopathy or other Allergic/Immunologic Allergic/Immunologic: Denies rhinitis, hives, eczemia, asthma or other Physical Exam Const alert, oriented x3, no apparent distress and well nourished; Negative for average body habitus or healthy appearing General Appearance: cooperative and well developed HEENT normocephalic, head/scalp atraumatic, hearing grossly normal bilaterally, moist oral mucous membranes, oropharynx normal and gingiva normal Eyes PERRL, EOMs intact bilaterally and conjunctivae normal Neck no lymphadenopathy, supple and no JVD Lymph Lymphatic: no lymphadenopathy noted and no lymphedema noted Resp normal respiratory effort, normal air movement, no retractions, no use of accessory muscles and clear to auscultation bilaterally Auscultation: crackles Cardio regular rate, regular rhythm, S1 normal heart sound, S2 normal heart sound, no rub, no gallops and no clicks Cardio Narrative: 4 out of 6 systolic murmur loudest at right upper sternal border Peripheral Pulses: pulses 2+ throughout GI normal to inspection, nondistended, normoactive bowel sounds, soft to palpation, non-tender and non-distended Extremity normal capillary refill, no clubbing, cyanosis or edema and no calf tenderness General Extremity: no tenderness to palpation of joints or extremities Skin Skin Narrative: has some erythema of the lower extremities, over the shins, with skin very dry and with some scab formation. General Skin Exam: no breakdown and turgor normal Neuro oriented x3, CN's II-XII intact bilaterally, moves all extremities, no focal motor deficits, no sensory deficits noted and deep tendon reflexes 2+ bilaterally Neuro Narrative: Significant generalized weakness with no focal deficits Speech: speech normal Motor Exam: strength 5/5 throughout and general weakness Psych thought process normal, cooperative and affect normal Appearance: appropriate Lab / Micro Data 07/14/24 06:49 07/14/24 06:49 Labs: Laboratory Results - last 24 hr 07/13/24 22:35: POC Glucose 170 H 07/14/24 00:16: Vancomycin Trough 13.3 07/14/24 06:14: POC Glucose 80 07/14/24 06:49: WBC 4.9, RBC 3.00 L, Hgb 8.4 L, Hct 28.9 L, MCV 96.3 H, MCH 28.0, MCHC 29.1 L, RDW Std Deviation 69.0 H, RDW Coeff of Rachelle 19.8 H, Plt Count 125 L, MPV 10.5, Immature Gran % (Auto) 0.400, Neut % (Auto) 64.4, Lymph % (Auto) 21.5, [place] % (Auto) 11.1 H, Eos % (Auto) 1.6, Baso % (Auto) 1.0, Absolute Neuts (auto) 3.2, Absolute Lymphs (auto) 1.06, Nucleated RBC % 0, Anisocytosis 1+, Sodium 140, Potassium 3.5, Chloride 103, Carbon Dioxide 32.0, Anion Gap 5, B UN 29 H, Creatinine 1.74 H, Estim Creat Clear Calc 32.53, Est GFR (MDRD) Af Amer 48 L, Est GFR (MDRD) Non-Af 39 L, BUN/Creatinine Ratio 16.7, Glucose 79, Calcium 8.6 07/14/24 11:58: POC Glucose 161 H 07/14/24 16:10: POC Glucose 169 H Micro: Microbiology 07/12/24 01:27 Urine, Clean Catch Urine Culture - Final Gram negative karina Mixed Gram Positive Organisms Assessment & Plan Assessment/Plan (1) Nonsustained ventricular tachycardia: (2) Non-ischemic cardiomyopathy: (3) Atrial fibrillation: QUALIFIERS: Atrial fibrillation type: permanent Qualified Code(s): I48.21 - Permanent atrial fibrillation (4) CHF exacerbation: QUALIFIERS: Heart failure type: unspecified Qualified Code(s): I 50.9 - Heart failure, unspecified PLAN: Plan Patient is an 89-year-old male who presented to [facility] ED on with worsening shortness of breath. Patient was diagnosed with acute congestive heart failure with reduced ejection fraction. Hospital stay complicated by development of upper GI bleed for which patient underwent emergency EGD Acute upper GI bleed ? Patient underwent EGD by Dr. Pearce on 04/19/2024. About 500 mL of bright red blood was aspirated from his stomach. There is also a lot of coffee ground bloody material in his stomach. 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 This lesion was treated with 6 of epinephrine followed by cautery and Hemospray. ? Patient hemoglobin down to 7 plan is for patient to be transfused with 1 unit PRBC. He should undergo repeat upper endoscopy but his family wants to see if he has any blood in his stool first. Continue PPI therapy. Charges/Coding Visit Charges Inpatient E&M: 51313 Init Hosp L3
[2024-07-14] MEDS: Pravastatin 40 MG Tablet PO (21:59)
[2024-07-14] MEDS: Latanoprost 0.005% 1 Bottle 1 DRP OPHTHALMIC (22:00)
[2024-07-14] MEDS: Gabapentin 400 MG Capsule PO (22:03)
[2024-07-14] MEDS: Insulin Glargine-YFGN 100 UNIT/ML Pen 8 UNIT SC (22:11)
[2024-07-14 22:32] LABS: Bedside Glucose 172 mg/dL (74-106)
[2024-07-15] VITALS (17 sets, daily range): BP systolic 140–158; BP diastolic 67–80; PULSE 50–55; RESP 16–18; TEMP 36.3–36.8; O2SAT 94–99
[2024-07-15] MEDS: Vancomycin HCl 1,250 MG in 0.9% Normal Saline (250mL Bag) 250 ML 167 MG IV (01:12)
[2024-07-15] MEDS: Piperacil/Tazobactam 3.375 GM in 0.9% Normal Saline (50mL MB+) 50 ML IV ×3 (06:03→21:14)
[2024-07-15 07:02] LABS: Absolute Neutrophil Count 2.8 X10^3/uL (2.0-7.7); Basophil# 0.04 X10^3/uL; Basophil% 0.9 % (0-1); Eosinophil# 0.12 X10^3/uL; Eosinophils% 2.7 % (0-5); Hematocrit 27.4 % (40-54); Lymphocyte % 20.5 % (19-41); Mean Corp Hgb Conc 29.2 g/dL (32-36); Mean Corpuscular Hgb 28.5 pg (27.0-32.0); Mean Corpuscular Volume 97.5 fL (80-94); Mean Platelet Vol. 10.3 fl (6.2-12.0); Monocyte# 0.52 X10^3/uL; Monocyte% 11.8 % (0-10); NRBC Flagged by Analyzer 0 % (0-5); Neutrophil # 2.79 X10^3/uL (2.7-7.7); Neutrophil % 63.6 % (47-70); POSITIVE MORPHOLOGY YES; Platelet Count 109 K/mm3 (150-450); RBC Distribution Width CV 19.5 % (11.6-14.6); Red Blood Count 2.81 M/mm3 (4.6-6.2); White Blood Count 4.4 K/mm3 (4.4-11.0)
[2024-07-15] MEDS: Albuterol 2.5 MG/3 ML VIAL.NEB. INHALATION ×4 (07:03→19:45)
[2024-07-15 07:12] LABS: Differential Indicated SCAN CRITERIA MET
[2024-07-15 07:27] LABS: Anion Gap 4 (5-15); BUN 26 mg/dL (7-18); BUN/Creat Ratio 15.9 RATIO (10-20); Calcium,Total 8.5 mg/dL (8.5-10.1); Chloride 102 mmol/L (98-107); Creatinine, Serum 1.64 mg/dL (0.70-1.30); EST Glomerular Filtration Rate 42 mL/min (>60); Est Glom Filt Rate - Afr Amer 51 mL/min (>60); Estimated Creatinine Clearance 34.51 ml/min; Glucose 86 mg/dL (74-106); Potassium 3.5 mmol/L (3.5-5.1); Sodium Level 138 mmol/L (136-145)
[2024-07-15] MEDS: Cholecalciferol (VIT D3) 25 MCG TABLET (1,000 UNITS) PO (07:50)
[2024-07-15] MEDS: Ferrous Sulfate 325 MG Tablet PO ×2 (07:50→17:31)
[2024-07-15] MEDS: hydrALAZINE 50 MG Tablet PO ×4 (07:50→20:44)
[2024-07-15] MEDS: Amiodarone 200 MG Tablet PO (07:50)
[2024-07-15] MEDS: Tamsulosin HCl 0.4 MG Capsule 0.8 MG PO (07:50)
[2024-07-15] MEDS: 0.9% Saline Lock 10 ML Syringe IV (07:50)
[2024-07-15] MEDS: Magnesium Chloride 64 MG Delay Rel.Tablet PO ×2 (07:50→20:46)
[2024-07-15] MEDS: Furosemide 40 MG Tablet PO ×2 (07:50→17:31)
[2024-07-15] MEDS: Menthol/Lanolin/Calamine/Znox 113 GM Tube 1 APPLIC TOPICAL ×2 (07:51→20:45)
[2024-07-15] MEDS: Senna/Docusate Sodium 1 Tablet 2 TABLET PO (07:53)
[2024-07-15 07:54] LABS: Differential Comment SCANNED
[2024-07-15 08:05] LABS: Bedside Glucose 94 mg/dL (74-106)
--- NOTE | 2024-07-15 09:50 | PN.HOSP_ITS ---
Reason for Visit Reason for Visit: Diagnoses Anemia, unspecified (07/11/24) Type 2 diabetes mellitus with hyperglycemia (07/11/24) Mixed hyperlipidemia (07/11/24) Essential (primary) hypertension (07/11/24) Other cardiomyopathies (07/11/24) Other ventricular tachycardia (07/11/24) Permanent atrial fibrillation (07/11/24) Unspecified atrial fibrillation (07/11/24) Unspecified systolic (congestive) heart failure (07/11/24) Heart failure, unspecified (07/11/24) Cellulitis of left lower limb (07/11/24) Pressure ulcer of sacral region, stage 3 (07/11/24) Chronic kidney disease, stage 3b (07/11/24) Benign prostatic hyperplasia without lower urinary tract symptoms (07/11/24) Abscess of prostate (07/11/24) Other malaise (07/11/24) Puncture wound without foreign body of left forearm, initial encounter (07/11/24) Subjective Subjective No new issues. Denies hematochezia nor melena. Objective Data Objective Data Vital Signs: Vital Signs Temp Pulse Resp BP Pulse Ox O2 Del Method O2 Flow Rate 36.4 C L 51 L 18 158/80 H 95 Nasal Cannula 2 07/15/24 07:45 07/15/24 07:50 07/15/24 07:45 07/15/24 07:45 07/15/24 08:32 07/15/24 08:32 07/15/24 08:32 Oxygen Flow Rate (L/min) 2 Oxygen Delivery Method Nasal Cannula Weight: 88.904 kg Body Mass Index (BMI) 25.8 Intake & Output: Intake and Output for Last 24 Hours 07/13/24 07/14/24 07/15/24 23:59 23:59 23:59 Intake Total 940 / 940 645 / 645 625 / 625 Output Total 850 / 850 1100 / 1100 950 / 950 Balance 90 / 90 -455 / -455 -325 / -325 Lab / Micro Data 07/15/24 06:11 07/15/24 06:11 Labs: Laboratory Results - last 24 hr 07/14/24 06:49: Sodium 140, Potassium 3.5, Chloride 103, Carbon Dioxide 32.0, Anion Gap 5, BUN 29 H, Creatinine 1.74 H, Estim Creat Clear Calc 32.53, Est GFR (MDRD) Af Amer 48 L, Est GFR (MDRD) Non-Af 39 L, BUN/Creatinine Ratio 16.7, Glucose 79, Calcium 8.6 07/14/24 11:58: POC Glucose 161 H 07/14/24 16:10: POC Glucose 169 H 07/14/24 22:10: POC Glucose 172 H 07/15/24 06:11: WBC 4.4, RBC 2.81 L, Hgb 8.0 L, Hct 27.4 L, MCV 97.5 H, MCH 28.5, MCHC 29.2 L, RDW Std Deviation 69.0 H, RDW Coeff of Rachelle 19.5 H, Plt Count 109 L, MPV 10.3, Immature Gran % (Auto) 0.500, Neut % (Auto) 63.6, Lymph % (Auto) 20.5, [place] % (Auto) 11.8 H, Eos % (Auto) 2.7, Baso % (Auto) 0.9, Absolute Neuts (auto) 2.8, Absolute Lymphs (auto) 0.90, Nucleated RBC % 0, Differential Comment SCANNED, Sodium 138, Potassium 3.5, Chloride 102, Carbon Dioxide 32.0, A nion Gap 4 L, BUN 26 H, Creatinine 1.64 H, Estim Creat Clear Calc 34.51, Est GFR (MDRD) Af Amer 51 L, Est GFR (MDRD) Non-Af 42 L, BUN/Creatinine Ratio 15.9, Glucose 86, Calcium 8.5, POC Glucose 94 Micro: Microbiology 07/12/24 01:27 Urine, Clean Catch Urine Culture - Final Gram negative karina Mixed Gram Positive Organisms Physical Exam Const alert and no apparent distress Constitutional Narrative: Hard of hearing. Up in the chair. HEENT head/scalp atraumatic and moist oral mucous membranes Resp normal respiratory effort, no retractions, no use of accessory muscles and clear to auscultation bilaterally Cardio regular rate, regular rhythm, S1 normal heart sound and S2 normal heart sound GI normal to inspection, nondistended, normoactive bowel sounds, soft to palpation, non-tender and non-distended Extremity normal to inspection, full ROM and no clubbing, cyanosis or edema Neuro oriented x3, CN's II-XII intact bilaterally, moves all extremities and no focal motor deficits Sensorium / Orientation: awake and alert Assessment & Plan Assessment/Plan (1) UTI (urinary tract infection): PLAN: Plan UTI * no prostatic abscess per . * UCx growing out GNR * on pip/tazo. dc vanc Anemia * received 1 units of PRBs. Heme positive stool. * Gi on consult. Plan for endoscopy * Patient did have endoscopy back in April of this year where his EGD showed grade 1 esophageal varices. Nonbleeding gastric ulcer with pigmented material that was treated with heater probe. * On IV pantoprazole. Chronic conditions * A-fib. Rate controlled. Continue with amiodarone. No anticoagulation given the anemia. * Diabetes mellitus type 2: Insulin-dependent. Continue with basal insulin as well as sliding scale insulin. * Glaucoma: Stable. Continue with latanoprost. * Hypertension: Fair control. Continue with hydralazine amlodipine. VTE prophylaxis: SCDs Discussed with the patient's at bedside. Charges/Coding Visit Charges Inpatient E&M: 38025 Subs Hosp L2
[2024-07-15] MEDS: Pantoprazole Sodium 40 MG in 0.9% Normal Saline (100mL MB+) 100 ML 330 MG IV ×2 (11:08→20:47)
[2024-07-15] MEDS: Insulin Lispro 100 UNIT/ML INSULN.PEN SC ×2 (11:51→17:31)
[2024-07-15 12:11] LABS: Bedside Glucose 159 mg/dL (74-106)
--- NOTE | 2024-07-15 14:25 | CASEMGMT ---
YONIS ELLIS into pt room, pt sitting up in chair with dtr at bedside. Pt states this is the best he has felt in a long time. Pt states he needs to get home because his needs him. Made pt aware that YONIS ELLIS is glad to see he is up and moving. Discussed importance of this. Pt aware that [facility] will be resumed per his request. Pt denies any further needs at this time.
--- NOTE | 2024-07-15 14:42 | CASEMGMT ---
Discharge Planning resumption order sent to [facility] via [facility]. Treva Snyder DC Planning Asst.
--- NOTE | 2024-07-15 18:05 | EX.PCM.PN.GI ---
Subjective Subjective Patient is not have any abdominal pain. He has not had any chest pain or shortness of breath. He is tolerating a diet. Objective Data Objective Data Vital Signs: Vital Signs Temp Pulse Resp BP Pulse Ox O2 Del Method O2 Flow Rate 98.1 F 50 L 18 140/68 H 99 Nasal Cannula 2 07/15/24 17:30 07/15/24 17:31 07/15/24 17:30 07/15/24 17:30 07/15/24 17:30 07/15/24 17:30 07/15/24 17:30 Oxygen Flow Rate (L/min) 2 Oxygen Delivery Method Nasal Cannula Weight: 196 lb Body Mass Index (BMI) 25.8 Intake & Output: Intake and Output for Last 24 Hours 07/13/24 07/14/24 07/15/24 23:59 23:59 23:59 Intake Total 940 / 940 645 / 645 785 / 785 Output Total 850 / 850 1100 / 1100 950 / 950 Balance 90 / 90 -455 / -455 -165 / -165 Lab / Micro Data 07/15/24 06:11 07/15/24 06:11 Labs: Laboratory Results - last 24 hr 07/14/24 22:10: POC Glucose 172 H 07/15/24 06:11: WBC 4.4, RBC 2.81 L, Hgb 8.0 L, Hct 27.4 L, MCV 97.5 H, MCH 28.5, MCHC 29.2 L, RDW Std Deviation 69.0 H, RDW Coeff of Rachelle 19.5 H, Plt Count 109 L, MPV 10.3, Immature Gran % (Auto) 0.500, Neut % (Auto) 63.6, Lymph % (Auto) 20.5, [place] % (Auto) 11.8 H, Eos % (Auto) 2.7, Baso % (Auto) 0.9, Absolute Neuts (auto) 2.8, Absolute Lymphs (auto) 0.90, Nucleated RBC % 0, Differential Comment SCANNED, Sodium 138, Potassium 3.5, Chloride 102, Carbon Dioxide 32.0, Anion Gap 4 L, BUN 26 H, Creatinine 1.64 H, Estim Creat Clear Calc 34.51, Est GFR (MDRD) Af Amer 51 L, Est GFR (MDRD) Non-Af 42 L, BUN/Creatinine Ratio 15.9, Glucose 86, Calcium 8.5, POC Glucose 94 07/15/24 11:50: POC Glucose 159 H Micro: Microbiology 07/15/24 10:37 Stool Stool Occult Blood (DIONNE) - Final Occult Blood Positive 07/12/24 01:27 Urine, Clean Catch Urine Culture - Final Gram negative karina Mixed Gram Positive Organisms Physical Exam Const alert, oriented x3, no apparent distress and well nourished; Negative for average body habitus or healthy appearing General Appearance: cooperative and well developed HEENT normocephalic, head/scalp atraumatic, hearing grossly normal bilaterally, moist oral mucous membranes, oropharynx normal and gingiva normal Eyes PERRL, EOMs intact bilaterally and conjunctivae normal Neck no lymphadenopathy, supple and no JVD Lymph Lymphatic: no lymphadenopathy noted and no lymphedema noted Resp normal respiratory effort, normal air movement, no retractions, no use of accessory muscles and clear to auscultation bilaterally Auscultation: crackles Cardio regular rate, regular rhythm, S1 normal heart sound, S2 normal heart sound, no rub, no gallops and no clicks Cardio Narrative: 4 out of 6 systolic murmur loudest at right upper sternal border Peripheral Pulses: pulses 2+ throughout GI normal to inspection, nondistended, normoactive bowel sounds, soft to palpation, non-tender and non-distended Extremity normal capillary refill, no clubbing, cyanosis or edema and no calf tenderness General Extremity: no tenderness to palpation of joints or extremities Skin Skin Narrative: has some erythema of the lower extremities, over the shins, with skin very dry and with some scab formation. General Skin Exam: no breakdown and turgor normal Neuro oriented x3, CN's II-XII intact bilaterally, moves all extremities, no focal motor deficits, no sensory deficits noted and deep tendon reflexes 2+ bilaterally Neuro Narrative: Significant generalized weakness with no focal deficits Speech: speech normal Motor Exam: strength 5/5 throughout and general weakness Psych thought process normal, cooperative and affect normal Appearance: appropriate Assessment & Plan Assessment/Plan (1) Nonsustained ventricular tachycardia: (2) Non-ischemic cardiomyopathy: (3) Atrial fibrillation: QUALIFIERS: Atrial fibrillation type: permanent Qualified Code(s): I48.21 - Permanent atrial fibrillation (4) CHF exacerbation: QUALIFIERS: Heart failure type: unspecified Qualified Code(s): I50.9 - Heart failure, unspecified PLAN: Plan Patient is an 89-year-old male who presented to [facility] ED on with worsening shortness of breath. Patient was diagnosed with acute congestive heart failure with reduced ejection fraction. Hospital stay complicated by development of upper GI bleed for which patient underwent emergency EGD Acute upper GI bleed ? Patient underwent EGD by Dr. Pearce on 04/19/2024. About 500 mL of bright red blood was aspirated from his stomach. There is also a lot of coffee ground bloody material in his stomach. 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 This lesion was treated with 6 of epinephrine followed by cautery and Hemospray. ? Patient hemoglobin down to 7 plan is for patient to be transfused with 1 unit PRBC. He should undergo repeat upper endoscopy but his family wants to see if he has any blood in his stool first. Continue PPI therapy. -After reviewing the patient's record more thoroughly he probably should undergo on a repeat upper endoscopy and colonoscopy as he was identified of having colon cancer in 2016. I did not see any documentation where he had a repeat colonoscopy over the last few years. Plan for EGD and colonoscopy. Charges/Coding Visit Charges Inpatient E&M: [address] [facility] Hosp L3
[2024-07-15] MEDS: Bisacodyl 5 MG Tablet 20 MG PO (20:44)
[2024-07-15] MEDS: Insulin Glargine-YFGN 100 UNIT/ML Pen 8 UNIT SC (20:45)
[2024-07-15] MEDS: Gabapentin 400 MG Capsule PO (20:46)
[2024-07-15] MEDS: amLODIPine 2.5 MG Tablet PO (20:46)
[2024-07-15] MEDS: Latanoprost 0.005% 1 Bottle 1 DRP OPHTHALMIC (20:47)
[2024-07-15] MEDS: Pravastatin 40 MG Tablet PO (20:47)
[2024-07-15] MEDS: Polyethylene Glycol 3350 BOWEL PREP PO (21:13)
[2024-07-15 21:26] LABS: Bedside Glucose 150 mg/dL (74-106)
[2024-07-15] MEDS: Ondansetron 4 MG/2 ML Vial IV (22:18)
[2024-07-15 23:42] LABS: Bedside Glucose 175 mg/dL (74-106)
[2024-07-16] VITALS (19 sets, daily range): BP systolic 95–142; BP diastolic 54–74; PULSE 50–55; RESP 14–18; TEMP 36.1–36.7; O2SAT 91–100; BMI 25.8
--- NOTE | 2024-07-16 05:00 | EKG12_ITS ---
Test Reason : AM EKG Blood Pressure : / mmHG Vent. Rate : 053 BPM Atrial Rate : 300 BPM P-R Int : 000 ms QRS Dur : 164 ms QT Int : 656 ms P-R-T Axes : 000 -78 092 degrees QTc Int : 615 ms AFIB/FLUTTER WITH Ventricular-paced rhythm with occasional Premature ventricular complexes Abnormal ECG Confirmed by Goyo Gonzalez ([id number]), editor managing newspaper MALACHI DUNN ([id number]) on 07/17/2024 6:37:04 AM Referred By: OBDULIO Confirmed By:Goyo Gonzalez
[2024-07-16] MEDS: Piperacil/Tazobactam 3.375 GM in 0.9% Normal Saline (50mL MB+) 50 ML IV (06:36)
[2024-07-16] MEDS: Dextrose 10%-Water 250 ML 999 ML IV (06:49)
[2024-07-16 06:54] LABS: Absolute Lymphocyte Count 0.53 X10^3/uL (0.83-4.51); Absolute Neutrophil Count 3.4 X10^3/uL (2.0-7.7); Basophil# 0.05 X10^3/uL; Basophil% 1.1 % (0-1); Eosinophil# 0.14 X10^3/uL; Eosinophils% 2.9 % (0-5); Hematocrit 28.9 % (40-54); Hemoglobin 8.3 g/dL (13.0-16.5); Lymphocyte # 0.53 X10^3/ul (0.83-4.51); Lymphocyte % 11.1 % (19-41); Mean Corp Hgb Conc 28.7 g/dL (32-36); Mean Corpuscular Hgb 28.4 pg (27.0-32.0); Monocyte# 0.63 X10^3/uL; Monocyte% 13.2 % (0-10); NRBC Flagged by Analyzer 0 % (0-5); Neutrophil % 71.5 % (47-70); POSITIVE DIFFERENTIAL YES; POSITIVE MORPHOLOGY YES; Platelet Count 114 K/mm3 (150-450); RBC Distribution Width CV 19.7 % (11.6-14.6); Red Blood Count 2.92 M/mm3 (4.6-6.2); White Blood Count 4.8 K/mm3 (4.4-11.0)
[2024-07-16 07:06] LABS: Differential Indicated SCAN CRITERIA MET
[2024-07-16 07:15] LABS: International Normalized Ratio 1.3
[2024-07-16 07:16] LABS: Partial Thromboplast Time 29.5 Seconds (24.1-36.2)
[2024-07-16] MEDS: Albuterol 2.5 MG/3 ML VIAL.NEB. INHALATION ×4 (07:46→20:22)
[2024-07-16 07:47] LABS: Bedside Glucose 115 mg/dL (74-106)
[2024-07-16 07:47] LABS: Bedside Glucose 43 mg/dL (74-106)
[2024-07-16 08:01] LABS: AST(SGOT) 27 U/L (15-37); Alanine Aminotransfer ALT/SGPT 20 U/L (16-61); Albumin, Serum 2.1 g/dL (3.2-5.0); Alkaline Phosphatase 54 U/L (45-117); Bilirubin, Direct 0.25 mg/dL (0.00-0.30); Globulin 5.5 g/dL (2.2-4.2); Protein, Total 7.6 g/dL (6.4-8.2)
[2024-07-16 08:02] LABS: Anion Gap 2 (5-15); BUN 23 mg/dL (7-18); BUN/Creat Ratio 13.6 RATIO (10-20); Calcium,Total 8.9 mg/dL (8.5-10.1); Chloride 107 mmol/L (98-107); Creatinine, Serum 1.69 mg/dL (0.70-1.30); EST Glomerular Filtration Rate 41 mL/min (>60); Est Glom Filt Rate - Afr Amer 49 mL/min (>60); Estimated Creatinine Clearance 33.49 ml/min; Glucose 43 mg/dL (74-106); Potassium 3.4 mmol/L (3.5-5.1); Sodium Level 144 mmol/L (136-145)
[2024-07-16 08:07] LABS: Hemoglobin A1c 5.9 % (3.8-5.6)
--- NOTE | 2024-07-16 08:54 | PN.HOSP_ITS ---
Reason for Visit Reason for Visit: Diagnoses Anemia, unspecified (07/11/24) Type 2 diabetes mellitus with hyperglycemia (07/11/24) Mixed hyperlipidemia (07/11/24) Essential (primary) hypertension (07/11/24) Other cardiomyopathies (07/11/24) Other ventricular tachycardia (07/11/24) Permanent atrial fibrillation (07/11/24) Unspecified atrial fibrillation (07/11/24) Unspecified systolic (congestive) heart failure (07/11/24) Heart failure, unspecified (07/11/24) Cellulitis of left lower limb (07/11/24) Pressure ulcer of sacral region, stage 3 (07/11/24) Chronic kidney disease, stage 3b (07/11/24) Urinary tract infection, site not specified (07/11/24) Benign prostatic hyperplasia without lower urinary tract symptoms (07/11/24) Abscess of prostate (07/11/24) Other malaise (07/11/24) Puncture wound without foreign body of left forearm, initial encounter (07/11/24) Subjective Subjective Feels good. No events overnight. Tolerated EGD/colonoscopy. Objective Data Objective Data Vital Signs: Vital Signs Temp Pulse Resp BP Pulse Ox O2 Del Method O2 Flow Rate 36.5 C L 52 L 18 135/73 H 91 Nasal Cannula 2 07/16/24 03:17 07/16/24 07:48 07/16/24 07:48 07/16/24 03:17 07/16/24 07:48 07/16/24 07:48 07/16/24 07:48 Oxygen Flow Rate (L/min) 2 Oxygen Delivery Method Nasal Cannula Weight: 88.904 kg Body Mass Index (BMI) 25.8 Intake & Output: Intake and Output for Last 24 Hours 07/14/24 07/15/24 07/16/24 23:59 23:59 23:59 Intake Total 645 / 645 945 / 3145 2500 / 2500 Output Total 1100 / 1100 950 / 950 Balance -455 / -455 -5 / 2195 2500 / 2500 Lab / Micro Data 07/16/24 06:27 07/16/24 06:27 Labs: Laboratory Results - last 24 hr 07/15/24 11:50: POC Glucose 159 H 07/15/24 16:35: POC Glucose 150 H 07/15/24 20:42: POC Glucose 175 H 07/16/24 06:27: WBC 4.8, RBC 2.92 L, Hgb 8.3 L, Hct 28.9 L, MCV 99.0 H, MCH 28.4, MCHC 28.7 L, RDW Std Deviation 71.0 H, RDW Coeff of Rachelle 19.7 H, Plt Count 114 L, MPV 10.0, Immature Gran % (Auto) 0.200, Neut % (Auto) 71.5 H, Lymph % (Auto) 11.1 L, Creek % (Auto) 13.2 H, Eos % (Auto) 2.9, Baso % (Auto) 1.1 H, Absolute Neuts (auto) 3.4, Absolute Lymphs (auto) 0.53 L, Nucleated RBC % 0, PT 16.0 H, INR 1.3, APTT 29.5, Sodium 144, Potassium 3.4 L, Chloride 107, Carbon Dioxide 35.0 H, Anion Gap 2 L, BUN 23 H, Creatinine 1.69 H, Estim Creat Clear Calc 33.49, Est GFR (MDRD) Af Amer 49 L, Est GFR (MDRD) Non-Af 41 L, BUN/Creatinine Ratio 13.6, Glucose 43 L*, Hemoglobin A1c 5.9 H, Calcium 8.9, Total Bilirubin 0.50, Direct Bilirubin 0.25, AST 27, ALT 20, Alkaline Phosphatase 54, Total Protein 7.6, Albumin 2.1 L, Globulin 5.5 H 07/16/24 06:38: POC Glucose 43 L* 07/16/24 07:05: POC Glucose 115 H Micro: Microbiology 07/15/24 10:37 Stool Stool Occult Blood (DIONNE) - Final Occult Blood Positive 07/12/24 01:27 Urine, Clean Catch Urine Culture - Final Gram negative karina Mixed Gram Positive Organisms Physical Exam Const alert and no apparent distress HEENT head/scalp atraumatic and moist oral mucous membranes Resp normal respiratory effort, no retractions, no use of accessory muscles and clear to auscultation bilaterally Cardio regular rate, regular rhythm, S1 normal heart sound and S2 normal heart sound GI normal to inspection, nondistended, normoactive bowel sounds, soft to palpation, non-tender and non-distended Neuro Sensorium / Orientation: awake and alert Assessment & Plan Assessment/Plan (1) UTI (urinary tract infection): PLAN: Plan UTI * no prostatic abscess per . * UCx growing out only less than 1000 GNR. However urine culture was performed on the and patient actually had received antibiotics on the , but before the culture was performed. Previously, patient has had E. coli that was pansensitive. Will de-escalate antibiotics from pip-tazo to ceftriaxone. Anemia * received 1 units of PRBs. Heme positive stool. * Gi on consult. EGD on the showed normal esophagus, medium size hiatal hernia, 2 bleeding angiodysplastic lesions in the stomach that were treated with heater probe. Single bleeding angiodysplastic lesion in the treated with heater probe. Colonoscopy showed poor prep. Diverticulosis in the rectosigmoid colon. Nonbleeding external and internal hemorrhoids. * Patient did have endoscopy back in April of this year where his EGD showed grade 1 esophageal varices. Nonbleeding gastric ulcer with pigmented material that was treated with heater probe. * On IV pantoprazole. Chronic conditions * A-fib. Rate controlled. Continue with amiodarone. No anticoagulation given the anemia. * Diabetes mellitus type 2: Insulin-dependent. Hypoglycemia down to 43 on the . Patient received dextrose this morning. Will discontinue the glargine for now. * Glaucoma: Stable. Continue with latanoprost. * Hypertension: Fair control. Continue with hydralazine amlodipine. VTE prophylaxis: SCDs Disposition: Will monitor the patient overnight and if he remains stable then he can likely be discharged on the . Case discussed with the patient's as well as other family members at the bedside. Charges/Coding Visit Charges Inpatient E&M: 36279 Subs Hosp L2
[2024-07-16 09:02] LABS: Anisocytosis 2+; Differential Comment SCANNED; Macrocytosis 1+; Microcytosis 1+
[2024-07-16] MEDS: Pantoprazole Sodium 40 MG in 0.9% Normal Saline (100mL MB+) 100 ML 330 MG IV ×2 (10:10→20:23)
[2024-07-16] MEDS: Amiodarone 200 MG Tablet PO (10:11)
[2024-07-16 11:11] LABS: Bedside Glucose 73 mg/dL (74-106)
--- NOTE | 2024-07-16 11:13 | NURSING ---
pts bs [address] cabrera text and remains npo. new order to hang d5.45.
[2024-07-16] MEDS: Dext 5%-0.45% NS 1,000 ML 100 ML IV (11:16)
--- NOTE | 2024-07-16 12:22 | PRE.ANES_ITS ---
ASA Classification* ASA Classification ASA Classification: 3 Assessment & Plan Anesthesia* Anesthesia Assessment Anesthesia Assessment: Discussed sedation and/or anesthesia options, risks, benefits, and alternatives with patient/parents/legal guardian/POA. Questions invited. The patient/parents/legal guardian/POA seems to understand and agrees to proceed with anesthesia plan. Reviewed the physical assessment, medical history, allergy history and patient home medications list prior to surgery/procedure/anesthetic and documented any changes. Performed airway and anesthesia risk assessments. Anesthesia Type Anesthesia Type: MAC History Source History Obtained from:: Patient and Chart Anesthesia Focused Assessment* Temperature: 97.4 F Pulse Rate: 52 Blood Pressure: 132/74 Respiratory Rate: 18 Pulse Ox: 94 Oxygen Delivery Method: Nasal Cannula (Patient is on 2 L of oxygen at home.) Airway Assessment Mouth opens: 2 cm Mallampati Score: IV Teeth Condition: Full (Patient has full top and bottom dentures. They are currently out.) Neck Range of motion (ROM): Limited ROM (Decreased extension) Pertinent Findings EKG Pertinent Findings:: July 16, 2024. Ventricular paced rhythm. Occasional PVCs. Focused Labs Anesthesia Preop lab: CBC WBC 4.8 K/mm3 (4.4-11.0) 07/16/24 06:27 RBC 2.92 M/mm3 (4.6-6.2) L 07/16/24 06:27 Hgb 8.3 g/dL (13.0-16.5) L 07/16/24 06:27 Hct 28.9 % (40-54) L 07/16/24 06:27 Plt Count 114 K/mm3 (150-450) L 07/16/24 06:27 CHEMISTRY Potassium 3.4 mmol/L (3.5-5.1) L 07/16/24 06:27 Sodium 144 mmol/L (136-145) 07/16/24 06:27 Magnesium 2.1 mg/dL (1.6-2.6) 07/12/24 05:49 Phosphorus 3.5 mg/dL (2.5-4.9) 07/12/24 05:49 BUN 23 mg/dL (7-18) H 07/16/24 06:27 Creatinine 1.69 mg/dL (0.70-1.30) H 07/16/24 06:27 Glucose 43 mg/dL (74-106) L* 07/16/24 06:27 POC Glucose 73 mg/dL (74-106) L 07/16/24 10:53 TSH 2.13 uIU/mL (0.358-3.74) 03/19/24 06:50 COAG PT 16.0 SECONDS (11.7-14.9) H 07/16/24 06:27 Pre-Assessment Diagnosis/Proposed Procedure Planned Operative Procedure(s): EGD and colonoscopy. 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 03/2024-05/21/24 CHF Any Problems With Anesthesia No 07/16/24 10:03 Cholinesterase deficiency No 07/16/24 10:03 You/Your Family Experience No 07/16/24 10:03 fever (hyperthermia) with Relationship Recent Exposure to Contagious No 07/16/24 10:03 Disease Does patient have nerve No 07/16/24 10:03 stimulator Patient instructed to have No 07/16/24 10:03 device shut off --Does patient have Pacemaker Yes 07/16/24 10:02 or ICD? When Was Last Pacemaker Check pacemaker 07/16/24 10:03 QUESTION #4 FULL TEXT: You/Your Family Experience fever (hyperthermia) with Anesthesia Last Oral Intake Last Oral intake: Last Oral Intake NPO since 00:00 07/16/24 10:02 Meds taken in AM with sips of Yes 07/16/24 10:02 water? Meds patient instructed to amiodorone 1000 07/16/24 10:02 take am of surgery PONV PONV - liquor establishment manager: PONV - liquor establishment manager Female HX of Motion Sickness HX of N/V After Surgery Non-Smoker Duration of Surgery greater than 60 minutes Number of Risk Factors PONV Score Height & Weight Height & Weight: Anesthesia: Height & Weight Height 6 ft 1 in 07/16/24 10:02 Weight: 88.904 kg 07/16/24 10:02 Body Mass Index (BMI) 25.8 07/16/24 10:02 Respiratory Assessment Respiratory Assessment - liquor establishment manager: Respiratory Tract Infection Hx - liquor establishment manager Hx Respiratory Tract Infection No 07/16/24 10:03 STOP Sleep Apnea STOP Sleep Apnea - liquor establishment manager: STOP Sleep Apnea - liquor establishment manager Hx Hypertension Yes 07/12/24 08:24 Hx Sleep Apnea No 07/12/24 00:27 CPAP No 07/01/24 12:21 BIPAP Do you snore loudly (louder No 07/12/24 00:27 than talking or can be heard Do you often feel tired/ No 07/12/24 00:27 fatigued/ sleepy during daytime? Has anyone observed you stop No 07/12/24 00:27 breathing during sleep? STOP Results Negative 07/12/24 00:27 QUESTION #5 FULL TEXT : Do you snore loudly (louder than talking or can be heard through closed doors)? Tobacco Use History Tobacco Use History - liquor establishment manager: Tobacco Use History - liquor establishment manager Tobacco Use Non-smoker 06/29/19 11:59 Smoking Status Former smoker 07/12/24 00:27 Hx Tobacco Use No 07/12/24 00:27 Years Smoking Packs Smoked per Day Smoking Cessation Date was No - quit smoking greater 07/12/24 00:27 within the last 15 years than 15 years ago Hx Smoking Cessation Date 11/18/55 07/12/24 00:27 Hx Smoking Cessation No 07/12/24 00:27 Counseling Hematologic Medial History Hematologic Hx - liquor establishment manager: Hematologic Medical Hx - housekeeping aide Hx of Blood Transfusion Yes 07/12/24 00:27 Hx of Transfusion in last 3 Yes 07/12/24 00:27 Months Date of Last Transfusion (if April 2024 07/12/24 00:27 within last 3 months) Ever experience any problems No 07/12/24 00:27 with transfusion(s)? Specify any problems Hx of Preganancy in last 3 N/A 07/12/24 00:27 Months Nurse Filling Out Transfusion LSMITH 07/12/24 00:27 & Questions: Date: 07/12/24 07/12/24 00:27 Time: 07/12/24 00:27 Patient unable to answer at this time (ie. confused, unrespo /Reproduction History /Reproductive History - liquor establishment manager: /Reproductive Hx- liquor establishment manager Hx Now No 07/16/24 10:03 Gestational Age (in weeks): EDC: Hx Hx Para Hx Section SAB No 07/16/24 10:03 Active Medications Active Medications: Current Medications Generic Name Dose Route Start Last Admin Trade Name Zack PRN Reason Stop Dose Admin Acetaminophen 650 mg 07/12/24 00:18 07/12/24 01:19 Acetaminophen 325 Mg Tablet PO 650 mg Q6H PRN PRN Administration Pain 1-10 Or Fever>100.7 Albuterol Sulfate 2.5 mg 07/13/24 19:45 07/16/24 10:47 Albuterol 2.5 Mg/3 Ml Vial.Neb. INHALATION 2.5 mg Q4HWA.RT IRAIS Administration Amiodarone HCl 200 mg 07/12/24 10:00 07/16/24 10:11 Amiodarone 200 Mg Tablet PO 200 mg DAILY IRAIS Administration Amlodipine Besylate 2.5 mg 07/12/24 22:00 07/15/24 20:46 Amlodipine 2.5 Mg Tablet PO 2.5 mg HS IRAIS Administration Protocol Calamine/Phenol 1 applic 07/13/24 10:00 07/16/24 10:36 Menthol/Lanolin/Calamine/Znox 113 Gm Tube TOPICAL Not Given BID [facility] Protocol Cholecalciferol 25 mcg 07/12/24 10:00 07/16/24 07:46 Cholecalciferol (Vit D3) 25 Mcg Tablet (1,000 Units) PO Not Given DAILY IRAIS Ferrous Sulfate 325 mg 07/12/24 08:00 07/16/24 07:45 Ferrous Sulfate 325 Mg Tablet PO Not Given BIDCM IRAIS Furosemide 40 mg 07/12/24 08:00 07/16/24 07:45 Furosemide 40 Mg Tablet PO Not Given BIDCM IRAIS Protocol Gabapentin 400 mg 07/12/24 22:00 07/15/24 20:46 Gabapentin 400 Mg Capsule PO 400 mg QHS IRAIS Administration Glucagon 1 mg 07/12/24 00:18 Glucagon 1 Mg/Ml Syringe IM X1 PRN HYPOGLYCEMIA Protocol Hydralazine HCl 50 mg 07/12/24 10:00 07/16/24 07:45 Hydralazine 50 Mg Tablet PO Not Given 4X/DAY IRAIS Protocol Dextrose 250 mls @ 0 mls/hr 07/12/24 00:18 07/16/24 07:05 Dextrose 10%-Water IV Infused .Q0M PRN Infusion HYPOGLYCEMIA Protocol As Directed Pantoprazole Sodium 40 mg/ 110 mls @ 330 mls/hr 07/12/24 22:00 07/16/24 10:37 Sodium Chloride IV Infused Q12 [facility] Infusion Ceftriaxone Sodium 1 gm in 50 mls @ 100 mls/hr 07/16/24 14:30 Rocephin IV Q24 IRAIS Dextrose/Sodium Chloride 1,000 mls @ 100 mls/hr 07/16/24 11:15 07/16/24 11:16 IV 100 mls/hr .Q10H IRAIS Administration Insulin Human Lispro 0 unit 07/12/24 07:00 07/16/24 11:16 Insulin Lispro 100 Unit/Ml Insuln.Pen SC Not Given TIDAC [facility] Protocol Latanoprost 1 drp 07/12/24 22:00 07/15/24 20:47 Latanoprost 0.005% 1 Bottle OPHTHALMIC 1 drp QHS IRAIS Administration Magnesium Chloride 64 mg 07/12/24 10:00 07/16/24 07:45 Magnesium Chloride 64 Mg Delay Rel.Tablet PO Not Given BID [facility] Ondansetron HCl 4 mg 07/12/24 00:18 07/15/24 22:18 Ondansetron 4 Mg/2 Ml Vial IV 4 mg Q8H PRN PRN Administration NAUSEA/VOMITING Pravastatin Sodium 40 mg 07/12/24 22:00 07/15/24 20:47 Pravastatin 40 Mg Tablet PO 40 mg QHS IRAIS Administration Senna/Docusate Sodium 2 tablet 07/12/24 00:18 07/15/24 07:53 Senna/Docusate Sodium 1 Tablet PO 2 tablet BID PRN PRN Administration Constipation Sodium Chloride 10 - 40 ml 07/12/24 00:21 07/15/24 07:50 0.9% Saline Lock 10 Ml Syringe IV 10 ml UD PRN Administration SALINE FLUSH Tamsulosin HCl 0.8 mg 07/12/24 10:00 07/16/24 10:37 Tamsulosin Hcl 0.4 Mg Capsule PO Not Given DAILY [facility] PFSH Medical History Prostate CA Penetrating wound of left forearm History of echocardiogram History of atrial fibrillation Wears hearing aid Wears glasses Wears dentures Cancer Depression Anxiety Abrasion Insulin dependent diabetes mellitus Arthritis Walker as ambulation aid Prostate disease Indwelling urethral catheter present History of renal disease Low iron Anemia High cholesterol Easy bruising Back pain Dietary restriction Difficulty swallowing Esophageal varices History of ulceration Former smoker On home oxygen therapy Shortness of breath on exertion History of edema Hypertension History of rheumatic fever History of CHF (congestive heart failure) Cardiology follow-up encounter Presence of cardiac pacemaker Atrial fibrillation with slow ventricular response Peripheral vascular disease Lumbar stenosis Gout DDD (degenerative disc disease) Carotid artery stenosis Chronic diastolic (congestive) heart failure Non-rheumatic aortic stenosis Atherosclerosis 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 Secondary pulmonary arterial hypertension Essential (primary) hypertension Left bundle branch block Stool guaiac positive Iron deficiency anemia Personal history of colonic polyps History of malignant neoplasm of colon Chronic kidney disease, stage III (moderate) Thoracic aortic aneurysm without rupture Colon cancer, ascending Dyslipidemia Type II diabetes mellitus Home Medications ?Medication ?Instructions ?Recorded ?Last Taken ?Type pravastatin 40 mg tablet 40 mg PO QHS cholesterol 05/14/16 06/30/24 History cholecalciferol (vitamin D3) 25 1,000 unit PO DAILY vitamin 07/16/16 06/30/24 History mcg (1,000 unit) tablet cyanocobalamin (vitamin B-12) 1,000 mcg PO DAILY supplement 07/16/16 06/30/24 History 1,000 mcg tablet sitagliptin phosphate 50 mg tablet 50 mg PO DAILY diabetes 06/25/19 06/30/24 History docusate sodium 100 mg capsule 100 mg PO BID PRN sool softener 09/11/19 06/30/24 History (Colace) ferrous sulfate 325 mg (65 mg 325 mg PO BID iron supplement 09/11/19 06/30/24 History iron) tablet (Feosol) folic acid 400 mcg tablet 800 mcg PO DAILY vitamin 09/11/19 06/30/24 History insulin glargine 100 unit/mL (3 8 unit subcut QHS diabetes 09/11/19 06/30/24 History mL) subcutaneous pen blood sugar diagnostic (True 03/18/24 Unknown History Metrix Glucose Test Strip) gabapentin 400 mg capsule 400 mg PO QHS nerve pain 03/18/24 06/30/24 History latanoprost 0.005 % eye drops 1 drp ophthalmic (eye) QHS eye 03/18/24 06/30/24 History health pen needle, diabetic 31 gauge x 03/18/24 Unknown History 01/31 (Droplet Pen Needle) potassium chloride 20 mEq 20 meq PO DAILY supplement 03/18/24 06/30/24 History tablet,extended release(part/cryst) furosemide 40 mg tablet (Lasix) 40 mg PO BIDCM Edema #120 tabs 03/20/24 06/30/24 Rx hydralazine 50 mg tablet 50 mg PO 4X/DAY BP 04/02/24 06/30/24 History pantoprazole 40 mg tablet,delayed 40 mg PO DAILY 30 days #30 tabs 05/05/24 07/01/24 Rx release finasteride 5 mg tablet 5 mg PO DAILY 30 days #30 tabs 05/22/24 06/30/24 Rx magnesium chloride 64 mg 64 mg PO BID Supplement #60 tabs 05/22/24 06/30/24 Rx (magnesium chloride) tablet,delayed release (Mag 64) amlodipine 5 mg tablet 2.5 mg (1/2 x 5 mg) PO HS 30 days 05/27/24 06/30/24 Rx #15 tabs amiodarone 200 mg tablet 200 mg PO DAILY #90 tabs 06/15/24 07/16/24 Rx tamsulosin 0.4 mg capsule (Flomax) 0.8 mg PO DAILY 07/11/24 Unknown History torsemide 20 mg tablet 20 mg PO DAILY 07/11/24 Unknown History Allergy/AdvReac Type Severity Reaction Status Date / Time Milk Containing Products AdvReac NEEDS Verified 07/11/24 19:35 (Dairy) (Milk Containing FOLLOW-UP Products) quinapril (From Accupril) AdvReac Other Verified 07/11/24 19:35 Family History Mother Colon cancer Heart disease Hypertension CAD (coronary artery disease) Father Cancer prostate CVA (cerebral vascular accident) CAD (coronary artery disease) Brother CAD (coronary artery disease) CABG Brother CAD (coronary artery disease) CABG Surgical History S/P TURP (status post transurethral resection of prostate) History of esophagogastroduodenoscopy (EGD) History of left heart catheterization (07/2001) H/O colectomy S/P colonoscopy S/P cataract extraction Social History household members: spouse Smoking Status: Former smoker how long ago did patient quit smokin years ago alcohol intake: never substance use type: does not use Review of Systems (Anesthesia) ROS Narrative System reviewed and no additional complaints, except as documented.
[2024-07-16 12:55] LABS: Bedside Glucose 85 mg/dL (74-106)
--- NOTE | 2024-07-16 13:17 | POSTOPAN2_ITS ---
Anesthesia Postop Eval I Sum Postop Eval Completion status Anesthesia document: Postop Eval 1 completed: Yes Anesthesia Postop Eval I Summary Anesthesia Postop Eval I Summary: Anesthesia Postop Eval I: Assessment Summary Airway patent Yes 07/16/24 13:17 OPERATIONS [email or web address] Spontaneous unlabored Yes 07/16/24 13:17 OPERATIONS [email or web address].MDOT respirations Mental status Awake,Calm 07/16/24 13:17 OPERATIONS CHIEF.MDOT nausea No 07/16/24 13:17 OPERATIONS [email or web address].MDOT Vomiting No 07/16/24 13:17 OPERATIONS [email or web address].MDOT Anesthesia Postop Eval I: Fluid Summary Crystalloid volume administer 400 07/16/24 13:17 OPERATIONS CHIEF.MDOT (ml) Colloids volume administered ( ml) Blood Product volume administered (ml) Total IV fluid infused 400 07/16/24 13:17 OPERATIONS [email or web address].OT Anesthesia Postop Eval I: Summary Notes Anesthesia Complication No 07/16/24 13:17 OPERATIONS [email or web address].MDOT Anesthesia Complication Comment: Post-operative progress note Anesthesia: Postop Eval II Evaluation Mental status: Awake and Calm Pain Level: 0 nausea: No Vomiting: No Complications Anesthesia Complication: No
--- NOTE | 2024-07-16 13:17 | PCM.POST.ANE ---
Anesthesia: Postop Eval I Current Vital Signs Temperature: 97 F Pulse Rate: 50 Blood Pressure: 95/57 Respiratory Rate: 14 Pulse Ox: 92 Oxygen Delivery Method: Nasal Cannula Oxygen Flow Rate (L/min): 4 Assessment Airway patent: Yes Spontaneous unlabored respirations: Yes Mental status: Awake and Calm nausea: No Vomiting: No Anesthesia Complication: No Fluid Hydration Crystalloid volume administer (ml): 400 Total IV fluid infused: 400 Progress Note Anesthesia document: Postop Eval 1 completed: Yes
--- NOTE | 2024-07-16 13:17 | PCM.POSTANE2 ---
Anesthesia Postop Eval I Sum Postop Eval Completion status Anesthesia document: Postop Eval 1 completed: Yes Anesthesia Postop Eval I Summary Anesthesia Postop Eval I Summary: Anesthesia Postop Eval I: Assessment Summary Airway patent Yes 07/16/24 13:17 [email or web address] [email or web address] Spontaneous unlabored Yes 07/16/24 13:17 BATHHOUSE [email or web address] respirations Mental status Awake,Calm 07/16/24 13:17 [email or web address] [email or web address] nausea No 07/16/24 13:17 BATHHOUSE [email or web address] Vomiting No 07/16/24 13:17 BATHHOUSE [email or web address] Anesthesia Postop Eval I: Fluid Summary Crystalloid volume administer 400 07/16/24 13:17 BATHHOUSE [email or web address].MDOT (ml) Colloids volume administered ( ml) Blood Product volume administered (ml) Total IV fluid infused 400 07/16/24 13:17 BATHHOUSE [email or web address].OT Anesthesia Postop Eval I: Summary Notes Anesthesia Complication No 07/16/24 13:17 BATHHOUSE [email or web address] Anesthesia Complication Comment: Post-operative progress note Anesthesia: Postop Eval II Evaluation Mental status: Awake and Calm Pain Level: 0 nausea: No Vomiting: No Complications Anesthesia Complication: No
--- NOTE | 2024-07-16 13:22 | OP.EGD_ITS ---
Patient Name: Joel Talbert Procedure Date: 07/16/2024 12:33 PM Date of : 1935 Age: 89 Procedure: Upper GI endoscopy Indications: Iron deficiency anemia Providers: Thomas Pearce DO Medicines: Monitored Anesthesia Care Patient Profile: This is an 89 year old male. Refer to note in patient chart for documentation of history and physical. Complications: No immediate complications. Procedure: Pre-Anesthesia Assessment: - Prior to the procedure, a History and Physical was performed, and patient medications and allergies were reviewed. The patient is competent. The risks and benefits of the procedure and the sedation options and risks were discussed with the patient. All questions were answered and informed consent was obtained. Patient identification and proposed procedure were verified by the physician in the pre-procedure area. Mental Status Examination: alert and oriented. Airway Examination: normal oropharyngeal airway and neck mobility. Respiratory Examination: clear to auscultation. CV Examination: normal. Prophylactic Antibiotics: The patient does not require prophylactic antibiotics. Prior Anticoagulants: The patient has taken no anticoagulant or antiplatelet agents. ASA Grade Assessment: III - A patient with severe systemic disease. After reviewing the risks and benefits, the patient was deemed in satisfactory condition to undergo the procedure. The anesthesia plan was to use monitored anesthesia care (MAC). Immediately prior to administration of medications, the patient was re-assessed for adequacy to receive sedatives. The heart rate, respiratory rate, oxygen saturations, blood pressure, adequacy of pulmonary ventilation, and response to care were monitored throughout the procedure. The physical status of the patient was re-assessed after the procedure. After obtaining informed consent, the endoscope was passed under direct vision. Throughout the procedure, the patient's blood pressure, pulse, and oxygen saturations were monitored continuously. The Colonoscope was introduced through the mouth, and advanced to the second part of duodenum. The upper GI endoscopy was accomplished without difficulty. The patient tolerated the procedure well. Scope In: 12:50:23 PM Scope Out: 12:58:24 PM Total Procedure Duration Time 0 hours 8 minutes 1 second Findings: The examined esophagus was normal. A medium-sized hiatal hernia was present. Two 5 mm angiodysplastic lesions with bleeding were found in the gastric body. Coagulation for hemostasis using heater probe was successful. Estimated blood loss was minimal. No gross lesions were noted in the entire examined duodenum. A single 5 mm angiodysplastic lesion with bleeding was found in the jejunum. Coagulation for hemostasis using heater probe was successful. Estimated blood loss was minimal. Impression: - Normal esophagus. - Medium-sized hiatal hernia. - Two bleeding angiodysplastic lesions in the stomach. Treated with a heater probe. - No gross lesions in the entire examined duodenum. - A single bleeding angiodysplastic lesion in the jejunum. Treated with a heater probe. - No specimens collected. Recommendation: - [facility]. - Resume regular diet. - Continue present medications. Procedure Code(s): --- Professional --- 28905, Esophagogastroduodenoscopy, flexible, transoral; with control of bleeding, any method CPT copyright 2021 [employer]. All rights reserved. The codes documented in this report are preliminary and upon abrasive mixer helper review may be revised to meet current compliance requirements. Thomas Pearce DO 07/16/2024 1:22:23 PM This report has been signed electronically. Number of Addenda: 0 Note Initiated On: 07/16/2024 12:33 PM
--- NOTE | 2024-07-16 13:22 | OP.CCLET_ITS ---
07/16/2024 Cory Mckeon Re : Upper GI endoscopy procedure for Joel Talbert Jordynr Mike This procedure was performed on June. My impressions and recommendations are as follows: Impressions : - Normal esophagus. - Medium-sized hiatal hernia. - Two bleeding angiodysplastic lesions in the stomach. Treated with a heater probe. - No gross lesions in the entire examined duodenum. - A single bleeding angiodysplastic lesion in the jejunum. Treated with a heater probe. - No specimens collected. Recommendations : - [facility]. - Resume regular diet. - Continue present medications. My findings are described in the full procedure note, which is enclosed. If I can be of further assistance, please feel free to contact me at . Sincerely, Thomas Pearce, 07/16/2024 1:22:23 PM This report has been signed electronically.
--- NOTE | 2024-07-16 13:25 | COLBX_PTH ---
PATIENT: JASON STANLEY LOC: MS3 U#:[id number] AGE/SX: 89/M ROOM: [facility] [place] RE07/11/[address]: Dr. Larry Lofton DO : 1935 BED: 1 DIS: 07/17/2024 SPEC #: [id number] RECD: 07/16/24 14:27 STATUS: IRMA LÓPEZ #: [id number] VIVIANA: 07/16/24 13:[address]: Thomas Pearce DEPT: SURGICAL PATHOLOGY RECD BY: Lorene Vargas ENTERED: 07/17/24 07:12 SP TYPE: COLON BX OTHR DR: MD Dr. Larry Young DO Dr. Juan Miguel Proano, MD Dr. Kathryn Lee, DO Dr. Nana Yaa Koram, MD Tissues: COLON BIOPSY Procedures: Surgery Specimen Level IV Comments: @ Ordering doctor for BRIANNA edited from to @ by BRYSON at 07/17/24826 @ Submitting doctor edited from to @ by BRYSON at 07/17/24826 HEADER OPERATION: Colonoscopy with biopsy and clip and EGD with electrohemostasis PRE-OP DIAGNOSIS: Anemia TISSUE SUBMITTED: Anastomotic mass biopsy MICROSCOPIC DIAGNOSIS Anastomotic mass, biopsy: Ulceration with fibrin purulent material and mild glandular distortion. No evidence of malignancy. Toni 07/21/2024 MICROSCOPIC DESCRIPTION Slides are reviewed. GROSS DESCRIPTION Received in fixative is one container labeled with the patient's name and designated Anastomotic mass biopsy. The specimen consists of multiple irregular fragments of light dubon soft tissue that in aggregate measure 1.5 x 0.3 x 0.1 cm. The specimen is totally submitted in one cassette. 07/17/2024 TC:2 CPT:45727
--- NOTE | 2024-07-16 13:28 | OP.CCLET_ITS ---
07/16/2024 Cory Mckeon Re : Colonoscopy procedure for Joel Talbert Jordynr Mike This procedure was performed on June. My impressions and recommendations are as follows: Impressions : - Preparation of the colon was poor. - Diverticulosis in the recto-sigmoid colon, in the sigmoid colon and in the descending colon. - Non-bleeding external and internal hemorrhoids. - Patent end-to-side ileo-colonic anastomosis, characterized by ulceration. Clip was placed. Clip log manager: [employer]. - Several biopsies were obtained at the anastomosis. Recommendations : - [facility]. - Resume previous diet. - Continue present medications. - Await pathology results. - Repeat colonoscopy is recommended for surveillance. The colonoscopy date will be determined after pathology results from today's exam become available for review. My findings are described in the full procedure note, which is enclosed. If I can be of further assistance, please feel free to contact me at . Sincerely, Thomas Pearce, 07/16/2024 1:27:32 PM This report has been signed electronically.
--- NOTE | 2024-07-16 13:28 | OP.COLON_ITS ---
Patient Name: Joel Talbert Procedure Date: 07/16/2024 12:58 PM Date of : 1935 Age: 89 Procedure: Colonoscopy Indications: Iron deficiency anemia secondary to chronic blood loss Providers: Thomas Pearce DO Medicines: Monitored Anesthesia Care Patient Profile: This is an 89 year old male. Refer to note in patient chart for documentation of history and physical. Last Colonoscopy: date unknown. Unable to locate last colonoscopy report. Complications: No immediate complications. Procedure: Pre-Anesthesia Assessment: - Prior to the procedure, a History and Physical was performed, and patient medications and allergies were reviewed. The patient is competent. The risks and benefits of the procedure and the sedation options and risks were discussed with the patient. All questions were answered and informed consent was obtained. Patient identification and proposed procedure were verified by the physician in the pre-procedure area. Mental Status Examination: alert and oriented. Airway Examination: normal oropharyngeal airway and neck mobility. Respiratory Examination: clear to auscultation. CV Examination: normal. Prophylactic Antibiotics: The patient does not require prophylactic antibiotics. Prior Anticoagulants: The patient has taken no anticoagulant or antiplatelet agents. ASA Grade Assessment: III - A patient with severe systemic disease. After reviewing the risks and benefits, the patient was deemed in satisfactory condition to undergo the procedure. The anesthesia plan was to use monitored anesthesia care (MAC). Immediately prior to administration of medications, the patient was re-assessed for adequacy to receive sedatives. The heart rate, respiratory rate, oxygen saturations, blood pressure, adequacy of pulmonary ventilation, and response to care were monitored throughout the procedure. The physical status of the patient was re-assessed after the procedure. After I obtained informed consent, the scope was passed under direct vision. Throughout the procedure, the patient's blood pressure, pulse, and oxygen saturations were monitored continuously. The Colonoscope was introduced through the anus and advanced to the cecum, identified by appendiceal orifice and ileocecal valve. The colonoscopy was performed without difficulty. The patient tolerated the procedure well. The quality of the bowel preparation was poor. Anatomical landmarks were photographed. Scope In: 1:01:19 PM Scope Withdrawal Time 0 hours 8 minutes 11 seconds Scope Out: 1:15:15 PM Total Procedure Duration Time 0 hours 13 minutes 56 seconds Findings: The perianal and digital rectal examinations were normal. Multiple small and large-mouthed diverticula were found in the recto-sigmoid colon, sigmoid colon and descending colon. Non-bleeding external and internal hemorrhoids were found during retroflexion. The hemorrhoids were Grade IV (internal hemorrhoids that prolapse and cannot be reduced manually). There was evidence of a prior end-to-side ileo-colonic anastomosis in the ascending colon. This was patent and was characterized by ulceration. The anastomosis was traversed. Several biopsies were obtained with cold forceps for histology in a targeted manner at the anastomosis. Verification of patient identification for the specimen was done. To stop active bleeding, one hemostatic clip was successfully placed. Clip parachutist/combatant diver qualified: [place]. There was no bleeding at the end of the procedure. Impression: - Preparation of the colon was poor. - Diverticulosis in the recto-sigmoid colon, in the sigmoid colon and in the descending colon. - Non-bleeding external and internal hemorrhoids. - Patent end-to-side ileo-colonic anastomosis, characterized by ulceration. Clip was placed. Clip parachutist/combatant diver qualified: Loggly. - Several biopsies were obtained at the anastomosis. Recommendation: - [facility] to [facility]. - Resume previous diet. - Continue present medications. - Await pathology results. - Repeat colonoscopy is recommended for surveillance. The colonoscopy date will be determined after pathology results from today's exam become available for review. Procedure Code(s): --- Professional --- 49852, Colonoscopy, flexible; with control of bleeding, any method CPT copyright 2021 [employer]. All rights reserved. The codes documented in this report are preliminary and upon foreign food specialty cook review may be revised to meet current compliance requirements. Thomas Pearce DO 07/16/2024 1:27:32 PM This report has been signed electronically. Number of Addenda: 0 Note Initiated On: 07/16/2024 12:58 PM
[2024-07-16] MEDS: Ceftriaxone 1 GM/50 ML BAG IV (15:09)
[2024-07-16] MEDS: hydrALAZINE 50 MG Tablet PO ×3 (15:10→20:21)
[2024-07-16] MEDS: Tamsulosin HCl 0.4 MG Capsule 0.8 MG PO (15:58)
[2024-07-16] MEDS: Insulin Lispro 100 UNIT/ML INSULN.PEN SC (15:59)
[2024-07-16] MEDS: Ferrous Sulfate 325 MG Tablet PO (15:59)
[2024-07-16] MEDS: Furosemide 40 MG Tablet PO (15:59)
[2024-07-16 16:18] LABS: Bedside Glucose 214 mg/dL (74-106)
[2024-07-16] MEDS: amLODIPine 2.5 MG Tablet PO (20:22)
[2024-07-16] MEDS: Magnesium Chloride 64 MG Delay Rel.Tablet PO (20:22)
[2024-07-16] MEDS: Menthol/Lanolin/Calamine/Znox 113 GM Tube 1 APPLIC TOPICAL (20:22)
[2024-07-16] MEDS: Pravastatin 40 MG Tablet PO (20:23)
[2024-07-16] MEDS: Latanoprost 0.005% 1 Bottle 1 DRP OPHTHALMIC (20:23)
[2024-07-16] MEDS: Gabapentin 400 MG Capsule PO (20:27)
[2024-07-16 20:51] LABS: Bedside Glucose 206 mg/dL (74-106)
[2024-07-17 02:30] VITALS: PULSE 50
[2024-07-17 03:03] VITALS: BP 125/71; PULSE 51; RESP 18; TEMP 36.6; O2SAT 100
[2024-07-17 06:03] LABS: Absolute Neutrophil Count 3.3 X10^3/uL (2.0-7.7); Basophil# 0.05 X10^3/uL; Eosinophil# 0.18 X10^3/uL; Eosinophils% 3.7 % (0-5); Hematocrit 28.2 % (40-54); Lymphocyte % 16.5 % (19-41); Mean Corp Hgb Conc 28.4 g/dL (32-36); Mean Corpuscular Hgb 28.2 pg (27.0-32.0); Mean Corpuscular Volume 99.3 fL (80-94); Mean Platelet Vol. 10.7 fl (6.2-12.0); Monocyte% 10.3 % (0-10); NRBC Flagged by Analyzer 0 % (0-5); Neutrophil % 68.3 % (47-70); POSITIVE MORPHOLOGY YES; Platelet Count 108 K/mm3 (150-450); RBC Distribution Width CV 19.5 % (11.6-14.6); RBC Distribution Width SD 71.5 fl (35.1-43.9); Red Blood Count 2.84 M/mm3 (4.6-6.2); White Blood Count 4.8 K/mm3 (4.4-11.0)
[2024-07-17 06:14] LABS: Differential Indicated SCAN CRITERIA MET
[2024-07-17 06:34] LABS: Bedside Glucose 124 mg/dL (74-106)
[2024-07-17] MEDS: Albuterol 2.5 MG/3 ML VIAL.NEB. INHALATION ×2 (06:44→11:01)
[2024-07-17 07:03] LABS: Anion Gap 3 (5-15); BUN 21 mg/dL (7-18); BUN/Creat Ratio 11.8 RATIO (10-20); Calcium,Total 8.6 mg/dL (8.5-10.1); Chloride 105 mmol/L (98-107); Creatinine, Serum 1.78 mg/dL (0.70-1.30); EST Glomerular Filtration Rate 38 mL/min (>60); Est Glom Filt Rate - Afr Amer 47 mL/min (>60); Glucose 126 mg/dL (74-106); Potassium 3.8 mmol/L (3.5-5.1); Sodium Level 141 mmol/L (136-145)
[2024-07-17 07:11] VITALS: PULSE 51; RESP 17; O2SAT 93
--- NOTE | 2024-07-17 08:50 | PN.HOSP_ITS ---
Reason for Visit Reason for Visit: Diagnoses Anemia, unspecified (07/11/24) Type 2 diabetes mellitus with hyperglycemia (07/11/24) Mixed hyperlipidemia (07/11/24) Essential (primary) hypertension (07/11/24) Other cardiomyopathies (07/11/24) Other ventricular tachycardia (07/11/24) Permanent atrial fibrillation (07/11/24) Unspecified atrial fibrillation (07/11/24) Unspecified systolic (congestive) heart failure (07/11/24) Heart failure, unspecified (07/11/24) Cellulitis of left lower limb (07/11/24) Pressure ulcer of sacral region, stage 3 (07/11/24) Chronic kidney disease, stage 3b (07/11/24) Urinary tract infection, site not specified (07/11/24) Benign prostatic hyperplasia without lower urinary tract symptoms (07/11/24) Abscess of prostate (07/11/24) Other malaise (07/11/24) Puncture wound without foreign body of left forearm, initial encounter (07/11/24) Subjective Subjective No events overnight. Feeling well. Objective Data Objective Data Vital Signs: Vital Signs Temp Pulse Resp BP Pulse Ox O2 Del Method O2 Flow Rate 36.6 C 51 L 17 125/71 H 93 Nasal Cannula 2 07/17/24 03:03 07/17/24 07:11 07/17/24 07:11 07/17/24 03:03 07/17/24 07:11 07/17/24 07:11 07/17/24 07:11 Oxygen Flow Rate (L/min) 2 Oxygen Delivery Method Nasal Cannula Weight: 88.904 kg Body Mass Index (BMI) 25.8 Intake & Output: Intake and Output for Last 24 Hours 07/15/24 07/16/24 07/17/24 23:59 23:59 23:59 Intake Total 945 / 3145 3901.67 / 4176.67 575 / 575 Output Total 950 / 950 300 / 725 850 / 850 Balance -2194 3601.67 / 3451.67 -275 / -275 Lab / Micro Data 07/17/24 05:30 07/17/24 05:30 Labs: Laboratory Results - last 24 hr 07/16/24 06:27: Differential Comment SCANNED, Anisocytosis 2+, Microcytosis 1+, Macrocytosis 1+ 07/16/24 10:53: POC Glucose 73 L 07/16/24 12:37: POC Glucose 85 07/16/24 15:56: POC Glucose 214 H 07/16/24 20:20: POC Glucose 206 H 07/17/24 05:30: WBC 4.8, RBC 2.84 L, Hgb 8.0 L, Hct 28.2 L, MCV 99.3 H, MCH 28.2, MCHC 28.4 L, RDW Std Deviation 71.5 H, RDW Coeff of Rachelle 19.5 H, Plt Count 108 L, MPV 10.7, Immature Gran % (Auto) 0.200, Neut % (Auto) 68.3, Lymph % (Auto) 16.5 L, Hinds % (Auto) 10.3 H, Eos % (Auto) 3.7, Baso % (Auto) 1.0, Absolute Neuts (auto) 3.3, Absolute Lymphs (auto) 0.80 L, Nucleated RBC % 0, Differential Comment , Sodium 141, Potassium 3.8, Chloride 105, Carbon Dioxide 33.0 H, Anion Gap 3 L, BUN 21 H, Creatinine 1.78 H, Estim Creat Clear Calc 31.80, Est GFR (MDRD) Af Amer 47 L, Est GFR (MDRD) Non-Af 38 L, BUN/Creatinine Ratio 11.8, Glucose 126 H, Calcium 8.6 07/17/24 05:53: POC Glucose 124 H Micro: Microbiology 07/15/24 10:37 Stool Stool Occult Blood (DIONNE) - Final Occult Blood Positive 07/12/24 01:27 Urine, Clean Catch Urine Culture - Final Gram negative karina Mixed Gram Positive Organisms Physical Exam Const alert and no apparent distress HEENT head/scalp atraumatic and moist oral mucous membranes Resp normal respiratory effort and no retractions Assessment & Plan Assessment/Plan (1) UTI (urinary tract infection): PLAN: Plan UTI * no prostatic abscess per . * UCx growing out only less than 1000 GNR. However urine culture was performed on the and patient actually had received antibiotics on the , but before the culture was performed. Previously, patient has had E. coli that was pansensitive. Had been on pip-tazo then changed over to ceftriaxone. Anemia * received 1 units of PRBs. Heme positive stool. * Gi on consult. EGD on the showed normal esophagus, medium size hiatal hernia, 2 bleeding angiodysplastic lesions in the stomach that were treated with heater probe. Single bleeding angiodysplastic lesion in the treated with heater probe. Colonoscopy showed poor prep. Diverticulosis in the rectosigmoid colon. Nonbleeding external and internal hemorrhoids. * Patient did have endoscopy back in April of this year where his EGD showed grade 1 esophageal varices. Nonbleeding gastric ulcer with pigmented material that was treated with heater probe. * On IV pantoprazole. Changed to oral. Chronic conditions * A-fib. Rate controlled. Continue with amiodarone. No anticoagulation given the anemia and fall risk. I think drawn referral back in May were from nose left to family to discuss further about anticoagulation but with his recent GI bleed, will continue to hold off on that until further follow-up with cardiology. * Diabetes mellitus type 2: Insulin-dependent. Hypoglycemia down to 43 on the . Patient received dextrose this morning. Will discontinue the glargine for now. * Glaucoma: Stable. Continue with latanoprost. * Hypertension: Fair control. Continue with hydralazine amlodipine. VTE prophylaxis: SCDs Discharge home
[2024-07-17 09:03] VITALS: BP 133/63; PULSE 50; RESP 16; TEMP 37.2; O2SAT 95
[2024-07-17 09:43] VITALS: BP 133/63; PULSE 50
[2024-07-17] MEDS: hydrALAZINE 50 MG Tablet PO (09:43)
[2024-07-17] MEDS: Cholecalciferol (VIT D3) 25 MCG TABLET (1,000 UNITS) PO (09:43)
[2024-07-17] MEDS: Magnesium Chloride 64 MG Delay Rel.Tablet PO (09:43)
[2024-07-17] MEDS: Furosemide 40 MG Tablet PO (09:43)
[2024-07-17] MEDS: Menthol/Lanolin/Calamine/Znox 113 GM Tube 1 APPLIC TOPICAL (09:44)
[2024-07-17] MEDS: Ferrous Sulfate 325 MG Tablet PO (09:44)
[2024-07-17] MEDS: Amiodarone 200 MG Tablet PO (09:44)
[2024-07-17] MEDS: Nystatin Powder 15gm Bottle 1 APPLIC TOPICAL (09:44)
[2024-07-17] MEDS: Tamsulosin HCl 0.4 MG Capsule 0.8 MG PO (09:47)
--- NOTE | 2024-07-17 10:14 | DS.PCM_ITS ---
Providers Date of Admission: 07/11/24 Primary Care Physician: Dr. 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: Consult: Urology Routine Consulting Provider: Nick Villanueva Reason for Consult: Prostate abscess EMERGENT Consult: No Notified: Yes Date Notified: 07/11/24 Time Notified: 23:45 Method of Notification: ED Physician Initiated 07/12/24 13:46 Consult: Gastroenterology Routine Consulting Provider: [facility] Reason for Consult: acute on chronic iron deficiency anemia EMERGENT Consult: No Notified: Yes Date Notified: 07/12/24 Time Notified: 13:47 Method of Notification: ED Physician Initiated Reason For Visit: PROSTATIC ABSCESS STATUS POST TURP Diagnosis Discharge Diagnosis (1) UTI (urinary tract infection): Status: Acute Code(s): N39.0 - Urinary tract infection, site not specified Plan UTI * no prostatic abscess per . * UCx growing out only less than 1000 GNR. However urine culture was performed on the and patient actually had received antibiotics on the , but before the culture was performed. Previously, patient has had E. coli that was pansensitive. Had been on pip-tazo then changed over to ceftriaxone. Anemia * received 1 units of PRBs. Heme positive stool. * Gi on consult. EGD on the showed normal esophagus, medium size hiatal hernia, 2 bleeding angiodysplastic lesions in the stomach that were treated with heater probe. Single bleeding angiodysplastic lesion in the treated with heater probe. Colonoscopy showed poor prep. Diverticulosis in the rectosigmoid colon. Nonbleeding external and internal hemorrhoids. * Patient did have endoscopy back in April of this year where his EGD showed grade 1 esophageal varices. Nonbleeding gastric ulcer with pigmented material that was treated with heater probe. * On IV pantoprazole. Changed to oral. Chronic conditions * A-fib. Rate controlled. Continue with amiodarone. No anticoagulation given the anemia and fall risk. I think drawn referral back in May were from nose left to family to discuss further about anticoagulation but with his recent GI bleed, will continue to hold off on that until further follow-up with cardiology. * Diabetes mellitus type 2: Insulin-dependent. Hypoglycemia down to 43 on the 29th. Patient received dextrose this morning. Will discontinue the glargine for now. * Glaucoma: Stable. Continue with latanoprost. * Hypertension: Fair control. Continue with hydralazine amlodipine. VTE prophylaxis: SCDs Discharge home Medications at Discharge Home Medications pravastatin 40 mg tablet 40 mg PO QHS cholesterol 05/14/16 cholecalciferol (vitamin D3) 25 mcg (1,000 unit) tablet 1,000 unit PO DAILY vitamin 07/16/16 cyanocobalamin (vitamin B-12) 1,000 mcg tablet 1,000 mcg PO DAILY supplement 07/16/16 sitagliptin phosphate 50 mg tablet 50 mg PO DAILY diabetes 06/25/19 docusate sodium 100 mg capsule (Colace) 100 mg PO BID PRN sool softener 09/11/19 ferrous sulfate 325 mg (65 mg iron) tablet (Feosol) 325 mg PO BID iron supplement 09/11/19 folic acid 400 mcg tablet 800 mcg PO DAILY vitamin 09/11/19 insulin glargine 100 unit/mL (3 mL) subcutaneous pen 8 unit subcut QHS diabetes 09/11/19 gabapentin 400 mg capsule 400 mg PO QHS nerve pain 03/18/24 latanoprost 0.005 % eye drops 1 drp ophthalmic (eye) QHS eye health 03/18/24 potassium chloride 20 mEq tablet,extended release(part/cryst) 20 meq PO DAILY supplement 03/18/24 furosemide 40 mg tablet (Lasix) 40 mg PO BIDCM Edema #120 tabs 03/20/24 hydralazine 50 mg tablet 50 mg PO 4X/DAY BP 04/02/24 finasteride 5 mg tablet 5 mg PO DAILY 30 days #30 tabs 05/22/24 magnesium chloride 64 mg (magnesium chloride) tablet,delayed release (Mag 64) 64 mg PO BID Supplement #60 tabs 05/22/24 amlodipine 5 mg tablet 2.5 mg (1/2 x 5 mg) PO HS 30 days #15 tabs 05/27/24 amiodarone 200 mg tablet 200 mg PO DAILY #90 tabs 06/15/24 tamsulosin 0.4 mg capsule (Flomax) 0.8 mg PO DAILY 07/11/24 torsemide 20 mg tablet 20 mg PO DAILY 07/11/24 amoxicillin 875 mg-potassium clavulanate 125 mg tablet 1 tab PO BID #4 tabs 07/17/24 pantoprazole 40 mg tablet,delayed release 40 mg PO BIDCM 30 days #60 tabs 07/17/24 Hospital Course Operations None Procedures EGD Summary of Care Provided Minutes Spent on Discharge: 32 Hospital Course: This is an 89-year-old male presents with difficulty urinating. Plan to have a urinary tract infection. There is abnormality on his CAT scan with patient's recent TURP for abscess. Ultrasound did not show any abscess and patient was seen by urology who did not recommend any additional workup. Patient was started on broad-spectrum antibiotics with pip-tazo but a urine culture was unremarkable but given previous studies showing pansensitive E. coli, patient will be discharged with Augmentin to complete a 7-day course of antibiotics. Patient did develop anemia and did receive 1 unit of packed red blood cells. Patient had endoscopy on the that showed a normal esophagus,medium size hiatal hernia, 2 bleeding angiodysplastic lesions in the stomach that were treated with heater probe. Single bleeding angiodysplastic lesion in the treated with heater probe. Colonoscopy showed poor prep. Diverticulosis in the rectosigmoid colon. Nonbleeding external and internal hemorrhoids. Patient will be discharged with Protonix. Weight / BMI Weight Weight: 88.904 kg Body Mass Index (BMI) 25.8 ABG / Lab / Microbiology Data 07/17/24 05:30 07/17/24 05:30 Laboratory: Laboratory Results - last 24 hr 07/16/24 10:53: POC Glucose 73 L 07/16/24 12:37: POC Glucose 85 07/16/24 15:56: POC Glucose 214 H 07/16/24 20:20: POC Glucose 206 H 07/17/24 05:30: WBC 4.8, RBC 2.84 L, Hgb 8.0 L, Hct 28.2 L, MCV 99.3 H, MCH 28.2, MCHC 28.4 L, RDW Std Deviation 71.5 H, RDW Coeff of Rachelle 19.5 H, Plt Count 108 L, MPV 10.7, Immature Gran % (Auto) 0.200, Neut % (Auto) 68.3, Lymph % (Auto) 16.5 L, [place] % (Auto) 10.3 H, Eos % (Auto) 3.7, Baso % (Auto) 1.0, Absolute Neuts (auto) 3.3, Absolute Lymphs (auto) 0.80 L, Nucleated RBC % 0, Differential Comment , Sodium 141, Potassium 3.8, Chloride 105, Carbon Dioxide 33.0 H, Anion Gap 3 L, BUN 21 H, Creatinine 1.78 H, Estim Creat Clear Calc 31.80, Est GFR (MDRD) Af Amer 47 L, Est GFR (MDRD) Non-Af 38 L, BUN/Creatinine Ratio 11.8, Glucose 126 H, Calcium 8.6 07/17/24 05:53: POC Glucose 124 H Microbiology: Microbiology 07/15/24 10:37 Stool Stool Occult Blood (DIONNE) - Final Occult Blood Positive 07/12/24 01:27 Urine, Clean Catch Urine Culture - Final Gram negative karina Mixed Gram Positive Organisms D/C Instructions Discharge Diet: Low fat / Low cholesterol Meaningful Use Info Meaningful Use Meaningful Use Diagnoses (Choose all that apply): None applicable Ischemic Stroke Statin Dosing Therapy Reference: STATIN DOSE THERAPY REFERENCE: * Patients > 75 years receive moderate or high dose statin therapy. * Patients 75 years or YOUNGER should receive HIGH intensity statin dose unless contraindicated. You will be required to document reason for non-treatment if statin daily dose does not meet guidelines. HIGH DOSE STATIN THERAPY DAILY Atorvastatin > than or = to 40 mg Rosuvastatin > than or = to 20 mg Amlodipine + Atorvastatin > than or = to 2.5/40 mg Ezetimibe + Simvastatin 10/80 mg Simvastatin 80mg Discharge Plan Admission Admit Date/Time: 07/11/24 23:40 Primary Reason for Your Visit: Urinary tract infection Attending Provider: Larry Lofton Primary Care Provider: Cory Mckeon Consulting Providers: Nick Villanueva; Guerita Moralez; Rosario Patel Instructions Additional Instructions / Restrictions: You have a urinary tract infection. Will be discharged with antibiotics for few more days. Please complete those. Please follow-up with urology with Dr. Streeter at routine follow-up. He did have anemia and did require a unit of packed red blood cells. Dr. Pearce did endoscopy on you were there was some lesions that were bleeding. He was able to treat those with heater probe (performed cauterization). Please follow-up Dr. Pearce next 1 to 2 months. Discharge Orders/Prescriptions Prescriptions: New amoxicillin-pot clavulanate 875-125 mg tablet 1 tab PO BID Qty: 4 0RF Continued ferrous sulfate [Feosol] 325 mg (65 mg iron) tablet 325 mg PO BID docusate sodium [Colace] 100 mg capsule 100 mg PO BID PRN (Reason: sool softener) folic acid 400 mcg tablet 800 mcg PO DAILY hydralazine 50 mg tablet 50 mg PO 4X/DAY amlodipine 5 mg tablet 2.5 mg PO HS 30 Days Qty: 15 0RF pravastatin 40 MG tablet 40 mg PO QHS Patient Comments: Cholestrol sitagliptin phosphate 50 mg tablet 50 mg PO DAILY Patient Comments: Diabetes insulin glargine 100 unit/mL (3 mL) insulin pen 8 unit subcut QHS Patient Comments: Long acting insulin for diabetes cyanocobalamin (vitamin B-12) 1,000 MCG tablet 1,000 mcg PO DAILY Patient Comments: Supplement cholecalciferol (vitamin D3) 1,000 UNIT tablet 1,000 unit PO DAILY Patient Comments: Supplement gabapentin 400 mg capsule 400 mg PO QHS latanoprost 0.005 % drops 1 drp ophthalmic (eye) QHS potassium chloride 20 mEq tablet,ER particles/crystals 20 meq PO DAILY furosemide [Lasix] 40 mg tablet 40 mg PO BIDCM Qty: 120 0RF finasteride 5 mg Tablet 5 mg PO DAILY 30 Days Qty: 30 0RF magnesium chloride [Mag 64] 64 mg Tablet,Delayed Release (Dr/Ec) 64 mg PO BID Qty: 60 0RF tamsulosin [Flomax] 0.4 mg capsule 0.8 mg PO DAILY torsemide 20 mg tablet 20 mg PO DAILY amiodarone 200 mg tablet 200 mg PO DAILY Qty: 90 3RF Changed pantoprazole 40 mg Tablet,Delayed Release (Dr/Ec) 40 mg PO BIDCM 30 Days Qty: 60 0RF Discontinued (DME) True Metrix Glucose Test Strip Strip MISCELLANEOUS Patient Comments: [NO ORIGINAL SIG] (DME) pen needle, diabetic [Droplet Pen Needle] 31 gauge x 3/16 needle MISCELLANEOUS Patient Comments: [NO ORIGINAL SIG] Referrals / Follow Up: [facility] [Provider Group] - Within 3 Months Cory Mckeon MD [Primary Care Provider] - Within 2 Weeks Nick Villanueva MD [Med Staff - Active Staff] - Within 3 Months Disposition Disposition (needs filled in before D/C Order can be placed): Home Health Service Charges/Coding Visit Charges Inpatient E&M: 83642 Disch Hosp >30min
--- NOTE | 2024-07-17 11:03 | CASEMGMT ---
DC summary sent to [facility] via [employer] at this time.
[2024-07-17 11:12] VITALS: PULSE 51; RESP 18
--- NOTE | 2024-07-17 11:24 | CASEMGMT ---
YONIS CM into pt room, pt sitting up in chair with shoes on and sister at bedside. Pt states he is ready to go home. He is aware that [facility] will be seeing him at home. Pt has portable tank that will be brought to go home with. Pt is currently on 2L. Pt denies any further needs and is happy to be dc'ing.
--- NOTE | 2024-07-17 12:23 | PHA.DC.MC.R ---
Pharmacy [facility] has performed discharge medication reconciliation and counseling for this patient. The patient's discharge medication list was reviewed for discrepancies and discrepancies were resolved. The patient was counseled on the following discharge medications and changes in medications for homegoing were reviewed. 1. AUGMENTIN 2. PROTONIX --> DOSE CHANGE FROM DAILY TO BID The Reason for Use, instructions for use, and potential side effects were reviewed for all new medications. The patient's questions regarding all of their medications were answered. The patient was able to verbally demonstrate an understanding of their discharge medications. Medications at Discharge Home Medications pravastatin 40 mg tablet 40 mg PO QHS cholesterol 05/14/16 cholecalciferol (vitamin D3) 25 mcg (1,000 unit) tablet 1,000 unit PO DAILY vitamin 07/16/16 cyanocobalamin (vitamin B-12) 1,000 mcg tablet 1,000 mcg PO DAILY supplement 07/16/16 sitagliptin phosphate 50 mg tablet 50 mg PO DAILY diabetes 06/25/19 docusate sodium 100 mg capsule (Colace) 100 mg PO BID PRN sool softener 09/11/19 ferrous sulfate 325 mg (65 mg iron) tablet (Feosol) 325 mg PO BID iron supplement 09/11/19 folic acid 400 mcg tablet 800 mcg PO DAILY vitamin 09/11/19 insulin glargine 100 unit/mL (3 mL) subcutaneous pen 8 unit subcut QHS diabetes 09/11/19 gabapentin 400 mg capsule 400 mg PO QHS nerve pain 03/18/24 latanoprost 0.005 % eye drops 1 drp ophthalmic (eye) QHS eye health 03/18/24 potassium chloride 20 mEq tablet,extended release(part/cryst) 20 meq PO DAILY supplement 03/18/24 furosemide 40 mg tablet (Lasix) 40 mg PO BIDCM Edema #120 tabs 03/20/24 hydralazine 50 mg tablet 50 mg PO 4X/DAY BP 04/02/24 finasteride 5 mg tablet 5 mg PO DAILY 30 days #30 tabs 05/22/24 magnesium chloride 64 mg (magnesium chloride) tablet,delayed release (Mag 64) 64 mg PO BID Supplement #60 tabs 05/22/24 amlodipine 5 mg tablet 2.5 mg (1/2 x 5 mg) PO HS 30 days #15 tabs 05/27/24 amiodarone 200 mg tablet 200 mg PO DAILY #90 tabs 06/15/24 tamsulosin 0.4 mg capsule (Flomax) 0.8 mg PO DAILY 07/11/24 torsemide 20 mg tablet 20 mg PO DAILY 07/11/24 amoxicillin 875 mg-potassium clavulanate 125 mg tablet 1 tab PO BID #4 tabs 07/17/24 pantoprazole 40 mg tablet,delayed release 40 mg PO BIDCM 30 days #60 tabs 07/17/24
== END 2024-07-17 12:15 | disposition home health service (06) | DRG 689 ==
LOC: ED 23:10 → MS3 23:39
PROVIDERS: Anesthesiology; Internal Medicine Gastroenterology; Student in an Organized Health Care Education/Training Program; Admitting Provider Internal Medicine; Emergency Provider Emergency Medicine; PCP Family Medicine
PROC: 0DJD8ZZ Inspection of Lower Intestinal Tract, Via Natural or Artificial Opening Endoscopic (ICD-10-PCS; CPT 45378; principal; 2024-07-16 13:20)
DX: N39.0 Urinary tract infection, site not specified (principal); K31.811 Angiodysplasia of stomach and duodenum with bleeding; K55.21 Angiodysplasia of colon with hemorrhage; K63.3 Ulcer of intestine; I13.0 Hypertensive heart and chronic kidney disease with heart failure and stage 1 through stage 4 chronic kidney disease, or unspecified chronic kidney disease; I50.32 Chronic diastolic (congestive) heart failure; I48.21 Permanent atrial fibrillation; I42.8 Other cardiomyopathies; L03.116 Cellulitis of left lower limb; E11.649 Type 2 diabetes mellitus with hypoglycemia without coma; D69.6 Thrombocytopenia, unspecified; N18.32 Chronic kidney disease, stage 3b; I27.21 Secondary pulmonary arterial hypertension; D50.0 Iron deficiency anemia secondary to blood loss (chronic); K25.9 Gastric ulcer, unspecified as acute or chronic, without hemorrhage or perforation; E11.51 Type 2 diabetes mellitus with diabetic peripheral angiopathy without gangrene; E11.40 Type 2 diabetes mellitus with diabetic neuropathy, unspecified; E11.65 Type 2 diabetes mellitus with hyperglycemia; Z79.4 Long term (current) use of insulin; I25.10 Atherosclerotic heart disease of native coronary artery without angina pectoris; E78.2 Mixed hyperlipidemia; E11.22 Type 2 diabetes mellitus with diabetic chronic kidney disease; K57.30 Diverticulosis of large intestine without perforation or abscess without bleeding; K44.9 Diaphragmatic hernia without obstruction or gangrene; R00.1 Bradycardia, unspecified; K64.3 Fourth degree hemorrhoids; H40.9 Unspecified glaucoma; R53.81 Other malaise; Z66 Do not resuscitate; Z99.81 Dependence on supplemental oxygen; Z79.84 Long term (current) use of oral hypoglycemic drugs; Z79.899 Other long term (current) drug therapy; Z87.891 Personal history of nicotine dependence; Z90.79 Acquired absence of other genital organ(s); Z95.810 Presence of automatic (implantable) cardiac defibrillator
CPT/HCPCS: 36415; 74177; 76872; 80048; 80053; 80076; 80202; 81001; 82274; 82728; 82962; 83036; 83540; 83550; 83605; 83735; 84100; 85025; 85045; 85610; 85730; 86850; 86900; 86901; 86920; 86922; 87086; 87088; 87641; 88305; 93005; 94640; 94668; 97110; 97116; 97162; 97165; 97530; 97535; 99213; 99284; J7040; J7050; P9016; Q9967; A4216; G0463; J2405; J7799

== ENCOUNTER → 2024-08-13 | Outpatient (CLI) | payer MEDICARE, SELFPAY ==
--- NOTE | 2024-08-13 15:45 | RAD_ITS ---
STUDY: X-RAY CHEST REASON FOR EXAM: Male, 89 years old. Pleural effusion TECHNIQUE: PA and lateral COMPARISON: None. FINDINGS: There is a small left pleural effusion and left lower lobe consolidation.. Minor discoid atelectasis or scarring in the right upper and lower lobes Heart is enlarged. Normal mediastinum and malissa. Normal visualized pulmonary arteries. Tortuous mildly calcified aortic arch and descending thoracic aorta. AICD noted on the left with electrode in right ventricle. Dorsal spine demonstrates degenerative change. Normal visualized ribs, clavicles, and shoulders. There is no demonstrated abnormality of the visualized soft tissue structures of the upper abdomen. RAD/Chest PA and Lateral IMPRESSION: ASHD. Small left pleural effusion and left lower lobe atelectasis Electronically Signed: Rodriguez Baldwin MD at 16:04 EDT ,
[2024-08-13 16:15] LABS: Anion Gap 3 (5-15); BUN 40 mg/dL (7-18); BUN/Creat Ratio 19.1 RATIO (10-20); Chloride 99 mmol/L (98-107); Creatinine, Serum 2.09 mg/dL (0.70-1.30); EST Glomerular Filtration Rate 32 mL/min (>60); Est Glom Filt Rate - Afr Amer 39 mL/min (>60); Glucose 216 mg/dL (74-106); Potassium 4.4 mmol/L (3.5-5.1); Sodium Level 137 mmol/L (136-145)
[2024-08-13 16:19] LABS: BNP,B-Type NATRIURETIC PEPTIDE 1116.6 pg/mL (0-100)
== END | disposition home or self-care (01) ==
PROVIDERS: PCP Family Medicine; Referring Provider Nurse Practitioner Gerontology; Visit Provider Nurse Practitioner Gerontology
DX: J90 Pleural effusion, not elsewhere classified (principal); R06.09 Other forms of dyspnea
CPT/HCPCS: 36415; 71046; 80048; 83880

== ENCOUNTER 2024-08-22 08:18 | Inpatient (IN) | payer MEDICARE, SELFPAY ==
[2024-08-22] VITALS (11 sets, daily range): BP systolic 91–149; BP diastolic 54–78; PULSE 57–69; RESP 14–22; TEMP 36.1–37.1; O2SAT 93–98; BMI 27.4; BMI 26.6
[2024-08-22] MEDS: Albuterol 2.5 MG/3 ML VIAL.NEB. INHALATION (08:46)
[2024-08-22] MEDS: fentaNYL 100 MCG/2 ML Ampul 25 MCG IV (09:27)
[2024-08-22] MEDS: 0.9% Normal Saline (1000mL) 1,000 ML 150 ML IV (09:27)
[2024-08-22 09:37] LABS: BNP,B-Type NATRIURETIC PEPTIDE 2118.7 pg/mL (0-100)
[2024-08-22 09:39] LABS: Anion Gap 3 (5-15); BUN 52 mg/dL (7-18); Calcium,Total 8.6 mg/dL (8.5-10.1); Chloride 103 mmol/L (98-107); Creatinine, Serum 2.36 mg/dL (0.70-1.30); EST Glomerular Filtration Rate 28 mL/min (>60); Est Glom Filt Rate - Afr Amer 34 mL/min (>60); Estimated Creatinine Clearance 23.98 ml/min; Glucose 68 mg/dL (74-106); Potassium 3.9 mmol/L (3.5-5.1); Sodium Level 140 mmol/L (136-145); Troponin-I HS 93 pg/mL (3.0-78.0)
[2024-08-22 09:58] LABS: Erythrocyte Sedimentation Rate 88 mm/hr (0-20)
[2024-08-22 10:01] LABS: Absolute Lymphocyte Count 0.37 X10^3/uL (0.83-4.51); Absolute Neutrophil Count 4.8 X10^3/uL (2.0-7.7); Basophil# 0.02 X10^3/uL; Basophil% 0.4 % (0-1); Hematocrit 26.1 % (40-54); Hemoglobin 7.6 g/dL (13.0-16.5); Lymphocyte # 0.37 X10^3/ul (0.83-4.51); Lymphocyte % 6.8 % (19-41); Mean Corp Hgb Conc 29.1 g/dL (32-36); Mean Corpuscular Hgb 27.7 pg (27.0-32.0); Mean Corpuscular Volume 95.3 fL (80-94); Mean Platelet Vol. 11.3 fl (6.2-12.0); Monocyte# 0.23 X10^3/uL; Monocyte% 4.2 % (0-10); NRBC Flagged by Analyzer 0 % (0-5); Neutrophil # 4.84 X10^3/uL (2.7-7.7); Neutrophil % 88.2 % (47-70); POSITIVE DIFFERENTIAL YES; POSITIVE MORPHOLOGY YES; Platelet Count 132 K/mm3 (150-450); RBC Distribution Width CV 17.5 % (11.6-14.6); RBC Distribution Width SD 60.2 fl (35.1-43.9); Red Blood Count 2.74 M/mm3 (4.6-6.2); White Blood Count 5.5 K/mm3 (4.4-11.0)
[2024-08-22 10:02] LABS: Differential Indicated SCAN CRITERIA MET
[2024-08-22 10:49] LABS: Platelet Estimate SLT DEC (ADEQ)
[2024-08-22 10:50] LABS: Red Cell Morphology NORM C+C NORMAL (NORM C&C)
[2024-08-22 10:51] LABS: Dohle Bodies 1+; Vacuolated Cells 1+
[2024-08-22] MEDS: Piperacil/Tazobactam 3.375 GM in 0.9% Normal Saline (50mL MB+) 50 ML IV (12:11)
[2024-08-22] MEDS: Vancomycin HCl 2,000 MG in 0.9% Normal Saline (500mL Bag) 500 ML 250 MG IV (15:53)
[2024-08-22 17:14] LABS: Bedside Glucose 66 mg/dL (74-106)
[2024-08-22 17:22] LABS: Bedside Glucose 59 mg/dL (74-106)
[2024-08-22 17:41] LABS: Bedside Glucose 66 mg/dL (74-106)
[2024-08-22 18:09] LABS: Bedside Glucose 132 mg/dL (74-106)
[2024-08-22] MEDS: Furosemide 40 MG/4 ML Vial IV (18:11)
[2024-08-22 22:49] LABS: Bedside Glucose 111 mg/dL (74-106)
[2024-08-23] VITALS (7 sets, daily range): BP systolic 89–98; BP diastolic 53–68; PULSE 55–89; RESP 14–18; TEMP 36.4–36.6; O2SAT 92–100
[2024-08-23 06:59] LABS: Absolute Lymphocyte Count 0.41 X10^3/uL (0.83-4.51); Absolute Neutrophil Count 6.8 X10^3/uL (2.0-7.7); Basophil# 0.01 X10^3/uL; Basophil% 0.1 % (0-1); Hematocrit 26.3 % (40-54); Hemoglobin 7.5 g/dL (13.0-16.5); Lymphocyte # 0.41 X10^3/ul (0.83-4.51); Lymphocyte % 5.3 % (19-41); Mean Corp Hgb Conc 28.5 g/dL (32-36); Mean Corpuscular Hgb 27.7 pg (27.0-32.0); Mean Platelet Vol. 11.6 fl (6.2-12.0); Monocyte# 0.42 X10^3/uL; Monocyte% 5.5 % (0-10); NRBC Flagged by Analyzer 0 % (0-5); Neutrophil # 6.78 X10^3/uL (2.7-7.7); Neutrophil % 88.1 % (47-70); POSITIVE DIFFERENTIAL YES; POSITIVE MORPHOLOGY YES; Platelet Count 113 K/mm3 (150-450); RBC Distribution Width CV 17.9 % (11.6-14.6); RBC Distribution Width SD 63.3 fl (35.1-43.9); Red Blood Count 2.71 M/mm3 (4.6-6.2); White Blood Count 7.7 K/mm3 (4.4-11.0)
[2024-08-23 07:03] LABS: Bedside Glucose 120 mg/dL (74-106)
[2024-08-23 07:09] LABS: Anion Gap 7 (5-15); BUN 60 mg/dL (7-18); BUN/Creat Ratio 20.8 RATIO (10-20); Calcium,Total 8.8 mg/dL (8.5-10.1); Chloride 101 mmol/L (98-107); Creatinine, Serum 2.88 mg/dL (0.70-1.30); EST Glomerular Filtration Rate 22 mL/min (>60); Est Glom Filt Rate - Afr Amer 27 mL/min (>60); Estimated Creatinine Clearance 20.22 ml/min; Glucose 107 mg/dL (74-106); Potassium 4.7 mmol/L (3.5-5.1); Sodium Level 139 mmol/L (136-145)
[2024-08-23 07:15] LABS: Differential Indicated SCAN CRITERIA MET
[2024-08-23 09:11] LABS: Differential Comment SCANNED
[2024-08-23 12:10] LABS: Bedside Glucose 113 mg/dL (74-106)
[2024-08-23] MEDS: Piperacil/Tazobactam 3.375 GM in 0.9% Normal Saline (50mL MB+) 50 ML IV ×2 (14:56→21:17)
[2024-08-23 16:02] LABS: Vancomycin, Trough Level 15.5 ug/mL (5.0-15.0)
[2024-08-23 17:11] LABS: Bedside Glucose 147 mg/dL (74-106)
[2024-08-23] MEDS: Vancomycin IV 1,000 MG/200 ML BAG 200 MG IV (19:02)
[2024-08-23] MEDS: 0.9% Normal Saline (500mL Bag) 500 ML 999 ML IV (19:06)
[2024-08-23] MEDS: 0.9% Normal Saline (1000mL) 1,000 ML 75 ML IV (20:09)
[2024-08-23] MEDS: Menthol/Lanolin/Calamine/Znox 113 GM Tube 1 APPLIC TOPICAL (21:16)
[2024-08-23 22:17] LABS: Bedside Glucose 166 mg/dL (74-106)
[2024-08-23] MEDS: Acetaminophen 325 MG Tablet 650 MG PO (22:42)
[2024-08-24 05:32] VITALS: BP 97/63; PULSE 60; RESP 18; TEMP 36.4; O2SAT 98
[2024-08-24] MEDS: Piperacil/Tazobactam 3.375 GM in 0.9% Normal Saline (50mL MB+) 50 ML IV ×2 (05:35→21:33)
[2024-08-24] MEDS: oxyCODONE 5 MG Tablet PO (05:38)
[2024-08-24 05:58] LABS: Bedside Glucose 150 mg/dL (74-106)
[2024-08-24 07:00] LABS: Absolute Lymphocyte Count 0.54 X10^3/uL (0.83-4.51); Absolute Neutrophil Count 7.4 X10^3/uL (2.0-7.7); Basophil# 0.01 X10^3/uL; Basophil% 0.1 % (0-1); Hematocrit 24.6 % (40-54); Hemoglobin 7.3 g/dL (13.0-16.5); Lymphocyte # 0.54 X10^3/ul (0.83-4.51); Lymphocyte % 6.3 % (19-41); Mean Corp Hgb Conc 29.7 g/dL (32-36); Mean Corpuscular Hgb 28.3 pg (27.0-32.0); Mean Corpuscular Volume 95.3 fL (80-94); Mean Platelet Vol. 12.4 fl (6.2-12.0); Monocyte# 0.52 X10^3/uL; NRBC Flagged by Analyzer 0 % (0-5); Neutrophil # 7.42 X10^3/uL (2.7-7.7); Neutrophil % 86.3 % (47-70); POSITIVE DIFFERENTIAL YES; POSITIVE MORPHOLOGY YES; Platelet Count 109 K/mm3 (150-450); RBC Distribution Width CV 17.8 % (11.6-14.6); RBC Distribution Width SD 61.4 fl (35.1-43.9); Red Blood Count 2.58 M/mm3 (4.6-6.2); White Blood Count 8.6 K/mm3 (4.4-11.0)
[2024-08-24 07:34] LABS: Differential Indicated SCAN CRITERIA MET
[2024-08-24 07:44] VITALS: BP 97/56; PULSE 53; RESP 18; TEMP 36.7; O2SAT 98
[2024-08-24] MEDS: Acetaminophen 325 MG Tablet 650 MG PO ×2 (08:51→14:56)
[2024-08-24] MEDS: Menthol/Lanolin/Calamine/Znox 113 GM Tube 1 APPLIC TOPICAL ×2 (08:52→21:28)
[2024-08-24 10:00] LABS: Erythrocyte Sedimentation Rate 82 mm/hr (0-20)
[2024-08-24 10:14] LABS: Procalcitonin 21.76 ng/mL (0.00-0.09)
[2024-08-24 10:45] LABS: Anion Gap 11 (5-15); BUN 71 mg/dL (7-18); BUN/Creat Ratio 19.9 RATIO (10-20); Calcium,Total 8.4 mg/dL (8.5-10.1); Chloride 99 mmol/L (98-107); Creatinine, Serum 3.56 mg/dL (0.70-1.30); EST Glomerular Filtration Rate 17 mL/min (>60); Est Glom Filt Rate - Afr Amer 21 mL/min (>60); Estimated Creatinine Clearance 16.36 ml/min; Glucose 151 mg/dL (74-106); Potassium 5.1 mmol/L (3.5-5.1); Sodium Level 137 mmol/L (136-145)
[2024-08-24 11:41] LABS: Bedside Glucose 155 mg/dL (74-106)
[2024-08-24 11:56] LABS: Bacteria 0 SEEN /hpf (None Seen); Mucous, Urine 0 SEEN /hpf (<or=2+); Squamous Epithelial Cells - UA 0 SEEN /hpf (0-5)
[2024-08-24 12:11] LABS: Color, Urine Amber (Yellow); Glucose, Dipstick Normal (Normal); Ketone-Dipstick Negative (Negative); Leukocyte Esterase-Dipstick 500 /ul (Negative); Nitrite-Dipstick Negative (Negative); Occult Blood-Urine 150 /ul (Negative); Protein-Dipstick 100 mg/dl (Negative); Urine Clarity Cloudy (Clear); Urine Urobilinogen 1 mg/dl (Normal)
[2024-08-24 13:00] VITALS: BP 97/56; PULSE 51; RESP 20; TEMP 36.6; O2SAT 98
[2024-08-24 13:01] LABS: Urine Bilirubin Dipstick 1 mg/dL (Negative)
[2024-08-24 13:03] LABS: Red Blood Cells-Urine 0-5 SEEN /hpf (0-5); White Blood Cells >100 SEEN /hpf (0-5)
[2024-08-24 15:55] VITALS: BP 94/53; PULSE 55; RESP 18; TEMP 36.5; O2SAT 98
[2024-08-24 17:19] LABS: Bedside Glucose 156 mg/dL (74-106)
[2024-08-24 21:23] VITALS: BP 84/68; PULSE 64; RESP 18; TEMP 36.4; O2SAT 95
[2024-08-24] MEDS: Glucerna Shake 120 ML LIQUID PO (21:37)
[2024-08-24] MEDS: Pravastatin 40 MG Tablet PO (21:37)
[2024-08-24 21:52] LABS: Bedside Glucose 165 mg/dL (74-106)
[2024-08-24 23:20] VITALS: BP 115/72; PULSE 62; RESP 18; TEMP 36.6; O2SAT 97
[2024-08-25 04:00] VITALS: BP 118/67; PULSE 64; RESP 18; TEMP 36.6; O2SAT 99
[2024-08-25 04:33] VITALS: BMI 26.6
[2024-08-25 07:11] LABS: Bedside Glucose 154 mg/dL (74-106)
[2024-08-25 08:06] LABS: Erythrocyte Sedimentation Rate 102 mm/hr (0-20)
[2024-08-25 08:10] LABS: Absolute Lymphocyte Count 0.39 X10^3/uL (0.83-4.51); Absolute Neutrophil Count 7.8 X10^3/uL (2.0-7.7); Basophil# 0.01 X10^3/uL; Basophil% 0.1 % (0-1); Eosinophil# 0.03 X10^3/uL; Eosinophils% 0.3 % (0-5); Hemoglobin 7.7 g/dL (13.0-16.5); Lymphocyte # 0.39 X10^3/ul (0.83-4.51); Lymphocyte % 4.4 % (19-41); Mean Corp Hgb Conc 29.6 g/dL (32-36); Mean Corpuscular Hgb 27.3 pg (27.0-32.0); Mean Corpuscular Volume 92.2 fL (80-94); Mean Platelet Vol. 12.6 fl (6.2-12.0); Monocyte# 0.52 X10^3/uL; Monocyte% 5.9 % (0-10); NRBC Flagged by Analyzer 0.3 % (0-5); Neutrophil # 7.84 X10^3/uL (2.7-7.7); POSITIVE COUNT YES; POSITIVE DIFFERENTIAL YES; POSITIVE MORPHOLOGY YES; Platelet Count 91 K/mm3 (150-450); RBC Distribution Width CV 17.5 % (11.6-14.6); RBC Distribution Width SD 58.7 fl (35.1-43.9); Red Blood Count 2.82 M/mm3 (4.6-6.2); White Blood Count 8.8 K/mm3 (4.4-11.0)
[2024-08-25 08:12] LABS: Anion Gap 9 (5-15); BUN 81 mg/dL (7-18); BUN/Creat Ratio 21.3 RATIO (10-20); Calcium,Total 8.5 mg/dL (8.5-10.1); Chloride 97 mmol/L (98-107); EST Glomerular Filtration Rate 16 mL/min (>60); Est Glom Filt Rate - Afr Amer 19 mL/min (>60); Estimated Creatinine Clearance 15.32 ml/min; Glucose 165 mg/dL (74-106); Magnesium 2.1 mg/dL (1.6-2.6); Phosphorus 5.1 mg/dL (2.5-4.9); Potassium 5.3 mmol/L (3.5-5.1); Sodium Level 135 mmol/L (136-145)
[2024-08-25] MEDS: Pantoprazole Sodium 40 MG Tablet PO ×2 (08:29→16:06)
[2024-08-25] MEDS: Piperacil/Tazobactam 3.375 GM in 0.9% Normal Saline (50mL MB+) 50 ML IV (08:29)
[2024-08-25] MEDS: Menthol/Lanolin/Calamine/Znox 113 GM Tube 1 APPLIC TOPICAL (08:29)
[2024-08-25 08:30] VITALS: BP 117/69; PULSE 70; RESP 16; TEMP 36.6; O2SAT 98
[2024-08-25 08:36] LABS: Differential Indicated SCAN CRITERIA MET
[2024-08-25] MEDS: Glucerna Shake 120 ML LIQUID PO (08:36)
[2024-08-25 09:10] VITALS: O2SAT 95
[2024-08-25 09:38] LABS: Procalcitonin 13.25 ng/mL (0.00-0.09)
[2024-08-25 09:50] LABS: Anisocytosis 2+; Differential Comment SCANNED; Hypochromasia 1+; Microcytosis 1+; Ovalocyte 2+; Platelet Estimate MOD DEC (ADEQ); Platelet Morphology LARGE
[2024-08-25 09:52] LABS: Polychromasia 1+; Target Cells 1+; Tear Drop Cell RARE
[2024-08-25] MEDS: Acetaminophen 325 MG Tablet 650 MG PO (11:07)
[2024-08-25] MEDS: oxyCODONE 5 MG Tablet 2.5 MG PO (11:07)
[2024-08-25 11:17] LABS: Bedside Glucose 159 mg/dL (74-106)
[2024-08-25 14:30] VITALS: BP 124/72; PULSE 72; RESP 18; TEMP 36.4; O2SAT 96
[2024-08-25 16:11] LABS: Bedside Glucose 173 mg/dL (74-106)
[2024-08-25 21:27] VITALS: BP 115/66; PULSE 64; RESP 18; TEMP 36.4; O2SAT 94
[2024-08-26] VITALS (7 sets, daily range): BP systolic 104–115; BP diastolic 60–71; PULSE 53–70; RESP 18; TEMP 36.1–36.5; O2SAT 86–98; BMI 26.8
[2024-08-26 06:14] LABS: Absolute Lymphocyte Count 0.61 X10^3/uL (0.83-4.51); Absolute Neutrophil Count 6.3 X10^3/uL (2.0-7.7); Basophil# 0.02 X10^3/uL; Basophil% 0.3 % (0-1); Eosinophil# 0.02 X10^3/uL; Eosinophils% 0.3 % (0-5); Hematocrit 27.2 % (40-54); Hemoglobin 8.3 g/dL (13.0-16.5); Lymphocyte # 0.61 X10^3/ul (0.83-4.51); Mean Corp Hgb Conc 30.5 g/dL (32-36); Mean Corpuscular Hgb 27.6 pg (27.0-32.0); Mean Corpuscular Volume 90.4 fL (80-94); Mean Platelet Vol. 11.2 fl (6.2-12.0); Monocyte# 0.66 X10^3/uL; Monocyte% 8.6 % (0-10); NRBC Flagged by Analyzer 0.5 % (0-5); Neutrophil # 6.29 X10^3/uL (2.7-7.7); Neutrophil % 82.1 % (47-70); POSITIVE COUNT YES; Platelet Count 91 K/mm3 (150-450); RBC Distribution Width CV 17.6 % (11.6-14.6); Red Blood Count 3.01 M/mm3 (4.6-6.2); White Blood Count 7.7 K/mm3 (4.4-11.0)
[2024-08-26] MEDS: Insulin Lispro 100 UNIT/ML INSULN.PEN SC (06:25)
[2024-08-26 06:45] LABS: Anion Gap 7 (5-15); BUN 90 mg/dL (7-18); BUN/Creat Ratio 23.3 RATIO (10-20); Calcium,Total 8.5 mg/dL (8.5-10.1); Chloride 96 mmol/L (98-107); Creatinine, Serum 3.86 mg/dL (0.70-1.30); EST Glomerular Filtration Rate 16 mL/min (>60); Est Glom Filt Rate - Afr Amer 19 mL/min (>60); Estimated Creatinine Clearance 15.08 ml/min; Glucose 168 mg/dL (74-106); Potassium 5.3 mmol/L (3.5-5.1); Sodium Level 131 mmol/L (136-145)
[2024-08-26 06:54] LABS: Bedside Glucose 164 mg/dL (74-106)
[2024-08-26] MEDS: Menthol/Lanolin/Calamine/Znox 113 GM Tube 1 APPLIC TOPICAL ×2 (10:30→20:18)
[2024-08-26] MEDS: Glucerna Shake 120 ML LIQUID PO ×2 (10:30→20:17)
[2024-08-26] MEDS: Pantoprazole Sodium 40 MG Tablet PO (10:30)
[2024-08-26] MEDS: Piperacil/Tazobactam 3.375 GM in 0.9% Normal Saline (50mL MB+) 50 ML IV ×2 (10:30→20:17)
[2024-08-26] MEDS: Acetaminophen 325 MG Tablet 650 MG PO (10:41)
[2024-08-26 11:52] LABS: Bedside Glucose 139 mg/dL (74-106)
[2024-08-26] MEDS: Pravastatin 40 MG Tablet PO (20:17)
[2024-08-27 02:50] VITALS: BP 118/76; PULSE 54; RESP 20; TEMP 36.2; O2SAT 100
[2024-08-27 03:11] VITALS: BMI 27.3
[2024-08-27 06:42] LABS: Absolute Neutrophil Count 4.7 X10^3/uL (2.0-7.7); Basophil# 0.01 X10^3/uL; Basophil% 0.2 % (0-1); Eosinophil# 0.08 X10^3/uL; Eosinophils% 1.3 % (0-5); Hematocrit 27.2 % (40-54); Hemoglobin 8.3 g/dL (13.0-16.5); Lymphocyte % 9.9 % (19-41); Mean Corp Hgb Conc 30.5 g/dL (32-36); Mean Corpuscular Hgb 27.5 pg (27.0-32.0); Mean Corpuscular Volume 90.1 fL (80-94); Mean Platelet Vol. 11.9 fl (6.2-12.0); Monocyte% 9.9 % (0-10); NRBC Flagged by Analyzer 0.5 % (0-5); Neutrophil # 4.69 X10^3/uL (2.7-7.7); Neutrophil % 77.7 % (47-70); POSITIVE COUNT YES; POSITIVE DIFFERENTIAL YES; Platelet Count 91 K/mm3 (150-450); RBC Distribution Width CV 17.8 % (11.6-14.6); RBC Distribution Width SD 58.3 fl (35.1-43.9); Red Blood Count 3.02 M/mm3 (4.6-6.2)
[2024-08-27 07:08] LABS: Anion Gap 8 (5-15); BUN 92 mg/dL (7-18); BUN/Creat Ratio 23.5 RATIO (10-20); Calcium,Total 8.3 mg/dL (8.5-10.1); Chloride 99 mmol/L (98-107); Creatinine, Serum 3.92 mg/dL (0.70-1.30); EST Glomerular Filtration Rate 15 mL/min (>60); Est Glom Filt Rate - Afr Amer 19 mL/min (>60); Estimated Creatinine Clearance 14.85 ml/min; Glucose 209 mg/dL (74-106); Potassium 4.9 mmol/L (3.5-5.1); Sodium Level 136 mmol/L (136-145)
[2024-08-27 08:45] VITALS: BP 109/62; PULSE 52; RESP 18; TEMP 36.1; O2SAT 99
[2024-08-27] MEDS: Menthol/Lanolin/Calamine/Znox 113 GM Tube 1 APPLIC TOPICAL ×2 (08:47→21:29)
[2024-08-27] MEDS: Glucerna Shake 120 ML LIQUID PO (08:48)
[2024-08-27] MEDS: Pantoprazole Sodium 40 MG Tablet PO (08:48)
[2024-08-27 08:59] VITALS: O2SAT 99
[2024-08-27] MEDS: Piperacil/Tazobactam 3.375 GM in 0.9% Normal Saline (50mL MB+) 50 ML IV ×2 (10:18→21:30)
[2024-08-27 13:05] VITALS: O2SAT 94
[2024-08-27 15:20] VITALS: BP 110/66; PULSE 59; RESP 16; TEMP 36.2; O2SAT 97
[2024-08-27] MEDS: Acetaminophen 325 MG Tablet 650 MG PO (21:29)
[2024-08-27] MEDS: morphine (oral solution) 10MG/0.5ML Syringe 10 MG SL/PO (21:29)
[2024-08-27 21:34] VITALS: BP 117/67; PULSE 78; RESP 22; TEMP 36.4; O2SAT 100
[2024-08-28 04:20] VITALS: BP 117/64; PULSE 53; RESP 19; TEMP 36.6; O2SAT 96
[2024-08-28 05:03] VITALS: BMI 27.3
[2024-08-28 06:25] LABS: Absolute Lymphocyte Count 0.73 X10^3/uL (0.83-4.51); Absolute Neutrophil Count 3.6 X10^3/uL (2.0-7.7); Eosinophil# 0.08 X10^3/uL; Eosinophils% 1.6 % (0-5); Hematocrit 28.1 % (40-54); Hemoglobin 8.3 g/dL (13.0-16.5); Lymphocyte # 0.73 X10^3/ul (0.83-4.51); Lymphocyte % 14.6 % (19-41); Mean Corp Hgb Conc 29.5 g/dL (32-36); Mean Corpuscular Hgb 27.4 pg (27.0-32.0); Mean Corpuscular Volume 92.7 fL (80-94); Mean Platelet Vol. 12.2 fl (6.2-12.0); Monocyte# 0.57 X10^3/uL; Monocyte% 11.4 % (0-10); NRBC Flagged by Analyzer 0 % (0-5); Neutrophil # 3.59 X10^3/uL (2.7-7.7); Neutrophil % 71.6 % (47-70); Platelet Count 100 K/mm3 (150-450); RBC Distribution Width CV 18.2 % (11.6-14.6); RBC Distribution Width SD 60.9 fl (35.1-43.9); Red Blood Count 3.03 M/mm3 (4.6-6.2)
[2024-08-28 07:02] LABS: Anion Gap 9 (5-15); BUN 90 mg/dL (7-18); BUN/Creat Ratio 23.1 RATIO (10-20); Calcium,Total 8.1 mg/dL (8.5-10.1); Chloride 100 mmol/L (98-107); EST Glomerular Filtration Rate 16 mL/min (>60); Est Glom Filt Rate - Afr Amer 19 mL/min (>60); Estimated Creatinine Clearance 14.93 ml/min; Glucose 195 mg/dL (74-106); Potassium 4.9 mmol/L (3.5-5.1); Sodium Level 136 mmol/L (136-145)
[2024-08-28 10:14] VITALS: O2SAT 96
[2024-08-28 10:30] VITALS: BP 112/65; PULSE 50; RESP 12; TEMP 36.2; O2SAT 99
[2024-08-28] MEDS: Piperacil/Tazobactam 3.375 GM in 0.9% Normal Saline (50mL MB+) 50 ML IV ×2 (10:52→21:34)
[2024-08-28] MEDS: Acetaminophen 325 MG Tablet 650 MG PO ×2 (10:52→17:04)
[2024-08-28] MEDS: Menthol/Lanolin/Calamine/Znox 113 GM Tube 1 APPLIC TOPICAL ×2 (10:52→21:34)
[2024-08-28] MEDS: oxyCODONE 5 MG Tablet 2.5 MG PO ×2 (10:52→17:03)
[2024-08-28] MEDS: Pantoprazole Sodium 40 MG Tablet PO ×2 (10:52→17:03)
[2024-08-28] MEDS: 0.9% Saline Lock 10 ML Syringe IV ×2 (17:03→21:34)
[2024-08-28 21:24] VITALS: BP 116/68; PULSE 49; RESP 16; TEMP 36.1; O2SAT 99
[2024-08-28] MEDS: Latanoprost 0.005% 1 Bottle 1 DRP OPHTHALMIC (21:37)
[2024-08-29 06:00] VITALS: BMI 27.3
[2024-08-29 08:16] LABS: Absolute Lymphocyte Count 0.68 X10^3/uL (0.83-4.51); Absolute Neutrophil Count 3.8 X10^3/uL (2.0-7.7); Basophil# 0.01 X10^3/uL; Basophil% 0.2 % (0-1); Eosinophil# 0.19 X10^3/uL; Eosinophils% 3.7 % (0-5); Hemoglobin 8.5 g/dL (13.0-16.5); Lymphocyte # 0.68 X10^3/ul (0.83-4.51); Lymphocyte % 13.1 % (19-41); Mean Corp Hgb Conc 28.3 g/dL (32-36); Mean Corpuscular Hgb 26.7 pg (27.0-32.0); Mean Corpuscular Volume 94.3 fL (80-94); Mean Platelet Vol. 12.1 fl (6.2-12.0); Monocyte# 0.47 X10^3/uL; Monocyte% 9.1 % (0-10); NRBC Flagged by Analyzer 0 % (0-5); Neutrophil # 3.78 X10^3/uL (2.7-7.7); Neutrophil % 72.9 % (47-70); Platelet Count 117 K/mm3 (150-450); RBC Distribution Width CV 18.2 % (11.6-14.6); RBC Distribution Width SD 61.2 fl (35.1-43.9); Red Blood Count 3.18 M/mm3 (4.6-6.2); White Blood Count 5.2 K/mm3 (4.4-11.0)
[2024-08-29 10:10] LABS: Anion Gap 8 (5-15); BUN 93 mg/dL (7-18); BUN/Creat Ratio 27.1 RATIO (10-20); Calcium,Total 8.9 mg/dL (8.5-10.1); Chloride 100 mmol/L (98-107); Creatinine, Serum 3.43 mg/dL (0.70-1.30); EST Glomerular Filtration Rate 18 mL/min (>60); Est Glom Filt Rate - Afr Amer 22 mL/min (>60); Estimated Creatinine Clearance 16.98 ml/min; Glucose 213 mg/dL (74-106); Potassium 4.8 mmol/L (3.5-5.1); Sodium Level 136 mmol/L (136-145)
[2024-08-29 11:49] VITALS: BP 116/60; PULSE 50; RESP 16; TEMP 36.3; O2SAT 99
[2024-08-29] MEDS: Menthol/Lanolin/Calamine/Znox 113 GM Tube 1 APPLIC TOPICAL (11:51)
[2024-08-29] MEDS: Pantoprazole Sodium 40 MG Tablet PO (11:51)
[2024-08-29] MEDS: oxyCODONE 5 MG Tablet 2.5 MG PO (11:58)
[2024-08-29] MEDS: Acetaminophen 325 MG Tablet 650 MG PO (11:59)
[2024-08-29] MEDS: Nystatin Powder 15gm Bottle 1 APPLIC TOPICAL (12:03)
[2024-08-29] MEDS: 0.9% Saline Lock 10 ML Syringe IV (12:06)
[2024-08-29] MEDS: Piperacil/Tazobactam 3.375 GM in 0.9% Normal Saline (50mL MB+) 50 ML IV (12:09)
== END 2024-08-29 15:08 | disposition hospice, home (50) | DRG 291 ==
LOC: ED 11:09 → PCU 12:40
PROVIDERS: Internal Medicine; Admitting Provider Student in an Organized Health Care Education/Training Program; Emergency Provider Emergency Medicine; PCP Family Medicine
DX: I13.0 Hypertensive heart and chronic kidney disease with heart failure and stage 1 through stage 4 chronic kidney disease, or unspecified chronic kidney disease (principal); N17.0 Acute kidney failure with tubular necrosis; I50.43 Acute on chronic combined systolic (congestive) and diastolic (congestive) heart failure; R78.81 Bacteremia; I24.89 Other forms of acute ischemic heart disease; L03.116 Cellulitis of left lower limb; I85.00 Esophageal varices without bleeding; D63.1 Anemia in chronic kidney disease; B96.5 Pseudomonas (aeruginosa) (mallei) (pseudomallei) as the cause of diseases classified elsewhere; Z51.5 Encounter for palliative care; E11.22 Type 2 diabetes mellitus with diabetic chronic kidney disease; N18.32 Chronic kidney disease, stage 3b; I27.20 Pulmonary hypertension, unspecified; I35.0 Nonrheumatic aortic (valve) stenosis; I48.91 Unspecified atrial fibrillation; E78.00 Pure hypercholesterolemia, unspecified; M79.672 Pain in left foot; I44.7 Left bundle-branch block, unspecified; E11.51 Type 2 diabetes mellitus with diabetic peripheral angiopathy without gangrene; E78.5 Hyperlipidemia, unspecified; E11.40 Type 2 diabetes mellitus with diabetic neuropathy, unspecified; Z79.4 Long term (current) use of insulin; I25.10 Atherosclerotic heart disease of native coronary artery without angina pectoris; E11.59 Type 2 diabetes mellitus with other circulatory complications; D50.9 Iron deficiency anemia, unspecified; K21.9 Gastro-esophageal reflux disease without esophagitis; I87.2 Venous insufficiency (chronic) (peripheral); Z82.3 Family history of stroke; Z87.891 Personal history of nicotine dependence; R62.7 Adult failure to thrive; Z80.0 Family history of malignant neoplasm of digestive organs; Z66 Do not resuscitate
CPT/HCPCS: 36415; 71046; 73590; 73620; 73700; 80048; 80202; 81001; 82962; 83735; 83880; 84100; 84145; 84484; 85025; 85652; 86140; 87040; 87070; 87077; 87086; 87184; 87186; 87205; 93005; 93970; 94640; 97162; 97166; 97530; 99283; J7030; J7040; A4216; J1940